=== PATIENT | female | born 1985 | race Caucasian/White ===

== ENCOUNTER 2023-03-10 13:12 | Outpatient (OUT) | payer OTHER, SELFPAY ==
--- NOTE | 2023-03-10 13:44 | US_ITS ---
The [address] [address] Patient Name: ARIEL SALAS MRN: [id number] date: 1985 Sex: F Assigned Patient Location: US Current Patient Location: US Accession/Order Number: [id number] Exam Date: 03/10/2023 13:45 Report Date: 03/10/2023 15:18 At the request of: ABI RIVERO Procedure: US pelvis w/ transvaginal EXAMINATION: US pelvis w/ transvaginal HISTORY: Pelvic Pain COMPARISON: No relevant comparison available. FINDINGS: The uterus is retroflexed. The uterus is normal in size, contour and echotexture measuring 8.5 x 4.8 x 5.8 cm. The endometrium measures 3 mm. Acoustic shadowing in the endometrial cavity consistent with an IUD poorly visualized on these images The right ovary is 1.9 x 1.4 x 1.3 cm. Normal color and Doppler flow. Area of anechoic echogenicity measuring 1.2 cm, cyst versus follicle The left ovary measures 3.3 x 2.5 x 2.5 cm. Normal color and Doppler flow. Area of anechoic echogenicity measuring 2.5 cm, simple cyst No free fluid US/US pelvis w/ transvaginal IMPRESSION: Bilateral ovarian cysts Electronically authenticated by: JOYCE POWELL Date: 03/10/2023 15:18
[2023-03-10 14:17] LABS: Basophils Absolute Auto 0.1 10^3/uL (0.0-0.1); Basophils Percent Auto 0.6 % (0.2-2.0); Eosinophils Absolute Auto 0.2 10^3/uL (0.0-0.7); Eosinophils Percent Auto 1.6 % (0.9-7.0); Hematocrit 40.4 % (36.0-48.0); Hemoglobin 13.3 g/dL (12.0-16.0); Immature Granulocytes Abs Auto 0.03 10^3/uL (0.00-0.03); Immature Granulocytes Pct Auto 0.3 % (0.0-0.5); Lymphocytes Absolute Auto 3.6 10^3/uL (1.2-3.8); Lymphocytes Percent Auto 34.9 % (20.5-60.0); Mean Corpuscular HGB Conc 32.9 g/dL (29.9-35.2); Mean Corpuscular Hemoglobin 30.2 pg (26.7-34.0); Mean Corpuscular Volume 91.6 fL (81.0-99.0); Mean Platelet Volume 8.8 fL (9.5-13.5); Monocytes Absolute Auto 0.8 10^3/uL (0.3-0.8); Monocytes Percent Auto 7.9 % (1.7-12.0); Neutrophils Absolute Auto 5.6 10^3/uL (1.4-6.5); Neutrophils Percent Auto 54.7 % (43.0-75.0); Platelet Count 311 10^3/uL (150-450); Red Blood Count 4.41 10^6/uL (4.20-5.40); Red Cell Distribution Width 12.2 % (11.0-15.0); White Blood Count 10.2 10^3/uL (4.0-11.0)
[2023-03-10 14:30] LABS: INR 1.03; Partial Thromboplastin Time 33.4 sec (22.3-36.2); Prothrombin Time 10.9 sec (9.0-11.6)
[2023-03-10 15:04] LABS: Estimated Average Glucose 100 mg/dL; Glycohemoglobin A1C 5.1 % (4.5-6.2)
[2023-03-10 15:18] LABS: HCG Quantitative <1 mIU/mL; Thyroid Stimulating Hormone 1.774 uIU/mL (0.358-3.740)
[2023-03-10 15:40] LABS: Free T4 0.84 ng/dL (0.76-1.46)
== END 2023-03-10 13:13 | disposition home or self-care (01) ==
LOC: US 13:15
PROVIDERS: PCP Family Medicine; Visit Provider Obstetrics & Gynecology
DX: N92.0 Excessive and frequent menstruation with regular cycle (principal); N83.292 Other ovarian cyst, left side; N83.291 Other ovarian cyst, right side
CPT/HCPCS: 36415; 76830; 76856; 83036; 84439; 84443; 84702; 85025; 85610; 85730

== ENCOUNTER 2023-04-07 11:16 | Outpatient (REF) | payer OTHER, SELFPAY ==
--- OUTSIDE RECORDS SUMMARY | 2023-04-12 11:25 | XMS_ITS | CCD ---
Author Name Unknown Address [address] 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 Washing Machine Loader And Puller Name Role Phone BIN DE LA CRUZ Attending Unavailable BIN DE LA CRUZ Consulting Unavailable BIN DE LA CRUZ Admitting Unavailable CHERYL DEGROOT Consulting Unavailable SERA PEREZ Attending Unavailable SERA PEREZ Consulting Unavailable SERA PEREZ Admitting Unavailable OSMAR FLORES Primary Care Unavailable Carmencita Hernandez Consulting Unavailable MD Trevon Pruitt Attending Provider [phone] ABI LAZO Attending Unavailable Trevon Pruitt Admitting Unavailable Trevon Pruitt Attending Unavailable Sajan LIME PULLER-C, Lashell A Primary Care Unavailable Sajan LIME PULLER-C, Lashell A Primary Care Unavailable Sajan LIME PULLER-C, Lashell A Attending Unavailable Sajan LIME PULLER-C, Lashell A Admitting Unavailable Sajan LIME PULLER-C, Lashell A Primary Care Unavailable Sajan LIME PULLER-C, Lashell A Admitting Unavailable Sajan LIME PULLER-C, Lashell A Attending Unavailable Sajan LIME PULLER-C, Lashell A Primary Care Unavailable Ezekiel Wasserman Admitting Unavaila Ezekiel Fontanez Attending Unavaila ble Sajan LIME PULLER-C, Lashell A Primary Care Unavailable Sajan LIME PULLER-C, Lashell A Attending Unavailable Sajan LIME PULLER-C, Lashell A Primary Care Unavailable Sajan LIME PULLER-C, Lashell A Attending Unavailable Sajan LIME PULLER-C, Lashell A Primary Care Unavailable Trevon Pruitt Attending Unavailable Sajan LIME PULLER-C, Lashell A Referring Unavailable Trevon Pruitt Attending Unavailable Sajan LIME PULLER-C, Lashell A Primary Care Unavailable Tien Felix Admitting Unavailabl e Tien Felix Attending Unavailabl e Sajan LIME PULLER-C, Lashell A Primary Care Unavailable Sajan LIME PULLER-C, Lashell A Primary Care Unavailable Sajan LIME PULLER-C, Lashell A Admitting Unavailable Sajan LIME PULLER-C, Lashell A Attending Unavailable Sajan LIME PULLER-C, Lashell A Admitting Unavailable Sajan LIME PULLER-C, Lashell A Attending Unavailable Sajan LIME PULLER-C, Lashell A Primary Care Unavailable Abi Lazo Attending Unavailable Abi Lazo Admitting Unavailable Trevon rPuitt Admitting Unavailable Trevon Pruitt Attending Unavailable Allergies Allergy Classification Reported Allergen(s) Allergy Type Date of Onset Reaction(s) Facility (1 source) No Known Medication Allergies; Translations: [No Known Medication Allergies] Propensity to adverse reactions to drug (disorder) [facility] Repository Problems Active Problems Problem Classification Problem Date Documented Da te Episodic/Chronic Other nervous system disorders (4 sources) Dysarthria and anarthria; Translations: [DYSARTHRIA AND ANARTHRIA] Onset: 03-23-2020 Episodic Substance-related disorders (2 sources) Cannabis abuse, uncomplicated; Translations: [Nicotine dependence, cigarettes, uncomplicated] Onset: 03-26-2020 Chronic Transient cerebral ischemia (1 source) Transient cerebral ischemic attack, unspecified; Translations: [TRANS CERBRAL ISCHEMIC ATTACK UNS] Onset: 03-26-2020 Chronic Past or Other Problems Problem Classification Problem Date Documented Da te Episodic/Chronic Acute bronchitis (1 source) Acute bronchitis, unspecified; Translations: [ACUTE BRONCHITIS UNSPECIFIED] Onset: 05-15-2019 Episodic Fever of unknown origin (1 source) Fever, unspecified; Translations: [FEVER UNSPECIFIED] Onset: 05-15-2019 Episodic Other lower respiratory disease (4 sources) Shortness of breath; Translations: [SHORTNESS OF BREATH] Onset: 05-11-2019 Episodic Results Test Name Value Interpretation Reference Range Facility [facility] 04-07-2023 L Specimen: [id number] Received: 04/08/23 Status: SALIMA Kilpatrick Num: [id number] Spec Type: Surgical Subm Dr: Abi Lazo Tissues: A Endometrium - Biopsy (EMBX) Procedures: HE/2, Gross/Micro L4 Age/ Patient Sex Location Account Attending Physician Ariel Salas 38/F LABELL [id number] Abi Lazo SPEC NUM: [id number] RECD: 04/08/23 STATUS: SALIMA KILPATRICK NUM: [id number] CRISTINA: 04/07/23- SUBM DR: Abi Lazo ENTERED: 04/08/23-12[address] [facility] DR: Ajit,Lab SPEC TYPE: Surgical DEPT: JEFF GIRON ORDERED: HE/2, Gross/Micro L4 ORDERED: HE/2, Gross/Micro L4 Pathological Diagnosis Endometrium, Curettings: Scanty Fragments Of Cervical Mucosa with acute inflammation. Clinical Information Menorrhagia with irregular periods Gross Description Received in formalin labeled with the patient's name, date of and EM BX is a 3 x 2.2 x 0.2 cm aggregate of adams soft tissue and mucoid material. Entirely submitted in one cassette labeled A1. CPT Codes 00842 Specimen: [id number] Received: 04/08/23-1239 Status: SALIMA Kilpatrick Num: [id number] Spec Type: Surgical Subm Dr: Abi Lazo Tissues: A Endometrium - Biopsy (EMBX) Procedures: HE/2, Gross/Micro L4 Patient: Ariel Salas [id number] (Continued) Signed (signature on file) Micheal Napier MD 04/10/23 1211 [facility] Coding Summaryon 03-04-2023 Coding Summary HTMLBase 64 CwufwvarBKf3zAl+PGhlYWQ +[id number] NMTElOSywgQVBQTElOSyIgb eTkSC4aoOQcHBCo IC8+PS2xGFRiMytobFUgu3C 0wWY0S21iku3sAScgdHI2VC PfZbBdhflaq9onbVe3UWrqU mluOyBt BXVtlX04EZN0sC91Ys56sVQ joHDpj6nlaDh6LbDxDLDyFM C9eFnlYBwjk4KjQUFfN13ow ZDiq7K5 RJKcwGjdnBDnZsYnhCZ5lS7 hBXgmzrlza0fqhasaRqg9lu 71rVPmt3V8zKI7B7WrvhT2X GJvbGQg DomcrBXViB2alfvnn6iulvl tIuIkYCEcDAd5EYw0FSXihX cfWkEiTJ52TGB6RTHollMmW 2FsLWFs lXhhHrZ7x8Z5Vs1ZV8HTEpg fJ2CIPMLQLCgtqEG+PC90cj 50U5TpAdahZuc9ODDaDOK8d YX7mH6e SGNnKBtxq1J2bBF4E2KmqzS szr5ec5hhEFZwXOhyA00cmB Mpr8O8JZKshOC2YNGitSizR iBzaG93 Oyc+AIGdbWdqv1RzVgzmc0v yr2ntuHe8OrdvWUDuliAuyZ okLWV6m4ScKv9fLRZceXL4f TD1jY3b RtErKbB5KJerF485RpVqvDR kEvuhM19hK1JugLM+PHRyPj n6QQEquGrlWI0xC1LvKXKvd mctbGVm zMsaHP1vPZWkoyvqHVUhbV9 mAHSoV4e6LiWcMtJ7SUrwA1 BuARJossluDd81xY1pPpTnI lH0TBot V7YrhmP5OOHfuQLoTDfjAOH 1Y22mo5L3SPUmHAKaQFX3xQ S5iT8ypNnbvkjodYRppKeji mVydGlj KLnoYXipD752XHUovUefFeR vZGluZyBEYXRlOiAgMDEvMj UvMjAyNDwvdGQ+IGXnVAI7z WxlPSAn hWStFEfvCu9pzMvdpGiaSN1 oQAFjmexxKJAljH1hEHJcnE DwzAzsJC0vAUHextsxq480Q iAxMHB0 CMJumBGsL8SdnS9zLcAcNYS vARMvV7AbzRVsFHjuH551QE xjCaT6EWXbbbMxZ0PeQTFzv WduOiB0 r9D5St7Zg7OnpskkZ7VhrQM eLeHlKfweWGa9X2IwDwiqkY I+VC80ZSRoGG17PFg5YHB9s WxlPSdi MIWpL0ZklG8dMvSsDAFdOPT kOyc+PHRhYmxlIHdpZHRoPS imWCYrOcLtxBykQC4zZy7mI GVyLWNv xMmvjHTkGnXpx4wgPKMiIIe mUA9clLzyX5PafQN1DVNwt8 s2Xr82Y97jN5DhyBY+PGNvb ZA9dMS9 zP2tMsHzYiK0TZxpA533CwT haNZaIawgg0oaj6bdcYt9Jb J6KJWdvuHcaNvoITO3z4NyT c26G57u IHdpZHRoPSIxNSUiIHZhbGl skj9hrL4dZt0+TWPhlBE4cJ O1tZ6wXmHwFxP2VZjdR609O nRvcCIv Ktajg7kpn9dolMn4SoUjUEK nodCpwPxtXQE3d5HsLb39T7 OdeBtyn1EkSkj3qf21mQFcw 6X4lVX1 T9NbXHFlzqusbDJliHyiFF0 eHNOrhhreKTDjbL8oBGVtI2 p2AyTnZxR3ROvuC5NdgzS3R GJvbGQg BHLtyCNXtJ9muqpfv5qncdt vBeIlJMOfHAd8FAg2KPVhgR lzMgEnYWQ0ZuQ3YIO6wUQig A7vyKjv gtxooJ9rBpa+SRR7aDXitNJ LWU7cItghkLV+HJYjQAC0mY owSEyfAXEclB8dOGVnJ9p2F iAwLjA1 JHczI4SdpxS4PSGwaNMlIWX zvMYOcP4zhxicy5osogkyXg ZvXVXmIGp7RUd3YBFllXqtA iBsZWZ0 BbD8WZR2fJImaO5kpAnjkvr noD9mXci+OgprgVrsWPI2JO m8H7QnIuq2RRZlzJdaEF3vc GFkZGlu Sf5bbRusjRzvBW8rLNJmksj jf175FbFpa1hhNIWhrULqDK jxCBH8W19xa9O9VQEqADBmC QC8cYT2 jS2cdKjkmwgxgETddHokynT nvGrrWImgYVgsT323EURqmD skChIzTQk6Z4XcYru7HULif DecVA1i uHZoBOxkBd0njMjkaBaoLQ6 lFIQppocui468QyCvp4hcZM YgyMQhTPpvQDD6D47py1M5G CMwMDAw XKZ4fQO5qS1uzOhxbfersWJ mdDsgdmVydGljYWwtYWxpZ2 95FKDzjJqeEpNbiBo9X0YbU cr4HFTh zFhtSH5kkNDyNSvxHr8erSc rnQpaWF7vOGBjpjdzl883Cb Zuy2hiSLSdvCYyEZiyPCH9N 67ez5U8 FUXvPPGhEPU7aCH3rJ8dwVr nbjogbGVmdDsgdmVydGljYW euLAdjK134ACUygDgsXeKrj GllbnQg FHuhGYj9Z8EyWrvmyHT+PC9 4VPHzSB91qOPewUGlp4dtwE r9UuAxYSGpWNL9iQhaQUwjk 3JkZXIt F51czEUfn9Y9SGFynSzlrSO mRbIuuIS6sQ5kMXpiftzjn9 hxlezlRpmkq5kzcz43fA47O 29sIHdp ZHRoPSIzMCUiIHZhbGlnbj0 hfE4mCt8+NWKpfQS2aFB4zY 6gTSAjPiE0YTrwP242FxArg CIvPjxj s9xgj7hqiTp0WpO8CWPdwhB mhQhpRWD3o1KzEv26S04vZD dpZHRoPSIyMCUiIHZhbGlnb o9reI1d Ii8+CBMasEG5pBT0jQ7qKaL vVeN8LEflS275YtEpbGBuKp wtD73wZ8IaaRP+ESExAne9X CBzdHls HO5wxPDrXXxkGm5sGHB1LbF eAyOzHFlmS6IvFSWclslwxp cmoRS8MOCzXBEccX70Xl7zt DogMTBw qAZEfP2gnezmn5bisyxgCfK pALNtMRt6FJc2PNCkpVicLz AsANL2TyU6HGP2tTMimX8zr Glnbjog hH0iH6UiTWIquplnVf36qX4 hFvFgXiF4KUczOav+TUlMTE VSLCBTSEFXTkVMTEUgRTwvd GQ+PHRk DZF1lFzqVFtcMIOgfQ0uETM sW8j8TvSlEhZ2TFpuX1InTV GhjyvpVu04rO0ySqQsGjQ4K YzwD5Aq cdE8CVFmjASdWKaeYXN0U76 ih9I4NXYhLJDyOMM8yVS2tB 1hbGlnbjogbGVmdDsgdmVyd GljYWwt YXbaW045RIBnmNbxJvYtPcH gRhE3FQj1J1TsOnj3IRPxjA rcLU4wgNAkNSuaVg9nmJanw MgsMB7g QRWlcbouGXEwrB5jUXTpvRI pnZetZS7hHJMtktxsn396Sg YzPCM8TBAxnMDcC7PjdD5nC iAjMDAw AVBaH3JkyOEzNDwzI265KOh hRbB4NOHdcqYvK3OvZCGumR ghOeN4c7M1Ye9eJQUBGWKnl zwvdGQ+ PPPxQQB1zOfvIQvyZTXrzK0 gYYUuI2p4RgFsDfJ5HYmaM9 NpPDVfuhghDx63kP2gUuIoE aC9QLgj Z8OmnrO5SZTqtTDnULibHOG 0E78ew5R9MEPvQBHoARX1hF A9dF5qyLsymgnmwGSwvMdhk mVydGlj MQdgHTunW139CNSfeDqzXzF FTUFMRTwvdGQ+ZMBeLNF4uG qpYJcbSMSooE7yOZWwG6u1H iAwLjA1 HCpyZ5QwGFYqmigoQj39kN8 zMhReDsW6SNczU8RmkmA6OU JjqQFePYekKHG8W60ay6R4X CMwMDAw YYB7mTO3mD1rzDmfpuhdsBZ mdDsgdmVydGljYWwtYWxpZ2 17SFHydErzBf1CCT83UR53L 3RyPjwv dGFibGU+PHRhYmxlIHdpZHR iSWjrQNPjHdIbtSyzZO5wGp 9yZGVyLWNvbGxhcHNlOiBjb 2xsYXBz UFehGB0swCnuS4WimLK6HVQ qq6o6Wt71R42pQ2QnpST+PG LqfIJ8lCY5uJ0xQgYlWmY6E LaaD149 AdZxaTDvWlvxc8msw5wtxLo 5DwQvXZUstlHdxMjuJMW6x8 PjZs04M75sMBzfNGOfJWBcH CUiIHZh oMcyqv1dvU8dWu6+PGNvbCB 0hIN3vE4qXwUjOoW6JUvcY6 49UlLvyBKwSpmyF10kX6Tqw XA+PHRy Elo0LYGvbRdvDG4geJRdRAp sCa2uWQL3ZnFfZpDjHKevY3 PqCTWbodvitbadjDM1PBYjF DUwaW47 Zi9drBulQx9cYASvZNA3AKG rrZXbP2NmlD6eScJeUESzGM VcG6ZneIVeNCvyS522SZvjG pL2HWXm cfKmH5QpDUZxiQxcBcZ9t8U 8At2NcUadvOOqMJ0hAqXqCL r0O5EgYnt3LLAlkUquVS1iz GFkZGlu Jx6ziLdvdVmbDG1kAHLnaaz dk049JyTkk7hiCZCtaSWdOK thYZS5I36pw9U2VLVxIJDyW HD3sGR1 nK7xpAvolbseqFZraTtjnyU rjCisBBjwOPbmA635WWBswA gjLsHHJrh1X6AeIgd3PITxf UajVU0b jPRsCEaaHw9owXjhqNuyZM6 zFBFcmxawm045VnCes2yuID XcuNEaWEiyLHW9C28ae4U0E CMwMDAw YLI1wJW0dS6zvAtuacdveGN mdDsgdmVydGljYWwtYWxpZ2 74JQKhcRrdKb3MRrw2P5ZnM pl4NVPn rNpeTZ1wxMQqCHyfDy4znWn kqQsnGB7wHNJgkkpgi986Ev Qsp0dsGKFrnGXvZErgPVE1N 60dl1B0 KYHuCFWeOZV0pCD1aJ9ljXc nbjogbGVmdDsgdmVydGljYW xfJBvtC298CDMybDaiRyVim WVyOjwv dGQ+UO05dw64Q1JtAqwpYkw 0FHWmRYG9bHT1zM3cXCEhDN csh4G4bIF3K4XhtbRsdy1vd 2xsYXBz ZTo (more content not included)... Normal [facility] Patient Handouton 02-17-2023 Patient Handout Dermatology Pityriasis Rosea Pityriasis rosea is a rash that usually appears on the chest, abdomen, and back. It may also appear on the upper arms and upper legs. It usually begins as a single patch, and then more patches start to develop. The rash may cause mild itching, but it normally does not cause other problems. It usually goes away without treatment. However, it may take weeks or months for the rash to go away completely. What are the causes? The cause of this condition is not known. The condition does not spread from person to person (is not contagious). What increases the risk? This condition is more likely to develop in: ? Persons aged 10?35 years. ? women. It is more common in the spring and fall seasons. What are the signs or symptoms? The main symptom of this condition is a rash. ? The rash usually begins with a single oval patch that is larger than the ones that follow. This is called a herald patch. It generally appears a week or more before the rest of the rash appears. ? When more patches start to develop, they spread quickly on the chest, abdomen, back, arms, and legs. These patches are smaller than the first one. ? The patches that make up the rash are usually oval-shaped and pink or red in color. They are usually flat but may sometimes be raised so that they can be felt with a finger. They may also be finely crinkled and have a scaly ring around the edge. Some people may have mild itching and nonspecific symptoms, such as: ? Nausea. ? Loss of appetite. ? Difficulty concentrating. ? Headache. ? Irritability. ? Sore throat. ? Mild fever. How is this diagnosed? This condition may be diagnosed based on: ? Your medical history and a physical exam. ? Tests to rule out other causes. This may include blood tests or a test in which a small sample of skin is removed from the rash (biopsy) and checked in a lab. How is this treated? Treatment is not usually needed for this condition. The rash will often go away on its own in 4?8 weeks. In some cases, a health care provider may recommend or prescribe medicine to reduce itching. Follow these instructions at home: ? Take or apply dexa-gqq-jwougjr and prescription medicines only as told by your health care provider. ? Avoid scratching the affected areas of skin. ? Do not take hot baths or use a sauna. Use only warm water when bathing or showering. Heat can increase itching. Adding cornstarch to your bath may help to relieve the itching. ? Avoid exposure to the sun and other sources of UV light, such as tanning beds, as told by your health care provider. UV light may help the rash go away but may cause unwanted changes in skin color. ? Keep all follow-up visits as told by your health care provider. This is important. Contact a health care provider if: ? Your rash does not go away in 8 weeks. ? Your rash gets much worse. ? You have a fever. ? You have swelling or pain in the rash area. ? You have fluid, blood, or pus coming from the rash area. Summary ? Pityriasis rosea is a rash that usually appears on the trunk of the body. It can also appear on the upper arms and upper legs. ? The rash usually begins with a single oval patch (herald patch) that appears a week or more before the rest of the rash appears. The herald patch is larger than the ones that follow. ? The rash may cause mild itching, but it usually does not cause other problems. It usually goes away without treatment in 4?8 weeks. ? In some cases, a health care provider may recommend or prescribe medicine to reduce itching. This information is not intended to replace advice given to you by your health care provider. Make sure you discuss any questions you have with your health care provider. Document Revised: 07/22/2021 Document Reviewed: 11/20/2020 Elsevier Patient Education ? 2021 [employer] Normal [facility] ED Clinical Summaryon 2023 ED Clinical Summary [facility] ? Urgent Care [address] [place] [address] [id number] Clinical Summary PERSON INFORMATION Name: ARIEL SALAS Age: 37 Years Sex: FEMALE : 1985 MRN: Acct#: Visit Reason: Skin; RASH Arrival: 02/15/2023 11:21:04 Discharge: 02/15/2023 12:00:00 LOS: 000 00:39 Check In: 02/15/2023 11:21:04 Checkout: 02/15/2023 12:00:00 Address: [address] [place] [id number] PCP: Lashell Tanner PROVIDER INFORMATION Provider Role Assigned Unassigned Nallely Crow SELLING SPECIALIST Nurse 02/15/2023 11:28:03 Ezekiel Wasserman ED PA 02/15/2023 11:30:29 VITALS INFORMATION Vital Sign Triage Latest Temperature Tympanic Temperature Temporal Artery Pulse Rate O2 Sat 98 % 98 % Respiratory Rate Blood Pressure /79 mmHg /79 mmHg MEDICAL INFORMATION Medications Given: Allergy Information: No Known Medication Allergies PHYSICIAN DOCUMENTATION DISCHARGE INFORMATION: Discharge Disposition: Home Discharge Location: Home PATIENT EDUCATION INFORMATION Instructions: Scabies, Adult Follow-Up: With: Address: When: Lashell Tanner [address] [place] [address] Within 3 to 5 days Comments: Diagnosis is skin rash, it appears consistent with scabies. As we discussed in regards to a contact dermatitis history, reports starting some new laundry detergent. There is a remote possibility this could be the cause of the rash, but unlikely from appearance. Seems more consistent with a scabies type rash. I provided you medication to treat the rash use as prescribed. After treatment you should be able to go back to work. Also starting with medication to help prevent itching in the form of antihistamine. I provided you a work slip for today. Follow-up with your own primary care provider next 3 to 5 days. Return for worsening symptoms or concerns. DIAGNOSIS: 1:Scabies Patient Understands: Yes - Patient/family/caregive r verbalizes understanding of instructions given Comment: Normal [facility] ED Patient Summaryon 024 ED Patient Summary [facility] ? Urgent Care [address] [place] [address] PATIENT DISCHARGE INSTRUCTIONS Patient Information Name: ARIEL SALAS Age: 37 Years Date of : 1985 Reason For Visit: Skin; RASH Arrival Time: 02/15/2023 11:21:04 Primary Care Physician: Lashell Tanner Attending Physician: Ezekiel Wasserman Comment: Patient Education With: Address: When: Lashell Tanner [address] [place] [id number] Within 3 to 5 days Comments: Diagnosis is skin rash, it appears consistent with scabies. As we discussed in regards to a contact dermatitis history, reports starting some new laundry detergent. There is a remote possibility this could be the cause of the rash, but unlikely from appearance. Seems more consistent with a scabies type rash. I provided you medication to treat the rash use as prescribed. After treatment you should be able to go back to work. Also starting with medication to help prevent itching in the form of antihistamine. I provided you a work slip for today. Follow-up with your own primary care provider next 3 to 5 days. Return for worsening symptoms or concerns. Scabies, Adult Scabies is a skin condition that happens when very small insects called mites get under the skin (infestation). This causes a rash and severe itchiness. Scabies is contagious, which means it can spread from person to person. If you get scabies, it is common for others in your household to get scabies too. With proper treatment, symptoms usually go away in 2?4 weeks. Scabies usually does not cause lasting problems. What are the causes? This condition is caused by tiny mites (Sarcoptes scabiei, or human itch mites) that can only be seen with a microscope. The mites get into the top layer of skin and lay eggs. Scabies can spread from person to person through: ? Close contact with a person who has scabies. ? Sharing or having contact with infested items, such as towels, bedding, or clothing. What increases the risk? The following factors may make you more likely to develop this condition: ? Living in a correction or other extended care facility. ? Having sexual contact with a partner who has scabies. ? Caring for others who are at increased risk for scabies. What are the signs or symptoms? Symptoms of this condition include: ? Severe itchiness. This is often worse at night. ? A rash that includes tiny red bumps or blisters. The rash commonly occurs on the hands, wrists, elbows, armpits, chest, waist, groin, or buttocks. The bumps may form a line (chastity) in some areas. ? Skin irritation. This can include scaly patches or sores. How is this diagnosed? This condition may be diagnosed based on: ? A physical exam of the skin. ? A skin test. Your health care provider may take a sample of your affected skin (skin scraping) and have it examined under a microscope for signs of mites. How is this treated? This condition may be treated with: ? Medicated cream or lotion that kills the mites. This is spread on the entire body and left on for several hours. Usually, one treatment with medicated cream or lotion is enough to kill all the mites. In severe cases, the treatment may need to be repeated. ? Medicated cream that relieves itching. ? Medicines taken by mouth (orally) that: ? Relieve itching. ? Reduce the swelling and redness. ? Kill the mites. This treatment may be done in severe cases. Follow these instructions at home: Medicines ? Take or apply crvw-sba-wfzcxme and prescription medicines only as told by your health care provider. ? Apply medicated cream or lotion as told by your health care provider. ? Do not wash off the medicated cream or lotion until the necessary amount of time has passed. Skin care ? Avoid scratching the affected areas of your skin. ? Keep your fingernails closely trimmed to reduce injury from scratching. ? Take cool baths or apply cool washcloths to your skin to help reduce itching. General instructions ? Clean all items that you had contact with during the 3 days before diagnosis. This includes bedding, clothing, towels, and furniture. Do this on the same day that you start treatment. ? Dry-clean items, or use hot water to wash items. Dry items on the hot dry cycle. ? Place items that cannot be washed into closed, airtight plastic bags for at least 3 days. The mites cannot live for more than 3 days away from human skin. ? Vacuum furniture and mattresses that you use. ? Make sure that other people who may have been infested are examined by a health care provider. These include members of your household and anyone who may have had contact with infested items. ? Keep all follow-up visits. This is important. Where to find more information ? Centers for Disease Control and Prevention: www.cdc.gov Contact a health care provid (more content not included)... Normal [facility] Urgent Care [place] [address]24 Urgent Care Record [facility] ? Urgent Care [address] [place] [address] PATIENT DISCHARGE INSTRUCTIONS Patient Information Name: ARIEL SALAS Age: 37 Years Date of : 1985 Reason For Visit: Skin; RASH Arrival Time: 02/15/2023 11:21:04 Primary Care Physician: Lashell Tanner Attending Physician: Ezekiel Wasserman Comment: Visit Diagnosis: Diagnoses This Visit Scabies (B86) Skin ([id number] ) If you received any narcotics, sedation, or any other medication that causes drowsiness for the next 24 hours, unless otherwise directed: ? Do not drive a car. ? Do not operate machinery such as power tools, lawn mowers, drills, sewing machines, or stoves ? Avoid alcoholic beverages and drugs for allergies, nerves, or sleep ? Do not make important personal or business decisions or sign any legal documents With: Address: When: Sajan HUGHESLashell [address] [place] [id number] Within 3 to 5 days Comments: Diagnosis is skin rash, it appears consistent with scabies. As we discussed in regards to a contact dermatitis history, reports starting some new laundry detergent. There is a remote possibility this could be the cause of the rash, but unlikely from appearance. Seems more consistent with a scabies type rash. I provided you medication to treat the rash use as prescribed. After treatment you should be able to go back to work. Also starting with medication to help prevent itching in the form of antihistamine. I provided you a work slip for today. Follow-up with your own primary care provider next 3 to 5 days. Return for worsening symptoms or concerns. Medication Information: The exam and treatment you received today in the [facility] were for an urgent problem and are not intended as complete care. It is important for you to follow up with a doctor, nurse practitioner, or physician?s funeral director's assistant for ongoing care. If your symptoms become worse or you do not improve as expected and you are unable to reach your usual health care provider, you should return to the Emergency Department, we are available 24 hours a day. For those patients who have received Radiology results, the interpretation of your X-ray as given to you by our Urgent Care physician is only a preliminary report. The Radiologist will review your films and if there is a change in the diagnosis you will be notified by phone. Please make sure you have provided a working phone number so we can reach you if necessary. In the event that you had a lab culture while you were a patient in the Urgent Care, you will be notified by phone if there is a need to change your antibiotic. Please make sure you have provided a working phone number so we can reach you if necessary. [facility] Care has provided you with a complete list of medications post discharge. Please inform your patient registration rep/provider of your visit and for further instruction on these medications. Any specific questions regarding your chronic medications and dosages should be discussed with your primary care physician(s) and/or pharmacist. New Medications [facility] [id number], [address], [place] [id number], [phone] cetirizine (ZyrTEC 10 mg oral tablet) 1 tab(s) Oral (given by mouth) every day for 10 Days. Refills: 0. permethrin topical (permethrin 5% topical cream) 1 chay Topical (on the skin) once. to skin head to feet, remove by washing after 8 to 14 hours. Refills: 0. Additional medications on your home medication list not specifically addressed. Please contact the ordering physician if you have questions about these medications. apixaban (Eliquis) 5 Milligram Oral (given by mouth) 2 times a day (scheduled). managed by cardiology. metoprolol (metoprolol succinate 25 mg oral tablet, extended release) 1 tab(s) Oral (given by mouth) every day. managed by cardiology. Refills: 0. Visit Information Allergies: Substance Reaction Symptoms Type Comments No Known Medication Allergies Drug Vital Signs: Vitals and Measurements this Visit (last charted value for your 02/15/2023 visit) Vital Signs This Visit Temperature Temporal: 37.2 DegC Peripheral Pulse Rate: 77 bpm Respiratory Rate: 16 br/min Systolic Blood Pressure: 116 mmHg Diastolic Blood Pressure: 79 mmHg SpO2: 98 % Oxygen Therapy: Room air Blood Pressure Method: Automatic Measurements This Visit Height/Length Measured: 152.40 cm Weight Measured: 66.95 kg Weight Dosin.950 kg Body Mass Index: 28.83 kg/m2 BSA Measured: 1.68 m2 Problems List: Problem Onset Comments Anxiety BMI 28.0-28.9,adult Cervical cancer screening Depression Fainting per patient random fainting which started a little over a year ago. Last episode was about 1 month ago. Per patient she feels it coming on and will sit down. The next thing she remembers is waking up and getting cold then hot then vomi (more content not included)... Normal [facility] Reminder Messageson 01-21-20 Reminder Messages Entered by Palak López RN on January 20, 2023 13:38:33 EST order placed by PCP From: Palak López RN (General Surgery Clerical Pool ([facility])) To: General Surgery Clerical Pool ([facility]); Sent: 07/21/2022 14:02:43 EDT Show up: 01/20/2023 13:02:00 EST Subject: mammogram Reminder: Please call patient to: Please schedule patient for: repeat left breast diagnostic mamm Please ask patient to: Results Follow up Required for: Visit Summary For ARIEL SALAS Age: 37 years Sex: FEMALE : 1985 Address: [address] [place] [address], [address] Home: Work: -- Primary Care Provider: Lashell Tanner Race: White Ethnicity: Not or Language: Cymraes Health Plan: 1?MEDICAID [facility], 2?MEDICAID [facility] Outside Recordson 08-19-2022 Outside Records [id number] [facility] - [facility] Result[facility] - [facility] Results [id number] [facility] Pathology Sendout Teston Pathology Send Out. See Report [facility] Comment on above: Order Comment: Lt br east bx 600, samples x2 taken at 835 Performed By: #### 2 [id number] ####[facility] (DEFAULT)[address] [place] [address] Coding Summaryon 07-30-2022 Coding Summary HTMLBase 64 GscodlncVFa1pLx+PGhlYWQ +NY7HQZOgW37pgCIpxM5xX4 NMTElOSywgQVBQTElOSyIgb eExJB3raJQrTZNv IC8+PM2rGVQmBhrrjXIlv8B 4hUE0H43sbn8lJFmohXF2BV WoYmUgdrcog8hdeGs2QVmnZ mluOyBt ZBJubM81VTB5rR60Km98iMK npQFtq4qbxWa9LvPeZUYlED X3oJmrAWhhx5HlJCUsC50na RYjz9A3 ZUDcwJujpWBvKgDrfMP8mI2 yURlsnvzue1ukvguzSvr2fm 85uYXhy4Z8uFZ4P7HutsF8O GJvbGQg NmmpjXUGyC9aucheq7rlzei tGnKzULGwZMy1BTw2ZDRndJ zxDtYjAT72VMN7FCBbleEjD 2FsLWFs xOkwFvU4l5Q4Bw5CG4NYUur sS2ZKQBYKWVougJC+PC90cj 21C5LeJqyrQdt9PHTkGXX9a RB4xG8a CFGcHJrjw7B2pYS6E4SqfnW cjm3po8hsHRWtSYujT57ijP Psy7Q9DIQwiKE3PZIwiIhvX iBzaG93 Oyc+QMMuoNers7MrLkofn4k kp1gxqSw1RzweCKVmcfWfeP qiGML8a4UlEd9wEBMywIL3w BB6lQ5u JyIbWwP3KZytD435PjFrxDD vQereY89lO6QseCD+PHRyPj u9QDWcgPdwCH8bI4WxLPKpm mctbGVm oFyoIO6gGRFoybcbIALufJ9 qVGHrX8i8WpTiOiP4NLixC6 MjYDHkezwqSq61cV5zJzJfI hT5TCgs I8FjtjM0KTKuiNTpGVwmIUS 5Q40io9B1JLWmUZGfOEA1iF G3uG2ozCrzlumirLRqtXsfo mVydGlj UWywPXyvW627GJSuvTsvWfN vZGluZyBEYXRlOiAgMDYvMj IvMjAyMzwvdGQ+RCDuLCT5k WxlPSAn zASnAJhoSj4qoEgnhJxsJC3 pGWKlnovrJLKpcH0yIBEecD IkfWzmQZ4nLYXhvjxfl133J iAxMHB0 TPJevAJvA4ZmuI1zTgGrQGQ rVEKsJ0DgiFEiWLogH392NZ fkPvG6RXCqtrBcM6UjDVFri WduOiB0 g9H6Tu0Ly6GamvarN1RtwNI iLgYrDuxzXHo0E7IiZxpqgC I+EQ38LHHmNO03IAh9OPH2j WxlPSdi BQCjT8TabU0eRjIvFHVsPCG kOyc+PHRhYmxlIHdpZHRoPS obRQVlLeKioQmuRU0oJl4qJ GVyLWNv lTearTIvZgYhm1pkVPFyZNs hGV2hsWjxL7OotVN3MLCjp4 l8Vj04J16tH1FqwQS+PGNvb JR7dTQ2 hK7jWbElEcB7ZPehJ259SyD dnXFmZlxwh9dda6kuvUy2Dd P7MBKamzQbeEjcZUG3f1JiW i39W67r IHdpZHRoPSIxNSUiIHZhbGl hig7kaE8oQi1+ZBPhbLZ9gF Q5xY2vZrLkWyC0RDliN931N nRvcCIv Fgzog3wme3mwzCm8VsNrGOF athVklTkbOBM4r7WqFz44G4 VexZhgx2FuCov8qt27lZEsp 9J1zMY0 P7QoLZDbwrfmhVCanOixHU5 jINBpiavkFKUbmD6sGGRkQ5 p5QmUnCgE7UXwtK0XvvsE5U GJvbGQg VRSenNMVtZ4fwrflw0uhvjl qRyLcAZKcBMi5XGc3MTNqnO yeIsBpGTS8WhG5IMR1cZQol N8flZei peybwX3yFtk+IRN4sZVwiUN MPK1iEiddvDZ+AVQoJWM5gM vpHXskYPBlkS5iZMOqZ9d7V iAwLjA1 ZOrbD0YftqH0TQDumNQjJSO bpOOGuE3ihscjw2wzxfqsBm HwXYEcNMo7KSn7BPBqbPehG iBsZWZ0 IqO9SZE1mCWntS8diMrnbxl yyO1tFlz+LjqkeWlyIXB6TT x1D3BwAgw6STHjcYdgET7hs GFkZGlu Fo7qqBwjuHrnNP7gICQhfra cw050FoDgh0cvQXWvoPHnZA zgGRN3P67qj6I8RKFfGIOmO ZS1eTO2 hJ5kySjqqmzqoNStrLkfviU bwJmeBSxwLXknQ734KJAmsS afNzPkWZe8Q3XfOoi5DSWbx JrwDH5e cMOfXYijLn7iuUrvxBohXA5 zLVXodzkdi409GtNks9fbVM JnpRCoRMitHID2W91zu3J2H CMwMDAw XYN1sVD3lN6klHqdwhmjmNZ mdDsgdmVydGljYWwtYWxpZ2 81CRDjdXbvTrIyzAh9C2UiR qx9QQLu qXhgWY1kaIZhKYllUe1zaIp dpQdtOB4xUSEcihuiq034Ku Pom3ooQEIroYJhAAtbJSP7L 59ox8E1 HHXcQVQzTXK5hNK8vZ3wnRy nbjogbGVmdDsgdmVydGljYW eoTLcrF402YPXaqAtsScDdj GllbnQg SAksWSn2K4XaXpnahCQ+PC9 9VSOaEZ58xJXclUSww3dobT g8JgDxLPElRPE1wWvhMKnzt 3JkZXIt K02xyCXzv9Y7AOEwpNwseJP dZxJsbWA6yZ5jWLyoeyidr3 zbbychLvsko4kfti76vK38S 29sIHdp ZHRoPSIzMCUiIHZhbGlnbj0 boJ6vBy8+HYYkdAT4sHC0kS 7nYVAhLoX7VGvzB716DpSir CIvPjxj y9sst7tjbWt3FlU7EWLvcjB olPsrWIF4r6RhQn81O71nOI dpZHRoPSIyMCUiIHZhbGlnb b9baL2x Ii8+VKXldYJ4mYN0aH9pLuD yDaO4FQpyT529CfCttSAbGo kfR73tX0ZapPK+SILqQkb2L CBzdHls BY4grCWtZVadHs8qMVW1AqH yWjGkABxkF9OgOGJwlqdvji kudBO6MPBaXGOxwD13Im6ka DogMTBw gIINeH7shsyhe0oxvjoiZxW mRJAyECh6XRm7IRNthWcoSm YtTCH9BvN6EEL3sYPmpZ8dz Glnbjog zG8cM0HtSVDictaeTj93yP3 fJrOhTdV6ZDnzDkg+TUlMTE VSLCBTSEFXTkVMTEUgRTwvd GQ+PHRk OLW3xGseGBqzMGIkfW6aUUN zX0w9ViAqOmO9FTikX6NfEO HsqiquQs51sT7lJeHrBnD3P UkiU6Sn abH7QDKxpGXaQAwpPFG3M94 ef0J1HJUuVYShBYZ1yKN2eY 1hbGlnbjogbGVmdDsgdmVyd GljYWwt RUkeI138ALKdpIfpBbRiIxX cKkY4DJv3J4BzRsr0RMYmeG scPN3laMGlROoeWf6gnPbqp CorVB0l TUTlouuySAEzqQ2uXVJoeIB fdFbbEN7lQUIkblhcl988Kn SiOJD2BXNrnDLjK9UzmD4mN iAjMDAw HTRxG4LgdJBoZTqdI925BDe hVlL5FVOmcvPgH7JkYQQvgL zyKcZ4o6X2Qt0pKHHZCBXnd zwvdGQ+ NIScKZU8cGanDKtsAEHbaM6 cGUOpX0l9TpXaTfF3SFvnX7 ThSPQfscuoYt37gP6yCeUeS yO8JQei H9SimnW9ZYWzfOTpQCipYRZ 9X36ju8W7CLMbLLQxDTL8dT G4bL2qnQziomzxiGCdjKznq mVydGlj SHkbBZjgQ149SQDsjTlnOoU FTUFMRTwvdGQ+FUGgQLF3kF kqKFrmMYTevX0wDWZlU1p1B iAwLjA1 DHezU0XfQJDpwrpiOg90nA5 mDiEsSgT8GKruY2NhzrA8CX HilTVkFRkwXKT3D15jd4X0Z CMwMDAw EBX3bSC4rW8yfZqiccpatAI mdDsgdmVydGljYWwtYWxpZ2 58WGPtyFgoOx0CZP19NG68N 3RyPjwv dGFibGU+PHRhYmxlIHdpZHR hJAksDUSqSxQzfQkhAW0vCm 9yZGVyLWNvbGxhcHNlOiBjb 2xsYXBz OUycBP4hyMghZ6FszOI2AJT dc7x1Uf53R85uI1RbjAB+PG AkkXB6gFZ6iI8iKdRrVvG6G UusA361 SlYioTLbDgwbl9qpz4vbxIh 1VtHrDAEhyvVjmGwzBGT3f8 UyDu24K59xYMwrMVBjOELfU CUiIHZh jHtrzj3pmG3nCx4+PGNvbCB 7sDT5kV4rPmAdNoN9EIvfK2 84TvEvyBCjPruxY47zZ2Eyy XA+PHRy Ddt8VYOvmMebJG7ujUYgRDy kVk8bIDC7IxDbOmXvDXddV4 OcHDKpydjvzopagLD6BEVrH DUwaW47 Bo8hgUijHm5gXCChARU5ANG iyHWgI0VczP4xZtWzXPFuCN VwU2ThrWFtNOaoT156OKekL kP4OSGl veGmD5VtPXFjpSbaGeA6r5P 3Mq7EeWgcfTLpIO3tGzBeBE i5S3RoVih5MWTyaEmiZB8gb GFkZGlu Gi5umWmahApdBC8pPVXlpny nw256PyGip7hqRHEkuLZuOB rwJQP6N18gp4L4YXNlVWHoH YG2lBP9 qG0ihFcrmshqqRGllNyuvgB voAdkIZfiKEywN196XTHehY bqOvMUMqw7G7IfEnl7EYVuk BwaKM0m uENqYWgiZh2mcOstsAxtOY5 nIVFipetqu500BtNte6jjLI SxgZAkUClhXAX7S63mu8G2P CMwMDAw XGF4pNM3hQ8wfKhsumikhRT mdDsgdmVydGljYWwtYWxpZ2 77QAJdrOwbBd2IPvc9W7RhG qv5KTDg dLlsFW6zfFLjODacNg1oeRt tpAxoHC2iXNOszzbtd590Gm Hfw2omEOSmyTJwEGntQPC0L 52qh1B6 SQTuAGGtOXC9uOM0uO2auUt nbjogbGVmdDsgdmVydGljYW nwUDgjF028XGKbrVypMnLst WVyOjwv dGQ+CL00dv75S5HxDxpvTqa 4CEJcGOA7bLT1sC3yCMRzHW cvp0L9wTI7J7AzynZtdt4bl 2xsYXBz ZTo (more content not included)... [facility] Coding Summaryon 07-22-2022 Coding Summary HTMLBase 64 QhaktkvpJEi0sNs+PGhlYWQ +OC3QLMFeN54ayRUfdG3qJ5 NMTElOSywgQVBQTElOSyIgb hJjPY2icQDkDHCr IC8+CB9hWCMcGpfkaFUel8S 6uRP3H95pag5oTLzzbAT3TX CmWmLspwygb0rafCr4BKuwZ mluOyBt JGBcwB67CZB9eF75Tr97pCY oxJPih9tvkAl0QzYyJBSfAU R6tRthWWzsd4QiIFFiS73eg VWop5I1 FHQyeGefyFHcPfKtvZP2oA7 oPLqdjendd1bhlkkxAvc8xa 50fCCnr2A4tEO0W3SgbfS2I GJvbGQg VxmkrFMMaI4dvaind9flpau dEuLuLANaYWq6GXm5QDMqlT okQoOwKB12EHM0GMIqcoUbQ 2FsLWFs yPhmSwL9c1H2Up4FS8OPCsh uQ8XPYUYSVEvoqKW+PC90cj 31F5EdNadxSov4UTWsPMX1w XA0lJ0x RNQpHXimr4B0gYT7M6GnnkJ kwq7ny9cbGRZgSQnzT97xhI Cau7D3QCJvjZY1AHHbbPsaS iBzaG93 Oyc+TWKsrCdhx9QqJlesd9z uw0vjpAo4OrpbRYQrnpEjiR gbBMH0j4JlEi8lIJPydOI5b PM5gI0s XcVaCaZ1JMmoQ301AzXieRC hOifzX72tW8RdiXU+PHRyPj u7XYMriDsbJE1jS2IbQHKna mctbGVm cFkaRT6mYMFhhgswNOEpxK3 iMKFhS6a2JzZwKvQ2DBqeE7 MjCJOkbpfmVl37lF3nXmZzA oS0MSxo Z2JgdmM4TEYpuRSaVLkxMKF 5B16yp6A7RBFhZWFsSXI4fQ D3sX6zyWmwgqateRCggFyor mVydGlj ONcjYPtoG313PPTtmWarFsY vZGluZyBEYXRlOiAgMDYvMT QvMjAyMzwvdGQ+SQDgVZB8q WxlPSAn nMCkFIlxGs3rdZmucKfbGS5 tWPMrmnbjMJAwgC6wMAKpbD IlfInfQA1qLSNvorglu840S iAxMHB0 TWAcmIYjD5IilV8aPtSoKKG mMJZjE7GpxCVcUAlbP286GO hjAcB6TQVedwRtV8AwBOGek WduOiB0 a4H1Of1Rz9EmytmnE4FshBY pEeVrAqxwANj2H8GxKhjhcV I+RV68DUUmAR49TZx3PJO0k WxlPSdi ZYCeY3UatO0jFsPuADHeJYD kOyc+PHRhYmxlIHdpZHRoPS atUTKyNpXhdMzzHZ2xRm4zP GVyLWNv nPqotPLdMiIdk3nxEMXwBNm yGS0pqJslA0NtkCF2YCJlf1 r8Pb54M62tY2PjdCC+PGNvb AQ4qIU3 zY0gDyVuIfX0TJxyC742RsP kxFBkFahoc2uvn1uokIe6Ln X5VPUuplIezEyeEMG4d6EoX v22B12m IHdpZHRoPSIxNSUiIHZhbGl wzp9hyK9zCy9+NPQitFE7cS D0wQ9lDeZxBvQ2KAbnV232C nRvcCIv Lbsic6bdd1rieCc3IvGyEPK mbtOssHrjHZA0b1RfVi50E9 GjiFmqe7UsNwe2fx11nCIgi 6Y4vAL0 B2PoXTSomvoueAShfLpjRO8 hNGQkgqggGIKvyD2xHAMvH8 h2FxQnJqE8GYrnJ7NsurW2X GJvbGQg DVSrmWENyP0agawvp0dniie jLfJmJKLqCLd9PGm8BFTaxH trQdVeJPP8SmD8JYM6eDGhq V2ufMfd lqnjiT5uHkr+IRE4xDCxrUG WHQ0oXfzcjVC+YTVpPAL8mA ooVFaaBBIzrB3jLPRlE6g8T iAwLjA1 VSumG4MaxpH3TGThfRWvNXL vxXWTyR8ayzfbl0kwloscZq ZkGXSuDLi8IRg2CTKpdDncZ iBsZWZ0 VpD5MSL7uNIsvV7nrLszauz vzT7dGyn+GwimgKwuJBZ5YQ b4D1HrZhg0FTXoxLacJA8xv GFkZGlu Oo9goXkrfItlML5xJZEskcj qg911KaSrt4luFSXypGQlZJ ddXHQ2Y87xj6B6AFRwOZJeH EN3jKW2 iE4kzIxzdhrtqCRjcKohcfY lnVqsXVfdPQvuH228YBNtmQ ayHyHzIMx9E3KjBsj9NKXgj AddST9z cUEtLKxhGq7geBqxwHtcZW6 aBIWjdencg081DqRic4jrSN MjdJJfRSayLMH2V55lv3T0V CMwMDAw MFS1oIA9eG4lwPpwpbsoqGH mdDsgdmVydGljYWwtYWxpZ2 29FOOemCczTiEycTj4U6RfD zr3QRTd tDybVF8tqMXxTXlrRc2kcFu yeNwxDV8gYTZqkewir196Zc Mwa1dkFRLccIJeQZbvJUE0O 34ib9T4 DPGlQPAjLXP9lZW2fT2liZg nbjogbGVmdDsgdmVydGljYW glNJnmU677OLPyqTacFnYrt GllbnQg RSfaZMh8F8JiHnvscDP+PC9 4WKBqWM63pMAttHRnr9hpuP g0OjXdPEYoADP8cJaqXVkyy 3JkZXIt X71naEZfx8W2YWHppUatqNM cCiAvwBC5fH0fQAlbmcncb8 bbuzeePdldy5cnmn19aB30A 29sIHdp ZHRoPSIzMCUiIHZhbGlnbj0 hpY5xDy8+SCXzqGR6mIA7aU 4tGODpXxW2VYtoQ068XpQne CIvPjxj q0jrb1gzbPx4OeG2DXAqpwX eyKqyRGT1x3DbHk12J97mUZ dpZHRoPSIyMCUiIHZhbGlnb x7xeN6r Ii8+GNPjiUI7gMB8eT8iJdG iXaB2HXmkU107AmEiuEQrSu jcM09nH0AhqJU+HBSzEiy0F CBzdHls LI7jjNHcCFdaLe6oMMV7TzH zYoQhMVcvF0AqFSHlymwvid tshGZ8LASaBSCtsA28Eq4ct DogMTBw nMCTfI6vqbvvd9pdajoaJsH tLKLuBRq0VQj1FGWgcZgoVn UxJND3LjW4ZLJ1oPIwwM0vh Glnbjog jJ6mQ3NlXEApodiyXn84hV4 kMjKrErT5GDrmUtr+TUlMTE VSLCBTSEFXTkVMTEUgRTwvd GQ+PHRk AVG7eMmlYVazNCLeiF8lKSF yP8r9YiQaIpE6RVzsH3UpHF JhxuslZw40eC5kFkGsZeO5M VszD4Xe lnB9DUYczJKdQZmvPPR7P52 bv7M9JQYwPVAaQJY4dUF4vU 1hbGlnbjogbGVmdDsgdmVyd GljYWwt KJhyJ414KELrgSsbMiSuYdT mXnV5ADy9N0YbFsg6VZPspT pkPH2bfPNzGBsmYw5avKygo TlsGC2l RDQnsspsWYLnbS0oHJXnhXP kcWjnBL0mQWMsqivwl046Oe QvTBD0XYSwaKFpR6DpcM6dC iAjMDAw BXYuE3LcjZLfGDluH320KYh dNgW8SCJaetGmY8DkSDAozO bbNbF5g7W1Lw1nMFVQLGLmt zwvdGQ+ YFAdSSX3aAauMRinRDColV2 gEOUsU6w2MmUkOdU7QTltJ8 SvOAPjpcveEi10pN0zQbWxE nX8ZXoy U5UceqF8MVDibBTlFZqmIKZ 5J31ab5Y0SMRqZKZcZOH4oX U3lW5nvIjxbpbaqOMexOjgy mVydGlj ZUldBYzkA844PNIccEqbDiW FTUFMRTwvdGQ+ZBDnYKW1cU xxFWkmEJCmhV2sSBFjA1v7J iAwLjA1 SFvhY1EuVJCpgfmnOh94pX4 tTxKuRfP4VLcyD7WaprH6JH XxqVGoNPzgPIV0D83qs1Q4Z CMwMDAw QRC4nOX5fL3xsYppynogwSW mdDsgdmVydGljYWwtYWxpZ2 17YLDvnXbbWf4YQQ56NG63F 3RyPjwv dGFibGU+PHRhYmxlIHdpZHR rAXbpEUQkIiZknHtqJC6mBo 9yZGVyLWNvbGxhcHNlOiBjb 2xsYXBz DQqjJG6ozEnxL8EegET4BMZ rp2s0Wz00M22lM0DyoKA+PG IsfBS0oHY4tE7zLjYoIhO8J UjcM058 NkShiJFeXqrjg0lxc1lstWc 4EdEpEAJidzUbkIqzMTK8d5 EwXp65S80tKCgkOAIcVBZvV CUiIHZh cBlmqn9wqV9xGe3+PGNvbCB 2dFJ7aM6uQuKoYlB8MPnjH4 12QnHwpUViZudlB23yP6Elo XA+PHRy Sag1NBTkuJqyAX5nvCEoDLt dSq7iWLT4WbEnMiAlCHjvL8 JyDQHxolijavkwbIH1IEZlS DUwaW47 Dd6naGjbQn3fIFEsIUO2CWH lgDCjJ0GrbZ7vGsOtKHNzWJ FyX3PujDWhIAvmH836JTuzB vQ7JYLi ssHoS8XnVGWruKvbDxF7n0X 8Vk7GwNdojAZhQT6sXpUxVS r0E4IrTvk3VETtkZwwGK7xf GFkZGlu Qz9oqWlypAqxJG3qUEOgvel xf723WxCdt3ukSAPtvOPoUM enFEJ0H61do2N9RFPbAKXxJ WB9cHZ7 wY4bqQmzuqqhrBBgyUkobvW ctClwBYtdOUqzK547PLYcsW smOiIUFez8O7TiNff9GKTrq RofCH2e tNOkPGauXq7ebZisoWnlLN5 nEHIxyhwyt884BlWmx3xaLF GvyUCmTNkmYEM0O99vn5J2O CMwMDAw KAB8yJJ6yS7jaSqbyjbejED mdDsgdmVydGljYWwtYWxpZ2 98ZSShbYqzCg4ULnk6R0HyZ ce4QSYr yHqrKO2zyKPuUEgnXm7hoPj vjGmrDX7uYDUlpudhc509Dp Rxr8eeXTYvoPGpYYbtHZY2C 80hk7D8 MWXqZDPeIBC9bWX4iS8mlBb nbjogbGVmdDsgdmVydGljYW scNXynL391SXOkjOzlSxWfc WVyOjwv dGQ+DF87ab35N0KdMyhuPst 7MESmNZK8dDX1wH4rRIEzIP ihp0Z6aSN0I4ZwxeQlxl5bg 2xsYXBz ZTo (more content not included)... [facility] Consent Formson 07-16-2022 Consent Forms [id number] TGTIFF [facility] Abner 07-15-2022 L --- Specimen: [id number] Received: 07/15/22 Status: SALIMA Shonna Num: [id number] Spec Type: Surgical Subm Dr: Trevon Pruitt MD Tissues: A BREAST CORE NO CALCS (LT BREAST BX) Procedures: HE/3, Gross/Micro L4, CK5 6, ER, p63 Age/ Patient Sex Location Account Attending Physician SalasAriel Jesús 37/F [facility] [id number] Trevon Pruitt MD SPEC NUM: [id number] RECD: 07/15/22 STATUS: SALIMA KILPATRICK NUM: [id number] CRISTINA: 07/15/[address] [place] [address]: Trevon Pruitt MD ENTERED: 07/15/22 [facility] DR: Vitaly,Lab SPEC TYPE: Surgical DEPT: [facility] ORDERED: HE/3, Gross/Micro L4, CK5 6, ER, p63 ORDERED: HE/3, Gross/Micro L4, CK5 6, ER, p63 Pathological Diagnosis Breast, left, 6 o'clock, biopsy: - Benign fibrofatty breast tissue with fibrocystic changes, nonspecific chronic inflammation and associated proliferative change. - Negative for malignancy. Clinical Information N63.25 Gross Description Received in formalin labeled with the patient's name, number and left breast biopsy two samples are multiple fragments of yellow-white soft tissue, measuring in aggregate 0.7 x 0.4 x 0.2 cm. Entirely submitted in one cassette labeled A1. Time of excision: 8:35 AM 07/15/2022, time in formalin: 8:35 AM 07/15/2022, time out of formalin: 6 PM 07/15/2022. Cold Ischemia and Fixation Time meets the requirements specified in the latest version of the ASCO/CAP guidelines: Yes. Cold Ischemic Time: 0 Formalin Fixation Time: 9.42 Specimen: [id number] Received: 07/15/22 Status: SALIMA Kilpatrick Num: [id number] Spec Type: Surgical Subm Dr: Trevon Pruitt MD Tissues: A BREAST CORE NO CALCS (LT BREAST BX) Procedures: HE/3, Gross/Micro L4, CK5 6, ER, p63 Patient: Ariel Salas [id number] (Continued) Specimen: [id number] Received: 07/15/22 (Continued) Signed (signature on file) Mary Jeffers MD 07/17/22 1057 Specimen: [id number] Received: 07/15/22 Status: SALIMA Kilpatrick Num: [id number] Spec Type: Surgical Subm Dr: Trevon Pruitt MD Tissues: A BREAST CORE NO CALCS (LT BREAST BX) Procedures: HE/3, Gross/Micro L4, CK5 6, ER, p63 Patient: Ariel Salas [id number] (Continued) Specimen: [id number] Received: 07/15/22 (Continued) Microscopic Description Two H E slides reviewed. The microscopic examination confirms the diagnosis. Immunostains for ER p53 and cytokeratin 5/6 are performed with adequate controls immunohistochemical and microscopic patents confirms the above diagnosis. Intradepartmental consultation with a second pathologist (JERRI) who agrees with the diagnosis. CPT Codes 44537, 74445, 36967o8 Specimen: [id number] Received: 07/15/22 Status: SALIMA Kilpatrick Num: [id number] Spec Type: Surgical Subm Dr: Trevon Pruitt MD Tissues: A BREAST CORE NO CALCS (LT BREAST BX) Procedures: HE/3, Gross/Micro L4, CK5 6, ER, p63 Patient: Ariel Salas [id number] (Continued) Signed (signature on file) Mary Jeffers MD 07/17/22 1057 [facility] MA Mammogram Diagnostic Left .on 07-15-2022 MA Mammogram Diagnostic Left. Full field CC, MLO, and ML digital mammograms were obtained of the left breast shortly following an ultrasound-guided left breast biopsy performed by Dr. Pruitt. A biopsy marking clip is noted in expected position at the biopsy site inferior left breast at a posterior depth. Final Signed (Electronic Signature): Fam Worthy MD 07/17/22 10:29 a Technologist: EM Assessment: Post procedure mammograms for marker placement Recommendation: No recommendation required [facility] Comment on above: Order Comment: Check clip placement Outside Recordson 07-15-2022 Outside Records [id number] OTGTIFF [facility] US Breast Biopsy Loc [facility] 07-15-2022 US Breast Biopsy Loc [facility] Les Left breast ultrasound was performed during Dr. Pruitt's left breast biopsy. Please see Dr. Pruitt's surgical notes for completeness. Final Signed (Electronic Signature): Fam Worthy MD 07/17/22 10:30 a Technologist: [facility] Comment on above: Order Comment: Breas t mass at 6 o'clock position left breast Coding Summaryon 07-10-2022 Coding Summary HTMLBase 64 FwibjzgyVOq9lXt+PGhlYWQ +AK9TEPQyL55pfCObtD5qD5 NMTElOSywgQVBQTElOSyIgb eIcQB4bwHYqUMPh IC8+FU3yAODpBjzbnNPev6P 3yLM1B24efv6gWAfbhRS0UC ItQoQjiljtu2gpcCj8RIgqV mluOyBt XEOvuG23UXC8jC32Ij72aBI omDXjo8muhUh8IeEaNBKhWR H2mAncGYybj7FiQRPnN51mz EGpw4I2 DCArvOrsgCIiAdLzhAK2qI6 wJCtsdgbmb4dtlxbmNfg1ai 43rWGuv9M8bCY6E7SyspG6G GJvbGQg OmmluLLMmW1fuhbid3trelh pLaGgCSQcLKg7XMp1LZSilM gcGnWuXG17ZKW2WJQalcIjE 2FsLWFs dMmbFlC9b6C8Ch0MG5DFCdl zO4MGOGQCFOetlUJ+PC90cj 70J6LkRyylAdx4VUBqCEZ8n VJ4pI3t XDFlDRohc4O6pVP3W4BaoaR hfg3kn0qyIDOxGHrnI68kqC Xxg1E8ZODrxQI7NCToaPadG iBzaG93 Oyc+TUGnlQkez2WaWznoh0b lb4uegIi9QiexYKIujqImpA uyRXX3a2QpXn4rTFYvcMR0t BE3dC6n QbGbZzT9NNpuM166MrGpvJP uAkitU84eB4LjyUR+PHRyPj r5QGFzfIhmDD0hP9BiUXYwp mctbGVm rMlmWZ6hPOUheagoVAJubA0 mOVKwL1g5EeIwBvN9PDndZ9 MsEZArjbfzTx64yX5aRoEjV aH2HNbj L4OzbmV1UUFegQTkADclVGA 6B93do2S4KWUzZIUaTAE7rZ R1mX6liEslxkrvjGDpmRwbe mVydGlj ITlhUIsoF034JLBpyHpwMoN vZGluZyBEYXRlOiAgMDYvMD IvMjAyMzwvdGQ+AKOnDTX5c WxlPSAn qMJeEZefMm4rcAkeyUsfDI6 cBLBxkrtvAQKacT8xAIOerD CgqMngCQ8cKRKfnncah546R iAxMHB0 JDZidXEqP3MzrN6cPuDgGAV vFXKyP0SaaXQyGDczT391VH igRuA0DHOhlfFqZ1TtLOXsa WduOiB0 o5U1Ic2Qv4ZqyznkW8AlkGY bEaLaMnnvTWb9X5KyNgnsdM I+DF55AGDdQB98PBf2JBP9p WxlPSdi PKAzQ2KjuX6fYfQmSGYlVHX kOyc+PHRhYmxlIHdpZHRoPS qzNFKyNeLkrMssMQ8mAi4wM GVyLWNv bRclpQYmKrFfs3ryJKOuIWj bSW4wtEfqZ5JezXR5MKGzi9 t6Pw07W53cE8CcqCS+PGNvb GA9wNN7 xV6iNdRqKbS7WLfxC272UmK avKCxOcxqe0pqq5vkmWv4Tb B5DUKcugNfsKlfPMA9z8XpX q42V30p IHdpZHRoPSIxNSUiIHZhbGl kvq6knA1dZe2+QSJtqUP9mN I6fC3iAkJgReA6GJceS365M nRvcCIv Ryioo2xds5rqcTi6DoLhJBL cqwCvlXqdUFI4d4HuNq82T8 NfwEnhx1BdGsx9uh87hXJll 1P7eGI8 L9ZiRMVrhazxbLQcfNhkKG3 mSNNxucjvNNRmnF7vUBOfU0 r6HqWbNtJ8IWbkT8AnqrT5B GJvbGQg KPTlkDEMzL3gdlujx2qqcsg bHlFbGENvOKl6WUo6VPRwdG ieHiJuNIB3ZlX8ZRB9uDAws T6uuExq urmqeN1qKlh+XZT8rTCltOP KNF7cIggixKZ+DPYqJQF6cP ypLMamNYBybS9wNBBlW7e6P iAwLjA1 FGojJ2OzarP2GXLzePAwIIM bdYKKiL1eisewm1rrrzdrPl AcNQTyRMq6SHc6NFWcaTzwF iBsZWZ0 RiW6HUV9jQVwuU4mvYrxtxo rgO0mBln+GjpoaAxsBFR0TF q7S1CjLhl6SIAwtIamVL1zq GFkZGlu Ql5wfBblpXocSC3vQCOswza pu297HyIth1ycCXPlxZUkTZ ycXJB2E14qs1D7UMYzOJGlX CM8sEL1 fC2ojSwhrxbllRUxmEugavP grMcdORbtOWhrX089BSOfiU wiGaLsSFx3D8CvAdg4PFMlj VisBG6p aBXrMFcjSt5uiDguqZfwMG9 nYWTuasozp222HcJnv1dsZI ZyqTFwISstYES2M43dp6G5H CMwMDAw YYE4iBA3mV7trBofgovbjWC mdDsgdmVydGljYWwtYWxpZ2 68SNTpxGifFbPagEq6F9SnO xn2HGCl rBxsHX9nmFBfNLfiIe9agAw guRgmEL3iIHDcvtyag128El Kds3mpZZEwrACiKOssHMT2U 61xa6I0 QHMjNFGlPJP8hCD6iU8dnRj nbjogbGVmdDsgdmVydGljYW ewGQsyV987QZZywGviWoInv GllbnQg CFmpBKc4N8GgEenvpMU+PC9 1VCUuRK84qZJxcRKpq9rfjN i9MhVgXSKsSTX5sVzkKAszc 3JkZXIt B17xmMSeh8E4EIGphRlsyQR dUjLdmNS6tG8vSLgffdmwt0 irumgmOxshy1bhrq46wS91I 29sIHdp ZHRoPSIzMCUiIHZhbGlnbj0 ntF4tPs8+NMZneDA4xNH9xB 6aBGUoEfH5HHlxG103VxYbr CIvPjxj l4efb7cotEy2EkI1CSRkhzK plAtoBOB7d8QbPv17B44vBT dpZHRoPSIyMCUiIHZhbGlnb c1rsO3m Ii8+HGIrxKY8zGB2dQ9wLpP gDqL8WFycX612UkTbyHXpFn otO08eP3QgkTN+INTjVza9T CBzdHls HW1udOBwNKhpTa1vLRI1OdK wBqKsPCzzY3SrYCXizqnawz ohmGY8HCIxEYVkpQ23Ew5st DogMTBw yQGRdU2pyzqzh2irhyzqTsA nBYTyAMu0SMd3LWFpeKohTa DkICB2JtP5UJF9zHXbtE8fu Glnbjog hK8gE1IlVYUaeqfzPv37mV0 uQnHfZuE9WJztHmm+TUlMTE VSLCBTSEFXTkVMTEUgRTwvd GQ+PHRk HGO7kDneNGmlSDUdqY7kTVG mC0g3PjAeSeI7ZPslX8LpHW AxdnmxCb61iO7yMfBlZiJ2Z MllA7Wb sbH1MVWppXWoWYxcZSV0I13 ly1P0AKBeJBAiJVC0hMN8xC 1hbGlnbjogbGVmdDsgdmVyd GljYWwt DJzpU208AXVarEmiUcNwGdN xSaC7PKd4Y2VcKiz3NXVylT hfWF5xsSVtPNtvEb7rjDmat LqcLH0w XDJckduwABEjaP9sUSWdbOC kcFldEC1zVBIshnkod948Ks CvYOG6RTYcfVFvR3VmtH7jB iAjMDAw OLGpI8LgyZTzEHeeZ013DFw iAjI1QVEhpuMbA2PfUFPhcM tsNqY4o1H6Am1sLZJMDAAyn zwvdGQ+ MRTcBDN0rZecGGqkHXVbnW6 aGRFjM3u9BbTwAbA3NCveN2 NeIHWoiouuIm73hJ9kRrIhB lD7IOwu C2BqutB3IVQhfOQgHOsnHBF 6I22tn8A0EAXuMEOdKVP9eG K5sF0xjXzpmnxecOTivJogf mVydGlj OSpgCYcdC830GMZamJayJjP FTUFMRTwvdGQ+BXKlOYK3aC cuFYblDWHeiD7gRIWvO6n3M iAwLjA1 JMghM7AlBWIbniwpUy96lN0 uYwXbUsN5QYlgC9ZraqZ3CY MgtYYhEAfeZSR2V50gs2N6X CMwMDAw FME5oMM4jV0lxQodtzlwnUX mdDsgdmVydGljYWwtYWxpZ2 06QYSavQtoEo6UOJ29QG02L 3RyPjwv dGFibGU+PHRhYmxlIHdpZHR wYDezZBXdDnUvyQmxFT8aLe 9yZGVyLWNvbGxhcHNlOiBjb 2xsYXBz WAuoYZ8piZawP4EwdDO2BYE wp6j5Ma46I78yI3IczLX+PG OniIJ6iSM9mS8xQiGaQrT2Q BigR851 YeKkoHAtSjytt2btr6gkeXy 2JgNvSFPxipEucRzbHRT0u3 RoIl80L35fDDynHEQuBLEkE CUiIHZh aHlxnd6axF5ySr7+PGNvbCB 7dZL1vA8yDlRxWbB7DLnbA6 68MsIkzGBpIowtT94nY5Jqf XA+PHRy Tde9TINkbFckBY1hhMMgEKj lTg5lDIA3GcLpRmIdFPogB9 JjESHfhdrjnubnpPO6XZLtL DUwaW47 Fs6riHyjNw6fJKRkOZT3YFA xbMKtG0AslK6eVkBfRPRzFO BsN8WlcKHeTCukI865UVdgH xL0OKGb tfBjD5FmZNHzrSixAxL8f3J 8Nu2JlRhmfZMuKV6gRcFaLD i4E2AhJyu5QXNhxGlpUE4uy GFkZGlu Kn2qlDnyuIwtYW0uMCBbuuy bo944DaMra4coYVAwwPOsDM izUCG2S74uc4B8MHRwOKBsT MD0cXM8 iM9jwKyunuzvvDGbnLjxttC hjUhsUJmnQFckQ364FXSaiK bbPcNOKgh6G1PyIfh3ENWrv YawXY6e hAEqDXlfWq1xuUztiUgeVR9 oYERijvtlg161ErJvj8pfUH ErpOPhUTpxQSW8K63uq8I2L CMwMDAw WIA0uOF6eR5yfDifazhndXU mdDsgdmVydGljYWwtYWxpZ2 13JFNkfHymZn9KWcv6F4FoJ ak1EAWf kWzcVS1hgEDlMHmdYo7qvVr emImfMI7sTOAdqxfrm870Wx Kal5xpNAQdzDRyEVbaVOC6Y 65th6E1 QRJbXLNaJMJ4kXG8yN4myQk nbjogbGVmdDsgdmVydGljYW iyPBasO015ZJLzyDpzFaUpv WVyOjwv dGQ+DV53ds51T2NlVegoEna 8IIBePOK2cJN4tA6dZGMrTZ irj1C6mEL3J9VqfeEhsd6qb 2xsYXBz ZTo (more content not included)... [facility] Coding Summaryon 07-02-2022 Coding Summary HTMLBase 64 FvvwqnhlGPp4rKw+PGhlYWQ +NR2OEJDhD58zoYMdrW2dT1 NMTElOSywgQVBQTElOSyIgb yCgTA9beGZeNNIl IC8+IR4yCBLhNvyyfDOcc9K 0bQE4O32qsz7oWMieoDL5TY OjGvFcepcjp2vnnFc4YHkvY mluOyBt QQXarJ41KYG2uK70Kb62gKH nmPTpy3zmxTj8ShAjWCDmMF E6nTjoSOejq8VrLLOzV06sw HWnu9R6 YVYvcDrshGClSmGiiSY8eB3 jWJgpxsiwn0mwamsrEfq1np 35wIQag1W3fLB2V3NguaN1H GJvbGQg FmauhSJMwS8fvjlix4ykzbo sNaOpUINqCFd2VRn4SMMbgE kwIfJkEH68AWY7IJEytiWaT 2FsLWFs kYsfUrC5p9V6Ui6MC8RKSuq hE0NUKYRXBQlnvLX+PC90cj 91C9CzKnbrTva4BDZpQOT6m EN1pI1a IDRgCScqp6M4zTZ4L7EvlrN ixu4ey3xkNBZdLSizU92tkT Cdb5F3LWXzeOT2LZDcyOjeV iBzaG93 Oyc+UMHhiSemd2IdBtdyz8c oa2vbiKk9LcqlLWSdcaXhaU nfESA3s7NwWj0oUVCvtIR2v VB2lW3c NxXqGlT4FUekA235DhOxeVE yQzebH11mE3DweDY+PHRyPj j3TDRhxYygCS1iK8EiBOUbv mctbGVm uFwaKO4kUZCzwqdsRLNniC8 qLZKeR0j7OfTjIiS3DWzpL1 FxVRGhzfkyNb64rI7hEoXjJ fJ9KFgt F5JcqsG7LSBpcHPqIObvHUX 1M84lr3W1QFIlYCXxXDG4dY X3yC5wzGwrqhuayCNltOghs mVydGlj WYsrFQfzL230SOTaySloSxD vZGluZyBEYXRlOiAgMDUvMj UvMjAyMzwvdGQ+IOGaLQJ4k WxlPSAn cMRsZFsrGm4hzCxjrTgxZN4 uLAZmlgcgUPEfdO4lDDAqoS JmzFshLG8tRTHwzvqga303D iAxMHB0 SBNduZNsM1DpkB3wEqDvGLY qVQBlZ1ZbwVGuLRbqZ455FA clRlO2UNEcanJaH0TqVNUnt WduOiB0 b7U0Gi5Fy7AgbkwgQ7UbvJC cAoAcCwbqTWk9Z6MtQbpuwK I+BO59DORqPB51HXu7WIQ9s WxlPSdi NKRfJ7QjpK9vGnOkGTYxBVT kOyc+PHRhYmxlIHdpZHRoPS sdTHTlIaTwyPwjSZ4bAi2fT GVyLWNv dOxflVJyGzIna0aaCXLxHDt sXK8jmXvgX1KorUE8QJAcl0 o0Aj03L56gU4UymAU+PGNvb WB9hUC9 aB4dUuPdEwK2TMlrB716WrH rwCEvShbfn6uwf8qgeCc6Tb U2CYPbfyWlcYsjWQW0s1BxG i08N20h IHdpZHRoPSIxNSUiIHZhbGl qqv8dsW9tId3+RVWbsAX6qQ Y2eO1yYwYyGdV3EAuhS071B nRvcCIv Rqytn7ifu9gqsWa6BxSfMJJ jqxZddUwyKFQ5v0ZhOn13Q4 ZjoHjps6OcNzg1rz95iCTzd 3T0uOF7 O8UfLXZnngxiuLJdmWeoWU5 fLARjjoewNABjiL0mUGFnG3 l3NiFuKnA4YHfjL8QyteJ0G GJvbGQg POSxqCQNpO1vvaxcv3knnpv sIxCoZFUwIYa4GFl1RWLjnJ amEbRfJZW3ZqY2RNN1xHQok Y7ynZil oerjnJ2cLpt+UVA6yBLdkJT JAC7dHawpoKV+ATJmFWK2zD xaYGhjUGDxmG5lPGFkH5p0Y iAwLjA1 LDpeD3FggsD1VIXykQXcRBZ wrGLSvZ5eumjfi1korhhhXl BjHNBqUGh2ILo7KHKubJzeV iBsZWZ0 KtI0EGX7bWUwaF4syMmfegf gbI2bCdn+GiuzoWivXMC3VG w2S1TiDam5NDErrGgpJO8qw GFkZGlu Dj3keTwupMhdFO8cKTTcmur dn797ChYgf9pnMHMlvENjKY dxBUG0C54vi8A2JNFxOWRcU MC6jOY5 zB9coQtechpttGUyxLhplhK ijDleDXxaCKteE254FVVqmB hfBzTqKWr2H1InFsm9YPSlm KroDD4u gMDlYIwwCp8kqNdlhNzaGW1 rQNVonvfll923GbNph7hdWY BlzWKoQVtfQMU3D84yx8R4Q CMwMDAw ACK7rFO9eD8kgYnfwqdzeDD mdDsgdmVydGljYWwtYWxpZ2 70REPzcXhjJoMibFk6K2LpG ya6ZTOr oKazEK7azAOxVPrkVa9wvSq ooGcsVH8hCOPrpdbah215Gf Iqs0euBWQazTOfTMvkBIZ5K 33tx8S7 FDZfQWPsHAK0hMC9eQ9ppVs nbjogbGVmdDsgdmVydGljYW yiOUliL452XUZeoTdcWoEst GllbnQg AXakDAh4I1FgUynktAM+PC9 4AEEcAK66lSEvnWUws4eruZ z2BgKeBIZtHLD1fLtkOIruf 3JkZXIt N35alSAnc4R9EZNreZufdLW oKjIgmTT7uN2uKBkqcvpks2 qlqilvYqyur5rpaw47pC74G 29sIHdp ZHRoPSIzMCUiIHZhbGlnbj0 hmK0zPu3+BSBlrNM1oYO8pL 9uYZCdQmY2JGcpT844UeXef CIvPjxj w1kqp7indXu7KaH8FYDadpV qgVmlLIX2r4PaTp13P27jVQ dpZHRoPSIyMCUiIHZhbGlnb s3irX9t Ii8+GJOavSF6dIQ1pU8wSkQ qObA7TIazN376AoHaiWYcUl hyO56nO2TdfZB+LZSsLbw3T CBzdHls HC3gvGFdLFhmMz5aXQI7YfE tErUtHDexL5MtRGAghedxpi jlwIJ2KWNnTXZkdD09Wp9iz DogMTBw lBSXdD1vidhjf6jrrwdhZyF rKNUhDIx0JQk7HRWhnVgyYv EbQKM2QgN1XWL8pAPznQ1sf Glnbjog dS2tT3FlWHLtxcbjSz62eL8 gBnOaPpI2RXmyJvt+TUlMTE VSLCBTSEFXTkVMTEUgRTwvd GQ+PHRk DSK4gLfeLDptUYSpaT8sDQY aF7c8EdXiKtX9WZwcX3WtCS KlslneNq12aW0yXeAvVlL0A LkuI1Wr ryZ1WMUnyHXhOOkaKWZ6W71 xx9Y7PKHpKHCjGUQ4iWO2gN 1hbGlnbjogbGVmdDsgdmVyd GljYWwt BUkcX800CXFoxEmlShRsFfY dAcB5YQl6E2NaIxq5MMTzaT gmBO9ywDGkZXhgZh0stYbyr IluZW6l UOMffrysAZTqqR8zTCSlsDE glIuoJO4yANNtabwzq117Vf GpOLG1FBWpnITjE2NtuC2yS iAjMDAw QGVvO8IwwAXdWQktL979OXg qFxZ1FBCzubAfD4JiDWHhlP tgPzJ6o9S8Yj2dAKOFYZYlg zwvdGQ+ WIBmNPS4bKfzXKbgAAWmgN3 sGLZfU6o4GpUvOxZ5TAhbI8 CwUJMbjjrlMt98xT1gXkPrJ lV4RYfc J5UhrrR3FJVkaWUzMTznVXS 0M18ao6Z0PXEpZVGgSCC2eC K7oQ7ayIxkwfzbaPTrlSdcq mVydGlj UTyqYDrqT710BUDviUvsCgB FTUFMRTwvdGQ+NETmZDP4cS jnAYxeGJEwdQ9vZUFxT5q8S iAwLjA1 XIxrY2FtSCQbsllkKh54dW6 rBuCqQuS0WPfyD7RtpsN6ZB ArrBMzJAfkOAF9D95uy1V9S CMwMDAw ZDJ0fNB0mL4hbGuxhjwlqMF mdDsgdmVydGljYWwtYWxpZ2 03AHVmyQsbQv7GLW42FP42P 3RyPjwv dGFibGU+PHRhYmxlIHdpZHR dVUeoTTQiQpYxoAvfMR6lHj 9yZGVyLWNvbGxhcHNlOiBjb 2xsYXBz KSraSG4irHigK4NioOG3MQM uh5s0Wb32C00pL0QfdZV+PG HadGW6rEX6yE0mCdYfFkX9C XsqM646 VkProCSeIjarg4vvb5gxzDk 4BoPrERJftbJbnTvlFAT6w1 QbAp49A29hPKjtWFHbLPCoF CUiIHZh sHkgfb1saE9tLi1+PGNvbCB 5jWY2vT3sYiArSsI3CPzvS3 46IuYdnAGiZtyqO22cV3Tbh XA+PHRy Ueq9BKDbjAanJG2fiWIsXIi uCk7jJRC5QnMoUkTdJJskL8 EaXDSqiyhzsrplsWF4XCGiY DUwaW47 Uy6dzUzgSw0mRRJaDKK4DQG ftDVpI0WwbS0zIaRgHDRrDN RdM2JshKZfKKqdZ738KOjtD fA3PCRz guObH2VpXRDupLytZnN2v7I 0Vh7BqQequABaRJ7sOzOsNN o4J6FoNxc0MCYvdHjbSJ6up GFkZGlu Gp6emTdceKxoRZ1jGFHwzon hr255XbTbl9lvYGNnqJEpIU zdJFN8B14np2I6BEOwYKLfU GA3wMF4 nL1mgNvergahjJJkyWrxvjJ xnXccXKesEQbtW878LNFdjA zcDfJUDcm9E7NoZfh7EVQzm OuiFR9p mFGnZTgxYy4vwIfcfXahKL1 tNUVxkavwr494OzYcd6peQO XttRExDBqjMOO3M55wf7U0Q CMwMDAw IYZ2fLY7rG4cdMenimjfnTL mdDsgdmVydGljYWwtYWxpZ2 60SLAtaQhaBh8XWlz1U8WmD yj0PYRj kPmlBI7kpDGgOLbhWn1qrIs ywRmdZY3mIEFwvtzqn965Jm Bvr9iuYNVqfNXvAXvjXXK2K 27kw5N0 HBQgVSKyCDD9zOO3oO6vpGr nbjogbGVmdDsgdmVydGljYW xaYLczP276WQBppXjbCfPpi WVyOjwv dGQ+NG43tc96X3VgIkljWuq 5MLQxOEA6vXJ1rA8wNPCwPK vtl5W9tPC2X7UfdgYgqc9pi 2xsYXBz ZTo (more content not included)... [facility] Coding Summaryon 06-30-2022 Coding Summary HTMLBase 64 BhizbuijNDo2uVv+PGhlYWQ +ZE3DBHTjQ67avQYmjY8cH0 NMTElOSywgQVBQTElOSyIgb qVzVF4rwWDcDXCz IC8+HK5jCTBtGfpffFLcd7V 2sPR1K88ehi9rGPfvsKH8XA XaYcZbccxuq4nwvQf1GWcyP mluOyBt TCQgwI45QJJ9sS05Hm14fQC yqBOth4swrSt6BqTxDDLmXM R9wWseUKdua8ZsTDBxO51gy JHde0B5 XFHdcKtovISaFlYjqMR9jV0 jLFnuppqmk6yxruemMfa7fo 80sPSiy7S6cJB3V3AgbrY5D GJvbGQg GjpiyKYGiT0tdmedj2qxyoj zUiNzFVSfCJi3OYq2QJGheX teIhFiZC48LWG0HZIefeGjI 2FsLWFs uHvkSaP5m8C0Vd9WW8GSVuz nI1AGPCQBMXxgvTW+PC90cj 62M5RmSnocSki8YRWcLJN7f OC6xX0q YSIkNSswe9Y4lHQ9N8QrinA oyz2ss0rxUHUfFBboT92djD Egn6I3ZLQdhBS0MWXzkEpsW iBzaG93 Oyc+IRJzsDxfm6TrBvpwy3e tz9mvtMc4BvswYBJtbxLarU goMRI3n2CwIt5fVIKffMN6w SP7wF8y WxWxYyP3EHaeO218TmVkzWD eBurcA92gI9HuqPY+PHRyPj k0WZTpzJwmAB9yL9WwBESfv mctbGVm zBxaOT8xLMBfwynfXITxnZ7 xJVDyO0u1HeEtAnE1DZxxW7 JyGBSbctiaFp09lZ6uLdLvC zR1JLbp W9AqekW8GYBvtIHlLLrdVCF 7Y35un0N1LWTnBTZeFXJ6sH J2hC4mzGehyxxpjCLntCuvp mVydGlj QVsqPXnoP297TIOleBztDjN vZGluZyBEYXRlOiAgMDUvMj MvMjAyMzwvdGQ+GBJbDRE2p WxlPSAn cXIaPEfgYp5nzBthmCvxBC3 zKWZtvfjfAISraW4pCXEvxF HniJfkTY3lFPZurlhse599E iAxMHB0 VRKrxAOdP6RaaD5hHzYkCWG zJAYoU7McfFJqPWvhW350TY chYhU4ZWGhfuWaV0RiHMHaf WduOiB0 x8D2Zd9Hf7KsbiszA7BpuEY bXwXrFpawKGf4K0WvIeombX I+IX21BBQfCX17RDk5KKD1g WxlPSdi PZNjG2CuoW2uFzZiLXKhZVZ kOyc+PHRhYmxlIHdpZHRoPS bdPXCjFxPkcQhwFL1jXj9mG GVyLWNv gJmpuLMzDjNep3iyXVKvJQv kND5msGorP1PtmEW2OUCdy2 e6Lr60N76vU3YwaHO+PGNvb ST0aAA5 tC6tRwKuAaW9MConJ631WjF hqDXdOqosl2yau7ubsLw2Uq N8FWQlwiWkdNytPZA4m3XxD k41U48o IHdpZHRoPSIxNSUiIHZhbGl rjy6seN0hYd1+JCZdkOQ9mB Z0vX1cZdMgEtU2TZwpH954Y nRvcCIv Hjxvq2qgt7rduYz2HwDhHGN phpYttNehGQC5y1KkMb42H3 OfdZxin9YkRuv9mn12nFUge 6D2wIQ8 M6LhBADrfjcntLUosXcxLP9 zAANjogxzHEBeyJ7xWKKfE7 n5FzVgGnU7PGrlN5OkjtI6J GJvbGQg GHBkqAYDiD8dmkltl8exvtl gBeNfCSFlLAi1DOj6LCQnfV cvYsVeXBM1ZeB6EJK3rJIsn O8ajWda rxoklJ2sIqd+BCK0vIWgoBN XLE0gQujhoQL+UBZkHSC0vD ztLZucIVQzhN9gYHYyK4d9Y iAwLjA1 KOedL0YgbwV8HBYnqLJsGIW btETQdL3lnvegg8sgakjsTz ToHERiUDr7QXl7LWYzoMklZ iBsZWZ0 WnM1PIB1mGRljH5yzHgjwzc uhB5wCto+CbirnSriHLL0AJ t1O6SpFub9KJKmiZmyRK3vw GFkZGlu Sy5tlIeblAscTB4jQCMdwgo ia710RxUuw6pvNIMofWJqQL csIPK3V69ga5N8PUFlJQQnO KW5mYN0 tD4jwBluplocgWQgxSwmexC nwSicWDivSQwsS827YEAnfM bxUdLjHRm8N9AbZpo6VLYcw BovQO3j vHGbUKqgLa1uxEpqyMryMO3 tEWBmsopas929VpVvj7dwUV WomKRcHHnaMTV7R25gu3K0T CMwMDAw MDX4pHW4wY5rcXwbfcjofPI mdDsgdmVydGljYWwtYWxpZ2 57ZVOjvXoePrKcmKl1O8ExG cr4DYQr dMrsTL5ggIAzCZezZf5plTa lxQcvPA1qMDIpnsbtw634Lb Xzv2efIQDlpFZrCGliGTU2O 05tf1G8 LSTjYYUjNZI9nDT2iQ6dnMr nbjogbGVmdDsgdmVydGljYW bjLEhrF937UXUwfIbvDpLyo GllbnQg WPklVHs9O4YePtwgcVP+PC9 6STZwJS93eQMyzYOzh7vvlF v7WhMwMANbVSL7cKyxPZiyu 3JkZXIt Y84noUOln9R5MFQbrDsvtZL rKkOpoKC6rH5nESdkjaqpt3 bdzkumRpslw0jiuh77wG84F 29sIHdp ZHRoPSIzMCUiIHZhbGlnbj0 zyJ0iPs9+BYBwdVW3iIS8wL 0sGFMsCgV4TZwiW514QoZjc CIvPjxj m1mlk9sqbHy5GxE9HHRruuS xsFybTVR3d9AeQv76E57aLX dpZHRoPSIyMCUiIHZhbGlnb d1ebQ2w Ii8+NOWinDV3yRS4zX6lPtK dTqM5JGatY546JkAmyVYhGd pvV13yU2OmdMK+LKNtUpd3D CBzdHls OU3jwLCyDGeoLr9tKBO4BqH jDtYpDEftD1HlHTHslgvtck spsDE5ZXKfFKVftF73Dy4kq DogMTBw kEQYoT7mamjam9gnfwnmFkW gZBAhISd7FAi5NJAnrZaqEb OmWPR3NxT2MSY2lFFngO4ux Glnbjog vV3oQ8RbFDVjkyjvQa81aO4 vVrTeBkW3TWlpWfp+TUlMTE VSLCBTSEFXTkVMTEUgRTwvd GQ+PHRk PPC7lEguAWjcQRCanM7dOPM rK5g7ItCkOqB4VKbdG5NtDW FsbdhcBy60gA6pHwXaPlF0O XpkS7Kh mmB0WHPqgJVgRJjrMDP6V81 vk9U2DUKuGUGcQMT3cUS1gF 1hbGlnbjogbGVmdDsgdmVyd GljYWwt PAraB261FFJbaDcfGjMkKgZ kSeK6UAv1W1FfRws9OXPokS dpQJ7grDZfGDrnAw8lkXyit RnsRE3y JDVobtyzBMWknY0fATKhjZT jhEkrZR1kJAVlgwash783Xr ZxUCO4UDLxsKIgP6YngS7kV iAjMDAw YKJoO5JvjMLdIUeiP771LMf aBoS9PRHoouTbH6FcHMTcoA icVyS5g8S5In6qEXIJFJXgm zwvdGQ+ ZKMaZPU4bYkzGGyuEKWlkE4 aVYRkS2k5NjZvXoS2VQabM4 VwBGPjjqfwEv72jF0zZaBzA qY1QXtk B8PoelB4IOOasGPtIQweDVB 8E58hp0C8MKQvRJTuDGY6mA Q8fO5ooJjbcjpqaYUjgBcjj mVydGlj AAmuBTlkY886CSYbcMvfYxV FTUFMRTwvdGQ+FKMnUJA6aW hfDAhoZRHfrR8xJYVhN5o7X iAwLjA1 LDtoT6YrFADzoszlRr36nZ1 tOpZlXqO6XIssZ4ZaqxP6KA OjmZWlCRhyCOE1B64jx6W5I CMwMDAw OUO0uWH9hC7cgOpwbjudxEJ mdDsgdmVydGljYWwtYWxpZ2 84CXZniExfYj0NZY17BN97V 3RyPjwv dGFibGU+PHRhYmxlIHdpZHR rSPyqNIOsAyJfhVxgUY8wTn 9yZGVyLWNvbGxhcHNlOiBjb 2xsYXBz ATcbUY9fjInuL2SqmQE2VTJ bt7j5Zc73T15wM4EohZD+PG XxrIL7vHF0nE1eGbHiWoK3B ZwgO026 AcTolNQmTggsu1nqo4lquYj 0MiDsTBSypgCecYuoBQV8n2 MtUp98M05zOUmlUIImWYTjI CUiIHZh bFrhig6dgN3mQo4+PGNvbCB 6xPP9vE6xBrUnZxW7WEofG8 79TwNeqIFzBelbS18qY2Myv XA+PHRy Qrf9UYWwxXqsGJ4ymHMeGNd nQe5zIYU3PtDyZaPtDEwlP5 FyMQJlqzzjdlsqyDX6TXGzJ DUwaW47 Ng7kbKmyZf9kSEVkKCS3YZX maWTfH6ZrjZ0lHhKaSRHsFZ JjI4LbiCMkEGpfA348CNbrH dI5BATe jiIrM9GzZPCabHmjFoB8d9U 4Lj1GkYliiTHaQA6vCnSfRG p2M1LaFwm3SUCcnWdbLC6oh GFkZGlu Pp3euEguyWhpHM3xTGVmlmx mu645UzPfa7rkQQFltWUpRZ jhWOC8C30jg9F9TSXeYTYtM PQ2gWC4 fE2puNqfzjryrQLgyHtaxmM ovCadILeeDDdoQ395FICwrM zdItFCUuv7F3YjIpm9YTHpz UnmSX7k sBHiQQvuQc3auUqxwEleQP7 qCUBmxugfa009TnOta4enZE QqmCXvSCnyFHN5J07te1I5I CMwMDAw VYV3dGM8bT8deNcssptjsGJ mdDsgdmVydGljYWwtYWxpZ2 73LALtkRzhKb7FAeh9X9LlS yr5GGQi cOzrGL0naTDgMHylSu1pzHu alUduUW5iMGVhrjqqo224Eu Dfj9ifSIIwzKOyPLdeDNZ9P 98ts9J4 LAReWVDaPWF2iKW5lT1ooLz nbjogbGVmdDsgdmVydGljYW kqMZkyB049BAImkKcpJbWlm WVyOjwv dGQ+LW75tg03K0AfDeclGmt 9ZUOuNYM1fFY9xF6qTZAcLQ xvx0N2gUJ8Z3QuxtGxcp5ih 2xsYXBz ZTo (more content not included)... [facility] Rad - Other Radiology Report on 06-30-2022 Rad - Other Radiology Report [id number]#[id number] GTIFF [facility] Consent Formson 06-26-2022 Consent Forms [id number]#1.00OT GTIFF Normal [facility] Mammo Diagnostic 3D Left. on 06-25-2022 [place] Mammo Diagnostic 3D Left. MAMMOGRAM DIAGNOSTIC 3-D LEFT CLINICAL DATA: Left breast ultrasound study noted on screening mammogram study dated 06/03/2022, reevaluation. Diagnostic digital mammogram study of the left breast was performed with 2-D and 3-D tomosynthesis imaging. Study was compared to the screening mammogram study of the breasts dated 06/03/2022 as well as ultrasound study of the left breast performed today on 06/25/2022. Breast tissue is heterogeneously dense. Previously noted 5 x 4 mm asymmetric density within the left breast posteriorly, laterally near the midline on CC view is again identified. Coned-down compression views as well as true lateral view of the left breast were obtained. The area is questionably suggested inferiorly on the MLO view and not convincingly demonstrated on the true lateral view. Ultrasound study demonstrates at the 6-o'clock position a finding which is felt to correlate with the mammographic finding, this does not appear to be a simple cyst on ultrasound. Follow-up tissue diagnosis of the region by means of ultrasound guided needle biopsy is recommended for further evaluation. R2 image Binder Cutter Hand was utilized for this study. There is what appears to be a loop recorder on the left as previously noted. R2 image Binder Cutter Hand was utilized for this study. IMPRESSION: There is a 5 x 4 mm area of asymmetric density again identified in the posterolateral aspect of left breast near the midline, felt to be a nonsimple cystic structure, possibly a solid structure on the ultrasound exam. Etiology remains uncertain. Follow-up tissue diagnosis by means of ultrasound guided needle biopsy is recommended for further evaluation. BIRADS: 4 - Findings demonstrate a suspicious abnormality. Biopsy is indicated. OVERALL ASSESSMENT- SUSPICIOUS A letter of notification will be sent to the patient regarding the results. Assessment / Recommendation: 4-1 Biopsy should be considered Breast density: Heterogeneously Dense Recall interval: Now Final Dictated by: Trell Gordillo MD Dictated DT/TM: 06/26/22 6:25 Signed (Electronic Signature): Trell Gordillo MD 05/19/23 12:57 p Technologist: [email or web address] Assessment: 4-Suspicious abnormality, biopsy should be considered Recommendation: Biopsy should be considered Normal [facility] US Breast Left Limited.on US Breast Left Limited. EXAM: US Breast Left Limited. HISTORY: ABNORMAL MAMMOGRAM. COMPARISON: Screening mammogram study of the breasts dated 06/03/2022, diagnostic mammogram study of the left breast dated 06/25/2022. TECHNIQUE: Left breast ultrasound study was performed from the 12-o'clock to the 6-o'clock position to include area of asymmetric density noted in the posterolateral aspect of the left breast near the midline on the mammogram studies. FINDINGS: At approximately the 6-o'clock position there is an area of decreased echogenicity with internal echoes measuring approximately 0.4 x 0.4 x 0.2 cm felt to correlate with the asymmetric density noted on the mammogram studies. The finding is not felt to represent a simple cyst, possibly a small solid structure. Etiology is uncertain. Follow-up tissue diagnosis by means of ultrasound guided needle biopsy is recommended for further evaluation. IMPRESSION: Small nonsimple cystic structure, possibly a solid structure at the 6-o'clock position of the left breast felt to correlate with the small density noted on the mammogram studies. Follow-up tissue diagnosis by means of ultrasound guided needle biopsy is recommended for further evaluation. BI-RADS Category 4: Suspicious. Final Dictated by: Trell Gordillo MD Dictated DT/TM: 06/26/22 6:32 Signed (Electronic Signature): Trell Gordillo MD 06/26/22 12:57 p Technologist: PM,ER Normal [facility] Comment on above: Order Comment: Reque st for coned down compression view and true lateral view of the left breast Coding Summaryon 06-08-2022 Coding Summary HTMLBase 64 ImrgzsmcHSu5dRg+PGhlYWQ +KY0RSLLuC16rkXSfcB5UF8 dMMQ7WPMGJIFGHJU1GSN9gc WG0LFtkY0XyhyVt JdlglEAaCW72XDh6VKY7wVz dVWxhnI2dhFZpH9b9ElFoLV 56wB47RJsmYLHpXkM1FgVck jsgbWFy B8ytKrYakIVnQjx+PHRhYmx lIHdpZHRoPScxMDAlJyBzdH pfOL1zPb1iUXJbAKUczOeui HNlOiBj l8nyKITkJAviOR0kyQnmM4W feRT8KBAzq5x6Uz10fMD+PH AvRRW9jXkyJPegx315GvEan 4etYZI7 mPSsQKhkQHY3H96kz3T2HVK vCVSsSJI4uAY1tH3gpKddzy enA1GwlBDuMrY5ZDH1kTDdy K0mtNmk dhedyM4yUyu+R27YWS8QTUT PUE3NAon2Q8TaRvfowMX+PC 85KWLpVH35vAJmqNHqe6sqh Av8KiKy VDXtCNX8gKqjXHhot7SbXKC eX27rbGIjl7X5MNGscIpyyB VmJsNvcHZ3mY3kVIgqgwiaw 2hvdzsn Vupev6mttv19mE26Y16tAMk bHVXlGKH1CLXdWEMpuZkipu 1eiM9mDx9+WRmoo2ilx8wrz Ou1NlYx PFWxoaMpsQzvNMU9k6TdMr5 8C6PgtAmvo8BvTeo0cc01rA Kdj0M0lVB6PGmdCKRiyB5uA WxlZnQ6 TWWqYkXqgU68wBMpJNzfXm1 aoXvllSozVV7xSRSkledvGS MazP4xGHLoqDHelBzkRK5qB TBpbjtm k161UfKzVJS9UYHifEDfW4H rdV0tQyLbTKVvTEXjT0VzkH CyJOamM877LJnxRlI7OUQnv gAkE4Bu DHHzvVmpPaQ9j6N4Ws2On4D itkvlNDQ3QKmdIWX5ClRhGq JcCxO7R7OeCrj7WJZacHgtU M4eJ7Cd OEThqdgahesghOB9NVOzRNN kxY30aOHaNKhnMo2aq6B7f2 14RUDePNMcfF22Po4lbBxnD TBwdCBU hC0aywamq6nvistuOaUaRIV lRBb1MNy1VNSbsGixNzNkXM N7MxA4BCX9kNUofJ2obSnox nzpjI4m Oyc+P42mqU6yXZJ5YPG6idi yNHLaxsQtYW49FA39S2BwPq wvdGFibGU+PGRpdiBzdHlsZ J0eVbBb j7wgq6TcJPytC6UcEGQkXQc aTzc8LYGbSTT4sKP5bY8fZM DcYQken0F2aXF1I6WpbvQso n9jl9da CCKiTWsaB00tiODkv8Y9XZR gaYP3DYAozTmcDvBzuA88Kz c+ICCtoWbce7VpMtnpb8vnz 2yxxZc9 HqClUXRpfpGhbHbyZIS0q9C dUg52F95oILtfQWAkWYMbWV NtHMWakMpqzb3amI4lOf1+P GNvbCB3 lIL4nN4fMSGfMjQ1MCjpO39 1YlEdiTWmPnenn7kdo5jwoK g4CzFeSUYqgoVykFmbRIM3j 6JzKy96 N74bUAepQRDnXQZqDPMeKRV thJxalu8tvH4jCh0+PC9jb2 vzzg78iU53yLO+DAHtOGG4e WxlPSdw KIBuuH2cXEugGrX4IGRyTeV cfU12iOVrNQdoLe3luYhkiF wmLT9qGELsrawfk882IbUmn 2xkIDEw wFOuAPoeJSK8I81sr4R1LSZ tWZThCAF9rDX8xQ4tjBlrui ogbGVmdDsgdmVydGljYWwtY IwiT440 IHRvcDsnPlBhdGllbnQgTmF bOFk8W4RlKcc0ITSiyOyzXP 6aiSXoXDspKv3cbVvksEehL O2iHOPx eyxxb531YlSjb6niZMRftFE wGEinZUB7Y89po1M7BUXyTU JdDEC5xTR9uM6aiErrcmgfz GVmdDsg hbOtiJjsOZlmCNggI624IUK qvVlcBeTluyWxQTOanVP3HW 28HK39rPSpv1Z4wTF6I0PtX GRpbmct zwagdTE4DKWiDXSpiQ81Tf3 wwGwuRx0cQXYoMEQ0WUWgdT HzY0ZenL1aCmHbPPIfMGZdT 3RleHQt BHzxN385GIshKfQ2NHHnmmI kE8GnNCBmyIxcNqM3t3O3By 2EP8Z3RF89BL91gAXfy6W4q TQ5M2Wk RIEtikeowwmhjSR0PWDlOZG xvY58Vz9cyQxyZa2zVDRtNA S8KHPfeBLmX0PmeH9yHmHfN DAwMDAw V1JngYEfCBavR347NIviUzS 5KFCakfGmH5OrGUNsbLyjDm F8i9R7Zt6ZAIc0CO60HM47t IBce1O5 wFV0A8LmWVRwgtzbapuviCC 4HKChFDVldJ62Dn1lzVjgSs 3fNICoSEH3DVZlvCBgR3Oci E1kPfYq PSAePLDyG5UadTJtFYhnN78 4BVjlYjS7CTSlhwAmP8IkYR AnxKdsAsM5l1V4Nj8RFZAkE D40ULX7 yCH8AB77RC07R0ScDtyaaBI ibGU+PHRhYmxlIHdpZHRoPS qaDUMaBzLtjVelNK1jBp6oC GVyLWNv rJakkOZuPuKpq4zaYKOfCGk hLN5nhLtlP6FvwTT2VUAyv0 j2Sw90R99jS9DwpEX+PGNvb MP6aIL8 zO1cCdOtJmT3OMvfD488IfV kgFQdJhyzo2xzt2klkSc5Bm S6CCDyrtXmoZhaOCM3m0JaN v53J61u IHdpZHRoPSIxNSUiIHZhbGl oue3dnB4lGn2+IMEivGM9rR O7dB1aVpAfMkC6XXrnN039G nRvcCIv Hiqef2rsb2ojsLb8InFsBJH yyuFiwCivEXM5k5QaHt10E1 IfvFfgc1QnXvq2za90nRZzt 9X1zYQ3 T8NrAYVerauvzXGapRbqND8 kMQVxghnaQQOkxK9qGNHaG3 j1KcFmRhE9VAaiJ1KhgdB7E DEwcHQg ZXuaFDG1O84ng6S2IAKrGJC uFBP3oYV4xZ4vjAxekdozbB VmdDsgdmVydGljYWwtYWxpZ 246IHRv qNtgSZMmlB0nGELdiRBvmSs eMH4kRWUfotsaYh5LGTnQEq gkQ1tGS84SGQeOEVA6W4LoV ll3MAEm jBwmLK3piYKzKKikGx6eiPb qbWokQK0wKIRdtllzGCBhnT 7iBFXwxUEghIykLE4tTGOjl scap291 DeSlBQE5JXJnqTUzM3MhlI1 xTiOaTFCnHYLrA7EmrKLqKB tbH255NEotJqE2AHNydbPmW 2FsLWFs pVuzXpX1g4W9Ms3hJc9nZD6 uAPf1CH18HT00rJPjx6N8tI Q2M4XrMAOvfiyemtvqtKG7F DAuMDUw hS17aQFcHYbaCv4ys3P9d81 4GREtHPJqnS98Qi2baJaiRK CzmSKRkG8otdqpf1hfxforI zAwMDAw FVv7LOg0AKLwqCykBaJpQHM 0UuD8YFN2qWJgfF0jtLtlwb micI4kPmq+GqYnAWEnxcS8X 1WnOnj8 OLFjlZuxBD7dlMTmIGvbEe4 blYebxLlyKO7fWSOwqpqfPO GejD8lDRVweUMwhFwtSX4dL TBpbjtm d120VaPjTPD7NYJxqTEiP5G yyQ4nNpZmANYpTVBgX6XdlA GwCDqsR479KDgyEiJ9ISFdb kGhG0Kq ZINxzFbcOuY4h3K4Da2JLS8 PFTT2L2ZfHjt8ZSEzmXvsWO 2uhYVjTDyaMr6ugTmljEggJ E5iXCWz zfifQTCfwU9tEXErnRZvlNl wZE4xGMJvhkwim791IoRuNS Y7GFDiqWNwS5KtrH5cGrGuT DAwMDAw L2GehKXzRIuzZ469FVxvOcX 1ZYVthkGlP4NaSIGpwTouYy Y7r0J3Uk3NYIkrsVZ+PC90c m65T2Ob WysuPqi9FIJtTRN5nJN8kT4 sAMQsPXhek2T0xRM6K0Ifpk Lfvl7cl0stTMHmPUxpR35ja RFma7L2 LFRfoPT4JGXcvMmjRvGjwA9 3Oyc+XWEbiFngx8HjMkjad1 dzw3kaaOl9MeToSIAiqpMqw WduPSJ0 l6FiHq03B87fGLllLCPmYZU yRJBxEOIfiOvzoa8qkY5oHs 8+SWFknCU4sOW6dF9cLtAcT dB1PPel E008ShWfhJLsEvzzp6wiw5d fmUt5ZvYpNROhlfLpyIajMQ E4s8ZwYw04Q9PuhIxey5NqF td7ag86 zAFco6E6hRD4I5FtFGOxoia jxDMhySmbBW1mIUOenuqxWS RkjD6aHLYlW1x6AcEdNdT5X QgwC3Vi xyL5KKEzdVKqXXYhzJOFgA1 yswhys0alhxglFcBlWSZlZZ i0QUz1DNCeuIdkMnBiVDC2E nO5UWZ8 eOFobN3fxWrydwokiC7wLyz +YZn0h2ycfCBtLH1vnCG7ML 12QQ46tJNfm7R3aLK3N2ZaP GRpbmct mslfmOZ1LQOrUJNgxS90Fa2 siCqnRp4hPTKfDMF7MAIkqN EuD3ZvjC3qCpOgYVPvSDCeS 3RleHQt OVypL212BRnsNjW7RCApckD kV9HtILBvuPjlCkG5m5H8Fu 7CHR35TL55SF91jVNjm8H7f BU5W5Dg EDNmpwgvsusquHD9TIPtVDX mmE69Iq7aoPlhBv5bGFOvBK X3PGLmrHIcU4XtdF6aKmEsM DAwMDAw E9RnpICrJMtlU380EQbxJhD 0CZLgflVjA9FsMSVtnPrjYi Y0j8D8Tt7ZIo71CJ70MZ34i OZqo9Y3 aVC5R8CsOFOefceymsorqCC 7DVPoFBLgjZ03Rq0iiSnvGi 8kDWBvTAG1BKIpoYHvP5Nin C4fDeJc ARYnWTRrU4UtzYOoKJaxK67 8SMecGiE1BZJbztAbC4MgOB EgeNxvMgL6u5R6Bj5PJYwtl ch3A4Sr PjwvdHI+LT14IVIiTS50sZB ldJGdh1qkxRq6SjJsOBQvRO Q3mDeeAUebf6JiKJDxD42iy FNdn0W3 IGN (more content not included)... Normal [facility] Miscellaneous Testing LCon 0 06-05-2022 [facility] [place]. Test Result LC COMMENT Invalid Interpretation Code [facility] Comment on above: Order Comment: Pap w ith Ct/Ng, hr HPV, rfx 16 and 18/45ThinPrepCervixBrush/Spatula Result Comment: [id number] Source.............Cervix No. of containers..01 ThinPrep Vial Test Ordered: IGP,CtNg,AptimaHPV,rfx16/18,45 DIAGN Comment KWCYT NEGATIVE FOR INTRAEPITHELIAL LESION OR MALIGNANCY. ADEQ Comment KWCYT Satisfactory for evaluation. No endocervical component is identified. PERFOR Comment KWCYT Sujey Zuniga, Pipe Layer Helper (ASCP) COMM . KWCYT NOTE Comment WB The Pap smear is a screening test designed to aid in the detection of premalignant and malignant conditions of the uterine cervix. It is not a diagnostic procedure and should not be used as the sole means of detecting cervical cancer. Both false-positive and false-negative reports do occur. IGLBP Comment WB This liquid based ThinPrep(R) pap test was screened with the use of an image guided system. HPV Aptima Positive [A ] =G Reference Range: Negative This nucleic acid amplification test detects fourteen high- risk HPV types (16,18,31,33,35,39,45,51,52,56,58,59,66,68) without differentiation. REFLEX Comment [facility] Criteria met, see HPV Genotype results. HPV Genotype 16 Negative =G Reference Range: Negative HPV Genotype 18,45 Negative =G Reference Range: Negative Chlamydia, Nuc. Acid Amp Negative =G Reference Range: Negative Gonococcus, Nuc. Acid Amp Negative =G Reference Range: Negative Performed At: [facility] [address] [id number] Frankie Rebollar MD Ph:[phone] Performed At: [facility] [address] [place], [place] [id number] Kassie Freire MD Ph:[phone] Performed At: =G [facility] [id number] Frankie Rebollar MD Ph:[phone] Performed By: #### 1 [id number] ####[facility] (DEFAULT)[address] [place] [address] Consent Formson 06-04-2022 Consent Forms [id number] TGTIFF [facility] Mammo Screening 3D Bilate ral.on 06-03-2022 [place] Mammo Screening 3D Bilateral. Mammogram screening 3-D bilateral CLINICAL DATA: Routine screening Screening digital mammogram study of both breasts was performed with 2-D and 3-D french synthesis imaging. Breast tissue is heterogeneously dense bilaterally. On the CC view of the left breast posteriorly laterally near the midline there is an approximately 5 x 4 mm asymmetric density which is nonspecific. Follow-up diagnostic mammogram study of the left breast as well as ultrasound study left breast is recommended for further evaluation. At the diagnostic setting coned-down compression views as well as true lateral view of the left breast should be obtained for further evaluation. Loop recorder is seen at the left axillary level on the MLO view. R2 image Binder Cutter Hand was utilized for this study. IMPRESSION: Asymmetric density in the posterior left breast on the CC view as described. Follow-up diagnostic mammogram study left breast with views suggested above as well as ultrasound study left breast is recommended for further evaluation. BIRADS: 0 - Need additional imaging evaluation at this time. OVERALL ASSESSMENT- NEED ADDITIONAL IMAGING EVALUATION. A letter of notification will be sent to the patient regarding the results. Assessment / Recommendation: 0-1 Additional projections ultrasound Breast density: Heterogeneously Dense Recall interval: Now Final Dictated by: Trell Gordillo MD Dictated DT/TM: 06/04/22 9:48 Signed (Electronic Signature): Trell Gordillo MD 06/04/22 3:17 pm Technologist: AUBRIE Assessment: 0-Incomplete: Need additional imaging evaluation Recommendation: Additional projections [facility] Outside Recordson 06-03-2022 Outside Records [id number] GTIFF [facility] Provider Orderson 05-27-2022 Provider Orders [id number] TGTIFF [facility] Miscellaneous Testing LCon 0 05-26-2022 Miscellaneous Testing LC Pap w/ Ct/Ng, hr HPV, rfx Invalid Interpretation Code [facility] Comment on above: Order Comment: Pap w ith Ct/Ng, hr HPV, rfx 16 and 18/45ThinPrepCervixBrush/Spatula Performed By: #### 1 [id number] ####[facility] (DEFAULT)[address] [place] [address] Test Code LC [id number] Invalid Interpretation Code [facility] Comment on above: Order Comment: Pap w ith Ct/Ng, hr HPV, rfx 16 and 18/45ThinPrepCervixBrush/Spatula Performed By: #### 1 [id number] ####[facility] (DEFAULT)[address] [place] [id number] Test Name LC Pap w/ Ct/Ng, hr HPV , rfx Invalid Interpretation Code [facility] Comment on above: Order Comment: Pap w ith Ct/Ng, hr HPV, rfx 16 and 18/45ThinPrepCervixBrush/Spatula Performed By: #### 1 [id number] ####[facility] (DEFAULT)[address] [place], [place] [id number] Outside Recordson 05-22-2022 Outside Records [id number] TGTIFF Normal [facility] CBC AUTO DIFFon 03-23-2020 Basophils (Bld) [#/Vol] 0.1 103/ul Normal 0.0-0.1 [facility] Comment on above: Performed By: #### C BC #### [facility] [address] [place] [address] Akin Aysha Basophils/100 WBC (Bld) 0.6 % Normal 0.2-2.0 [facility] Comment on above: Performed By: #### C BC #### [facility] [address] [place] [address] Akin Aysha Eosinophils (Bld) [#/Vol] 0.2 103/ul Normal 0.0-0.7 [facility] Comment on above: Performed By: #### C BC #### [facility] [address] [place] [address] Akin Aysha Eosinophils/100 WBC (Bld) 2.3 % Normal 0.9-7.0 [facility] Comment on above: Performed By: #### C BC #### [facility] [address] [place] [address] Akin Aysha Erythrocyte distribution width (RBC) [Ratio] 12.2 % Normal 11.0-15.0 [facility] Comment on above: Performed By: #### C BC #### [facility] [address] [place] [address] Akin Aysha Hematocrit (Bld) [Volume fraction] 43.4 % Normal 36.0-48.0 [facility] Comment on above: Performed By: #### C BC #### [facility] [address] [place] [address] Akin Aysha Hemoglobin (Bld) [Mass/Vol] 14.4 g/dL Normal 12.0-16.0 [facility] Comment on above: Performed By: #### C BC #### [facility] [address] [place] [address] Akin Aysha IG # 0.03 10e3/ul Normal 0.00-0.03 [facility] Comment on above: Performed By: #### C BC #### [facility] [address] [place] [address] Akin Aysha IG % 0.3 % Normal 0.0-0.5 [facility] Comment on above: Performed By: #### C BC #### [facility] [address] [place] [address] Akin Aysha Lymphocytes (Bld) [#/Vol] 3.8 103/ul Normal 1.2-3.8 [facility] Comment on above: Performed By: #### C BC #### [facility] [address] [place] [address] Akin Aysha Lymphocytes/100 WBC (Bld) 37.3 % Normal 20.5-60.0 [facility] Comment on above: Performed By: #### C BC #### [facility] [address] [place] [address] Akin Aysha MANUAL DIFF REQ NO Normal [facility] Comment on above: Performed By: #### C BC #### [facility] [address] [id number] Akinenio Olmstead MCH (RBC) [Entitic mass] 30.9 pg Normal 26.7-34.0 [facility] Comment on above: Performed By: #### C BC #### [facility] [address] [place], [place] [id number] Akin Aysha MCHC (RBC) [Mass/Vol] 33.2 g/dL Normal 29.9-35.2 [facility] Comment on above: Performed By: #### C BC #### [facility] [address] [place], [place] [id number] Akin Aysha MCV (RBC) [Entitic vol] 93.1 fL Normal 81.0-99.0 [facility] Comment on above: Performed By: #### C BC #### [facility] [address] [place], [place] [id number] Akin Aysha Monocytes (Bld) [#/Vol] 0.9 103/ul Critically high 0.3-0.8 [facility] Comment on above: Performed By: #### C BC #### [facility] [address] [place], [place] [id number] Akin Aysha Monocytes/100 WBC (Bld) 8.7 % Normal 1.7-12.0 [facility] Comment on above: Performed By: #### C BC #### [facility] [address] [place], [place] [id number] Akin Aysha Neutrophils (Bld) [#/Vol] 5.2 103/ul Normal 1.4-6.5 [facility] Comment on above: Performed By: #### C BC #### [facility] [address] [place], [place] [id number] Akin Aysha Neutrophils/100 WBC (Bld) 50.8 % Normal 43.0-75.0 [facility] Comment on above: Performed By: #### C BC #### [facility] [address] [place], [place] [id number] Akin Aysha Platelet mean volume (Bld) [Entitic vol] 8.6 fL Critically low 9.5-13.5 [facility] Comment on above: Performed By: #### C BC #### [facility] [address] [place] [address] Akin Olmstead Platelets (Bld) [#/Vol] 347 103/ul Normal 150-450 [facility] Comment on above: Performed By: #### C BC #### [facility] [address] [place] [address] Akin Olmstead RBC (Bld) [#/Vol] 4.66 106/ul Normal 4.20-5.40 [facility] Comment on above: Performed By: #### C BC #### [facility] [address] [place] [address] Akin Olmstead WBC (Bld) [#/Vol] 10.2 103/ul Normal 4.0-11.0 [facility] Comment on above: Performed By: #### C BC #### [facility] [address] [place] [address] STROKE HEAD WOon 03-23-[address] STROKE HEAD WO EXAM: CT STROKE HEAD WO 03/22/2020 11:05 PM EST OH001 CLINICAL STATEMENT: Dysarthria COMPARISON: No prior studies are available at the time of dictation. TECHNIQUE: Multiple axial images were obtained of the brain without intravenous contrast. AEC is utilized. 2-D reconstructed images are provided. FINDINGS: The ventricles and the cortical sulci have normal size contour and symmetry. There is no evidence for intracranial hemorrhage. There is no mass effect and or midline shift. No extra-axial collections. Limited by beam hardening artifact obscuring evaluation of the left middle cranial fossa. Limited evaluation of the orbits and the paranasal sinuses are normal. IMPRESSION: No acute intracranial abnormality. FOLLOW-UP: Follow-up as clinically indicated. Dose reduction techniques were achieved by using automated exposure control and/or adjustment of mA and/or kV according to patient size and/or use of iterative reconstruction technique. Critical result discussed with Dr. Sera Perez at the time of dictation. Electronically authenticated by: CARMENCITA HERNANDEZ Date: 2020-03-22 23:46 Normal [facility] CTA HEAD WO W CONon 03-23-19 21 CTA HEAD WO W CON EXAM: CTA HEAD WO W CON 03/22/2020 11:04 PM EST OH001 CLINICAL STATEMENT: Dysarthria COMPARISON: No prior studies are available at the time of dictation. TECHNIQUE: Routine [place]/brain CT angiogram protocol was performed following 75 cc Omnipaque 350 of intravenous contrast. AEC is utilized. 2-D and 3D reconstructions were reviewed. FINDINGS: There is no evidence for intracranial aneurysm and/or high-grade stenosis of the [place]. The vertebrobasilar artery is patent without aneurysm and/or high-grade stenosis. No acute intracranial arterial occlusions are identified. IMPRESSION: Unremarkable CTA of the head. FOLLOW-UP: Follow-up as clinically indicated. Dose reduction techniques were achieved by using automated exposure control and/or adjustment of mA and/or kV according to patient size and/or use of iterative reconstruction technique. Electronically authenticated by: CARMENCITA SAID Date: 2020-03-23 00:52 Normal [facility] CTA NECK WO W CONon 03-23-19 21 CTA NECK WO W CON EXAM: CTA NECK WO W CON 03/22/2020 11:05 PM EST OH001 CLINICAL STATEMENT: Dysarthria COMPARISON: No prior studies are available at the time of dictation. TECHNIQUE: Routine carotid CT angiogram protocol was performed without and with 75 cc Omnipaque 350 of IV contrast. NASCET criteria using the distal ICAs for comparison were used for evaluation of stenosis. AEC is utilized. 2-D and 3D reconstructions were reviewed. FINDINGS: The common carotid arteries are widely patent. The right internal carotid artery is patent. The left internal carotid artery is patent. There is no hemodynamically significant internal carotid artery stenosis. The visualized portions of the vertebral arteries are patent. There is normal configuration of the aortic arch and its branch vessels. No incidental masses are identified. No cervical fluid collections are identified. Lung apices are clear. IMPRESSION: Unremarkable CT Carotid angiogram. No hemodynamically significant internal carotid artery stenosis. FOLLOW-UP: Follow-up as clinically indicated. Dose reduction techniques were achieved by using automated exposure control and/or adjustment of mA and/or kV according to patient size and/or use of iterative reconstruction technique. Electronically authenticated by: [place] SAID Date: 2020-03-23 00:54 Normal [facility] CULTURE URINEon 03-23-2020 CULTURE URINE Culture Observations : NO GROWTH Normal [facility] Comment on above: Performed By: #### I NFLUAB #### [facility] [address] [place] [address] Akin Olmstead DRUG SCREEN RAPID (URINE)on 03-23-2020 AMP Negative Normal NEGATIVE [facility] Comment on above: Performed By: #### U MICRO, DRUGRPD, ERUR #### [facility] [address] [place] [address] Akinenio Olmstead BAR Negative Normal NEGATIVE [facility] Comment on above: Performed By: #### U MICRO, DRUGRPD, ERUR #### [facility] [address] [place] [address] [facility] Normal NEGATIVE [facility] Comment on above: Performed By: #### U MICRO, DRUGRPD, ERUR #### [facility] [address] [place] [address] Akin Aysha BZO Negative Normal NEGATIVE [facility] Comment on above: Performed By: #### U MICRO, DRUGRPD, ERUR #### [facility] [address] [place] [address] Akin Aysha JESUS Negative Normal NEGATIVE [facility] Comment on above: Performed By: #### U MICRO, DRUGRPD, ERUR #### [facility] [address] [place] [address] Akin Olmstead CUT-OFFS SEE BELOW Normal [facility] Comment on above: Result Comment: AMP (Amphetamine): 500ng/mL, BAR (Barbituates): 200 ng/mL, BZO (Benzodiazepines): 150 ng/mL, BUP (Buprenorphine): 10 ng/mL, JESUS (Cocaine): 150 ng/mL, mAMP (Methamphetamine): 500 ng/mL, MTD (Methadone): 200 ng/mL, OPI (Opiates): 100 ng/mL, OXY (Oxycodone): 100 ng/mL, PCP (Phencyclidine): 25 ng/mL, PPX (Propoxyphene): 300 ng/mL, THC (Cannabinoids): 50 ng/mL, TCA (Trycyclic Antidepressants): 300 ng/mL Performed By: #### U MICRO, DRUGRPD, ERUR #### [facility] [address] [place] [address] Akin Aysha DRUG CUT HEADER DRUG CLASS TEST SYST EM CUT-OFF CONCENTRATIONS ARE FOLLOWS: Normal [facility] Comment on above: Performed By: #### U MICRO, DRUGRPD, ERUR #### [facility] [address] [place] [address] Akin Aysha mAMP Negative Normal NEGATIVE [facility] Comment on above: Performed By: #### U MICRO, DRUGRPD, ERUR #### [facility] [address] [place] [address] Akin Aysha MTD Negative Normal NEGATIVE [facility] Comment on above: Performed By: #### U MICRO, DRUGRPD, ERUR #### [facility] [address] [place] [address] Akin Aysha OPI Negative Normal NEGATIVE [facility] Comment on above: Performed By: #### U MICRO, DRUGRPD, ERUR #### [facility] [address] [place] [address] Akin Aysha OXY Negative Normal NEGATIVE [facility] Comment on above: Performed By: #### U MICRO, DRUGRPD, ERUR #### [facility] [address] [place] [address] Akin Aysha PCP Negative Normal NEGATIVE [facility] Comment on above: Performed By: #### U MICRO, DRUGRPD, ERUR #### [facility] [address] [place] [address] Akin Aysha PPX Negative Normal NEGATIVE [facility] Comment on above: Performed By: #### U MICRO, DRUGRPD, ERUR #### [facility] [address] [place] [address] Akin Aysha TCA Negative Normal NEGATIVE [facility] Comment on above: Performed By: #### U MICRO, DRUGRPD, ERUR #### [facility] [address] [place] [address] Akin Aysha THC Positive Abnormal NEGATIVE [facility] Comment on above: Performed By: #### U MICRO, DRUGRPD, ERUR #### [facility] [address] [place] [address] Akin Aysha ER URINE PROFILEon 1 Bilirubin [Mass/Vol] Negative Normal NEGATIVE [facility] Comment on above: Performed By: #### U MICRO, DRUGRPD, ERUR #### [facility] [address] [place] [address] Akin Aysha BLOOD TRACE-INTACT Abnormal NEGATIVE [facility] Comment on above: Performed By: #### U MICRO, DRUGRPD, ERUR #### [facility] [address] [place] [address] Akin Aysha Clarity (U) CLEAR Normal CLEAR [facility] Comment on above: Performed By: #### U MICRO, DRUGRPD, ERUR #### [facility] [address] [place] [address] Akin Aysha Color (U) YELLOW Normal YELLOW [facility] Comment on above: Performed By: #### U MICRO, DRUGRPD, ERUR #### [facility] [address] [place] [address] Akin Aysha ERUAHD A micrscopic examination will be performed if indicated. Normal [facility] Comment on above: Performed By: #### U MICRO, DRUGRPD, ERUR #### [facility] [address] [place] [address] Akin Aysha Glucose [Mass/Vol] Negative Normal NEGATIVE [facility] Comment on above: Performed By: #### U MICRO, DRUGRPD, ERUR #### [facility] [address] [place] [address] Akin Aysha Ketones Ql (U) Negative Normal NEGATIVE [facility] Comment on above: Performed By: #### U MICRO, DRUGRPD, ERUR #### [facility] [address] [place] [address] Akin Aysha Nitrite Ql (U) Negative Normal NEGATIVE [facility] Comment on above: Performed By: #### U MICRO, DRUGRPD, ERUR #### [facility] [address] [address] Akin Olmstead pH (Bld) 5.5 Normal 5-9 [facility] Comment on above: Performed By: #### U MICRO, DRUGRPD, ERUR #### [facility] [address] [place] [address] Akin Olmstead Protein (U) [Mass/Vol] Negative Normal NEGATIVE/ TRACE [facility] Comment on above: Performed By: #### U MICRO, DRUGRPD, ERUR #### [facility] [address] [place] [address] Akin Olmstead SPEC GRAVITY 1.025 Normal 1.005-<=1.025 [facility] Comment on above: Performed By: #### U MICRO, DRUGRPD, ERUR #### [facility] [address] [place] [address] Akin Olmstead UR MICRO IND INDICATED Normal [facility] Comment on above: Performed By: #### U MICRO, DRUGRPD, ERUR #### [facility] [address] [place] [address] Akin Olmstead Urobilinogen Qn (U) 0.2 EU/dl Normal 0.2 - 1.0 [facility] Comment on above: Performed By: #### U MICRO, DRUGRPD, ERUR #### [facility] [address] [place] [address] Akin Olmstead WBC (Bld) [#/Vol] Negative Normal NEGATIVE [facility] Comment on above: Performed By: #### U MICRO, DRUGRPD, ERUR #### [facility] [address] [place] [address] Akin Olmstead POINT OF CARE GLUCOSEon 03-11 Glucose [Mass/Vol] 111 mg/dL Critically high 74-[address] [facility] Comment on above: Performed By: #### P OCGLUC #### [facility] [address] [place] [address] Akin Olmstead URon 03-23-2020 , QUAL Negative Normal NEGATIVE [facility] Comment on above: Performed By: #### P REGU #### [facility] [address] [place], [place] [address] Akinenio Segundoen PROF 14(COMP METB)on 021 Albumin [Mass/Vol] 3.9 g/dL Normal 3.5-5.0 [facility] Comment on above: Performed By: #### C CHRISTIAN, HSTROPN #### [facility] [address] [place], [place] [address] Akin Aysha Albumin/Globulin [Mass ratio] 1.0 {ratio} Normal [facility] Comment on above: Performed By: #### C CHRISTIAN, HSTROPN #### [facility] [address] [id number] Akin Aysha ALP [Catalytic activity/Vol] 43 U/L Normal 38-126 [facility] Comment on above: Performed By: #### C CHRISTIAN, HSTROPN #### [facility] [address] [id number] Akin Aysha ALT [Catalytic activity/Vol] 29 U/L Normal 9-52 [facility] Comment on above: Performed By: #### C CHRISTIAN, HSTROPN #### [facility] [address] [id number] Akin Aysha Anion gap [Moles/Vol] 13.1 mmol/L Normal [facility] Comment on above: Performed By: #### C CHRISTIAN, HSTROPN #### [facility] [address] [id number] Akin Aysha AST [Catalytic activity/Vol] 20 U/L Normal 14-36 [facility] Comment on above: Performed By: #### C CHRISTIAN, HSTROPN #### [facility] [address] [id number] Akin Aysha Bilirubin Ql (U) 0.2 mg/dL Normal 0.2-1.3 [facility] Comment on above: Performed By: #### C CHRISTIAN, HSTROPN #### [facility] [address] [id number] Akin Aysha Calcium [Mass/Vol] 9.3 mg/dL Normal 8.4-10.2 [facility] Comment on above: Performed By: #### C CHRISTIAN, HSTROPN #### [facility] [address] [id number] Akin Aysha Chloride [Moles/Vol] 105 mmol/L Normal 98-107 [facility] Comment on above: Performed By: #### C CHRISTIAN, HSTROPN #### [facility] [address] [place], [place] [address] Akin Aysha CO2 [Moles/Vol] 24.4 mmol/L Normal 22.0-30.0 [facility] Comment on above: Performed By: #### C CHRISTIAN, HSTROPN #### [facility] [address] [place] [address] Akin Aysha Creatinine [Mass/Vol] 0.72 mg/dL Normal 0.52-1.04 [facility] Comment on above: Performed By: #### C CHRISTIAN, HSTROPN #### [facility] [address] [place] [address] Akin Aysha EGFR-AF SIERRA LEONEAN >60 Normal >=60 [facility] Comment on above: Performed By: #### C CHRISTIAN, HSTROPN #### [facility] [address] [place] [address] Akin Aysha EGFR-NON AF SIERRA LEONEAN >60 Normal >=60 [facility] Comment on above: Performed By: #### C CHRISTIAN, HSTROPN #### [facility] [address] [place] [address] Akin Aysha Globulin (S) [Mass/Vol] 3.8 g/dL Normal [facility] Comment on above: Performed By: #### C CHRISTIAN, HSTROPN #### [facility] [address] [place], [place] [id number] Akin Aysha Glucose [Mass/Vol] 91 mg/dL Normal 74-106 [facility] Comment on above: Performed By: #### C CHRISTIAN, HSTROPN #### [facility] [address] [place] [address] Akin Aysha Potassium [Moles/Vol] 3.5 mmol/L Normal 3.4-5.0 [facility] Comment on above: Performed By: #### C CHRISTIAN, HSTROPN #### [facility] [address] [place] [address] Akin Aysha Protein [Mass/Vol] 7.7 g/dL Normal 6.1-8.2 [facility] Comment on above: Performed By: #### C CHRISTIAN, HSTROPN #### [facility] [address] [place], [place] [address] Akin Aysha Sodium [Moles/Vol] 139 mmol/L Normal 137-145 [facility] Comment on above: Performed By: #### C CHRISTIAN, HSTROPN #### [facility] [address] [place] [address] Akin Aysha Urea nitrogen [Mass/Vol] 15.0 mg/dL Normal 7.0-17.0 [facility] Comment on above: Performed By: #### C CHRISTIAN, HSTROPN #### [facility] [address] [place] [address] Akin Aysha Urea nitrogen/Creatinin e [Mass ratio] 20.8 mg/mg Normal [facility] Comment on above: Performed By: #### C CHRISTIAN, HSTROPN #### [facility] [address] [place] [address] Akinenio Segundoen TROPONIN, HIGH SENSITIVITYon 03-23-2020 HSTROP 4.0 pg/mL Normal 4.0-35.5 [facility] Comment on above: Result Comment: CUT- OFF POINTS HAVE BEEN ESTABLISHED BASED ON THE FOURTH UNIVERSAL DEFINITIONS OF MYOCARDIAL INFARCTION. THE UPPER REFERENCE LIMIT (URL) OF TROPONIN, DEFINED THE 99TH PERCENTILE OF cTnI DISTRIBUTION IN A REFERENCE POPULATION, HAS BEEN CONFIRMED THE DECISION THRESHOLD FOR OK DIAGNOSIS. Performed By: #### C CHRISTIAN, HSTROPN #### [facility] [address] [place], [place] [id number] Akin Aysha URINE MICROSCOPIC ONLYon Bacteria LM.HPF (Urine sed) [#/Area] MODERATE Abnormal NONE SEEN [facility] Comment on above: Performed By: #### I NFLUAB #### [facility] [address] [place] [address] Akin Aysha CAST NONE SEEN Normal NONE SEEN [facility] Comment on above: Performed By: #### I NFLUAB #### [facility] [address] [place], [place] [id number] Akin Aysha Crystals LM Nom (Urine sed) NONE SEEN Normal NONE SEEN [facility] Comment on above: Performed By: #### I NFLUAB #### [facility] [address] [place] [address] Akin Aysha CULTURE INDICATED Normal [facility] Comment on above: Performed By: #### I NFLUAB #### [facility] [address] [place] [address] Akin Aysha Epithelial cells LM.HPF (Urine sed) [#/Area] FEW Abnormal NONE SEEN /RARE [facility] Comment on above: Performed By: #### I NFLUAB #### [facility] Laboratory [address] [place] [address] Akin Aysha MUCOUS NONE SEEN Normal NONE SEEN [facility] Comment on above: Performed By: #### I NFLUAB #### [facility] Laboratory [address] [place] [address] Akin Aysha RBC (U) [#/Vol] 0-2 Normal 0-2 The [facility] Comment on above: Performed By: #### I NFLUAB #### [facility] Laboratory [address] [place] [address] Akin Aysha WBC (Bld) [#/Vol] 2-5 Abnormal NONE SEEN The [facility] Comment on above: Performed By: #### I NFLUAB #### [facility] Laboratory [address] [place], [place] [id number] Akin Aysha CBC AUTO DIFFon 05-12-2019 Basophils (Bld) [#/Vol] 0.1 103/ul Normal 0.0-0.1 [facility] Comment on above: Performed By: #### C BC #### [facility] Laboratory [address] [place] [address] Akin Aysha Basophils/100 WBC (Bld) 0.7 % Normal 0.2-2.0 [facility] Comment on above: Performed By: #### C BC #### [facility] Laboratory [address] [id number] Akin Aysha Eosinophils (Bld) [#/Vol] 0.2 103/ul Normal 0.0-0.7 [facility] Comment on above: Performed By: #### C BC #### [facility] Laboratory [address] [place], [place] [id number] Akin Aysha Eosinophils/100 WBC (Bld) 1.6 % Normal 0.9-7.0 [facility] Comment on above: Performed By: #### C BC #### [facility] Laboratory [address] [place], [place] [id number] Akin Aysha Erythrocyte distribution width (RBC) [Ratio] 12.1 % Normal 11.0-15.0 [facility] Comment on above: Performed By: #### C BC #### [facility] Laboratory [address] [place] [address] Akin Aysha Hematocrit (Bld) [Volume fraction] 42.5 % Normal 36.0-48.0 [facility] Comment on above: Performed By: #### C BC #### [facility] Laboratory [address] [place], [place] [id number] Akin Aysha Hemoglobin (Bld) [Mass/Vol] 14.5 g/dL Normal 12.0-16.0 [facility] Comment on above: Performed By: #### C BC #### [facility] Laboratory [address] [place] [address] Akin Aysha IG # 0.03 10e3/ul Normal 0.00-0.03 [facility] Comment on above: Performed By: #### C BC #### [facility] Laboratory [address] [place] [address] Akin Aysha IG % 0.3 % Normal 0.0-0.5 [facility] Comment on above: Performed By: #### C BC #### [facility] Laboratory [address] [place] [address] Akin Aysha Lymphocytes (Bld) [#/Vol] 4.2 103/ul Critically high 1.2-3.8 [facility] Comment on above: Performed By: #### C BC #### [facility] Laboratory [address] [place], [place] [address] Akin Aysha Lymphocytes/100 WBC (Bld) 36.2 % Normal 20.5-60.0 [facility] Comment on above: Performed By: #### C BC #### [facility] Laboratory [address] [place], [place] [address] Akin Aysha MANUAL DIFF REQ NO Normal [facility] Comment on above: Performed By: #### C BC #### [facility] Laboratory [address] [place], [place] [address] Akin Aysha MCH (RBC) [Entitic mass] 31.3 pg Normal 26.7-34.0 [facility] Comment on above: Performed By: #### C BC #### [facility] Laboratory [address] [place] [address] Akin Aysha MCHC (RBC) [Mass/Vol] 34.1 g/dL Normal 29.9-35.2 [facility] Comment on above: Performed By: #### C BC #### [facility] Laboratory [address] [place] [address] Akin Aysha MCV (RBC) [Entitic vol] 91.6 fL Normal 81.0-99.0 [facility] Comment on above: Performed By: #### C BC #### [facility] Laboratory [address] [place] [address] Akin Aysha Monocytes (Bld) [#/Vol] 0.8 103/ul Normal 0.3-0.8 [facility] Comment on above: Performed By: #### C BC #### [facility] Laboratory [address] [place] [address] Akin Aysha Monocytes/100 WBC (Bld) 7.2 % Normal 1.7-12.0 [facility] Comment on above: Performed By: #### C BC #### [facility] Laboratory [address] [place] [address] Akin Aysha Neutrophils (Bld) [#/Vol] 6.2 103/ul Normal 1.4-6.5 [facility] Comment on above: Performed By: #### C BC #### [facility] Laboratory [address] [place], [place] [id number] Akin Olmstead Neutrophils/100 WBC (Bld) 54.0 % Normal 43.0-75.0 [facility] Comment on above: Performed By: #### C BC #### [facility] Laboratory [address] [place], [place] [id number] Akinenio Ol[place] Platelet mean volume (Bld) [Entitic vol] 8.7 fL Critically low 9.5-13.5 [facility] Comment on above: Performed By: #### C BC #### [facility] Laboratory [address] [place], [place] [id number] Akin Aysha Platelets (Bld) [#/Vol] 333 103/ul Normal 150-450 [facility] Comment on above: Performed By: #### C BC #### [facility] Laboratory [address] [place], [place] [id number] Akin Olmstead RBC (Bld) [#/Vol] 4.64 106/ul Normal 4.20-5.40 [facility] Comment on above: Performed By: #### C BC #### [facility] Laboratory [address] [place], [place] [id number] Akinenio Olmstead WBC (Bld) [#/Vol] 11.5 103/ul Critically high 4.0-11.0 [facility] Comment on above: Performed By: #### C BC #### [facility] Laboratory [address] [place], [place] [id number] Akinenio Segundoen ER URINE PROFILEon 0 Bilirubin [Mass/Vol] Negative Normal NEGATIVE [facility] Comment on above: Performed By: #### I NFLUAB #### [facility] Laboratory [address] [place], [place] [address] Akin Aysha BLOOD Negative Normal NEGATIVE [facility] Comment on above: Performed By: #### I NFLUAB #### [facility] Laboratory [address] [place], [place] [id number] Akin Aysha Clarity (U) CLOUDY Normal [facility] Comment on above: Performed By: #### I NFLUAB #### [facility] Laboratory [address] [address] Akin Aysha Color (U) LT. YELLOW Normal YELLOW [facility] Comment on above: Performed By: #### I NFLUAB #### [facility] Laboratory [address] [place] [address] Akin Aysha ERUAHD A micrscopic examination will be performed if indicated. Normal [facility] Comment on above: Performed By: #### I NFLUAB #### [facility] Laboratory [address] [place] [address] Akin Aysha Glucose [Mass/Vol] Negative Normal NEGATIVE [facility] Comment on above: Performed By: #### I NFLUAB #### [facility] Laboratory [address] [place] [address] Akin Aysha Ketones Ql (U) Negative Normal NEGATIVE The [facility] Comment on above: Performed By: #### I NFLUAB #### [facility] Laboratory [address] [place] [address] Akin Aysha Nitrite Ql (U) Negative Normal NEGATIVE The [facility] Comment on above: Performed By: #### I NFLUAB #### [facility] Laboratory [address] [place] [address] Akin Aysha pH (Bld) 8.5 Normal 5-9 [facility] Comment on above: Performed By: #### I NFLUAB #### [facility] Laboratory [address] [place] [address] Akin Aysha Protein (U) [Mass/Vol] Negative Normal [facility] Comment on above: Performed By: #### I NFLUAB #### [facility] Laboratory [address] [place] [address] Akin Aysha SPEC GRAVITY 1.015 Normal 1.005-<=1.025 [facility] Comment on above: Performed By: #### I NFLUAB #### [facility] Laboratory [address] [place] [address] Akin Aysha UR MICRO IND NOT INDICATED Normal [facility] Comment on above: Performed By: #### I NFLUAB #### [facility] Laboratory [address] [place] [address] Akin Olmstead Urobilinogen Qn (U) 0.2 EU/dl Normal [facility] Comment on above: Performed By: #### I NFLUAB #### [facility] Laboratory [address] [place] [address] Akin Olmstead WBC (Bld) [#/Vol] Negative Normal NEGATIVE [facility] Comment on above: Performed By: #### I NFLUAB #### [facility] Laboratory [address] [place] [address] Akin Olmstead INFLUENZA A AND B AGon 05-11 INFLUANEGH SEE BELOW Normal [facility] Comment on above: Result Comment: Nega tive for Flu A protein angiten. Infection due to Flu A cannot be ruled out. Flu A angiten in the sample may be below the detection limit of the test. Performed By: #### I NFLUAB #### [facility] Laboratory [address] [place] [address] Akin Olmstead INFLUBNEGH SEE BELOW Normal [facility] Comment on above: Result Comment: Nega tive for Flu B protein antigen. Infection due to Flu B cannot be ruled out. Flu B antigen in the sample may be below the detection limit of the test. Performed By: #### I NFLUAB #### [facility] Laboratory [address] [place] [address] Akin Olmstead INFLUENZA A AG Negative Normal NEGATIVE SEE COMMENT [facility] Comment on above: Performed By: #### I NFLUAB #### [facility] Laboratory [address] [place] [address] Akin Olmstead INFLUENZA B AG Negative Normal NEGATIVE SEE COMMENT [facility] Comment on above: Performed By: #### I NFLUAB #### [facility] Laboratory [address] [place] [address] Akin Olmstead INTERNAL CONTROLS Within Normal Limits Normal Wi thin Normal Limits [facility] Comment on above: Performed By: #### I NFLUAB #### [facility] Laboratory [address] [place] [address] Akin Olmstead LACTATE/LACTIC ACIDon 2019 Lactate [Moles/Vol] 0.8 mmol/L Normal 0.7-2.0 [facility] Comment on above: Performed By: #### I NFLUAB #### [facility] Laboratory [address] [place], [place] [id number] Akin Segundoen PROF CHEM 8 (BAS METB)on Anion gap [Moles/Vol] 9.3 mmol/L Normal [facility] Comment on above: Performed By: #### B MP #### [facility] Laboratory [address] [address] Akin Aysha Calcium [Mass/Vol] 9.4 mg/dL Normal 8.4-10.2 [facility] Comment on above: Performed By: #### B MP #### [facility] Laboratory [address] [place] [address] Akin Aysha Chloride [Moles/Vol] 105 mmol/L Normal 98-107 [facility] Comment on above: Performed By: #### B MP #### [facility] Laboratory [address] [address] Akin Aysha CO2 [Moles/Vol] 28.3 mmol/L Normal 22.0-30.0 [facility] Comment on above: Performed By: #### B MP #### [facility] Laboratory [address] [place] [address] Akin Aysha Creatinine [Mass/Vol] 0.81 mg/dL Normal 0.52-1.04 [facility] Comment on above: Performed By: #### B MP #### [facility] Laboratory [address] [id number] Akin Aysha EGFR-AF SIERRA LEONEAN >60 Normal >=60 [facility] Comment on above: Performed By: #### B MP #### [facility] Laboratory [address] [place], [place] [address] Akin Aysha EGFR-NON AF SIERRA LEONEAN >60 Normal >=60 [facility] Comment on above: Performed By: #### B MP #### [facility] Laboratory [address] [place] [address] Akin Aysha Glucose [Mass/Vol] 111 mg/dL Critically high 74-[address] [facility] Comment on above: Performed By: #### B MP #### [facility] Laboratory [address], [place] [address] Akin Aysha Potassium [Moles/Vol] 3.6 mmol/L Normal 3.4-5.0 [facility] Comment on above: Performed By: #### B MP #### [facility] Laboratory [address] [place], [place] [address] Akin Aysha Sodium [Moles/Vol] 139 mmol/L Normal 137-145 [facility] Comment on above: Performed By: #### B MP #### [facility] Laboratory [address], [place] [address] Akin Aysha Urea nitrogen [Mass/Vol] 13.0 mg/dL Normal 7.0-17.0 [facility] Comment on above: Performed By: #### B MP #### [facility] Laboratory [address] [place], [place] [address] Akin Aysha Urea nitrogen/Creatinin e [Mass ratio] 16.0 mg/mg Normal [facility] Comment on above: Performed By: #### B MP #### [facility] Laboratory [address], [place] [address] Akin Olmstead XR CHEST 2 Von 05-12-2019 XR CHEST 2 V EXAM: XR CHEST 2 V HISTORY: Shortness of breath. COMPARISON: None available. TECHNIQUE: Two views of the chest were obtained. FINDINGS: The cardiac silhouette is normal in size. The lungs are clear. There is no significant pneumothorax or pleural effusion. No acute osseous abnormality is seen. IMPRESSION: No acute cardiopulmonary abnormality. Electronically authenticated by: Mayra DEGROOT Date: 2019-05-11 23:24 Normal [facility] DNA Extraction and holdon DNA Extraction and hold SEE BELOW Normal [facility] Comment on above: Result Comment: SPEC IMEN: BLOOD DNA EXTRACTION AND HOLD SPECIMEN TYPE: EDTA Blood Date Received: 12/28/18 EXTRACTION: DNA extracted from 3.0ml EDTA blood Method: GentQvanteq Puregene Reagents from [employer] ANALYSIS: DNA concentration: 571.4ng/ul Total volume DNA: 225ul (in TE buffer) DNA Purity 260/280 Ratio: 1.9 Total DNA yield: 128.6ug STORAGE AND SPECIAL INSTRUCTIONS: The extracted DNA is stored in the [facility] at -700C in the DS & EX 2019 box. Holding for future testing. Any questions regarding this sample, please contact [facility] at [phone]. VANESSA ALPHONSE 01/11/2019 Performed By: #### D NEXZ #### [facility] [address] [place] [address] SURGICAL PATHOLOGYon 019 SURGICAL PATHOLOGY Specimen #: [id number] Submitting Physician: ASHWINI SIMONS M.D. FINAL DIAGNOSIS Soft tissue, left posterior shoulder, excision - Lipoma with fat necrosis, see comment. SAMRA/RS/rw 08/08/2018 COMMENT Many thanks for sending in consultation this case of a [id number] with a lesion on the left posterior shoulder. Sections reveal lobules of mature fibroadipose tissue with intervening fibroblastic stroma. There are areas of fat necrosis with associated histiocytes. 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 Lipomas with fat necrosis can histologically resemble atypical lipomatous tumors. I do not see the typical pleomorphic stromal cells of atypical lipomatous tumor. If this is a deep soft tissue tumor (intramuscular) and there is significant clinical concern, FISH to evaluate for MDM2 amplification can be performed. Thank you for sending this case in consultation. Please call the Dermatopathology Consultation Service at [phone] with questions or if additional follow-up information becomes available regarding this patient. This case was reviewed in conjunction with the Dermatopathology Fellow, Dr. Clements. Fam Wong M.D. (Electronic Signature) SPECIMEN SUBMITTED A: 12 SLIDES ([id number]: A-J) CLINICAL DATA None provided. Date of Report: 08/08/2018 Date of Procedure: 08/04/2018 Date of Receipt: 08/04/2018 Submitted by: ASHWINI SIMONS M.D. Location: Diagnostic interpretation performed at [facility], [address] [place] [address]. CLIA Number: [id number] Normal [facility] Comment on above: Performed By: #### S #### See report for performing lab information. Encounters Encounter Date Encounter Type Care Provider Facility Start: 04-07-2023 End: 04-07-2023 ambulatory Abi Lazo Facility:[facility] Start: 03-03-2023 End: 03-03-2023 ambulatory ABI LAZO Not Available Start: 02-17-2023 End: 02-18-2023 ambulatory Lashell A Sajan LIME PULLER-C Facility:[facility] Start: 02-15-2023 End: 02-15-2023 ambulatory Lashell A Sajan LIME PULLER-C Facility:[facility] Start: 01-08-2023 End: 01-08-2023 ambulatory Lashell A Sajan LIME PULLER-C Facility:[facility] Start: 07-15-2022 End: 07-15-2022 ambulatory Trevon Pruitt Facility:[facility] Start: 07-15-2022 End: 07-15-2022 ambulatory MD Trevon Pruitt Work Phone: [facility] Work Phone: Start: 07-15-2022 End: 07-15-2022 Departed Referred MD Trevon Pruitt Work Phone: [facility] Path Spec [facility] Start: 07-15-2022 End: 07-16-2022 ambulatory Trevon Pruitt Facility:[facility] Start: 07-09-2022 End: 07-10-2022 ambulatory Tien Felix Facility:[facility] Start: 07-08-2022 End: 07-09-2022 ambulatory Lashell A Sajan LIME PULLER-C [facility] Start: 06-25-2022 End: 06-26-2022 ambulatory Lashell A Sajan LIME PULLER-C Facility:[facility] Start: 06-03-2022 End: 06-04-2022 ambulatory Lashell A Sajan LIME PULLER-C Facility:[facility] Start: 05-26-2022 End: 05-27-2022 ambulatory Lashell A Sajan LIME PULLER-C Facility:[facility] Start: 05-26-2022 End: 05-27-2022 ambulatory Lashell A Sajan LIME PULLER-C Facility:[facility] Start: 03-23-2020 End: 03-23-2020 Patient encounter procedure SERA PEREZ Facility:[facility] Start: 05-11-2019 End: 05-12-2019 Patient encounter procedure BIN DE LA CRUZ Facility:[facility] Procedures Date Procedure Procedure Detail Performing Clinician Start: 05-12-2019 End: 05-12-2019 Microscopic examination of blood, culture BIN DE LA CRUZ Comment on above: Performed By: #### I NFLUAB #### [facility] Laboratory [address] [place] [address] Akin Segundoen Payers Date Payer Category Payer Self-pay 2022 Medicaid [id number] 1985 Unknown [id number] 2.16.84 [id number] 1987 Unknown [id number] 2.16.84 [id number] 1987 Unknown [id number] 2.16.84 [id number] 1987 Unknown [id number] 2.16.8 [id number] 1987 Unknown [id number] 2.16.8 [id number] 1987 Unknown [id number] 2.16.8 [id number] 1987 Unknown [id number] 2.16.8 [id number] 1987 Unknown [id number] 2.16.8 40.1.519625.3.579.2.8 1987 Unknown [id number] 2.16.8 40.1.049572.3.579.2. 1987 Unknown [id number] 2.16.8 40.1.076189.3.579.2. 1987 Unknown [id number] 2.16.8 40.1.839748.3.579.2. 1987 Unknown [id number] 2.16.8 40.1.426845.3.579.2. 1987 Unknown [id number] 2.16.8 40.1.073744.3.579.2. 1987 Unknown [id number] 2.16.8 40.1.129141.3.579.2.8 1959 Unknown [id number] Social History Date Type Detail Facility Tobacco smoking stat [facility] Unknown if ever smoked [facility] Work Phone: Start: 1985 Sex Assigned At Female F [facility] Clinical Note 02-15-2023 Note Date & Type Note Facility 02-15-2023 Note Patient Education Ma terials Follows:Disease Scabies, Adult Scabies is a skin condition that happens when very small insects called mites get under the skin (infestation). This causes a rash and severe itchiness. Scabies is contagious, which means it can spread from person to person. If you get scabies, it is common for others in your household to get scabies too. With proper treatment, symptoms usually go away in 2?4 weeks. Scabies usually does not cause lasting problems. What are the causes? This condition is caused by tiny mites (Sarcoptes scabiei, or human itch mites) that can only be seen with a microscope. The mites get into the top layer of skin and lay eggs. Scabies can spread from person to person through: ? Close contact with a person who has scabies. ? Sharing or having contact with infested items, such as towels, bedding, or clothing. What increases the risk? The following factors may make you more likely to develop this condition: ? Living in a correction or other extended care facility. ? Having sexual contact with a partner who has scabies. ? Caring for others who are at increased risk for scabies. What are the signs or symptoms? Symptoms of this condition include: ? Severe itchiness. This is often worse at night. ? A rash that includes tiny red bumps or blisters. The rash commonly occurs on the hands, wrists, elbows, armpits, chest, waist, groin, or buttocks. The bumps may form a line (chastity) in some areas. ? Skin irritation. This can include scaly patches or sores. How is this diagnosed? This condition may be diagnosed based on: ? A physical exam of the skin. ? A skin test. Your health care provider may take a sample of your affected skin (skin scraping) and have it examined under a microscope for signs of mites. How is this treated? This condition may be treated with: ? Medicated cream or lotion that kills the mites. This is spread on the entire body and left on for several hours. Usually, one treatment with medicated cream or lotion is enough to kill all the mites. In severe cases, the treatment may need to be repeated. ? Medicated cream that relieves itching. ? Medicines taken by mouth (orally) that: ? Relieve itching. ? Reduce the swelling and redness. ? Kill the mites. This treatment may be done in severe cases. Follow these instructions at home: Medicines ? Take or apply eubn-hko-ttfryzp and prescription medicines only as told by your health care provider. ? Apply medicated cream or lotion as told by your health care provider. ? Do not wash off the medicated cream or lotion until the necessary amount of time has passed. Skin care ? Avoid scratching the affected areas of your skin. ? Keep your fingernails closely trimmed to reduce injury from scratching. ? Take cool baths or apply cool washcloths to your skin to help reduce itching. General instructions ? Clean all items that you had contact with during the 3 days before diagnosis. This includes bedding, clothing, towels, and furniture. Do this on the same day that you start treatment. ? Dry-clean items, or use hot water to wash items. Dry items on the hot dry cycle. ? Place items that cannot be washed into closed, airtight plastic bags for at least 3 days. The mites cannot live for more than 3 days away from human skin. ? Vacuum furniture and mattresses that you use. ? Make sure that other people who may have been infested are examined by a health care provider. These include members of your household and anyone who may have had contact with infested items. ? Keep all follow-up visits. This is important. Where to find more information ? Centers for Disease Control and Prevention: www.cdc.gov Contact a health care provider if: ? You have itching that does not go away after 4 weeks of treatment. ? You continue to develop new bumps or burrows. ? You have redness, swelling, or pain in your rash area after treatment. ? You have fluid, blood, or pus coming from your rash. Summary ? Scabies is a skin condition that causes a rash and severe itchiness. ? This condition is caused by tiny mites that get into the top layer of the skin and lay eggs. ? Scabies can spread from person to person. ? Follow treatments as recommended by your health care provider. ? Clean all items that you recently had contact with. This information is not intended to replace advice given to you by your health care provider. Make sure you discuss any questions you have with your health care provider. Document Revised: 05/24/2020 Document Reviewed: 05/24/2020 [employer] Patient Education ? 2022 [employer]. [facility] Clinical Note 07-15-2022 Note Date & Type Note Facility 07-15-2022 Note DATE OF PROCEDURE: SURGEON: Trevon Pruitt MD ANESTHESIA: Local. PREOPERATIVE DIAGNOSIS: Left breast mass, 6 o'clock position. POSTOPERATIVE DIAGNOSIS: Left breast mass, 6 o'clock position. PROCEDURES: 1. Ultrasound guided core needle biopsy, left breast mass. 2. Placement of a clip. INDICATIONS: Ariel is a 37-year-old lady who recently had her initial screening mammogram. It did reveal an asymmetric density in the left breast. She then had diagnostic views that confirmed the lesion, but it was difficult to see on the lateral views. An ultrasound revealed a 4 x 4 x 2 mm area of decreased echogenicity with internal echoes at the 6 o'clock position of the left breast. This was felt to correspond with the mammographic finding. A biopsy was recommended. There are no palpable masses. She comes in today for an ultrasound guided core needle biopsy. FINDINGS: The lesion was identified. A couple good cores were obtained. The lesion nearly disappeared after the 2 biopsies. A clip was left at the site. PROCEDURE: The patient was placed in the supine position on the cart and her arm was placed over her head. An ultrasound was done that confirmed the persistence of the lesion. The breast was then prepped with ChloraPrep solution and draped with sterile towels. A sterile sleeve was placed on the ultrasound probe. The lesion was then again identified. A local anesthetic was infiltrated in the skin and subcutaneous tissues extending down to the edge of the lesion. A lorna incision was created in the skin. The core biopsy needle was then taken down through the subcutaneous tissues to the edge of the lesion. Two fires were obtained. Good cores were obtained. After these 2 biopsies the lesion nearly completely disappeared. A clip was left at the site. Pressure was applied until the bleeding stopped. A Band-Aid was placed. A mammogram has been ordered to check clip placement. Wound care instructions were given. We will call her when we get the pathology results. Trevon Pruitt M.D. JOB #: [id number] [Electronically Signed on: 07/16/2022 11:39 EDT] Trevon Pruitt MD [Verified on: 07/16/2022 11:39 EDT] Trevon Pruitt MD [Transcribed on: 07/15/2022 12:05 EDT] [facility] Medication management note 05-18-2022 Note Date & Type Note Facility 05-18-2022 Note Entered by Bharti Hernandes on May 18, 2022 08:25:49 EDT From: Radha Hernandes To: [facility] [id number] Sent: 05/18/2022 08:25:49 EDT Subject: Medication Management Not Approved: Refill not appropriate, proposed to provider ethinyl estradiol-etonogestrel (ETONOGESTREL-EE VAGINAL RING) INSERT 1 RING VAGINALLY FOR 21 DAYS, THEN REMOVE FOR 7 DAYS, OR DIRECTED Qty: 3 unknown unit Days Supply: 84 Refills: 0 Substitutions Allowed Route To Pharmacy - [facility] [id number] Signed by Radha Hernandes From: [facility] [id number] To: Sajan HUGHES, Lashell Gifford CNP Sent: May 15, 2022 11:18:16 AM CDT Subject: Medication Management Due: May 16, 2022 7:13:03 AM CDT On Hold Pending Signature Drug: ethinyl estradiol-etonogestrel (NuvaRing 0.120 mg-0.015 mg/24 hours vaginal ring), INSERT 1 RING VAGINALLY FOR 21 DAYS, THEN REMOVE FOR 7 DAYS, OR DIRECTED Quantity: 1 unknown unit Days Supply: 0 Refills: 10 Substitutions Allowed Notes from Pharmacy: Dispensed Drug: ethinyl estradiol-etonogestrel (ethinyl estradiol-etonogestrel 0.015 mg-0.12 mg/24 hours vaginal ring), INSERT 1 RING VAGINALLY FOR 21 DAYS, THEN REMOVE FOR 7 DAYS, OR DIRECTED Quantity: 3 unknown unit Days Supply: 84 Refills: 0 Substitutions Allowed Notes from Pharmacy: [facility] Evaluation note Note Date & Type Note Facility Evaluation note No assessment information availa [facility] Work Phone: Summary Purpose Family History No Family History Records FoundNo Family History Records FoundNo Family History Records FoundNo Family History Records FoundNo Family History Records FoundNo Family History Records Found Advance Directives No Advanced Directives Records FoundNo Advanced Directives Records FoundNo Advanced Directives Records FoundNo Advanced Directives Records FoundNo Advanced Directives Records FoundNo Advanced Directives Records Found Chief Complaint and Reason for Visit Chief Complaint N63.25 Additional Source Comments INFORMATION SOURCE (unrecogn ized section and content) DATE CREATED AUTHOR 08/09/[address] [facility] DATE CREATED AUTHOR AUTHOR'S ORGANIZ ATION 01/13/2019 [facility] DATE CREATED AUTHOR AUTHOR'S ORGANIZ ATION 03/27/2020 [facility] DATE CREATED AUTHOR AUTHOR'S ORGANIZ ATION 03/04/2023 [facility] DATE CREATED AUTHOR AUTHOR'S ORGANIZ ATION 03/05/2023 [facility] DATE CREATED AUTHOR AUTHOR'S ORGANIZ ATION 04/10/2023 [facility] Care Teams (unrecognized sec tion and content) Team Status: Inactive Member Role Status Dates Trevon Pruitt MD Attending Provider Active Goals (unrecognized section and content) Goals may be documented in a n alternate section FOR RECORDS PERTAINING TO PATIENTS WHO ARE OR HAVE BEEN ENROLLED IN A CHEMICAL DEPENDENCY/SUBSTANCEABUSE PROGRAM, SOME INFORMATION MAY BE OMITTED. This clinical summary was aggregated from multiple sources. Caution should be exercised in using it in the provision of clinical care. This summary normalizes information from multiple sources, and as a consequence, information in this document may materially change the coding, format and clinical context of patient data. In addition, data may be omitted in some cases. CLINICAL DECISIONS SHOULD BE BASED ON THE PRIMARY CLINICAL RECORDS. [facility]. provides no warranty or guarantee of the accuracy or completeness of information in this document.
== END 2023-04-07 11:17 | disposition home or self-care (01) ==
LOC: LAB 11:16
PROVIDERS: PCP Family Medicine; Visit Provider Obstetrics & Gynecology
DX: N92.6 Irregular menstruation, unspecified (principal)
CPT/HCPCS: 88305

== ENCOUNTER 2023-04-21 09:56 | Outpatient (OUT) | payer OTHER, SELFPAY ==
--- OUTSIDE RECORDS SUMMARY | 2023-04-21 10:15 | XMS_ITS | CCD ---
Author Name Unknown Address [address] [facility] [address] [place] [address] Organization [facility] Care Team Providers Care Swimming Pool Salesperson Name Role Phone DELON DE LA CRUZ Attending Unavailable DELON DE LA CRUZ Consulting Unavailable DELON DE LA CRUZ Admitting Unavailable CHERYL DEGROOT Consulting Unavailable ADILIA PEREZ Attending Unavailable ADILIA PEREZ Consulting Unavailable ADILIA PEREZ Admitting Unavailable OSMAR FLORES Primary Care Unavailable Suzi Hernandez Consulting Unavailable MD Trevon Pruitt Attending Provider JUAN SLADE Attending Unavailable Trevon Pruitt Admitting Unavailable Trevon Pruitt Attending Unavailable Saajn ADVERTISING OPERATIONS MANAGER-C, Lashell A Primary Care Unavailable Sajan ADVERTISING OPERATIONS MANAGER-C, Lashell A Primary Care Unavailable Sajan ADVERTISING OPERATIONS MANAGER-C, Lashell A Attending Unavailable Sajan ADVERTISING OPERATIONS MANAGER-C, Lashell A Admitting Unavailable Sajan ADVERTISING OPERATIONS MANAGER-C, Lashell A Primary Care Unavailable Sajan ADVERTISING OPERATIONS MANAGER-C, Lashell A Admitting Unavailable Sajan ADVERTISING OPERATIONS MANAGER-C, Lashell A Attending Unavailable Sajan ADVERTISING OPERATIONS MANAGER-C, Lashell A Primary Care Unavailable Ezekiel Wasserman Admitting Unavaila Ezekiel Fontanez Attending Unavaila ble Sajan ADVERTISING OPERATIONS MANAGER-C, Lashell A Primary Care Unavailable Sajan ADVERTISING OPERATIONS MANAGER-C, Lashell A Attending Unavailable Sajan ADVERTISING OPERATIONS MANAGER-C, Lashell A Primary Care Unavailable Sajan ADVERTISING OPERATIONS MANAGER-C, Lashell A Attending Unavailable Sajan ADVERTISING OPERATIONS MANAGER-C, Lashell A Primary Care Unavailable Trevon Pruitt Attending Unavailable Sajan ADVERTISING OPERATIONS MANAGER-C, Lashell A Referring Unavailable Trevon Pruitt Attending Unavailable Sajan ADVERTISING OPERATIONS MANAGER-C, Lashell A Primary Care Unavailable Tien Felix Admitting UnavailTien Douglas Attending Unavailabl e Sajan ADVERTISING OPERATIONS MANAGER-C, Lashell A Primary Care Unavailable Sajan ADVERTISING OPERATIONS MANAGER-C, Lashell A Primary Care Unavailable Sajan ADVERTISING OPERATIONS MANAGER-C, Lashell A Admitting Unavailable Sajan ADVERTISING OPERATIONS MANAGER-C, Lashell A Attending Unavailable Sajan ADVERTISING OPERATIONS MANAGER-C, Lashell A Admitting Unavailable Sajan ADVERTISING OPERATIONS MANAGER-C, Lashell A Attending Unavailable Sajan ADVERTISING OPERATIONS MANAGER-C, Lashell A Primary Care Unavailable Juan Slade Attending Unavailable Juan Slade Admitting Unavailable Trevon Pruitt Admitting Unavailable Trevon Pruitt Attending Unavailable Sajan PROSTHETIST-Lashell RHODES Primary Care Provider RHEA MORENO Attending Unavailable SAJAN, LASHELL Referring Unavailable SAJAN, LASHELL Primary Care Unavailable Allergies Allergy Classification Reported Allergen(s) Allergy Type Date of Onset Reaction(s) Facility (1 source) No Known Medication Allergies; Translations: [No Known Medication Allergies] Propensity to adverse reactions to drug (disorder) [facility] Repository Medications Current Medications Medication Drug Class(es) Dates Sig (Normalized) Sig (Original) acetaminophen 325 mg oral tablet (2 sources) Start: 07-27-2018 acetaminophen (TYLENOL) tablet 650 mg apixaban 5 mg oral tablet (2 sources) Factor Xa Inhibitor Start: 11-30-2022 take 1 tablet by mouth once daily at bedtime apixaban (ELIQUIS) 5 mg tablet Indications: Atrial flutter, unspecified type ([facility]) TAKE ONE TABLET BY MOUTH EVERY MORNING AND BEFORE BEDTIME 180 tablet 0 11/30/2022 Active levonorgestrel 0.931240 mg/hr intrauterine system (2 sources) Progestin, Progestin-containi ng Intrauterine Device Start: 02-17-2023 levonorgestreL (MIRENA) 21 mcg/24 hours (8 yrs) 52 mg IUD 1 each. 0 02/17/2023 Active 24 hr metoprolol succinate 25 mg extended release oral tablet (2 sources) beta-Adrenergic Yung Start: 08-10-2022 take 1 tablet by mouth every twenty-four hours in the morning metoprolol succinate XL (TOPROL XL) 25 mg 24 hr tablet Take 1 tablet (25 mg total) by mouth in the morning. 90 tablet 3 08/10/2022 Active Problems Active Problems Problem Classification Problem Date Documented Date Episodic/Chronic Cardiac dysrhythmias (8 sources) Paroxysmal atrial fibrillation; Translations: [Paroxysmal atrial fibrillation] Onset: 04-17-2020 04-15-2023 Chronic Other circulatory disease (2 sources) History of cardiovascular surgery; Translations: [Presence of other cardiac implants and grafts] Onset: 07-10-2020 07-10-2020 Chronic Other nervous system disorders (4 sources) Dysarthria and anarthria; Translations: [DYSARTHRIA AND ANARTHRIA] Onset: 03-23-2020 Episodic Substance-related disorders (2 sources) Cannabis abuse, uncomplicated; Translations: [Nicotine dependence, cigarettes, uncomplicated] Onset: 03-26-2020 Chronic Transient cerebral ischemia (1 source) Transient cerebral ischemic attack, unspecified; Translations: [TRANS CERBRAL ISCHEMIC ATTACK UNS] Onset: 03-26-2020 Chronic Unclassified (1 source) Pre-op Exam Onset: 04-15-2023 Past or Other Problems Problem Classification Problem Date Documented Da te Episodic/Chronic Acute bronchitis (1 source) Acute bronchitis, unspecified; Translations: [ACUTE BRONCHITIS UNSPECIFIED] Onset: 05-15-2019 Episodic Fever of unknown origin (1 source) Fever, unspecified; Translations: [FEVER UNSPECIFIED] Onset: 05-15-2019 Episodic Other and unspecified benign neoplasm (2 sources) Lipoma of back; Translations: [Benign lipomatous neoplasm of skin and subcutaneous tissue of trunk] Onset: 08-08-2018 08-08-2018 Episodic Other lower respiratory disease (4 sources) Shortness of breath; Translations: [SHORTNESS OF BREATH] Onset: 05-11-2019 Episodic Other lower respiratory disease (2 sources) Dyspnea; Translations: [Shortness of breath] Onset: 06-24-2017 06-24-2017 Episodic Other skin disorders (2 sources) Mass of subcutaneous tissue of back; Translations: [Localized swelling, mass and lump, trunk] Onset: 06-21-2018 06-21-2018 Episodic Syncope (4 sources) Near syncope; Translations: [Syncope and collapse] Onset: 06-22-2017 04-15-2023 Episodic Urinary tract infections (2 sources) Pyelonephritis; Translations: [Tubulo-interstitia l nephritis, not specified as acute or chronic] Onset: 04-02-2020 04-02-2020 Episodic Results Test Name Value Interpretation Reference Range Facility POCT EKGOrdered By: Keily Herrera on 04-15-2023 [facility] Abner 04-07-2023 L Specimen: [id number] Received: 04/08/23 Status: SALIMA Kilpatrick Num: [id number] Spec Type: Surgical Subm Dr: Juan Slade Tissues: A Endometrium - Biopsy (EMBX) Procedures: HE/2, Gross/Micro L4 Age/ Patient Sex Location Account Attending Physician Ariel Salas 38/F LABELL [id number] Juan Slade SPEC NUM: [id number] RECD: 04/08/23 STATUS: SALIMA KILPATRICK NUM: [id number] CRISTINA: 04/07/23- SUBM DR: Juan Slade ENTERED: 04/08/23 [facility] DR: Ajit,Lab SPEC TYPE: Surgical DEPT: [...] in one cassette labeled A1. CPT Codes 48783 Specimen: [id number] Received: 04/08/23 Status: COURTNEYElo Kilpatrick Num: [id number] Spec Type: Surgical Subm Dr: Juan Slade Tissues: A Endometrium - Biopsy (EMBX) Procedures: HE/2, Shaina/James L4 Patient: Ariel Salas [id number] (Continued) Signed (signature on file) Micheal Napier MD 04/10/23 12[address] [facility] Coding Summaryon 03-04-2023 Coding Summary HTMLBase 64 JfmnycxvRDl0wUz+PGhlYWQ +UY7DULUvR56vaYMwrW9hE1 NMTElOSywgQVBQTElOSyIgb aOrSS0qtSHwJLCj IC8+FT0lAFMxUlcuzILex3P 5rMC4S04bvp2jKXgmlFD7PM KwUaOytbijj7ehzUx0LXnpW mluOyBt KQFcgB89RKR2eH58Pt97wUA zkJPfa0tqhEe3MfDgAVYlWR Q3vSskRIrwj3ZwIPSgW41hj IOnh4O2 CCOrzMlymKAbYiGzgYM5uN7 bXHrfarvin3xywqirRri8vt 30yODdk9T3aKJ8Q3VlebG1T GJvbGQg VneguNRGhF2qgdfft8ujpss pXxHaZZOxEDr9RLk5ZWCubG frIeTaJI18SXH8NTCrdfVkL 2FsLWFs iQmcDbA7j2K1Pa5MW6PHKrg yM5RGLSWEDXhulFM+PC90cj 79M6XaXhgaTpr4KAXiZKT6j LH6nE8k SDInSAwam5V4qMR4B2SvwhF uyx3et5dgLWDkLMhsW30mjA Xpr2N8DXNotGI5DTBhxJblL iBzaG93 Oyc+CFDhpYfoc1NbQauvl0y rz1wkhXd7GlooZVNkykXxcJ zgWZV1p2AtPp3kWJAphYO6h JN3zI9c YlDqOzK9WDicZ044QsVxmMV aWgqgK23kK0BoeEB+PHRyPj e7JELadGilEA8iM5IqRMBel mctbGVm eLvtXX0mVGGzzwdiBARdbE0 dJYViN2m8HnEdYgL6REkuC1 GmFAQxiiuwCj36lX2iIfOiO kA2OAnq X8LsrbG0GUZdrCReSHbbHEJ 0L39uw3B5HBRoRZZvNPL6lU I1tM7joDzsfwtjnHRhmNkyl mVydGlj VNviQTscD775PUKcmZqnZzH vZGluZyBEYXRlOiAgMDEvMj UvMjAyNDwvdGQ+ZHRfZFI5s WxlPSAn bQMqXPxtBr5uhBeecArfAD1 xQLEpwpzdKMHbuY0uXKSukZ VmzYtwHR1gPQTclxfwh661U iAxMHB0 RXMplWFhW6VtmQ6wDtMeCQL gMZClX8PfgBHbTObdR142GS ugBoE6APIptrZyS0XaSQTnk WduOiB0 a8G2Ih7Tf9FpwzgjD0ZbdRT gJaLwYizkWZz7E1SjTcallE I+PG81UTHoKJ60ZHx9WDE4z WxlPSdi CSUoD7OrsW3eJzJkMMQgFJA kOyc+PHRhYmxlIHdpZHRoPS aeEYNuXtHahRqjZJ7cEo0uU GVyLWNv nZnonBWiKyZno6odIBFqAFq pRK5qxSmbO2TfhGW7PKOru9 n3Td40G97iG8AqxXQ+PGNvb OM1gEG6 yN5yAdLnJhJ7VDpiA449IqT myEHyAimlq7nmw0jqzVs3Wd Z7IBVyiyTyzAdnSRX8e4JqA w57I86v IHdpZHRoPSIxNSUiIHZhbGl ehj1kmV9fMf1+OPAxnLL9vQ K3sZ6gWnZoSqY6RHyvW842F nRvcCIv Aejfp9rpb3tgkBb5YhIcANZ ysaYszXncEOW3x3SnMq27X3 ZzwUlsb2HlSyz8mk22aVKdw 1T4lKQ4 R4AdASVjuturtJFdvPbwBJ7 nRDCgebukPBSwrG6sQSDcD3 g2BhBmYbI7BMqaN1TfgbU8E GJvbGQg SIXzjAATbS5rlcpaq0ryssd qBqOuLNLmDHq5ONx4WONotT tgZpXkZWO0BkM1ACO8rZYfi L2zqOgl zkqmkC8hMoy+QMH8mHDlgQU PAB5eUuxtpWY+PIGwEQC5fA jpRQzrZUDxmW1xVRSiX3u0J iAwLjA1 DKseR8ZsleP4ZHAdfMIuXHH xyPDWlG5bafxus6cecndyGa AqVPJkBBb1IFe9YRZesGiiE iBsZWZ0 JsT1LHZ3sBPtjC7aoMvyqok frN6mRhq+KuxorNenCHE5QT e8N1MvRpt1TPCxwCgwLC4zq GFkZGlu Ck3lpAfggFsuKH9aZTPtbwo tm728CjJrl1rpJIYmjSRjHX tbDYZ1O32qn6L9RIOjUCWmN AF5yMI3 wG7hqKctqguewSAjxQumstD qjExbKCdfYRxvR587DXZdcQ mbZnEqQRb7W4XbGrg1NPYhm QdmTU8a uCAjOGhgWn8gzAfolWzlFB3 cCNMzcgyjb790TdBbe4liMF KbuKNhCFjePOU8H15gb0S7Y CMwMDAw AKP7hYL7gI0vjVolkifxmFV mdDsgdmVydGljYWwtYWxpZ2 82NNKgfRkzEwFzqZk5E5RfB qy8NYTw qOabDA7xwJDkQEfsLf1tgQb nrIlbUC5kZAStadgmt331Fr Iwd1qrIFLnjIPiRSutEME6Z 98vt5W8 WKWrIFCtJKU4vXA7mC7mmPc nbjogbGVmdDsgdmVydGljYW wfGVbuJ239TGHnqJfrQeHca GllbnQg NNqfCZo8S5SyPbkvuPH+PC9 6MGUgZG91zQHdiJEbt5wgqR n0CsTdOMPfGSY4eBltRPbti 3JkZXIt Q07ccLRfb1F9AHWfsCsxgYN zLjPsoFP2uN0dJEytzuyhk7 jwnsieTvfcc5vlmv42wW72L 29sIHdp ZHRoPSIzMCUiIHZhbGlnbj0 auN3hTm4+CUHawUC0oRC8oX 3iTPZeXnY8VOtkM239BcNdw CIvPjxj m6pxa8uihPs7OdQ8GLKleyO xhTvuSYO9v3QtZl38X84yQV dpZHRoPSIyMCUiIHZhbGlnb d4shB6y Ii8+YGLfnJW5gYC6cH3cVyU nLeQ1EYzpH557RvRkbMHxVc gwA19pS6CotNJ+ALEdUxz9Z CBzdHls ZP8ezLPzKDkaFq5xYOK9RdF aQpGiWEohE9YvZNTmwatdsa zvbZU9BRGhTTTraK81Nr0fo DogMTBw uQCZiB9tawyry3rndcioKtK eHXTmHYl2DPo1HEMipEftZf VxNPV7TcA7KIU5bDFtbU4qm Glnbjog oX3eK8NjGEUnpwgaFq81lS0 aOnLcAqL3JOasWbz+TUlMTE VSLCBTSEFXTkVMTEUgRTwvd GQ+PHRk PRO6rIqmPPxwUWPcbL2kBST yN0o5KlTfMyJ7DVyiR3MmSY XllmqaMt81hL6nXuJvQnV3J DydM1An slB5JSXmdSAdBQppQUT4S96 tk1B7IQAwMYMuOXJ3jAF8vB 1hbGlnbjogbGVmdDsgdmVyd GljYWwt HGpvI460MCIfsHfvZrYrJxA qAjW4RBr6Y3ObBif8XFRbsK wbXQ4rkXTjYSpbLa1gdIdnm AdlYK8c HHKhzrbeIWRhaV6xZVHbzUZ zvDqcWV8bZLAdavqch011Sd NxRXP1VSUthRJqV2SbkI6nW iAjMDAw MJAuP3SwvYEiWRixL428BLc wXrV5OGVzakEfW3SuSXEvqN jdAuF5m1R7Rn3dRBWZHBDxq zwvdGQ+ HGJjQBG3eQzfHFfeTXBmpH5 wQEImX9b7CuKbEaM1OLpmU5 PhHHJwombjDs12oK1pFaEfP nC6IPwn Y2MtchG7WBJcnOUeVJrqXBK 4X36za0J4CWWpGYKhAIE1qB N4pF8ywQjdzoehbUMxmLofp mVydGlj OQcmPVaeF548TKZxkJpeKvG FTUFMRTwvdGQ+KTZoXAA5oZ pyJYzgUUOaoW2mMOJeS9p7H iAwLjA1 UCheV9FuREUgherzFv72yX9 vIyPwUtZ6AZaeV4SeewP3ZM HvlJJqLSabDIV6G94if8T8C CMwMDAw LPF7nDG8hN2yeWagasvegRQ mdDsgdmVydGljYWwtYWxpZ2 67LOIlrSktGh3SGB65ZZ13Z 3RyPjwv dGFibGU+PHRhYmxlIHdpZHR eIHicNIBhKlRymFuzAB9vKs 9yZGVyLWNvbGxhcHNlOiBjb 2xsYXBz ARbuWX4mcTxuH8BgoHD9BIX ta4w2Yd15U73hW4NhzPO+PG UnqQU9gSA4uE6bLcQkXaG2S SjdR643 PxFbsDCtLskjk1zuu5bexYx 5CjOjPZHcuqIfaLyeYCP3f8 NuQs20T61yQZfnVZIqYWFzW CUiIHZh mCcudq1cbT1lRw1+PGNvbCB 2kAK8rR1oUcOfJqQ6AZdbA1 78UiTycZEoQyjmH53zN1Cja XA+PHRy Sxi4GRSxaHnzLT4ymYRbUXz cXv6vMQO2RuBmQzUpMSlcS7 QhASPsvjxohsiplPJ7KPTpN DUwaW47 Ks4mxZgrOs9kIHAnUZN3SAI uvMZaR0WfiF9uOvEjPNVhIB GqD7WmdTFmXWgaH477RXcxR wE4AQNu ksSgT3YxYYYpgJvkZxW9j3A 3Me9CdPkjbNJuXP9fFvYhQY u1J3TkMqe2YKJzoMncAT5om GFkZGlu Vg7bhFvvwRnqPU5iAGRxwvy xs740WbIqy0mlMAXwsQJtEE euQZA5R23iw7R7NNKuYIKaU KE9uIF3 jL0quWcsvevmhGWpkRobxaE fwFauDNjqAYavW490SWWxgI cbYdMVOlb6D9NyNvv4STOll PqpKH7q lTTaUZxkWp0owEdwdUbjKD5 lVNAmigtrc151OlZab3bjFQ FyjETkVBzjWRR6Y87lc0C2G CMwMDAw RVA3tNL5cG9qqUcpypcuyEV mdDsgdmVydGljYWwtYWxpZ2 98QBKkbEkfZx9IFev4K7IfF am8PIEp tCoaQS7jvQGuPRnrGx9xtRi cfJkiKD5kLSXazwwcc139Lz Qle5orGDWmnNTbHFmtXPZ6U 99df6S8 VQDcXCElAUC0oOE0hT9esXt nbjogbGVmdDsgdmVydGljYW ryNImbY888MCKtyZbvDwWia WVyOjwv dGQ+FQ64he82B2XzOvoqNbb 5UDVvEOU0wQJ9qG2pSZCuMW djb3N2tNB7A0QcikTfmg7ob 2xsYXBz ZTo (more content not included)... Normal [facility] Patient Handouton 02-17-2023 Patient Handout Dermatology Pityriasis [...] instructions at home: ? Take or apply ghrk-qan-wnimgib and prescription medicines only as told by [...] provider. Document Revised: 07/22/2021 Document Reviewed: 11/20/2020 [employer] Patient Education ? 2021 [employer] Normal [facility] ED Clinical Summaryon 2023 ED Clinical Summary [facility] ? Urgent Care [address] [place], [place] [id number] Clinical Summary PERSON INFORMATION Name: ARIEL SALAS Age: 37 Years Sex: FEMALE : 1985 MRN: Acct#: Visit Reason: Skin; RASH Arrival: 02/15/2023 11:21:04 Discharge: 02/15/2023 12:00:00 LOS: 000 00:39 Check In: 02/15/2023 11:21:04 Checkout: 02/15/2023 12:00:00 Address: [address] [place] [id number] PCP: Lashell Tanner PROVIDER INFORMATION Provider Role Assigned Unassigned Nallely Crow SAFETY SITTER Nurse 02/15/2023 11:28:03 Ezekiel Wasserman ED PA [...] Adult Follow-Up: With: Address: When: Lashell Tanner [address] [place] [id number] Within 3 to 5 days Comments: Diagnosis [...] verbalizes understanding of instructions given Comment: Normal [facility] ED Patient Summaryon 024 ED Patient Summary [facility] ? Urgent Care [address] [place] [address] PATIENT DISCHARGE INSTRUCTIONS Patient Information Name: ARIEL SALAS Age: 37 Years Date of : 1985 Reason For Visit: Skin; RASH Arrival Time: 02/15/2023 11:21:04 Primary Care Physician: Lashell Tanner Attending Physician: Ezekiel Wasserman Comment: Patient Education With: Address: When: Lashell Tanner [address] [place] [address] [phone] Within 3 to 5 days Comments: Diagnosis [...] develop this condition: ? Living in a penitentiary or other extended care facility. ? Having [...] at home: Medicines ? Take or apply ytwi-kzp-pblmcqm and prescription medicines only as told by [...] care provid (more content not included)... Normal [facility] [place] 024 Urgent Care Record [facility] ? Urgent Care [address] [id number] PATIENT DISCHARGE INSTRUCTIONS Patient Information Name: ARIEL SALAS Age: 37 Years Date of : 1985 Reason For Visit: Skin; RASH Arrival Time: 02/15/2023 11:21:04 Primary Care Physician: Lashell Tanner Attending Physician: Ezekiel Wasserman Comment: Visit Diagnosis: Diagnoses This Visit Scabies (B86) Skin (6NCutRMcuXE2sTfFr1rhzg ) If you received any narcotics, sedation, [...] sign any legal documents With: Address: When: Lashell Tanner [address] [place], [place] [id number] Within 3 to 5 days Comments: Diagnosis [...] and treatment you received today in the [facility] were for an urgent problem and are not intended as complete care. It is important for you to follow up with a doctor, nurse practitioner, or physician?s promotions assistant sales marketing for ongoing care. If your symptoms become [...] so we can reach you if necessary. [facility] has provided you with a complete list of medications post discharge. Please inform your director of primary/provider of your visit and for further instruction on these medications. Any specific questions regarding your chronic medications and dosages should be discussed with your primary care physician(s) and/or pharmacist. New Medications [facility] [id number], [address] [place], [place] [id number], [phone] cetirizine (ZyrTEC 10 mg oral tablet) 1 [...] hot then vomi (more content not included)... [facility] Reminder Messageson 01-21-20 Reminder Messages Entered by Palak López RN on January 20, 2023 13:38:33 EST order placed by PCP From: Palak López RN (General Surgery Clerical Pool ([facility])) To: General Surgery Clerical Pool ([facility]); Sent: 07/21/2022 14:02:43 EDT Show up: 01/20/2023 13:02:00 EST Subject: mammogram Reminder: Please call patient to: Please schedule patient for: repeat left breast diagnostic mamm Please ask patient to: Results Follow up Required for: Visit Summary For ARIEL SALAS Age: 37 years Sex: FEMALE : 1985 Address: [address] [place] [address] Home: Work: -- Primary Care Provider: Lashell Tanner Race: White Ethnicity: Not or Language: Malay Health Plan: 1?MEDICAID [facility], 2?MEDICAID [facility] Outside Recordson 08-19-2022 Outside Records [id number] TGTIFF [facility] Lab - AP Resultson 3 Lab - AP Results [id number] GTIFF [facility] Pathology Sendout Teston Pathology Send Out. See Report [facility] Comment on above: Order Comment: Lt br east bx 600, samples x2 taken at 835 Performed By: #### 2 [id number] ####[facility] (DEFAULT)[address] [place] [address] Coding Summaryon 07-30-2022 Coding Summary HTMLBase 64 NbxevevsSRa8sXs+PGhlYWQ +AF8VIDOkJ75qtFEfkP8sY0 NMTElOSywgQVBQTElOSyIgb xXzOR8enCReUJLr IC8+OU6gGDOrLeortDYpx7M 8hXX6K26whm5mHKpbdCX2DH ZeVnBymwfep1ggoQq7ZBdsD mluOyBt ZHDfcG18IZZ1jQ87Jh92tSU tmVCks4gsnMc4UzQoYAOsES D2cPruLBmie4FtWSNlP49lk QScp5J4 QODlsXhssRCjAnCaaHI6hF9 pVZyoalhdq1lwnddmUfc3tk 41bDClo3F6fYO1B6OtblL3Y GJvbGQg WwgumGEOiR2jizqhz0iejlm cJxYpSAMxMXr3JOz2NFBpxB phQlAkRD93XHL5HQRgsxSaR 2FsLWFs xYvaHjM3h4C0Hs1JS7HVVms qY2NYMSTBHHbfjOO+PC90cj 48I5EfNdinLvn8JMLsROV4e ZT4wM6i CJPsUXxvq1S7gCT8B2LzueR kpl0mk7elIOOkWWtqW20tiS Mfj1A1IKGrwZE2PFBnuBkeH iBzaG93 Oyc+BKNadKdto7TcWleuu6p fv4yzeNh7VceiOEChfiSolX qeYIZ4t4XsIn1tJNYcmVE9s GG0uQ5b UhGsHfM7JYyyV385McVfuDM yRcylB82qW4RjuRZ+PHRyPj o4NPBfhXxnDU1iT0HvMCXjo mctbGVm eTpwJE7kKCTjftxkYPSejZ4 iQHZxD4w0WlEnQvS5OGteY9 DiZZFjyvieRa03dN2fTyIvD nD4XUpq G7SnmcG4MJWfdTOwBBdkNQR 0B53rc0W3EKAtPVKgDKB6mC Q3qZ4tbQxnaabsfZIgmUokx mVydGlj UMblHNkeF642OGPrxPagHbZ vZGluZyBEYXRlOiAgMDYvMj IvMjAyMzwvdGQ+RAWnPNA9r WxlPSAn zTBeFUfrYj4kmZqczMifSV8 vYIRipqmrFLDrcX6qTLUrrE SueHuySU2rCGOmbrwwy858W iAxMHB0 GYVtjEVnV2GfnT5oZsZxOJW oIQOuO3EcwLHlTLpqQ860XD bmYgL6TAUxquDsS4FqBDQkx WduOiB0 v6W6Sw8Cg7XcxdoxI4QeaOV gPwGeEubyVYs5S2UjHfqhaO I+OY45EIQyXU02AWf0XPE8g WxlPSdi AHSdJ3JflV3qOeGqQZSgIPV kOyc+PHRhYmxlIHdpZHRoPS alFQSsRaIybSdkLJ7aCm7yZ GVyLWNv aOaqpSOmKuRjg8rcDYEvOIw dHE6brSgtQ0RgpEI9CRRdr7 j4Cs30A21wC4VtrZY+PGNvb JS3rVF5 xS5mVkVnAhB2MIitK059MhZ wvFHpSviwb4jkl1kreGo3Yx S0LJHfisPrpIpaRSL7z3VxK g45M19j IHdpZHRoPSIxNSUiIHZhbGl ios0iuW4lLo6+NQLzoGB3bT O7lY4uQpFvAnM4QPvqJ571R nRvcCIv Dxhxl2xim3ihkSj3YmNyDIE ovzBgqMgeAXU4q7AvNv35L5 HopRqcl2ByHtd6dh04jYYfr 3Z3lJF5 K2MhOOQpihhxaOPsyVpbIK8 gVIWftqznVTArsL2sCDFgW8 b6IvKjExI7WCzdY3KewuX8S GJvbGQg APSbaSPJqE7jsnkmw8vlpep wOwXtQQOkPFr5JQa9CQQceL hhAzMeQKT3NmN4OEQ2aDOml A7guAvu cveytJ3bHxw+YGT6oLNlfWU IDG4oOamjdIT+CDYrJAX9rG gcRRmbERHqgO9pQABmW7i4X iAwLjA1 OKepR6FdozL7KWAffGPzXXJ opYBMvY8ynhrrs5axjqqkZh RuAQCuEKs2UUv6ZHXamThvA iBsZWZ0 PzS5NVT2xOJitF4nuOdjnam tpP0iIdm+YvvnhLakPGB8TA v2F0XsHvx0SSUunQlgKJ4cl GFkZGlu Jz7uyQrkyOzvRK1yGNLdrwo om343UhVea5qoYIJbrKBpBO ppCXL4W61rq5S0CZMsDIYkO BG5nOA2 lR1jfEgqblimkOBimNecltM mfZjfFRarXCtkA435GUGpnD piKcQqXOh7J7GfDwg8NBQqz ZdkVP1p aWDaPEizUy4vrPackHeaIB9 jBXTzjrakt469HlUye0uhBV QmnYTxXFckGVK2K15zq7Y7V CMwMDAw ZHM9zVT1tY4pfRhkdmptsAI mdDsgdmVydGljYWwtYWxpZ2 96ULRppRnnTtUxzDe3L8AjY oz4RPWp vYyuYS7wyZNjPDgvBc2alEy ulIpkLL3uIYWxcgadl755Uk Hps6tkCWZdrVSzBFwuXWZ3U 50ap7E1 HBKaKJWiWWZ7nPZ0lL8jdJp nbjogbGVmdDsgdmVydGljYW nxCWnaK528OODsdGdwJeMsz GllbnQg MQumXZv3A4ZjVusphGT+PC9 0WOOqCL38jXAvaVUmi2uylM a0WjRlXIDrWBA5rRniBAcun 3JkZXIt I85zzOMpv9T7KXPmxTfalTJ uWzEnvVC5hU1mYOpjhqacu7 jtrusnUnqic9etur58qC60W 29sIHdp ZHRoPSIzMCUiIHZhbGlnbj0 qlR0hEy1+RFPyyST1wGF9dM 6iZDYaTnN1AUamN955FbXrc CIvPjxj v1wsj0qshYn9XeU4LKDekiX imBoaXCZ1z1UxQk67Q61vQE dpZHRoPSIyMCUiIHZhbGlnb x4wmI1x Ii8+KDLjcWB5kMR5lV7aPxC vEsL3MOteW275JrRzwXMeEa omV54aU1SciNK+KVJcIkv0A CBzdHls DO9foFYnMRmjMh1hYSB9XtG zBvIxVNgiS9TaJPUqatrlaj mzpWW6ISLxVKMjoR64Le6fl DogMTBw rHVTqT7eidrsz9aydtbeLwO oFHLsCVb2PRk6ODSxuVrtEd ZqKGO2ErU2DOM9yMMtxD9wx Glnbjog kJ3eF0WtFWPheueiCs33zB0 iGwYcKtF9ISvqWdj+TUlMTE VSLCBTSEFXTkVMTEUgRTwvd GQ+PHRk QEA5kOivRSvzSKUkjA5zVRC wE8z5NjNhYwG6KUymP6ByNX XzwernBy23cQ1cTpOwTgH7F CmhB8Dy pxI5BTGadPLzLUepWAT3R43 wm6X6ROGoGTWnRGL3hGA4aP 1hbGlnbjogbGVmdDsgdmVyd GljYWwt IQjoW034RWMbhRpaXwElPrQ xZyY2SJm5M8TjIfu3TDZhlE kqXN3pySKcOZtkBo0awQsau SzbCB0s JCDpxiekLAXqiD5nDTBwgXH ciLpxMM0zBOCgantve866Uh BpTSY5XBPmqHLiY4OqsA5vZ iAjMDAw XBMeT2BujCZoAHndO249ZXx qZeQ6RSDzrxWkS3WhRPAulQ olQoM6i1U1Tr5eMGWDURYyc zwvdGQ+ COSgKYE6aPzzGVaoVNSwdD9 pHKWyH8g7JoOoVkC1KIalU8 PhDEAfcijrXb97dP6bXpBlJ zM0NCtx J6UkxuC8HESllIIcLXjwKQS 4P20ps7H8ALAsNIQwMVK0lW P3kJ5mdCiyxqntcWZmnFbzo mVydGlj AIsdXYoxR985LBQhdSueQxF FTUFMRTwvdGQ+SZRvGXG3aQ trZZcaFIYueO4gPPJfH1l4M iAwLjA1 HXxyG6RoMTOjsjefMl39bO9 yUfYmAeT7FHtyU4WstfS3JU IieUIcZVzmXOC9I72jz4H0T CMwMDAw EKG6iVH1pY7yoQhozngpoUU mdDsgdmVydGljYWwtYWxpZ2 89MEYoiGbvIu9SQH78UO51A 3RyPjwv dGFibGU+PHRhYmxlIHdpZHR nPViqGJNwHuBhwEmpKP4uJm 9yZGVyLWNvbGxhcHNlOiBjb 2xsYXBz VTwcCW8hsZhnS6WutND3NFA wr3o3Mr29G74jY5WdiOF+PG ZmiVS9aBG7pM3uHxCrIcG4N NlzK156 BpVsqLUcGsxjf1jhy6zayNi 0UySkPBTwbrKbfWwfMGJ0y1 PoVe32C08nQCioHGVrYLFgP CUiIHZh zVjlml3fvZ0tMm5+PGNvbCB 1sLY9yH1eNuMtVxX0GUxmP2 23ZfGrfAThTfcrJ38fN1Tke XA+PHRy Imj3VVLcpNlwLZ6iiKLoWEu oZx1wGYM3KkVsSiQvLSsiR0 UyMPEefayivkjenEP2YCXnZ DUwaW47 Ci4vhNubPa4xMHXuCPD9RWF rfBTlA2RtpN3hRuSkDULmLF UpZ8FciZWsALlxE722CBjrE iS1GPYi qcWlP9HpCPHdwVyvQgZ0j8W 0Jy3McNazpXDgWX6wQtXwPQ b3P2JeFnj1EWTarXsfBJ3cu GFkZGlu Rn3bmOryjLobJB2fNAMiodv ow858GcCnf2cvIFVykDWjRI hlBCG5V31gv5D8BXGiTKUjV YV1lNI3 dO6ufItddsgumOJvtHaafyL ljJayLRajKGqzI356MCIgxF yxQoHIWyv8H9VwEil0GKRrx YmjWH9b fEQdPBvkNr8xtGtnmYikHF9 hNSWhpbusk690IkAwt5fiYR GthEHcQYzkPDN2F67xb5M2A CMwMDAw WLJ5gWM5sY4xkSvhvyttbFO mdDsgdmVydGljYWwtYWxpZ2 36QWEnsUvuTi4TVqs1M4QiN gu5OOEn yRzcFB0odDTsOLtlLf3ubAs pbLngHT9iGKJesjnmq608Hk Cse1ogABLelZCkIFmiPOT8I 88hl0Z4 GSEmTONrEOB2oOG9eU9vjMz nbjogbGVmdDsgdmVydGljYW yjYLbrE411UXIpqJueJiWij WVyOjwv dGQ+TJ75gs86V3HnWvlbWgh 4PHTxDGW3dSC8vN9yDKThTC apm2X5dXO3Q2VydxRwma3bx 2xsYXBz ZTo (more content not included)... [facility] Coding Summaryon 07-22-2022 Coding Summary HTMLBase 64 SxjlvmavRXi3kDh+PGhlYWQ +QY9WPDFzT67gbFPhhT4rV8 NMTElOSywgQVBQTElOSyIgb lReSI9fuVNdWVJa IC8+TO2gRZJsKmvgwECwv4H 5wEZ8K91fjj7sUGpsrVF7CM VzOnMlebbky2rurKj6RKcxV mluOyBt LDRugI38XRB5jB39Zq16qJP whNGnj5pysSr9GtCpBQUmXD M1fQjnEWmtg2WnYIOtT12um SQmg5F0 PIMuzJnlaUZuNjZomBX0tM1 jHFwunfapj8oueywjBmp7iw 55oUXez9G6lUC5J4MjduR6H GJvbGQg EhxncCIUlP5lfyvfj4ianoo dCrDwZNXcHHe3DKh6WMDuoW ckOfNuHO66DJW8NXWgurAaZ 2FsLWFs jEkhNwZ8l1Y0Ze5BT7SZDnh dY4TWDGRWQFrwuLH+PC90cj 17C7TxBjreQit9EZHxKQH1y SG9sX3d QHAjQXwyk2W9qMW3C8CkbpP kmq0li8dfPPCrAAbwI05xmF Yod5G6JHHojBB0OZHpjSdvF iBzaG93 Oyc+IFIolAvqz8IzNxvnq2p za9fqxWr5KfnzCZQjbkJozD xrNBN1l8QsHb7xRJFhjMS2o PU1xL8f InKhEbD6NBxcP654KrZzaEU lCfbzO28kD5GflIP+PHRyPj l3QEGdyUbxXY0eB4SqBLKgs mctbGVm tNajOJ9vIFRraftlRYZgfU0 cGGOmA7a9VxAzQkT2KFomA9 CtMGRfcyhhCe92qK3uBuDiO lS5DLcu P7SxtwZ6AFVobGHnZCopNZS 5Y55jd7R1OZArBVEmPRY0cS D5dR1ncXaeoqnhqUIwcSpdd mVydGlj KPwfBNwiW913QLMxuYcrUjM vZGluZyBEYXRlOiAgMDYvMT QvMjAyMzwvdGQ+LEKcPAN9k WxlPSAn bDFgRQorGj5aoTmsdHwaBW1 hFKFphzsrCICznE6sYXIqdE AocCzlQZ3xRQJwkkvxf904U iAxMHB0 ODChoJUjW2KlmV2uNeGqOOX nLGZgD8JukDWeMGhlW042ZY yvToM5NXFfsbKfW5XzXLMum WduOiB0 u7R9Rk8Pb8VeydbdY4EgbKD sUbKvAnjlVIk9F0AwFxcvyS I+CQ21LRCtBR36CUp1PPQ4b WxlPSdi ZOXkI1AvzJ2kBqWtDGXfTRZ kOyc+PHRhYmxlIHdpZHRoPS hsWBWdCaAblJucOU2lZs3cR GVyLWNv tSjgrGCvIaSwc6feJSOgBZz mGL6xoGtjU7UnuPD5TENhl9 p2Xq93T36oP1XpwMO+PGNvb HL7cNT2 lR9yJoSoMtB0WMgtN775CzT yxKXqDidle6vmn8albFd3Xr Y4REZnmkQrdIpwNKD8g5BrE f68K25j IHdpZHRoPSIxNSUiIHZhbGl clz7fjU1oEe5+OJLtnBX9lH T3eT0kIhCjUrO0TBouR472A nRvcCIv Zanev7awc9swhDf3VkHsURV oxzKclMzySVI6p3QzMe45S8 JazIwpt4ZoIvz1tx56iUTvv 0Q6nTW3 P2UgXKSzyskfkCUajUagJL1 mZNDvzudaPQPzzF2bGHJzH7 y7TwCdKnL9NIhuG9BcjaN1S GJvbGQg BUYtzUCKhQ0zrrkip6ptgkx nYiRqWCCdSEe5MUk4FLNfsA vhCfKgLZW4KjZ4GKR2fFVbv M5jmKqj uugedP7nTcr+GNS6mRHjsBU NPZ9jViuaaZU+UEFfIMZ1bH agNVdeICZbuZ7rFUZrB0h3W iAwLjA1 JUlgE7JqjtW2XUJwmLQnFEG feVZMpP8stzhfp9jefthgRw SiXQXaNGs6VYi2CYPpcCwjD iBsZWZ0 FwI8ZQT5mPWctL8vfRtdtbe crI1xQxk+PcwsaXixDTR6XP s1W9EwXwd6LHHbnVpsXX7jm GFkZGlu Nz2cpXhkoHlqMN7xKEHasvo rj605PnLkd5ugKTDtgUOeWR wqRFM0M66ha1Y1ABHoZBMjM PA1cCO5 rE5taVvfyenwvBFfcXeetcC xcQqeIUxqIWmmS866QFTysK miLyWhHYr6D6DhSbc4QZCun YvwNH8s cKSqAWnnUk4rfEqieHneNB5 vXUIqhoiyq928EfRpf6lgIT EuzQRgFAocOPM9R42eg1T9V CMwMDAw YAE6mLN3vS1mpYbbbnegjDC mdDsgdmVydGljYWwtYWxpZ2 54XRSuvZvfRlTkbDh1K4UdF ru8KMMj xHlqRC6xsWMaFEwpPa0jyXs zuHruUS0xULZagoruw319Fg Ber3hxNEQyfOBlNDolKCH2L 43uj3R4 BKMqVLTrJLU6lOK9jI6eaOl nbjogbGVmdDsgdmVydGljYW vqAGcxH733DAXidVvbLwYvd GllbnQg WQcnPIr6Z4KuBtdwaXW+PC9 5DWFuQN28zRUnkVFnu5hhhO s4UdKjRHOlMCO1tZghSNawi 3JkZXIt O45nfYZjk2O9GQCstQwmdYH yRvUjoUC9rT9wCEyirwzrc3 eqfmzuGgxrv7ozya56jC60M 29sIHdp ZHRoPSIzMCUiIHZhbGlnbj0 taN2yXb5+QMWdzSW6zKK8cM 0pXMMkWeX5WYujX063LnTyc CIvPjxj r5vyx0ghvAc6FzJ2AFEvqqR zxXwjKFB9u1KqHe29M57dRF dpZHRoPSIyMCUiIHZhbGlnb p8mnY6t Ii8+GKHgnZO3oID1tK7bUtR nMxO1ZFngC252JtVnwWFtUo ufD07yY2CqeIM+FOQtLyc4R CBzdHls UQ3vcRQcCHazYs4jGDM6BcX hLgFdJLeoT7BpYHQlhlrrvw bfbRY7XXDnGWDtqF13Ub6qw DogMTBw lCGLeT4rabzxr5zsnyfhSwW bXUIhEQk8JSq3LZHzqHhnKx EzAUQ6HnX5DRA4pJCjlX4dp Glnbjog mN6hR1YuNNPlovyyOy90tU7 jZtVlCbO2BPegEww+TUlMTE VSLCBTSEFXTkVMTEUgRTwvd GQ+PHRk UXR5yPxeXQgvXSBesC2aMGX rO4d4CqXmIdS8BOktL4RjVS KjuvjoVc33nE3aZkNtCbS6D BolM7Jq kcK1EIGdkGVdMUymMTN4A56 hk7U7PVOpVWBlRHE9gTO4aZ 1hbGlnbjogbGVmdDsgdmVyd GljYWwt LBdhR455RDDkhGslGiGtOdN iPxT4IPc7E2KgOkq9OMNitY ygMC8xbVGuNQbaMr9ntLeqg TthPK9x STDdpourWFPltD9eINCfnVS thKhuAS2wUPRnhllpl210Li OiWNU9VGBwoCWoY9DcmI7gE iAjMDAw IDYmB1HgeNEsLRilF128XFc lTlZ6RFScpsEkZ2NgVILmwW rcZkO7h5L1Sz0dWAUGDYAum zwvdGQ+ CLFgOXP1yIpuGStkGOUqtO2 hMHOpP8b3FvNoSkM6EOinF7 XzYBUaijdsCz06fC0jRvKzQ zR8RDac Y4SnnrH0WCLtgTZgREgnCDE 9L71jw3I9IDBpECVxMOM7bY B3jA0rhPittzcpaOHkxFbxm mVydGlj EEopBOwxY121MSQetHujQaG FTUFMRTwvdGQ+RFVcMRF7jT skSVhuZZMwjR9iMDOvW8c0J iAwLjA1 CLjbQ8SiXWRonmuyUi93jC5 eZqSlWaM0DOluN9PgmdQ6KJ XvgPYdOOwhKWN2Y61db5U7X CMwMDAw SKA4fVQ5rL2leTlzhvwcqKE mdDsgdmVydGljYWwtYWxpZ2 44SGFztYgeWz5CDX17QA69Y 3RyPjwv dGFibGU+PHRhYmxlIHdpZHR cQXwtUKGeMhXrcWelYG6yXb 9yZGVyLWNvbGxhcHNlOiBjb 2xsYXBz EOjpIW8vaAycX4AhgQP7VWE xd3h6Xr53A74vH4RjoYD+PG PhvBH8rDO1aI4vOdQsNcY9Z PjcJ259 ImKyuBAaXbjia9esy0vndRg 6LqTqXFXqozIgrNhjDIG2b0 YiVw67N35vICovGBEyLWNfQ CUiIHZh nLjdkc8weV6iVx5+PGNvbCB 8zRT8cO7zBxJoUcO0ZAbsC7 96CqBmxQPkEygwD27zK6Uxa XA+PHRy Why8CQYcrOsdAZ6owWPkMMz xZu7gDIW9XzTtHjMhGXpqW2 KpXDLxnnfwmucdmNA2ESJsX DUwaW47 Cy6poTouSu8rNFKtMQT0NST inGKrC5YxfO6rGkPlCEMzGO RiQ4ObyLVbSRobE637JZxaR dU3PXDf ncInA2KxDQQgyHdiEvA8p3R 5Id3YuKglyLJzUG9aXjVbPD n9Z5ExJkq0WQRsyKqdLV8eh GFkZGlu Ms1wqKvnsBwiGA1pVRSnrie cg692SiTgx7arVSCvmPDpEK ozEOG8S15ra3A9PJAlWENtT FK7lXW0 qI6syCansbzpxCYdgUqorqJ ckAzkXAgaZTwcP809WTDwcF pnNvEAOra9O2OwLuc1LZLqc LqeAI5f kMSfYDmnYg8ftOehjZnaAZ8 lFZKfmbirr019MvRfp0reBG SvtCRmBHszBFY4N81qv9J6W CMwMDAw TYY3wGI4kZ1gqJfwrfdfuSW mdDsgdmVydGljYWwtYWxpZ2 34ORNktOkeTw0KGzk9Z9RkZ rm3ZNHq oLqtHO8kcUCuEVriWt4awAi meVapZK7qTSQopagvu325Zl Ytp8xfAUJvgFFsWHziQUS4J 09hs3G4 VZWwCFEuIFY6rCB2vX7gjFz nbjogbGVmdDsgdmVydGljYW brMMvcY703WVQmqRjePuJvj WVyOjwv dGQ+WN46xb92Z1BmDguoSwb 7PWFeEHP5mYG2uK0mWEBuIR rea2X0kJY9V9XxmgLdzs2ma 2xsYXBz ZTo (more content not included)... [facility] Consent Formson 07-16-2022 Consent Forms [id number] TGTIFF [facility] Abner 07-15-2022 L --- Specimen: [id number] Received: 07/15/22 Status: SALIMA Kilpatrick Num: [id number] Spec Type: Surgical Subm Dr: Trevon Pruitt MD Tissues: A BREAST CORE NO CALCS (LT BREAST BX) Procedures: HE/3, Gross/Micro L4, CK5 6, ER, p63 Age/ Patient Sex Location Account Attending Physician Ariel Salas 37/F LAM [id number] Trevon Pruitt MD SPEC NUM: [id number] RECD: 07/15/22 STATUS: SALIMA KILPATRICK NUM: [id number] CRISTINA: 07/15/[address] [facility] [address]: Trevon Pruitt MD ENTERED: 07/15/22-1309 [facility] DR: Vitaly,Lab SPEC TYPE: Surgical DEPT: [...] Time: 0 Formalin Fixation Time: 9.42 Specimen: [id number] Received: 07/15/22 Status: SALIMA Kilpatrick Num: [id number] Spec Type: Surgical Subm Dr: Trevon Pruitt MD Tissues: A BREAST CORE NO CALCS (LT BREAST BX) Procedures: HE/3, Gross/Micro L4, CK5 6, ER, p63 Patient: Ariel Salas [id number] (Continued) Specimen: [id number] Received: 07/15/22 (Continued) Signed (signature on file) Mary Jeffers MD 07/17/22 1057 Specimen: [id number] Received: 07/15/22 Status: SALIMA Kilpatrick Num: [id number] Spec Type: Surgical Subm Dr: Trevon Priutt MD Tissues: A BREAST CORE NO CALCS (LT BREAST BX) Procedures: HE/3, Gross/Micro L4, CK5 6, ER, p63 Patient: Ariel Salas [id number] (Continued) Specimen: [id number] Received: 07/15/22 (Continued) Microscopic Description Two H E slides reviewed. The microscopic examination confirms the diagnosis. Immunostains for ER p53 and cytokeratin 5/6 are performed with adequate controls immunohistochemical and microscopic patents confirms the above diagnosis. Intradepartmental consultation with a second pathologist (JERRI) who agrees with the diagnosis. CPT Codes 74006, 23532, 78756e6 Specimen: [id number] Received: 07/15/22 Status: SALIMA Kilpatrick Num: [id number] Spec Type: Surgical Subm Dr: Trevon Pruitt MD Tissues: A BREAST CORE NO CALCS (LT BREAST BX) Procedures: HE/3, Gross/Micro L4, CK5 6, ER, p63 Patient: Ariel Salas [id number] (Continued) Signed (signature on file) Mary Jeffers MD 07/17/22 1057 [facility] [place] Mammogram Diagnostic Left .on 07-15-2022 MA [...] Fam Worthy MD 07/17/22 10:29 a Technologist: JAYLIN Assessment: Post procedure mammograms for marker placement Recommendation: No recommendation required [facility] Comment on above: Order Comment: Check clip placement Outside Recordson 07-15-2022 Outside Records [id number] OTGTIFF [facility] US Breast Biopsy Loc [facility] [address] Leson 07-15-2022 US Breast Biopsy Loc [facility] 1st Les Left breast ultrasound was performed during Dr. Pruitt's left breast biopsy. Please see Dr. Pruitt's surgical notes for completeness. Final Signed (Electronic Signature): Fam Worthy MD 07/17/22 10:30 a Technologist: [facility] Comment on above: Order Comment: Breas t mass at 6 o'clock position left breast Coding Summaryon 07-10-2022 Coding Summary HTMLBase 64 AavbyrahMIe0dJk+PGhlYWQ +QT2OQPFoC79atRHnxA8uG2 NMTElOSywgQVBQTElOSyIgb hEwZF7scVQyLEEa IC8+IW6yBKZhNekziGLwu1B 9qIO2T13iun1qLEcofQV5UL IqCpGdblhbz0tuxJc2TWzdQ mluOyBt WTKrkZ73YOF5eF16Wr69hRO fiBVdq8jzdSv6ZcGsPFSmTC A9eAttGYmhh1FkNSJoE85iu CFyp7H1 XDRstKnktQPeTpJdeOQ7mV9 wDKinxjjhj1qruyyoMzh9di 04xMUza0E6gRN8P2UkrzS7I GJvbGQg YthzcGETaE6aocmkx2qruha bRqPdKLVwMOv0YFa2FUAljZ wmQgDuZR78MXZ5JHAeziXaH 2FsLWFs dRaxPkJ9m3P8Ap8ZH9JKCru aY3OWHJPPYSoonMC+PC90cj 17H0SiHcicAgh6JQLsNEF5w DF7hW6f CSBbPCruq4R0iPD2I0WsvdJ aee3ig4elZOBaXCzjD29tcU Rwn1F8SLZwmDW3OJIpvCwqA iBzaG93 Oyc+NXKyqKdjr2CaBzitg2i ao4reqQe1UfduWWTbxbPwyU anULQ6n0YpHe1nCJUstJF5y NX5uB9t YbFlAhP9UVpeG316TdOxbXV qHywmF26lT4TisZY+PHRyPj l6IUWorVugAR2rD9NkHUKon mctbGVm tScqWB3wTABpdifyPHMqmD8 dJJEzV5w8HsCdWyD2JAhqD6 IvAXRkxvljNe74gP7xXiTwI fC8AYri T6CtpdW6RJKrdRXzBUxoBKL 9G82ht3E7EPQsPPDsYON5rO P6eF4bzItleyidjXEkdNmdt mVydGlj EZzdXOmzI289MVTqpNwmJbH vZGluZyBEYXRlOiAgMDYvMD IvMjAyMzwvdGQ+RNXyVBX0h WxlPSAn pXQvJAngNa4mgUlvdKhuMY0 iOOCorhfoYDNalG3lKJZqmW KtfTteKH4mOGOujgnet418R iAxMHB0 IZRtqONiG4QisT4zWgHfRFU lMOFtM1UwiVQvORemN717HD tcXgZ3FKUqlqNfL6BiXLOqv WduOiB0 k7P1Ii8Tl4UhoehnL2CtiTT gEmUdPwzsFZt7V7AwNngqgJ I+OA61PRJzDY65RLj2ZQB4f WxlPSdi SVSlN3HkjA5kZlWjROQsOBQ kOyc+PHRhYmxlIHdpZHRoPS qvVZAxWtNyfCtsAD4zJc9oO GVyLWNv hQalwAGkLiGpp0pcRTToXQs zAB8llSgrH1ZdbVE8QUEar7 d3Tb11C62uU8HkwOZ+PGNvb LR5tGG0 rS6gJaKjJqI4JQjnE916KiH xgUUrSdxli9inv1smnGq7Tf E9DCPgyuDmqKnaAZS4k3FzF f05Q11m IHdpZHRoPSIxNSUiIHZhbGl ugi5osR0gMa5+BEGtbCK1nR D4tX1zBgBfUfO5XPltO123S nRvcCIv Vnbzf6rcx5hpbHy6UuKcEBY jxdMftCgoMKQ6h7PhKi53A2 OmpCtge1KbXbg7kl96nRBlr 0K7eWP4 N5WsDCDjhzvsrJMtsClvFQ0 hZCVacfqrPXKwrB7xROGrT1 d6IyQdKvD5BEnyE2XyovD8Q GJvbGQg DRShmAMUnX4ykbfnc0pexou bLiElLXMxRRe5PWk5HIElbQ uyTkEoDBU5ZsZ3NTI0fDXlf Y6pwGsx vgaxiD5rQve+NNH2nWDyaKT HLJ8gKfmmlHG+ZSAmKQE1wL jyOZdjEDGjsP6oLWTdG6y6W iAwLjA1 YOveX9StfoF1WYQfgOSoKCJ ycJJHtZ1mikipy4laaisgVi SxGQXoBRm3KAk8ERLcoDebW iBsZWZ0 IcS7MCK8pZEteZ1lgMnvlli eoY1lWsy+MbabzJxnUGR7TN n4O8OuWqc0FQGhrGkwDK7pz GFkZGlu Lg7ksCuwxRcjCH3uGCBcluy lx048InZzh5caYAYkgFGxPQ thMJT4B63qp5D5NIEqIKGuR AG6gQI3 iA2joNnnruylbEBleLcupzC rvRpwMOmuMUfcV547GNCbfQ tmNcKqQBj7D0NqNqo5HTVpg ZpuRT2j wIRnFKdwLv6haTeliWdlCM1 pHNKfycdec749LeChq5edHB VerUZkJPdtEVL8G42hd8C6L CMwMDAw DBQ9wAT7eW0nxAgyhjdrwBY mdDsgdmVydGljYWwtYWxpZ2 58JAXqxPnwObTcsRe6I7CbT up7PSSf wJhkIX0xtVEaUXmyEz7oeFz cuPxzRW3qYXRiushob265Rp Ssg7naQNLrgWTxFNpwPPH2R 42zh5O3 PZJeTDMxHDO6wOX4bP5klPc nbjogbGVmdDsgdmVydGljYW noXRseQ155FTCipMyvTvJwk GllbnQg UWgmNNi8W7AaJmgisFW+PC9 6RAPqFH31qXNxwKDjb2pnuP o6NjVkRPIiKRK6uYfqCFupw 3JkZXIt J02rlYUnm8A9ZVNgoTzizNS qXnMqwEV3vL2zMZxveddjn7 mqwvgqNzkgp5emdp78vA26E 29sIHdp ZHRoPSIzMCUiIHZhbGlnbj0 thX0rCw2+KRSrhTS7lQX3xZ 7nDKZjOaC3RPqnP680IqHlm CIvPjxj u2uih8cjnDf0VsN7PBJbtvI gfXoaKLQ9p0BuHh71L98hUI dpZHRoPSIyMCUiIHZhbGlnb q2kfC0t Ii8+MQJopCO1oXY1tR3eWmH lFaZ4UPobY077InRsxLQeKe zhE74nC3DhoID+LEOdZwn7Z CBzdHls YP1pxFMoPEceBq6wPIW8DbQ gAvSqHAbpJ4YrBFOssldmov ffhJK4PYKhHMXaiN32Do2ak DogMTBw zINKkN5chtsde8wcypywNtS sYHQdPUr8ABp0GIZboFsdLp JrPWN0BdB7ZJX1nJIbkD1fk Glnbjog pK7bP7IdPFQfdmlyQc67zF1 yGlEgRlN5XHmuHad+TUlMTE VSLCBTSEFXTkVMTEUgRTwvd GQ+PHRk HLE6tSpwALrxPTTmdW9jLEC xP9w6PkTsIwF1RBqoR0LsIC TziqlrLy68eY8xYjAyPqH1G ZgoO8Cq jeX3ZVCmaODiZKgrOSW4M16 jf2X4PXNiNHElUMJ6eWH0hV 1hbGlnbjogbGVmdDsgdmVyd GljYWwt VIkgT646BDNlrValRgQyGdU qJqG3USt6T7KiReb9ICColE xtVY7yuKHdNImkCe8rtNpms SnfOJ1s CAMbqleuOOYdwH9vADNqyYV jpXyjEN3vLZDfxbkkg073Op LhUZX8RZQiuONjA3VwlB9kE iAjMDAw UVDrA5QabKAePIwsD675MDl eTlD1LRAuijMpC8PsVOQahC hpSnV2d1V8Aq8dWNFGNHCgg zwvdGQ+ UEYzAIE6fZvnQChmFQLniA6 lREEzS5v0IyNjEsR3UBqhF4 NdFTBpqrpoBi21fY5aUcCzJ sE3LUgs L5MdnqK8EAIcfZYhOYfwUUG 8W80aa1S2GLSbTDNrPYW8fZ U3vQ3ljGjhfbprqRSbuYtye mVydGlj MTreZAkxF052EKMspRhrJfL FTUFMRTwvdGQ+WUWmFWB0fJ fxRUcoNCXlgK5nGGOwS4z4G iAwLjA1 EWeaD6MfRKOpqabtBv77lJ1 lSzZwPgR9KBgwW1CrtpF3AU SvfYSgAVmtIAR8G11gd3S2Y CMwMDAw GYU0tVO0tE7huXnyvphmxGF mdDsgdmVydGljYWwtYWxpZ2 03WPZpaEfnPz5IUS57ZR24Z 3RyPjwv dGFibGU+PHRhYmxlIHdpZHR qRMfjUXOrAvOfjRudNY9gOf 9yZGVyLWNvbGxhcHNlOiBjb 2xsYXBz CVnmOL8jkCciP3LpfQG9CZK yl0d4Ie84B38xI4PdxIJ+PG VvvFJ5rTD4eT1gCkNmUoN6Y HccH798 KmFqwGFaYjvzc9hni7agnKr 7EyKnIMBatnUumVtwXYX2x9 LtBi13S31pCPvuFHIbNQXsP CUiIHZh qCtast1hzP7gQm5+PGNvbCB 4pOE5bX2bKzFjLjH2LEuiO1 92TzJqjCXqZnxyO77kY2Jbf XA+PHRy Nnb1IVXbaXerVV8ckZNaMZe pEj4tHEJ7CcCoFoBpKIldN3 NkYZZorwctrmiscNZ6ZBGrT DUwaW47 Yy9cnXdoIe4yEDRvSZD0IAI hqMRhI7RqtU1oMnSjJCIkEF UdF1MljQMxRBykP533PCtdC aX0ZSAd zvXhM1XsKHZuxZhiXqG4j8U 1Dw5EtAtizSRjAR8dDdVyAO z8U0FiVyq6IVPsaKqrUQ8sm GFkZGlu Dv2zgDrcrEydSS6wKAZyfoe cs501HxGwd6meHNKxnPGaZH btBCC7C79se7S6DAXvRYVwO JV4tST8 aM2wgUpjdkiezHAwsEekbzR xtIviOCxhAZtvY966SMCicV zlBjNHSmc7E3DcOxo2WOLqv PbhXA6c bYLyVWdfLo2nvRvrvYmfTH1 uJSCsmxncj095NoPez3mkQP NrzUDiDMpaMVQ2J58en3J6J CMwMDAw AHU0uXO7oS9kkMtditpunBP mdDsgdmVydGljYWwtYWxpZ2 77BELcmLaeBq0JSsv3T8EgA tl8KBSg hBvgRS5aeYVdBFtkGe2ndZz gxFidEO2iRYRclfoad587Jr Qsy3jbZXHtcALwAFrzLYD8Z 82gs9S3 LNVaDHEnZQE7zSY9pY6ruKa nbjogbGVmdDsgdmVydGljYW azWUgfA296HATauTbpUiMgq WVyOjwv dGQ+TG89em84N4PuQqsyRvn 2IGUbEYL8iNS5pZ3bOWSxKW uno7K0bTX8N7NyfdDeic2tt 2xsYXBz ZTo (more content not included)... [facility] Coding Summaryon 07-02-2022 Coding Summary HTMLBase 64 LdbeungcVCy5dGp+PGhlYWQ +DK3IYTTxC38yaFWgvJ9mF7 NMTElOSywgQVBQTElOSyIgb vFlAV2utHBkXZPg IC8+JH8pHYCyHexotQZei4E 1sSC5C50nwg5pHFcnyNV0CV GmApGyxnwli5bowWn1AEcpL mluOyBt SGDyrR36OUM2mL26Qa58bGQ aaFHbu5bnvDc0EyBjLZWqNS U3zFrvJErhg0QkSPJkM15sr JIcp3M8 ZOKhhOrquHRxUsQscOT3pW3 kDXuzkvcjk0kkfkbsCnq3yi 75lTZfp7E0dKF6B0DisvF2R GJvbGQg LmbpxKSPlO2rhucow4njdoq qTtKuGPLpHXq0GPg9VFVptS djNpKjZZ42RHO9WGQqcfSuD 2FsLWFs uNfxGzA8d9J3Rc1TG5ARVmk oV7MHBJPPIAehfKS+PC90cj 47Z5LwUkxbUbh1YIWeBIJ6g MQ3kS3i GDZrRNevd0D3oEP6W0OsqlI cpp8bh0gmKJWyULeaR78xhX Vnd5Y9PZRytMO5PIQezPdhW iBzaG93 Oyc+LVWptBcwm2GwPgqna3m sg0rbcRl5PybiOAJsdpUnxW gnUXL2d3FiJn4eQUCkrDT9k UH4cE4j WzQuCoR7NSebM099MyBehMU vQshgV95lO4TewKH+PHRyPj l0FSRuiXhpOI5cG8NiXBLzy mctbGVm yHdgUL8kNSOhrtwlAPKdoQ8 dWIYdN6f2DvUdLtP0LEolL8 RxXTGdpasbLv29wB6pToJoU qC8AOtt S5KkzkW3MZNwtYNwOYxqTCN 8Z74wl9Y4LLGqLQHvLVQ3oX O8aO9fpLnvmrjxsHWksUcjd mVydGlj UZteGTiiF433WRScpEywRjI vZGluZyBEYXRlOiAgMDUvMj UvMjAyMzwvdGQ+ZXJgBDT0t WxlPSAn pJEgJJepNc4klEckvFbaTQ9 iRRDmasrlATPbaI1sBEMyrW TdzDcaRT8dKUEpiksha791H iAxMHB0 OWVqoYJeB2AotO5kXwWkWXJ tRRQiL5VjbLHcWNrvK579YI zkFhX7GGTonrZiL8XwOXUnk WduOiB0 v7Y9Za1Yr5EeomdqY8PwgEC nNxMrDwekQLq3D8RtYhstuB I+UE60NQHiNV32YWy8WBB5c WxlPSdi NHXuI3JiiN1nSbSbVTBzEDS kOyc+PHRhYmxlIHdpZHRoPS npRUXjFuDezPloOF7wTa2xO GVyLWNv gYnogRStLzFio5eyKWNjHTd rVL2ukYotE9CkgZW8KFQlp3 j0Ue57W61fO8HmnCM+PGNvb WM8uNX1 dX9pPiRfRkZ0TWhkT292LyO wwZAxXwhsq9zfb4ljvKi5Ul P3TEBbgxBkyBpdLXI0d7LjO e14V82v IHdpZHRoPSIxNSUiIHZhbGl ctn5kiW7kLa3+BADdtRU2xJ H7qE7mAuBmHpB8QNwoV308R nRvcCIv Iygix4qwf8xqvIl0IxRuQHI ryhGjqSwtMAM2i1RaMx27X8 FvpRubw7XmNtj4yr46gHCmq 4I7qFL6 M0QxRTFtkbzcxBSivHinCE1 yPVZrnuefNEPypZ3wOELbU5 c9GrIvVoP5VUroS7EjqqH1N GJvbGQg PFUizYUOpB1xcxdcm7umgkq cLbRgRJLxNVl9ZPi8HUHaxO twTuOaTOI0DjT6XLK9jAWds U2gdHyo tpnmvA2nTod+CLX3lNMukRI HRU4dXfpnhJM+UFMnXCH0rS zwOKhwDQAjoO2tBQLeS1p5Z iAwLjA1 VUfxE6UwizN5FQXxwOUrVQQ skKGWbY6iueqas5bsqrgePo RvWRTrRAe8GGn7CWQlcWdxZ iBsZWZ0 TvQ0VJX3wPDrqS1lqCfqvwp qjS6zStr+DfvgdCgdKIM4EF a3I5QhSxs5TVWlbZzrLZ6zf GFkZGlu Gd5pgWhdlSlsGQ4pXWDnxhr ei588HdUpa7lrFOYhqOUmJL pcGWM2T65fl2O1DKPmYGKhZ YT4xGH3 pE7ryEzwgnbyrFJcbGzbbiD unNutHUasRXjuP316HCMxvN fjZnAiVTr9U2ApUhf4WCHhb MqwMH9e dMJtLEjpGp7lvHxveRpmKO3 mWNDdfccoy931YrBlc4chWF FptOEuWGlzIKL4Y20eu0L2C CMwMDAw PLO4cPQ1bI9fjQpjoekugJW mdDsgdmVydGljYWwtYWxpZ2 23EQFzhXlrYpRvmKo2P3XiQ oa1TSHu pEjkXF2zbGWaCNnfSg6abFb itGwlJI1cGUUkruooy344Lc Iyv4wxMSPzeSCeISyhOHS2L 56uq9S1 KXRzZSPwSGN3nSN2kQ6lrEx nbjogbGVmdDsgdmVydGljYW ewERveX289CFDfxAhdMhOdt GllbnQg HKarRLn9P9KhTagcoTV+PC9 0WDMkKJ96pZWoyXLjf1ohjJ i4TxUbZYFhQTD6wRysMRugk 3JkZXIt N87jrOZxj4F7HKFarXodbUH xGmMquWZ0wO3yFHdkcauwx8 mxdrabTjauy0cfqn71tJ20A 29sIHdp ZHRoPSIzMCUiIHZhbGlnbj0 gnE9eKw0+EAIfuKP1vXN6dE 0zJOGiVlO8NZstV125ElGqb CIvPjxj h3bpe1ahrDy9KwG2ZYZjolF baJnrZZN6a3HuAs86A60ySZ dpZHRoPSIyMCUiIHZhbGlnb z9bmA4x Ii8+VJJgxBW8jPF7tY0yWwA fZrO0DAtgX398OvJhlZViGk urI18uY9DdeFF+WAMwJvg8M CBzdHls NC1dmAIwSAdbYr8gRXU4JxG jSrRtCVcsR2IrEIByadvvmz zwzIJ8SRXsOKTvwN92Sv7om DogMTBw uLOEpE0mrbyok5gvwqglWxJ mQBMsQIx1XLm1OEHrjOhiNe TzDYA7HrQ6KIU8rPNmmR2mt Glnbjog aQ8bS3TzEOJxlhhbCk08zN9 jYrHkMgB9JXmnZpk+TUlMTE VSLCBTSEFXTkVMTEUgRTwvd GQ+PHRk GYX5sMzpJZztCVEpjC3yTJE iI0q2AnNuQkA3MCvwC8ZlWB XiemqyXv21fU0yZcStDaS2Y IeuQ6Ax vmP2BWLqyLEgCHpnEFV3W08 rl3N0BGPvCNEeIAO0nOI9iI 1hbGlnbjogbGVmdDsgdmVyd GljYWwt CHdkC653FWKliYyzCsAmPsC jLjK3EPw5J2BaIjl8DKUxzQ ybQO8zcYLiDLonEw9gjMaer PuxLK6i HTGwwmcwRHLscD2aCPPibXP npCmjOC5qZJZntkwcr161Ub SyNJO8IMCrrJUhS8TimX7zL iAjMDAw QAPrG9VqgOHiBDoaX816RUs jUvP8BVZsupJkZ0OzCDZvaJ oiIdZ9s9W1Tc5jKBBVPDCmp zwvdGQ+ GSDaJFS4kWgzKLotICWooU3 mHRIyM5t6AvBwTlL4YTxlY3 LpBVBjzuipWl45rT4mLmQqW gH9CJef N4JpofP3WGKiuTGyDRbzCMA 4P41ih8K9BTDlBWWdPII3lP Z6oW4rcQyyfdbonZDttOsgc mVydGlj COotASgoU158IZYcmBiyBbQ FTUFMRTwvdGQ+EDSiMFG3gM poSGxmCOTeeD1aDAGmH9p4J iAwLjA1 JDguN1GeAZSekzdlJu19kA3 lSqJtPoH1CFrnB3GdfwS7KB JexDPcHUxbLMJ2Y55ed1K4F CMwMDAw XNO6sFQ4xQ8iiMsrybckiRU mdDsgdmVydGljYWwtYWxpZ2 13YILabFcgPf8WPQ95QW87P 3RyPjwv dGFibGU+PHRhYmxlIHdpZHR dILirGQMjXwWrlYwiRY8gSy 9yZGVyLWNvbGxhcHNlOiBjb 2xsYXBz ATzvUV8buCblM2ZosGD9KXP mr9p9Ts38B75fJ5XjpJV+PG ZdqLU6mJB6dX6iZwUaQnL1E JzkS195 AbXcsLJfWrnre3xpj2bgaDv 7QxStRUKhwpWosPlqUIC9n2 MfOi21T25sCTybSNLfNQIoC CUiIHZh hPhxch0kqG0pIb8+PGNvbCB 1tSY5nE9vZhEcUsQ9SUjaU1 49WxUliDUeNiufB29fJ0Tew XA+PHRy Nqj4KFAeeMevQI8ymMYwERg oSd7iSTA7MzVqUqZpKSptF2 AtRMXbvtfhidbtmPY3VLVqN DUwaW47 Ci9xeOvvNl4yPSLiAOL4GHA tgEWoJ3WdjW0sTfLtRAUpEX SpW6JpgYHkZSccK933KZfcE nO8DUZl uxDnC7NkUNGilGrfKiI9j4A 7Ey1XtZzrgOGzKU1vTbBjOY u2P3XfYwc7CEXdlBylHK9lk GFkZGlu Pa0erApvfRiqBI8kTTDpjbg zg393GrKmj2yzHZAfzVMcDD dmQDZ0S96er9P7IMIwDTReX KT3mEP2 bY1ngMqwawhbnAYmdExvwzP aeRqtKPbeSVndC604XSDydW quBvYONpf8E1NzApb2SOHai VwbZP8u zLTnIDksEl2ssTfhvLtwRX5 iBJSujuopo000HdCcr8etBO MvrTVrQPwrQYK6Y79au6N8J CMwMDAw NCW0jHI7oK8qyOzchdmixXP mdDsgdmVydGljYWwtYWxpZ2 82TALhfDekPi0CHra8H1HaK ps1UXTn oQnsKB2tmFPsJGslAj1feIw iiEgcNQ3cIPOdyxpxl246Tl Xjp0quYXRchDHhPHsnJCA5X 30kf4T6 ZCScIONnEZR6qGG2tO6hiNb nbjogbGVmdDsgdmVydGljYW tuXJpcI190FNKbjCwoSgHhj WVyOjwv dGQ+VJ79tt86E2VcKslbFiu 4QNEdGBS8qFO0sS4iSDKeVN qxi5P9eBT2H3XerfBqfv1up 2xsYXBz ZTo (more content not included)... [facility] Coding Summaryon 06-30-2022 Coding Summary HTMLBase 64 VgbopeswYUl2iUj+PGhlYWQ +DF7SYGNqV36zvZUasX0tT3 NMTElOSywgQVBQTElOSyIgb uLdYE7edXMhJQUf IC8+XL8zCOMuZmmwnUDjc7F 0xNH8X18okb8bOPhmiTS2BP BtKrEqdsakh1oxcHp3UQwbM mluOyBt HIVleW87SCB8xC50Xo30xRK ngZJbd0czyEj4UmIqZXDlVE C8wXnoGMebt6AmQKKbV70co BXwi3O6 SAZftPaynTNvKyPisTX6qB3 gOEtlgrgmq2qfdkctQbo1yf 92aGWpw9H4rKO5H3MfypF0E GJvbGQg TsijmACNdJ7wknqoq4tdcnu yEpGeMPQyXRk8ADr2BSAdcA waNwWhXI75TFS1OOPvmgXcF 2FsLWFs uPnoWpU7y8Z5Bb7XT4ATWxz xG0LWUAFKNStdkWI+PC90cj 59Y1DnEvhpOsp9HDDsVYX5x DU8mK1f GWGeSKjoc6F4aWK0O9LqivP tli0mw3epDCKwRFcqL17jdN Yoc8I3IWPktQS6EQOdtSzqZ iBzaG93 Oyc+MJQtnBdms1ZvNtrei7e ch2uecAp1RdakCLWkiqRroK gcBMR4m0JnYv4xYTEtkYH0q ET6oM7w QwSaNdP8VTlvC371QzCxwNG gMfqkG45tH1SutMC+PHRyPj d3UBGqwDfwJI2iH5OdBESyq mctbGVm qWkdIN7oNXByttfxOLKsjL9 rBBAiW9p0LyCkSbE5IKkyL8 PiKHFsgbddZd07pB8hBrRmQ rQ8VVyo X4UgcxF9GFTqfKYyQXofRLO 4X81ln2X1ZFAqLOBmVKQ0eU R0cT6mkHqmlfrpcXUnjAenv mVydGlj YWofLAgdH077OOKnpWymDwZ vZGluZyBEYXRlOiAgMDUvMj MvMjAyMzwvdGQ+SYWeYAM8n WxlPSAn sTHaMNovJe9hlBgwfLjqDI6 kJBYhmpqyAIHwdZ9zISJtqS ZcvXcyLW4pPEJijvwpu293G iAxMHB0 QVEyiDIoQ2JeoK7xAfLkBFM cLWUqC9PctTThSRhaQ469QX rgReU3FLAsvcQvR3GdUFYwv WduOiB0 e7R8Au3Gw1PsuoadV3EynBM pZkSwTtilEXr4O1EwSvxkbU I+NY54NUDjWK48BMw1VQJ4y WxlPSdi UAHxB8XffH4gUnKgIDTvTXK kOyc+PHRhYmxlIHdpZHRoPS nvQPDhFbWdcAvpJL4hGb9yQ GVyLWNv dEnrdKEvBtGhw5voGVKiRSc oJN4hjQzyD3NrpEJ7XEEol0 z6Ia87M73cX6PohUC+PGNvb DI6eDQ0 jV4aFdNaDwI4YWwvO044TzZ rmZEaJkfcs6ojs1tqjUm2Hn W6SNGameXreSroLXQ8u6XxJ n08M61f IHdpZHRoPSIxNSUiIHZhbGl inf3qnF5kTd2+TFVzqFH5vZ Q9kS5bJiWxXfS6ZNvrW405S nRvcCIv Qssfn4stw7mjvHh0RdFnDYJ cwzWrkSsnCIU2e0NlFx27O0 SynFyad3FnNhh2ho30wVNce 3T6pTY9 M1LrKFTuixttzIIfgAitTA7 xUMLszgdnSDDlwD0nEHHqX2 f4TtFcOcK0JBzmP4MunvF3N GJvbGQg HDKayNWOkL4luzvhc8mmymr vSvRbSTWpSSl3UEh6NHVypT knRrGqPFG8DkJ3HXP6tIJfj S4khMwg dcfejS4uTtc+FCE4eFGljSG LKN3qUxbblQW+PWJkSHP0dA gsXXcyJMHpwK6oQFZoO2e5O iAwLjA1 BMggU8IkdcS5OAZzoTVhSAU nvQKJcG7dopbun5ygnbiwWd QhLWGvIKa1ZIt3IMTudLdeC iBsZWZ0 TlR2UUY6mLOlsH2qgJlocqj kgS7rJxl+OagufUdiCWR2OR j8I2UsHsu2ATAtxHkqED1an GFkZGlu Qx7ueJiccKnyYE0lNPKitvx ix190SgEns5atCDDmpHCbQO eqSDS2G83dx7W2ZXPfPZExG GX9iUF1 wG8ioFpxyscrwFLdzBygkrU daNhcYDvyPXlkM063ASDmwF gwNxXcICh7T7AfLpe7BJZxr GgeZU0j wFIiKHrpUq3jgXbwkOxyUV4 eOSRqactsv859GgQvh6szKY KxkWXuDXgiDNY7B91ir2Y1Q CMwMDAw QWC6nZR3rE1qbIklnefbhWZ mdDsgdmVydGljYWwtYWxpZ2 06EBLklOqtNxHbyDo0H6QoW vc3GNVm zJdvME5osZPrFWkbYy8wcPy qeJrcCM4uDUBffnpuv164Qv Djh1wvDIXgoYJwATngZRT9Y 55rs1I2 DAYlTARnIZI5ySS7xU2mvTm nbjogbGVmdDsgdmVydGljYW qcKIqyS108NIXhiQyeFnXze GllbnQg XRbeAZf6W3FpBnanqET+PC9 8LQYkAF06qRBehLIcn4rcdJ w9UrJlWLGaJDR0pCinBWelf 3JkZXIt J32xuPXgk0V0NMRndLoipPR uOzCemXC2rP3jOEytctgrj4 hrddjwQxozg1ovuu47tK50W 29sIHdp ZHRoPSIzMCUiIHZhbGlnbj0 mkX3sNt0+AQEqqQO3nNQ6fG 6xKYIqTaM6KBwsM886NcRpj CIvPjxj s3bee2kfrKw7KjH4KGWqmxX drVgiZFM7u9TqSz14H46xMR dpZHRoPSIyMCUiIHZhbGlnb w7osS5n Ii8+DNLyoGS2cFL3mK3fJgO jPfO4GQauJ115GiOcxDQxPi qtV36rS4QqgZL+OMNhBxz4C CBzdHls ML6hxOElZNuxXv4jIHJ4KdU wCaEcPHazP3MqKQBaflnsha fzqNJ9EKFeEWCwkV46Ee2ni DogMTBw dITMdT7xzdwfs8arylpwJsD eNXXcMSh2NQo3GERabKxtCa XtEYW8QeR4YKY8gICxvX4vu Glnbjog rE1tN8BpJYXysrfhRx11aL4 qRtTgPgI4OOvrSmt+TUlMTE VSLCBTSEFXTkVMTEUgRTwvd GQ+PHRk WZS0eUdlGOffRZPfdD3dIYX kD1a8UqDhTkE5COkjA8MvMJ EchhjvYv08dH5nQuArPsZ5M KmgS6Zp pyV2SKJsoUFzLGniHFH3V90 bv4N1PUPmAZUoHIO6uGX6eU 1hbGlnbjogbGVmdDsgdmVyd GljYWwt UDznD529RBVjhXntUrZcLkX qEzV8NRs2B2QxKfh9GIGqtT yiOX9npUNpUEmhZp1roMixh BdiON6x GCQudfkwREFwfZ3oFEGjxEM ckOvbQI9hPXYtnxgsn764Zr WgHAV2YVEmnHOlD2YrwM1pC iAjMDAw VVQvN2PelSQbCDtuQ322NOq kLtN2YOQskfCcP1AdILNzkV unFoF2m6Y9Px5mOHSKWVBnm zwvdGQ+ HUSmVXD9oQfvXCjfVPKhtP0 eXILvM7l6IgTgRxE6ZFfpH1 BcOXFjwkvjTq87cT2sHeThA lL3BGgp G1PlxfD5UDGczYQpDUnoGGX 6D47ua0J8XIDvQESyBQI7oY D3jB7ykCbocsfkrJVygAftr mVydGlj GKhwVHfkK705AEEmvMtxQpP FTUFMRTwvdGQ+NRXqHIQ3cG guWOajILLdbS8rXMDfJ1a4I iAwLjA1 VNjqF3JuVQKfgjbhQg35aT0 bFhFlRqO6CVlnE5AklzX6PF LgqKRyWHcmXSS3P11rf8U3P CMwMDAw PXD7cWA6eP4kiNcrwfhczNW mdDsgdmVydGljYWwtYWxpZ2 74KIGmfBkvSf0ZGO18EG95Q 3RyPjwv dGFibGU+PHRhYmxlIHdpZHR mDNdzTBMcOpHwiJafNY5eEl 9yZGVyLWNvbGxhcHNlOiBjb 2xsYXBz IZdfEV6fyBtdI0NikPQ5HCC pr1l1Qv86I26oX3RenTE+PG JphHH3eSP3bF2uXaBbDiZ2G QhlR467 GfDeeTYiGzsdt3qdz3uhqLg 0AgBfYOTyclTcaUqfUXP8a4 TbHb77G83aPFoiZNQeAOLyI CUiIHZh zTwmji9sqM2lLs6+PGNvbCB 2wRC3gN9cCyAoCkM5QXetJ0 24GoDcoXAfFavfS03rQ8Knl XA+PHRy Ggt2SNPkuFsoCQ2xmQLuHOv qFq9vQBP4JsKkSjRmPNskF4 ArDBVuguluvrjogQV0ENHaS DUwaW47 Xc9qjQbyLl8vXLSfHJM6RPE pkZRqI4JsuL0fLtAmTCLsUM VeE6UkfUToWXjqB447ZGtrD aH2MECg jbAoH1WlAQCgbLyaVsI6r1U 6Zk4NrPtjbWKrFF1uCjXtPV p9C6FnSml4MQXhoYdaVS7ob GFkZGlu Eu4akAmafXauHS0vZOBgzmb ws513CnTrd8jcEVRgaZYoYJ oxDFD0V90si5Z5FCZkCMBtU SI1mHE2 xN8rxIvwxbvkyEMctXzjsfL mqBzuEIhnNSfdP234DOHvpD hkQjFIJjv6S9CtVzw4TYBpa NcpOP2t zQFqGNppCx3vbKeblZzrWX3 wJRSdghkav892MdQkl2jzYU TnfDFuDGtwCTY9Y79ea1G3H CMwMDAw BOQ5tOD5kN9goFucjmdpaSM mdDsgdmVydGljYWwtYWxpZ2 26LFEhgWpbXn1VHqj9W9NlK wp4TWXu oEinKQ9xhKOaUIcmKt1agOd auBgvZZ1pAKJtiaulg442Qy Fxx8cwAXZyoHSfTUrcZJY1S 89rq3Q2 SRCnCJIaOPC2gIM2jW5oiJv nbjogbGVmdDsgdmVydGljYW cfNCzgV653DFMnuFrtPeUiv WVyOjwv dGQ+OW91eg27U4SgAnvcMpo 1EIUnGLK0aEK5lL7iBXZyUA bez9K7hGJ1W1AnndQjlc0ts 2xsYXBz ZTo (more content not included)... [facility] Rad - Other Radiology Report on 06-30-2022 Rad - Other Radiology Report [id number]#1.00OT [facility] Consent Formson 06-26-2022 Consent Forms [id number]#1.00OT [facility] Mammo Diagnostic 3D Left. on 06-25-2022 [place] Mammo Diagnostic 3D Left. MAMMOGRAM DIAGNOSTIC 3-D [...] is recommended for further evaluation. R2 image Multi Sensor Operator was utilized for this study. There is what appears to be a loop recorder on the left as previously noted. R2 image Multi Sensor Operator was utilized for this study. IMPRESSION: There [...] 6:25 Signed (Electronic Signature): Trell Gordillo MD 06/26/22 12:57 p Technologist: AUBRIE Assessment: 4-Suspicious abnormality, biopsy should be considered Recommendation: Biopsy should be considered Normal [facility] US Breast Left Limited.on US Breast Left [...] MD 06/26/22 12:57 p Technologist: PM,ER Normal [facility] Comment on above: Order Comment: Reque st for coned down compression view and true lateral view of the left breast Coding Summaryon 06-08-2022 Coding Summary HTMLBase 64 GikjhdrsGFr7uAw+PGhlYWQ +OT1SQSFhD93ojYPjcV7BE2 sVBI1ITVEUDBKJAB4JWS4cx BU2ZZohU3LlpyFi HwalzTTfVA51XPt6QJX2dNw vCKhxrJ8zcQOmW5n1GiRrIP 44lL49UOwkCDAcDkX7BnFyg jsgbWFy C6luJcMfwLXuOjv+PHRhYmx lIHdpZHRoPScxMDAlJyBzdH vsQR4xGa3nTQOdOCQwtYize HNlOiBj s2oyREZwVZllOV2uxTotT9O pnUT1YYZly0u5Uj17sJX+PH CwBSQ9sSbxXMyck573NnAgb 7jsGCS7 oJWiJOyeQEY2Y82ud7A4CXD oLQFtKQF3xDD8vQ8xaJruak qqM9ZerELdBgN6JMS9oVKvp D7epKjf pxfdqB9jQjd+F65YIX9DRFT QAL3CDfh2Y9LjMbtmoMO+PC 90TSAxGO28tDMjzTDnk5yfk Gg1VyFm DWZvKBH2gLvmGYmqw4BbDHS dC74zhRHlg2K7VDFokWithM KyHtBsgBC5mC0hUDwuqiuuw 2hvdzsn Dvuik1bcyj40yC51Y42aGBq tSFZxXZX6BTBqUDBuxZdepw 5icK2sXg7+DFcvu7yen4ycq Dm9HiTp NIRxpyKxyCidOHT0g4SvTr2 3T8BkiThmg1RxQcc7ih49mZ Uex1W4xNN8XEskCVBjqZ7wE WxlZnQ6 QXZiDtXtdI35mUQqMTcqAm9 unTmojNjxUQ0gUFOxefijHG IadJ9uKZYykZGlwHmmFW1dC TBpbjtm r119ImXwJSD8KAYfoIFrG1J ubK8fSzPuHUEgHWXrS2UueU AvJBmmH692RSylKkY9IAItm pGaI2Of EXZwcRorQqN1r5F1Oe4Xh3M lsmehYPM6DGxsRNC1PiXdXy QgOuD6M7RzBve5RVYgmNjzT Z4xR4Hp DNXaxruofbrbrVX0QDJpKSJ ifM92sVGtUPhuTl9ko0F0w7 79WKFrVBNuoF22Ft5vpEbkZ TBwdCBU aX6pmsfjs2ynhrukGrNsOYJ lNMr0BSh8BUUtkXiyPaNlRS T4AlB3LYZ4iXLabP2gaDvad jfloB2d Oyc+N76rlO0qHES8CJZ8ukr xKFWvtaViFE46KZ90M8LyPo wvdGFibGU+PGRpdiBzdHlsZ K4nNmLe m3osw2DlBXfqF9FlAXIoGLo zJzo4ODVfWZB6aFR2mE8hRM PoMUpea5G1fWB7E4RvpeHag d1sz1rh PKDwKJhrD52vvZYvy2G5SGF inTZ4FUGvuWqxVxPjwS69Pp c+TJTilUzrw8MqZsumq0oax 4ytqBg2 HjCkUMArttKuxWdqWVC1l4B uMh21M25zBVqdPKZfWVFuEN ZlRLUbdOewuw4egX3mBg4+P GNvbCB3 iDC6eI9uRFBfWzM5DBowT49 9FvSdkVYdMpnbd8ucq6xenK u2FzWeYYJdzbJtzWjbGCI4d 0HnMt21 S75uGBgdMCRfRUCrUCWpLSE gkTplas4bwL8tOy8+PC9jb2 uvji57fF96eNP+EAQaRNF2d WxlPSdw YCXbyI5rBCraVwR2KEUwRcQ jhM74jKRlRQmhEv0qwChqwK brCU4kYTQaopfkq781JxFnn 2xkIDEw wEKoVWwmJCE1N05og1Q3BTF gKYGvEEY5xKD4uH3wjDqmuj ogbGVmdDsgdmVydGljYWwtY JjxL325 IHRvcDsnPlBhdGllbnQgTmF xECa9V8XnLsq7EIMamEkfYG 4bvSWvOGzyLy5vfOsttQefT L3lNWOs gtbsk135FqKmk3uvNFLurJZ iIWvsZWT7L32kg9K2TMMhRY MwZOD3rOX2uM2lrSrprychq GVmdDsg whRdkOujHOmnJRviO518NJE efVxhMfVmkhRlYEEfiIL0DG 64LV37qPLxi8M4sIL7B8KbT GRpbmct ehlgtPN2GPRqHNTjkV64Ms3 dzGgjHx2gITAwCKY5SBOweA AuV8VwxP2hLfYsYUQtWWBhO 3RleHQt YJfwQ266OIqgWgH4LBXcmxA fF0LdWXUegSehGrH9a2A8Hy 1SR6D7ZO46QE45qHQdh6B0b CT9I0Iy FRByurfrmfjqxDC6PDDyQXX emA08Cw0xmWwaWf8nSORzBG A7YAOtpHWcT4JigE2oTtNdL DAwMDAw R3BfuNJkBXkeX778BVnmPxP 2GGXcahAiC4GaMIBchGntNy A1f2G8Zu5BWLn5WC72LV55w VPue0L9 sYN7M8ApBQGwrocmrprewVZ 0JAJnZMRdqZ67Ki4xiRkfNf 5vVPTcTTL7ROHukEUmZ6Vpv E8dOoOh ORFeWKBzQ8VoyQZxIRavY38 2SCwnZpX5EMHquiIwF0MjEB RufZrpVtH5x6H5Te4HWHFxQ G30OOA1 tQZ1RZ92IV22L5NcCuwxhXC ibGU+PHRhYmxlIHdpZHRoPS yiRCPvImTgxEczQW3wTj2fS GVyLWNv tUfstDYgVrXcq4pjTRPtCId eOK6zkAoqK8ArkNN7JTTdd5 e1Qs71B10dO9GidDY+PGNvb QL6wGR1 qD5cAbXiPyY2GZicP228XyF hgNRnWogkh3tiq9yhhXw7Zy E8HOKhnmCdbWbeJHC2s7KcS o59L82r IHdpZHRoPSIxNSUiIHZhbGl cji4alV6uRe0+VNDinFZ5uY S5cI5pOgYzHsE5KEyuA935Y nRvcCIv Qbnis1vti8gmiUw6DiVlNIE vmmYkyByfRQD0q5JmYx88R3 BdwBhaa4XaBwl7id52wNKkq 7O4zPQ7 J6OrIUHplohocPXkiSjkNK9 sMQVnjxgnHYUjaH0iJOLoS3 v2NsDqYpJ2PWczX9EjmfG6U DEwcHQg YPmaYBZ4R60xo9J1RDFyCPX gYXF7cUY8oV2arDlbatjjaW VmdDsgdmVydGljYWwtYWxpZ 246IHRv oAlvJOMnbO4nTJZmkNWhiNu mTY4zQNQputwfDc5KSLbJPu vnR4bKJ75NMKbQRYD8R8TmS nr6TCMs iBqsLG5ypNOoGZhbEm6xcJs txXlgLZ3qUUXlugivEJZuzT 0oVLCteHIvkIkbLM3iSXGkw bjmb599 NxXbAUK2SRVnbJOlI3UidZ9 lHqFkLOQcGEAeJ2HjjICmZD erM976DUgxLpO5TSQcyoEpM 2FsLWFs mCmcVaY4o0C5Ge6hJf8zXK6 iBWh2NI67OI28aEVkq1I0aP U1G4TxVXLvtveqcyoxiNE9D DAuMDUw pJ20qCKnQObvCj2gu9C4p09 6TKJcINMnvY63Mm1mnRztHM NdaYXWdZ1cywtqv1fjuyatP zAwMDAw LAp2JWc7RIUgeFoiVmUsJOC 6EeD2KDI7cUGrdQ7pcKpujx soaV0cHyh+EsDqPXXdawV8V 1CkYoe1 YHKyzKkrKI4nuQCsCHceQe1 htFingJnxGE1yOLUoaxozBZ FakD3rOBOmmOFomKybZF0eT TBpbjtm r374HhQrSAC3IKItkSEsU6C ixH9hRoPmAOLlZSIiL0ItsN EsJDeoU561TYdjJrD5WHQrt hSbE3Ws ENXnoKnfUqQ0z1P4Ui9OCC0 BGEX1A0NnXqf3PFXpeXeyMP 8ooGCdZQakSr1ngSahfJfoJ D0uMFCk ximhIAUdnO9oVRQxpVHtrEr gDW1jGABzknqkf474ZlIqTI N9WKBxvIRbP8XvxW5eOuNsP DAwMDAw F4AtlDXqIRwxA437ACneFgD 8LIGcqlLrE2UeEPIxpJtrIi P2t8B3Pq8QDFbbuAM+PC90c u54Y8Qw ZvbfEnu0UTQhIGB8yXV3aA7 qNCAyFOfgp7Y1wJC0B6Ehts Ikbp2zr7uqUZJuUEloQ42sw BEir5W4 PYSvoWB3QDJgsBvvJrCeeL1 3Oyc+QRBduJlmq5HsAlxpt5 okv9xmwYn3ZjHvKWVhndNjl WduPSJ0 h4IyUd26U60vCIdtWRVeSRW uXQPkWMZyfQrram5wfL1lGj 8+ZJUbfMI5tGU0lI8xXrHpD zM9WMmd A838EaAgtYTnQstlq9rhj9q bmTf5VxBfZIKlhdBenYzgBZ D6y4VcQi43O5EknXtst8OjU pl6oq75 fQOgn3F1sTK9U2YuKYAazeu tsJGzfOgcPH0rDTKmpnquID WbcB6gUAVxO1t1ScVgJkD7R CcdU7Xz vgR2CTZdgMFiXCOcgYJVzK5 wehxmg1jqwllvOzTcLNSlRT f3ZGa1RONbbTgqUuJiYRB5O gN6VCJ5 lHCvdU0zjTllcyucoQ2eMij +CUg1q9byuAZzSK7ybSF5EV 61BV48iORkk8Y6rIN9Z4BwM GRpbmct aivcuOL4EJNoWRJudL10Oi8 okJspYi5tJMQxPAL0IWMkeH VgD5GowQ3bEaJdWOSmXEGeL 3RleHQt QAaeS552BHqgUcG6YDUmgmE zU8RvZMWbePpfFxS1r2D8Dt 3QNY25LX16WR14aGYex5S6t TL0E3Ry IBTqidgvwsonxOC9FCNxQVT kcI43Gq1sfPhzJg8lRYFdYI J3MLHmuBEwX4WfnZ3qAbEbI DAwMDAw Q0IlbSTfVOjvP320MCysXiG 9LPUsphUbX5QeOATxlJmnAh G1c0Y0Mn6VFs26YY17GB77d MVrs8X7 mUB4D4UqYKOqnnblqnmrnCV 8ZUXcAIBpwB14Yl2pjQjcUs 3dIPWfKFR0DQOmcAPuX2Aul L3iFnKb TXNlLMMgZ9PmmRLrDJjqS19 8KEiqSjC3SSUigzXiW9RrGJ DvdOsmNjG3h6U7Kf9LBOtlm qs7G5Dr PjwvdHI+QO59JPPpPG76nON ivBOxm6qqrVx4PtGbKHZlMF U8qUfyKIvrn2UhFDXsD54ze CRlc1O1 IGN (more content not included)... Normal [facility] Miscellaneous Testing LCon 0 06-05-2022 Mis. Test Result LC COMMENT Invalid Interpretation Code [facility] Comment on above: Order Comment: Pap w ith Ct/Ng, hr HPV, rfx 16 and 18/45ThinPrepCervixBrush/Spatula Result Comment: [id number] Source.............Cervix No. of containers..01 ThinPrep Vial Test Ordered: IGP,CtNg,AptimaHPV,rfx16/18,45 DIAGN Comment [facility] NEGATIVE FOR INTRAEPITHELIAL LESION OR MALIGNANCY. ADEQ Comment [facility] Satisfactory for evaluation. No endocervical component is identified. PERFOR Comment [facility] Sujey Zuniga, Psych Coordinator (ASCP) COMM . [facility] NOTE Comment WB [...] HPV types (16,18,31,33,35,39,45,51,52,56,58,59,66,68) without differentiation. REFLEX Comment [facility] Criteria met, see HPV Genotype results. HPV Genotype 16 Negative =G Reference Range: Negative HPV Genotype 18,45 Negative =G Reference Range: Negative Chlamydia, Nuc. Acid Amp Negative =G Reference Range: Negative Gonococcus, Nuc. Acid Amp Negative =G Reference Range: Negative Performed At: [facility] [id number] Frankie Rebollar MD Ph:[phone] Performed At: [facility] [address] [place], [place] [id number] Kassie Freire MD Ph:[phone] Performed At: =G [facility] [id number] Frankie Rebollar MD Ph:[phone] Performed By: #### 1 [id number] ####[facility] (DEFAULT)[address] [place] [address] Consent Formson 06-04-2022 Consent Forms [id number] TGTIFF Normal [facility] Mammo Screening 3D Bilate ral.on 06-03-2022 [place] Mammo Screening 3D Bilateral. Mammogram screening 3-D [...] level on the MLO view. R2 image Multi Sensor Operator was utilized for this study. IMPRESSION: Asymmetric [...] Need additional imaging evaluation Recommendation: Additional projections Normal [facility] Outside Recordson 06-03-2022 Outside Records [id number] [facility] Orderson 05-27-2022 Provider Orders [id number]#1.00O [facility] Miscellaneous Testing LCon 0 05-26-2022 Miscellaneous Testing LC Pap w/ Ct/Ng, hr HPV, rfx Invalid Interpretation Code [facility] Comment on above: Order Comment: Pap w ith Ct/Ng, hr HPV, rfx 16 and 18/45ThinPrepCervixBrush/Spatula Performed By: #### 1 [id number] ####[facility] (DEFAULT)[address] [place] [address] Test Code LC [id number] Invalid Interpretation Code [facility] Comment on above: Order Comment: Pap w ith Ct/Ng, hr HPV, rfx 16 and 18/45ThinPrepCervixBrush/Spatula Performed By: #### 1 [id number] ####[facility] (DEFAULT)[address] [place] [address] Test Name LC Pap w/ Ct/Ng, hr HPV , rfx Invalid Interpretation Code [facility] Comment on above: Order Comment: Pap w ith Ct/Ng, hr HPV, rfx 16 and 18/45ThinPrepCervixBrush/Spatula Performed By: #### 1 [id number] ####[facility] (DEFAULT)[address] [place] [address] Outside Recordson 05-22-2022 Outside Records [id number]#1.00O [facility] CBC AUTO DIFFon 03-23-2020 Basophils (Bld) [#/Vol] 0.1 103/ul Normal 0.0-0.1 [facility] Comment on above: Performed By: #### C BC #### [facility] Laboratory [address] [place] [address] Akin Aysha Basophils/100 WBC (Bld) 0.6 % Normal 0.2-2.0 [facility] Comment on above: Performed By: #### C BC #### [facility] [address] [place] [address] Akin Aysha Eosinophils (Bld) [#/Vol] 0.2 103/ul Normal 0.0-0.7 [facility] Comment on above: Performed By: #### C BC #### [facility] [address] [place] [address] Akin Aysha Eosinophils/100 WBC (Bld) 2.3 % Normal 0.9-7.0 [facility] Comment on above: Performed By: #### C BC #### [facility] [address] [place] [address] Akin Aysha Erythrocyte distribution width (RBC) [Ratio] 12.2 % Normal 11.0-15.0 [facility] Comment on above: Performed By: #### C BC #### [facility] [address] [place] [address] Akin Aysha Hematocrit (Bld) [Volume fraction] 43.4 % Normal 36.0-48.0 [facility] Comment on above: Performed By: #### C BC #### [facility] [address] [place] [address] Akin Aysha Hemoglobin (Bld) [Mass/Vol] 14.4 g/dL Normal 12.0-16.0 [facility] Comment on above: Performed By: #### C BC #### [facility] [address] [place] [address] Akin Aysha IG # 0.03 10e3/ul Normal 0.00-0.03 [facility] Comment on above: Performed By: #### C BC #### [facility] [address] [place] [address] Akin Aysha IG % 0.3 % Normal 0.0-0.5 [facility] Comment on above: Performed By: #### C BC #### [facility] [address] [place], [place] [address] Akin Aysha Lymphocytes (Bld) [#/Vol] 3.8 103/ul Normal 1.2-3.8 [facility] Comment on above: Performed By: #### C BC #### [facility] [address] [place], [place] [address] Akin Aysha Lymphocytes/100 WBC (Bld) 37.3 % Normal 20.5-60.0 [facility] Comment on above: Performed By: #### C BC #### [facility] [address] [place] [address] Akin Aysha MANUAL DIFF REQ NO Normal [facility] Comment on above: Performed By: #### C BC #### [facility] [address] [place] [address] Akin Aysha MCH (RBC) [Entitic mass] 30.9 pg Normal 26.7-34.0 [facility] Comment on above: Performed By: #### C BC #### [facility] [address] [place] [address] Akin Aysha MCHC (RBC) [Mass/Vol] 33.2 g/dL Normal 29.9-35.2 [facility] Comment on above: Performed By: #### C BC #### [facility] [address] [place] [address] Akin Aysha MCV (RBC) [Entitic vol] 93.1 fL Normal 81.0-99.0 [facility] Comment on above: Performed By: #### C BC #### [facility] [address] [place] [address] Akin Aysha Monocytes (Bld) [#/Vol] 0.9 103/ul Critically high 0.3-0.8 [facility] Comment on above: Performed By: #### C BC #### [facility] [address] [place], [place] [address] Akin Aysha Monocytes/100 WBC (Bld) 8.7 % Normal 1.7-12.0 [facility] Comment on above: Performed By: #### C BC #### [facility] [address] [place], [place] [address] Akin Aysha Neutrophils (Bld) [#/Vol] 5.2 103/ul Normal 1.4-6.5 [facility] Comment on above: Performed By: #### C BC #### [facility] [address] [place] [address] Akin Olmstead Neutrophils/100 WBC (Bld) 50.8 % Normal 43.0-75.0 [facility] Comment on above: Performed By: #### C BC #### [facility] [address] [place], [place] [address] Akinenio [place] Platelet mean volume (Bld) [Entitic vol] 8.6 fL Critically low 9.5-13.5 [facility] Comment on above: Performed By: #### C BC #### [facility] [address] [place], [place] [address] Akin [place] Platelets (Bld) [#/Vol] 347 103/ul Normal 150-450 [facility] Comment on above: Performed By: #### C BC #### [facility] [address] [place], [place] [address] Akin Segundoen RBC (Bld) [#/Vol] 4.66 106/ul Normal 4.20-5.40 [facility] Comment on above: Performed By: #### C BC #### [facility] [address] [place] [address] kAin Olmstead WBC (Bld) [#/Vol] 10.2 103/ul Normal 4.0-11.0 [facility] Comment on above: Performed By: #### C BC #### [facility] [address] [place] [address] STROKE HEAD WOon 03-23-19 CT STROKE HEAD WO EXAM: CT STROKE [...] reconstruction technique. Critical result discussed with Dr. Adilia Perez at the time of dictation. Electronically authenticated by: SUZI SAID Date: 2020-03-22 23:46 Normal [facility] CTA HEAD WO W CONon 03-23-19 21 CTA HEAD WO W CON EXAM: CTA HEAD WO W CON 03/22/2020 11:04 PM EST [id number] CLINICAL STATEMENT: Dysarthria COMPARISON: No prior studies are available at the time of dictation. TECHNIQUE: Routine ak[place] of Castillo/brain CT angiogram protocol was performed following 75 cc Omnipaque 350 of intravenous contrast. AEC is utilized. 2-D and 3D reconstructions were reviewed. FINDINGS: There is no evidence for intracranial aneurysm and/or high-grade stenosis of the [place] of [place]. The vertebrobasilar artery is patent without aneurysm and/or high-grade stenosis. No acute intracranial arterial occlusions are identified. IMPRESSION: Unremarkable CTA of the head. FOLLOW-UP: Follow-up as clinically indicated. Dose reduction techniques were achieved by using automated exposure control and/or adjustment of mA and/or kV according to patient size and/or use of iterative reconstruction technique. Electronically authenticated by: SUZI SAID Date: 2020-03-23 00:52 Normal [facility] CTA NECK WO W CONon 03-23-19 21 [...] of iterative reconstruction technique. Electronically authenticated by: SUZI HERNANDEZ Date: 2020-03-23 00:54 Normal [facility] CULTURE URINEon 03-23-2020 CULTURE URINE Culture Observations : NO GROWTH Normal [facility] Comment on above: Performed By: #### I NFLUAB #### [facility] [address] [place] [address] Akin Aysha DRUG SCREEN RAPID (URINE)on 03-23-2020 AMP Negative Normal NEGATIVE [facility] Comment on above: Performed By: #### U MICRO, DRUGRPD, ERUR #### [facility] [address] [place] [address] Akin Aysha BAR Negative Normal NEGATIVE [facility] Comment on above: Performed By: #### U MICRO, DRUGRPD, ERUR #### [facility] [address] [place] [address] Akin Aysha BUP Negative Normal NEGATIVE [facility] Comment on above: Performed By: #### U MICRO, DRUGRPD, ERUR #### [facility] [address] [place] [address] Akin Aysha BZO Negative Normal NEGATIVE [facility] Comment on above: Performed By: #### U MICRO, DRUGRPD, ERUR #### [facility] [address] [place] [address] Akin Aysha JESUS Negative Normal NEGATIVE [facility] Comment on above: Performed By: #### U MICRO, DRUGRPD, ERUR #### [facility] [address] [place] [address] Akin Aysha CUT-OFFS SEE BELOW Normal [facility] Comment on above: Result Comment: AMP (Amphetamine): [...] By: #### U MICRO, DRUGRPD, ERUR #### [facility] [address] [place] [address] DRUG CUT HEADER DRUG CLASS TEST SYST EM CUT-OFF CONCENTRATIONS ARE FOLLOWS: Normal [facility] Comment on above: Performed By: #### U MICRO, DRUGRPD, ERUR #### [facility] [address] [place] [address] mAMP Negative Normal NEGATIVE [facility] Comment on above: Performed By: #### U MICRO, DRUGRPD, ERUR #### [facility] [address] [place] [address] MTD Negative Normal NEGATIVE [facility] Comment on above: Performed By: #### U MICRO, DRUGRPD, ERUR #### [facility] [address] [place] [address] OPI Negative Normal NEGATIVE [facility] Comment on above: Performed By: #### U MICRO, DRUGRPD, ERUR #### [facility] [address] [place] [address] OXY Negative Normal NEGATIVE [facility] Comment on above: Performed By: #### U MICRO, DRUGRPD, ERUR #### [facility] [address] [place] [address] PCP Negative Normal NEGATIVE [facility] Comment on above: Performed By: #### U MICRO, DRUGRPD, ERUR #### [facility] [address] [place] [address] Akinenio Olmstead PPX Negative Normal NEGATIVE [facility] Comment on above: Performed By: #### U MICRO, DRUGRPD, ERUR #### [facility] [address] [place] [address] Akin Aysha TCA Negative Normal NEGATIVE [facility] Comment on above: Performed By: #### U MICRO, DRUGRPD, ERUR #### [facility] [address] [place] [address] Akin Aysha THC Positive Abnormal NEGATIVE [facility] Comment on above: Performed By: #### U MICRO, DRUGRPD, ERUR #### [facility] [address] [place] [address] Akinenio Olmstead ER URINE PROFILEon 1 Bilirubin [Mass/Vol] Negative Normal NEGATIVE [facility] Comment on above: Performed By: #### U MICRO, DRUGRPD, ERUR #### [facility] [address] [place] [address] Akinenio Olmstead BLOOD TRACE-INTACT Abnormal NEGATIVE [facility] Comment on above: Performed By: #### U MICRO, DRUGRPD, ERUR #### [facility] [address] [place] [address] Akin Aysha Clarity (U) CLEAR Normal CLEAR [facility] Comment on above: Performed By: #### U MICRO, DRUGRPD, ERUR #### [facility] [address] [place] [address] Akin Aysha Color (U) YELLOW Normal YELLOW [facility] Comment on above: Performed By: #### U MICRO, DRUGRPD, ERUR #### [facility] [address] [place] [address] Akin Aysha ERUAHD A micrscopic examination will be performed if indicated. Normal [facility] Comment on above: Performed By: #### U MICRO, DRUGRPD, ERUR #### [facility] [address] [place] [address] Akin Aysha Glucose [Mass/Vol] Negative Normal NEGATIVE [facility] Comment on above: Performed By: #### U MICRO, DRUGRPD, ERUR #### [facility] [address] [address] Akin Aysha Ketones Ql (U) Negative Normal NEGATIVE [facility] Comment on above: Performed By: #### U MICRO, DRUGRPD, ERUR #### [facility] [address] [address] Akin Aysha Nitrite Ql (U) Negative Normal NEGATIVE [facility] Comment on above: Performed By: #### U MICRO, DRUGRPD, ERUR #### [facility] [address] [address] Akin Aysha pH (Bld) 5.5 Normal 5-9 [facility] Comment on above: Performed By: #### U MICRO, DRUGRPD, ERUR #### [facility] [address] [place] [address] Akin Aysha Protein (U) [Mass/Vol] Negative Normal NEGATIVE/ TRACE [facility] Comment on above: Performed By: #### U MICRO, DRUGRPD, ERUR #### [facility] [address] [place] [address] Akin Aysha SPEC GRAVITY 1.025 Normal 1.005-<=1.025 [facility] Comment on above: Performed By: #### U MICRO, DRUGRPD, ERUR #### [facility] [address] [place] [address] A[place] Aysha UR MICRO IND INDICATED Normal [facility] Comment on above: Performed By: #### U MICRO, DRUGRPD, ERUR #### [facility] [address] [place] [address] Akin Aysha Urobilinogen Qn (U) 0.2 EU/dl Normal 0.2 - 1.0 [facility] Comment on above: Performed By: #### U MICRO, DRUGRPD, ERUR #### [facility] [address] [place] [address] Akin Aysha WBC (Bld) [#/Vol] Negative Normal NEGATIVE [facility] Comment on above: Performed By: #### U MICRO, DRUGRPD, ERUR #### [facility] [address] [place] [id number] [place] POINT OF CARE GLUCOSEon 03-11 Glucose [Mass/Vol] 111 mg/dL Critically high 74-106 [facility] Comment on above: Performed By: #### P OCGLUC #### [facility] [facility] [address] [place] [id number] Akinenio Olmstead URon 03-23-2020 , QUAL Negative Normal NEGATIVE [facility] Comment on above: Performed By: #### P REGU #### [facility] [address] [place] [id number] Akin Olmstead PROF 14(COMP METB)on 021 Albumin [Mass/Vol] 3.9 g/dL Normal 3.5-5.0 [facility] Comment on above: Performed By: #### C CHRISTIAN HSTROPN #### [facility] [address] [place], [place] [id number] Akin Olmstead Albumin/Globulin [Mass ratio] 1.0 {ratio} Normal [facility] Comment on above: Performed By: #### C CHRISTIAN HSTROPN #### [facility] [address] [place], [place] [id number] Akin Aysha ALP [Catalytic activity/Vol] 43 U/L Normal 38-126 [facility] Comment on above: Performed By: #### C CHRISTIAN, HSTROPN #### [facility] [address] [place], [place] [id number] Akin Olmstead ALT [Catalytic activity/Vol] 29 U/L Normal 9-52 [facility] Comment on above: Performed By: #### C CHRISTIAN, HSTROPN #### [facility] [address] [place], [place] [address] Akin Aysha Anion gap [Moles/Vol] 13.1 mmol/L Normal [facility] Comment on above: Performed By: #### C CHRISTIAN, HSTROPN #### [facility] [address] [place], [place] [id number] Akin Aysha AST [Catalytic activity/Vol] 20 U/L Normal 14-36 [facility] Comment on above: Performed By: #### C CHRISTIAN, HSTROPN #### [facility] [address] [place] [address] Akin Aysha Bilirubin Ql (U) 0.2 mg/dL Normal 0.2-1.3 [facility] Comment on above: Performed By: #### C CHRISTIAN, HSTROPN #### [facility] [address] [place] [address] Akin Aysha Calcium [Mass/Vol] 9.3 mg/dL Normal 8.4-10.2 [facility] Comment on above: Performed By: #### C CHRISTIAN, HSTROPN #### [facility] [address] [place] [address] Akin Aysha Chloride [Moles/Vol] 105 mmol/L Normal 98-107 [facility] Comment on above: Performed By: #### C CHRISTIAN, HSTROPN #### [facility] [address] [place] [address] Akin Aysha CO2 [Moles/Vol] 24.4 mmol/L Normal 22.0-30.0 [facility] Comment on above: Performed By: #### C CHRISTIAN, HSTROPN #### [facility] [address] [place] [address] Akin Aysha Creatinine [Mass/Vol] 0.72 mg/dL Normal 0.52-1.04 [facility] Comment on above: Performed By: #### C CHRISTIAN, HSTROPN #### [facility] [address] [place] [address] Akin Aysha EGFR-AF STATELESS >60 Normal >=60 [facility] Comment on above: Performed By: #### C CHRISTIAN, HSTROPN #### [facility] [address] [place] [address] Akin Asyha EGFR-NON AF STATELESS >60 Normal >=60 [facility] Comment on above: Performed By: #### C CHRISTIAN, HSTROPN #### [facility] [address] [place] [address] Akin Aysha Globulin (S) [Mass/Vol] 3.8 g/dL Normal [facility] Comment on above: Performed By: #### C CHRISTIAN, HSTROPN #### [facility] [address] [place] [address] Akin Aysha Glucose [Mass/Vol] 91 mg/dL Normal 74-106 [facility] Comment on above: Performed By: #### C CHRISTIAN, HSTROPN #### [facility] [address] [place] [address] Akin Aysha Potassium [Moles/Vol] 3.5 mmol/L Normal 3.4-5.0 [facility] Comment on above: Performed By: #### C CHRISTIAN, HSTROPN #### [facility] [address] [place] [address] Akin Aysha Protein [Mass/Vol] 7.7 g/dL Normal 6.1-8.2 [facility] Comment on above: Performed By: #### C CHRISTIAN, HSTROPN #### [facility] [address] [place] [address] Akin Aysha Sodium [Moles/Vol] 139 mmol/L Normal 137-145 [facility] Comment on above: Performed By: #### C CHRISTIAN, HSTROPN #### [facility] [address] [place] [address] Akin Aysha Urea nitrogen [Mass/Vol] 15.0 mg/dL Normal 7.0-17.0 [facility] Comment on above: Performed By: #### C CHRISTIAN, HSTROPN #### [facility] [address] [place] [address] Akin Aysha Urea nitrogen/Creatinin e [Mass ratio] 20.8 mg/mg Normal [facility] Comment on above: Performed By: #### C CHRISTIAN, HSTROPN #### [facility] [address] [place] [address] Akin Aysha TROPONIN, HIGH SENSITIVITYon 03-23-2020 HSTROP 4.0 pg/mL Normal 4.0-35.5 [facility] Comment on above: Result Comment: CUT- OFF POINTS HAVE BEEN ESTABLISHED BASED ON THE FOURTH UNIVERSAL DEFINITIONS OF MYOCARDIAL INFARCTION. THE UPPER REFERENCE LIMIT (URL) OF TROPONIN, DEFINED THE 99TH PERCENTILE OF cTnI DISTRIBUTION IN A REFERENCE POPULATION, HAS BEEN CONFIRMED THE DECISION THRESHOLD FOR DE DIAGNOSIS. Performed By: #### C CHRISTIAN, GILBERTON #### [facility] [address] [place], [place] [address] Akin Aysha URINE MICROSCOPIC ONLYon Bacteria LM.HPF (Urine sed) [#/Area] MODERATE Abnormal NONE SEEN [facility] Comment on above: Performed By: #### I NFLUAB #### [facility] [address] [place] [address] Akin Aysha CAST NONE SEEN Normal NONE SEEN [facility] Comment on above: Performed By: #### I NFLUAB #### [facility] [address] [place] [address] Akin Aysha Crystals LM Nom (Urine sed) NONE SEEN Normal NONE SEEN [facility] Comment on above: Performed By: #### I NFLUAB #### [facility] [address] [place] [address] Akin Aysha CULTURE INDICATED Normal [facility] Comment on above: Performed By: #### I NFLUAB #### [facility] [address] [place], [place] [address] Akin Aysha Epithelial cells LM.HPF (Urine sed) [#/Area] FEW Abnormal NONE SEEN /RARE [facility] Comment on above: Performed By: #### I NFLUAB #### [facility] [address] [place] [address] Akin Aysha MUCOUS NONE SEEN Normal NONE SEEN [facility] Comment on above: Performed By: #### I NFLUAB #### [facility] [address] [place], [place] [address] Akin Aysha RBC (U) [#/Vol] 0-2 Normal 0-2 [facility] Comment on above: Performed By: #### I NFLUAB #### [facility] [address] [place] [address] Akin Aysha WBC (Bld) [#/Vol] 2-5 Abnormal NONE SEEN [facility] Comment on above: Performed By: #### I NFLUAB #### [facility] [address] [place], [place] [address] Akin Aysha CBC AUTO DIFFon 05-12-2019 Basophils (Bld) [#/Vol] 0.1 103/ul Normal 0.0-0.1 [facility] Comment on above: Performed By: #### C BC #### [facility] [address] [place], [place] [address] Akin Aysha Basophils/100 WBC (Bld) 0.7 % Normal 0.2-2.0 [facility] Comment on above: Performed By: #### C BC #### [facility] [address] [place], [place] [address] Akin Aysha Eosinophils (Bld) [#/Vol] 0.2 103/ul Normal 0.0-0.7 [facility] Comment on above: Performed By: #### C BC #### [facility] [address] [place] [address] Akin Aysha Eosinophils/100 WBC (Bld) 1.6 % Normal 0.9-7.0 [facility] Comment on above: Performed By: #### C BC #### [facility] [address] [place], [place] [address] Akin Aysha Erythrocyte distribution width (RBC) [Ratio] 12.1 % Normal 11.0-15.0 [facility] Comment on above: Performed By: #### C BC #### [facility] [address] [place] [address] Akin Aysha Hematocrit (Bld) [Volume fraction] 42.5 % Normal 36.0-48.0 [facility] Comment on above: Performed By: #### C BC #### [facility] [address] [place], [place] [address] Akin Aysha Hemoglobin (Bld) [Mass/Vol] 14.5 g/dL Normal 12.0-16.0 [facility] Comment on above: Performed By: #### C BC #### [facility] [address] [place] [address] Akin Aysha IG # 0.03 10e3/ul Normal 0.00-0.03 [facility] Comment on above: Performed By: #### C BC #### [facility] [address] [place], [place] [address] Akin Olmstead IG % 0.3 % Normal 0.0-0.5 [facility] Comment on above: Performed By: #### C BC #### [facility] [address] [place], [place] [address] Akin Aysha Lymphocytes (Bld) [#/Vol] 4.2 103/ul Critically high 1.2-3.8 [facility] Comment on above: Performed By: #### C BC #### [facility] [address] [place] [address] Akin Olmstead Lymphocytes/100 WBC (Bld) 36.2 % Normal 20.5-60.0 [facility] Comment on above: Performed By: #### C BC #### [facility] [address] [place] [address] Akin Aysha MANUAL DIFF REQ NO Normal [facility] Comment on above: Performed By: #### C BC #### [facility] [address] [place], [place] [address] Akin Olmstead MCH (RBC) [Entitic mass] 31.3 pg Normal 26.7-34.0 [facility] Comment on above: Performed By: #### C BC #### [facility] [address] [place], [place] [address] Akin Olmstead MCHC (RBC) [Mass/Vol] 34.1 g/dL Normal 29.9-35.2 [facility] Comment on above: Performed By: #### C BC #### [facility] [address] [place], [place] [address] Akin Aysha MCV (RBC) [Entitic vol] 91.6 fL Normal 81.0-99.0 [facility] Comment on above: Performed By: #### C BC #### [facility] [address] [place], [place] [address] Akinenio Olmstead Monocytes (Bld) [#/Vol] 0.8 103/ul Normal 0.3-0.8 [facility] Comment on above: Performed By: #### C BC #### [facility] [address] [place], [place] [address] Akin Aysha Monocytes/100 WBC (Bld) 7.2 % Normal 1.7-12.0 [facility] Comment on above: Performed By: #### C BC #### [facility] [address] [place], [place] [address] Akin Aysha Neutrophils (Bld) [#/Vol] 6.2 103/ul Normal 1.4-6.5 [facility] Comment on above: Performed By: #### C BC #### [facility] [address] [place], [place] [address] Akin Aysha Neutrophils/100 WBC (Bld) 54.0 % Normal 43.0-75.0 [facility] Comment on above: Performed By: #### C BC #### [facility] [address] [place], [place] [address] Akin Aysha Platelet mean volume (Bld) [Entitic vol] 8.7 fL Critically low 9.5-13.5 [facility] Comment on above: Performed By: #### C BC #### [facility] [address] [place], [place] [address] Akin Aysha Platelets (Bld) [#/Vol] 333 103/ul Normal 150-450 [facility] Comment on above: Performed By: #### C BC #### [facility] [address] [place], [place] [address] Akin Aysha RBC (Bld) [#/Vol] 4.64 106/ul Normal 4.20-5.40 [facility] Comment on above: Performed By: #### C BC #### [facility] [address] [place], [place] [address] Akin Aysha WBC (Bld) [#/Vol] 11.5 103/ul Critically high 4.0-11.0 [facility] Comment on above: Performed By: #### C BC #### [facility] [address] [place], [place] [address] Akin Aysha ER URINE PROFILEon 0 Bilirubin [Mass/Vol] Negative Normal NEGATIVE [facility] Comment on above: Performed By: #### I NFLUAB #### [facility] [address] [place] [address] Akin Aysha BLOOD Negative Normal NEGATIVE [facility] Comment on above: Performed By: #### I NFLUAB #### [facility] [address] [place] [address] Akin Aysha Clarity (U) CLOUDY Normal [facility] Comment on above: Performed By: #### I NFLUAB #### [facility] [address] [place] [address] Akin Aysha Color (U) LT. YELLOW Normal YELLOW [facility] Comment on above: Performed By: #### I NFLUAB #### [facility] [address] [place] [address] Akin Aysha ERUAHD A micrscopic examination will be performed if indicated. Normal [facility] Comment on above: Performed By: #### I NFLUAB #### [facility] [address] [place] [address] Akin Aysha Glucose [Mass/Vol] Negative Normal NEGATIVE [facility] Comment on above: Performed By: #### I NFLUAB #### [facility] [address] [place] [address] Akin Aysha Ketones Ql (U) Negative Normal NEGATIVE [facility] Comment on above: Performed By: #### I NFLUAB #### [facility] [address] [place] [address] Akin Aysha Nitrite Ql (U) Negative Normal NEGATIVE [facility] Comment on above: Performed By: #### I NFLUAB #### [facility] [address] [place] [address] Akin Aysha pH (Bld) 8.5 Normal 5-9 [facility] Comment on above: Performed By: #### I NFLUAB #### [facility] [address] [place] [address] Akin Aysha Protein (U) [Mass/Vol] Negative Normal [facility] Comment on above: Performed By: #### I NFLUAB #### [facility] [address] [place] [address] Akin Olmstead SPEC GRAVITY 1.015 Normal 1.005-<=1.025 [facility] Comment on above: Performed By: #### I NFLUAB #### [facility] [address] [place] [address] Akin Olmstead UR MICRO IND NOT INDICATED Normal [facility] Comment on above: Performed By: #### I NFLUAB #### [facility] [address] [place] [address] Akin Olmstead Urobilinogen Qn (U) 0.2 EU/dl Normal [facility] Comment on above: Performed By: #### I NFLUAB #### [facility] [address] [place] [address] Akin Olmstead WBC (Bld) [#/Vol] Negative Normal NEGATIVE [facility] Comment on above: Performed By: #### I NFLUAB #### [facility] [address] [place] [address] Akin Olmstead INFLUENZA A AND B AGon 05-11 INFLUANEGH SEE BELOW Normal [facility] Comment on above: Result Comment: Nega tive for Flu A protein angiten. Infection due to Flu A cannot be ruled out. Flu A angiten in the sample may be below the detection limit of the test. Performed By: #### I NFLUAB #### [facility] [address] [place] [address] Akin Olmstead INFLUBNEGH SEE BELOW Normal [facility] Comment on above: Result Comment: Nega tive for Flu B protein antigen. Infection due to Flu B cannot be ruled out. Flu B antigen in the sample may be below the detection limit of the test. Performed By: #### I NFLUAB #### [facility] [address] [place] [address] Akin Olmstead INFLUENZA A AG Negative Normal NEGATIVE SEE COMMENT [facility] Comment on above: Performed By: #### I NFLUAB #### [facility] [address] [id number] Akin Aysha INFLUENZA B AG Negative Normal NEGATIVE SEE COMMENT [facility] Comment on above: Performed By: #### I NFLUAB #### [facility] [address] [place] [id number] Akin Aysha INTERNAL CONTROLS Within Normal Limits Normal Wi thin Normal Limits [facility] Comment on above: Performed By: #### I NFLUAB #### [facility] [address] [place], [place] [address] Akin Aysha LACTATE/LACTIC ACIDon 2019 Lactate [Moles/Vol] 0.8 mmol/L Normal 0.7-2.0 [facility] Comment on above: Performed By: #### I NFLUAB #### [facility] [address] [place], [place] [address] Akin Aysha PROF CHEM 8 (BAS METB)on Anion gap [Moles/Vol] 9.3 mmol/L Normal [facility] Comment on above: Performed By: #### B MP #### [facility] [address] [place], [place] [address] Akin Aysha Calcium [Mass/Vol] 9.4 mg/dL Normal 8.4-10.2 [facility] Comment on above: Performed By: #### B MP #### [facility] [address] [place], [place] [address] Akin Aysha Chloride [Moles/Vol] 105 mmol/L Normal 98-107 [facility] Comment on above: Performed By: #### B MP #### [facility] [address] [place], [place] [address] Akin Aysha CO2 [Moles/Vol] 28.3 mmol/L Normal 22.0-30.0 [facility] Comment on above: Performed By: #### B MP #### [facility] [address] [place], [place] [address] Akin Aysha Creatinine [Mass/Vol] 0.81 mg/dL Normal 0.52-1.04 [facility] Comment on above: Performed By: #### B MP #### [facility] [address] [place], [place] [address] Akin Aysha EGFR-AF STATELESS >60 Normal >=60 [facility] Comment on above: Performed By: #### B MP #### [facility] [address] [place], [place] [address] Akin Aysha EGFR-NON AF STATELESS >60 Normal >=60 [facility] Comment on above: Performed By: #### B MP #### [facility] [address] [place], [place] [address] Akin Aysha Glucose [Mass/Vol] 111 mg/dL Critically high 74-106 [facility] Comment on above: Performed By: #### B MP #### [facility] [address] [place], [place] [address] Akin Aysha Potassium [Moles/Vol] 3.6 mmol/L Normal 3.4-5.0 [facility] Comment on above: Performed By: #### B MP #### [facility] [address] [place] [address] Akin Aysha Sodium [Moles/Vol] 139 mmol/L Normal 137-145 [facility] Comment on above: Performed By: #### B MP #### [facility] [address] [place], [place] [address] Akin Aysha Urea nitrogen [Mass/Vol] 13.0 mg/dL Normal 7.0-17.0 [facility] Comment on above: Performed By: #### B MP #### [facility] [address] [place], [place] [address] Akin Aysha Urea nitrogen/Creatinin e [Mass ratio] 16.0 mg/mg Normal [facility] Comment on above: Performed By: #### B MP #### [facility] [address] [place] [address] Akin Aysha XR CHEST 2 Von 05-12-2019 XR CHEST [...] by: Mayra DEGROOT Date: 2019-05-11 23:24 Normal [facility] DNA Extraction and holdon DNA Extraction and hold SEE BELOW Normal [facility] Comment on above: Result Comment: SPEC IMEN: BLOOD DNA EXTRACTION AND HOLD SPECIMEN TYPE: EDTA Blood Date Received: 12/28/18 EXTRACTION: DNA extracted from 3.0ml EDTA blood Method: Gent[employer]ali Puregene Reagents from [employer] ANALYSIS: DNA concentration: 571.4ng/ul Total volume DNA: 225ul (in TE buffer) DNA Purity 260/280 Ratio: 1.9 Total DNA yield: 128.6ug STORAGE AND SPECIAL INSTRUCTIONS: The extracted DNA is stored in the [facility] at -700C in the DS & EX 2019 box. Holding for future testing. Any questions regarding this sample, please contact [facility] at [phone]. VANESSA CUNHA 01/11/2019 Performed By: #### D NEXZ #### [place] [address] SURGICAL PATHOLOGYon 019 SURGICAL PATHOLOGY Specimen #: [id number] Submitting Physician: ASHWINI SIMONS M.D. FINAL DIAGNOSIS Soft tissue, left posterior shoulder, excision - Lipoma with fat necrosis, see comment. SAMRA/NACHO/rw 08/08/2018 COMMENT Many thanks for sending in consultation this case of a 89-mfur[age]twt-female with a lesion on the left posterior [...] Please call the Dermatopathology Consultation Service at [phone] with questions or if additional follow-up information becomes available regarding this patient. This case was reviewed in conjunction with the Dermatopathology Fellow, Dr. Clements. Fam Wong M.D. (Electronic Signature) SPECIMEN SUBMITTED A: 12 SLIDES ([id number]: [id number]) CLINICAL DATA None provided. Date of Report: 08/08/2018 Date of Procedure: 08/04/2018 Date of Receipt: 08/04/2018 Submitted by: ASHWINI SIMONS M.D. Location: Diagnostic interpretation performed at [place] [address]. CLIA Number: [id number] Normal [facility] Comment on above: Performed By: #### S #### See report for performing lab information. Vital Signs Date Time Vital Sign Value Performing Clinician Maurice villegas 04-15-2023 12:35-0500 Body height 152.4 cm Rhea Cuevasryland [employer] Work Phone: [facility] 04-15-2023 12:35-0500 Body mass index (BMI) [Ratio] 29.02 kg/m2 Rheakulwant Acostakimberly [employer] Work Phone: [facility] 04-15-2023 12:35-0500 Body weight 67.41 kg Rhea Moreno [employer]NEnvysion Work Phone: [facility] 04-15-2023 12:35-0500 Diastolic blood pressure 70 mm[Hg] Rhea Moreno [employer]NEnvysion Work Phone: [facility] 04-15-2023 12:35-0500 Heart rate 80 /min Rhea Chichi [employer] Work Phone: [email or web address] 04-15-2023 12:35-0500 SaO2% (BldA) [Mass fraction] 97 % Rhea Moreno APRN-CRITICAL CARE PARAMEDIC Work Phone: [facility] 04-15-2023 12:35-0500 Systolic blood pressure 116 mm[Hg] Rhea Moreno APRN-CRITICAL CARE PARAMEDIC Work Phone: [facility] [employer] Encounters Encounter Date Encounter Type Care Provider Facility Start: 04-15-2023 End: 04-15-2023 ambulatory [facility] Start: 04-15-2023 Encounter for other preprocedural examination [facility] Start: 04-15-2023 Telephone encounter Rhea Perez RN [facility] Comment on above: Surgical Or Dental C learance Start: 04-15-2023 End: 04-15-2023 Office outpatient visit 15 minutes Rhea CHONGCRITICAL CARE PARAMEDIC Work Phone: [facility] Comment on above: Preop examination (P rimary Dx); Paroxysmal atrial fibrillation (CMS-HCC); Near syncope; Atrial flutter, unspecified type (CMS-HCC) Start: 04-15-2023 End: 04-15-2023 Preprocedural examination done Rhea Moreno APRNKylieCRITICAL CARE PARAMEDIC Work Phone: [facility] Start: 04-07-2023 End: 04-07-2023 ambulatory Juan Violet Facility:[facility] Start: 03-03-2023 End: 03-03-2023 ambulatory JUAN VIOLET Not Available Start: 02-17-2023 End: 02-18-2023 ambulatory Lashell A Sajan ADVERTISING OPERATIONS MANAGER-C Facility:[facility] Start: 02-15-2023 End: 02-15-2023 ambulatory Lashell A Sajan ADVERTISING OPERATIONS MANAGER-C Facility:[facility] Start: 01-08-2023 End: 01-08-2023 ambulatory Lashell A Sajan ADVERTISING OPERATIONS MANAGER-C Facility:[facility] Start: 07-15-2022 End: 07-15-2022 ambulatory Trevon Pruitt Facility:[facility] Start: 07-15-2022 End: 07-15-2022 ambulatory MD Trevon Pruitt Work Phone: [facility] Work Phone: Start: 07-15-2022 End: 07-15-2022 Departed Referred MD Trevon Pruitt Work Phone: [facility] Path Spec Vitaly [facility] Start: 07-15-2022 End: 07-16-2022 ambulatory Trevon Pruitt Facility:[facility] Start: 07-09-2022 Patient encounter status Rhea Moreno PROSTHETIST-CRITICAL CARE PARAMEDIC Work Phone: [facility] Work Phone: Start: 07-09-2022 End: 07-10-2022 ambulatory Tien R [place] Facility:[facility] Start: 07-08-2022 End: 07-09-2022 ambulatory Lashell A Sajan ADVERTISING OPERATIONS MANAGER-C Facility: [facility] Start: 06-25-2022 End: 06-26-2022 ambulatory Lashell A Sajan ADVERTISING OPERATIONS MANAGER-C Facility:[facility] Start: 06-03-2022 End: 06-04-2022 ambulatory Lashell A Sajan ADVERTISING OPERATIONS MANAGER-C Facility:[facility] Start: 05-26-2022 End: 05-27-2022 ambulatory Lashell A Sajan ADVERTISING OPERATIONS MANAGER-C Facility:[facility] Start: 05-26-2022 End: 05-27-2022 ambulatory Lashell A Sajan ADVERTISING OPERATIONS MANAGER-C [facility] Start: 03-23-2020 End: 03-23-2020 Patient encounter procedure ADILIA PEREZ Facility:[facility] Start: 05-11-2019 End: 05-12-2019 Patient encounter procedure DELON DE LA CRUZ Facility:[facility] Procedures Date Procedure Procedure Detail Performing Clinician Start: 04-15-2023 Ecg routine ecg w/le ast 12 lds w/i&r Rhea Moreno PROSTHETIST-CRITICAL CARE PARAMEDIC Work Phone: Start: 05-12-2019 End: 05-12-2019 Microscopic examination of blood, culture DELON DE LA CRUZ Comment on above: Performed By: #### I NFLUAB #### [facility] [address] [address] [place] Plan of Treatment Date Care Activity Detail Author Start: 04-14-2024 Adult BMI Screening Adult BMI Screen ing [facility] Start: 04-14-2024 Tobacco Screening Tobacco Screening [facility] Start: 08-18-2023 End: 08-18-2023 Patient encounter procedure 08/18/2023 8:45 AM EDT Office Visit [facility] [address] [place] [address] Delon Pedersen MD [address] [place] [address] [facility] Start: 10-09-2022 Influenza vaccination Influenza Vacc ine [facility] Start: 10-05-2022 DTaP,Tdap and Td Vaccines (7 - Td or Tdap) DTaP,Tdap and Td Vaccines (7 - Td or Tdap) [facility] Start: 2008 Screening for malign ant neoplasm of cervix Pap Smear [facility] Start: 2005 Adult BMI Follow Up Plan Adult BMI Follow Up Plan [facility] Start: 1999 Depression Screening Depression Scre ening [facility] Start: 1987 Tobacco Counseling Tobacco Counselin g [facility] Payers Date Payer Category Payer Self-pay 2022 Medicaid [id number] 2021 Worker's Compensation WORKER'S C OMPENSATION WORKER'S [id number] ONLY [id number] 2021-Present [address] [facility] [address] [place] [address] [id number] 2002 Medicaid [place] [id number] 2002-Present [phone] [address] [place] [address] [id number] 1987 Unknown [id number] 2.16.840.1.794941.3.579.2. 593 1987 Unknown [id number] 2.16.840.1.999023.3.579.2. 593 1987 Unknown [id number] 2.16.840.1.826751.3.579.2. 1259 1987 Unknown [id number] 2.16.840.1.526448.3.579.2. 718 1987 Unknown [id number] 2.16.840.1.805604.3.579.2. 1987 Unknown [id number] 2.16.840.1.406586.3.579.2. 1987 Unknown [id number] 2.16.840.1.747718.3.579.2. 1987 Unknown [id number] 2.16.840.1.690162.3.579.2. 1987 Unknown [id number] 2.16.840.1.196539.3.579.2. 1987 Unknown [id number] 2.16.840.1.416446.3.579.2. 1987 Unknown [id number] 2.16.840.1.854851.3.579.2. 1987 Unknown [id number] 2.16.840.1.584853.3.579.2. 1987 Unknown [id number] 2.16.840.1.122547.3.579.2. 1987 Unknown [id number] 2.16.840.1.803655.3.579.2. 1987 Unknown [id number] 2.16.840.1.875434.3.579.2. 1286 1959 Unknown [id number] Social History Date Type Detail Facility [facility] Work Phone: Start: 1985 Sex Assigned At Female F [facility] Start: 10-29-2022 Tobacco [facility] daily [facility] End: 04-03-2020 History of tobacco use Cigarette Smoker [facility] Start: 2020 End: 10-29-2022 Cigarettes smoked current (pack per day) - Reported 0.5 [facility] Start: 10-29-2022 Tobacco use and exposure Smokeless tobacco non-user [facility] Start: 04-15-2023 Alcohol intake 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 of alcohol (finding) [facility] Start: 2020 End: 04-15-2023 Tobacco use panel [facility] Childcare Unknown [facility] Start: 1987 Sex Assigned At Not on file P [facility] Medical Equipment Procedure Code Equipment Code Equipment Origin al Text Equipment Identifier Dates Lux-Dx-06/05/2020 [id number] Start: 06-05-2020 Note 04-15-2023 Telephone Encounter - Rhea Perez RN - 04/15/2023 4:11 PM EST Note Date & Type Note Facility 04-15-2023 Miscellaneous Notes Formattin g of this note might be different from the original. Patient saw MARCOS in office today for pre-op clearance. [facility] had wanted to know if eliquis needed held for procedure and, if so, how long. Another nurse had left a . Staff from dr. Slade's office returned call. She is going to check with dr. Slade and call us back. Looks like [facility] sent clearance letter today saying okay to hold for 48 hours. documented in this encounter [facility] Telephone encounter Note 04-15-2023 Telephone Encounter - Rhea Perez RN - 04/15/2023 4:11 PM EST Note Date & Type Note Facility 04-15-2023 Telephone encount er Note Patient saw MARCOS in office today for pre-op clearance. [facility] had wanted to know if eliquis needed held for procedure and, if so, how long. Another nurse had left a VM. Staff from dr. Slade's office returned call. She is going to check with dr. Slade and call us back. Looks like [facility] sent clearance letter today saying okay to hold for 48 hours. [facility] History of Present illness Narrative 04-15-2023 Rhea Moreno APRN-CRITICAL CARE PARAMEDIC - 04/15/2023 12:30 PM EST Note Date & Type Note Facility 04-15-2023 History of Present illness Narrative Ariel Salas Date of visit: 04/15/2023 Date of : 1985 Age: 38 y.o. Patient Active Problem List Diagnosis Near syncope SOB (shortness of breath) Mass of subcutaneous tissue of back Lipoma of back Pyelonephritis Atrial flutter ([facility]) Paroxysmal atrial fibrillation ([facility]-HCC) Status post placement of implantable loop recorder - [place] Preop cardiovascular exam No Known Allergies Current Outpatient Medications Medication Sig Dispense Refill apixaban (ELIQUIS) 5 mg tablet TAKE ONE TABLET BY MOUTH EVERY MORNING AND BEFORE BEDTIME 180 tablet 0 levonorgestreL (MIRENA) 21 mcg/24 hours (8 yrs) 52 mg IUD 1 each. metoprolol succinate XL (TOPROL XL) 25 mg 24 hr tablet Take 1 tablet (25 mg total) by mouth in the morning. 90 tablet 3 Current Facility-Administered Medications Medication Dose Route Frequency Provider Last Rate Last Admin acetaminophen (TYLENOL) tablet 650 mg 650 mg oral Q6H Stan Dee MD Chief Complaint Patient presents with Pre-op Exam ov-pre ia-tfyunxywf-glyycczq-dr slade lfxdsei-1-82-[facility] History of Present Illness Ariel Salas is a 38-year-old female past medical history of vasovagal syncope, prior TIA with renal infarct in 2020, paroxysmal atrial flutter with CHADS2 Vasc score of 3 on apixaban, [employer] implanted loop recorder Patient presents today for routine follow-up and preoperative risk stratification She will be having a uterine ablation at [facility] later this month She does notice intermittent palpitations, this was particularly bothersome back in December when she switched her control. She had a couple brief episodes of what appear to be atrial flutter in March that she was asymptomatic from. She is inquiring about a potential ablation for her AFib/flutter. She has no cardiovascular complaints today. No chest pain or pressure. She was concerned about lower extremity edema that she notices at the end of the day after being on her feet at work. This does go away overnight. She has no shortness of breath. Past Medical History: Diagnosis Date Anxiety Atrial fibrillation ([facility] Dental disease lower dentures Depression Endometriosis Leaky heart valve Low blood pressure Near syncope Seasonal allergies Stroke ([facility]) 03/27/2020 TIA TIA (transient ischemic attack) Visual impairment glasses No data recorded No data recorded No data recorded Past Surgical History: Procedure Laterality Date DILATION AND CURETTAGE OF UTERUS 05/2017 EXCISION LIPOMA Left 07/27/2018 Performed by Stan Dee MD at [facility] 04/2018 Family History Problem Relation Age of Onset No Known Problems Mother Depression Father Asthma Daughter No Known Problems Son Diabetes Maternal Grandmother Heart disease Maternal Grandmother Arthritis Maternal Grandmother Heart disease Paternal Grandmother Depression Paternal Grandfather Breast cancer Maternal Aunt Autism Daughter Social History Socioeconomic History Marital status: Single Spouse name: Not on file Number of children: Not on file Years of education: Not on file Highest education level: Not on file Occupational History Not on file Tobacco Use Smoking status: Every Day Packs/day: 0.50 Years: 10.00 Additional pack years: 0.00 Total pack years: 5.00 Types: Cigarettes Last attempt to quit: 04/03/2020 Years since quittin.0 Smokeless tobacco: Never Vaping Use Vaping Use: Never used Substance and Sexual Activity Alcohol use: No Drug use: Not Currently Sexual activity: Yes Partners: Male control/protection: Inserts Other Topics Concern Caffeine Use Yes Social History Narrative Not on file Social Determinants of Health Financial Resource Strain: Not on file Food Insecurity: No Food Insecurity (01/06/2023) Hunger Screening Food Insecurity - Worry: Never True Food Insecurity - Inability: Never True Transportation Needs: Not on file Physical Activity: Not on file Stress: Not on file Social Connections: Not on file Interpersonal Safety: Not on file Housing Instability: Not on file Review of Systems Review of Systems Constitutional: Negative for malaise/fatigue. HENT: Negative for nosebleeds. Eyes: Negative for blurred vision and double vision. Respiratory: Negative for cough, shortness of breath and wheezing. Hematologic/Lymphatic: Bruises/bleeds easily. Musculoskeletal: Positive for joint swelling. Negative for joint pain, muscle cramps and muscle weakness. Gastrointestinal: Negative for bloating, abdominal pain, constipation, nausea and vomiting. Neurological: Negative for dizziness, headaches, light-headedness, loss of balance, numbness and weakness. Psychiatric/Behavioral: Negative for depression. The patient is not nervous/anxious. CARDIOVASCULAR: Please review HPI. Physical Examination General appearance: Alert, oriented and cooperative. Skin: Warm and dry to touch. Head: Normocephalic, without obvious abnormality, atraumatic. Eyes: Conjunctivae unremarkable, EOM intact. Neck: No JVD, No carotid bruit. Neck supple, trachea midline. Respiratory: Clear to auscultation bilaterally, no use of accessory muscles. Cardiovascular: RRR with normal S1 and S2 with no murmurs. Gastrointestinal: Soft, non-tender. Musculoskeletal: No peripheral edema. Neurologic: Oriented to time, person and place Psychiatric: Appropriate mood, memory and judgement. VITAL SIGNS: BP 116/70 Pulse 80 Ht 152.4 cm (5') Wt 67.4 kg (148 lb 9.6 oz) SpO2 97% BMI 29.02 kg/m Orders Placed or Reconciled This Encounter Medications levonorgestreL (MIRENA) 21 mcg/24 hours (8 yrs) 52 mg IUD Si each. There are no discontinued medications. IMPRESSIONS/PLAN 1. Preop examination - POCT EKG 2. Paroxysmal atrial fibrillation (CMS-HCC) 3. Near syncope 4. Atrial flutter, unspecified type (CMS-HCC) Paroxysmal atrial flutter / atrial fibrillation CHADS2 Vasc 3 on apixaban Rate control with metoprolol PACs Preserved LV function 55-60% TTE via 04/03/2020 History of TIA / renal infarct in 2020 [employer] implanted loop recorder Patient is low risk for upcoming surgery, okay to hold apixaban 48 hours prior to procedure and resume as soon as possible once deemed safe postprocedure. Continue remote monitoring Of her loop recorder, she has had brief runs of atrial flutter. Six-month follow-up in [place] with OLMAN Newell 04/15/23 2:44 PM Patient was seen when Dr Paz was present and immediately available in office suite. TODAYS ORDERS Orders Placed This Encounter Procedures POCT EKG FOLLOW UP Return in about 5 months (around 09/15/2023). PCP: OLMAN DURAN Referring Physician: OLMAN Duran [address] [place] [address] OLMAN Damon 04/15/23 1444 documented in this encounter [facility] Clinical Note 02-15-2023 Note Date & Type [...] develop this condition: ? Living in a penitentiary or other extended care facility. ? Having [...] at home: Medicines ? Take or apply vjgk-phz-vdbrksu and prescription medicines only as told by [...] provider. Document Revised: 05/24/2020 Document Reviewed: 05/24/2020 [employer] Patient Education ? 2022 [facility] [facility] 07-15-2022 Note Date & Type [...] pathology results. Trevon Pruitt M.D. JOB #: [id number] [Electronically Signed on: 07/16/2022 11:39 EDT] Trevon Pruitt MD [Verified on: 07/16/2022 11:39 EDT] Trevon Pruitt MD [Transcribed on: 07/15/2022 12:05 EDT] [facility] Medication management note 05-18-2022 Note Date & Type Note Facility 05-18-2022 Note Entered by Bharti Hernandes on May 18, 2022 08:25:49 EDT From: Radha Hernandes [facility]: [facility] [id number] Sent: 05/18/2022 08:25:49 EDT Subject: Medication Management Not Approved: Refill not appropriate, proposed to provider ethinyl estradiol-etonogestrel (ETONOGESTREL-EE VAGINAL RING) INSERT 1 RING VAGINALLY FOR 21 DAYS, THEN REMOVE FOR 7 DAYS, OR DIRECTED Qty: 3 unknown unit Days Supply: 84 Refills: 0 Substitutions Allowed Route To Pharmacy - [facility] [id number] Signed by Radha Hernandes From: [facility] [id number] To: Lashell Tanner CNP Sent: May 15, 2022 11:18:16 AM [...] Refills: 0 Substitutions Allowed Notes from Pharmacy: [facility] Evaluation note Note Date & Type Note Facility Evaluation note No assessment information [facility] Work Phone: Evaluation note Note Date & Type Note Facility Evaluation note Diagnosis Preop examination- Primary Unspecified pre-operative examination Paroxysmal atrial fibrillation (CMS-HCC) Atrial fibrillation Near syncope Atrial flutter, unspecified type ([facility]) documented in this encounter [facility] Instructions Note Date & Type Note Facility Instructions Not on filedocumented in this en counter [facility] Instructions Note Date & Type Note Facility Instructions Not on filedocumented in this en counter [facility] Summary Purpose Family History No Family History Records FoundNo Family History Records FoundNo Family History Records FoundNo Family History Records FoundNo Family History Records FoundNo Family History Records FoundNo Family History Records Found Advance Directives No Advanced Directives Records FoundLatest Code Status on File Code Status Date Activated Date Inactivated Comments Full Code 04/02/2020 4:24 PM 04/05/2020 6:23 PM Chief Complaint and Reason for Visit Chief Complaint N63.25 Additional Source Comments INFORMATION SOURCE (unrecogn ized section and content) DATE CREATED AUTHOR 08/09/2018 [facility] DATE CREATED AUTHOR 'S ORGANIZ ATION 01/13/[address] 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 Start Date End Date Lashell MoellerANETTE-CRITICAL CARE PARAMEDIC [address] [place] [id number] PCP - General Family Medicine 01/22/21 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 Start Date End Date Lashell MoellerANETTE-CRITICAL CARE PARAMEDIC [address] [place] [address] PCP - General Family Medicine 01/22/21 Goals (unrecognized section and content) Goals may be documented in a n alternate sectionNot on filedocumented as of this encounterNot on filedocumented as of this encounter Reason for Visit (unrecogniz ed section and content) Reason Comments Pre-op Exam ov-pre op-clearance- ablation-dr slade lvyscui[facility] Reason Onset Date Comments Surgical Or Dental Clearance 04/15/2023 FOR RECORDS PERTAINING TO PATIENTS WHO ARE [...] BE BASED ON THE PRIMARY CLINICAL RECORDS. [facility] [facility]. provides no warranty or guarantee of the accuracy or completeness of information in this document.
[2023-04-21 10:40] LABS: Basophils Percent Auto 0.4 % (0.2-2.0); Eosinophils Absolute Auto 0.1 10^3/uL (0.0-0.7); Eosinophils Percent Auto 1.8 % (0.9-7.0); Hematocrit 43.1 % (36.0-48.0); Hemoglobin 14.2 g/dL (12.0-16.0); Immature Granulocytes Abs Auto 0.02 10^3/uL (0.00-0.03); Immature Granulocytes Pct Auto 0.3 % (0.0-0.5); Lymphocytes Absolute Auto 2.6 10^3/uL (1.2-3.8); Lymphocytes Percent Auto 35.8 % (20.5-60.0); Mean Corpuscular HGB Conc 32.9 g/dL (29.9-35.2); Mean Corpuscular Hemoglobin 30.3 pg (26.7-34.0); Mean Corpuscular Volume 91.9 fL (81.0-99.0); Mean Platelet Volume 8.4 fL (9.5-13.5); Monocytes Absolute Auto 0.6 10^3/uL (0.3-0.8); Monocytes Percent Auto 8.6 % (1.7-12.0); Neutrophils Absolute Auto 3.9 10^3/uL (1.4-6.5); Neutrophils Percent Auto 53.1 % (43.0-75.0); Platelet Count 296 10^3/uL (150-450); Red Blood Count 4.69 10^6/uL (4.20-5.40); Red Cell Distribution Width 12.4 % (11.0-15.0); White Blood Count 7.3 10^3/uL (4.0-11.0)
[2023-04-21 10:57] LABS: INR 1.02; Partial Thromboplastin Time 33.9 sec (22.3-36.2); Prothrombin Time 10.8 sec (9.0-11.6)
[2023-04-21 12:41] LABS: Anion Gap 12.6; Carbon Dioxide 28.1 mmol/L (21.0-32.0); Chloride 103 mmol/L (98-107); Estimated GFR (African America >60 (>=60); Estimated GFR (Non-African Ame >60 (>=60); Glucose 106 mg/dL (74-106); Potassium 4.7 mmol/L (3.5-5.1); Sodium 139 mmol/L (136-145)
== END 2023-04-21 09:57 | disposition home or self-care (01) ==
PROVIDERS: Visit Provider Obstetrics & Gynecology
DX: Z01.812 Encounter for preprocedural laboratory examination (principal); N92.1 Excessive and frequent menstruation with irregular cycle; R10.2 Pelvic and perineal pain; N93.9 Abnormal uterine and vaginal bleeding, unspecified
CPT/HCPCS: 80048; 85025; 85610; 85730

== ENCOUNTER 2023-04-30 09:03 | Day surgery (SDC) | payer OTHER, SELFPAY ==
[2023-04-21 10:03] VITALS: BP 102/73; PULSE 77; RESP 16; TEMP 36.4; O2SAT 98; BMI 28.8
[2023-04-30] VITALS (13 sets, daily range): BP systolic 99–151; BP diastolic 43–89; PULSE 65–94; RESP 12–21; TEMP 36.2–36.7; O2SAT 93–99; BMI 29.4
--- OUTSIDE RECORDS SUMMARY | 2023-04-30 09:09 | XMS_ITS | CCD ---
Author Organization [facility] Care Team Providers Care Rag Room Supervisor Name Role Phone BIN DE LA CRUZ Attending Unavailable BIN DE LA CRUZ Consulting Unavailable BIN DE LA CRUZ Admitting Unavailable CHERYL DEGROOT Consulting Unavailable SERA PEREZ Attending Unavailable SERA PEREZ Consulting Unavailable SERA PEREZ Admitting Unavailable OSMAR FLORES Primary Care Unavailable Carmencita Hernandez Consulting Unavailable MD Trevon Pruitt Attending Provider [phone] ABI SLADE Attending Unavailable Trevon Pruitt Admitting Unavailable Trevon rPuitt Attending Unavailable Sajan COUNSELING DEPARTMENT CHAIR-C, Lashell A Primary Care Unavailable Sajan COUNSELING DEPARTMENT CHAIR-C, Lashell A Primary Care Unavailable Sajan COUNSELING DEPARTMENT CHAIR-C, Lashell A Attending Unavailable Sajan COUNSELING DEPARTMENT CHAIR-C, Lashell A Admitting Unavailable Sajan COUNSELING DEPARTMENT CHAIR-C, Lashell A Primary Care Unavailable Sajan COUNSELING DEPARTMENT CHAIR-C, Lashell A Admitting Unavailable Sajan COUNSELING DEPARTMENT CHAIR-C, Lashell A Attending Unavailable Sajan COUNSELING DEPARTMENT CHAIR-C, Lashell A Primary Care Unavailable Ezekiel Wasserman REdda Admitting Unavaila Ezekiel Fontanez REdda Attending Unavaila ble Sajan COUNSELING DEPARTMENT CHAIR-C, Lashell A Primary Care Unavailable Sajan COUNSELING DEPARTMENT CHAIR-C, Lashell A Attending Unavailable Sajan COUNSELING DEPARTMENT CHAIR-C, Lashell A Primary Care Unavailable Sajan COUNSELING DEPARTMENT CHAIR-C, Lashell A Attending Unavailable Sajan COUNSELING DEPARTMENT CHAIR-C, Lashell A Primary Care Unavailable Trevon Pruitt Attending Unavailable Sajan COUNSELING DEPARTMENT CHAIR-C, Lashell A Referring Unavailable Trevon Pruitt Attending Unavailable Sajan COUNSELING DEPARTMENT CHAIR-C, Lashell A Primary Care Unavailable Tien Felix Admitting Unavailabl e Tien Felix Attending Unavailabl e Sajan COUNSELING DEPARTMENT CHAIR-C, Lashell A Primary Care Unavailable Sajan COUNSELING DEPARTMENT CHAIR-C, Lashell A Primary Care Unavailable Sajan COUNSELING DEPARTMENT CHAIR-C, Lashell A Admitting Unavailable Sajan COUNSELING DEPARTMENT CHAIR-C, Lashell A Attending Unavailable Sajan COUNSELING DEPARTMENT CHAIR-C, Lashell A Admitting Unavailable Sajan COUNSELING DEPARTMENT CHAIR-C, Lashell A Attending Unavailable Sajan COUNSELING DEPARTMENT CHAIR-C, Lashell A Primary Care Unavailable Abi Slade Attending Unavailable Abi Slade Admitting Unavailable Trevon Pruitt Admitting Unavailable Trevon Pruitt Attending Unavailable Lashell Miranda Primary Care Provider ARUN MORENO Attending Unavailable LASHELL MOELLER Referring Unavailable LASHELL MOELLER Primary Care Unavailable Allergies Allergy Classification Reported Allergen(s) Allergy Type Date of Onset Reaction(s) Facility (1 source) No Known Medication Allergies; Translations: [No Known Medication Allergies] Propensity to adverse reactions to drug (disorder) [facility] Repository Medications Current Medications Medication Drug Class(es) Dates Sig (Normalized) Sig (Original) acetaminophen 325 mg oral tablet (2 sources) Start: 07-27-2018 acetaminophen (TYLENOL) tablet 650 mg apixaban 5 mg oral tablet (2 sources) Factor Xa Inhibitor Start: 11-30-2022 take 1 tablet by mouth once daily at bedtime apixaban (ELIQUIS) 5 mg tablet Indications: Atrial flutter, unspecified type ([facility]) TAKE ONE TABLET BY MOUTH EVERY MORNING AND BEFORE BEDTIME 180 tablet 0 11/30/2022 Active levonorgestrel 0.913597 mg/hr intrauterine system (2 sources) Progestin, Progestin-containi [...] POCT EKGOrdered By: Keily Herrera on 04-15-2023 [facility] Abner 04-07-2023 L Specimen: [id number] Received: 04/08/231239 Status: SOUT Req Num: [id number] Spec Type: Surgical Subm Dr: Abi Slade Tissues: A Endometrium - Biopsy (EMBX) Procedures: HE/2, Gross/Micro L4 Age/ Patient Sex Location Account Attending Physician Ariel Salas 38/F LABELL [id number] Abi Slade SPEC NUM: [id number] RECD: 04/08/23 STATUS: SALIMA AUSTINJoseph NUM: [id number] CRISTINA: 04/07/23- SUBM DR: Abi Slade ENTERED: 04/08/23-[address] [facility] [address]: Ajit,Lab SPEC TYPE: Surgical DEPT: [...] in one cassette labeled A1. CPT Codes 94551 Specimen: [id number] Received: 04/08/23 Status: SALIMA Kilpatrick Num: [id number] Spec Type: Surgical Subm Dr: Abi Slade Tissues: A Endometrium - Biopsy (EMBX) Procedures: HE/2, Gross/Micro L4 Patient: Ariel Salas [id number] (Continued) Signed (signature on file) Micheal Napier MD 04/10/23 1211 [facility] Coding Summaryon 03-04-2023 Coding Summary HTMLBase 64 OxkmhkoyQTx5iRb+PGhlYWQ +XB8NMINhN48fxATzyW0sX7 NMTElOSywgQVBQTElOSyIgb hQrUG5rxTLiETTj IC8+OH3dTOGjTuotyBLyc4T 6jZR3W79pod7iTXgjbUN8KX McCmQxuaidt0irkOu5YWiyA mluOyBt GGBukO14SFR4wU59Ea33zSS mdSMza0vzsJq8PqKrLXJgVQ J8fTlkMLsim6FoITXqE77vi NYir4U8 CSSzpSbhxRGzXdEpbUL4oF7 qJYkcxsrcj7hdywsgAxy3bg 72wOFws0S0nJK5F0AqweJ2X GJvbGQg GwuukEQHvV5emucad4txrwm hGhXxEFOrHQg1JPn5LRIsmB tbCdEoJQ11DJW8XPXwbvQxW 2FsLWFs aSqpJbP5z6S7Qc6CB9LZGvg jB6OBMBMVJIwxeRA+PC90cj 77I9OiRdaqSyc1EQWiKIG4l LA3nB6u IKBxHXyeg9J9dGP2E8WnjuN xin1bw1wnPRMsNYynY39kqS Usi5B8KHCweJV9LBWcqEvnW iBzaG93 Oyc+EJTqrKvmv5RpOiyem8u re8seaGz4GmvtOUGosmOfsH hqPSQ6h9KgBh3jTBNjkSD5s QS5aY8n DcAmFbG4ANivQ444SoZniLB jMgqlF01tY8IodJP+PHRyPj c8XPXfnXfdWE9fR8AzUPCya mctbGVm nZkfML2zIOWlxzflYWNhjO5 wLIMzA7x7TsZfDxD2SQmcT3 BwXUSnxtoeTr17wO8mOvAiV jL5RBmu W6OpilJ3LFTbvUTgPAnzKKD 8P81mo5N6WTEeZCYbPDA3hX C8gE7fhKyhdfqgcRXreHavq mVydGlj OBbsVBmdT146AURnaMvmHdB vZGluZyBEYXRlOiAgMDEvMj UvMjAyNDwvdGQ+ISVmGYB3t WxlPSAn tKKvDBnzFg2lfNrhgWdaCA3 cTZStiwixVHHyyS3iEJOxvJ DrpQvxEM8bKGFngztsc270U iAxMHB0 KKDhyZZfW4SqrL4aTjKsFYU pJGXtY6EeyAQqSDxdP460KC wnPuH2ZUYpcuOcV0JwTMGls WduOiB0 n4K7Ho7Bi0BqbmtzA3FnnQW zNfKrHnxiWIv1D7BpKzdtrI I+IM98OZYfYN21AGq0YFM3q WxlPSdi FZGkM2IzbY4lMtJzRTCcNTF kOyc+PHRhYmxlIHdpZHRoPS ndTDJzWqOupHivKH0oUr8pO GVyLWNv dTaytZRoLmNnc8ftKSCrIGh fED0cyYlrI5SpaAS9ALQlg2 o9En05C04fD8XllNX+PGNvb UY7yYQ4 eF6tZvOhBeN4UDrkN193IhD nsZQzXeisc8euz1jepHd4Yy Q9RNTsklJnpEujUHP7m7MrF t10I86j IHdpZHRoPSIxNSUiIHZhbGl zba5pfA7qRh3+KXYnhTB9mD M2cH4rSbFbGwB1KVwdW556J nRvcCIv Yxasd4gye8afcXs0KiJuHNO tyfPhvRtaRBW5b4IrZw59R3 PywMgqi8PjBmf6ld39nCLgm 7K1pPX8 O3YyBIOlwptshJNybHkqUS4 fYYGayevqYQDfgR6fXPObI1 o2StMxIqV8PCvyG7ZxqzZ7Q GJvbGQg DCBweXFOzW8dfcqtd6ppmgg qSvNwNJOlARn3FLf6WDBliJ ytHkNiIHH0CdA4USR1xBVfx P4wdMeu kmyisG5eTxq+LVZ9pBSnmJF KLV6lZyqzkUQ+MCBsOCU7dD goTVaqOKHomO7uRCPeB2l2T iAwLjA1 GXjuC9UvtkZ0PORtfPNlIVC exSSZnY3infcka7lybodnFt AxGSUmDJh9MCs0JEUxsDfvE iBsZWZ0 KxN2DQM1qJIptP3gkXlfmky onR3lNwa+RnbzxWcuFPD2AL o4Y6ZrQer3UOKgsVvdEU4gu GFkZGlu Vg1chZaqhOhrYO3iDEJensk gm507NlSnk5jbIOJywDAxEQ sbHIR3E36wa2I0HTUyVQWaG IZ3wGD5 hG4fbQynmurwaTRzkNlutiN xoZqvZTykNJuxQ300RRVmeZ bnScHiHEg2M6NgDtq9RNTqj ByzMG5k hMBuHPluEv0tpQraeOipLY0 rSBMzxgcvy139MvYtn1ftDH LjqHBeGBztMVH0C24vy5E5Z CMwMDAw IGK8lWY8nL8nkUivzejlwKZ mdDsgdmVydGljYWwtYWxpZ2 52VDQccQdoHmVnlWw1L7ZzB xu6GGLw hIyaOA6vgTFjIPtnZh5hrQd ykFrqLT9wYTAipcxdj470Tp Rns2xeNSTdrTDkFJvgFFE7B 28nm6P4 KKIiOWZsJBR9zXX4aQ6kuIu nbjogbGVmdDsgdmVydGljYW gfPSikC926XCNpbCdbWmRqb GllbnQg AAmoRVs9P7FmLpmuwZV+PC9 6JNUkST69uHXnhDGul7gheM m5JxGmJBYjXOG5bXqxXUnon 3JkZXIt C67ijHJof3Y0IDAzwWomiLI vPmIelIQ1aZ0iYKvbijkge8 bhfemsNhcco8trai51kT41D 29sIHdp ZHRoPSIzMCUiIHZhbGlnbj0 ryQ2kVf5+FIGcwIY2gTM4nF 6rKITwBtE3LSrfJ330HbKhd CIvPjxj g1loq8pxxIs5SsG6YOEnrxH zxIbzLSW1l2IaQe17X51gIK dpZHRoPSIyMCUiIHZhbGlnb x2ifM1q Ii8+NZPhmCP9cOB8jW3wPaT fMuH6GMunW795CkWtwCZjMm rnI93uJ0YfbAM+WJUmEsu1C CBzdHls ZU4kbHUzSGqcJe7qIDD5GkZ lJyZeZAdjD7FePPKuywlmju ciiQB5QDSzXUVnyG80Lr2gm DogMTBw pXFHqJ6xecmca2kbverlCgM uESGvHQv4KRd5SGZpbCxoYe IiBLL7FjT0ZUY6lREdqU5ct Glnbjog bM9uF9IgWZTpmvryLj72gC1 nRmAkXjU6BIakPqa+TUlMTE VSLCBTSEFXTkVMTEUgRTwvd GQ+PHRk ALC2iQxiNUqcEBSrtS2aQLT yF6s9XzYhAuW0OAfnL2DdJN PfxzwtWw80oE1bNgYvIxG9Y JkqJ6Vs bjT7SUHmbPMcTTibZQK1B32 nt2C5QLExOJAoYQS3nKF3aZ 1hbGlnbjogbGVmdDsgdmVyd GljYWwt NQprX758FQAldJbbRrKuSuL bOcN9HQs8Q5YoZqn3KWZrhP gkMM2wpOBvKVlaSj1muXmky VsjYJ4w WUMicmwgDVOocB8bGNNjvCO jwSdrOD0aPTKfdpqeb340Wo UqPBA5WZXsePJjT7KayS1mN iAjMDAw JSEgX3LwhMXwYIvbK679FKe xBoE3MHApukFaI1JdXQHhvJ adFoB2a7K2Jv0eXKYWEVNkk zwvdGQ+ DLAiRUO8yYdhNPhyKZLotQ4 oJSOrT9f6WqLoGtH5NSrpG7 JkMBJsftxcMd72tL7rDyKrD pG0PAcz J2UxveR2WJPrlAKvYHlcBPC 3B51bb3O4NFHcPZQyVVC4hD C4zA6ddIojgoebdJIbuVndr mVydGlj JIwzNMyzV933DEXutMieThH FTUFMRTwvdGQ+JFBePXQ7gP kyBPmyGRXccF5oRZDxR9d4Y iAwLjA1 SDhxL8KsCXTfsiefJh71sB6 dKfEtYkF9TVteY2CdmoY2YJ MslRJpRDeuEYS4T56rt5Q0E CMwMDAw BIO2sIZ0hH3jqBiiyrsbiHB mdDsgdmVydGljYWwtYWxpZ2 11LKQskDvbXk2DSF33YN33N 3RyPjwv dGFibGU+PHRhYmxlIHdpZHR iWZgcJOZzEsQusRqlRN1bNe 9yZGVyLWNvbGxhcHNlOiBjb 2xsYXBz DSqsSZ6krHasS3TeuWB0NQC dp9h3Tf64X05tX0ElsIA+PG CyaJG7gTK6pW1gMuHuMjX5L CqvZ930 EiLpaMFvRtomj7tpw0cvzGh 6LySxGMKqqqLtnAygJPZ9v8 SqUk94N70xJFjoKFMnHNTxN CUiIHZh hVdceg3krF4bEf9+PGNvbCB 4aRT4vA2uWlJdBbR2RFwmS3 31IjFkhCEpUpcdL76nT9Zsw XA+PHRy Utj5ITIauJfqTV1ggYDfOCf eOe0yTGP2SjJbYdVyMPykA8 WjHPResxdzpickfSV6VSBqK DUwaW47 Su5qcUpoSp9tPYQcBNH9IKW dyWLtA7VnfX0wUpSdLUXiIM LiT9QnhVFeESynG637ZHhlH uC2ONLw wwPvO1RsSRIhyFkvNyS4f3V 3Py5GxBxifVUzKT0gPtWyBC z9P4RzQlz8WYWufOfzPV9lv GFkZGlu Iw7gqOqxrZyyRO4aFWVuzhz mh198FeVsq5lcVIXhzBVbYW xsJOB9W06xz7X0FLYbKBFpN VG1mVO6 vG6qfZkjrivlxUUosTqyilA kuOalBPwiUXumG019XOUnaZ aeWuCOSfv4T2BtPrv9UWAll JldRY6v dQDjXSdyFm3pwGosvOyfRX9 wYHCjadxtw987RyGls1amHR TyfTZwUAelLUV0I65mi7X7Z CMwMDAw KOV8hKP4kF9vnDocizzxrSR mdDsgdmVydGljYWwtYWxpZ2 78JXKwjJhcUk9NFve0C0SvH ab7XYOe yJphSY9wuGCdATzmCw4vaUy qkXqjXF7nAGQujagon486Jc Wlf0sfZMKkxFFdPWkhLIM6W 60md4Q5 RWQyANKmGSI7kOV8vL9dvJt nbjogbGVmdDsgdmVydGljYW cuXZiwR698YTXphQjqYvSoe WVyOjwv dGQ+SN27op14J1SxHnsrTog 6CURkYYG1fBF9jU7eQIIeHH icq9X3vYO6K1EsxnTvpy3qz 2xsYXBz ZTo (more content not included)... Normal [facility] Patient Handouton 02-17-2023 Patient Handout Dermatology Pityriasis [...] instructions at home: ? Take or apply cfnh-hgt-vdzqxjb and prescription medicines only as told by [...] provider. Document Revised: 07/22/2021 Document Reviewed: 11/20/2020 [employer] Patient Education ? 2021 [employer] Normal [facility] ED Clinical Summaryon 2023 ED Clinical Summary [facility] ? Urgent Care [address] [place] [address] Clinical Summary PERSON INFORMATION Name: ARIEL SALAS Age: 37 Years Sex: FEMALE : 1985 MRN: Acct#: Visit Reason: Skin; RASH Arrival: 02/15/2023 11:21:04 Discharge: 02/15/2023 12:00:00 LOS: 000 00:39 Check In: 02/15/2023 11:21:04 Checkout: 02/15/2023 12:00:00 Address: [address] [place] [id number] PCP: Lashell Tanner PROVIDER INFORMATION Provider Role Assigned Unassigned Nallely Crow COATER ASSOCIATE Nurse 02/15/2023 11:28:03 Ezekiel Wasserman ED PA [...] Adult Follow-Up: With: Address: When: Lashell Tanner [address] [place] [id number] Within 3 to 5 days Comments: Diagnosis [...] verbalizes understanding of instructions given Comment: Normal [facility] ED Patient Summaryon 024 ED Patient Summary [facility] ? Urgent Care [address] [place] [address] PATIENT DISCHARGE INSTRUCTIONS Patient Information Name: ARIEL SALAS Age: 37 Years Date of : 1985 Reason For Visit: Skin; RASH Arrival Time: 02/15/2023 11:21:04 Primary Care Physician: Lashell Tanner Attending Physician: Ezekiel Wasserman Comment: Patient Education With: Address: When: Lashell Tanner [address] [place] [address] [id number] Within 3 to 5 days Comments: Diagnosis [...] develop this condition: ? Living in a senior care or other extended care facility. ? Having [...] at home: Medicines ? Take or apply jiyo-fgn-xeiveed and prescription medicines only as told by [...] care provid (more content not included)... Normal [facility] Recordon 024 Urgent Care Record [facility] ? Urgent Care [address] [id number] PATIENT DISCHARGE INSTRUCTIONS Patient Information Name: ARIEL SALAS Age: 37 Years Date of : 1985 Reason For Visit: Skin; RASH Arrival Time: 02/15/2023 11:21:04 Primary Care Physician: Lashell Tanner Attending Physician: Ezekiel Wasserman Comment: Visit Diagnosis: Diagnoses This Visit Scabies (B86) Skin (5MZiiETcjJU1qFnHr7kusp ) If you received any narcotics, sedation, [...] legal documents With: Address: When: Lashell Tanner [address] [place] [address] Within 3 to 5 days Comments: Diagnosis [...] and treatment you received today in the [facility] were for an urgent problem and are not intended as complete care. It is important for you to follow up with a doctor, nurse practitioner, or physician?s family law legal assistant for ongoing care. If your symptoms [...] so we can reach you if necessary. [facility] has provided you with a complete list of medications post discharge. Please inform your physician primary care sports medicine/provider of your visit and for further instruction on these medications. Any specific questions regarding your chronic medications and dosages should be discussed with your primary care physician(s) and/or pharmacist. New Medications [facility] [id number], [address] [place] [address], [place] [id number], [phone] cetirizine (ZyrTEC 10 mg oral tablet) 1 [...] hot then vomi (more content not included)... [facility] Reminder Messageson 01-21-20 Reminder Messages Entered by Palak López RN on January 20, 2023 13:38:33 EST order placed by PCP From: Palak López RN (General Surgery Clerical Pool ([facility] To: General Surgery Clerical Pool ([facility]); Sent: 07/21/2022 14:02:43 EDT Show up: 01/20/2023 13:02:00 EST Subject: mammogram Reminder: Please call patient to: Please schedule patient for: repeat left breast diagnostic mamm Please ask patient to: Results Follow up Required for: Visit Summary For ARIEL SALAS Age: 37 years Sex: FEMALE : 1985 Address: [address] [place] [address], [facility]: Work: -- Primary Care Provider: Lashell Tanner Race: White Ethnicity: Not or Language: Afghan Health Plan: 1?MEDICAID [facility], 2?MEDICAID [facility] Outside Recordson 08-19-2022 Outside Records [id number] [facility] 3 Lab - [facility] Results [id number]#1.00OT [facility] Pathology Sendout Teston Pathology Send Out. See Report [facility] Comment on above: Order Comment: Lt br east bx 600, samples x2 taken at 835 Performed By: #### 2 [id number] ####[facility] (DEFAULT)[address] [place] [address] Coding Summaryon 07-30-2022 Coding Summary HTMLBase 64 TokowgzuHQv8yKy+PGhlYWQ +ON6ACWOsE07whUEipJ2pR5 NMTElOSywgQVBQTElOSyIgb jGzKE6srWUwAWSr IC8+ZT6kKAAyOemhaQWcp7C 1nKJ2N74atc8gLSkyhAE6NS RjLmUwikbtl1ayzAo6VBpeA mluOyBt IUBhsB61NKA0pN35Gj79mFX oxNPtt6bsbBa1VnTmJDMaHT F3vQxmKHbxt1MfCQYpV67bv VDrh9B8 JCLoaQthnLTxGcSjdGI6tL9 gGVqqbiqtu0mncegwSna3wn 63kVXpm9A7yLV7S3KserW7L GJvbGQg EnjpxEHFvR9ixhfiv6ohrnj rOoZsIZZeNUl6USh9GFKhiH bdDbYySV64IVE1ARSbonFjQ 2FsLWFs sDndSeQ0n9N9Xl2KE3FKMsd cE5IQXCAUIRszhWV+PC90cj 29D5LkTyqqIwa6WCWjYPF1e TT8vL6p RYOgPNxen4X9qDU5P0CgvvX ofy0wc1ogIQDqJXfqD26lgC Pau3B6CRWwyZE3SPSybLggD iBzaG93 Oyc+CHBwlFycy6NnVgosb1n jc9mhoHm1LvawUSGcpuZnsA nyKAB2m6WdQy7eLOKnkXX8s FJ4hT0j KoGeUgG4SLddV482WdTsjMC vItbkV12uL4GruWH+PHRyPj u7MZRyaFgvRA6fF0JdNYKbz mctbGVm mZpoUT9pTTUvjwpoWCBgfE8 bWVCaP4e9XbYaLsV3HHluO8 AaVVOttpjxAk55pD1jXoFwX iP7OZmy I4IjsmW5FCLlwXHhSSfjLVC 0H76xz5H2QVQpYARiJSX8mK U9wX2kcPvblmyltSCqjMxjn mVydGlj YXqkBAbcS250PWOtiLxyKhI vZGluZyBEYXRlOiAgMDYvMj IvMjAyMzwvdGQ+DYOxUGX3c WxlPSAn vSZnYVenOk5alOalzIzpTD9 jGZHvklcbXNItuP2lBXWezM MxfNtzOJ5eELIqqllit397V iAxMHB0 ASBloAOhX1WplJ0iZdVqRMI dDQAlV1VftZXpZIqdY838VO enLqK3CGGmzcVvN2WwVQLkx WduOiB0 r4F4Ve7Gm4AhiuxeM2MiaQA iNjBxWgkbPOi6B4YwBesulO I+AZ55GBMbWP96JUo6IST5c WxlPSdi IYUdB2ZnrF7yQkLpFKAoYIE kOyc+PHRhYmxlIHdpZHRoPS usLWZhSkIjiDyfQL9iSp2hM GVyLWNv uZsoeXBuJpYcw3rcWESyZIn iKR3qkKhnK5EbfQW2VFDfl6 x8Yz29T35mC4GqjVI+PGNvb KP6oWT0 fY4lGpBrUpX1NBczP104NaW fmDRhYmhhv1yue3rghGh7Fn V9CBIoliIqaGoyTTW4t5XmO l68H44m IHdpZHRoPSIxNSUiIHZhbGl vkx9efS4fQx2+EFBwqPJ8uT W1lO7rNiHgXdB4CWwwY388R nRvcCIv Neahh0gat7rviMz9EqWiNZU cueOvnKwlSLB2c2XjXu30W8 StwSwtf7PmUnm6sk35jZZwl 8U3sOT0 G2ByQHEwcqgczKWwdLunAS3 eTIKvyugyGLLnwU1nBYDkP8 h7JgUtDaK7RHwhT4BmapT2V GJvbGQg TEIwrANXnC6tomvee8pamhy mBuQgWJJaDSv4GQl8PNJqbU pfXmUfEYC5RoC4PHX1qNJcp J8xyDds qynsmY2iWgj+QSX8kJYmsKH RFU0fBtmbdJB+OWTrHNA2kY veDCtzLCAdlW9kGZZxM8v5V iAwLjA1 IOvoU3HqcmH1VIUkaPMzFAH cpLUJbN6vnrief9dvpmuwEr JnTBAwENz8WPq6BEGajHkeA iBsZWZ0 HhH5ZGC3jSXnbX7ihCoijsz qdE3sCyj+ZplxoLydGEV0SX w5G8TzCmj4FSXvfYssBA9we GFkZGlu Xv2ngIqiiEznEU8pLMJsiuh rb042NlOng6kyAKBukKGyDH oxHGN6K44ms7O7EXWsTHUkT IL7jRQ1 eU0nsJmfxwdebWEgxGehrbL fpSbmLBfbAWxeT443NOKxdU tlIcKrHQu8O2LcJcu9GGYlb RfmEN1h eKRaEEcrOg1lgUvcuCxyAX8 vUVNezbhsj684AePvm4nzGV HicKIuCKlaXJY3J39re4P8P CMwMDAw EDC2cTI4eQ6rvKhqsshbqBG mdDsgdmVydGljYWwtYWxpZ2 32NQWgzEsrAzDoaHc4Y7DfF fm4ZCNm oBtwBE1xnCPxRQigBq9lhUd fvWvzYG5zXPTpzazuf887In Vlk4xxBNXaxUBfNAabLMD1N 34kl6D5 KPQbAHSkSNQ4pXU6dD1cgNq nbjogbGVmdDsgdmVydGljYW jnLKibK347ABVzkPfsUsMig GllbnQg HKuoDKt7S6VoJhberJK+PC9 0BGYmXE69nIFeeBAkz6fsoG i7LnCvTLGnOIZ9nBfeGHbie 3JkZXIt H83oqPSuy4Y4KTRpfFnfiGH sAbZdoRW3vR8gODnzumteq5 flfwoyTygfs2qzob58qI07I 29sIHdp ZHRoPSIzMCUiIHZhbGlnbj0 gvM3oBa2+CTKtrEH4pKW3gY 2xUDJqYqM5BDiuV147LvGrl CIvPjxj p8zxg4bbnEm1HyL6PAAndiC tfHinNFJ3z5LiXx00C72iVH dpZHRoPSIyMCUiIHZhbGlnb a8jeN9a Ii8+NYSowNC5tLF6sA2rVdB zCoR5XOxhX219CeVhpXTqXb zaO15qO9ZlsJZ+SOByMnu3G CBzdHls YM1tmOAuQPisFs9oEUN2EjM tLgBuSYqyH8GuRYWuvmuvdj hyrGP4ZJVjWKUchI36Vy6wq DogMTBw xIPDlE6jkuhft1ukxkdlLdS iTXQhHSj0KCc9JWFzxBnfUo HbKAT1NbC1EIK8fRJhtT9gl Glnbjog iX2xB3PiOHCwacivZc93bX6 kNiBoIyA6AAumZsn+TUlMTE VSLCBTSEFXTkVMTEUgRTwvd GQ+PHRk RXK0kItzRMbcDXFddS5mQOY nD7j3MtRuEhY7AVtiI8YjFM KahpjfDa37sL2hWvLcUiJ0M EecH1Zi zwB1OXDucCAuWBtbYCR1M73 sy1U7DSKfZMAzKNO0bCG4pM 1hbGlnbjogbGVmdDsgdmVyd GljYWwt WOhaA657ZGFphKdiLqSzJlV oRqU5OAd8Q5TyQyy2HXZdzC zgTR4szIWwVZqoWb0piTzej LupDZ0s VZNrctfqEMQcqX3gACImlON cwNfkQG8lAGKodulic206Et VzEZB3HFQmuIBmG3ZrlO1uF iAjMDAw LBKvE6BceSLiHFbeU564EDi xPrO1TMEzkgGsP3YeBKFldM otSnB1e4K3Ls8xZFMEFDKmi zwvdGQ+ TQMfGRG8vEzzHIuoZQFneE0 dMCOhQ6z6ZeEuMpM4OPhoK5 AfNJKzuhugWc90dO1pDdOoO pT1AQdk A8XqztC3BNGniJXcXPbkPOI 5W85vi0T2PZNgCPWdVMM3iF Y1jC8yvHqcndezwCMnqOecu mVydGlj QQjhYAhiZ429XOZwyHasFxO FTUFMRTwvdGQ+NXMtOYY7lK ysXBcuXFCrlI2rAQNsK4m2F iAwLjA1 WHjmK6CnCFFnoeqdWw68lU0 iOpViZjM4WGiyV3UjkrD1SP SkaTCmHPqlXVI2O81cw7X9P CMwMDAw HWV9dRU9fF1shWpemwobsHU mdDsgdmVydGljYWwtYWxpZ2 82NGNsvBdcKa8WXY15ZN27V 3RyPjwv dGFibGU+PHRhYmxlIHdpZHR gANlhLWSlNoCrbPidOF9pRr 9yZGVyLWNvbGxhcHNlOiBjb 2xsYXBz SXerZG9znPvkM1SscYE4EFK yq2l1Rq51F19mQ7ZjvLG+PG SojKI8dPK3oX0xOjBqSkB6N GxlB475 DlBwzMQhLkugp0xkh7sheSq 2PnEwOGTaogIftLbdYYT2m7 TeIi46P33vPStrTDLkFEVrW CUiIHZh hUokxp6glO0kLo7+PGNvbCB 8ySS4qL9lFdLaVkY1MTyuX9 80NgKitIErCasoI42zT4Sfq XA+PHRy Qet9MIXlsOmlYN6eaTIgAGw xFn6yULS1WiUgFtKyDGwvR3 UrJLFecxwikvhklAD9ASOsT DUwaW47 Pf8efXhsMf5oGEDtLWK2DYW noWEnF0EbnP0iRwTzJYUbNA HeO9WnxXJjBXumW886MZfoK hD6MURx neYcI9YoEOChhBrvQiK7x3L 9Tr2RtGlgfSEuKK0zUeWaDB j7E7ZhZch8ATZarHjgNG4uu GFkZGlu Bn2thVrusJsfVO9xBJQlnvd gx947OgHpj6hsUUSnlRPbIS coAZI5Y17tf6B7EJUnWNXiO TK2tOI1 aO3vjLerzcuknXQqfWavgdP phOhjRZlmFFueB282WITswB muCkVJOkt1S1KjVgx8XVCty VtiUR3e qUUtIUpiVh8zjNhmrCmmIP8 aJWFzcctbs846DwZfq0yqHU MwqEQnZMrrJYA0M29hg4E3M CMwMDAw NYH1jUM7wI2mmHeavbdejSO mdDsgdmVydGljYWwtYWxpZ2 78OPYzlOpmXz9YYfp2Z8HqV gv4KCZq dDqoZB1dkCCgNVgaEn8bhUx qyCvgTC1nKPXgmuwxx418Rf Aqg9jdRLXzkWWkYEbhKUD5M 08pk0W2 RPMvYPZpPLB9uGU2jE3lbUu nbjogbGVmdDsgdmVydGljYW wsCHvnR543SQTjhSnwRuZjm WVyOjwv dGQ+PH53ji61H6SxXljgXbb 8ULBwJDF9hHT3wW3xBKIxVT pdz8N4dDH7V3HkyoNemm2js 2xsYXBz ZTo (more content not included)... [facility] Coding Summaryon 07-22-2022 Coding Summary HTMLBase 64 TerqhlgmTMu2fZy+PGhlYWQ +JH5OAQZyE41bbPFgmJ2qC1 NMTElOSywgQVBQTElOSyIgb bEnDB7gcQPpJVNr IC8+BL9lCIUoEutwfBMxk7E 7dGT4P93fap0rLFpnqAT9UV BbCeMzywkhg5hhrLk8SYuhL mluOyBt UQXneN73MLN5uM37Hg75iUX fsHEuv0hwxFk8JgVnVOAjPA G3uDdeDJlge1IxECYsF71sb YLez2B6 FSOkcColfFYzEhIcnMI2iF4 hYEtcvqypx2isujrpOws3nq 65wWNud8Z6qGZ5X5UsmlE6Y GJvbGQg UepqxPIIvT2mqdffd9ylpix bTuFkWAGyWZv7JWq2IAZtvD goBeImEH48LLU0JDCfzcYiT 2FsLWFs kNkhAqW8l5T5Uq9WV0PPRfr fD1NXNKXQUJtjiQX+PC90cj 50U2VeSiseRzg3OTXeFJF2i XV9iY9r BTNyFHcjt8F9rOV5W5TjuzF zda4qc3fiGGObRHdnK73xaH Xvh6U7RJEhqLS6NVPreLlxM iBzaG93 Oyc+QDUypRlmt4MwGcjlp6h wm3tubJu5DohpHRJapsRkyG zjPDM5i4MiFw6yFKTwtMZ1v KA0sR6j LmGyTpH6TAtzJ576VdZpkQU bYhyaR03uX4HlyKR+PHRyPj z1XCEwmKieGU6yI9CrZEBbm mctbGVm aFlqTS1aPPKdlbimAKSoyR8 jGAEuW5d1TbUfFbQ2NMqpB0 NfQUMqxpfnKu19vZ8fZrTeK uX4HWxg H4DxcyX2JOHsrNXhKRdmNEM 7O63el3H7HMUfKHKuYTR3iU Y4dL6bfApajixxsMVtmAchl mVydGlj HHliRCraN093TCVwhBxrQaQ vZGluZyBEYXRlOiAgMDYvMT QvMjAyMzwvdGQ+AGUcEOX8w WxlPSAn rIOoWGhjPp8srYvljZmfMP7 mPIZgrneoVUZncE5bAEWgdX FneJviVR0sVWMkyapvd093C iAxMHB0 JKYgxNIrD1JtoJ2fOxZxLSH eOMInD8FfsVAxXMxcP568QO sgWkU5YQStqsWtX1JzQBAaz WduOiB0 z6Y1Od5Ok2MpsglxD1SnsAK aKuMtCwubYZf4P3DtXvmowI I+CA09ERSjHO44ITg5DLA1y WxlPSdi DKUdM3SqjS5oHmOrGCIiISD kOyc+PHRhYmxlIHdpZHRoPS zrODPzXyXpmUazAW2fPv9aM GVyLWNv oQxkyWAdUcMaz3zkDQRcENv uHW2iiVjyB2JuiHI9PHOvi7 j2Gn92I06rI9BelNH+PGNvb ML8nXV0 zX1dWrOgTfC1ULyjO093EeY hbYVuZnjrp6zwo4sisOo9Im L5LUEvreUrhYhsEKC4b4MtD x55C88i IHdpZHRoPSIxNSUiIHZhbGl zyz3xwU4qYp5+JLGetZF3iB N6fJ2yXgTvLuD0LOqsY228C nRvcCIv Qkpta9sdt3naxQj8ZsMcYYU wwyTurSfgBZZ5v2HoLk21T0 FlwNoox1BkMne6rx06eVRzi 6V4vWH4 K4TwFMHfubxqtJPwdLewPC1 uGWKsvugyOECmwT9iAWCsL5 o8SuKwFyO2LDfsD5DdbsR0Y GJvbGQg EXSidJEGnQ5hvhjdb7ilden cHqQkZXPuUEu8BCt8POHdwG pjRkGuCMS3StV5NWC4cCOzl V7ifNnx ucyniR3uSzu+BMJ7eENljXW QDY8cEcsaoXQ+QTJxFZP5uL bfVYqzARYroM1fOXPjO5l9C iAwLjA1 KTjxF6UjfaE6HZWktYVtQYQ hgFEDcK4riedyb7vwzjkzTm GrIECjKFk0INq1LEKehCfrO iBsZWZ0 LpI2HGW1dUBpcC1yrJidzsy esS5oJlh+OnloaCfwUEK4XX q1Y3JqOap4BMKpwVdyWY4ob GFkZGlu Rs2dgPrvkLucZB4wJHIhdcs tu303LgLwa4thPBJixNLeBO qdHHU8X20nk5M3BVBnIZNlT KF4cTW1 bT0wbOlamgxasGWozDsxplD xnMnsLCmqRHgbH086JCYoqS jaHgMcPGt3I0DtVjq9DHRup GpiUE1e iEUgBIgsZf9txIuheYqvCS4 bIONvdqdft561OsNyx8ljIK ZhfEXfHUzhWSD5E60de8L9C CMwMDAw TKQ7eOF3qL3hgBadcsjfrUJ mdDsgdmVydGljYWwtYWxpZ2 28ITXzoSboOlJbrCa4O3TiQ gw8CJCb tNujGR6yiAGpROvyKw1nuHg hsYuaJH9tEKQyljdpc360Sb Xiv1bjDJVomLJwZHjoTAZ9F 68yo6Y7 XQFqGACrFCP1dZC8vP0wpYt nbjogbGVmdDsgdmVydGljYW wbALzfD890JDCrdCxeHvUpm GllbnQg LKgcFKf6D9DsGvgjgFD+PC9 8ELHyBL04pCTqiYCqz3kazD a5BmJmAVLaEIU2eScaRHsgc 3JkZXIt H15alFTbl0U9WAWhzRufyAJ dGaWgfJI1kX0fIBuwrffdc6 uqfikkYrbax1etkk71rV87W 29sIHdp ZHRoPSIzMCUiIHZhbGlnbj0 liG7fEw9+ZXZwrHL4fEY0mB 0sNWTqWkS5EGyrI646KjFhl CIvPjxj u0qkm8wxnJz0EjO4DUWehqG itNcyQZE5g5HgWy98P73mRC dpZHRoPSIyMCUiIHZhbGlnb e3xoJ7g Ii8+YFJjlIR7iIA9xB8sWmQ aMaK1IHyuN825NnHctHPbDi haD99kM9SbsVQ+VZGzKwp2S CBzdHls ED6liJXjYRmoJt1xTGE9LyL vRqOgEMnsJ1PiMUXoxwjest cnmMC5RVExIQMxnT93Ls0nu DogMTBw fNHVcG4hecwfz5tekfidUrO eOOScKFs0DVk0MQBiwBdaMw FsMBD5DtM4WGM2eZCkdQ6li Glnbjog rJ2hO8GfJWYmpigfDv06wH5 jUvFnIwN7FSzdAvy+TUlMTE VSLCBTSEFXTkVMTEUgRTwvd GQ+PHRk STX4mQbzGRspZQByhT4oIKZ cR1i9HeUjIbN3YEmkO2NnHM SpfcvfXk58pF0xHePoEaU3W TayJ3Ao tvE2HNSadYDuVVacVLC5G69 jv3T7RQApYJBuNET7jPQ6cE 1hbGlnbjogbGVmdDsgdmVyd GljYWwt NJngQ129IAAdhIyuXmOvOcX mVuF0GQi4R2HiAjx4OYOwzQ dnHV4mdXWrAIhjDj4qwSvvd BapUX7t ASRqhlyiKOSznP5sZNHmcBE vlJxxWY6qOKAlrbggv204Cg KqZVS7YNMgdDBuR5EstH3fC iAjMDAw NDKwV5SxkDJcKCskB774KQv bBnZ1DCSvzjZxO6PcUQNfxN xqFtU6s4O5Ta7kDIQFTXUgk zwvdGQ+ PKOmIDR9uBhdXQlbOSFojO6 gWGWhO3q9NtQjAeY9HQelW3 UpWDKhixmnPm59nH1nWjRbG aG3QExi Q9LqhoA6LZUkcYGyAAinFFS 0F75qr5I1RFLvAVHaYYL6aP I7lP9ctUcywbccoGGusOvrf mVydGlj ZQnyPXpbO061FUNluMtcUhB FTUFMRTwvdGQ+BMCoKEV6qX swBGqtUUKuoH6vLXQuG7f8J iAwLjA1 MJqxT6NvJOQzgxksOy48dN5 wPfZeReE7CBwuP9BjdlX0JQ RzbOElLRvqEEZ1I92au8J8Q CMwMDAw MPU0dTY1bB5dgIfhokmovCJ mdDsgdmVydGljYWwtYWxpZ2 76RPMijVblBi3CBM57DK33P 3RyPjwv dGFibGU+PHRhYmxlIHdpZHR jQMmaHPCqOfBapSvzWD5hRz 9yZGVyLWNvbGxhcHNlOiBjb 2xsYXBz IUueXR6vnZhbP7YcqGI6ZLE qa5r5Bl08Z91pI6ZvaXN+PG DcyUZ4vJY7tC5kJkAkGfS9D OhtG489 FhStoUNqPfavx1tyq9dykJe 0PiQxDWPgoqOppJbfOBR0z8 TdDj53I74sXRruTCZwWIUkT CUiIHZh mTykss4chY5fLs9+PGNvbCB 9gDG6bC5wPqTlCgX3LLsbH5 22BpPjrRQbBavtA11pZ8Hly XA+PHRy Zzh0VTUknVjiJY7rnEWvQCu cCv9eINZ0LtSfQdNjAIidY2 SmVIVexfjbxotqcQO8FTChL DUwaW47 Uo8psGwoJl3bQLGaEAY0PIV ozBMsN5HmcR1vJsTuWPLeYI LoE2MugLCaWGsxJ111EGjjX pW1GFJw pnGkQ9FcMJEszWysHsV3b8J 3Wx9XeUipsQSsNN1kTnUrQA c1K5PfEdh8LCIejUapSY8st GFkZGlu Wl3pcKmjsYgmGX5tMOJhxdv nd785NfRoh1otGHJyyNRqVW mlNBO3D59ah8C3RHWlHQYyV KY4iXT7 zR6jaTlzkjajoERreTkrrnK edAgxKAswCUlfM569BTBubC rwEuPXMpz6E1PmVpc2NDXzy DdkUK5j gEKcFKuoWv5dqTegrSlgRC3 pIMDubozxb486WqVtq3miLX IxsCKkDWirAUJ7V68pj1F3C CMwMDAw ZHC2uIL8qV4grXjucckskNJ mdDsgdmVydGljYWwtYWxpZ2 97NQZyrFyiAh0SYzd1S6XcX hk9JUTf vSxhJN2xmMTdKLujQy1pzNh jiTzuGQ9wESKukkyqr063Aq Emk1wyMELlzCEmQMvdFWG0N 37mk5M9 RNHqDMVcVJE0rXN5sA8rwLe nbjogbGVmdDsgdmVydGljYW yqIWgvL700ZNIrpYqwFjVhw WVyOjwv dGQ+XK87sz22D4SuLnelVgj 8OSMoDVR8wSQ8nQ9qMSVmSD uuv4D9oEP1N0QdcmGqqk4da 2xsYXBz ZTo (more content not included)... [facility] Consent Formson 07-16-2022 Consent Forms [id number] TGTIFF [facility] 07-15-2022 L --- Specimen: [id number] Received: 07/15/22 Status: SALIMA Kilpatrick Num: [id number] Spec Type: Surgical Subm Dr: Trevon Pruitt MD Tissues: A BREAST CORE NO CALCS (LT BREAST BX) Procedures: HE/3, Gross/Micro L4, CK5 6, ER, p63 Age/ Patient Sex Location Account Attending Physician Ariel Salas 37/F [facility] [id number] Trevon Pruitt MD SPEC NUM: [id number] RECD: 07/15/22 STATUS: SALIMA KILPATRICK NUM: [id number] CRISTINA: 07/15/22 [facility] DR: Trevon Pruitt MD ENTERED: 07/15/[address] [facility] [address]: Bradley Haider SPEC TYPE: Surgical DEPT: MAG GIRON ORDERED: [...] Time: 0 Formalin Fixation Time: 9.42 Specimen: [id number] Received: 07/15/22 Status: SALIMA Kilpatrick Num: [id number] Spec Type: Surgical Subm Dr: Trevon Pruitt MD Tissues: A BREAST CORE NO CALCS (LT BREAST BX) Procedures: HE/3, Gross/Micro L4, CK5 6, ER, p63 Patient: Ariel Salas [id number] (Continued) Specimen: [id number] Received: 07/15/22130 (Continued) Signed (signature on file) Mary Jeffers MD 07/17/22 1057 Specimen: [id number] Received: 07/15/22 Status: SALIMA Kilpatrick Num: [id number] Spec Type: Surgical Subm Dr: Trevon Pruitt MD Tissues: A BREAST CORE NO CALCS (LT BREAST BX) Procedures: HE/3, Gross/Micro L4, CK5 6, ER, p63 Patient: Ariel Salas [id number] (Continued) Specimen: [id number] Received: 07/15/22 (Continued) Microscopic Description Two H E slides reviewed. The microscopic examination confirms the diagnosis. Immunostains for ER p53 and cytokeratin 5/6 are performed with adequate controls immunohistochemical and microscopic patents confirms the above diagnosis. Intradepartmental consultation with a second pathologist (JERRI) who agrees with the diagnosis. CPT Codes 29453, 39579, 16632g0 Specimen: [id number] Received: 07/15/22 Status: SALIMA Kilpatrick Num: [id number] Spec Type: Surgical Subm Dr: Trevon Pruitt MD Tissues: A BREAST CORE NO CALCS (LT BREAST BX) Procedures: HE/3, Gross/Micro L4, CK5 6, ER, p63 Patient: Ariel Salas [id number] (Continued) Signed (signature on file) Mary Jeffers MD 07/17/[address] [place] [address] [place] Mammogram Diagnostic Left .on 07-15-2022 MA [...] for marker placement Recommendation: No recommendation required [facility] Comment on above: Order Comment: Check clip placement Outside Recordson 07-15-2022 Outside Records [id number] OTGTIFF [facility] US Breast Biopsy Loc [facility] [address] Les[address] 07-15-2022 US Breast Biopsy Loc [facility] 1st Les Left breast ultrasound was performed during Dr. Pruitt's left breast biopsy. Please see Dr. Pruitt's surgical notes for completeness. Final Signed (Electronic Signature): Fam Worthy MD 07/17/22 10:30 a Technologist: [facility] Comment on above: Order Comment: Breas t mass at 6 o'clock position left breast Coding Summaryon 07-10-2022 Coding Summary HTMLBase 64 GvnmnqkwHVq0tEd+PGhlYWQ +XK3DZAQiT44fdHIskH0vP3 NMTElOSywgQVBQTElOSyIgb rIyNP6vhATzQCMz IC8+BN0mAKCxUxscnQNhd3Q 4iWE0Z12fdm0qTKbhhDE6IC HdKsVgyhjuw7kptVk9ONcxE mluOyBt GPFcxE85RQH2mP02Sd28qUN dzAPbg2ulnCc3ZqQcULCdQE F2uRhwTNsjz7WtCOSxT16lh CNpj0E4 KVGiiZctlEDfRuXemGG1jZ9 mYQprtdmzk6qsvdipIzb6rp 73bOYko4N1gHU9F5YtttA5U GJvbGQg XahncMCUgL3rmidlk1acghi vYlUpPMZwHUc3ZMw1HLEfxD ccZxBeWM09XWQ6RCSeowHvB 2FsLWFs eBcpEeE9l6I7Py4VB3TOJdg sX4WIDTIDARtrbAH+PC90cj 62U9PaBtwvGwg5OMFnGRB1o LL2mH2a WCEqKTvlg5J6hUZ0U7YfkbL ssm9es5ceMOZjKEvsS61ydN Znc7Z7UFWahAA1DOVjlXbbD iBzaG93 Oyc+TWUhhRhph0NeAjxjd1n dv4wulIz1PxiqHHPtghGsgS uxYKS7t0LuEv8mDFSduIS3h IG1xZ7g ZeScYhN6KSawL062GnUhoWD gWrtiE60jC4UbvTC+PHRyPj q6KNKbtRioIB7hI6QqLHAlo mctbGVm kAeeVA5iOEGtpevnKAGlvT2 wSEQxY0g5VvFiLrL2ZXzgR4 ExJZDgumhoSz40tE0lSuOcI xQ8RUnz Y9ZuhsI3PMVbyHYhXJxgKGO 6B63pc0J6SMBiVELhBSL0rM Q1bE9qoTlrdfpqdURoyCvac mVydGlj XNjqBPppF438CMMdvJqkErJ vZGluZyBEYXRlOiAgMDYvMD IvMjAyMzwvdGQ+ZHLfRNW2e WxlPSAn eOOlRQcgPy0wwWbfnBdrWW7 wUZLlmqmhUAFcvD1uQZXkgU MfrMdyVB2rAHLrbrmtp921G iAxMHB0 IEJilTXaW0SteO5zMeNhVZF zCQBtQ2IulUSxIMjsU832RH fpSfH7IBHysjIiP3WpNCJhe WduOiB0 s9Q4Ud3Jz2PxjdrkE8OdvHQ lJnHcVajhGDy5F1UyAbpuoY I+VL06BUBjJE60XUm3GRJ3h WxlPSdi ZXKtP5SseG0yYzYtHPXeQYA kOyc+PHRhYmxlIHdpZHRoPS wxOMVtGuDqnRrzMB5zLf2oU GVyLWNv hRbtfXUrTyKwh7czZRPlPXs uJG4guDquV8VbyCP2QEDxi2 i1Cq43O14hW6DrvBG+PGNvb XB1hGT1 gA2hNtMyCtL8GDaoT662XnL knSYxTflin0njy6ewrNu9Rc H9WNTjudCdaXttTDT4f2FcN s23K49i IHdpZHRoPSIxNSUiIHZhbGl gmu6meR6oXl0+RGXkgMK4uY I6eE1xNwZcYkY5CIfjG077H nRvcCIv Cgwcb7hkp8iruJl3NyXqFNY dcsMufHjkOUB1c8OcMy10G7 DmbTwym2ArIks6ec61eYPcs 3A2mAE8 H0MlBEYnfmsfsPAnaVxjUQ5 jASDoagesJPJuzI1rVUDxY2 u3AnMiObG1BCpcP4JibqD2K GJvbGQg RSXahBCQkB4moxsbl7qymss tWzPjKBHtJWy8EMv1IAFwwA myYmDlJWW4OmL2WVY6oBZmr E1qfPhh tykzmT9vUah+TMM1nZBscUC TVI4bFcikkLV+CONsSDW1rW ntSEmhDHGlzH0vORGzT1u7A iAwLjA1 LYceA5MvppY4AWZeyRJcHRI suVSCnK1blnupx0dhlhklFx UzXTKjGMl7AGo9VFLuzNawE iBsZWZ0 ThU4SLB3yUPdaD0tdOpahna vfO2kWcl+JgplsIqjKRK4IU n0T9StUuz4ZXBssZejYQ6bi GFkZGlu Mm1cyQtjaIzaWB6gUWEdyps sn282DzOop2pyTBMqpHYkYR dtBYU7W64hz8A4TDRbHVLbC EK0uAQ0 nU8gxXnnigcoaYQwzPomnrR pbTkdCDerQEruD527QCPchD ebQqMjEAz5W1SzUzo6PDVrl DktYU0e iGLdPNkfUd4sbCccnBkoMM3 aIBNrrxujg304BzLja0gfKP ZzkUKeKQesHQA1T61yz2B1K CMwMDAw WIN0sXI2dR4ktUjougluzVL mdDsgdmVydGljYWwtYWxpZ2 70FARpxUnkZlDfbNh2R3ScS nu4USPu fGezNP0uwBBxIOtuEy8fjDm gmVfnCR7vCARdoqtdc446Lc Nwz8ltXMBwpCTnUVbeWYT2N 73bu7E8 UOYuMSLxNVE4lHM7oL4brUp nbjogbGVmdDsgdmVydGljYW jjBDlxE305CPZtxFecIsAwb GllbnQg OGtoEDk3L0UqRrhlqMI+PC9 5NHVpYX98lBIibHBtu9egeA d9ImBoSIMsFPD7mWteBPayj 3JkZXIt C02auLXnu3T5PCQuoXqgoHN tWxAjsCA0dJ3hJWkrfxgpw0 qpjlyrHrqnp2ifmi93zH24I 29sIHdp ZHRoPSIzMCUiIHZhbGlnbj0 nbQ2aRc5+ICBztOJ4tER8yK 4pESTvWuX5GWpgA292RdGjl CIvPjxj b3oyo7ufhHq0NhB8HSBllcZ ttPucMIM4j9MzTn17Y77kSI dpZHRoPSIyMCUiIHZhbGlnb f1cbT8g Ii8+TOPunYL3tTW1vI8nOjH uFgC8FWdaY058QkZeoHCdMc irH30pR9TwsQC+CBRlSit0P CBzdHls BD3xdXKmOMrsWl6bIFI7BtB nSqRzIVlzT7XsDZCehcfcbw dawCT2MUXvJWOrsI12Ms6sx DogMTBw uPZBrM7zbcypb9mzloicKvT lGXRjOTq5EWj8URSnxGglSz IrBZD1CtU9UIQ4lYKftQ5ku Glnbjog gZ2fY2ZvVPQlkardZg59zU8 dHxHhBrF3ZEyrZsy+TUlMTE VSLCBTSEFXTkVMTEUgRTwvd GQ+PHRk XTH5cAtkEKbhLIEvcY0nZQA xE1u0EjDvJdX7QWqhP8SlBV EistquCx33xT5cVbMsSaY3A FusZ1Mb fzF9IJWssDEqRYgaVGU5G68 sh3S2DIZrOLBkTPH7uRN6mO 1hbGlnbjogbGVmdDsgdmVyd GljYWwt SWzcK664ZJIzjVhpOfOjImF uOyG8VVu3P2KqFtg6DCUgiA cmCR6qbKYaQKpnAp9msIwdc ZjtPP0x YHKoplrhXRIyjR9vMJWimNV hbLzgVB5iKCMrqzxyq566Qa QjFFX5MGHxqBDiA2JuoI9fL iAjMDAw OFObA7YjmRYgIMpaE425CYl rNuW4EGBtjzJkS1CpGTIxqC zlKaD7t4W0Sn3qPQCMNFQhr zwvdGQ+ CKZbJEN4eIuiXDttBRKrkE3 bDWRmZ9a9JvEmWoD8IKcnI7 NzUONivjdlSu11hC4iNrGuH sY9JJxv H9NvjnY1ONIwqFOvUFpiEMN 9E13zi9H4NZVfLDYbFSZ5tR R5oX9ktUsoladzhXKxcDvvp mVydGlj JKiqIVgrF054PHPrgGbqQkV FTUFMRTwvdGQ+GNHlZXN4vN upTWkbEVOhaA8iLHNoS3c8O iAwLjA1 VAzdR8KtROPlqeaqVo36oY6 pAsPgYrX5JFomR3QaowT3JO BbrGFnIRllZTQ2S44mn8K4C CMwMDAw ZVR7uNZ4kU4ywNuywwmznAK mdDsgdmVydGljYWwtYWxpZ2 96PSIbfZffAa9RHR85KR79Y 3RyPjwv dGFibGU+PHRhYmxlIHdpZHR vWOuwETRgNrTvyXcvFC4tFe 9yZGVyLWNvbGxhcHNlOiBjb 2xsYXBz GTucGK7glAhfP2DziFM6PJN xa5l5Zb80J59zM0RzcTA+PG YzuCN8qJU9eU5vGhSzZxI4D AotJ767 UiMviYLhAivar9jae3wglCp 3HcMiTJQyrzSfgIfbKZG4b5 SpWj48P25hLSakDVZyPWDjQ CUiIHZh hOsqrd3zpA3qTn7+PGNvbCB 8jYF4wC8iZdGtXbC9MAwdG1 43OjUvmXGjCvwsD70jX9Ain XA+PHRy Rwf8BPKslOljYO9geELwGRi iVr6cUCM3IhFhAyJmZEyyJ2 WbUMVfzjkqtltkhUY3ZWIfC DUwaW47 Vb0ciIlvNc2rZTTbEOA5CEL xlSMhM9NjjK5yAmCnNYItHA FgQ0NxyAQfFWliQ128RKroI tO1WFOb fqQeR0CcIYZpwXjrJxT2u0U 3Tq6QkHfyyMIwYE2iEmTsUK a7U3DuUdw0DEPbwOdlNS6ya GFkZGlu Bh6hxNyqdMnnSL9mTXZzxzx us277AkWam9clRLNpcLZtBG kpJYA4U19ps3P9KUWkTCNnT AB0rNS3 rV3pmLdppaeuaECpdOhprmR bjLfhBCumGJjtL429KEMqzV ldVqARBhg5G8VxHbl0TKIvn BloWG8u pUUdPOsoTw5phArumYsbEB1 hYSQjxayhc138AjPfi7oaPV CuiVGcYDuhOFI2D24ze0J4E CMwMDAw HFB4eXI1fB7mbZtzhidpwCX mdDsgdmVydGljYWwtYWxpZ2 36LZSzzYdqJm3DXfq4S2ByX pn9MDPq mEuhEN4tuPRoVUvwCb0kkLk nnAhjXJ9fMRUefqpxp477Yb Mvz7dlNWLahSKeAKnvWBC0H 04cp0J3 XBUbTXCyTDA7qII5jH5hmMh nbjogbGVmdDsgdmVydGljYW ynBBfsJ294KVTwxIbeRdHjg WVyOjwv dGQ+YB77pb49P8JaPhybIzh 0IZSqGER2sQF0rN0wRLBeIO guk3Z2kZH2Z6NodfRkla0cg 2xsYXBz ZTo (more content not included)... [facility] Coding Summaryon 07-02-2022 Coding Summary HTMLBase 64 QtbbgbmpTKj6vQd+PGhlYWQ +CP7EYEPlJ85zkLDycN2fG4 NMTElOSywgQVBQTElOSyIgb oLfHV9xySHjEDPo IC8+QH5wSZAxFtuzzARxs9N 4sQZ7W20yyk4zJVtdiFF7RS BkGeEzofbrn8chgNw2YDhgH mluOyBt CJMilW27UYN2pR27Np42iRF ysSCgf6dciSc2LjKjLQIuPA S0aDipFMjqd3YfKRYoS06ot HJrd8H6 LSWioItjyMRgEvNdtWX2nN0 yUJexlnadw0balpuyEyp7hb 74eYAhe4R9mBG5J9WqtbE8G GJvbGQg KyicoBDUsX3bqazrk1bgewu iOcRqANVbUHa6ATb7ASEhfJ itSsMwZZ73UDB7YIKfbyFtX 2FsLWFs pFmaFdT7u4A7Iv3XC7CHKue jD3XTJCOBTDwlfDV+PC90cj 48U4PfUczvGca3FOMhDIM8q KC5vH6z CJZsVWzcb2T0uSX6T8RhrgM pmr2nl7faFZZxEFqmR57fhJ Rer6X6DJThkUS3ITEpaQkzI iBzaG93 Oyc+OSZibYkbx5VjLmooe3l fw6ivqOm7NodqIGMgthBkvG jxGSS6d1PuHv2hEUJmkBU2g RW4dQ2q BhCpQdP4PLvcK422ZrBexTZ cYvpxA46bY8MmqET+PHRyPj i0PKIvzPcqVS5jX7QdCBUcd mctbGVm zBkcXQ6vFQXbsirpKDNddR8 gSJBwC8f3BmPpJqF5AZybI9 YpNEOzwkiiYm93oV7mEiQqZ tY5FFxk Y7MncqF3EJUizSQsWKanMRZ 4D07tn2A8HIHyMQPsYGM1cT J4vW8siSsfhflsxOPdoCwdw mVydGlj OOyzZCmeH180HHSkgVmiIjY vZGluZyBEYXRlOiAgMDUvMj UvMjAyMzwvdGQ+BXBxHFN4q WxlPSAn dSUmWSgqZy5trIsqyVlvCR0 jZMGcolfmJFOdtM5xIPPxuB JxaKceIG4kCIUaacddx499E iAxMHB0 XNJkoBOjB0AnqK5dUmJpUON cQSQpM1SqdSMuIQopY461PP neLbB0KAVqddDzG5WcAKEqx WduOiB0 c6U5Er6Hy8LnzyxkM8BxkXV rBcPzKzbzCWw0D4HjFdvvtL I+YW57LQOsEV87TFk7EYL9k WxlPSdi FYRqN7QdnK9fNjAeSEUyHBW kOyc+PHRhYmxlIHdpZHRoPS weFKPxAcHrhEqoNX6zZh5kX GVyLWNv jOghsMAgNdNdq1caDHDxILc lAU0fsDbbE1VrgLA4AYTbw1 z8Ud81K70kZ2AcoZS+PGNvb TM3dAX6 bN5fJbPyMeY5SZxzG121CgQ alNKiGutcq6vyx4qogXs3Jg E1YEHlueLfmStyDNA6d2SmO m33A38l IHdpZHRoPSIxNSUiIHZhbGl zds3qwG2gNd2+ZJUdmVP7sE D7zE3cHmJnQjG4DFuiO704J nRvcCIv Pwwau5juh8tqlRh4DjMjHPU jjeCvlMbcYDM6p0FfNj92G1 QpvNxnu6BnUui1hd63nPPzo 4C0oMF2 Z8PlOLVviuhcaMWcnUojTG7 nTGNacvsyBSLicA7nWAMbN4 c5RoBtMrE7EHtwX4KctmS4E GJvbGQg XTAfoAONoJ6oudpbx9xfavd wSnMaPKSlRDt1MNg3FFFpoF trBsQlRSF6OpH7ZPY4eAKgp K5vjAlt hgbtbZ7hOct+DJG6lJZenSF AVY2vKifwwNI+AURbJMJ3iT ltNIqsSOIpvF6yFVRaH3w9F iAwLjA1 UOuxC8XekuO3RKQdlIRtBXD upCMRkN8xmedzh5cmumtiYe TtPCIiRJw3OKo9VLSsnKtlP iBsZWZ0 GgF8MRP6zLMvdR8ynTxocxa enD2gGvg+VdkncVgqJMX6FO v3L2IkDqx7ZWIozXcyNO0xh GFkZGlu Yt3egTeynNxaRZ4xGSDujhl bz775CtKby3inTMUxqUAuTI nzAVT4T47fl8E1NRGcWCGxS NO3qEH1 pF0bzLfwygwwgOQnbStoifK vxFocLSxaLWjfJ061FNPkcA cdWbBjNBh2V6TzDjn8CXWut FfrSU9r kDCkIIvzPs0xdKjmzFizSF2 hPHBanycxu983VnLpg3qmIZ ZxhMQyRCyzNVP8M92im3S2H CMwMDAw LHX3vBF8fN8hkKfjfvtntFU mdDsgdmVydGljYWwtYWxpZ2 41PAEghWucQmIfzSk6B7TfP gb8IYXn dJbqUN0lwTWwYNegHy6znSp ehOyrCF2lAORgtrpel424Wo Jfc2rmPQRkjYJfFWzrTOF9N 73ox1U1 JXQjJRBtCSR3dYR1lO6ryWo nbjogbGVmdDsgdmVydGljYW anOGewW883GUHctQgrKsFwl GllbnQg OSiaXRf2A2DtWqkgaTQ+PC9 2FNAgXJ56eRLjyUMmi2opnX n7WaKtTCSySPA3kJvqLBoed 3JkZXIt Y32ywIUga8N6PCHpaFbbmME kLaCdnAU8gJ4eFMoxdccjk2 qtibubWflyl1slum79vB02I 29sIHdp ZHRoPSIzMCUiIHZhbGlnbj0 ioA9tHi2+OMXsrME5xPJ4jQ 8sMITmSeN9VQylG268EmRcs CIvPjxj x3gcj5jcfIt0IaE0UPCzbnF uuKnvZMT5j7YuIh94Z89uRI dpZHRoPSIyMCUiIHZhbGlnb f4wvW1p Ii8+OMArkKJ8jYG1lB5xWeB tGtX7KPdbN823GaRryKTsNs uuF28dB0UwyKO+ILMeMgj1J CBzdHls EQ1wrWNbZEvyZj0cXEF7MzT lEuHdNBkrQ8OdXCRdtvmmvn nckTV1UZWlAZVzmO08Uc0dg DogMTBw cWKNsW2pyrbqi2esfbkfUeX xKZKdJUy6LRj5WXKpsVjxDs PcTWJ6CxH9SLX2oZEghJ2fy Glnbjog jU1yA7EvQRZwhosvSk59mO7 rNhQqFyU4MJizTsw+TUlMTE VSLCBTSEFXTkVMTEUgRTwvd GQ+PHRk RUE9pOieXErcGCOnvQ3fGYP aF3b9FgDqGlI4ZLxiJ6JoGU LzxcosVy71mI7iOwZlWeY0U JdeZ8Be unJ7LSUfrDUwNEbgNDC2W32 cz8A1ZIZqNMPkKID8tZQ2mF 1hbGlnbjogbGVmdDsgdmVyd GljYWwt YStrY077OZEqnYxjCfTbFqI rLcB5XWx1Y6BaDsc9ZTBmiF vuZZ3bzVVsIDuxWn7vhAhzg WwuYD1h RYBxcyggHQQblF7aIATgfRE jkBcfCT1uEFIzhlvvy751Rw OdKQV8GNSwlSYuE7EzfN5uB iAjMDAw CCUeP8UhyWQtCDmgX106XCs sSwG9UMIjibHbW3KqXVVajX itFmJ8h4E9Xj7zWKNQAUUer zwvdGQ+ OBRgPGA2qHjzJRaaFVLgcY5 dGOZtK2t2PdMjLgJ3RJjmP8 XjCMCyncqzVb48cB2lTcAjY uE2DIlx C2JjstR5WLCxcCGxBSkgLQL 1C90kq3W8JNQmZMUmZEC2pB A6sN9zpSoymobqeNAhcUhyz mVydGlj RIicALriH086YHGguDpkOaA FTUFMRTwvdGQ+AOJxXPN8rF xuUXbeYQTbsG2oKDIlJ3h7W iAwLjA1 WCzoZ0QrPEPobzrzFb58gZ9 iRsIdPcX6WQdpW1UviwY9NJ MqfVQjOPknNEF1B95bu0U6Q CMwMDAw CZM0pDW6dW4bmBdxqkczfSR mdDsgdmVydGljYWwtYWxpZ2 14UNAqxSelEm8ONE96MW42P 3RyPjwv dGFibGU+PHRhYmxlIHdpZHR nHEooYDWgYeRuvTiaOG7sLt 9yZGVyLWNvbGxhcHNlOiBjb 2xsYXBz RNpuGC1qzUrkX7QirIB7LAD db3c1Ig50V32sP1KrgIC+PG QqcTX9cCN7jH0zUbNfPmH6F KvcI611 OqKcoLXkJyzmf4zvc8sqcSz 9OkVzNAPpwzFqxGuxPLW5m9 JmXq29B44fCYkpAGSuAQPgU CUiIHZh qIsyfc4tmG1wXh6+PGNvbCB 0pWK4rZ7eNsPrTpP7JBiqG6 01JdSxoEPcPeftR40rR8Sys XA+PHRy Mwt3RSHuuBuiLP5xzCPxQRo qAj4bHZI5EkAdYyBxQEejO7 CuSIRpyptaaajkkWR2HDImM DUwaW47 Yp0bcWecFv1uISTxWOC0QJJ bkRIfY7ZguK5uCpVsSDEqAZ HqS8PenCVjPYoaO125LFjuO wF5CQYz phDbW6XdAKYiqSpmTsB8e9O 3Ff6DpFigvWOrHH2dHiArJW f0U1MrFer2SMPnxGqsXK0lc GFkZGlu Rz8ufJaqbHwkFO3aSFAhqdv iv840BlMij6ncQIKggCWoYB fdJQZ6U25qk1Z1AHPfTFRnA IV6wES1 rY4ppAurnubloRPahQxufdF edEgmQEbgLHaxP374PHOykC vqOkVMOkw7O8BwFqi5EKRam QkqCG5a nBWzQRdqSe3dhByfjVhfTO5 oZTCagfgfb818KsBni8qrTS DcwALcXOlcMOF5L41eu6D2U CMwMDAw SWY9xJB2xR0liBlgjwfolXI mdDsgdmVydGljYWwtYWxpZ2 61JROriFfhZw1IVmz0I5VjX oy9YSYs sNjhRJ6rhPTpFCdtMn9pxQx elAgxCR7gEXHizcwmc923Oh Hdc6rxKUPiwDHdEItrWCD1I 78ad2L7 SBHpABDnVQC8zCV9pK0fnNc nbjogbGVmdDsgdmVydGljYW lzDYzgE166FTAdgJjeIgTqx WVyOjwv dGQ+VP28ux81E2UaFtamEdl 0UOLgSZS9iBQ2nR8qGSMmWC ort8Z3vPX6G8TubuVgrj2xa 2xsYXBz ZTo (more content not included)... [facility] Coding Summaryon 06-30-2022 Coding Summary HTMLBase 64 IpdvfibuENs9qIu+PGhlYWQ +NU7AZSZuY15mtJOvzE2zH2 NMTElOSywgQVBQTElOSyIgb tRjOE2zoXIyGENr IC8+KD7gMDIaIrvyfRLpo4G 3aLG4Y48tkq1bXIxafOB2UC YzIaVfipfwz9vqdZg8GVorX mluOyBt EIYpcX94VKD8hY70Vb54qXG ptLZly9mseHb2WrCtECUrAB Z8bGrjGOnjj3TsAUTrN43cm UCrv5V0 WLIajVmswQXcFgKjeGW8wR2 bDLaagsugg6cnlrtoFwh0oe 78pXCyu1Q1eFE8A4LkzlS6Z GJvbGQg TxaqgRUOcQ1wnvzlf2doyse lQwHkYVNaWJp4SEq8YDXpmO myGtLdUJ66FGK3WVWwglPzP 2FsLWFs jHesTpC4p6F7Ay9KN3DDYre aC8YOHYJYQBzoeDX+PC90cj 82J8EwDwisFhr8SVCpZAD8m IW6pS1y MLMcRTlkn4E2gPW3B8IdgfL scc4ae7njOBWnYSdlQ76bwN Olv7G7QNAdsTL8JVHbyZosB iBzaG93 Oyc+UFGmfRsru9CiQeyux9m nf5cglJz8McxfHMTwjgJmkG qdRCW1i8BvCf8mITKzpUF1m CK1qP1h FuJwLwH1LHchE289ZrSpwRL yEgcaC21xP1XgyZV+PHRyPj e1OJHerQcjMF5qC3FfCUBsm mctbGVm cKisDT2jLJPrpmtaHPEleD9 lSIPiZ9b4UqRhMrR0BDxiD1 KiSTHgqsxrDm49lH8aGvEwN cE4LGbr T8EzhbI4AFZkfKMxLZowIQQ 4E93rk8L7ZPFaEHWlWCS1rZ I0tQ6krRnvfodwbVQyzVnbt mVydGlj SIfkYUjsF252UXGocZxzZzB vZGluZyBEYXRlOiAgMDUvMj MvMjAyMzwvdGQ+CEWwGVR8j WxlPSAn vTBxNOreRe6yfQjcoMksBM3 wMTRqjgioGIQprJ3pNJIzmD FaeFciCE7yFWOhmvgak919L iAxMHB0 AEYxnQGvV1IraQ0cKaLvGXP gHVGvD0ZiyUJhOApuO757RD aqGyZ2DMJiztQhP3QjILOpv WduOiB0 r4J8Ik2Jj6LntbjdD0XseVF pPxVrEizuPYl8C6SdKrtxmZ I+CY55AQTaLI92UUt9COF5s WxlPSdi KFKqS1OxrY1nEyYxVXRaIGS kOyc+PHRhYmxlIHdpZHRoPS rqQSLfWlRtlVonOG9uWt9vB GVyLWNv fHsegJCvJaCuk4tjHELbHVv aQU2jyKqrN0ZepHD9ZYAli4 f5Ib25V85vM8CoxIA+PGNvb CX7rLP8 zO5dMuGzTxP9DPejH957IoP adCRxRwnrp8jnx3mkdHh4Qv U5FDGiqmRylJbbHCE1e0PmY z77V06j IHdpZHRoPSIxNSUiIHZhbGl rvc6iyC9aKe4+LBLrfOH9xG J2yB0nBeHxYkK6GVohU452H nRvcCIv Ygzvk3aqu8rdnCg8SzXvMJT jebBbqZnrDSS6x0EsKn28Y2 RgmYmtu8CoFxo1nf13mSCgy 8J4tBH4 F3BfLZUgnjhoqMNhiNptUB6 eJQZzoujaFBKrqD6lLSDfS1 z9EvMaHlU7FZyuT5BefjN8L GJvbGQg SYGhvEVBvS5ogyepk6yskfe lLcNxGAJoTSq7QVz2CJEixC qePnTxIQN0ErA7IHH7oCFqg W6sjWib rmueiL3zIyp+RLS5bCVomHW FKY8nMnlruKO+XQSmVRV0iZ rtXQttCLZooD4lZFYmI0o2P iAwLjA1 XHitU7UqtcN8RUJzfOMyJAN cjEPEmJ6llmynq5jjyguoTa FbEKWvOUo3JGc2VONwnKujD iBsZWZ0 ZeK9XHC9gHWauA6zkZtkukp fiS4tOvc+ZkflxCeeJMY8OJ v6R4KySvx8EZReiIrvQQ4rb GFkZGlu Vz7gnOibtHrlPJ7eZJFwtgn aq785HdTto4hoIWSgaTAuBZ cnNNY8L07uf1J8JOTeFMXgP UC9lZC2 qX7udCtrvmbqnOSyvHfvbrO qaPveXHztEDliN993XKJyxT mqUcKiCIs5U5BmWjl3JUUsr IoeRD9h lVBpGSzoDs2nzGjdpThgQU6 fXRSskfilq666JpSzq7qrQF LpoHGmHItmGXF4E52zs6S2D CMwMDAw XIJ0aMX6iX1ovXxnjxdykIQ mdDsgdmVydGljYWwtYWxpZ2 05EOTzjCppMoQwnTa5Y3AdM me8VUEz qPgoMH4qvFUqQBugXl8skTn ncAndLT3qWUJcteart353Rb Ktd9wyHDFwtNSjYOxqKEO5R 57pj7H6 VODiPMMbQJC2qHB2pS8zeAg nbjogbGVmdDsgdmVydGljYW hkMAaqS233DSXtvEvdZhQrf GllbnQg YVyfOUo6S3GrVtpzvTY+PC9 3PJVtEK02wCFpxXRil7imeC b6NrJoJLIcXXT1oOzoAWiyt 3JkZXIt V78urSCfl1R0ZXSduAsedWR vFcLroMH0gA5uMCxwbwcrm9 nipmfwTlfjz6rycd06uW39C 29sIHdp ZHRoPSIzMCUiIHZhbGlnbj0 evS9vNf2+RNNsqMJ0pFH6bN 9fVWOoCeG0GMquL635DhDke CIvPjxj q6evj3ujwGy9PjL3GASofyC pqUpmMLW6d7KeXf34V94vZC dpZHRoPSIyMCUiIHZhbGlnb g7huL8h Ii8+MQWljCZ8oVD9mM4bSvX uQzL7HWcgF957PjJovNXuDe keS68oU3KoyDA+SRSeFnw2H CBzdHls BA0kzXKsXKyeYu0dSGE7UeT rTaHmTDzmA7GzEGEmdmbsow mzxXS3WJUeSSWgaE99Ug6uu DogMTBw cPONbS7fzejrt9niyiumNxG qKBBiHTo9PKa7MOLieAecVg UlVEV3IpQ6AWQ2tFWaxB2rx Glnbjog sS8lE3FuEKHoetdnXa28hM8 iFzCfXqP0CVgtJdi+TUlMTE VSLCBTSEFXTkVMTEUgRTwvd GQ+PHRk JSZ0kPvlCVejAACcmL6cGWD hY1x8BsMcAeA9AFlaT9KpLA IinnmmOo02mJ3aXxXkEiD1B TbdT8Vt tbA9YATdlLUaZOywHHA9U82 cs6G1QQQgAVOvRQA8xSU0uP 1hbGlnbjogbGVmdDsgdmVyd GljYWwt ERwrG853HMOmhKttHrZvEwJ yMpO1PVs7S6YtOjk4JQVgvQ auDX0ghABqSJogZe5ohUraf MeiUC8f FZIwcbryFLGnaV2uLJIivEP bqGfbRP4cPIKcwjxab910Dl UlDET6BSEvzYUyM3ArnT0uZ iAjMDAw JUNfB1DqwGCeLUdcZ197HJc dOwP2YYPrtgDrQ5AlSWYxbK aeQoJ8m7Q5Te0eGQGMWTMqn zwvdGQ+ JGYhUGL6zAoiXHktVHKlvY7 aQIEaC9r8RbCeKhK3KQorH1 OxOMEewllbLb92jJ3wMpFbC wQ3AWsv E7UlleV4STYwpJFmDVfzYEC 3H50lh7J8WOXbUBOgXFO6gM V9bR9mhOqlmqopuSXzwSqvj mVydGlj ILrfTUhgO051BIXarXziBkC FTUFMRTwvdGQ+XIVeBZJ5mH jdJFcwSCUwrR9gMSApL7g4T iAwLjA1 DGieS7McKNFnfofzRb13sY8 fGyOzTtA9EWtgT1SmbbK8GR PtrKWmDCrnVGM8X47sy6Z1I CMwMDAw WAK9cQB5dY9guUqgzshrhDJ mdDsgdmVydGljYWwtYWxpZ2 29TUJtvEcyRm2ZQT23SF78N 3RyPjwv dGFibGU+PHRhYmxlIHdpZHR sSCcyPXKmUwIyvSriHY1mWq 9yZGVyLWNvbGxhcHNlOiBjb 2xsYXBz WWjxHV6zqCbzO3LexTG2JRE au0o7Rq17S98zQ3SseIU+PG AmtFU1aGD1tT5yQpWvDsG8Q UpvA479 TtPluYAlYouwv7trl4dcbEl 8DuGcSEJhmsQbjHygBVQ8b9 AsLe20L21vFDdjQNPoWOPnW CUiIHZh eRsulp1jjL6aRw9+PGNvbCB 0mUY3jG4tNxSeUaL5IWpyT5 30JaMpvRVfIkkxX77kG0Gps XA+PHRy Jre6FOJscTuqHH0olSYjXWw uFf6iJFO0OyGwNdEaCEkeH7 NpUAJibhdyszlkuMT1LMByO DUwaW47 Oe7wuDobHw7qSGXkDNB3KBB yoJMsR2LlcV4gQnZkHZNwZW HgV2GvxDHrIKctB824QSjbI lH3LTKw qaHzH7GbGXGvlFqiAgZ0h4Z 3Wg8ExKjvrYHrSD5fBjGwSB a8K3CcFeq3IQLyeGvxNV6gg GFkZGlu Gt4dpNdsmMfoQQ1rBTLhedj uh116CiMzi9liIKBadSKmOE fnADF7X92jp0X4URThPDYgS UV8iUQ4 nW5pxTdzbhupnJRpsBmlpmV bwFsaQQgeCDyjD922PPJfdH rmGgEPSyf1W8NuNrt0YIErg LprCZ4q jUVdBMukHe9lpWtvnSfsLM6 uTHSzdxyry110BiUmu5fkNX ZxxZJgUKhiQON0H47az7A3T CMwMDAw CPX9vKL4oC5yvRooxmjceRM mdDsgdmVydGljYWwtYWxpZ2 13VOLseQxyIm3WCxj2F8DbX ly4JLQm yItwIZ6axDHsMOsnQf1crDj ahEqnSL2jKCVvjkyjg954Hz Ppt0qhBLSluINrBYxwQHJ3J 86iw0Q6 YGSwPRJfSSJ8oFY5mY9spTw nbjogbGVmdDsgdmVydGljYW raNGoiD934JDVusRkxImPeu WVyOjwv dGQ+FS11hc95X9DfAkbcMxq 1GYBaOUJ3wMI4kJ7vFYFfIL guv2N5lKH0Q0RqnuVebh2jq 2xsYXBz ZTo (more content not included)... Normal [facility] Rad - Other Radiology Report on 06-30-2022 Rad - Other Radiology Report [id number]#1.00OT GTIFF [facility] Consent Formson 06-26-2022 Consent Forms [id number]#1.00OT GTIFF [facility] Mammo Diagnostic 3D Left. on 06-25-2022 [facility] Mammo Diagnostic 3D Left. MAMMOGRAM DIAGNOSTIC 3-D [...] is recommended for further evaluation. R2 image Supervisor Tree Trimming was utilized for this study. There is what appears to be a loop recorder on the left as previously noted. R2 image Supervisor Tree Trimming was utilized for this study. IMPRESSION: There [...] considered Recommendation: Biopsy should be considered Normal [facility] US Breast Left Limited.on US Breast Left [...] MD 06/26/22 12:57 p Technologist: PM,ER Normal [facility] Comment on above: Order Comment: Reque st for coned down compression view and true lateral view of the left breast Coding Summaryon 06-08-2022 Coding Summary HTMLBase 64 EhiutdbvNMe0uKg+PGhlYWQ +AC6VQHXxM19wcMEdbH9UW3 hJDM4PFZPLBZSLQL6VNM0oj PL1JRcfC5NdkcZv OndraBOtOL53KNq0JDY6mSk eORddtX2kxHIfP0x3RmPyXQ 26sH06ERuzGCCxCmN0TxPty jsgbWFy P4apXrHthURzHgg+PHRhYmx lIHdpZHRoPScxMDAlJyBzdH tgQT7zIn1uUWFiFPAmdAodz HNlOiBj l5nvLBNmUKgdXE0hfLmyC0M vbGG4XXMlu7s2Vq62nVD+PH PgNXQ6pVbtLCcyq418BtWav 8tuMEN7 iZIoERhtXVA1Z33fr9C2IMS dVHLtMOJ6pUN9hO9abZffjb rcR1NndBJxPwD6GQQ6lBKpy F7unPnd fektsW6aEeb+T03MXX5RSBR PTT0ROjv6Z9FeWsuzbLR+PC 88WCCsMX02mUFkjDOfg8oiu Ya1VbOi DJZoVCF5vTttVFdpg1WqLOQ uJ74fkESot3J0LDGvmTdcyQ YuEyWbeNM0lD9gUUxmaxgrr 2hvdzsn Wujgt6nqny26eJ15Y18fJLa vFWDfCWJ9UOHuFLLjdIoxwv 5vdG8uSj5+AQmtt8ewu3qop Bd0ViRd RYQznpWqmTppNHR5d9UrGw0 5F9RocVxjf5WwJtf7vc39mF Cgh3G4fWV3NEaxVAHdzM8zU WxlZnQ6 TDPjBzKtmQ25oMNeSXonTo3 elVetgRtwSS4cMTNdeeqgMT KwjP8uQJSazGWkdJnvZJ1aP TBpbjtm r619HmBxJMQ8OQUidHKmL2J kdH6rAeScSYHzCTMvU6HumZ QiRDldM568KVgsTkR1CJXmy uNuQ6Ah ICDuqXonYgS3m0O8Wa1Da6I pxiprEZX4KGrfYPO3BlFxGz MyAjE2N1DsBbl3TIIphLppX T1eJ2Mk EVUjzddfkgwxgNG5MHLxNDK ocQ99gPSkNVeeAu3aw0Y8x8 39EZWxEECokP90Ug1quLldL TBwdCBU cG7sgnhqz7nrtukpAfQoSOJ kLUo9NCw1PDYjfPatDfTdSO I6QnZ2MMV6hUWflA0wyRzck iyktJ4d Oyc+X65koW6hTJQ5FLK3fgo zKHLmabVtAP73BB88J2YzDc wvdGFibGU+PGRpdiBzdHlsZ M9rHzDu v6yct8MtFTgzP8MdDWOuKEe aTur3EOEaPTE2mOB0aW1xSS YhOZflx3T9nFW5A4XualCfm k3xd2af MVGjPVdoD36auJUuh7H9VIH jmOQ2CSMewHmeSrFjdU54Wr c+JDPhcZsjj5ReNmzgc2mgq 5ripRv3 MjEvFCRlifIuaOmxPNR1x6E zNq31P91hEImdMQNyKSRdVC VwSHXrhCfele1nzQ0uPu6+P GNvbCB3 xFH1nH8dBWKzWrU8UUdqU67 0QtMasFSfCdphd6jik4fdcY p2DcMsCLIrhqHpvYlbPSN3r 1SmBt08 M48uIKamRAMtNQUdRHDfEHH saUvgkm1vlB4oMp6+PC9jb2 jlxl27qV81oLA+SUHjDJA3j WxlPSdw GCWycO2pGObnCdF1ZTThQkS psF28nTWwWYygZn4vaDksfU ejCA0mTVAldrwpi732EjXyq 2xkIDEw yNPqFIcqKIK7Y88db4Y7PUE mFZKvVSB3gKS4gW7izIhizh ogbGVmdDsgdmVydGljYWwtY TzwZ560 IHRvcDsnPlBhdGllbnQgTmF hZUi6O6BjUlu7IELaxVojDH 6fzGDaZSqpQo0wiNzxnRfjT K4bKPGp bjhlb069DlFec1llFBWvfCL kUWnoWVU8Y81kz3Q4NCAaUK AlCLV8lJW0lQ7jnDkoanrve GVmdDsg wnVlfBazNQwgHUkrU139QXZ iyCkuTyMceoIhFQPsyYA9WN 61FI32vZWbz9X2gOD2Z5QtK GRpbmct wtkhvOH6IAEiWUEpeX60Mh0 wxSmfTl1uTQPxBZO9XJWmdI SzE6FjaA0kEfKvVEEvQWHgL 3RleHQt BKspG115YRpwUlV2JDHktiA lU7HmIUPuhWprQqC1h2T0Zp 1HB6K4HE73LZ38lOLkg2I4k GA4M6Lw EQUpnnxtfgodqJO5ONEqRJK lvF12Sy6jmSzeBt0vEYUxZU B0KWWduZCoI8TygH3yTmLqS DAwMDAw Q8LraKDhZBxpC972FMsvToJ 9ISWtudEpE0QdQPIugBioWo B1y1A6Ir0EVQm7GR75GV22s YBtx6O2 qCH6G0UrKIKrbqxnbybiiZU 2OMQhQZMqiR78Qd6zzCwwVh 2lATGsWEO3XDAooMEuH7Fyh X6wBpXk JBQbYDZtJ4DdfDVuAXjoH83 1NOuwOlE9KXEyrpMiV1SsVL JpgPudWeN7x8I2Gh2AKJOyM Z26IZL9 kCG4BW19QT59R7MiTovlvOR ibGU+PHRhYmxlIHdpZHRoPS deFGBoVsXgaPhyWF4uSj7gQ GVyLWNv nVmhgRMqOtVuz5teFTGeTRd cJV8kxZcxX0HlkWT1KKEty5 u3Se98B99vJ9VpoLQ+PGNvb JW1iLI5 yW4fYiBfInE3NHrtZ892ZaA cwSOfOpwvr8gvu1zbkOr7Ob Q5NRLgtxJvgBvuSIJ9c5GuR c80M61p IHdpZHRoPSIxNSUiIHZhbGl dfu4bxB3wDc6+FVOanYS3mF K4uX5gObQlToT7NMdmZ906M nRvcCIv Nfkdf8bpv9uzwQs8JvUuIXX fxzTtnFwjBYA6a3WdYm88O1 ZerIkxc7KzXiu5oj88bVXxg 8H3eEA4 P6BtGNVsjuhlmZTdiUdvXL0 qITHajvgvFYAngB0nJMRtZ5 c9NaWyUpQ3PJgiG5GdjsN5F DEwcHQg LZpdHEF8O73rc4R2ETYdGPM vFTK5zQB8sF0xvDegwpimjP VmdDsgdmVydGljYWwtYWxpZ 246IHRv tMriAKLvwD5eVNCrmLXufMb wCW1aEULqxswrFz3VUSeELq gkC6xBJ43QXGoXEPW1T3OkZ lz8XQBz fXpgTP6yjQGpHXpdUz4qsWt gwKjkHQ4gTTCjnnqaRXBafD 8bUBXjaISqrTfzUQ7tEBPus rcki668 HiHtZUL0OVWhhEYrU4QkgQ4 lVpYfWTEfYKGbS7VpsTQsOO bxK543ZUnoWvF7XLPafzVrB 2FsLWFs zHxmCdP6g3I4Jk9kOq8nPJ0 jQNt4KH92BF32pFJnm2Y3kI A2Z0NxXCBqluzgkzdpoNY2K DAuMDUw cT90nDRiPZpfEq7vz4B3s60 3DCWbYEZwyZ37Cw6tkZqnNH BofTCWkI8kafhkl7ziahhiY zAwMDAw VRs4DEe2MHOvtBjaSqRnQIM 5PrR0ACV2fPNnaJ5dfGzano kdqV4xQus+ScLeIVGsjgI3E 5LsLax6 OWAfdZcxEI0rvRClEHziFa8 wyQrviKpgQL2mAVMgemuoQH UxcF5cQIVhoCIweQybPW9eJ TBpbjtm w386TvJxQEX0CTMcjAOkO4E evS8zZvPlHBTrQCRtX9XjvK FiTEkvK792OQbzBtA7NURsv tGmD3Vz OZPquLxfStF3m2D2Zq5XRQ4 ZTZK8L8LvGak3BFQxpYvvUE 6vnIOpOSsbMj1rwLrdmMwnQ J0nLPJa yqfqDJPnmP5iRJRpqYXbxJs nGA2iHQHsonmqi741DfRnXS G9PYLsiWSuP7GtbX4kFlNfF DAwMDAw P1KlnFNwHFyvV426DJjzOaC 4ISMfnjTkR5XfTUSqnHooOn C1h7A1Ac0XYXxdcBM+PC90c m42M7Jx LcenAjb7GRTsIXR4wLH3aM8 yNFUyIWeeb2R2kPB2O1Mhvu Syee1tc0jfDIVwJTxnZ41ii SZwr7J8 IQVisTD0OXVohBrwAgQrzI6 3Oyc+GRBrnJxyr4DdJigbj6 gpb9hygPi4CdQoVOQyjpPdx WduPSJ0 v9XhNa36Y81kEFelEUNbHXA wUXYxJGJefIbxiv7kvK0iKu 8+RQEwbSU0wQM5eA0aTwVhE kB6WZyd I816FtTcqSRxQsecq4itg5c ejUi6VkJlJNBkitUneXegBN K7e8TbFr74A7HfsEgvc8YiV dv7kv97 xRLzy7A6eMY4O1LzKABmqcs ufBMbgYlmJF5zDETegzerUW VpuI4jVSKmF5h1WpKhHfE3L CawV9Zo crB5QJAktRIyXPHdnTILlV8 drqhgc3bowhfoWtVbLMNcBC z1KWa6BIQgoXhdBnQmXNF1E kB0PDU2 uRLvbZ2yhEheqpqtnY4qAhn +FNd3j8baoUKeAV3ovJR3VF 42NF06oIGpf6B3rDM2B5MwT GRpbmct fwshuGO0VPQmCXUfoV14Oq8 ajCsyCo1aOCRgQUU8SPMmiV GpO4DztX7zJqTlIZOrWAJrL 3RleHQt QIqfH734LWzbHbZ3HHQkhuK iH3OpKURmdHymErZ4z3L3Is 7ZGP24AT46TZ73iGDcu5S4f CA7F9Zj UASmedngpcfgnJR6SGRyIJX yaB61Qq5kvCsrZp4gDQLqNU Y3NLEfgEYmN7YxzK5eHjZuV DAwMDAw M8PzmTEgPWafX071KSzvKaL 6TTRnvfOgI9TlTGRhcHluCp Z7q6X6Iq4ZIn02WS91NV30a NEfw5D9 tAI2T9UkNDFycwrxuiiyrRG 6GBMeKXZomO30Nt9vtKcyCg 5jGXVtQDP5VSBvaHLnM3Psa Y7lDbIr IVDhDXOmT1WaiEMbGUyrT86 4CZveDaL3TQSziqGpW0GsVT GchUafIrT9g2J4Jj7EAPexl me0N4Aj PjwvdHI+AE12HZCmYL37tQK brPJxr6nhzCj8WmPqJMDlIT C7nKeaHJjfg7FbYQGxE50id UFga5B2 IGN (more content not included)... Normal [facility] Miscellaneous Testing LCon 0 06-05-2022 Mis. Test Result LC COMMENT Invalid Interpretation Code [facility] Comment on above: Order Comment: Pap w ith Ct/Ng, hr HPV, rfx 16 and 18/45ThinPrepCervixBrush/Spatula Result Comment: [id number] Source.............Cervix No. of containers..01 ThinPrep Vial Test Ordered: IGP,CtNg,AptimaHPV,rfx16/18,45 DIAGN Comment [facility] NEGATIVE FOR INTRAEPITHELIAL LESION OR MALIGNANCY. ADEQ Comment [facility] Satisfactory for evaluation. No endocervical component is identified. PERFOR Comment [facility] Sujey Zuniga, Home Health Clinical Supervisor (ASCP) COMM . [facility] NOTE Comment WB [...] Negative =G Reference Range: Negative Performed At: [facility] [place] D[place] [id number] Frankie Rebollar MD Ph:[phone] Performed At: [facility] [address] [address] [place], [place] [id number] Kassie Freire MD Ph:[phone] Performed At: [facility] [place] Sesay [id number] Frankie Rebollar MD Ph:[phone] Performed By: #### 1 [id number] ####[facility] (DEFAULT)[address] [place] [address] Consent Formson 06-04-2022 Consent Forms [id number]#1.00O TGTIFF Normal [facility] Mammo Screening 3D Bilate ral.on 06-03-2022 [facility] Mammo Screening 3D Bilateral. Mammogram screening 3-D [...] level on the MLO view. R2 image Supervisor Tree Trimming was utilized for this study. IMPRESSION: Asymmetric [...] Need additional imaging evaluation Recommendation: Additional projections [facility] Outside Recordson 06-03-2022 Outside Records [id number]#1.00OT [facility]-2022 Provider Orders [id number]#1.00O [facility] Miscellaneous Testing LCon 0 05-26-2022 Miscellaneous Testing LC Pap w/ Ct/Ng, hr HPV, rfx Invalid Interpretation Code [facility] Comment on above: Order Comment: Pap w ith Ct/Ng, hr HPV, rfx 16 and 18/45ThinPrepCervixBrush/Spatula Performed By: #### 1 [id number] ####[facility] (DEFAULT)[address] [place] [address] Test Code LC 468196 Invalid Interpretation Code [facility] Comment on above: Order Comment: Pap w ith Ct/Ng, hr HPV, rfx 16 and 18/45ThinPrepCervixBrush/Spatula Performed By: #### 1 [id number] ####[facility] (DEFAULT)[address] [place] [address] Test Name LC Pap w/ Ct/Ng, hr HPV , rfx Invalid Interpretation Code [facility] Comment on above: Order Comment: Pap w ith Ct/Ng, hr HPV, rfx 16 and 18/45ThinPrepCervixBrush/Spatula Performed By: #### 1 [id number] ####[facility] (DEFAULT)[address] [place] [address] Outside Recordson 05-22-2022 Outside Records [id number]#1.00O [facility] CBC AUTO DIFFon 03-23-2020 Basophils (Bld) [#/Vol] 0.1 103/ul Normal 0.0-0.1 [facility] Comment on above: Performed By: #### C BC #### [facility] [address] [place], [place] [address] Akin Aysha Basophils/100 WBC (Bld) 0.6 % Normal 0.2-2.0 [facility] Comment on above: Performed By: #### C BC #### [facility] [address] [place], [place] [address] Akin Aysha Eosinophils (Bld) [#/Vol] 0.2 103/ul Normal 0.0-0.7 [facility] Comment on above: Performed By: #### C BC #### [facility] [address] [place], [place] [address] Akin Aysha Eosinophils/100 WBC (Bld) 2.3 % Normal 0.9-7.0 [facility] Comment on above: Performed By: #### C BC #### [facility] [address] [place], [place] [address] Akin Aysha Erythrocyte distribution width (RBC) [Ratio] 12.2 % Normal 11.0-15.0 [facility] Comment on above: Performed By: #### C BC #### [facility] [address] [place] [address] Akin Aysha Hematocrit (Bld) [Volume fraction] 43.4 % Normal 36.0-48.0 [facility] Comment on above: Performed By: #### C BC #### [facility] [address] [place], [place] [address] A[place] Aysha Hemoglobin (Bld) [Mass/Vol] 14.4 g/dL Normal 12.0-16.0 [facility] Comment on above: Performed By: #### C BC #### [facility] [address] [place] [address] Akin Aysha IG # 0.03 10e3/ul Normal 0.00-0.03 [facility] Comment on above: Performed By: #### C BC #### [facility] [address] [place], [place] [address] A[place] IG % 0.3 % Normal 0.0-0.5 [facility] Comment on above: Performed By: #### C BC #### [facility] [address] [place], [place] [address] A[place] Lymphocytes (Bld) [#/Vol] 3.8 103/ul Normal 1.2-3.8 [facility] Comment on above: Performed By: #### C BC #### [facility] [address] [place], [place] [address] A[place] Aysha Lymphocytes/100 WBC (Bld) 37.3 % Normal 20.5-60.0 [facility] Comment on above: Performed By: #### C BC #### [facility] [address] [place], [place] [address] A[place] Aysha MANUAL DIFF REQ NO Normal [facility] Comment on above: Performed By: #### C BC #### [facility] [address] [place], [place] [address] Akin Aysha MCH (RBC) [Entitic mass] 30.9 pg Normal 26.7-34.0 [facility] Comment on above: Performed By: #### C BC #### [facility] [address] [place] [address] A[place] A[place] MCHC (RBC) [Mass/Vol] 33.2 g/dL Normal 29.9-35.2 [facility] Comment on above: Performed By: #### C BC #### [facility] [address] [place], [place] [address] A[place] MCV (RBC) [Entitic vol] 93.1 fL Normal 81.0-99.0 [facility] Comment on above: Performed By: #### C BC #### [facility] [address] [place], [place] [address] A[place] Monocytes (Bld) [#/Vol] 0.9 103/ul Critically high 0.3-0.8 [facility] Comment on above: Performed By: #### C BC #### [facility] [address] [place], [place] [address] A[place] Monocytes/100 WBC (Bld) 8.7 % Normal 1.7-12.0 [facility] Comment on above: Performed By: #### C BC #### [facility] [address] [place], [place] [address] A[place]ha Neutrophils (Bld) [#/Vol] 5.2 103/ul Normal 1.4-6.5 [facility] Comment on above: Performed By: #### C BC #### [facility] [address] [place], [place] [address] [place] Neutrophils/100 WBC (Bld) 50.8 % Normal 43.0-75.0 [facility] Comment on above: Performed By: #### C BC #### [facility] [address] [place], [place] [address] [place] Platelet mean volume (Bld) [Entitic vol] 8.6 fL Critically low 9.5-13.5 [facility] Comment on above: Performed By: #### C BC #### [facility] [address] [place], [place] [address] [place] Platelets (Bld) [#/Vol] 347 103/ul Normal 150-450 [facility] Comment on above: Performed By: #### C BC #### [facility] [address] [place], [place] [address] A[place] RBC (Bld) [#/Vol] 4.66 106/ul Normal 4.20-5.40 [facility] Comment on above: Performed By: #### C BC #### [facility] [address] [place] [address] A[place] WBC (Bld) [#/Vol] 10.2 103/ul Normal 4.0-11.0 [facility] Comment on above: Performed By: #### C BC #### [facility] [address] [place], [place] [address] [place] CT STROKE HEAD WOon 03-23-19 [...] time of dictation. Electronically authenticated by: CARMENCITA SAID Date: 2020-03-22 23:46 Normal [facility] CTA HEAD WO W CONon 03-23-19 21 CTA HEAD WO W CON EXAM: CTA HEAD WO W CON 03/22/2020 11:04 PM EST [id number] CLINICAL STATEMENT: Dysarthria COMPARISON: No prior studies are available at the time of dictation. TECHNIQUE: Routine [place]/brain CT angiogram protocol was performed following 75 cc Omnipaque 350 of intravenous contrast. AEC is utilized. 2-D and 3D reconstructions were reviewed. FINDINGS: There is no evidence for intracranial aneurysm and/or high-grade stenosis of the [place]. The vertebrobasilar artery is patent [...] by: CARMENCITA SAID Date: 2020-03-23 00:52 Normal [facility] CTA NECK WO W CONon 03-23-19 21 [...] Electronically authenticated by: CARMENCITA SAID Date: 2020-03-23 00:54 Normal [facility] CULTURE URINEon 03-23-2020 CULTURE URINE Culture Observations : NO GROWTH Normal [facility] Comment on above: Performed By: #### I NFLUAB #### [facility] [address] [place] [address] A[place] Aysha DRUG SCREEN RAPID (URINE)on 03-23-2020 AMP Negative Normal NEGATIVE [facility] Comment on above: Performed By: #### U MICRO, DRUGRPD, ERUR #### [facility] [address] [place] [address] [place] BAR Negative Normal NEGATIVE [facility] Comment on above: Performed By: #### U MICRO, DRUGRPD, ERUR #### [facility] [address] [place] [address] A[place] BUP Negative Normal NEGATIVE [facility] Comment on above: Performed By: #### U MICRO, DRUGRPD, ERUR #### [facility] [address] [place] [address] A[place] BZO Negative Normal NEGATIVE [facility] Comment on above: Performed By: #### U MICRO, DRUGRPD, ERUR #### [facility] [address] [place] [address] [place] JESUS Negative Normal NEGATIVE [facility] Comment on above: Performed By: #### U MICRO, DRUGRPD, ERUR #### [facility] [address] [place] [address] A[place] Aysha CUT-OFFS SEE BELOW Normal [facility] Comment on above: Result Comment: AMP (Amphetamine): [...] By: #### U MICRO, DRUGRPD, ERUR #### [facility] [address] [place] [address] DRUG CUT HEADER DRUG CLASS TEST SYST EM CUT-OFF CONCENTRATIONS ARE FOLLOWS: Normal [facility] Comment on above: Performed By: #### U MICRO, DRUGRPD, ERUR #### [facility] [address] [place] [address] [place] mAMP Negative Normal NEGATIVE [facility] Comment on above: Performed By: #### U MICRO, DRUGRPD, ERUR #### [facility] [address] [place] [address] A[place] MTD Negative Normal NEGATIVE [facility] Comment on above: Performed By: #### U MICRO, DRUGRPD, ERUR #### [facility] [address] [place] [address] A[place] Ays[place] OPI Negative Normal NEGATIVE [facility] Comment on above: Performed By: #### U MICRO, DRUGRPD, ERUR #### [facility] [address] [place] [address] [place] OXY Negative Normal NEGATIVE [facility] Comment on above: Performed By: #### U MICRO, DRUGRPD, ERUR #### [facility] [address] [place] [address] PCP Negative Normal NEGATIVE [facility] Comment on above: Performed By: #### U MICRO, DRUGRPD, ERUR #### [facility] [address] [place] [address] [place] PPX Negative Normal NEGATIVE [facility] Comment on above: Performed By: #### U MICRO, DRUGRPD, ERUR #### [facility] [address] [place] [address] A[place] Aysha TCA Negative Normal NEGATIVE [facility] Comment on above: Performed By: #### U MICRO, DRUGRPD, ERUR #### [facility] [address] [place] [address] A[place] Ays[place] THC Positive Abnormal NEGATIVE [facility] Comment on above: Performed By: #### U MICRO, DRUGRPD, ERUR #### [facility] [address] [place] [address] Akin Aysha ER URINE PROFILEon 1 Bilirubin [Mass/Vol] Negative Normal NEGATIVE [facility] Comment on above: Performed By: #### U MICRO, DRUGRPD, ERUR #### [facility] [address] [place] [address] A[place] Aysha BLOOD TRACE-INTACT Abnormal NEGATIVE [facility] Comment on above: Performed By: #### U MICRO, DRUGRPD, ERUR #### [facility] [address] [place] [address] A[place] Clarity (U) CLEAR Normal CLEAR [facility] Comment on above: Performed By: #### U MICRO, DRUGRPD, ERUR #### [facility] [address] [place] [address] A[place] Color (U) YELLOW Normal YELLOW [facility] Comment on above: Performed By: #### U MICRO, DRUGRPD, ERUR #### [facility] [address] [place] [address] A[place]ysha ERUAHD A micrscopic examination will be performed if indicated. Normal [facility] Comment on above: Performed By: #### U MICRO, DRUGRPD, ERUR #### [facility] [address] [place] [address] A[place] A[place] Glucose [Mass/Vol] Negative Normal NEGATIVE [facility] Comment on above: Performed By: #### U MICRO, DRUGRPD, ERUR #### [facility] [address] [place] [address] A[place] Aysha Ketones Ql (U) Negative Normal NEGATIVE [facility] Comment on above: Performed By: #### U MICRO, DRUGRPD, ERUR #### [facility] [address] [place] [address] Akin Aysha Nitrite Ql (U) Negative Normal NEGATIVE [facility] Comment on above: Performed By: #### U MICRO, DRUGRPD, ERUR #### [facility] [address] [place] [address] Akin [place]ha pH (Bld) 5.5 Normal 5-9 [facility] Comment on above: Performed By: #### U MICRO, DRUGRPD, ERUR #### [facility] [address] [place] [address] A[place] Protein (U) [Mass/Vol] Negative Normal NEGATIVE/ TRACE [facility] Comment on above: Performed By: #### U MICRO, DRUGRPD, ERUR #### [facility] [address] [place] [address] Akin [place] SPEC GRAVITY 1.025 Normal 1.005-<=1.025 [facility] Comment on above: Performed By: #### U MICRO, DRUGRPD, ERUR #### [facility] [address] [place] [address] A[place] UR MICRO IND INDICATED Normal [facility] Comment on above: Performed By: #### U MICRO, DRUGRPD, ERUR #### [facility] [address] [place] [address] Akin Aysha Urobilinogen Qn (U) 0.2 EU/dl Normal 0.2 - 1.0 [facility] Comment on above: Performed By: #### U MICRO, DRUGRPD, ERUR #### [facility] [address] [place] [address] Akin Aysha WBC (Bld) [#/Vol] Negative Normal NEGATIVE [facility] Comment on above: Performed By: #### U MICRO, DRUGRPD, ERUR #### [facility] [address] [place] [address] A[place] POINT OF CARE GLUCOSEon 03-11 Glucose [Mass/Vol] 111 mg/dL Critically high 74-106 T [facility] Comment on above: Performed By: #### P OCGLUC #### [facility] [address] [place], [place] [address] A[place] URon 03-23-2020 , QUAL Negative Normal NEGATIVE [facility] Comment on above: Performed By: #### P REGU #### [facility] [address] [place], [place] [address] A[place] PROF 14(COMP METB)on 021 Albumin [Mass/Vol] 3.9 g/dL Normal 3.5-5.0 [facility] Comment on above: Performed By: #### C CHRISTIAN HSTROPN #### [facility] [address] [place] [address] A[place] Aysha Albumin/Globulin [Mass ratio] 1.0 {ratio} Normal [facility] Comment on above: Performed By: #### C CHRISTIAN HSTROPN #### [facility] [address] [place], [place] [address] Akin Aysha ALP [Catalytic activity/Vol] 43 U/L Normal 38-126 [facility] Comment on above: Performed By: #### C CHRISTIAN HSTROPN #### [facility] [address] [place] [address] A[place] Aysha ALT [Catalytic activity/Vol] 29 U/L Normal 9-52 [facility] Comment on above: Performed By: #### C CHRISTIAN HSTROPN #### [facility] [address] [place], [place] [address] A[place] Anion gap [Moles/Vol] 13.1 mmol/L Normal [facility] Comment on above: Performed By: #### C CHRISTIAN HSTROPN #### [facility] [address] [place], [place] [address] A[place] AST [Catalytic activity/Vol] 20 U/L Normal 14-36 [facility] Comment on above: Performed By: #### C MP, HSTROPN #### [facility] [address] [place] [address] [place] Bilirubin Ql (U) 0.2 mg/dL Normal 0.2-1.3 [facility] Comment on above: Performed By: #### C CHRISTIAN, HSTROPN #### [facility] [address] [place] [address] [place] Calcium [Mass/Vol] 9.3 mg/dL Normal 8.4-10.2 [facility] Comment on above: Performed By: #### C MP, HSTROPN #### [facility] [address] [place] [address] A[place] Aysha Chloride [Moles/Vol] 105 mmol/L Normal 98-107 [facility] Comment on above: Performed By: #### C CHRISTIAN, HSTROPN #### [facility] [address] [place] [address] A[place] CO2 [Moles/Vol] 24.4 mmol/L Normal 22.0-30.0 [facility] Comment on above: Performed By: #### C CHRISTIAN, HSTROPN #### [facility] [address] [place] [address] A[place] Creatinine [Mass/Vol] 0.72 mg/dL Normal 0.52-1.04 [facility] Comment on above: Performed By: #### C CHRISTIAN, HSTROPN #### [facility] [address] [place] [address] A[place] Aysha EGFR-AF [place] >60 Normal >=60 [facility] Comment on above: Performed By: #### C MP, HSTROPN #### [facility] [address] [place] [address] A[place] EGFR-NON AF [place] >60 Normal >=60 [facility] Comment on above: Performed By: #### C MP, HSTROPN #### [facility] [address] [place] [address] A[place] A[place] Globulin (S) [Mass/Vol] 3.8 g/dL Normal [facility] Comment on above: Performed By: #### C MP, HSTROPN #### [facility] [address] [place], [place] [address] A[place] Glucose [Mass/Vol] 91 mg/dL Normal 74-106 [facility] Comment on above: Performed By: #### C MP, HSTROPN #### [facility] [address] [place] [id number] [place] Potassium [Moles/Vol] 3.5 mmol/L Normal 3.4-5.0 [facility] Comment on above: Performed By: #### C MP, HSTROPN #### [facility] [address] [place], [place] [address] A[place] Protein [Mass/Vol] 7.7 g/dL Normal 6.1-8.2 [facility] Comment on above: Performed By: #### C MP, HSTROPN #### [facility] [address] [place] [address] A[place] Aysha Sodium [Moles/Vol] 139 mmol/L Normal 137-145 [facility] Comment on above: Performed By: #### C MP, HSTROPN #### [facility] [address] [place] [id number] A[place] A[place] Urea nitrogen [Mass/Vol] 15.0 mg/dL Normal 7.0-17.0 [facility] Comment on above: Performed By: #### C MP, HSTROPN #### [facility] [address] [place], [place] [address] A[place] Urea nitrogen/Creatinin e [Mass ratio] 20.8 mg/mg Normal [facility] Comment on above: Performed By: #### C MP, HSTROPN #### [facility] [address] [place], [place] [address] A[place] TROPONIN, HIGH SENSITIVITYon 03-23-2020 HSTROP 4.0 pg/mL Normal 4.0-35.5 [facility] Comment on above: Result Comment: CUT- OFF POINTS HAVE BEEN ESTABLISHED BASED ON THE FOURTH UNIVERSAL DEFINITIONS OF MYOCARDIAL INFARCTION. THE UPPER REFERENCE LIMIT (URL) OF TROPONIN, DEFINED THE 99TH PERCENTILE OF cTnI DISTRIBUTION IN A REFERENCE POPULATION, HAS BEEN CONFIRMED THE DECISION THRESHOLD FOR [place] DIAGNOSIS. Performed By: #### C MP, HSTROPN #### [facility] [address] [place] [address] A[place] Aysha URINE MICROSCOPIC ONLYon Bacteria LM.HPF (Urine sed) [#/Area] MODERATE Abnormal NONE SEEN [facility] Comment on above: Performed By: #### I NFLUAB #### [facility] [address] [place] [address] A[place] Ays[place] CAST NONE SEEN Normal NONE SEEN [facility] Comment on above: Performed By: #### I NFLUAB #### [facility] [address] [place] [address] Akin Aysha Crystals LM Nom (Urine sed) NONE SEEN Normal NONE SEEN [facility] Comment on above: Performed By: #### I NFLUAB #### [facility] [address] [place] [address] Akin Aysha CULTURE INDICATED Normal [facility] Comment on above: Performed By: #### I NFLUAB #### [facility] [address] [place] [address] A[place] Ays[place] Epithelial cells LM.HPF (Urine sed) [#/Area] FEW Abnormal NONE SEEN /RARE [facility] Comment on above: Performed By: #### I NFLUAB #### [facility] [address] [place] [address] Akin Aysha MUCOUS NONE SEEN Normal NONE SEEN [facility] Comment on above: Performed By: #### I NFLUAB #### [facility] [address] [place] [address] Akin Aysha RBC (U) [#/Vol] 0-2 Normal 0-2 [facility] Comment on above: Performed By: #### I NFLUAB #### [facility] [address] [place] [address] Akin Aysha WBC (Bld) [#/Vol] 2-5 Abnormal NONE SEEN [facility] Comment on above: Performed By: #### I NFLUAB #### [facility] [address] [place], [place] [address] Akin Aysha CBC AUTO DIFFon 05-12-2019 Basophils (Bld) [#/Vol] 0.1 103/ul Normal 0.0-0.1 [facility] Comment on above: Performed By: #### C BC #### [facility] [address] [place], [place] [address] Akin Aysha Basophils/100 WBC (Bld) 0.7 % Normal 0.2-2.0 [facility] Comment on above: Performed By: #### C BC #### [facility] [address] [place] [address] Akin Aysha Eosinophils (Bld) [#/Vol] 0.2 103/ul Normal 0.0-0.7 [facility] Comment on above: Performed By: #### C BC #### [facility] [address] [place] [address] Akin Aysha Eosinophils/100 WBC (Bld) 1.6 % Normal 0.9-7.0 [facility] Comment on above: Performed By: #### C BC #### [facility] [address] [place] [address] Akin Aysha Erythrocyte distribution width (RBC) [Ratio] 12.1 % Normal 11.0-15.0 [facility] Comment on above: Performed By: #### C BC #### [facility] [address] [place] [address] Akin Aysha Hematocrit (Bld) [Volume fraction] 42.5 % Normal 36.0-48.0 [facility] Comment on above: Performed By: #### C BC #### [facility] [address] [place] [address] Akin Aysha Hemoglobin (Bld) [Mass/Vol] 14.5 g/dL Normal 12.0-16.0 [facility] Comment on above: Performed By: #### C BC #### [facility] [address] [place] [address] Akin Aysha IG # 0.03 10e3/ul Normal 0.00-0.03 [facility] Comment on above: Performed By: #### C BC #### [facility] [address] [place], [place] [address] Akin Aysha IG % 0.3 % Normal 0.0-0.5 [facility] Comment on above: Performed By: #### C BC #### [facility] [address] [place] [address] Akin Aysha Lymphocytes (Bld) [#/Vol] 4.2 103/ul Critically high 1.2-3.8 [facility] Comment on above: Performed By: #### C BC #### [facility] [address] [place], [place] [id number] Akin Aysha Lymphocytes/100 WBC (Bld) 36.2 % Normal 20.5-60.0 [facility] Comment on above: Performed By: #### C BC #### [facility] [address] [place], [place] [id number] Akin Aysha MANUAL DIFF REQ NO Normal [facility] Comment on above: Performed By: #### C BC #### [facility] [address] [place] [address] Akin Aysha MCH (RBC) [Entitic mass] 31.3 pg Normal 26.7-34.0 [facility] Comment on above: Performed By: #### C BC #### [facility] [address] [place] [address] Akin Aysha MCHC (RBC) [Mass/Vol] 34.1 g/dL Normal 29.9-35.2 [facility] Comment on above: Performed By: #### C BC #### [facility] [address] [place] [address] Akin Aysha MCV (RBC) [Entitic vol] 91.6 fL Normal 81.0-99.0 [facility] Comment on above: Performed By: #### C BC #### [facility] [address] [place], [place] [id number] Akin Aysha Monocytes (Bld) [#/Vol] 0.8 103/ul Normal 0.3-0.8 [facility] Comment on above: Performed By: #### C BC #### [facility] [address] [place], [place] [address] Akin Aysha Monocytes/100 WBC (Bld) 7.2 % Normal 1.7-12.0 [facility] Comment on above: Performed By: #### C BC #### [facility] [address] [place], [place] [address] Akin Aysha Neutrophils (Bld) [#/Vol] 6.2 103/ul Normal 1.4-6.5 [facility] Comment on above: Performed By: #### C BC #### [facility] [address] [place] [address] Akin Aysha Neutrophils/100 WBC (Bld) 54.0 % Normal 43.0-75.0 [facility] Comment on above: Performed By: #### C BC #### [facility] [address] [place] [address] Akin Aysha Platelet mean volume (Bld) [Entitic vol] 8.7 fL Critically low 9.5-13.5 [facility] Comment on above: Performed By: #### C BC #### [facility] [address] [place] [address] Akin Aysha Platelets (Bld) [#/Vol] 333 103/ul Normal 150-450 [facility] Comment on above: Performed By: #### C BC #### [facility] [address] [place] [address] Akin Aysha RBC (Bld) [#/Vol] 4.64 106/ul Normal 4.20-5.40 [facility] Comment on above: Performed By: #### C BC #### [facility] [address] [place] [address] Akin Aysha WBC (Bld) [#/Vol] 11.5 103/ul Critically high 4.0-11.0 [facility] Comment on above: Performed By: #### C BC #### [facility] [address] [place] [address] Akin Aysha ER URINE PROFILEon 0 Bilirubin [Mass/Vol] Negative Normal NEGATIVE [facility] Comment on above: Performed By: #### I NFLUAB #### [facility] [address] [place] [address] Akin Aysha BLOOD Negative Normal NEGATIVE [facility] Comment on above: Performed By: #### I NFLUAB #### [facility] [address] [place] [address] Akin Aysha Clarity (U) CLOUDY Normal [facility] Comment on above: Performed By: #### I NFLUAB #### [facility] [address] [place] [address] Akin Aysha Color (U) LT. YELLOW Normal YELLOW [facility] Comment on above: Performed By: #### I NFLUAB #### [facility] [address] [place] [address] Akin Aysha ERUAHD A micrscopic examination will be performed if indicated. Normal [facility] Comment on above: Performed By: #### I NFLUAB #### [facility] [address] [place] [address] Akin Aysha Glucose [Mass/Vol] Negative Normal NEGATIVE [facility] Comment on above: Performed By: #### I NFLUAB #### [facility] [address] [place] [address] Akin Aysha Ketones Ql (U) Negative Normal NEGATIVE [facility] Comment on above: Performed By: #### I NFLUAB #### [facility] [address] [place] [address] Akin Aysha Nitrite Ql (U) Negative Normal NEGATIVE [facility] Comment on above: Performed By: #### I NFLUAB #### [facility] [address] [place] [address] Akin Aysha pH (Bld) 8.5 Normal 5-9 [facility] Comment on above: Performed By: #### I NFLUAB #### [facility] [address] [place] [address] Akin Aysha Protein (U) [Mass/Vol] Negative Normal [facility] Comment on above: Performed By: #### I NFLUAB #### [facility] [address] [place] [address] Akin Olmstead SPEC GRAVITY 1.015 Normal 1.005-<=1.025 [facility] Comment on above: Performed By: #### I NFLUAB #### [facility] [address] [place] [address] Akin Olmstead UR MICRO IND NOT INDICATED Normal [facility] Comment on above: Performed By: #### I NFLUAB #### [facility] [address] [place] [address] Akin Olmstead Urobilinogen Qn (U) 0.2 EU/dl Normal [facility] Comment on above: Performed By: #### I NFLUAB #### [facility] [address] [place] [address] Akin Olmstead WBC (Bld) [#/Vol] Negative Normal NEGATIVE [facility] Comment on above: Performed By: #### I NFLUAB #### [facility] [address] [place] [address] Akin Olmstead INFLUENZA A AND B AGon 05-11 INFLUANEGH SEE BELOW Normal [facility] Comment on above: Result Comment: Nega tive for Flu A protein angiten. Infection due to Flu A cannot be ruled out. Flu A angiten in the sample may be below the detection limit of the test. Performed By: #### I NFLUAB #### [facility] [address] [place] [address] Akin Olmstead INFLUBNEGH SEE BELOW Normal [facility] Comment on above: Result Comment: Nega tive for Flu B protein antigen. Infection due to Flu B cannot be ruled out. Flu B antigen in the sample may be below the detection limit of the test. Performed By: #### I NFLUAB #### [facility] [address] [place] [address] Akin Olmstead INFLUENZA A AG Negative Normal NEGATIVE SEE COMMENT [facility] Comment on above: Performed By: #### I NFLUAB #### [facility] [address] [place] [address] Akin Olmstead INFLUENZA B AG Negative Normal NEGATIVE SEE COMMENT [facility] Comment on above: Performed By: #### I NFLUAB #### [facility] [address] [place] [id number] Akin Aysha INTERNAL CONTROLS Within Normal Limits Normal Wi thin Normal Limits [facility] Comment on above: Performed By: #### I NFLUAB #### [facility] [address] [place], [place] [id number] Akin Aysha LACTATE/LACTIC ACIDon 2019 Lactate [Moles/Vol] 0.8 mmol/L Normal 0.7-2.0 [facility] Comment on above: Performed By: #### I NFLUAB #### [facility] [address] [place], [place] [address] Akin Aysha PROF CHEM 8 (BAS METB)on Anion gap [Moles/Vol] 9.3 mmol/L Normal [facility] Comment on above: Performed By: #### B MP #### [facility] [address] [place], [place] [address] Akin Aysha Calcium [Mass/Vol] 9.4 mg/dL Normal 8.4-10.2 [facility] Comment on above: Performed By: #### B MP #### [facility] [address] [place], [place] [address] Akin Aysha Chloride [Moles/Vol] 105 mmol/L Normal 98-107 [facility] Comment on above: Performed By: #### B MP #### [facility] [address] [place], [place] [address] Akin Aysha CO2 [Moles/Vol] 28.3 mmol/L Normal 22.0-30.0 [facility] Comment on above: Performed By: #### B MP #### [facility] [address] [place], [place] [address] Akin Aysha Creatinine [Mass/Vol] 0.81 mg/dL Normal 0.52-1.04 [facility] Comment on above: Performed By: #### B MP #### [facility] [address] [place], [place] [address] Akin Aysha EGFR-AF VIETNAMESE >60 Normal >=60 [facility] Comment on above: Performed By: #### B MP #### [facility] [address] [place], [place] [address] Akin Aysha EGFR-NON AF VIETNAMESE >60 Normal >=60 [facility] Comment on above: Performed By: #### B MP #### [facility] [address] [place], [place] [address] Akin Aysha Glucose [Mass/Vol] 111 mg/dL Critically high 74-106 T [facility] Comment on above: Performed By: #### B MP #### [facility] [address] [place], [place] [address] Akin Aysha Potassium [Moles/Vol] 3.6 mmol/L Normal 3.4-5.0 [facility] Comment on above: Performed By: #### B MP #### [facility] [address] [place], [place] [address] Akin Aysha Sodium [Moles/Vol] 139 mmol/L Normal 137-145 [facility] Comment on above: Performed By: #### B MP #### [facility] [address] [place], [place] [address] Akin Aysha Urea nitrogen [Mass/Vol] 13.0 mg/dL Normal 7.0-17.0 [facility] Comment on above: Performed By: #### B MP #### [facility] [address] [place], [place] [address] Akin Aysha Urea nitrogen/Creatinin e [Mass ratio] 16.0 mg/mg Normal [facility] Comment on above: Performed By: #### B MP #### [facility] [address] [place], [place] [address] Akin Aysha XR CHEST 2 Von 05-12-2019 [...] by: Mayra DEGROOT Date: 2019-05-11 23:24 Normal [facility] DNA Extraction and holdon DNA Extraction and hold SEE BELOW Normal [facility] Comment on above: Result Comment: SPEC IMEN: BLOOD DNA EXTRACTION AND HOLD SPECIMEN TYPE: EDTA Blood Date Received: 12/28/18 EXTRACTION: DNA extracted from 3.0ml EDTA blood Method: GentConecta 2 Puregene Reagents from [employer] ANALYSIS: DNA concentration: 571.4ng/ul Total volume DNA: 225ul (in TE buffer) DNA Purity 260/280 Ratio: 1.9 Total DNA yield: 128.6ug STORAGE AND SPECIAL INSTRUCTIONS: The extracted DNA is stored in the [facility] at -700C in the DS & EX 2019 box. Holding for future testing. Any questions regarding this sample, please contact [facility] at [phone]. VANESSA CUNHA 01/11/2019 Performed By: #### D NEXZ #### [address] [address] SURGICAL PATHOLOGYon 019 SURGICAL PATHOLOGY Specimen #: [id number] Submitting Physician: ASHWINI SIMONS M.D. FINAL DIAGNOSIS Soft tissue, left posterior shoulder, excision - Lipoma with fat necrosis, see comment. SAMRA/NACHO/marybeth 08/08/2018 COMMENT Many thanks for sending in consultation this case of a [id number] with a lesion on the left posterior [...] Please call the Dermatopathology Consultation Service at [phone] with questions or if additional follow-up information becomes available regarding this patient. This case was reviewed in conjunction with the Dermatopathology Fellow, Dr. Clements. Fam Wong M.D. (Electronic Signature) SPECIMEN SUBMITTED A: 12 SLIDES ([id number]: A-J) CLINICAL DATA None provided. Date of Report: 08/08/2018 Date of Procedure: 08/04/2018 Date of Receipt: 08/04/2018 Submitted by: ASHWINI SIMONS M.D. Location: Diagnostic interpretation performed at [facility], [address] [place] [address]. CLIA Number: [id number] Normal [facility] Comment on above: Performed By: #### S #### See report for performing lab information. Vital Signs Date Time Vital Sign Value Performing Clinician Mosesi nelly 04-15-2023 12:35-0500 Body height 152.4 cm Arun Cuevasryland THURMAN Work Phone: [facility] 04-15-2023 12:35-0500 Body mass index (BMI) [Ratio] 29.02 kg/m2 Arun Cuevasryland CHEEMAModulus VideoSENIOR INTEGRATION ARCHITECT Work Phone: [facility] 04-15-2023 12:35-0500 Body weight 67.41 kg Arun Cuevasryland CHEEMAModulus VideoSENIOR INTEGRATION ARCHITECT Work Phone: [employer] 04-15-2023 12:35-0500 Diastolic blood pressure 70 mm[Hg] Arun Cuevasryland CHEEMAModulus VideoSENIOR INTEGRATION ARCHITECT Work Phone: [employer] [facility] 04-15-2023 12:35-0500 Heart rate 80 /min Arun Cuevasryland CHEEMAModulus VideoSENIOR INTEGRATION ARCHITECT Work Phone: [employer] 04-15-2023 12:35-0500 SaO2% (BldA) [Mass fraction] 97 % Arun Cuevas SOFTBALL PLAYER-SENIOR INTEGRATION ARCHITECT Work Phone: [employer] 04-15-2023 12:35-0500 Systolic blood pressure 116 mm[Hg] Aurn Moreno SOFTBALL PLAYER-SENIOR INTEGRATION ARCHITECT Work Phone: [employer] Encounters Encounter Date Encounter Type Care Provider Facility Start: 04-15-2023 End: 04-15-2023 ambulatory [facility] Start: 04-15-2023 Encounter for other preprocedural examination [facility] Start: 04-15-2023 Telephone encounter Arun Perez RN [facility] Comment on above: Surgical Or Dental C learance Start: 04-15-2023 End: 04-15-2023 Office outpatient visit 15 minutes Arun Cuevas SOFTBALL PLAYER-SENIOR INTEGRATION ARCHITECT Work Phone: [facility] Comment on above: Preop examination (P rimary Dx); Paroxysmal atrial fibrillation ([facility]); Near syncope; Atrial flutter, unspecified type ([facility]) Start: 04-15-2023 End: 04-15-2023 Preprocedural examination done Arun Cuevas SOFTBALL PLAYERSENIOR INTEGRATION ARCHITECT Work Phone: [employer] Start: 04-07-2023 End: 04-07-2023 ambulatory Abi Violet Facility:[facility] Start: 03-03-2023 End: 03-03-2023 ambulatory ABI VIOLET Not Available Start: 02-17-2023 End: 02-18-2023 ambulatory Lashell A Sajan COUNSELING DEPARTMENT CHAIR-C Facility:[facility] Start: 02-15-2023 End: 02-15-2023 ambulatory Lashell A Sajan COUNSELING DEPARTMENT CHAIR-C Facility:[facility] Start: 01-08-2023 End: 01-08-2023 ambulatory Lashell A Sajan COUNSELING DEPARTMENT CHAIR-C Facility:[facility] Start: 07-15-2022 End: 07-15-2022 ambulatory Trevon Pruitt Facility:[facility] Start: 07-15-2022 End: 07-15-2022 ambulatory MD Trevon Pruitt Work Phone: [facility] Work Phone: Start: 07-15-2022 End: 07-15-2022 Departed Referred MD Trevon Pruitt Work Phone: [facility] Path Spec Vital[facility] Start: 07-15-2022 End: 07-16-2022 ambulatory Trevon Pruitt Facility:[facility] Start: 07-09-2022 Patient encounter status Arun Moreno SOFTBALL PLAYER-SENIOR INTEGRATION ARCHITECT Work Phone: [employer] Work Phone: Start: 07-09-2022 End: 07-10-2022 ambulatory Tien Mims Benton Facility:[facility] Start: 07-08-2022 End: 07-09-2022 ambulatory Lashell A Sajan COUNSELING DEPARTMENT CHAIR-C [facility] Start: 06-25-2022 End: 06-26-2022 ambulatory Lashell A Sajan COUNSELING DEPARTMENT CHAIR-C Facility:[facility] Start: 06-03-2022 End: 06-04-2022 ambulatory Lashell A Sajan COUNSELING DEPARTMENT CHAIR-C Facility:[facility] Start: 05-26-2022 End: 05-27-2022 ambulatory Lashell A Sajan COUNSELING DEPARTMENT CHAIR-C Facility:[facility] Start: 05-26-2022 End: 05-27-2022 ambulatory Lashell A Sajan COUNSELING DEPARTMENT CHAIR-C Facility[facility] Start: 03-23-2020 End: 03-23-2020 Patient encounter procedure SERA PEREZ Facility:[facility] Start: 05-11-2019 End: 05-12-2019 Patient encounter procedure [facility] DE LA CRUZ Facility: Procedures Date Procedure Procedure Detail Performing Clinician Start: 04-15-2023 Ecg routine ecg w/le ast 12 lds w/i&r Arun Moreno SOFTBALL PLAYER-SENIOR INTEGRATION ARCHITECT Work Phone: Start: 05-12-2019 End: 05-12-2019 Microscopic examination of blood, culture [facility] Comment on above: Performed By: #### I NFLUAB #### [facility] [address] [place] [address] Akin Olmstead Plan of Treatment Date Care Activity Detail Author Start: 04-14-2024 Adult BMI Screening Adult BMI Screen ing [facility] Start: 04-14-2024 Tobacco Screening Tobacco Screening [facility] Start: 08-18-2023 End: 08-18-2023 Patient encounter procedure 08/18/2023 8:45 AM EDT Office Visit [facility] [address] [facility] [address] [place] [address] Bin Pedersen MD [address] [place] [address] [facility] Start: 10-09-2022 Influenza vaccination Influenza Vacc ine [facility] Start: 10-05-2022 DTaP,Tdap and Td Vaccines (7 - Td or Tdap) DTaP,Tdap and Td Vaccines (7 - Td or Tdap) [facility] Start: 2008 Screening for malign ant neoplasm of cervix Pap Smear [facility] Start: 2005 Adult BMI Follow Up Plan Adult BMI Follow Up Plan [facility] Start: 1999 Depression Screening Depression Scre ening [facility] Start: 1987 Tobacco Counseling Tobacco Counselin g [facility] Payers Date Payer Category Payer Self-pay 2022 Medicaid [id number] 2021 Worker's Compensation WORKER'S C OMPENSATION WORKER'S [id number] ONLY [id number] 2021-Present [address] [facility] [address] [place] [address] [id number] 2002 Medicaid [place] [id number] 2002-Present [phone] [address] [place] [address] [id number] 1987 Unknown [id number] 2.16.840.1.295848.3.579.2. 593 1987 Unknown [id number] 2.16.840.1.626193.3.579.2. 593 1987 Unknown [id number] 2.16.840.1.746649.3.579.2. 1259 1987 Unknown [id number] 2.16.840.1.275543.3.579.2. 1987 Unknown [id number] 2.16.840.1.606699.3.579.2. 1987 Unknown [id number] 2.16.840.1.550512.3.579.2. 1987 Unknown [id number] 2.16.840.1.623182.3.579.2. 1987 Unknown [id number] 2.16.840.1.838343.3.579.2. 1987 Unknown [id number] 2.16.840.1.017589.3.579.2. 1987 Unknown [id number] 2.16.840.1.396241.3.579.2. 1987 Unknown [id number] 2.16.840.1.150237.3.579.2. 1987 Unknown [id number] 2.16.840.1.162930.3.579.2. 1987 Unknown [id number] 2.16.840.1.673329.3.579.2. 1987 Unknown [id number] 2.16.840.1.575770.3.579.2. 1987 Unknown [id number] 2.16.840.1.141738.3.579.2. 1286 1959 Unknown [id number] Social History Date Type Detail Facility Tobacco smoking stat [facility] Unknown if ever smoked [facility] Work Phone: Start: 1985 Sex Assigned At Female F [facility] Start: 10-29-2022 Tobacco smoking stat us NHIS Smokes tobacco daily [facility] End: 04-03-2020 History of tobacco use Cigarette Smoker [facility] Start: 2020 End: 10-29-2022 Cigarettes smoked current (pack per day) - Reported 0.5 [facility] Start: 10-29-2022 Tobacco use and exposure Smokeless tobacco non-user [facility] Start: 04-15-2023 Alcohol intake Current non-dr canvas shrinker of alcohol (finding) [facility] Start: 2020 End: 04-15-2023 Tobacco use panel [facility] Childcare Unknown [facility] Start: 1985 Sex Assigned At Not on file P [facility] Medical Equipment Procedure Code Equipment Code Equipment Origin al Text Equipment Identifier Dates Lux-Dx-06/05/2020 [id number] Start: 06-05-2020 Note 04-15-2023 Telephone Encounter - Arun Perez RN - 04/15/2023 4:11 PM EST Note Date & Type Note Facility 04-15-2023 Miscellaneous Notes Formattin g of this note might be different from the original. Patient saw MARCOS in office today for pre-op clearance. [facility] had wanted to know if eliquis needed held for procedure and, if so, how long. Another nurse had left a . Staff from dr. Slade's office returned call. She is going to check with dr. Slade and call us back. Looks like [facility] sent clearance letter today saying okay to hold for 48 hours. documented in this encounter [facility] Telephone encounter Note 04-15-2023 Telephone Encounter - Arun Perez RN - 04/15/2023 4:11 PM EST [...] saying okay to hold for 48 hours. [facility] History of Present illness Narrative 04-15-2023 Arun Moreno APRN-SENIOR INTEGRATION ARCHITECT - 04/15/2023 12:30 PM EST Note Date & Type Note Facility 04-15-2023 History of Present illness Narrative Ariel Salas Date of visit: 04/15/2023 Date of : 1985 Age: 38 y.o. Patient Active Problem List Diagnosis Near syncope SOB (shortness of breath) Mass of subcutaneous tissue of back Lipoma of back Pyelonephritis Atrial flutter (CMS-HCC) Paroxysmal atrial fibrillation ([facility]) Status post placement of implantable loop recorder - [facility] Preop cardiovascular exam No Known Allergies Current [...] Complaint Patient presents with Pre-op Exam ov-pre [id number]-dr slade [id number] History of Present Illness Ariel Salas is a 38-year-old female past medical history of vasovagal syncope, prior TIA with renal infarct in 2020, paroxysmal atrial flutter with CHADS2 Vasc score of 3 on apixaban, [employer] implanted loop recorder Patient presents today for routine follow-up and preoperative risk stratification She will be having a uterine ablation at [facility] later this month She does notice intermittent [...] Medical History: Diagnosis Date Anxiety Atrial fibrillation ([facility]) Dental disease lower dentures Depression Endometriosis Leaky heart valve Low blood pressure Near syncope Seasonal allergies Stroke ([facility]) 03/27/2020 TIA TIA (transient ischemic attack) Visual impairment glasses No data recorded No data recorded No data recorded Past Surgical History: Procedure Laterality Date DILATION AND CURETTAGE OF UTERUS 05/2017 EXCISION LIPOMA Left 07/27/2018 Performed by Stan Dee MD at [facility] REMOVAL 04/2018 Family History [...] of TIA / renal infarct in 2020 [employer] implanted loop recorder Patient is low risk for upcoming surgery, okay to hold apixaban 48 hours prior to procedure and resume as soon as possible once deemed safe postprocedure. Continue remote monitoring Of her loop recorder, she has had brief runs of atrial flutter. Six-month follow-up in [place] with OLMAN Newell 04/15/23 2:44 PM Patient was seen when Dr Paz was present and immediately available in office suite. TODAYS ORDERS Orders Placed This Encounter Procedures POCT EKG FOLLOW UP Return in about 5 months (around 09/15/2023). PCP: OLMAN DURAN Referring Physician: OLMAN Duran [address] [place] [address] OLMAN Damon 04/15/23 [id number] documented in this encounter [facility] Clinical Note 02-15-2023 Note Date & Type [...] develop this condition: ? Living in a senior care or other extended care facility. ? Having [...] at home: Medicines ? Take or apply ewma-ukf-umyaliz and prescription medicines only as told by [...] provider. Document Revised: 05/24/2020 Document Reviewed: 05/24/2020 Intoo Patient Education ? 2022 [employer] [facility] Clinical Note 07-15-2022 Note Date & Type [...] pathology results. Trevon Pruitt M.D. JOB #: [id number] [Electronically Signed on: 07/16/2022 11:39 EDT] Trevon Pruitt MD [Verified on: 07/16/2022 11:39 EDT] Trevon Pruitt MD [Transcribed on: 07/15/2022 12:05 EDT] [facility] Medication management note 05-18-2022 Note Date & Type Note Facility 05-18-2022 Note Entered by Bharti Hernandes on May 18, 2022 08:25:49 EDT From: Radha Hernandes To: [facility] [id number] Sent: 05/18/2022 08:25:49 EDT Subject: Medication Management Not Approved: Refill not appropriate, proposed to provider ethinyl estradiol-etonogestrel (ETONOGESTREL-EE VAGINAL RING) INSERT 1 RING VAGINALLY FOR 21 DAYS, THEN REMOVE FOR 7 DAYS, OR DIRECTED Qty: 3 unknown unit Days Supply: 84 Refills: 0 Substitutions Allowed Route To Pharmacy - [facility] [id number] Signed by Radha Hernandes From: [facility] [id number] To: Lashell Tanner CNP Sent: May 15, [...] Refills: 0 Substitutions Allowed Notes from Pharmacy: [facility] Evaluation note Note Date & Type Note Facility Evaluation note No assessment information [facility] Work Phone: Evaluation note Note Date & Type Note Facility Evaluation note Diagnosis Preop examination- Primary Unspecified pre-operative examination Paroxysmal atrial fibrillation (CMS-HCC) Atrial fibrillation Near syncope Atrial flutter, unspecified type ([facility]) documented in this encounter [facility] [...] content) DATE CREATED AUTHOR 08/09/2018 [facility] DATE CREATED AUTHOR AUTHOR'S ORGANIZ ATION 01/13/2019 [facility] DATE CREATED AUTHOR AUTHOR'S ORGANIZ ATION 03/27/2020 [facility] pital DATE CREATED AUTHOR AUTHOR'S ORGANIZ ATION 03/04/2023 [facility] DATE CREATED AUTHOR AUTHOR'S ORGANIZ ATION 03/05/2023 [facility] DATE CREATED AUTHOR AUTHOR'S ORGANIZ ATION 04/10/2023 [facility] DATE CREATED AUTHOR AUTHOR'S ORGANIZ ATION 04/16/2023 [facility] Care Teams (unrecognized sec tion and content) Team Status: Inactive Member Role Status Dates Trevon Pruitt MD Attending Provider Active Rag Room Supervisor Relationship Specialty Start Date End Date Lashell MoellerANETTE-SENIOR INTEGRATION ARCHITECT [address] [place] [id number] PCP - General Family Medicine 01/22/21 Rag Room Supervisor Relationship Specialty Start Date End Date Lashell MoellerANETTE-SENIOR INTEGRATION ARCHITECT [address] [place] [phone] PCP - General Family Medicine 01/22/21 Goals (unrecognized section and content) Goals may be documented in a n alternate sectionNot on filedocumented as of this encounterNot on filedocumented as of this encounter Reason for Visit (unrecogniz ed section and content) Reason Comments Pre-op Exam ov-pre op-clearance- ablation-dr slade [id number] Reason Onset Date Comments Surgical Or Dental [...] BE BASED ON THE PRIMARY CLINICAL RECORDS. [employer] [facility]. provides no warranty or guarantee of the accuracy or completeness of information in this document.
[2023-04-30 09:17] LABS: Basophils Absolute Auto 0.1 10^3/uL (0.0-0.1); Basophils Percent Auto 0.6 % (0.2-2.0); Eosinophils Absolute Auto 0.2 10^3/uL (0.0-0.7); Eosinophils Percent Auto 2.2 % (0.9-7.0); Hematocrit 42.3 % (36.0-48.0); Hemoglobin 13.8 g/dL (12.0-16.0); Immature Granulocytes Abs Auto 0.03 10^3/uL (0.00-0.03); Immature Granulocytes Pct Auto 0.3 % (0.0-0.5); Lymphocytes Absolute Auto 3.3 10^3/uL (1.2-3.8); Lymphocytes Percent Auto 34.9 % (20.5-60.0); Mean Corpuscular HGB Conc 32.6 g/dL (29.9-35.2); Mean Corpuscular Hemoglobin 30.3 pg (26.7-34.0); Mean Platelet Volume 8.3 fL (9.5-13.5); Monocytes Absolute Auto 0.8 10^3/uL (0.3-0.8); Monocytes Percent Auto 8.1 % (1.7-12.0); Neutrophils Absolute Auto 5.1 10^3/uL (1.4-6.5); Neutrophils Percent Auto 53.9 % (43.0-75.0); Platelet Count 332 10^3/uL (150-450); Red Blood Count 4.55 10^6/uL (4.20-5.40); Red Cell Distribution Width 12.2 % (11.0-15.0); White Blood Count 9.5 10^3/uL (4.0-11.0)
[2023-04-30 09:48] LABS: HCG Quantitative <1 mIU/mL
[2023-04-30] MEDS: LACTATED RINGER'S SOLUTION 1,000 ML 50 ML IV ×2 (10:05→13:10)
--- NOTE | 2023-04-30 13:32 | PM.ONB ---
Brief Operative Note Date of procedure: 04/30/23 Pre-op diagnosis: desires permanent sterilization, multiparity, menorrhagia Post-op diagnosis: same as pre-op Procedure: NAME OF PROCEDURE: robotic assisted Laparoscopic bilateral salpingectomy, with Belia endometrial ablation with hysteroscopy PROCEDURE: The patient was taken back to the OR where she was prepped and draped in the normal sterile fashion after being placed in the dorsal lithotomy position, after being placed under general anesthesia without difficulty. a weighted speculum was then placed into the vagina. Pap and endometrial bx were performed without difficultyThe anterior lip was grasped with a single tooth tenaculum. The patient was then sounded to approximatley 9cm. The patient was gently sounded using Hegar dilators and the hysteroscope was passed through the cervix into the uterus where both ostia were seen. No gross evidence of polyps, fibroids or malignancy. The cervical length was noted to be 4cm. The Belia ablation apparatus was set to approximately 5cm in length. This was placed in through the cervix and into the uterus. After the seal was tested, at that time the total ablation of 120 seconds was performed with the Belia without difficulty. All instruments were removed from the vagina. A wet sponge stick was placed into the patient's vagina. Attention was then turned to the patient's abdomen, where a scalpel was used to make a small infraumbilical incision. The S retractors were then used to dissect the underlying layers until the fascia could be seen. The fascia was then grasped with Dorcas clamps and tented up. A knife was then used to make a small incision to the fascia. The muscle was identified, at that time two sutures of #0 Vicryl on a GI needlewas then used and placed through the fascia. The peritoneum was then identified and entered bluntly. The 10-4 Gaby was then placed into the patient's abdomen. This was confirmed with direct visualization of the bowel, using the laparoscope. The patient's abdomen was then insufflated using approximately 4 liters of CO2 gas. Survey of the patient's abdomen demonstrated normal appearing ovaries, uterus and tubes. A second and third lateral robotic ports, which was 8mm in size, was then placed laterally after incision was made in the skin under direct visualization. the robotic arms were engaged. The patient's tube on the patient's right side was identified. The tube was then tented up using a grasper. The ligasure was used to transect and coagulate the mesosalpingx from the fimbriated end to the insertion at the uterus, the tube was amputated and removed in its entirety.? Excellent hemostasis was noted. ?This was performed on the contralateral sideas well. The lateral ports were then moved under direct visualization with excellent hemostasis. The abdomen was deinsufflated. All instruments were removed from the patient's abdomen. The fascia was closed using the #0 Vicryl on GI needle. The skin was closed using 4-0 Vicryl subcuticularly. All instruments were removed from the patient's vagina as well. The patient was taken out of the dorsal lithotomy position and placed in the supine position and taken to recovery in stable condition. Sponge, lap and needle counts were correct x2. ??? Anesthesia: DEMIAN Surgeon: Juan Lazo Transportation Superintendent: Lizeth Medina Estimated blood loss (mL): 5 Pathology: other (tubes) Condition: stable Disposition: PACU Urinary Catheter Management Urinary Catheter Management Urethral: Cath placed during this visit: no
== END 2023-04-30 15:20 | disposition home or self-care (01) ==
PROVIDERS: Visit Provider Obstetrics & Gynecology
PROC: (CPT 840; principal; 2023-04-30 10:40)
PROC: (CPT 840; 2023-04-30 10:40)
DX: Z30.2 Encounter for sterilization (principal); N92.1 Excessive and frequent menstruation with irregular cycle; R10.2 Pelvic and perineal pain; N93.9 Abnormal uterine and vaginal bleeding, unspecified; Z79.01 Long term (current) use of anticoagulants; Z86.73 Personal history of transient ischemic attack (TIA), and cerebral infarction without residual deficits; F41.8 Other specified anxiety disorders; I48.0 Paroxysmal atrial fibrillation; Z87.891 Personal history of nicotine dependence
CPT/HCPCS: 58563; 58661; 36415; 84702; 85025; 88302; 99999; J1094; J1170; J2704

== ENCOUNTER 2023-06-16 20:44 | Outpatient (REF) | payer OTHER, SELFPAY ==
--- OUTSIDE RECORDS SUMMARY | 2023-06-16 20:48 | XMS_ITS | CCD ---
Author Organization [facility] Care Team Providers Care Chrome Polisher Name Role Phone DELON DE LA CRUZ Attending Unavailable DELON DE LA CRUZ Consulting Unavailable DELON DE LA CRUZ Admitting Unavailable CHERYL DEGROOT Consulting Unavailable ADILIA PEREZ Attending Unavailable ADILIA PEREZ Consulting Unavailable ADILIA PEREZ Admitting Unavailable OSMAR FLORES Primary Care Unavailable Suzi Hernandez Consulting Unavailable MD Trevon Pruitt Attending Provider Sajan ASSEMBLY TECHNICIAN-PLUGMAN, Lashell Primary Care Provider [phone] RHEA MORENO Attending Unavailable SAJAN, LASHELL Referring Unavailable SAJAN, LASHELL Primary Care Unavailable Juan Slade Attending Provider Trevon Pruitt Admitting Unavailable Trevon Pruitt Attending Unavailable Sajan ALLIANCE MANAGER-C, Lashell A Primary Care Unavailable Sajan ALLIANCE MANAGER-C, Lashell A Primary Care Unavailable Sajan ALLIANCE MANAGER-C, Lashell A Attending Unavailable Sajan ALLIANCE MANAGER-C, Lashell A Admitting Unavailable Sajan ALLIANCE MANAGER-C, Lashell A Primary Care Unavailable Sajan ALLIANCE MANAGER-C, Lashell A Admitting Unavailable Sajan ALLIANCE MANAGER-C, Lashell A Attending Unavailable Sajan ALLIANCE MANAGER-C, Lashell A Primary Care Unavailable Ezekiel Wasserman Admitting Unavaila ble Ezekiel Wasserman Attending Unavaila ble Sajan ALLIANCE MANAGER-C, Lashell A Primary Care Unavailable Sajan ALLIANCE MANAGER-C, Lashell A Attending Unavailable Sajan ALLIANCE MANAGER-C, Lashell A Primary Care Unavailable Sajan ALLIANCE MANAGER-C, Lashell A Attending Unavailable Sajan ALLIANCE MANAGER-C, Lashell A Primary Care Unavailable Trevon Pruitt Attending Unavailable Sajan ALLIANCE MANAGER-C, Lashell A Referring Unavailable Trevon Pruitt Attending Unavailable Sajan ALLIANCE MANAGER-C, Lashell A Primary Care Unavailable Tien Felix Admitting Unavailabl Tien Barrios Attending Unavailabl e Sajan ALLIANCE MANAGER-C, Lashell A Primary Care Unavailable Sajan ALLIANCE MANAGER-C, Lashell A Primary Care Unavailable Sajan ALLIANCE MANAGER-C, Lashell A Admitting Unavailable Sajan ALLIANCE MANAGER-C, Lashell A Attending Unavailable Sajan ALLIANCE MANAGER-C, Lashell A Admitting Unavailable Sajan ALLIANCE MANAGER-C, Lashell A Attending Unavailable Sajan ALLIANCE MANAGER-C, Lashell A Primary Care Unavailable Violet, Juan Admitting Unavailable Violet, Juan Attending Unavailable Violet, Juan Attending Unavailable Violet, Juan Admitting Unavailable Trevon Pruitt Attending Unavailable Trevon Pruitt Admitting Unavailable JUAN SLADE Attending Unavailable VIOLET, JUAN Attending Unavailable AUGUSTINE GRAYSON Attending Unavailable Allergies Allergy Classification Reported Allergen(s) Allergy Type Date of Onset Reaction(s) Facility (1 source) No Known Medication Allergies; Translations: [No Known Medication Allergies] Propensity to adverse reactions to drug (disorder) [facility] Repository Medications Current Medications Medication Drug Class(es) Dates Sig (Normalized) Sig (Original) acetaminophen 325 mg oral tablet (2 sources) Start: 07-27-2018 acetaminophen (TYLENOL) tablet 650 mg apixaban 5 mg oral tablet (2 sources) Factor Xa Inhibitor Start: 11-30-2022 take 1 tablet by mouth once daily at bedtime apixaban (ELIQUIS) 5 mg tablet Indications: Atrial flutter, unspecified type ([facility]) TAKE ONE TABLET BY MOUTH EVERY MORNING AND BEFORE BEDTIME 180 tablet 0 11/30/2022 Active levonorgestrel 0.784757 mg/hr intrauterine system (2 sources) Progestin, Progestin-containi [...] not specified as acute or chronic] Onset: 02-23-2021 02-23-2021 Episodic Results Test Name Value Interpretation Reference Range Facility Outside Recordson 05-03-2023 Outside Records [id number]#[id number] TGTIFF Normal [facility] Abner 04-30-2023 L Specimen: [id number] Received: 05/03/23 Status: SALIMA Kilpatrick Num: [id number] Spec Type: Surgical Subm Dr: Juan Slade Tissues: A Fallopian Tube - Sterilization (BILATERAL FT) Procedures: HE/2, Gross/Micro L2 Age/ Patient Sex Location Account Attending Physician Ariel Salas 38/F LABELL [id number] Juan Slade SPEC NUM: [id number] RECD: 05/03/23 STATUS: SALIMA KILPATRICK NUM: [id number] CRISTINA: 04/30/[address]: Juan Slade ENTERED: 05/03/[address]: Ajit,Lab SPEC TYPE: Surgical DEPT: JEFF GIRON ORDERED: HE/2, Gross/Micro L2 ORDERED: HE/2, Gross/Micro L2 Pathological Diagnosis Bilateral Fallopian Tubes, Resection: No Significant Pathologic Abnormality. Clinical Information Request for sterilization, menorrhagia, pelvic pain, abnormal uterine bleeding Gross Description Received in formalin labeled with the patient's name, date of and bilateral fallopian tubes are two purple-morris fimbriated fallopian tube segments measuring 5.5 x 0.7 x 0.5 cm (inked black) and 6.1 x 0.6 x 0.5 cm. Each has an unremarkable, pinpoint lumen on cut section. [employer] sections are submitted in two cassettes labeled A1-A2. CPT Codes 41929 Specimen: [id number] Received: 05/03/23-1246 Status: SALIMA Shonna Num: [id number] Spec Type: Surgical Subm Dr: Juan Slade Tissues: A Fallopian Tube - Sterilization (BILATERAL FT) Procedures: SERINA/Briseida, Shaina/James L2 Patient: Ariel Salas [id number] (Continued) Signed (signature on file) Micheal Napier MD 05/04/23 1431 [facility] POCT EKGOrdered By: Keily Herrera on 04-15-2023 [facility]-07-2023 L Specimen: [id number] Received: 04/08/23-1239 Status: SALIMA Kilpatrick Num: [id number] Spec Type: Surgical Subm Dr: Juan Slade Tissues: A Endometrium - Biopsy (EMBX) Procedures: HE/2, Gross/Micro L4 Age/ Patient Sex Location Account Attending Physician Ariel Salas 38/F LAB[facility] [id number] Juan Slade SPEC NUM: [id number] RECD: 04/08/23 STATUS: SALIMA KILPATRICK NUM: [id number] CRISTINA: 04/07/23- SUBM DR: Juan Slade ENTERED: 04/08/23-1241 [facility] DR: Ajit,Lab SPEC TYPE: Surgical DEPT: JEFF [...] in one cassette labeled A1. CPT Codes 06009 Specimen: [id number] Received: 04/08/23 Status: SALIMA Kilpatrick Num: [id number] Spec Type: Surgical Subm Dr: Juan Slade Tissues: A Endometrium - Biopsy (EMBX) Procedures: HE/2, Gross/Micro L4 Patient: Felicaino Salasdylon Espinosa [id number] (Continued) Signed (signature on file) Micheal Napier MD 04/10/[address] [place] [address] Coding Summaryon 03-04-2023 Coding Summary HTMLBase 64 SznnwhnvUPn7cJc+PGhlYWQ +IS2JECRiU65iwONauR1tM7 NMTElOSywgQVBQTElOSyIgb rLqRV9mnQMdUECt IC8+JP4gJFJpJegzwAIyk1N 0hVZ3M20wcm7kCZtomWY8JK ZyPcLbusyqk4yggSe1JNyhH mluOyBt BTOyxL09BCG1pJ42Pg93kBN xvUGzr2mdeNb0AeDlDANxHV W8mMmyIZsgb9MpWHRrF74mm TUsa8B6 CTRvtBtlqZWhTbIxmWB1qJ9 bDMvjnqeth8jcevjqRnt1wb 13tKNqm7Z9wCS2A9TtfmV3C GJvbGQg KanwgRBEnS5dpefor9tdiej lKwHfRFYxWGq9PBi1YSPosM msYxQsVK33KAT3JRDmpxEqB 2FsLWFs tWpmCrW5p6H3Mu7QG4CPCcf qL0YXSQHQUWlfaYT+PC90cj 36C4SzVjyyUak8BPAhQXU9d SB3uQ3c LCIhRVzny0H0eBZ2A8PokwW xvy8vf1mkGVUoMSgqK83xoK Kbq9I6YTGjdBU3XCBxsUyrJ iBzaG93 Oyc+GOQpoQcze2CcGjwiq2k tw5gcqPx2LvxgRTEyeoAcvT jwLAC5u5XoKl0dRGJafBP1n YS1eG3g CaUtIeG1HEphU307ToYeaPS cIfueA40zA5QoeTX+PHRyPj t5QQTnhSzeZV1uZ3CzZIQqy mctbGVm eQewTP1oBETxrfloHICuiV8 xRMPqU2l5EfRjMzE1VZnwF8 EbJEBrdyxyVh81bW0uHiRnY dV3FIaq P7VjhdO4FPFgsCQnPAizXOL 4T52ts0A9JRMgMKFlIAQ7mO M6cH9ftZdfbvpskJJetBcwl mVydGlj EVvfUDeuE171FZBkwQndAsI vZGluZyBEYXRlOiAgMDEvMj UvMjAyNDwvdGQ+EJLiEBL4q WxlPSAn uGTgOUrcSg0iwBzduInuBA7 lDZPcdxpiYSIihX6jREUeyI QvaOggUC0iJQJrfrusi107P iAxMHB0 DVBwhCLlZ8NlcQ1vMhNaBPW vGTRrE2CsmRJtEZgaL854TR jeQrX8NPXsjdVfD9HyXHCnn WduOiB0 q7C1Vs7Sj4FmouaxU3InuPZ lLxNoEjmaIDb8B8NeCbaquI I+IA92MNKlXN10ACb9JAD9q WxlPSdi BYIdX2NgcG4qLtBvTBTcHQU kOyc+PHRhYmxlIHdpZHRoPS zlBQHgZmXafQybOY6sQm7lZ GVyLWNv xGrgvGVdPaHrl5xyTHLnVWz wYX8knEbgJ0QqhGQ1SULwx5 n9Ji61V22iI4MpoZQ+PGNvb CZ1mDB1 qU7eJmCeCvQ3NCwwQ386YxF dxGWaGnnas9utu0jhiYo8Sn Q0WWHheuYyrYfoQFB4d2RnV b27B51v IHdpZHRoPSIxNSUiIHZhbGl fkl3zkY4bUk7+TMNqeAN4jA H0hO9fEkKyVlD5QDhnM172D nRvcCIv Mzvrc7nyn2manOh0AcMbLJZ tjcItfRddHXH8q0PgZt03P3 FfvRcen9ItGgg1tq82oWVbd 6Y5jRH0 N0YpVYSaggdedLPknKonOL1 cOOFnqtkhDPAbjD5sXUNgV5 s4BdXoJoW3GDodG7SonqG1N GJvbGQg CWAytWUZiJ2uvpvep3xxkyi eVoBvWREvFUa7WTo2NUKipQ qkBnTlVXV5WkQ1ERT9wTRep K4xmZbl fdjluN3fNbm+PXB1fIWdwXZ NYO7yQycxvJV+WQYqQAD6jN snLUylFYJbpY4rPNHmV1c8V iAwLjA1 KKexY5SmvtK0JQUxkUIkAHN gcCHPwR9ikqwna2cgwbkuIl DlTPNsQIr8ZZt7USVfbBwcL iBsZWZ0 MhE2GNC2oHTbxS9loJcnzai dzH9jTnl+NjipxMreDGA1DD b7C5WcGux0BURzhBazUS6cz GFkZGlu Ma1yuEejjGoyLT6fAFTlfhk rw245BlEfm5qsRPHxyUTuON hvKUG7H08oo8V0EAViAZVaK YB1zZZ6 gK4lcHlbgwaqsRVjaPhwjdI xrKypFMoqBRpeU701GRZgqO lpHcLwWDz9D5MoKxg8HOMqc ShqKT3v yBKzSRzrOk2doZzfjRspYG7 hLRKkgreht251KsKfm1rfVB DyvKSbZJzvZNU8W45ko5N7D CMwMDAw LZO5kJH9wT8lxWmohnoibHF mdDsgdmVydGljYWwtYWxpZ2 59RJHxjOawAuEgzJn4V8SmC yw9SMVf zOyxQJ3xfREpINphDw2byUd jkFquZU5yXZRovsswj706Kx Gma7wlMVVlwIJoYVjgISV6V 95ig8M8 QVXbEHIsQHY5lGW1uP0xcNs nbjogbGVmdDsgdmVydGljYW abWLxqP923YKFmoXmaLoJbi GllbnQg NTmgYXk4S5HbDyyllAF+PC9 8BIPsYH41wUFsbFYsp7eatA m5LlHnZCCtBNT5oIomGHmju 3JkZXIt L75sqDCng7W5LORmqDrahED yUyLakXO1pR6yVRniuenrf7 xejrapFmzlc4towz51tO59S 29sIHdp ZHRoPSIzMCUiIHZhbGlnbj0 qsN0sNk9+MROyjIG4xOY4hK 4kXFJjDoQ4ARwyD752QoZwe CIvPjxj w7pda4hkaCv9MvF4IJPyctC naVlpMMT2e0FwSx94V06tHR dpZHRoPSIyMCUiIHZhbGlnb s8yiO5r Ii8+GXNbkSI7oZG6hO5mNoK yNjO2ZLjaN587SeUfqSAmPg bwE44aS2SdwOS+NOQtIyb7G CBzdHls YG8iuYHiAMrmHg9rYCQ9VjF oTcJaLYqhP7YwUWEwrxhxuh awhKR0UTErTWVvlV06Kr8cz DogMTBw tXRQyL6pwlowl1ynzlusEqQ lPHHzAWz3ZNv3TFRgvEnhYk QrYTT5HkG7NTS1cOAncB1ra Glnbjog dD9oU9EtCPGxbueuQa36pS9 tZtKoSxW4YFamBdb+TUlMTE VSLCBTSEFXTkVMTEUgRTwvd GQ+PHRk WLI6vJsoFUqaUNAltP8bXFK nO4y9AaPfShC9JOydS4EtFJ ItlkctQl30hU7iJlFdAjU9N YdxW3Oy jqC8VBHigWOxEHlyLKA1A72 st4R0WBOyGWJbWAE3qKQ5hA 1hbGlnbjogbGVmdDsgdmVyd GljYWwt AShpS400QKXrgDqaMmTmXeZ eJmG3FXj0K6PjHzb7OFNgjT ffBN7laMYzIDvsJo7fpAawe PbpGD4r IJZnfaecFPXvmL1uDZPkpAR szXenKO7rVEWncaykh021Vc LpLLO7MWJflJTnY8IouK9xK iAjMDAw SRSxZ4RcfSLlRGibZ359XBi mVuU2JUSzabVjF2VgXCGptR ebWjY3k1N4Ix5nLZNBNDXir zwvdGQ+ UIUlVBP5mKucDIvhQGNdvR5 cQKBxK3h1AyWrEbO3XZltY9 LzDXSfthpuQi94cB3cGhQxR oV9WUaa G6OxbiU4CFLnkQPhOPnyXBL 7C96aa2K3KLOeOUDfHUH9hO Q9jJ6siFdwoqcpmTQkxWxgy mVydGlj UQpwVUnwJ929VQWriJjmCfH FTUFMRTwvdGQ+PDZdNRC2dK zkIPhfUYOoqJ5aHTKzX8r8E iAwLjA1 XYwnQ0BrTFWjzdtvPz79gW4 qQoPcHoQ4ECleH5QgwaR2JA EneRLdXXpbDKM4H56qy9R9K CMwMDAw QJK9zAG8eH4nkVolbdidhJI mdDsgdmVydGljYWwtYWxpZ2 92WZZdtCpzSk2HFZ80XX12S 3RyPjwv dGFibGU+PHRhYmxlIHdpZHR pKFxlMZKzGbByxGtmDX1uMc 9yZGVyLWNvbGxhcHNlOiBjb 2xsYXBz BNvgBD3xsRsaO7ZzsOT2KYO sn5n6Mi73W42xR6UasUC+PG AozKS2nMZ8pC6eEvMnQzZ1K CgjP474 SnIxhYInAwsij4gac9nchNi 9SjDkXXCbvpXabOclVSV6h0 GiCn87G45nIKqyCVAtWVHaO CUiIHZh xUadql4viV6qHt1+PGNvbCB 3cZZ4cQ9hKzKcBbF5QJmqM9 38VsXfjHInPshpJ76gS3Yzf XA+PHRy Lwb3OZFeqAmjWD4lhZIjUMs iBm0rTLX0NxQgRuFaFEymG8 DiUKPugltdbufaiFP0HCNnB DUwaW47 Nf7hlCkkAq0aCPQoTZM6OVS nkUVsN9EznL6yQnRlRXAfSF ChG1DjvOTlYXxqD390KIyvI yS3HWBw kfQiC5IxOEPtgAkmJmC7j1N 3Qp3MiYzriBCpSZ5tAaQpIP d7S6VmYgz6EPNheTvzZH1mc GFkZGlu Kn0egFkzuEypEW2tTWYfkme yz811VmYlf1ctFGPgoCPxPA brCSX5L57km8O3ZWOtYPGoK JS7nSJ8 wI4ncLewdvvovGBxtXvfnmY rbGfrHEjlZYtaA724DHEimU ioOgIZRpl6F5BcFaz2AQIym SnzZO6s oFUcBLjmNk6ymNjqgBgcWS6 hSXQfwnidp287MvXez1kgUN FqiDZaBYeaSEF3G97sq8A8F CMwMDAw EGV6tPV5qG6phHyugggjwDL mdDsgdmVydGljYWwtYWxpZ2 30AWBrlQbdJw2WNcj9P1SbK ae0JMWo sWdaNJ5phSCrMQrsWk3pnZu itNkwKB2hYMFjkohrf395Lq Avx0okLSUunCKkRTefKIP5A 31ah3Y6 TYKjQHFcSZD4hFO8hJ4iwXy nbjogbGVmdDsgdmVydGljYW pyRIozK896NBQilWwoRaIbr WVyOjwv dGQ+DX04lo93D7McYlzxPty 3PJZbHKR1fIX0wM9eIZNsUW ulw6F4jYZ3W5DluqMhtr7dj 2xsYXBz ZTo (more content not included)... Normal [facility] Patient Handouton 02-17-2023 Patient Handout Dermatology Pityriasis [...] instructions at home: ? Take or apply lyeu-nce-otnpkdt and prescription medicines only as told by [...] Reviewed: 11/20/2020 Elsevier Patient Education ? 2021 [employer] Normal [facility] ED Clinical Summaryon 2023 ED Clinical Summary [facility] ? Urgent Care [address] [place] [address] [id number] Clinical Summary PERSON INFORMATION Name: ARIEL SALAS Age: 37 Years Sex: FEMALE : 1985 MRN: Acct#: Visit Reason: Skin; RASH Arrival: 02/15/2023 11:21:04 Discharge: 02/15/2023 12:00:00 LOS: 000 00:39 Check In: 02/15/2023 11:21:04 Checkout: 02/15/2023 12:00:00 Address: [address] [place] [id number] PCP: Lashell Tanner PROVIDER INFORMATION Provider Role Assigned Unassigned Nallely Crow FIRE ADJUSTER Nurse 02/15/2023 11:28:03 Ezekiel Wasserman ED 02/15/2023 11:30:29 VITALS INFORMATION Vital Sign Triage Latest Temperature Tympanic Temperature Temporal Artery Pulse Rate O2 Sat 98 % 98 % Respiratory Rate Blood Pressure /79 mmHg /79 mmHg MEDICAL INFORMATION Medications Given: Allergy Information: No Known Medication Allergies PHYSICIAN DOCUMENTATION DISCHARGE INFORMATION: Discharge Disposition: Home Discharge Location: Home PATIENT EDUCATION INFORMATION Instructions: Scabies, Adult Follow-Up: With: Address: When: Lashell Tanner [address] [place] [address] [phone] Within 3 to 5 days Comments: Diagnosis [...] verbalizes understanding of instructions given Comment: Normal [facility] ED Patient Summaryon 024 ED Patient Summary [facility] ? Urgent Care [address] [place] [address] PATIENT DISCHARGE INSTRUCTIONS Patient Information Name: ARIEL SALAS Age: 37 Years Date of : 1985 Reason For Visit: Skin; RASH Arrival Time: 02/15/2023 11:21:04 Primary Care Physician: Lashell Tanner Attending Physician: Ezekiel Wasserman Comment: Patient Education With: Address: When: Lashell Tanner [address] [place] [address] Within 3 to 5 days Comments: Diagnosis [...] at home: Medicines ? Take or apply itxy-chg-zxfwheu and prescription medicines only as told by [...] care provid (more content not included)... Normal [facility] Recordon 024 Urgent Care Record [facility] ? Urgent Care [address] [place] [address] PATIENT DISCHARGE INSTRUCTIONS Patient Information Name: ARIEL SALAS Age: 37 Years Date of : 1985 Reason For Visit: Skin; RASH Arrival Time: 02/15/2023 11:21:04 Primary Care Physician: Lashell Tanner Attending Physician: Ezekiel Wasserman Comment: Visit Diagnosis: Diagnoses This Visit Scabies (B86) Skin (3QSegVDexLS7lVcVp0rwkw ) If you received any narcotics, sedation, [...] any legal documents With: Address: When: Sajan HUGHES, Lashell Ирина [address] [place] [address] Within 3 to 5 days Comments: [...] and treatment you received today in the [facility] were for an urgent problem and are not intended as complete care. It is important for you to follow up with a doctor, nurse practitioner, or physician?s assistant account manager for ongoing care. If your symptoms become [...] so we can reach you if necessary. [facility] has provided you with a complete list of medications post discharge. Please inform your stonemason helper/provider of your visit and for further instruction on these medications. Any specific questions regarding your chronic medications and dosages should be discussed with your primary care physician(s) and/or pharmacist. New Medications [facility] [id number], [address] [place], [place] [id number], [phone] cetirizine (ZyrTEC 10 mg oral tablet) 1 [...] then vomi (more content not included)... Normal [facility] Reminder Messageson 01-21-20 Reminder Messages Entered by Palak López RN on January 20, 2023 13:38:33 EST order placed by PCP From: Palak López RN (General Surgery Clerical Pool ([facility])) To: General Surgery Clerical Pool ([facility]); Sent: 07/21/2022 14:02:43 EDT Show up: 01/20/2023 13:02:00 EST Subject: mammogram Reminder: Please call patient to: Please schedule patient for: repeat left breast diagnostic mamm Please ask patient to: Results Follow up Required for: Visit Summary For ARIEL SALAS Age: 37 years Sex: FEMALE : 1985 Address: [address] [place] [address], [phone] Home: Work: -- Primary Care Provider: Lashell Tanner Race: White Ethnicity: Not or Language: Cymro Health Plan: 1?MEDICAID [facility], 2?MEDICAID [facility] Outside Recordson 08-19-2022 Outside Records [id number] [facility] Result[facility] 3 Lab - [facility] Results [id number] [facility] Pathology Sendout Teston Pathology Send Out. See Report [facility] Comment on above: Order Comment: Lt br east bx 600, samples x2 taken at 835 Performed By: #### 2 [id number] ####[facility] (DEFAULT)[address] [place] [address] Coding Summaryon 07-30-2022 Coding Summary HTMLBase 64 WxcfliuiSFy3dOb+PGhlYWQ +IC2TZIYyH14wqYYmfC3bZ4 NMTElOSywgQVBQTElOSyIgb gNiVB4uaAYhLASv IC8+DG4bLJQeXzlxrJUkk1M 0ySR3K67sts4uWJupjNM6JY TbEfDqrcpuv6yflCz5HWfhK mluOyBt DENdaQ37IXP5yM78Qt33pFO sbUOzg9kgjPj0JzLfYVWgSK I8hXvaVOfqa5UcOJJiB00pj GDvs8P0 UVDrzXxugPJsMtGrxRK6fT4 vECnudhcnr9iglsfqYgf0cm 87uSTow7Z7rRQ0K2FnvzG5W GJvbGQg JxnqxXBZpB6eexmpe2wrvui oEjWuHBTtRFd6JMw8ZQAxzK kxTkNwYJ99SWD8ELLuwvKfY 2FsLWFs rYzfIrF8a8F2Kz2ML3STLhw kC4PMWZXZIJoppVG+PC90cj 72M1RlXnlmYvm9LUQrKAZ3v OE1rA5q LUWpAAzqr7S7iIX1Q0KwqaM hma1hm3djOFMsGBfkW66clR Dsf2F7KJXjdNJ2PBPmyAgkC iBzaG93 Oyc+FFLjqYxxl5GxPcloo5b er2bvaSr5CbliHRJpphQthW pmWSW8q6NgIy9kKCLybIJ6f PQ9pU7b KzEaTnM7EPwcF134WqOmsKS oIbeiL26nL7RiuRP+PHRyPj y8EBZvzSzyPT6nC8YkHHOzs mctbGVm oZmpNO8yDVMymrubIQZnqQ6 sBNIuP1d5VnJlOhR3UDrsB9 XeGYDrzqqyKj88qE8eTtQqL dA8DMhu T1DwjlU5CMKqgSQmWXkcFJA 0G24vq6J3BFWlRTFqNYI9uC A4zV8xtMmulejqpDEyqCmxj mVydGlj JMmnZMssO297XDOcgRojMsL vZGluZyBEYXRlOiAgMDYvMj IvMjAyMzwvdGQ+MOVxHSU9d WxlPSAn eFJtNYuvZa7hjGsmwCkrHB3 rIJSflqwtQLPgiR8hNVIheE LpxKfgIC7bFGHibdvls239T iAxMHB0 ZGNvtGHxL6AkeH1oJiSaWWE mNEKlP1HnhNZxRAexM489TC txJqR6HTXsjaZdS6FuNMAjx WduOiB0 n0P4Fw9Ls4XtqiwqX8YwkII hNuGiBkvhNFe4L3NvBrcrcH I+DG20UGOoJS80KVn1COU6j WxlPSdi PHJpP5GskN2mQbIlSUIrTQM kOyc+PHRhYmxlIHdpZHRoPS fiYWNiTuZdzQqxWE4tBa6xE GVyLWNv cBcwtQLgHrVhz1ihZYPlOGb rHD7kxWjyL8NtkQI7QPGex7 t4Hq95N03aL5PjcRO+PGNvb ZX2jJL8 cF6iPaJfKwQ7YTgbM143DaF opXNzMdygk4agg0igaZx0Jt U0OOUhzfBasEoaEXD8e1AcM e78J17r IHdpZHRoPSIxNSUiIHZhbGl zwc9nwP1dWq8+FOCmzYN7lY S8pR9lHjGoTvQ4QVabX007X nRvcCIv Bupbl3dea6wgjPv8GrUyWTX tkcYorSiwBDD8o1XpQw88C9 KwdGjwk1TiLuy5op99jXXoi 3K6hTG3 L9LuRFNcbisqoGYopQvjNX8 zXMEucmjhJEDdmT5vKIAkA9 i4ZwCbLzW5WHhkN9EdqpY7I GJvbGQg XOWrzLGXwH2uzqrdl4kpszz hUtGvNDVePMg7EQd3EGUzeA tkSmXlAYE4WxF9WKI2hCYhx Z0ofAbf pffeiM9oEjj+MVN0lSVznZN CBU4oHxobuEK+IPUrWSR6jE ufUNjzSRBrdK8pWUZxL7d8T iAwLjA1 UTmuN1WhadY3VHVgfUIzRBN tjMJGaG5tvdbaa7fziykrHa JlECXbGSr5YSy6YCMbkDnjX iBsZWZ0 BrA0IHA2oQRznP8keAkeimi inU5vLjx+DsgybJndFPW6GQ q4D4RtLqh6BIGqgPpoDW3sz GFkZGlu Tu6szSjtpIdwQS5nXTApwsl zp328VeEif4ztARQgeCQeJQ dpSBW0V68wr1Q9DCBqVHHeN PF3kTB5 qZ6hiTzdwnvuzFWewFgzxqD dlDbvPAtfGJliZ554QDNjcL vmIcTrFXa0K3WzChw5XKQuh SohGV9z mKTaCKbwUb2yxTlirSuuLF6 tPMRuenxeh576VfNcc3bhUD MczDEiZRvkQVX4I15tn2G3A CMwMDAw YDW6mRY3rN5zqTzfmolzdLS mdDsgdmVydGljYWwtYWxpZ2 30RWOtbRrlHfBmbEt4L9EoJ eq0PRAf iWqmGN7gqDDsDJquYz7vvEz xdUhgTR6uTAMhugqlj793Gf Pch0yuTVZvvBZyWFncQLO2K 47xy8R1 KYUxTWNmGJG7vWS0mI4eyFs nbjogbGVmdDsgdmVydGljYW ypSGirU929LRFpgMtnFiHug GllbnQg SHxoUNm1N8ElFpeueUC+PC9 8CQZiAA28oDNfpYHbb1cysL b4WqVnUEOaORY5mKjgVLypu 3JkZXIt P76kiZXxe1Y9NAMhzPblvFG wTfDknMV1uZ6pLHrixlekx1 crwvytAojot7hndm62qI29B 29sIHdp ZHRoPSIzMCUiIHZhbGlnbj0 riO9dAe3+UCQynDJ3pWJ1nB 3gYCHaZmX9OHwmH791OrIsy CIvPjxj g9ukk8hcrMm1UcK6KRAlbyU ikJoeHXH3i2YcSi79H95jDL dpZHRoPSIyMCUiIHZhbGlnb a9lkZ4x Ii8+PUOduEN0dNZ9vI4mZrP eCbE0HJzsA828NeTcwSZeEd lvH68gY4FopKW+QXQnEqz6D CBzdHls KY8qfZCgJFsbBh0zAZB5EkZ lCvRaCGzfO2PqAWRwbgorft ievHU7OWHnOFJfsV93Ob4pq DogMTBw yMGKgI2fcoiyn8qfszogLfH rOLFuNLj3ZRi8RUJufIzwIo CpVQM1KmJ4SQA0sJAqiV6tz Glnbjog oM9hT6SoAWMhvskeCw94qF0 oBnOzYpG1FPsqYgm+TUlMTE VSLCBTSEFXTkVMTEUgRTwvd GQ+PHRk MKR7eJceMWemEAIymT7jNPE nG4k8GrWgPhP8ZDyaF4YnDY LmdhmxGr11dS5fYtJmPkW3B WwrA7Bj spZ9EAIglRWiSAvlTPR0E63 bz2B4UBFzRURuWPV3aAS8xK 1hbGlnbjogbGVmdDsgdmVyd GljYWwt DSwaH002ASCmaFrnHlRwQcM oVxA9NCn7Q9UxPtg2ISMrzD llUD1zqKLzPFckNw1lzInll XmfBY1e VHLnernpSHNasF3bEAZbxDG pcTrlAJ3wAUVnzbubg644Hs NtTNG2SLVjeJHzE8JavN9pJ iAjMDAw BTUmJ7FnmZPiTZwlT193SPy vYaX1QRNanoRhB0LuLSTuwK iuLwN9k6H6Ya0pPIWLLILhs zwvdGQ+ JKJkBYO9hBedGItzEEWiwW8 iRQDnJ5w8ZyNcMaZ3XFegO6 XsRNCuoqalPa10gL5uCiLcH zD2FPcz T3PmcwS5AYElpMEoRFdrNRJ 2Q59lw1W7NEXmRASnJEU4jL K5cU6xkStyzysmxOCioAcdd mVydGlj KCdmEHgxQ812VLTcwRasRmS FTUFMRTwvdGQ+CVEwTRY7cN haPInmADXetS7jLWNmQ9j8R iAwLjA1 AKbmN0MnZSAyyilaOe56jZ4 iMvPpRwA8BOzeU5AriwX7UY SsfZCtTZaaSFL4Q78nw6F5V CMwMDAw HPZ7iBT7uP7taEwfxnyquGV mdDsgdmVydGljYWwtYWxpZ2 76SPYklLwmDs7CPY18AZ38Y 3RyPjwv dGFibGU+PHRhYmxlIHdpZHR dZVqwJGBqSeWixUsdQI6aSp 9yZGVyLWNvbGxhcHNlOiBjb 2xsYXBz TNnaWV1iuWgmM3DzkFO8DVZ xn1l6Jk12E78yA0OvcXT+PG KgyIH9nBV8fU2kRpPcOdF2K HjoP482 ApYhwZXqBgyjk0fpi8ilmUm 8LpDsGJQgbkBwuMbtOBR7f2 KkNa85M29sDMktDFIaPPVzS CUiIHZh cBqywu5rmO2tNi6+PGNvbCB 6nWE8nB9hJoFpYaK7EQyoW2 37JzLhzDFeExgfI43aK3Lyv XA+PHRy Vms1NWHenSrzNA1zpCQoOWm jLd0iSEY0HnIvEoRyATevY9 TbIATjxflysoamwNA5OCUtR DUwaW47 To9diDotVi8zHGTwDBV9WLR ezTBcY6TpqR8xCyIwCBNdKS HrE4AodAFxJNfdA833KKxcG tC0WFMk bxKvS0DcHROgnIidGvY1f6Y 5Hc3PvHmbyQExGN2gLdHlKU a6Q3NyYtc4PDKqhXgmLK8ja GFkZGlu Kr9itJqdtDreFG2cXTIhipd jo303OuJwh0lrWMLxjGPuOY jhMVC1V73ow5Z8VGUzCACbI IW2dTW4 mX1tdApmksbxkQXfjPilvuI rsXeiZDckGKexU765BAZkaD klReZNGnz1G3VsPtm4AYWkt FmzYL0d mUQbHBdhFp2wiZtnhHxqBF8 iUNRgnxpkg216IeQnp8puFV UnsNZwOHbkJSY0J66bi1C8B CMwMDAw MAV2dLA8wE5sgAydhwgmjOU mdDsgdmVydGljYWwtYWxpZ2 87HKVcxHbkWh1JRkl7O9KhK ar4GHAi hTzdFM1qoCOjKVqgAz6zjCr nnZosXG6rTOUrzqvab349Yn Wmn4hmKIOqpGLxMKstIHW3I 13wl6U0 XWScDBKbFRR9vUI1lQ2hfIf nbjogbGVmdDsgdmVydGljYW seNDbkS685JUPadJkpDaWjv WVyOjwv dGQ+QF10ey22A6QtRrmjOyg 7SWNjVRZ1lVR2bE4oOGYpCT zfs4D4kRQ8H9BysrMrwa1rx 2xsYXBz ZTo (more content not included)... [facility] Coding Summaryon 07-22-2022 Coding Summary HTMLBase 64 AtspnxhvVSo8iAf+PGhlYWQ +ST3SCCIkL43atDGgrB0bO0 NMTElOSywgQVBQTElOSyIgb iVhOV6atVSfCUGi IC8+LD5hTSWzJmnehIJuu5K 9yVI4A98qcy3zOLgiiRS7ZL HvPkSxgudsu9rijFl2FYlmA mluOyBt VAFizT47ENW3xA56Zj66uWD wsSEax3ufzWe9VvGbXYFyTA Y9lCkaOWndq9KqNRUwC98dx XUfk1V3 JYPynMlfwNUtPlTtkTF8yB5 gLTkoiyamp3pbpnhvEuk3lz 52sNXbz1S0bZE0V2ZskyO8W GJvbGQg CriwtJFAkX6kteuto8siark uIpRzGKRbBRv9ENh7WGHwlA xyZzLuWS14UNK0TBBrhaGiN 2FsLWFs qKxlYnR0h9Z5Dx4YE6SLNfv jE1GKMDCWVPzexFQ+PC90cj 82W4LbTuotYra1GFKbOZK7l UP6aD6x RFIuFNkba2E1sFD7H4FbvfM nke8zx6clSTZqYZlmA02vbP Zma8D6XELxoYJ7URCudGusK iBzaG93 Oyc+XJMztVrlq9GxDfmef7g uo6ubfGb1LufvVWRsdxZcoR wtVFK8r6ErUt9xHCKbhPN9n WC2bH6p ZoUgBuW2HBuaB675EnYdgUV cQcpjZ98kE3ZzrGJ+PHRyPj j2XNRofVwnTI0hS5VvZAKbc mctbGVm hGanBR0jCIByappzECGyxN7 uCCXxE1a8LhTuLaV8VIpqP5 YgSTCsceioGj12cY6hKkDbZ nR4QRrf S0RehsH4CMQqoQWfXWzlULF 8Q04qs8C2YRIaUSDzZGL9iJ D0kG0yfSqutitmwKJppNrjq mVydGlj ACidSIcoM299BPIjiBbfLfO vZGluZyBEYXRlOiAgMDYvMT QvMjAyMzwvdGQ+EUHpOLH2k WxlPSAn tHOsFRxfZu1ghVzjyUeqUJ0 gHJFeoaorNIMrkT7bAGCzbV XoxZwvEK3mCKSzyjerd167T iAxMHB0 LAJmbORyJ4HsiP5mJhHqQGJ zVKYtF0UbgBWzEWkoY767NT khLzU6KHLjcnLmJ2YoUTGwq WduOiB0 w8C3Ml4Su6VzskseC9GasOK gNiUkKjweSVk7S7HmItvabI I+JV07CJSdXG30LPw6YKV9f WxlPSdi GHAqB0QryC7jZfKyMEPlCWZ kOyc+PHRhYmxlIHdpZHRoPS odQNLoQxCvoSexBC7xHt8iW GVyLWNv aCwlwEAdUzRhs3idTIPnGEy xIT3klGdlE5UxoZK6QSHiv7 z9Pu14H87iH9HopMF+PGNvb YW5yRW7 cS4bGqBtLxZ2KDjqD557FfI tuPIrZillv9wwg6ftjVj8Zo R6TGMfebBxgAxoOAQ5n4XtL s32S21w IHdpZHRoPSIxNSUiIHZhbGl rwm0mxV7qOk6+JJQpjUX0jD Z8mD8oZhYbYcU2VJraN795S nRvcCIv Ypvok0pua7rxnXu5BkUeESL icdLwyHwwKWC5a6ThCe07G4 VlfMvjf1UiFdv5cb93xJKxm 7D6tHC2 M8NwJPWgysjioKDmuPftDL9 dGUMdomudTILewM2pTTSeX2 l2DeLdKyJ9VKytV2YvzuR9B GJvbGQg PJXykVGQaL3nemvle0trlox mMlPrUKAmGUk8MFo5ULZjwW zmDoShADT3XeD4CUC9wAYsz X8sjOss nfktdE6lCqt+MLS8pJYvfBN ITA5zEisfeLK+OQFsYMS5lE pfYHzvOFZwfF3dDJUvO7a2T iAwLjA1 MQwyL0KvmpH7URDczBTeWSA nqRAZtL7jbnkww5ccasaqIz DyJXNvTPv9SAz6GSYntOrnQ iBsZWZ0 OhA9UOI1bWRkpC1geLgmbyv szE4yQzy+WzpcuJqhTMB2EV o5N6YdYle4XTOepExdSW7we GFkZGlu Zs9pmBxjvXrkBR2hXHKljwj sf967RoSuh7ebCYEbhDWtTP hsXPO6R48kz3A4XDNhHBZqE JZ1dVK5 yL4jxXaebxrbkKMogYdgvwT fhDyaREzvMBrmY882XSAaoV ucKfYeIRm3Q7GuUdk5IBRur SriUQ3d qVDnNLrxCr8yyLdbsIkcCL1 nIBWggivnt932IrWzb6nzGN CysWUtZVyfLPZ3W44ce4C2S CMwMDAw DUA2kHV8dU8zpSvxopqleQU mdDsgdmVydGljYWwtYWxpZ2 07HFNmwFwqFaXccDt7T9XzG ei8SZQg lIuwWF9ocLVdDAqkCc3xvNb byZgsWQ2zLXYofiojh362Ge Vhe1zhVDKwbWTkZUyuUQB4E 22cs5T8 VQQyZMJsDOS5gAX3jJ4kcVl nbjogbGVmdDsgdmVydGljYW ftZPoeS133VBEvwUcmMcLlg GllbnQg ZNmxJLt5N0DsUzqrhHE+PC9 7CJVmNF89aIRhgXQrm6ggvB c0IeWiXIDeEWK2gMrbEFzbc 3JkZXIt K99zcTVkg9G9ADRsgRkstMY pYaLmeEU9zU5mHHbgdlqoy8 ioiiuaSsomj5lzqy51oQ49M 29sIHdp ZHRoPSIzMCUiIHZhbGlnbj0 peQ6zLz8+TORpfHI9mEB4lR 0tGIItYqT1RAyvA066OyYng CIvPjxj y9mni1xksBt4RvM9MROnllA xnRevQSF5i0DoBu27E06qIM dpZHRoPSIyMCUiIHZhbGlnb e1rpO4q Ii8+DIEmxRS4uNR4mN7fZzR xOcP4JLpaA180EtYtcIHoIu rjH50bV5WeiNI+FCMwAwt5O CBzdHls FY5jhSLkVQkpGg6mHSR1WiL vBjSmNHbgD7PlBEEhnggvdr qgaLV3JQWeNCVkbX36Ar2ei DogMTBw jIJNdD9jetlcu6ikmsjiAfX lRRPlURm0GPk0VTNthLflWl YhGOX0BzI1JAC8tWVfoS9se Glnbjog vG3uJ4ZlXOVcwdbbLv99yR3 zErPoViR5HFvvPdi+TUlMTE VSLCBTSEFXTkVMTEUgRTwvd GQ+PHRk AXN1sFgfFScbZXYpiE7mPHV bK5a7HcLxAuM3XYmeE4OoUZ HtimgaNn77hZ8gQbJpMfE4Z QoxB5Ld ncD0VDIgbYLcAYmbROS8Z07 aa7O8DBDrQARbEJY2oHU7bY 1hbGlnbjogbGVmdDsgdmVyd GljYWwt JZqoG377QBIuyVubAwDeTqC cRdU6RLy3I9WeZmc9XSXptQ tpFQ4tjFAkZNpyVz4jqCzii BpqZX5z HQNksqitTUGjwK0oYLZtrEL xqGcbMZ7nKWEnczrna920Su JqDEC0GMVxzCEcH4FimQ5vS iAjMDAw WBTuU1XcdXDmHJutN628OSb ySxI0TQAzhhQyW2ZsDOHivV kmTaF9l8M0Op8zMEBTPJOzs zwvdGQ+ VKVzUGA7zYwyWNmpCMYjrG9 mHZNqP4y3NqVqCmH9FJceR5 PlUSSlfnapKe60wP6xVhXqC aC1UZth B2ZbfhF6NNMldGFmBZhrDBU 4M55ux4F1FMGyFXDcDFT7aA X9uM0gbGfsuxfpoFBnqEcon mVydGlj TOrcHLhfU070OAIcuPucDzG FTUFMRTwvdGQ+LXPkAFR7rB auNZcsLDEeyP1wBLDdV4d5Z iAwLjA1 VXcmW6WqLLHkttltEw27fY6 gDlTeYfQ6KPmcJ1CmeqR8RN AoiKDsZRckBGK7B49ms3X3U CMwMDAw KNY0sBK0oJ7jnYemnmbvrXR mdDsgdmVydGljYWwtYWxpZ2 28JYKxxBuqJv5GET74WQ04Z 3RyPjwv dGFibGU+PHRhYmxlIHdpZHR tNPcuNSQjBgJcrWknGQ2pOe 9yZGVyLWNvbGxhcHNlOiBjb 2xsYXBz SOluBN2lrHqhA6ZxqAU7BYG nn1t4Rz27Z92xY1QhrPY+PG TtbZM7cTT6sI1oGhEeKjD3B FlyV693 IvXjeYVrBraif8usv8kcfCb 0OfOjMWYwajPplQpqFFO6j3 QyXw86O51oLQloOJJlGOZtR CUiIHZh nBuwuh8yzW4aIu2+PGNvbCB 7gON9zK9tZhXlJzL2HMmqH0 97TfNbmKVzTnduB20oF1Aoh XA+PHRy Wjv5CODwlUboXY0poPOgWDa zLr5rVRK7TtXjEfDdTAkoE0 CeINImoamlyrbsyIE1QBSkT DUwaW47 Gj3pmXgrPr7tQHYmNRF6LLX aoXNxF8ZswN3bHeTsPMVcTJ XuI0OydNJxNRpjC270LYfcK mO7QASs fnQfV8GfEADrnKvcHpC9r1E 4Wx3UuSnjeSSgBY6pBvIzJQ o0O8LkZjs0PLCnsCuqMX2pe GFkZGlu Lh1osPsuvPiyYG2iQTWewjy fn167XlFkk1xgLNLodWZqRS afLUY2D66zz7Q0BVWhROFgN SJ6hUD3 oC4wmQdxknogqAWhiPvzvgC axNkaGVkwSTzfT140GHKdaD lkHyKCHhd9A1XeGzv7OZUta RbbTJ4g dPUdYWyxFc3tgZnpoVvrUX2 kYLCrzpjjq268AaYjy6jxTE JofERkRFkpOBT7C84da7Q2Z CMwMDAw ZMB4zMA9sJ9dnRsqnbcenOM mdDsgdmVydGljYWwtYWxpZ2 21UMAbhHnpBg1HNyg1X6LjX nk7HNFy uCxiNV0xkCSmBAinOy6wfBy pdBblNB8kROGajabyr566Mb Hyk1trNUMaaYTpSSduFPH7X 14km3B2 EIPsUVOdESK0kEE2sZ4xuYc nbjogbGVmdDsgdmVydGljYW ocVYfvS427ZKPwxHmqYoWlu WVyOjwv dGQ+UE19oq73R5DdGoftHya 1ZDBiHBU2iSH2hN6vTCGmFP bny0B4wCH7P8SixdIbny1wp 2xsYXBz ZTo (more content not included)... [facility] Consent Formson 07-16-2022 Consent Forms [id number] TGTIFF [facility] Abner 07-15-2022 L --- Specimen: [id number] Received: 07/15/22 Status: SALIMA Kilpatrick Num: [id number] Spec Type: Surgical Subm Dr: Trevon Pruitt MD Tissues: A BREAST CORE NO CALCS (LT BREAST BX) Procedures: HE/3, Gross/Micro L4, CK5 6, ER, p63 Age/ Patient Sex Location Account Attending Physician Sushil Salasyolanda Espinosa 37/F [facility] [id number] Trevon Pruitt MD SPEC NUM: [id number] RECD: 07/15/22 STATUS: SALIMA KILPATRICK NUM: [id number] CRISTINA: 07/15/22 [facility] DR: Trevon Pruitt MD ENTERED: 07/15/[address] [facility] DR: Vitaly,Lab SPEC TYPE: Surgical DEPT: MAG [...] Time: 0 Formalin Fixation Time: 9.42 Specimen: [id number] Received: 07/15/22 Status: SALIMA Kilpatrick Num: [id number] Spec Type: Surgical Subm Dr: Trevon Pruitt MD Tissues: A BREAST CORE NO CALCS (LT BREAST BX) Procedures: HE/3, Gross/Micro L4, CK5 6, ER, p63 Patient: Ariel Salas [id number] (Continued) Specimen: [id number] Received: 07/15/22 (Continued) Signed (signature on file) Mary Jeffers MD 07/17/22 1057 Specimen: [id number] Received: 07/15/22 Status: SALIMA Kilpatrick Num: [id number] Spec Type: Surgical Subm Dr: Trevon Pruitt MD Tissues: A BREAST CORE NO CALCS (LT BREAST BX) Procedures: HE/3, Gross/Micro L4, CK5 6, ER, p63 Patient: Ariel Salas [id number] (Continued) Specimen: [id number] Received: 07/15/22-1309 (Continued) Microscopic Description Two H E slides reviewed. The microscopic examination confirms the diagnosis. Immunostains for ER p53 and cytokeratin 5/6 are performed with adequate controls immunohistochemical and microscopic patents confirms the above diagnosis. Intradepartmental consultation with a second pathologist (JERRI) who agrees with the diagnosis. CPT Codes 70757, 18150, [id number] Specimen: [id number] Received: 07/15/22-130 Status: SALIMA Kilpatrick Num: [id number] Spec Type: Surgical Subm Dr: Trevon Pruitt MD Tissues: A BREAST CORE NO CALCS (LT BREAST BX) Procedures: HE/3, Gross/Micro L4, CK5 6, ER, p63 Patient: JosueFelicianodylon Espinosa [id number] (Continued) Signed (signature on file) Mary Jeffers MD 07/17/22 1057 [facility] [place] Mammogram Diagnostic Left .on 07-15-2022 [...] for marker placement Recommendation: No recommendation required [facility] Comment on above: Order Comment: Check clip placement Outside Recordson 07-15-2022 Outside Records [id number]#[id number] [facility] US Breast Biopsy Loc [facility] [address] Leson 07-15-2022 US Breast Biopsy Loc [facility] 1st Les Left breast ultrasound was performed during Dr. Pruitt's left breast biopsy. Please see Dr. Pruitt's surgical notes for completeness. Final Signed (Electronic Signature): Fam Worthy MD 07/17/22 10:30 a Technologist: [facility] Comment on above: Order Comment: Breas t mass at 6 o'clock position left breast Coding Summaryon 07-10-2022 Coding Summary HTMLBase 64 YpbvmfmaEHo7qKt+PGhlYWQ +[id number] NMTElOSywgQVBQTElOSyIgb xGiCH9ndAHvRHLd IC8+RC8aJCWoAtkbyUEcy4I 1zLZ8C12kxl7uSAnklGW4ES RoNpGkcghur8aqhMu8ZHedW mluOyBt YWZhrP76UQZ8dV12Uw50bFS aaABui1dvmAw8LeHmXQVcCB V9iXgePKhne6JeXFFzE12yn OOuw4A1 KOKjbMwpaHYgCnYouZD9dK8 kEKcbsuamy1udollwAtj4vp 48rJDbl1Q1vDG9A6PahvX4T GJvbGQg WqfnzWIVnY5fxsqll2rryff uWrUgWYObNOo9ELc6POXcyL wnWpUkEA26FCQ0XVMynvPdU 2FsLWFs rCznLmC7a3P0Wc5JY3DITfw cZ1JJVDDAIRcpmBF+PC90cj 76Z2DqHkdsFiu5ZGSsVII7q LS0dO4k UHEdAGqxn8V2wSS4F0PgveU tqa6xq3jsNOJeQOqwC30sjF Uyc7P2PVDhbTS3NMVllFqyW iBzaG93 Oyc+MDSqnDirz1XaXddop5h li5usxGa0GtjqOXPshxCfsE pdNLG0q1AzBc5nVWZakYL1r ZV2bN4i StMmDnM0LMubN612CiNmlMV bYuetQ75yS1NxdDK+PHRyPj a1OMRqhYtqXE8sN9ItTGTzz mctbGVm gGmrTS3pMWQjoqviQAAvvG4 mLFLcK1b6PcVmCqO1BFjoG0 FtGNTjvuwhSd38lO9sTmHyE xM0OJxv A2BsleL5KCBriLLkQSzhPHC 7V08rs1O5FEZsYUNkSYY9qH P6zH7lbPpjrswetZWbgSuee mVydGlj PLefLEhwG112FCEmtPfmRwI vZGluZyBEYXRlOiAgMDYvMD IvMjAyMzwvdGQ+CVYeELU8t WxlPSAn eDRyAMtsAd9shEzfuCauBO4 mKOAuwtgpLALlvG0hLJNmaQ QizNrkQA3gOQTmgqjma487E iAxMHB0 UBNzkWPvW0DqhW3tYkRmHHW lRWKfV9KutICrJGyzL502VB tkUxA4TXLmfyXcN2ZuXSWlv WduOiB0 h2O8Gb3Wd7QgfhvsS5KomGN pZbIoXlleMKh7D5TxBtnbvB I+ZX84FZGuKB55GFi7TOE7w WxlPSdi BXKpE3OacM2xVnDzSCMbVPM kOyc+PHRhYmxlIHdpZHRoPS hsMWNtQuNomNhkFJ0kJu1qA GVyLWNv gOasjCWgLyHjp5mkXTHoCUn vFM7kbKjiJ3XaxFW4PAOwz9 j7Be24D44pQ8KujFN+PGNvb XY8xSX9 yQ0bCmVtGjV2YRblL626JqG kbBHsNfwot3ggt6ruoXd9Fv Q4LVMbmlJqbDksVDS0a2DhB g74Y58v IHdpZHRoPSIxNSUiIHZhbGl lib8udS5kCe8+CPNwmQH3cK W9iO1nJtQfPvD2XJwhJ837V nRvcCIv Fgkqc6hke2xgwKv3DmPpIGP itpRuuFqnIQG9l4JlRq74H3 CdoEcpc0AlQsg6mh15bOSdb 7B8cQR9 D1QiMNFlogkyqUWlmTftYF1 jSCXeamkvENJfsE9uJKPpT3 j7SqReXeK5YTghG8LrnaR5O GJvbGQg IIQkjCFPoC0lkfwtd9buxyf hNgKvLADpZAc0ALu7XVUvyT dkPjUyYGZ0VqN5CXR6pJYrj G3cwDbo wpdzrW7fNao+BWC1oVNtbRD LDG8eDppmiWL+XKUoJHH6wB lbLNnlIPYvnN7zBWCmI9y7O iAwLjA1 ZNsrI5YvoaP1WBBjqZGoGHL kxSJJhN9eacenc4pwepsbXe AoGSMqFBj4VFe2DVOnxNffB iBsZWZ0 JpX5JZN4aZWlhT8ufGkzfli rlW3gIig+IurpyKzcUZZ8ID g8Z7NuAcf2IUNgsRghWK9oa GFkZGlu Qg6ttOnocDaqCG9bQAPtqkr so082YcVwd9sdRLHgoSXmGW wbLUD5C47cd7L8NOLlQHKtO BK4fJM7 aT7foCtuecbahPAvyVjfiuI jgKpmTMucQFamX961SECahB nwOoGgROi0G4PeMvb3DLYbt ApeYP4g sHNwWSdzXx5qtXiydXytHZ0 fJIPcyajmt826NoHxm7ewLZ ZglLGsLCgjYOB0O79ym3Z3M CMwMDAw KYG9mNY1cP9usDzmmbpflLD mdDsgdmVydGljYWwtYWxpZ2 21WOWauMyqBcRjrAk1X4WfX je4PIXy hWltIR1vkGCtBJbzPt5enNf hcHzqVC8sWBPipwwdw099Ci Kzy5qnYTHmrVByJWuaBOY0A 54rv8E7 VPIeFRNsUUI5xOL3kR5nyIw nbjogbGVmdDsgdmVydGljYW klAIcmQ438OUVzvFttKbCrm GllbnQg UAikWHj1F3JuZyqppSO+PC9 2GLNmEA69yHVyzDDxi1lxbH t4FpIjJJXwPOX8rEyuHFfod 3JkZXIt A34buSSlj6F1RTGycNnhwTA sSyUbyXE6hW4pLMjxjmslp9 hblekdYomwj3ewov72zJ11M 29sIHdp ZHRoPSIzMCUiIHZhbGlnbj0 nrW7bKp9+CLRqhTR0nZY2qH 0sAUWuZeX8PFxoL567CzYhs CIvPjxj n8pby0mhfOx0SbA3QFYdzoF rtEecIXS0k8PwLn08Z83rLN dpZHRoPSIyMCUiIHZhbGlnb n9jtR3c Ii8+BUSttWE8dGQ9iP0zPjW pPiH3XPsoH924NeJviIPgIf eeJ01hI1AbtEU+LCGnWnp7U CBzdHls VN3ucWIuCZpuEq1sWVQ0CuM yWiMnOMztO4LcMHHhoexqck aowVG0AELhHUHxfM19Tt3zm DogMTBw rOVHiB1rbdtbp8mdfrujFfO hXFSjCQg2VVe0QUCihYbbHe NgBTQ1IpP3VFS2mDVxeN4rf Glnbjog zY7yO6GyFQHolmsxCt68fP8 oXaGsOfU2BTglYsa+TUlMTE VSLCBTSEFXTkVMTEUgRTwvd GQ+PHRk ENE7oXpsQZcaLZQtuF1nDVH wE4u3GyVhHcG8GEteN6FnVY JdpmsnFn90fE1nUpEnElR4C KrgM5Jb kcC5CVRloRQmUXvtXYI2K40 ct4Z5LXReVXYuKGY5vYV8aC 1hbGlnbjogbGVmdDsgdmVyd GljYWwt TDhoD511DYOwxJbjLuTaJkX sYsI4LAl6X5XoRhj8OCPupK jpOX1qwVVpRFqhEd5yoMiim QhbVT8w MAUzptvkSSLkyZ4xZZVqnOY pxLmyTO8cKMKrkjtbe954Dh JhMOW7DWUnkATuT4BraE5jZ iAjMDAw YVJmX3GwyNQgSJoqU120CAt ySzE6FWAhxzQtT7ByTZTsfV kiWcU8n4G8Wp2pYZGNVOTgs zwvdGQ+ SITnUPG2qGuiHElzOAOdpN3 oPBWbY4e0JiLmRxV9RJxeU6 HcRNQabvrxFy98wZ2yQhClP rH2LMrz N6VhqmS9CAYxlFRzGGolWUY 5O23uq6N2YNJxPHTmSMI0qD R8nE2pfCtfxrnmiKGmkKmea mVydGlj AOwaUTstN571DWJbnLojQeM FTUFMRTwvdGQ+ICVgTSU6hP leEIypWMBgwI2xBRLnA8g8H iAwLjA1 IIxoK8IzSXSfldilKm21uR9 aTrDdPaM6FOikS8PlnqQ1XZ EucMXmVIbtUGU3Q87zo6C2B CMwMDAw SUE2yMO6cR4eeScjvnozkOX mdDsgdmVydGljYWwtYWxpZ2 41EQQzzOroKy1SYP70JW04L 3RyPjwv dGFibGU+PHRhYmxlIHdpZHR eWMcgUXCnUwQobFrnXZ1uTq 9yZGVyLWNvbGxhcHNlOiBjb 2xsYXBz OKplPT1ozVzlU3ZxuKE7GWY rm9s7Cv52A43eF2PlpDP+PG QzuDD9oTV3zA6dQcVmRkS2L RypO243 SyVgkYNbJfevk3ubs8wcbDp 9RwCiFKMjzcNhvPjrLAZ8v4 VdVt26V24bWKdqHPUdHMVfI CUiIHZh tAvnyw9caG2sHa4+PGNvbCB 3vCH1gL5mIhZkMlR1FMyxY3 47VlXisOErHdymA41jC7Whl XA+PHRy Apk3QZOotAhnWB9ubFIxRWn iSa0nPUI7UwPfDsLqYPaqF1 ZeLVDmzumvkijhiAY4HJYtR DUwaW47 Td9csKowKc8jWBNfGNE4EFI uaDFrE2RvtZ5oSjGsKHGzNW EaM4HfcMThRYrcS625KUdiJ yZ5HGJk cnRkX5StBHDxoXrsUkE5b0K 0Uw3NuTuzeSPoDE4aCbOxTS g7R1MvQct6DYXwkJrzRY8qm GFkZGlu Ym1yzMtkcUxnHY8aXDWhphs ys883NaEud2eqKUZnlMRvLS zgYSG7H25wj5S2SVNhGGYlH MS6dMJ0 nV9unZpabutvgAVcbEnqzpK tuNejAGmjQVkoS809BJExvV rtLnUYEhx2I9SaUjf4KGTio IkrTW4r iXKpJBhiGb5vaOgjaShoYU5 zKYXmlshgr874TeDrm1lyTR EgjDBqCSyqSYG6E49wx0E6F CMwMDAw PQI8qAP5eT3exRdjlqziqWF mdDsgdmVydGljYWwtYWxpZ2 11WNAecDqcVv5PXyu0Z1ItZ hx6QGNy rUapFR2vpBJlAEzkYg1cgRu fpXslSL5vBCWqucfjn000Sy Vxj8oiSWPofCOqVGlrVDF0D 93dq5S4 NRVdBAToIZB2tAM5sP8udDy nbjogbGVmdDsgdmVydGljYW izLBulW057EMWacMgiOaHlc WVyOjwv dGQ+BK90sv80M4KoHbzqEqv 9PAGeTGX6yJT6lT7bVDTwHR dlr9R5sRJ3W6BnbeBkmu4qo 2xsYXBz ZTo (more content not included)... [facility] Coding Summaryon 07-02-2022 Coding Summary HTMLBase 64 YxichyzcZRk3aRg+PGhlYWQ +KT9IDDQnL88ttYTvaK5oF1 NMTElOSywgQVBQTElOSyIgb cTdFV6lvFGwCABw IC8+QS1hXNDlWwlxtLYko9K 0oEY7G91rqw6hUJihjPC3XE WuHpOianoxb4hscCs6UPlcC mluOyBt TIOvxC58JZZ7lI14Aq78vLN mzJRpc0oolWd7TiSzFJOqAF V3jUxfRUmtg6IaZSKeO33nx LMfs5M1 HXYpzGuhxYKoJoKziHO3uJ3 bMRkbaxlhi5eiqummNxh7kb 15rBRli5W0gMZ3E2TbnqN2T GJvbGQg GqmtfIJGaS3xkravx9yctzm vQjCiCSIxSDx4BDx9SFAfcQ uxZfVaVO19JBG5QPUgkeQmY 2FsLWFs wJvhPkB7g5N4Ge0SN4XBOpm vL0CBBVBYDFakrOQ+PC90cj 38S8QqHydsYdj1WNUpJRQ2h VN9kI8t GGAjAGxib6R0rHZ5P6HmzoM fgx4ke6ovCDVmTEdaW29aaU Lvd5E1NLPxvXE1GPEoeNhgU iBzaG93 Oyc+MRJpmFfln4ShGvmij0x lj3wnxTz6WmgyQVTpwfNnwI xkQUQ2g7UdKp0kTAYpzLW5o LI0tG9q JrSxWwG8NAmbQ403IqHxlSH tSwqvJ99mP2QwnAH+PHRyPj x7KDImbMggIJ2lB0BzMBOmt mctbGVm jVqpRL8qAMYuqoxgZQAzrX0 cMMRyN0g6HeRbWcL6VRrvM8 WrLPCpqwypWl54wF4kRtRfJ vZ5NMcq P1MygcP7OTLziIMrOEbvYKG 6K76yf0J9IEGbWSTiQHA2xZ F1oK6ghSvfgifhxGKztNbon mVydGlj ZRpkMUkrO157RJZgwZqoNaL vZGluZyBEYXRlOiAgMDUvMj UvMjAyMzwvdGQ+LGGjLNW4r WxlPSAn zSRxPAibZr8yhItklCjgSD4 hFUUmmezwAXFdsH5pKNLegJ ApyGpiIT9jUVEdqvyni626G iAxMHB0 CFOqwEQgU0YplD9mZaQxZIA sJCSwT1VlqHGzPBbgF503VC gyOiO4EOCecrDsO6ZyAKSkr WduOiB0 h6C5Qy4Dn4WmggkeW0KxxCH uDpVjNmnnFRi8C3RyNcnnuT I+OE64ZTFtKA47FIp2VUA5c WxlPSdi YCNcF1FrqV3dNoEvBXHtHJM kOyc+PHRhYmxlIHdpZHRoPS zcSARgEbRynUhxUG7aFz1hC GVyLWNv oIbisCAtDrDje2jmBEUkRZb oXQ8oqRraU8XqeLX6GDUsc4 g5Kc02D61jX4WlzXN+PGNvb EE8wGK4 cH7mGvKfGfK1MPctR561RfL mxTUaWwcft7ckz9aqcSw5Hi Z4KSLcghPnrRlpUYK1t9NtK w96G14t IHdpZHRoPSIxNSUiIHZhbGl fxx3vkW3yUi6+GARihNP6wX W3tQ1iQlYsOfJ5EVnlE120X nRvcCIv Hpqvv5nwl6bvsWu9YqDfPQO ppwAprKgxHLA9l1LkNy29E1 FaoLzzp6VzLrl2ov68uFNuy 9B7lHK6 N4IuENTykgygsLBjqMlfTJ7 hJWImehcpSCHmoE5sGTGfJ7 n8AsNwGrS4RRexI3LcdeR4H GJvbGQg IWEoaETPsS0igakym7yjzse wUmZpYAJnMPc4TFi0NFHmxP giMhQxWOW7TgY5UAS9wGAny P5klJep iesphD4cRgi+NJP4uFXukXK LMU1kMdgeqXN+JVLhSHR5nR rnKBbdHBWhrI4fXGWnI9x6P iAwLjA1 FIiiE8GbskZ7APTjbUJfIRH fkHIZsK0wllncl8sicptlZv AuHZAhRUt2IVl4UNQbkQmtZ iBsZWZ0 TiT2ARS0lNFuzR9vmWvvxat jhB9vDnr+UtwmoFeqDFP6SB o3X6CgSht5FGUjbJdtLR5vx GFkZGlu Ad8isUywbHiwQE6mHDAhqkw ve685AwUdk0hsULMsjMKpJH hoGZE1B37jh5H3GGWdXKOcV PX5mOF6 nY4jkDkqpyphuBVlyEdqlzF pcQitJQcpCOiwE032VKNpvS wfWoLaAQp5C7OaWap0AGDyx GedBB5z rFMtBPauHj8ogSpdkTnuDP4 sJJNcswnjl810VqOnn1ybBF GkkBXgTXijDSG3B80iz0T7F CMwMDAw IQB8cZV0yF5nkOdlyrujwPR mdDsgdmVydGljYWwtYWxpZ2 87LOZimAwcQqQdyVk0V2NiZ mf1SJXv oQldMS4fqLDcQFdlJi8jgPf npWuiJA0nBPTyryvtj621Bb Igs0sfDPMahEIiQOmvKLS8V 49jv8T9 JTBtLSZnPFX0cSF3zB7rxEv nbjogbGVmdDsgdmVydGljYW wrGKmpU653IXThqSerChFtf GllbnQg NLqzXXu8K9VmTzbozTW+PC9 0GKImLW69hPVssSEwz7duxX s5WqDlIENqNHV2fIxkQUpar 3JkZXIt F14obRYxj1C9PYPnrAozjGD dXlTfzHD5pV0wVMesvhpyp0 yfekvxZmotm2sfom03cR30B 29sIHdp ZHRoPSIzMCUiIHZhbGlnbj0 oqC8hXs4+CZWriHY1jCB1fX 7yWGYaWnY5ERqiF356ZwGds CIvPjxj y4vmr6kjrMp2SoO0QZBqkkQ ehVuwFVX2j7KmBk97X98iPE dpZHRoPSIyMCUiIHZhbGlnb g2vrD4b Ii8+CVIorLV9dPX6nN6gGcA bVxR2ZZsjH047KbVuoEOzOx jwQ38zN6MkzWI+NDMnXlz4U CBzdHls RB3buACoDRhmXi6jOBP9XtF lVaSlLMpvL0SyMUPwfmrmgu vrqDR9LLCwONNdyI57Vg9rf DogMTBw lUXJzL3dxqzug3stytfaQbY dPSOzYYf8XNq4PIKovLxzXy QvPUD8FuD6EBG3yBIojX4sd Glnbjog oY9mI3CdLSGwvckcVc28pC4 xNqDxHpY5RNpoEau+TUlMTE VSLCBTSEFXTkVMTEUgRTwvd GQ+PHRk PHD7aErfUDlaVSZdxS8hALB mV5i2KtXjPbK7NWbcY0GnZH RwseyqCq05rY1zCgMcUkN7P XqyV6Yl qvR4ENHusJEjAQjsMPQ6T03 wf2W7FCFqREHoOFM9wSC3dM 1hbGlnbjogbGVmdDsgdmVyd GljYWwt SXqbI958KEVizLccCqAbVlZ sFqL8HYy6F1AdVyh0CLQwzU hgWT5juQKmKZpjZf3gsZlwc HahTE6f IBGgeicoDPKnoU0wDEJlwNZ nuLyuMC7qAOPydgqjc037Xz LeHTF0NJXauRXbH6WjzJ8dZ iAjMDAw VTThR2YedTBsLPjvM940HXl uGhM8BEBepgCzE8ElXJHiaW coDbK6c7S2Jm3nMHEQZZZjo zwvdGQ+ GVKtRCP6lKkuVMhlTRDfxB0 bIUEgX9r1VvVrHcP8DYymW3 KtMSPgtxneQe19sE4jCjPhV kV0MZwl P1FleeQ4EYVhsYIrQUaoRXA 6A45ys0B5MJFrURUpSSG1tT I0kR4hyZorcmwdwRKirKvpz mVydGlj XJruUTlnS331TFBthInhGhV FTUFMRTwvdGQ+UXSiVRO4oK cnLCqnRNQyxL2cLGNaV7x5S iAwLjA1 XHarM6XnBKNejmzwHa33tV5 jFiDjBuD4VQtpH3IubpA3ER VryXJfFJqmWTM2G19bm6F8Z CMwMDAw NAY1yBM9wG0wsPjackucdKM mdDsgdmVydGljYWwtYWxpZ2 84EJEajZliTm4VWH24LS54L 3RyPjwv dGFibGU+PHRhYmxlIHdpZHR pVOotCECfQrNarIsvLJ3rPp 9yZGVyLWNvbGxhcHNlOiBjb 2xsYXBz XYzsFM4ahGcsI4KzrKD9VKX yf6s5Wf31A42eR1NlbWS+PG BxsXW4mKG5vT2vAoCwSxW1A TqyI040 FtRkwSIgIotnf3elu3rdrIh 1GcQpITWydrMubYhwRQT3c2 LzWe08G80xANueTUWdNXTxI CUiIHZh lDqsid2nqB9oPx0+PGNvbCB 0zZL2yB2hRaEbWrD3UMceS9 80AgWvpRWhXjhzF17aZ9Agj XA+PHRy Lng0TPFglSmoMU4feFOkRJs bJo8wPJD7WdDiDbPzGKxyE4 HtGZMvfljmsdnibOM4LSWpV DUwaW47 Iv2znIioWo8uSXLxJDV3ZST flLTvL6RxqX0mOqVyQYOsOQ YxL4PtoGIyJSanE952CHotI vO7INIo duTxQ1EmRITaqEhpCpZ4l9K 8Hj0FrZdqoHAcOL3bHbCrVY m5F4PiQgp2CHZsuKsaGU2fy GFkZGlu Kt0iaFsfkYcdDV9uSYOcaxl re113PrZgf6mhAYJfbIUoSC osNTZ7U50vr5A1WVEyUPMvF PG3yXX3 jQ9ibOqkjegubSApuSexglB ppKwiTDugQAlwD825PDRlyQ orYySBJhk0D1OcCta1GKVxp JluVA3d nQMyDDqfRr8mlUqvfKuvFK4 vLTUumjpzw541AsZbk1haTE DekXMyJHjhCNE1C59rq1P6U CMwMDAw JWN6aAM8rR9lrLeyuicnyCK mdDsgdmVydGljYWwtYWxpZ2 02EBGniHxvFo8KUam2X6ZuX iq0ZHUi cComLM7yuPGtKCywIe8uuHq sxGbyKT1aZVWcyazvm267Uf Cxm3sgKTMjiKJwIVcjDYT9Z 08ux1Q6 QIMyZIPgLAA8nLK9jY0oaMn nbjogbGVmdDsgdmVydGljYW xhIEdkZ292TXXkxAgjPyCjo WVyOjwv dGQ+JC55pr69V5RdQducItc 8AMJtCNR0eTL3pL9pUFXqTH wjb1F9tSE7G9PepoOrih1tw 2xsYXBz ZTo (more content not included)... [facility] Coding Summaryon 06-30-2022 Coding Summary HTMLBase 64 DiusecmoVMs0gEw+PGhlYWQ +WW2WNZNsW79mzFJiyL3kV5 NMTElOSywgQVBQTElOSyIgb lEaQQ8elXVvCIKm IC8+MP7tAITaQyeekVRaz9E 4jXM5G15mgt0vUVuzcKG2EI ZqFaRxfiyyf0ckmXi4RZmjQ mluOyBt TXPugI22QNB0bQ63Sq09sDR quTNmm8yuxIp1OdVtOVXkQF V4kEngFCslw7OlQRYuM57eh IKpl7I2 RQFjlCpedGPjMiHtnHB4lA8 qREloyepgn6jpkqssPuq3pk 37qACri2H2oAV7P5SwlvQ6K GJvbGQg WdrplHBOrL5cmgeny1xzwal kNwTzXELdKHy6LZq7CLNokQ edTbApTM59WYW6WSJskeWiR 2FsLWFs iApzXdF4o0U9Go6JZ5QKIqz nS8ZQNHQHWCbtkBI+PC90cj 97F9GzEfsiWze2RTFdTCN7n WQ9eY2x WUGnRWatw9R4mZF1J1PjthF lyc7qr0xtSGImENlpN60giC Pcg0L2KIXgaAY3FQMsqPfyO iBzaG93 Oyc+TNRpcXtss9FsSsblr3v hv6gppDr7HkldTBWjuzQlnO twAIN1s6ZzIq9qGVDmqPL0b ES9mS0k XeXzPgL2NNovE760ZtCniAN rZxvgK26hL1DxbGO+PHRyPj t5CUExuDqnNO7qE1NcAQHgu mctbGVm oDmuOL1xOXFdpmdaRIMboV1 sXOTyR0e3LtBxTtT4NBgiJ0 IgKDVuknwpNs28wE6eSyStC uI7LXnt F6MjnkZ3ZLDjvRIlTCcpXXY 6R90uq6S1NRRzJRSgQXO0hK M3fG0rsFdppsrvjHDxmSwip mVydGlj DTbxBAveX605TNEjgAihLdT vZGluZyBEYXRlOiAgMDUvMj MvMjAyMzwvdGQ+YGFhCZS5e WxlPSAn hQQgGPmhQu7cjUfapPgtZE4 gDDGuclxtMXBypO7hIPYheW VolDowIP6xHWGuegzhn422T iAxMHB0 MEOxiMMxJ7PprB3iDjMiPSF lMEVmK7QeqXTbPOcfT477OQ nuChH7NAOaadLtU3RqPSHyf WduOiB0 k8U9Kr8Ym5IhhxzrS5NkhRX oOeKmDyiyEPu1T9HiVivgcO I+GC96DRMoNB95QUh3DTA2l WxlPSdi MUIyH1DarU4xJnDuBWNpJEH kOyc+PHRhYmxlIHdpZHRoPS cqUVExJxSdjJskNT8bBl3xY GVyLWNv qNevrOHfTkGyh2ieKSAnJGz dIH0biMsbS4ZwoHO8WAXir5 d6Bg81T47xR5LzcNZ+PGNvb ZA6pLT3 hH6mZsRdIzY7UPvzM386YlS jrSIwKiwrf8bym9wayUf7Ph Y0NJVdpdWemHsxTSL9b3LoC y23L37b IHdpZHRoPSIxNSUiIHZhbGl cyw1hbA3sSo5+KZJwaEB7wG W5bC1wGwSlJtJ7RFnhQ259B nRvcCIv Ryurg9kua2xkqZc2MiVgRKP vycLdnNcoCRR5l2DhTp98S8 YcxPail4UvPqr8au77fHIaw 8N3rKD6 J6KyYHYgzjjyyKJfdSwfQE2 yPVRvvvgsLCTywB7jXFWbL5 w9XrPwPxF2GWymG8QsiaW7W GJvbGQg PUHgfUBMpR9luvyss4hbdpc kYxEhRYQxQOl3FQi7VYRkwO dzRuPxDYU1QlE5PEC9rXWxg Q5diPfb zcdjyG9lOnq+LBW0hOFejZM HWZ0xPuekyBX+FQEiPCK3aF lkGNpyXEYflH6kPYOwQ9m6I iAwLjA1 CHkdU0GogqV0GYQmdYDnXVO chEOVfU1nztoup7czxazmCz DtZKVxFEg3FIt6FQAnoCkeN iBsZWZ0 SaZ4WIS1kYXerU1uiXmvmyi elV2zKhc+UjfncPtvFZI7EO s0F4DcVdu0AGLesFosCW3ia GFkZGlu Sv8qzSrcvOdpBO5fPYPkhfb kq815WnQdp1eeDSCzgZVpUG xwTYB4H69od1Z7VALsJONzW AU7cTY0 sH8chNfsckziaQDmkJarlbB ikKdzVEviOYmjA822DRUvuT wbFpYlYPt7H3ChIcu4NAEmn FjiQV2m lQDxGHkrVx2nfAkzbHtfZW0 eLCKlutvdx010VdGgo7vvSN KnuAAmCUtqJNZ1C59re8V0A CMwMDAw LFH2cGX2nD0kiZccmpialRO mdDsgdmVydGljYWwtYWxpZ2 84LGMkhPznSeJxeVn7T5WiM jf9FBFt wPdyKC6niVYdFDxxSp5rdJb lwAimFO2qDQZgkacqt924Nx Klo5xjQQFevWRaSBcvSFE0K 71gc6W5 UOPeATWkQSL8zBH6dQ0raJg nbjogbGVmdDsgdmVydGljYW yjXWbxK761SWKtyJsvIoZgg GllbnQg LGclIIt0T9BsQlmnfWE+PC9 7LYOcIJ59aPTiaVReu5rudR w4TwGqJPMcGBB6gAfvKIesl 3JkZXIt K93rpAXka8J1AAFvxGcreUG wIaLquVW9dL9jCTzatwwhj4 hnsfpmKwmrg4rmei77iX87X 29sIHdp ZHRoPSIzMCUiIHZhbGlnbj0 ihG5fNx9+OEUihMK9bVQ7fI 2zIGGsNkO2ADjtN921UdLci CIvPjxj x7pby4hizOv0GuV3ABNqphR gkXtwZAP7u9RhQp27C77wIN dpZHRoPSIyMCUiIHZhbGlnb f6uaK4j Ii8+HTXbzGJ2sVQ0zM6rXnL fOxW7EIevA981RoHagZRmIz gvE14gV7GhkCX+NLJvVzh2S CBzdHls ZR3ldEDvBBfbPs3qDQE4VpB qLgPwZDziD8UlJFSnkeyoir dmwOR0EQOzHAIehV21Wv8kb DogMTBw mCXUcZ3bviuho6fxjinhKmW nJWZaKDl2URh0RVLjuIohNe MuGFF9LvS1KZN1bURskO3ey Glnbjog kJ9cH6JlCIOngllkVm02rA1 yZuYjLyR2TLxwRer+TUlMTE VSLCBTSEFXTkVMTEUgRTwvd GQ+PHRk BZA5pTwkQXrjXXRhfD0jZFS gR3m1RuPzWaF6PEyuW4PiMN VpkvevRe04zM3yFbWtAwC8J MrcH4Lz smN1WBOuqGKrUSmfLYQ0C54 is8X2RDVgVCXnXPB4mTQ3nH 1hbGlnbjogbGVmdDsgdmVyd GljYWwt WDtbM340KJRqwMzlLjUpKrZ oXyC7NEo7I3HqLfh0BABuyH amZQ7twEBrETvwCo7cuXbxi PbdUO4f EXFzjoxoPAZujY3iVDSsqTC dfHawEN5yCFGxjzyai798Fk QpVRX3DJNfpTRtD0JxqT2uG iAjMDAw OMRmA4VkmHHkVYjjM778ZBn vTjJ3TCIzimHhQ4WbBCLbbO mhYyS0k4I8Am1lBENFODPgg zwvdGQ+ NKXaMMY8vXmxYSneQQLcwG2 sMLPdS9s5EfIaPjT3EMygY4 YuCLKdxazvVb55cH9aRbHaY rT1MQej D6GdlsS2ZIKtfADoSXqkYBN 1O36rj3N5IKNfFOIzVJS5lC K4kL0bnLqiqhioyDLztYvym mVydGlj QQolQLvnY549FBPlnAekCaN FTUFMRTwvdGQ+JVGuMGE4mL lvSHqjGYSmfW9zGOOzP6d7V iAwLjA1 JStdN9AeBDTrdaelFx48eW3 iFlRsOdM3AEhhK7GlujE1CD SqoDZkWEgkOGD1G64du6W6O CMwMDAw GJK6lUJ0iE7lgZrdzkkueGY mdDsgdmVydGljYWwtYWxpZ2 20GBWmmPsgIj2VSK21KB93A 3RyPjwv dGFibGU+PHRhYmxlIHdpZHR zUEceFRJtRkZsuDrwKL2dBf 9yZGVyLWNvbGxhcHNlOiBjb 2xsYXBz OAeqRE4vlFraW2BqoMA9XOH ix0i1Hf12E31aF9DilNE+PG PpzTK2hLI0vT3hIsUwWbU3H NayH624 WaYyuMZyKxbzi6tpt4xctIc 6NeWaLSFkfdVytAwmLLJ3c4 ZzOp52W06eZImgZIGmDGFnL CUiIHZh rPbvdr6jhD7fGt3+PGNvbCB 0bAV2hK8hYkVjJyO4XHuuJ9 16VdCrxEUvApmqZ06cO3Ocs XA+PHRy Ztz5UTEdgZnoPQ1evANxGYm hZv4fVOH6EeNtRmRaFBkoV7 QrWTBgvhklhsylyRH5HQWgW DUwaW47 Ru8jfEqsFf3xSYNnCTJ4REZ yiDHpE9PbmQ1eYsVfSGIxUV IdV3VnvRIgBEzcW517UEtqO aP5BEHr ofUyX5AzHJBrrTptCrJ3v5I 9Px1OgKlgdXLnWN9vCsLfAE n8Z5YeRof3TPUkjYkqCI9cj GFkZGlu Rf9nkShpcFelFQ1iVUOmsdj qz600JjLci3yuAKTrjKGkZE owIPG7Z05yl1H5WPHuWMXlL MX6aIR6 pZ1yqLgnillulKVodXdtjnE alSlhQTwzJKhsO690PTXdnN tvTuTIDoc8U7YyGqw7GNLcf ExpGA6w dZBwPAqrTg7qgIvveLyrQZ7 hQBUngboly566FnDtd9isBG BabPXaDQsmKTE4E25vf1N0A CMwMDAw AFZ6zUF6kU8eqFgrrcgtmOM mdDsgdmVydGljYWwtYWxpZ2 42TGLkiLlhDy2CHis6C7VcB sg2QOWm wNjjWP7syKZbRIsjYt8spQw iaYeiOG1tMLLsdqbzn190Xz Joo6haEECsrSIpNYxjELB9X 41gy5U1 UGLtPDSeKRE4mEB9kW0vpUr nbjogbGVmdDsgdmVydGljYW xoEUhiS119ITEkmEvrYuNpd WVyOjwv dGQ+SD37ek80U1LvLzoxAqc 8NWQxEOT0kZK4gO8lAOOqHH ywa7I5uUT1X2NfqrVskn7pf 2xsYXBz ZTo (more content not included)... [facility] Rad - Other Radiology Report on 06-30-2022 Rad - Other Radiology Report [id number]#[email or web address] [facility] Consent Formson 06-26-2022 Consent Forms [id number]#[email or web address] [facility] Mammo Diagnostic 3D Left. on 06-25-2022 ME Mammo Diagnostic 3D Left. MAMMOGRAM DIAGNOSTIC 3-D [...] is recommended for further evaluation. R2 image Railroad [employer] was utilized for this study. There is what appears to be a loop recorder on the left as previously noted. R2 image [employer] was utilized for this study. IMPRESSION: There [...] Dense Recall interval: Now Final Dictated by: Rand WOMACK, Trell Rebollar Dictated DT/TM: 06/26/22 6:25 Signed (Electronic Signature): Trell Gordillo MD 06/26/22 12:57 p Technologist: AUBRIE Assessment: 4-Suspicious abnormality, biopsy should be considered Recommendation: Biopsy should be considered Normal [facility] US Breast Left Limited.on US Breast Left [...] MD 06/26/22 12:57 p Technologist: PM,ER Normal [facility] Comment on above: Order Comment: Reque st for coned down compression view and true lateral view of the left breast Coding Summaryon 06-08-2022 Coding Summary HTMLBase 64 DpgumpsePYt5aSb+PGhlYWQ +PR0WHIGiR25gqYNbxY3GW9 lCXH6NFDRYWVZGTE6AGD6ik CY2MDrxT7NmuvCk SjtegQJfSW34IXu0QBI3dBh jXPqviC7wxOUhL1a1UmAkWA 99vW32OIklTXYuJuL5GhXgg jsgbWFy K5exHyXooIBsIrm+PHRhYmx lIHdpZHRoPScxMDAlJyBzdH moDS1gSk2aBXCxJWGfiGxpc HNlOiBj w2hrWTWmAVosUP2dqOduI7H ugSN2OBIbu8l2Gi48rTG+PH LqXNK1zEuuGWnjv722QuRno 4leQRC1 nHWiSLabVHX3W24ij8E3TSZ pDDTsFFR6mIZ0eR8cgYgkjc oaK7MueQVtJcG3JBA1aMIiq A0hjCni jihhuL0pWcw+K48QGO6IVQH DVM9FCtt9D2DcOudcuXN+PC 09YYDsWT28dUZfrMLzc5kwh Ea9EuIl YOKyEOD9cWsbQThkf5CtEXG kY36fnSTah5R3JVZdjLsclV BxLaEcpRJ3rM1zFHbjmewvm 2hvdzsn Mzqpr2qpet12dI56J71zKXy mGZZwJRN5OHMaYYXthSzppf 9kmV4oZe6+UGoun2woy6vqi Xm2DbTi CPTznnUhgWhmTJR0m9UfZp0 1D4CvsYsfj9ImNcg1ea39jW Xyu8D2qBC8UJcmXTWahY4pP WxlZnQ6 OSYdUrDanI32iYQgSEvwEl5 ioQwyyVgaLE0uYETyoxnzZL MpbR2iRQMasHExmCxlBT2zM TBpbjtm w296FvReUMA2CZSjqNAlS7Q meV4eKcVmSFQbNGMcD7HftD DcTKueR108UGyiAyJ3YZVym fCeH4Rw WGWcqGabVfN7p3N3Tg2Il9C yiegyGHB4HKnlSWK5NtLmNn DkSfE7S8JvVge3PSEnsTerI C3nT1Tz DHZrjsbyycnxsIS4TNQwBQX oxD72eOQmFUaxHc9of0B4q8 43HHVdORZutW88Ht5hkEueD TBwdCBU xH0lujgln7bxfkpuTxDmCGN jOYg9OYf3ZYEmjEgpZvGbEL R8YwQ9DOE3rALupS4rlJsoo psbnO3p Oyc+M94snJ2pNRU9CBO3uae sJLPzacPqST25QK98B9JdKu wvdGFibGU+PGRpdiBzdHlsZ I3kZjZt x2kvm5HgHZchW6LrLHQjYMx fRzl3PJTcTGH1uPJ8dN8lGJ RgYSjyx0D1gFV1C9OgxlFab x0vz9xr JFTuSMxqC94qqWNdo6X3SVD eaMW0HSFtyNopFlMsgN57Dd c+EGYytOjzx5TeYjraq5wmx 4pncDz0 CrMdXYZvmtRpfDfpRKW4o8J yYn48M64eUZokMDGiDOVhZY XpTGCbrSmucr5paY1mHz8+P GNvbCB3 wOO9aS4vOSPtRiE0QFzyI15 4OkJowEPyMnyec7ogy7quhM b9UbRcNFOydxIdbLqvGGE0b 3MkUz03 J70mJDbcZBQrWJDiYIMoXIF lfOhxsy7kjB1rJg6+PC9jb2 bxuy65pP99kTI+OVPhLND9v WxlPSdw YTDvuT7oNGmkZrC0JFWwMxM uuP76uMRrWCgqZx3inJnbvM jrDU9lITLqsxbmx736WvWiv 2xkIDEw qHHfSOnrYBC8S23cz4F5ZTH rCYYsGBA3dUZ4tW1hgHnncd ogbGVmdDsgdmVydGljYWwtY NztA034 IHRvcDsnPlBhdGllbnQgTmF nGIa6K2RlVzf3TRWgqUdoNZ 1ebXViSKmkBf8xlWvvaIovH H7vGRSi mznvv756DrUzx5piWXLgaGL fUCeoJRA6R23wd6D9XICtYK LbXFH5qVT2nF7atDybjwwzp GVmdDsg umAfnNalBMuwZTemC888MFB wwVayGrRuwqJtXYEwoQJ5KR 81SO09aTUju5Y3xBS6D0SmP GRpbmct yjcnuZJ3TQZfWCIhzS28Fd2 lmWkcCs3oTKYkRRC5FINboC NvL4TdlM2rMqQlMAShDBBpM 3RleHQt LXsbG584EBnzMmD9VZJrtdK wU1MwCKSeoQyxZgC3s8M6Do 5CM5Z9RX85NI89iWXyl7K6d AW7I9Jg YOVvpplawnkeuYZ0VHMgPOI soI57Yz5hgOzzCz5zTQYgVR D2QLZnwKJzZ3RarY9tBxKkR DAwMDAw I7PutWXfCNdnS962JPpxJbR 3CRDrefRbW3KmTRUhhSmySn W1i5W3Xp3MTSw5QS29ZZ39g EAxg4W8 mTN6R4SjXOFgnaukcnauaDC 4DWRnAJFxdB29Ms7poZjmIk 8iLROwZDV9QAJnhLSfC1Gtj U2tEhFs YIGjTEXeM6JgxDEuJXodV58 0TUvvTnK4UWVcqcGxS3ScUI QrsYaqBmT4f3G0Va3WLDZvC S42ZPA3 pOH2NP63PR17G9ZvAocxyRW ibGU+PHRhYmxlIHdpZHRoPS rpJLOxDvRhvYteXW6sKu1yJ GVyLWNv jOcbgAOsFhTxw6rcAAVcOCo lYQ3snAibG9YftQZ6HDHof4 d8Sj50Q27gR1LvuLR+PGNvb NC7pKC1 rK7oFhGhLvL5GFaqS441NzU jiEByWfpsq4wbp4epbMf5Dt V3WBZpfqGjxGuwJJD9y6NfM o90M93k IHdpZHRoPSIxNSUiIHZhbGl zlw6yyK2aYi2+WRUpgDI6pZ Y9wF9zZpCpUaE0UUqmU807W nRvcCIv Lyiiy5xqe5mbwVn7KmZdHLU ylqAlyGriPXZ9e0FtDn61Q3 RvtGhwj6DjVdx5nj92lQNuu 9S9aRZ8 I4DjKRYjqwnuoSHplAxhJU9 xUOPcjpapNWEoeW4tYKPaT3 z8SiMuOpO0QTwwS7CajwV0S DEwcHQg SXzxTUM1Z24wo6T4GEZrOBF iUWP2lFT9gX8dsRqwrkfrkH VmdDsgdmVydGljYWwtYWxpZ 246IHRv oLgqDOUkwU9nZZCtvBVkpXm pLR4kKHElkconQg1WYGxFFv bjK4xAI09IAKuQKEB6A3MwN vq0OZJg mEjyXI0bkJZnVJtmEr9lfUu byMkmZN9lRKOjfnbwMUGprA 6vHIDbgFWabUcoCL0bECRja swkz971 AmUeKNZ1EKOozRCbA0HedG9 uQfMiGYAhCWKaN2YktNXkIX lqY621NPfrSjE7GDBrblSbE 2FsLWFs hRdvYmC8z5R6Tk6pEm1wUM9 wUZx6ZE02JO61qVAqu8Q0bX Z7E5PnSRGqexmenvhcrTK8X DAuMDUw tK63fYAsIUkyIm2fp3B7x56 9FTQlRQLlvP09Fp9isOojCE FllTIMaN8tuvywf2zlfbcsD zAwMDAw KCa0PSt9KJCucFikBsQwSZJ 5WcK7GEO9gBEbgN1rnUqgtf gexM9uBkh+FqSvPCGqvmH3W 0HfLil6 INRrhViqPE7hcCDhBIfwEq2 liJdxeNtpTX0jTJXktifzUD DgbS5pEDElyJKlxBidDW9rO TBpbjtm l963SwZcJQR8EAKrhIEbG5E rgC2lDuSvFOWqWACuK5LhoS HuYYxzN733IZuxTnD7DIOjq yIpZ0Zw JXUtfGukRsT7o5Z0Hh1ZAF3 FZMJ2N8CvVbg2PNJhsFulRY 6tvNHeHQmxWz9taIolpYijZ J0xYONz laysOBQjnL9mBHIufHWimNf fLB3dTHWaeiahu950DjVeJC U5NOLzuZBlG6OlkP4vVmTbN DAwMDAw U5CcqTUvEVzbY697VXogOtE 1FNYrgbQlI2EoSDKgcJwhXn G5j7N0Wf2WXAhgfKE+PC90c y30B6Jt CqksAsd9GJTzTLM1yBU4eN4 sGRJqOYqwc3U1aRU2K4Upzd Hkpa4pu3nxUIFdRTliF75np MChz8H0 VXOitZF5LXQwtYlnQaBzlK4 3Oyc+UYCujZfjw0AbQfxfy5 tpf9enwMe7QsPrACGaenPsu WduPSJ0 x4AlTo61F34pQOuzOYBzPQQ zAJNsTYKpbLdvlh9xrV4mNq 8+RUAenNZ9aLO0hI9cJrCeH eM0PAoq O073BsCnxZRmDznnz0yzk4u jkOl5YvFiBQIxxiQelGxlDT R7p1GjNr58D4CesOhux1MzH ea9gg01 rYEdc3W1gHG0V1BlLGYqrlv ypGGygEwsTR7pITVyduahJI OjyW0lEWBgF8i9AnIlHnG1Z XmgD0Ig esX2NUKlkBKmXTVykCTVyB8 kcfcge3tyahvsGtBzDCUsDW e8BFy5GUFinFwiZiCsLZU9O aK9VAX2 cEWjwJ6ymSijgmzngT4wAhp +KCn1x5tahBQyJJ8ikWR8KP 11HN66aEGvh2K0bGH6F3UiZ GRpbmct dekndGU6JTQrEPCemF21Cq3 jiOzxDj4nJLSkLCP8AXStwZ DiC1UrrQ0mNuFqOPSgYAOfH 3RleHQt PWraH147CKdpBnX6NXAmbaD pN2BiVZZocKviOfU5v2Q8Tj 1YVK86QC30AI77bEWat1S4q LQ6B2Iu FAIqsfyfyqrygHV0EDVtBOR rrF24Up0ovVxoKk2bBVXvWV N6OPUerNHdV5CstH9fNmRvT DAwMDAw O9CpxVCtZAofL872CVgkMgR 4GUPywsJfL1BkMLAskThqNk W2r7X4Hq2IPj20WV56ML40e LCbl2A8 cIF5D0KiXXMihzuomwagjQX 3NRKmIYSbxY44Qc9pcEmoEw 1oCSEtPTK2KGRtwFTxP5Tuh K0pTkMy VYMfULTfR9SagHQoQOfqQ82 3AKxaCgK6LADfwnAhR4GdWA NbvQntTtY8d4V6Sz1GQBbun bq8P2Zf PjwvdHI+RR71WXJtMG56vVZ nsCQea3fnuKo5NgElEPZcTC D8uDzlZHylk4MzXKChT61hb YRda6G7 IGN (more content not included)... [facility] Miscellaneous Testing LCon 0 06-05-2022 Misc. Test Result LC COMMENT Invalid Interpretation Code [facility] Comment on above: Order Comment: Pap w ith Ct/Ng, hr HPV, rfx 16 and 18/45ThinPrepCervixBrush/Spatula Result Comment: [id number] Source.............Cervix No. of containers..01 ThinPrep Vial Test Ordered: IGP,CtNg,AptimaHPV,rfx16/18,45 DIAGN Comment [facility] NEGATIVE FOR INTRAEPITHELIAL LESION OR MALIGNANCY. ADEQ Comment [facility] Satisfactory for evaluation. No endocervical component is identified. PERFOR Comment [facility] Sujey Zuniga, Unit Aid (ASCP) COMM . [facility] NOTE Comment WB [...] =G Reference Range: Negative Performed At: [facility] [id number] Frankie Rebollar MD Ph:[phone] Performed At: [facility] [address] [address] [place], [place] [id number] Kassie Freire MD Ph:[phone] Performed At: =[facility] [id number] Frankie Rebollar MD Ph:[phone] Performed By: #### 1 [id number] ####[facility] (DEFAULT)[address] [place] [address] Consent Formson 06-04-2022 Consent Forms [id number]#1.00O [facility] 3D Bilate ral.on 06-03-2022 [place] Mammo Screening 3D Bilateral. Mammogram screening 3-D [...] level on the MLO view. R2 image Railroad Survey[employer] was utilized for this study. IMPRESSION: Asymmetric [...] Need additional imaging evaluation Recommendation: Additional projections [facility] Outside Recordson 06-03-2022 Outside Records [id number]#1.00OT [facility]erson 05-27-2022 Provider Orders [id number]#1.00O [facility] Miscellaneous Testing LCon 0 05-26-2022 Miscellaneous Testing LC Pap w/ Ct/Ng, hr HPV, rfx Invalid Interpretation Code [facility] Comment on above: Order Comment: Pap w ith Ct/Ng, hr HPV, rfx 16 and 18/45ThinPrepCervixBrush/Spatula Performed By: #### 1 [id number] ####[facility] (DEFAULT)[address] [place] [address] Test Code LC Invalid Interpretation Code [facility] Comment on above: Order Comment: Pap w ith Ct/Ng, hr HPV, rfx 16 and 18/45ThinPrepCervixBrush/Spatula Performed By: #### 1 [id number] ####[facility] (DEFAULT)[address] [place] [address] Test Name LC Pap w/ Ct/Ng, hr HPV , rfx Invalid Interpretation Code [facility] Comment on above: Order Comment: Pap w ith Ct/Ng, hr HPV, rfx 16 and 18/45ThinPrepCervixBrush/Spatula Performed By: #### 1 [id number] ####[facility] (DEFAULT)[address] [place] [address] Outside Recordson 05-22-2022 Outside Records [id number]#1.00O [facility] CBC AUTO DIFFon 03-23-2020 Basophils (Bld) [#/Vol] 0.1 103/ul Normal 0.0-0.1 [facility] Comment on above: Performed By: #### C BC #### [facility] [address] [place], [place] [address] Akin Aysha Basophils/100 WBC (Bld) 0.6 % Normal 0.2-2.0 [facility] Comment on above: Performed By: #### C BC #### [facility] [address] [place] [address] Akin Aysha Eosinophils (Bld) [#/Vol] 0.2 103/ul Normal 0.0-0.7 [facility] Comment on above: Performed By: #### C BC #### [facility] [address] [place], [place] [address] Akin Aysha Eosinophils/100 WBC (Bld) 2.3 % Normal 0.9-7.0 [facility] Comment on above: Performed By: #### C BC #### [facility] [address] [place], [place] [address] Akin Aysha Erythrocyte distribution width (RBC) [Ratio] 12.2 % Normal 11.0-15.0 [facility] Comment on above: Performed By: #### C BC #### [facility] [address] [place], [place] [address] Akin Aysha Hematocrit (Bld) [Volume fraction] 43.4 % Normal 36.0-48.0 [facility] Comment on above: Performed By: #### C BC #### [facility] [address] [place], [place] [address] Akin Aysha Hemoglobin (Bld) [Mass/Vol] 14.4 g/dL Normal 12.0-16.0 [facility] Comment on above: Performed By: #### C BC #### [facility] [address] [place], [place] [address] Akin Aysha IG # 0.03 10e3/ul Normal 0.00-0.03 [facility] Comment on above: Performed By: #### C BC #### [facility] [address] [place], [place] [address] Akin Aysha IG % 0.3 % Normal 0.0-0.5 [facility] Comment on above: Performed By: #### C BC #### [facility] [address] [place], [place] [address] Akin Aysha Lymphocytes (Bld) [#/Vol] 3.8 103/ul Normal 1.2-3.8 [facility] Comment on above: Performed By: #### C BC #### [facility] [address] [place], [place] [address] Akin Aysha Lymphocytes/100 WBC (Bld) 37.3 % Normal 20.5-60.0 [facility] Comment on above: Performed By: #### C BC #### [facility] [address] [place], [place] [address] Akin Aysha MANUAL DIFF REQ NO Normal [facility] Comment on above: Performed By: #### C BC #### [facility] [address] [place], [place] [address] Akin Aysha MCH (RBC) [Entitic mass] 30.9 pg Normal 26.7-34.0 [facility] Comment on above: Performed By: #### C BC #### [facility] [address] [place], [place] [address] Akin Aysha MCHC (RBC) [Mass/Vol] 33.2 g/dL Normal 29.9-35.2 [facility] Comment on above: Performed By: #### C BC #### [facility] [address] [place], [place] [address] Akin Aysha MCV (RBC) [Entitic vol] 93.1 fL Normal 81.0-99.0 [facility] Comment on above: Performed By: #### C BC #### [facility] [address] [place], [place] [address] Akin Aysha Monocytes (Bld) [#/Vol] 0.9 103/ul Critically high 0.3-0.8 [facility] Comment on above: Performed By: #### C BC #### [facility] [address] [place] [address] Akin Aysha Monocytes/100 WBC (Bld) 8.7 % Normal 1.7-12.0 [facility] Comment on above: Performed By: #### C BC #### [facility] [address] [place] [address] Akin Aysha Neutrophils (Bld) [#/Vol] 5.2 103/ul Normal 1.4-6.5 [facility] Comment on above: Performed By: #### C BC #### [facility] [address] [place], [place] [address] Akin Aysha Neutrophils/100 WBC (Bld) 50.8 % Normal 43.0-75.0 [facility] Comment on above: Performed By: #### C BC #### [facility] [address] [place], [place] [address] Akinenio [place] Platelet mean volume (Bld) [Entitic vol] 8.6 fL Critically low 9.5-13.5 [facility] Comment on above: Performed By: #### C BC #### [facility] [address] [place], [place] [address] Akin Aysha Platelets (Bld) [#/Vol] 347 103/ul Normal 150-450 [facility] Comment on above: Performed By: #### C BC #### [facility] [address] [place] [address] Akin Aysha RBC (Bld) [#/Vol] 4.66 106/ul Normal 4.20-5.40 [facility] Comment on above: Performed By: #### C BC #### [facility] [address] [place] [address] Akin Aysha WBC (Bld) [#/Vol] 10.2 103/ul Normal 4.0-11.0 [facility] Comment on above: Performed By: #### C BC #### [facility] [address] [place] [address] STROKE HEAD WOon 03-23-19 [...] by: SUZI SAID Date: 2020-03-22 23:46 Normal [facility] CTA HEAD WO W CONon 03-23-19 21 CTA HEAD WO W CON EXAM: CTA HEAD WO W CON 03/22/2020 11:04 PM EST OH001 CLINICAL STATEMENT: Dysarthria COMPARISON: No prior studies are available at the time of dictation. TECHNIQUE: Routine [place]/brain CT angiogram protocol was performed following 75 cc Omnipaque 350 of intravenous contrast. AEC is utilized. 2-D and 3D reconstructions were reviewed. FINDINGS: There is no evidence for intracranial aneurysm and/or high-grade stenosis of the [place]. The vertebrobasilar artery is patent [...] by: SUZI SAID Date: 2020-03-23 00:52 Normal [facility] CTA NECK WO W CONon 03-23-19 21 [...] Electronically authenticated by: SUZI SAID Date: 2020-03-23 00:54 Normal [facility] CULTURE URINEon 03-23-2020 CULTURE URINE Culture Observations : NO GROWTH Normal [facility] Comment on above: Performed By: #### I NFLUAB #### [facility] [address] [place] [address] Akin Aysha DRUG SCREEN RAPID (URINE)on 03-23-2020 AMP Negative Normal NEGATIVE [facility] Comment on above: Performed By: #### U MICRO, DRUGRPD, ERUR #### [facility] [address] [place] [address] Akin Aysha BAR Negative Normal NEGATIVE [facility] Comment on above: Performed By: #### U MICRO, DRUGRPD, ERUR #### [facility] [address] [place] [address] Akin Aysha BUP Negative Normal NEGATIVE [facility] Comment on above: Performed By: #### U MICRO, DRUGRPD, ERUR #### [facility] [address] [place] [address] Akin Aysha BZO Negative Normal NEGATIVE [facility] Comment on above: Performed By: #### U MICRO, DRUGRPD, ERUR #### [facility] [address] [place] [address] Akin Aysha JESUS Negative Normal NEGATIVE [facility] Comment on above: Performed By: #### U MICRO, DRUGRPD, ERUR #### [facility] [address] [place] [address] Akin Aysha CUT-OFFS SEE BELOW Normal [facility] Comment on above: Result Comment: AMP [...] By: #### U MICRO, DRUGRPD, ERUR #### [facility] [address] [place] [address] Akin Aysha DRUG CUT HEADER DRUG CLASS TEST SYST EM CUT-OFF CONCENTRATIONS ARE FOLLOWS: Normal [facility] Comment on above: Performed By: #### U MICRO, DRUGRPD, ERUR #### [facility] [address] [place] [address] Akin Aysha mAMP Negative Normal NEGATIVE [facility] Comment on above: Performed By: #### U MICRO, DRUGRPD, ERUR #### [facility] [address] [place] [address] Akin Aysha MTD Negative Normal NEGATIVE [facility] Comment on above: Performed By: #### U MICRO, DRUGRPD, ERUR #### [facility] [address] [place] [address] Akin Aysha OPI Negative Normal NEGATIVE [facility] Comment on above: Performed By: #### U MICRO, DRUGRPD, ERUR #### [facility] [address] [place] [address] Akin Aysha OXY Negative Normal NEGATIVE [facility] Comment on above: Performed By: #### U MICRO, DRUGRPD, ERUR #### [facility] [address] [place] [address] Akin Aysha PCP Negative Normal NEGATIVE [facility] Comment on above: Performed By: #### U MICRO, DRUGRPD, ERUR #### [facility] [address] [place] [address] Akin Aysha PPX Negative Normal NEGATIVE [facility] Comment on above: Performed By: #### U MICRO, DRUGRPD, ERUR #### [facility] [address] [place] [address] Akin Aysha TCA Negative Normal NEGATIVE [facility] Comment on above: Performed By: #### U MICRO, DRUGRPD, ERUR #### [facility] [address] [place] [address] Akin Aysha THC Positive Abnormal NEGATIVE [facility] Comment on above: Performed By: #### U MICRO, DRUGRPD, ERUR #### [facility] [address] [place] [address] Akin Olmstead ER URINE PROFILEon 1 Bilirubin [Mass/Vol] Negative Normal NEGATIVE [facility] Comment on above: Performed By: #### U MICRO, DRUGRPD, ERUR #### [facility] [address] [place] [address] Akin Olmstead BLOOD TRACE-INTACT Abnormal NEGATIVE [facility] Comment on above: Performed By: #### U MICRO, DRUGRPD, ERUR #### [facility] [address] [place] [address] Akin Aysha Clarity (U) CLEAR Normal CLEAR [facility] Comment on above: Performed By: #### U MICRO, DRUGRPD, ERUR #### [facility] [address] [place] [address] Akinenio Ol[place] Color (U) YELLOW Normal YELLOW [facility] Comment on above: Performed By: #### U MICRO, DRUGRPD, ERUR #### [facility] [address] [place] [address] Akinenio Segundoen ERUAHD A micrscopic examination will be performed if indicated. Normal [facility] Comment on above: Performed By: #### U MICRO, DRUGRPD, ERUR #### [facility] [address] [place] [address] Akin Aysha Glucose [Mass/Vol] Negative Normal NEGATIVE [facility] Comment on above: Performed By: #### U MICRO, DRUGRPD, ERUR #### [facility] [address] [place] [address] Akin Aysha Ketones Ql (U) Negative Normal NEGATIVE [facility] Comment on above: Performed By: #### U MICRO, DRUGRPD, ERUR #### [facility] [address] [place] [address] Akin Aysha Nitrite Ql (U) Negative Normal NEGATIVE [facility] Comment on above: Performed By: #### U MICRO, DRUGRPD, ERUR #### [facility] [address] [place] [address] Akin Olmstead pH (Bld) 5.5 Normal 5-9 [facility] Comment on above: Performed By: #### U MICRO, DRUGRPD, ERUR #### [facility] [address] [place] [address] Akin Ol[place]stead Protein (U) [Mass/Vol] Negative Normal NEGATIVE/ TRACE [facility] Comment on above: Performed By: #### U MICRO, DRUGRPD, ERUR #### [facility] [address] [place] [address] Akin Olmstead SPEC GRAVITY 1.025 Normal 1.005-<=1.025 [facility] Comment on above: Performed By: #### U MICRO, DRUGRPD, ERUR #### [facility] [address] [place] [address] Akin Olmstead UR MICRO IND INDICATED Normal [facility] Comment on above: Performed By: #### U MICRO, DRUGRPD, ERUR #### [facility] [address] [place] [address] Akin Olmstead Urobilinogen Qn (U) 0.2 EU/dl Normal 0.2 - 1.0 [facility] Comment on above: Performed By: #### U MICRO, DRUGRPD, ERUR #### [facility] [address] [place] [address] Akin Olmstead WBC (Bld) [#/Vol] Negative Normal NEGATIVE [facility] Comment on above: Performed By: #### U MICRO, DRUGRPD, ERUR #### [facility] [address] [place] [id number] Akin Olmstead POINT OF CARE GLUCOSEon 03-11 Glucose [Mass/Vol] 111 mg/dL Critically high 74-106 [facility] Comment on above: Performed By: #### P OCGLUC #### [facility] [address] [place] [address] Akin Olmstead URon 03-23-2020 , QUAL Negative Normal NEGATIVE [facility] Comment on above: Performed By: #### P REGU #### [facility] [address] [place], [place] [address] Akin Olmstead PROF 14(COMP METB)on 021 Albumin [Mass/Vol] 3.9 g/dL Normal 3.5-5.0 [facility] Comment on above: Performed By: #### C CHRISTIAN HSTROPN #### [facility] [address] [place], [place] [address] Akin Aysha Albumin/Globulin [Mass ratio] 1.0 {ratio} Normal [facility] Comment on above: Performed By: #### C CHRISTIAN, HSTROPN #### [facility] [address] [place] [address] Akin Aysha ALP [Catalytic activity/Vol] 43 U/L Normal 38-126 [facility] Comment on above: Performed By: #### C CHRISTIAN HSTROPN #### [facility] [address] [place] [address] Akin Aysha ALT [Catalytic activity/Vol] 29 U/L Normal 9-52 [facility] Comment on above: Performed By: #### C CHRISTIAN HSTROPN #### [facility] [address] [place] [address] Akin Aysha Anion gap [Moles/Vol] 13.1 mmol/L Normal [facility] Comment on above: Performed By: #### C CHRISTIAN, HSTROPN #### [facility] [address] [place] [address] Akin Aysha AST [Catalytic activity/Vol] 20 U/L Normal 14-36 [facility] Comment on above: Performed By: #### C CHRISTIAN, HSTROPN #### [facility] [address] [place], [place] [address] Akin Aysha Bilirubin Ql (U) 0.2 mg/dL Normal 0.2-1.3 [facility] Comment on above: Performed By: #### C CHRISTIAN HSTROPN #### [facility] [address] [place] [address] Akin Aysha Calcium [Mass/Vol] 9.3 mg/dL Normal 8.4-10.2 [facility] Comment on above: Performed By: #### C CHRISTIAN, HSTROPN #### [facility] [address] [place] [address] Akin Aysha Chloride [Moles/Vol] 105 mmol/L Normal 98-107 [facility] Comment on above: Performed By: #### C CHRISTIAN, HSTROPN #### [facility] [address] [place] [address] Akin Aysha CO2 [Moles/Vol] 24.4 mmol/L Normal 22.0-30.0 [facility] Comment on above: Performed By: #### C CHRISTIAN, HSTROPN #### [facility] [address] [place] [address] Akin Aysha Creatinine [Mass/Vol] 0.72 mg/dL Normal 0.52-1.04 [facility] Comment on above: Performed By: #### C CHRISTIAN, HSTROPN #### [facility] [address] [address] Akin Aysha EGFR-AF [place] >60 Normal >=60 [facility] Comment on above: Performed By: #### C CHRISTIAN, HSTROPN #### [facility] [address] [place] [address] Akin Aysha EGFR-NON AF [place] >60 Normal >=60 [facility] Comment on above: Performed By: #### C CHRISTIAN, HSTROPN #### [facility] [address] [address] Akin Aysha Globulin (S) [Mass/Vol] 3.8 g/dL Normal [facility] Comment on above: Performed By: #### C CHRISTIAN, HSTROPN #### [facility] [address] [address] Akin Aysha Glucose [Mass/Vol] 91 mg/dL Normal 74-106 [facility] Comment on above: Performed By: #### C CHRISTIAN, HSTROPN #### [facility] [address] [address] Akin Aysha Potassium [Moles/Vol] 3.5 mmol/L Normal 3.4-5.0 [facility] Comment on above: Performed By: #### C CHRISTIAN, HSTROPN #### [facility] [address] [place], [place] [id number] Akin Aysha Protein [Mass/Vol] 7.7 g/dL Normal 6.1-8.2 [facility] Comment on above: Performed By: #### C CHRISTIAN, HSTROPN #### [facility] [address] [place], [place] [id number] Akin Aysha Sodium [Moles/Vol] 139 mmol/L Normal 137-145 [facility] Comment on above: Performed By: #### C CHRISTIAN, HSTROPN #### [facility] [address] [place] [address] Akin Aysha Urea nitrogen [Mass/Vol] 15.0 mg/dL Normal 7.0-17.0 [facility] Comment on above: Performed By: #### C CHRISTIAN, HSTROPN #### [facility] [address] [place], [place] [id number] Akin Aysha Urea nitrogen/Creatinin e [Mass ratio] 20.8 mg/mg Normal [facility] Comment on above: Performed By: #### C CHRISTIAN, HSTROPN #### [facility] [address] [place] [address] Akin Aysha TROPONIN, HIGH SENSITIVITYon 03-23-2020 HSTROP 4.0 pg/mL Normal 4.0-35.5 [facility] Comment on above: Result Comment: CUT- OFF POINTS HAVE BEEN ESTABLISHED BASED ON THE FOURTH UNIVERSAL DEFINITIONS OF MYOCARDIAL INFARCTION. THE UPPER REFERENCE LIMIT (URL) OF TROPONIN, DEFINED THE 99TH PERCENTILE OF cTnI DISTRIBUTION IN A REFERENCE POPULATION, HAS BEEN CONFIRMED THE DECISION THRESHOLD FOR [place] DIAGNOSIS. Performed By: #### C CHRISTIAN, HSTROPN #### [facility] [address] [place], [place] [id number] Akin Aysha URINE MICROSCOPIC ONLYon Bacteria LM.HPF (Urine sed) [#/Area] MODERATE Abnormal NONE SEEN [facility] Comment on above: Performed By: #### I NFLUAB #### [facility] [address] [place] [address] Akin Aysha CAST NONE SEEN Normal NONE SEEN [facility] Comment on above: Performed By: #### I NFLUAB #### [facility] [address] [place] [address] Akin Aysha Crystals LM Nom (Urine sed) NONE SEEN Normal NONE SEEN [facility] Comment on above: Performed By: #### I NFLUAB #### [facility] [address] [place] [address] Akin Aysha CULTURE INDICATED Normal [facility] Comment on above: Performed By: #### I NFLUAB #### [facility] [address] [place] [address] Akin Aysha Epithelial cells LM.HPF (Urine sed) [#/Area] FEW Abnormal NONE SEEN /RARE [facility] Comment on above: Performed By: #### I NFLUAB #### [facility] [address] [place] [address] Akin Aysha MUCOUS NONE SEEN Normal NONE SEEN [facility] Comment on above: Performed By: #### I NFLUAB #### [facility] [address] [place] [address] Akin Aysha RBC (U) [#/Vol] 0-2 Normal 0-2 [facility] Comment on above: Performed By: #### I NFLUAB #### [facility] [address] [place] [address] Akin Aysha WBC (Bld) [#/Vol] 2-5 Abnormal NONE SEEN [facility] Comment on above: Performed By: #### I NFLUAB #### [facility] [address] [place] [address] Akin Aysha CBC AUTO DIFFon 05-12-2019 Basophils (Bld) [#/Vol] 0.1 103/ul Normal 0.0-0.1 [facility] Comment on above: Performed By: #### C BC #### [facility] [address] [place], [place] [address] Akin Aysha Basophils/100 WBC (Bld) 0.7 % Normal 0.2-2.0 [facility] Comment on above: Performed By: #### C BC #### [facility] [address] [place], [place] [address] Akin Aysha Eosinophils (Bld) [#/Vol] 0.2 103/ul Normal 0.0-0.7 [facility] Comment on above: Performed By: #### C BC #### [facility] [address] [place] [address] Akin Aysha Eosinophils/100 WBC (Bld) 1.6 % Normal 0.9-7.0 [facility] Comment on above: Performed By: #### C BC #### [facility] [address] [place] [address] Akin Aysha Erythrocyte distribution width (RBC) [Ratio] 12.1 % Normal 11.0-15.0 [facility] Comment on above: Performed By: #### C BC #### [facility] [address] [place] [address] Akin Aysha Hematocrit (Bld) [Volume fraction] 42.5 % Normal 36.0-48.0 [facility] Comment on above: Performed By: #### C BC #### [facility] [address] [place], [place] [address] Akin Aysha Hemoglobin (Bld) [Mass/Vol] 14.5 g/dL Normal 12.0-16.0 [facility] Comment on above: Performed By: #### C BC #### [facility] [address] [place] [address] Akin Aysha IG # 0.03 10e3/ul Normal 0.00-0.03 [facility] Comment on above: Performed By: #### C BC #### [facility] [address] [place] [address] Akin Aysha IG % 0.3 % Normal 0.0-0.5 [facility] Comment on above: Performed By: #### C BC #### [facility] [address] [place] [address] Akin Aysha Lymphocytes (Bld) [#/Vol] 4.2 103/ul Critically high 1.2-3.8 [facility] Comment on above: Performed By: #### C BC #### [facility] [address] [place], [place] [address] Akin Aysha Lymphocytes/100 WBC (Bld) 36.2 % Normal 20.5-60.0 [facility] Comment on above: Performed By: #### C BC #### [facility] [address] [place] [address] Akin Aysha MANUAL DIFF REQ NO Normal [facility] Comment on above: Performed By: #### C BC #### [facility] [address] [place], [place] [address] Akin Aysha MCH (RBC) [Entitic mass] 31.3 pg Normal 26.7-34.0 [facility] Comment on above: Performed By: #### C BC #### [facility] [address] [place] [address] Akin Aysha MCHC (RBC) [Mass/Vol] 34.1 g/dL Normal 29.9-35.2 [facility] Comment on above: Performed By: #### C BC #### [facility] [address] [place] [address] Akin Aysha MCV (RBC) [Entitic vol] 91.6 fL Normal 81.0-99.0 [facility] Comment on above: Performed By: #### C BC #### [facility] [address] [place] [address] Akin Aysha Monocytes (Bld) [#/Vol] 0.8 103/ul Normal 0.3-0.8 [facility] Comment on above: Performed By: #### C BC #### [facility] [address] [place], [place] [address] Akin Aysha Monocytes/100 WBC (Bld) 7.2 % Normal 1.7-12.0 [facility] Comment on above: Performed By: #### C BC #### [facility] [address] [place], [place] [address] Akin Aysha Neutrophils (Bld) [#/Vol] 6.2 103/ul Normal 1.4-6.5 [facility] Comment on above: Performed By: #### C BC #### [facility] [address] [place], [place] [address] Akin Aysha Neutrophils/100 WBC (Bld) 54.0 % Normal 43.0-75.0 [facility] Comment on above: Performed By: #### C BC #### [facility] [address] [place], [place] [address] Akin Aysha Platelet mean volume (Bld) [Entitic vol] 8.7 fL Critically low 9.5-13.5 [facility] Comment on above: Performed By: #### C BC #### [facility] [address] [place], [place] [address] Akin Aysha Platelets (Bld) [#/Vol] 333 103/ul Normal 150-450 [facility] Comment on above: Performed By: #### C BC #### [facility] [address] [place], [place] [address] Akin Aysha RBC (Bld) [#/Vol] 4.64 106/ul Normal 4.20-5.40 [facility] Comment on above: Performed By: #### C BC #### [facility] [address] [place], [place] [address] Akin Aysha WBC (Bld) [#/Vol] 11.5 103/ul Critically high 4.0-11.0 [facility] Comment on above: Performed By: #### C BC #### [facility] [address] [place], [place] [address] Akin Aysha ER URINE PROFILEon 0 Bilirubin [Mass/Vol] Negative Normal NEGATIVE [facility] Comment on above: Performed By: #### I NFLUAB #### [facility] [address] [place], [place] [address] Akin Aysha BLOOD Negative Normal NEGATIVE [facility] Comment on above: Performed By: #### I NFLUAB #### [facility] [address] [place], [place] [address] Akin Aysha Clarity (U) CLOUDY Normal [facility] Comment on above: Performed By: #### I NFLUAB #### [facility] [address] [place] [address] Akin Aysha Color (U) LT. YELLOW Normal YELLOW [facility] Comment on above: Performed By: #### I NFLUAB #### [facility] [address] [place] [address] Akin Aysha ERUAHD A micrscopic examination will be performed if indicated. Normal [facility] Comment on above: Performed By: #### I NFLUAB #### [facility] [address] [place] [address] Akin Aysha Glucose [Mass/Vol] Negative Normal NEGATIVE [facility] Comment on above: Performed By: #### I NFLUAB #### [facility] [address] [place] [address] Akin Aysha Ketones Ql (U) Negative Normal NEGATIVE [facility] Comment on above: Performed By: #### I NFLUAB #### [facility] [address] [place] [address] Akin Aysha Nitrite Ql (U) Negative Normal NEGATIVE [facility] Comment on above: Performed By: #### I NFLUAB #### [facility] [address] [place] [address] Akin Aysha pH (Bld) 8.5 Normal 5-9 [facility] Comment on above: Performed By: #### I NFLUAB #### [facility] [address] [place] [address] Akin Aysha Protein (U) [Mass/Vol] Negative Normal [facility] Comment on above: Performed By: #### I NFLUAB #### [facility] [address] [place] [address] Akin Aysha SPEC GRAVITY 1.015 Normal 1.005-<=1.025 [facility] Comment on above: Performed By: #### I NFLUAB #### [facility] [address] [place] [address] Akin Aysha UR MICRO IND NOT INDICATED Normal [facility] Comment on above: Performed By: #### I NFLUAB #### [facility] [address] [place] [address] Akin Olmstead Urobilinogen Qn (U) 0.2 EU/dl Normal [facility] Comment on above: Performed By: #### I NFLUAB #### [facility] [address] [place] [address] Akin Olmstead WBC (Bld) [#/Vol] Negative Normal NEGATIVE [facility] Comment on above: Performed By: #### I NFLUAB #### [facility] [address] [place] [address] Akin Olmstead INFLUENZA A AND B AGon 05-11 INFLUANEGH SEE BELOW Normal [facility] Comment on above: Result Comment: Nega tive for Flu A protein angiten. Infection due to Flu A cannot be ruled out. Flu A angiten in the sample may be below the detection limit of the test. Performed By: #### I NFLUAB #### [facility] [address] [place] [address] Akin Olmstead INFLUBNEGH SEE BELOW Normal [facility] Comment on above: Result Comment: Nega tive for Flu B protein antigen. Infection due to Flu B cannot be ruled out. Flu B antigen in the sample may be below the detection limit of the test. Performed By: #### I NFLUAB #### [facility] [address] [place] [address] Akin Olmstead INFLUENZA A AG Negative Normal NEGATIVE SEE COMMENT [facility] Comment on above: Performed By: #### I NFLUAB #### [facility] [address] [place] [address] Akin Olmstead INFLUENZA B AG Negative Normal NEGATIVE SEE COMMENT [facility] Comment on above: Performed By: #### I NFLUAB #### [facility] [address] [place] [address] Akin Olmstead INTERNAL CONTROLS Within Normal Limits Normal Wi thin Normal Limits [facility] Comment on above: Performed By: #### I NFLUAB #### [facility] [address] [id number] Akin Aysha LACTATE/LACTIC ACIDon 2019 Lactate [Moles/Vol] 0.8 mmol/L Normal 0.7-2.0 [facility] Comment on above: Performed By: #### I NFLUAB #### [facility] [address] [address] Akin Aysha PROF CHEM 8 (BAS METB)on Anion gap [Moles/Vol] 9.3 mmol/L Normal [facility] Comment on above: Performed By: #### B MP #### [facility] [address] [address] Akin Aysha Calcium [Mass/Vol] 9.4 mg/dL Normal 8.4-10.2 [facility] Comment on above: Performed By: #### B MP #### [facility] [address] [place] [address] Akin Aysha Chloride [Moles/Vol] 105 mmol/L Normal 98-107 [facility] Comment on above: Performed By: #### B MP #### [facility] [address] [id number] Akin Aysha CO2 [Moles/Vol] 28.3 mmol/L Normal 22.0-30.0 [facility] Comment on above: Performed By: #### B MP #### [facility] [address] [address] Akin Aysha Creatinine [Mass/Vol] 0.81 mg/dL Normal 0.52-1.04 [facility] Comment on above: Performed By: #### B MP #### [facility] [address] [id number] Akin Aysha EGFR-AF [place]TH [place]OREAN >60 Normal >=60 The [facility] Comment on above: Performed By: #### B MP #### [facility] [address] [address] Akin Aysha EGFR-NON AF [place]OREAN >60 Normal >=60 [facility] Comment on above: Performed By: #### B MP #### [facility] [address] [address] Akin Aysha Glucose [Mass/Vol] 111 mg/dL Critically high 74-106 [facility] Comment on above: Performed By: #### B MP #### [facility] [address] [id number] Akin Aysha Potassium [Moles/Vol] 3.6 mmol/L Normal 3.4-5.0 [facility] Comment on above: Performed By: #### B MP #### [facility] [address] [address] Akin Aysha Sodium [Moles/Vol] 139 mmol/L Normal 137-145 [facility] Comment on above: Performed By: #### B MP #### [facility] [address] [address] Akin Aysha Urea nitrogen [Mass/Vol] 13.0 mg/dL Normal 7.0-17.0 [facility] Comment on above: Performed By: #### B MP #### [facility] [address] [id number] Akin Aysha Urea nitrogen/Creatinin e [Mass ratio] 16.0 mg/mg Normal [facility] Comment on above: Performed By: #### B MP #### [facility] [address] [place], [place] [address] Akinenio Segundoen XR CHEST 2 Von 05-12-2019 XR CHEST [...] by: Mayra DEGROOT Date: 2019-05-11 23:24 Normal [facility] DNA Extraction and holdon DNA Extraction and hold SEE BELOW Normal [facility] Comment on above: Result Comment: SPEC IMEN: BLOOD DNA EXTRACTION AND HOLD SPECIMEN TYPE: EDTA Blood Date Received: 12/28/18 EXTRACTION: DNA extracted from 3.0ml EDTA blood Method: [employer] Reagents from [employer] ANALYSIS: DNA concentration: 571.4ng/ul Total volume DNA: 225ul (in TE buffer) DNA Purity 260/280 Ratio: 1.9 Total DNA yield: 128.6ug STORAGE AND SPECIAL INSTRUCTIONS: The extracted DNA is stored in the [facility] at -700C in the DS & EX 2019 box. Holding for future testing. Any questions regarding this sample, please contact [facility] at [phone]. VANESSA CUNHA 01/11/2019 Performed By: #### D YAAZ #### [facility] [address] [address] SURGICAL PATHOLOGYon 019 SURGICAL PATHOLOGY Specimen #: [id number] Submitting Physician: ASHWINI SIMONS M.D. FINAL DIAGNOSIS Soft tissue, left posterior shoulder, excision - Lipoma with fat necrosis, see comment. SAMRA/NACHO/rw 08/08/2018 COMMENT Many thanks for sending in consultation this case of a [id number] with a lesion on the left posterior [...] Please call the Dermatopathology Consultation Service at [phone] with questions or if additional follow-up information becomes available regarding this patient. This case was reviewed in conjunction with the Dermatopathology Fellow, Dr. Clements. Fam Wong M.D. (Electronic Signature) SPECIMEN SUBMITTED A: 12 SLIDES ([id number]: A-J) CLINICAL DATA None provided. Date of Report: 08/08/2018 Date of Procedure: 08/04/2018 Date of Receipt: 08/04/2018 Submitted by: ASHWINI SIMONS M.D. Location: Diagnostic interpretation performed at [facility], [address] [place] [address]. CLIA Number: [id number] Normal [facility] Comment on above: Performed By: #### S #### See report for performing lab information. Vital Signs Date Time Vital Sign Value Performing Clinician Maurice villegas 04-15-2023 12:35-0500 Body height 152.4 cm Rhea Mason ASSEMBLY TECHNICIANWhirlpool Work Phone: [facility] 04-15-2023 12:35-0500 Body mass index (BMI) [Ratio] 29.02 kg/m2 [facility] ASSEMBLY TECHNICIANStem Cent[employer] Work Phone: [facility] 04-15-2023 12:35-0500 Body weight 67.41 kg Rhea Mason [employer]SEMBL[employer] TECHNICIANWhirl[employer] Work Phone: [facility] 04-15-2023 12:35-0500 Diastolic blood pressure 70 mm[Hg] [facility] ASSEMBLY TECHNICIANYouxiduoPLUGMAN Work Phone: [facility] 04-15-2023 12:35-0500 Heart rate 80 /min [facility] Work [facility]: [facility] 04-15-2023 12:35-0500 SaO2% (BldA) [Mass fraction] 97 % Rhea Mason ASSEMBLY TECHNICIANStem Cent[employer] Work Phone: [facility] 04-15-2023 12:35-0500 Systolic blood pressure 116 mm[Hg] Rhea [facility] Center[facility] Work Phone: [facility] Encounters Encounter Date Encounter Type Care Provider Facility Start: 05-12-2023 End: 05-12-2023 ambulatory AUGUSTINE GRAYSON Not Available Start: 04-30-2023 End: 04-30-2023 ambulatory Juan Violet Facility:[facility] Start: 04-30-2023 End: 04-30-2023 ambulatory Juan Violet Work Phone: [facility] Work Phone: Start: 04-30-2023 End: 04-30-2023 Departed Referred Juan Violet Work Phone: [facility] Start: 04-15-2023 End: 04-15-2023 ambulatory [facility] Start: 04-15-2023 Encounter for other preprocedural examination [facility] Start: 04-15-2023 Telephone encounter Rhea Perez RN [facility] Comment on above: Surgical Or Dental C learance Start: 04-15-2023 End: 04-15-2023 Office outpatient visit 15 minutes Rhea Cuevas ASSEMBLY TECHNICIAN-PLUGMAN Work Phone: [facility] Comment on above: Preop examination (P rimary Dx); Paroxysmal atrial fibrillation (CMS-HCC); Near syncope; Atrial flutter, unspecified type ([facility]-HCC) Start: 04-15-2023 End: 04-15-2023 Preprocedural examination done Rhea [facility] ASSEMBLY TECHNICIAN-PLUGMAN Work Phone: [facility] Start: 04-07-2023 End: 04-07-2023 Departed Referred Juan Violet Work Phone: [facility] Start: 04-07-2023 End: 04-07-2023 ambulatory Juan Violet Facility:[facility] Start: 03-03-2023 End: 03-03-2023 ambulatory JUAN VIOLET Not Available Start: 02-17-2023 End: 02-18-2023 ambulatory Lashell A Sajan ALLIANCE MANAGER-C Facility:[facility] Start: 02-15-2023 End: 02-15-2023 ambulatory Lashell A Sajan ALLIANCE MANAGER-C Facility:[facility] Start: 01-08-2023 End: 01-08-2023 ambulatory Lashell A Sajan ALLIANCE MANAGER-C Facility:[facility] Start: 07-15-2022 End: 07-15-2022 ambulatory Trevon Pruitt Facility:[facility] Start: 07-15-2022 End: 07-15-2022 ambulatory MD Trevon Pruitt Work Phone: [facility] Work Phone: Start: 07-15-2022 End: 07-15-2022 Departed Referred MD Trevon Pruitt Work Phone: [facility] Start: 07-15-2022 End: 07-16-2022 ambulatory Trevon Pruitt Facility:[facility] Start: 07-09-2022 Patient encounter status Rhea Acostakimberly ASSEMBLY TECHNICIAN-PLUGMAN Work Phone: [facility] Work Phone: Start: 07-09-2022 End: 07-10-2022 ambulatory Tien Felix Facility:[facility] Start: 07-08-2022 End: 07-09-2022 ambulatory Lashell A Sajan ALLIANCE MANAGER-C Facility:[facility] Start: 06-25-2022 End: 06-26-2022 ambulatory Lashell A Sajan ALLIANCE MANAGER-C Facility:[facility] Start: 06-03-2022 End: 06-04-2022 ambulatory Lashell A Sajan ALLIANCE MANAGER-C Facility:[facility] Start: 05-26-2022 End: 05-27-2022 ambulatory Lashell A Sajan ALLIANCE MANAGER-C Facility:[facility] Start: 05-26-2022 End: 05-27-2022 ambulatory Lashell A Sajan ALLIANCE MANAGER-C Facility:[facility] Start: 03-23-2020 End: 03-23-2020 Patient encounter procedure ADILIA PEREZ Facility:[facility] Start: 05-11-2019 End: 05-12-2019 Patient encounter procedure DELON DE LA CRUZ Facility:[facility] Procedures Date Procedure Procedure Detail Performing Clinician Start: 04-15-2023 Ecg routine ecg w/le ast 12 lds w/i&r Rhea Acostakimberly ASSEMBLY TECHNICIAN-PLUGMAN Work Phone: Start: 05-12-2019 End: 05-12-2019 Microscopic examination of blood, culture DELON DE LA CRUZ Comment on above: Performed By: #### I NFLUAB #### [facility] [address] [address] Akin Olmstead Plan of Treatment Date Care Activity Detail Author Start: 04-14-2024 Adult BMI Screening Adult BMI Screen ing [facility] Start: 04-14-2024 Tobacco Screening Tobacco Screening [facility] Start: 08-18-2023 End: 08-18-2023 Patient encounter procedure 08/18/2023 8:45 AM EDT Office Visit [facility] [address] [facility] [address] [place] [address] Delon Pedersen MD [address] [place] [address] [facility] Start: 10-09-2022 Influenza vaccination Influenza Vacc ine [facility] Start: 10-05-2022 DTaP,Tdap and Td Vaccines (7 - Td or Tdap) DTaP,Tdap and Td Vaccines (7 - Td or Tdap) [facility] Start: 2008 Screening for malign ant neoplasm of cervix Pap Smear [facility] Start: 2005 Adult BMI Follow Up Plan Adult BMI Follow Up Plan [facility] Start: 1999 Depression Screening Depression Scre ening [facility] Start: 1987 Tobacco Counseling Tobacco Counselin g [facility] Payers Date Payer Category Payer Self-pay 2022 Medicaid [id number] 2021 Worker's Compensation WORKER'S C OMPENSATION WORKER'S [id number] ONLY [id number] 2021-Present [address] [facility] [address] [place] [address] [id number] 2002 Medicaid [place] [employer] [employer] [id number] 2002-Present [phone] [facility] [address] [place] [address] [id number]. [id number] 1987 Unknown [id number] 2.16.840.1.589169.3.579.2. 593 1987 Unknown [id number] 2.16.840.1.363870.3.579.2. 593 1987 Unknown [id number] 2.16.840.1.017335.3.579.2. 1286 1987 Unknown [id number] 2.16.840.1.935686.3.579.2. 71 1987 Unknown [id number] 2.16.840.1.328842.3.579.2. 718 1987 Unknown [id number] 2.16.840.1.406232.3.579.2. 1987 Unknown [id number] 2.16.840.1.710525.3.579.2. 718 1987 Unknown [id number] 2.16.840.1.912872.3.579.2. 718 1987 Unknown [id number] 2.16.840.1.815948.3.579.2. 718 1987 Unknown [id number] 2.16.840.1.790633.3.579.2. 718 1987 Unknown [id number] 2.16.840.1.698334.3.579.2. 718 1987 Unknown [id number] 2.16.840.1.225283.3.579.2. 718 1987 Unknown [id number] 2.16.840.1.972314.3.579.2. 718 1987 Unknown [id number] 2.16.840.1.406344.3.579.2. 718 1987 Unknown [id number] 2.16.840.1.423078.3.579.2. 1259 1987 Unknown [id number] 2.16.840.1.660913.3.579.2. 1259 1987 Unknown [id number] 2.16.840.1.744305.3.579.2. 1259 1959 Unknown [id number] Social History Date Type Detail Facility Tobacco smoking stat [facility] Unknown if ever smoked [facility] Work Phone: Start: 1987 Sex Assigned At Female F [facility] Start: 10-29-2022 Tobacco smoking stat [facility] Smokes tobacco daily [facility] End: 04-03-2020 History of tobacco use Cigarette Smoker [facility] Start: 2020 End: 10-29-2022 Cigarettes smoked current (pack per day) - Reported 0.5 [facility] Start: 10-29-2022 Tobacco use and exposure Smokeless tobacco non-user [facility] Start: 04-15-2023 Alcohol intake Current non-dr sole edge inker machine of alcohol (finding) [facility] Start: 2020 End: 04-15-2023 Tobacco use panel [facility] Childcare Unknown [facility] Start: 1985 Sex Assigned At Not on file P [facility] Medical Equipment Procedure Code Equipment Code Equipment Origin al Text Equipment Identifier Dates Lux-Dx-06/05/2020 [id number] Start: 06-05-2020 Note 04-15-2023 Telephone Encounter - Rhea Perez RN - 04/15/2023 4:11 PM EST Note Date & Type Note Facility 04-15-2023 Miscellaneous Notes Formattin g of this note might be different from the original. Patient saw [facility] in office today for pre-op clearance. [facility] had wanted to know if eliquis needed held for procedure and, if so, how long. Another nurse had left a VM. Staff from dr. Slade's office returned call. She is going to check with dr. Slade and call us back. Looks like [facility] sent clearance letter today saying okay to hold for 48 hours. documented in this encounter [facility] Telephone encounter Note 04-15-2023 Telephone Encounter [...] Slade and call us back. Looks like [facility] sent clearance letter today saying okay to hold for 48 hours. [facility] History of Present illness Narrative 04-15-2023 Rhea Moreno APRN-PLUGMAN - 04/15/2023 12:30 PM EST Note Date & Type Note Facility 04-15-2023 History of Present illness Narrative Ariel Salas Date of visit: 04/15/2023 Date of : 1985 Age: 38 y.o. Patient Active Problem List Diagnosis Near syncope SOB (shortness of breath) Mass of subcutaneous tissue of back Lipoma of back Pyelonephritis Atrial flutter ([facility]) Paroxysmal atrial fibrillation ([facility]) Status post placement of implantable loop recorder - [employer] Preop cardiovascular exam No Known Allergies Current [...] Complaint Patient presents with Pre-op Exam ov-pre dv-moiwqtspz-ftohbvcn-dr slade [id number] History of Present Illness Ariel Salas is a 38-year-old female past medical history of vasovagal syncope, prior TIA with renal infarct in 2020, paroxysmal atrial flutter with CHADS2 Vasc score of 3 on apixaban, [employer] implanted loop recorder Patient presents today for routine follow-up and preoperative risk stratification She will be having a uterine ablation at [facility] later this month She does notice [...] Medical History: Diagnosis Date Anxiety Atrial fibrillation ([facility]) Dental disease lower dentures Depression Endometriosis Leaky heart valve Low blood pressure Near syncope Seasonal allergies Stroke ([facility]) 03/27/2020 TIA TIA (transient ischemic attack) Visual impairment glasses No data recorded No data recorded No data recorded Past Surgical History: Procedure Laterality Date DILATION AND CURETTAGE OF UTERUS 05/2017 EXCISION LIPOMA Left 07/27/2018 Performed by Stan Dee MD at [facility] OVARIAN CYST REMOVAL 04/2018 Family History Problem [...] of TIA / renal infarct in 2020 [employer] implanted loop recorder Patient is low risk for upcoming surgery, okay to hold apixaban 48 hours prior to procedure and resume as soon as possible once deemed safe postprocedure. Continue remote monitoring Of her loop recorder, she has had brief runs of atrial flutter. Six-month follow-up in [place] with Dr. Pedersen - OLMAN Damon 04/15/23 2:44 PM Patient was seen when Dr Paz was present and immediately available in office suite. TODAYS ORDERS Orders Placed This Encounter Procedures POCT EKG FOLLOW UP Return in about 5 months (around 09/15/2023). PCP: OLMAN DURAN Referring Physician: OLMAN Duran [address] [place] [address] OLMAN Damon 04/15/23 1444 documented in this encounter [facility] Clinical Note 02-15-2023 Note Date & [...] at home: Medicines ? Take or apply atus-nwr-lyxerae and prescription medicines only as told by [...] provider. Document Revised: 05/24/2020 Document Reviewed: 05/24/2020 [employer] Patient Education ? 2022 [employer] [facility] Clinical Note 07-15-2022 Note Date & [...] pathology results. Trevon Pruitt M.D. JOB #: [id number] [Electronically Signed on: 07/16/2022 11:39 EDT] Trevon Pruitt MD [Verified on: 07/16/2022 11:39 EDT] Trevon Pruitt MD [Transcribed on: 07/15/2022 12:05 EDT] [facility] Medication management note 05-18-2022 Note Date & Type Note Facility 05-18-2022 Note Entered by Bharti Hernandes on May 18, 2022 08:25:49 EDT From: Radha Hernandes To: [facility] [id number] Sent: 05/18/2022 08:25:49 EDT Subject: Medication Management Not Approved: Refill not appropriate, proposed to provider ethinyl estradiol-etonogestrel (ETONOGESTREL-EE VAGINAL RING) INSERT 1 RING VAGINALLY FOR 21 DAYS, THEN REMOVE FOR 7 DAYS, OR DIRECTED Qty: 3 unknown unit Days Supply: 84 Refills: 0 Substitutions Allowed Route To Pharmacy - [facility] [id number] Signed by Radha Hernandes From: [facility] [id number] To: Sajan HUGHES, Lashell Gifford CNP Sent: [...] Refills: 0 Substitutions Allowed Notes from Pharmacy: [facility] Evaluation note Note Date & Type Note Facility Evaluation note No assessment information [facility] Work Phone: Evaluation note Note Date & Type Note Facility Evaluation note Diagnosis Preop examination- Primary Unspecified pre-operative examination Paroxysmal atrial fibrillation ([facility]) Atrial fibrillation Near syncope Atrial flutter, unspecified type ([facility]) documented in this encounter [facility] [...] and Reason for Visit Chief Complaint N63.25 Chief Complaint Unknown Unknown Additional Source Comments INFORMATION SOURCE (unrecogn ized section and content) DATE CREATED AUTHOR 08/09/2018 [facility] DATE CREATED AUTHOR AUTHOR'S ORGANIZ ATION 01/13/2019 [facility] DATE CREATED AUTHOR AUTHOR'S ORGANIZ ATION 03/27/2020 [facility] DATE CREATED AUTHOR AUTHOR'S ORGANIZ ATION 04/16/2023 [facility] DATE CREATED AUTHOR AUTHOR'S ORGANIZ ATION 05/04/2023 [facility] DATE CREATED AUTHOR AUTHOR'S ORGANIZ ATION 05/06/2023 [facility] DATE CREATED AUTHOR AUTHOR'S ORGANIZ ATION 05/13/2023 [facility] d[facility] Specialists EPIC Care Teams (unrecognized sec tion and content) Team Status: Inactive Member Role Status Dates Trevon Pruitt MD Attending Provider Active [employer] Relationship Specialty Start Date End Date Lashell Moeller APRN-CNP [address] [place] [id number] PCP - General Family Medicine 01/22/21 [employer] Relationship Specialty Start Date End Date Lashell Moeller APRN-CNP [address] [place] [id number] PCP - General Family Medicine 01/22/21 Team Status: Inactive Member Role Status Dates Juan Slade Attending Provider Active Start: Viridiana mar 2023 End: April 07, 2023 Team Status: Inactive Member Role Status Dates Juan Slade Attending Provider Active Start: [facility] 2023 End: April 30, 2023 Goals (unrecognized section and content) Goals may be documented in a n alternate sectionNot on filedocumented as of this encounterNot on filedocumented as of this encounterGoals may be documented in an alternate section Reason for Visit (unrecogniz ed section and content) Reason Comments Pre-op Exam ov-pre op-clearance- ablation-dr slade [id number] Reason Onset Date Comments Surgical Or [...] BE BASED ON THE PRIMARY CLINICAL RECORDS. [employer] provides no warranty or guarantee of the accuracy or completeness of information in this document.
[2023-06-23 10:13] LABS: Age Gdln ACOG Testing Note (.); HPV Aptima Negative (Negative); IGP, Aptima HPV, rfx 16/18,45 Note (.)
== END 2023-06-16 20:45 | disposition home or self-care (01) ==
LOC: LAB 20:44
PROVIDERS: Visit Provider Physician Assistant
DX: Z01.419 Encounter for gynecological examination (general) (routine) without abnormal findings (principal)
CPT/HCPCS: 87624; G0145

== ENCOUNTER 2024-01-19 06:42 | Emergency (ER) | payer OTHER, SELFPAY ==
--- OUTSIDE RECORDS SUMMARY | 2024-01-19 06:50 | XMS_ITS | CCD ---
Author Organization [facility] Care Team Providers Care Systems Engineering Manager Name Role Phone DELON DE LA CRUZ Attending Unavailable DELON DE LA CRUZ Consulting Unavailable DELON DE LA CRUZ Admitting Unavailable CHERYL DEGROOT Consulting Unavailable ADILIA PEREZ Attending Unavailable ADILIA PEREZ Consulting Unavailable ADILIA PEREZ Admitting Unavailable OSMAR FLORES Primary Care Unavailable Suzi Hernandez Consulting Unavailable MD Trevon Pruitt Attending Provider Sajan PRACTICE CLINICIAN-SURFACER OPERATOR, Lashell Primary Care Provider RHEA MORENO Attending Unavailable SAJAN, LASHELL Referring Unavailable SAJAN, LASHELL Primary Care Unavailable Juan Slade Attending Provider VioletProsper palmay Admitting Unavailable Juan Slade Attending Unavailable Juan Slade Attending Unavailable Juan Slade Admitting Unavailable Trevon Pruitt Attending Unavailable Trevon Pruitt Admitting Unavailable JUAN SLADE Attending Unavailable JUAN SLADE Attending Unavailable AUGUSTINE GRAYSON Attending Unavailable JUAN SLADE Attending Unavailable Ezekiel Wasserman Attending Unavaila ble Sajan HOUSING GRANT ANALYST-C, Lashell A Primary Care Unavailable Ezekiel Wasserman Admitting Unavaila ble Sajan HOUSING GRANT ANALYST-C, Lashell A Primary Care Unavailable Sajan HOUSING GRANT ANALYST-C, Lashell A Admitting Unavailable Sajan HOUSING GRANT ANALYST-C, Lashell A Attending Unavailable Sajan HOUSING GRANT ANALYST-C, Lashell A Primary Care Unavailable Sajan HOUSING GRANT ANALYST-C, Lashell A Attending Unavailable CHRISTIE MCKEON Attending Unavailable CHRISTIE MCKEON Referring Unavailable SAJAN, LASHELL Primary Care Unavailable DELON PEDERSEN Attending Unavailable SAJAN, LASHELL Referring Unavailable SAJAN, LASHELL Primary Care Unavailable SAJAN, LASHELL Primary Care Unavailable ISELA NOLASCO Attending Unavailable Allergies Allergy Classification Reported Allergen(s) Allergy Type Date of Onset Reaction(s) Facility (1 source) No Known Medication Allergies; Translations: [No Known Medication Allergies] Propensity to adverse reactions to drug (disorder) [facility] Repository Medications Current Medications Medication Drug Class(es) Dates Sig (Normalized) Sig (Original) acetaminophen 325 mg oral tablet (2 sources) Start: 07-27-2018 acetaminophen (TYLENOL) tablet 650 mg apixaban 5 mg oral tablet (2 sources) Factor Xa Inhibitor Start: 11-30-2022 take 1 tablet by mouth once daily at bedtime apixaban (ELIQUIS) 5 mg tablet Indications: Atrial flutter, unspecified type ([facility]) TAKE ONE TABLET BY MOUTH EVERY MORNING AND BEFORE BEDTIME 180 tablet 0 11/30/2022 Active levonorgestrel 0.249449 mg/hr intrauterine system (2 sources) Progestin, Progestin-containi [...] Problem Classification Problem Date Documented Date Episodic/Chronic Abdominal pain (3 sources) Left lower quadrant pain; Translations: [Abdominal pain] Onset: 11-29-2023 Episodic Cardiac dysrhythmias (9 sources) Paroxysmal atrial fibrillation; Translations: [Paroxysmal atrial [...] unspecified; Translations: [FEVER UNSPECIFIED] Onset: 05-15-2019 Episodic Fracture of upper limb (1 source) Displaced fracture of middle third of navicular [scaphoid] bone of right wrist, subsequent encounter for fracture with nonunion; Translations: [Displaced 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) bone of right wrist, subsequent encounter for fracture with nonunion] Onset: 02-02-2023 Episodic Other and unspecified benign neoplasm (2 sources) Lipoma of back; Translations: [Benign lipomatous neoplasm of skin and subcutaneous tissue of trunk] Onset: 08-08-2018 08-08-2018 Episodic Other lower respiratory disease (4 sources) Shortness of breath; Translations: [SHORTNESS OF BREATH] Onset: 05-11-2019 Episodic Other lower respiratory disease (2 sources) Dyspnea; Translations: [Shortness of breath] Onset: 06-24-2017 06-24-2017 Episodic Other lower respiratory disease (1 source) Shortness of breath Onset: 08-18-2023 Episodic Other skin disorders (2 sources) Mass of subcutaneous tissue of back; Translations: [Localized swelling, mass and lump, trunk] Onset: 06-21-2018 06-21-2018 Episodic Syncope (5 sources) Near syncope; Translations: [Syncope and collapse] Onset: 06-22-2017 04-15-2023 Episodic Urinary tract infections (2 sources) Pyelonephritis; Translations: [Tubulo-interstitia l nephritis, not specified as acute or chronic] Onset: 04-02-2020 04-02-2020 Episodic Results Test Name Value Interpretation Reference Range Facility CBC AND AUTO DIFFon 11-29-19 ABSOLUTE BASOPHIL 0.1 X10E9/L Normal 0[facility]0-0.2 [facility] Comment on above: Performed By: #### C BCA, CMP #### [facility] ([id number]) [address] [place] [address] 32637 ABSOLUTE NEUTROPHIL 4.6 X10E9/L Normal 1.5-6.6 [facility] Comment on above: Performed By: #### C HINA, CMP #### [facility] ([id number]) [address] [place] [address] 97172 Basophils/100 WBC (Bld) 1.5 % Normal [facility] Comment on above: Performed By: #### C HINA, CMP #### [facility] ([id number]) [address] [place] [address] 82126 Eosinophils (Bld) [#/Vol] 0.2 10*3/uL Normal 0.0-0.4 [facility] Comment on above: Performed By: #### C HINA, CMP #### [facility] ([id number]) [address] [place] [address] 43114 Eosinophils/100 WBC (Bld) 2.1 % Normal [facility] Comment on above: Performed By: #### C HINA, CMP #### [facility] ([id number]) [address] [place] [address] 67941 Erythrocyte distribution width (RBC) [Ratio] 13.1 % Normal 11.5-15.0 [facility] Comment on above: Performed By: #### C HINA, CMP #### [facility] ([id number]) [address] [place] [address] 03827 Hematocrit (Bld) [Volume fraction] 41.7 % Normal 35-47 [facility] Comment on above: Performed By: #### C HINA, CMP #### [facility] ([id number]) [address] [place] [address] 10581 Hemoglobin (Bld) [Mass/Vol] 14.2 g/dL Normal 11.7-15.5 [facility] Comment on above: Performed By: #### C BCA, CMP #### [facility] ([id number]) [address] [place] [address] 25536 Lymphocytes (Bld) [#/Vol] 4.1 10*3/uL High 1.0-3.5 [facility] Comment on above: Performed By: #### C HINA, CMP #### [facility] ([id number]) [address] [place] [address] 10298 Lymphocytes/100 WBC (Bld) 42.0 % Normal [facility] Comment on above: Performed By: #### C HINA, CMP #### [facility] ([id number]) [address] [place] [address] 67813 MCH (RBC) [Entitic mass] 30.2 pg Normal 27-34 [facility] Comment on above: Performed By: #### C HINA, CMP #### [facility] ([id number]) [address] [place] [address] 30683 MCHC (RBC) [Mass/Vol] 34.1 g/dL Normal 32-36 [facility] Comment on above: Performed By: #### C HINA, CMP #### [facility] ([id number]) [address] [place] [address] 55563 MCV (RBC) [Entitic vol] 89 fL Normal 80-100 [facility] Comment on above: Performed By: #### C BCA, CMP #### [facility] ([id number]) [address] [place] [address] 92024 Monocytes (Bld) [#/Vol] 0.7 10*3/uL Normal 0-0.9 [facility] Comment on above: Performed By: #### C BCA, CMP #### [facility] ([id number]) [address] [place] [address] 80291 Monocytes/100 WBC (Bld) 7.3 % Normal [facility] Comment on above: Performed By: #### C HINA, CMP #### [facility] ([id number]) [address] [place] [address] 67199 Neutrophils/100 WBC (Bld) 47.1 % Normal [facility] Comment on above: Performed By: #### C BCA, CMP #### [facility] ([id number]) [address] [place] [address] 47893 Platelet mean volume (Bld) [Entitic vol] 6.5 fL Low 7-12 [facility] Comment on above: Performed By: #### C HINA, CMP #### [facility] ([id number]) [address] [place] [address] 45185 Platelets (Bld) [#/Vol] 367 10*3/uL Normal 150-450 [facility] Comment on above: Performed By: #### C BCA, CMP #### [facility] ([id number]) [address] [place] [address] 53942 RBC COUNT 4.71 X10E12/L Normal 3.80-5.20 [facility] Comment on above: Performed By: #### C BCA, CMP #### [facility] ([id number]) [address] [place] [address] 04855 WBC (Bld) [#/Vol] 9.8 10*3/uL Normal 4.0-11.0 [facility] Comment on above: Performed By: #### C BCA, CMP #### [facility] ([id number]) [address] [place] [address] 41611 [address]IVE METABOLIC PANE [facility] 11-29-2023 Albumin [Mass/Vol] 4.0 g/dL Normal 3.2-5.3 [facility] Comment on above: Performed By: #### C BCA, CMP #### [facility] ([id number]) [address] [place] [address] 82520 ALP [Catalytic activity/Vol] 66 U/L Normal 39-130 [facility] Comment on above: Performed By: #### C BCA, CMP #### [facility] ([id number]) [address] [place] [address] 43814 ALT [Catalytic activity/Vol] 19 U/L Normal 0-31 [facility] Comment on above: Performed By: #### C BCA, CMP #### [facility] ([id number]) [address] [place] [address] 26880 Anion gap [Moles/Vol] 10 mmol/L Normal 5-15 [facility] Comment on above: Performed By: #### C BCA, CMP #### [facility] ([id number]) [address] [place] [address] 60779 AST [Catalytic activity/Vol] 19 U/L Normal 0-41 [facility] Comment on above: Performed By: #### C BCA, CMP #### [facility] ([id number]) [address] [place] [address] 05637 Bilirubin [Mass/Vol] 0.4 mg/dL Normal 0.3-1.2 [facility] Comment on above: Performed By: #### C BCA, CMP #### [facility] ([id number]) [address] [place] [address] 04044 Calcium [Mass/Vol] 9.3 mg/dL Normal 8.5-10.5 [facility] Comment on above: Performed By: #### C BCA, CMP #### [facility] ([id number]) [address] [place] [address] 96436 Chloride [Moles/Vol] 101 mmol/L Normal 98-109 [facility] Comment on above: Performed By: #### C BCA, CMP #### [facility] ([id number]) [address] [place] [address] 32442 CO2 [Moles/Vol] 27 mmol/L Normal 22-32 [facility] Comment on above: Performed By: #### C BCA, CMP #### [facility] ([id number]) [address] [place] [address] 80341 Creatinine [Mass/Vol] 0.80 mg/dL Normal 0.40-1.00 [facility] Comment on above: Result Comment: METH OD TRACEABLE TO IDMS STANDARD Performed By: #### C BCA, CMP #### [facility] ([id number]) [address] [place] [address] 97354 eGFR (CKD-EPI) NON-RACE DEPENDENT >90 Normal >59 [facility] Comment on above: Result Comment: Reported eGFR is based on the CKD-EPI 2020 equation that does not use a race coefficient. Performed By: #### C BCA, CMP #### [facility] ([id number]) [address] [place] [address] 04070 Glucose [Mass/Vol] 96 mg/dL Normal 65-99 [facility] Comment on above: Performed By: #### C BCA, CMP #### [facility] ([id number]) [address] [place] [address] 21075 Potassium [Moles/Vol] 3.5 mmol/L Normal 3.5-5.0 [facility] Comment on above: Performed By: #### C BCA, CMP #### [facility] ([id number]) [address] [place] [address] 05466 Protein [Mass/Vol] 7.3 g/dL Normal 6.0-8.0 [facility] Comment on above: Performed By: #### C BCA, CMP #### [facility] ([id number]) [address] [place] [address] 52189 Sodium [Moles/Vol] 138 mmol/L Normal 134-146 [facility] Comment on above: Performed By: #### C BCA, CMP #### [facility] ([id number]) [address] [place] [address] 63422 Urea nitrogen [Mass/Vol] 16 mg/dL Normal 5-23 [facility] Comment on above: Performed By: #### C BCA, CMP #### [facility] ([id number]) [address] [place] [address] ABDOMEN AND PELVIS W CONT on 11-29-2023 CT ABDOMEN AND PELVIS W CONT CT ABDOMEN AND PELVIS W CONT CT ABDOMEN AND PELVIS W CONT CLINICAL HISTORY:LLQ abdominal pain COMPARISON: 04/02/2020. TECHNIQUE: CT abdomen and pelvis was performed utilizing the standard protocol following the uneventful administration of 100 cc Omnipaque 300 nonionic intravenous contrast. Coronal and sagittal reformatted images were generated and reviewed. Automated exposure control was utilized. FINDINGS: No acute findings lower thorax. Unremarkable liver, gallbladder, spleen, adrenal glands, pancreas, kidneys. No acute appearing occlusion the major visceral vasculature. Irregular appearance of the uterus with apparent endometrial synechiae and dilated areas of endometrium. Unremarkable ovaries. No dilatation or wall thickening the bowel. Normal appendix. No acute appearing occlusion the major visceral vasculature. No aggressive osseous lesions. Transitional lumbosacral anatomy. IMPRESSION: 1. No convincing acute process within the abdomen or pelvis. 2. Apparent endometrial synechiae /Asherman syndrome, correlate clinically. All CT scans at this facility use dose modulation, iterative reconstruction, and/or weight based dosing when appropriate to reduce radiation dose to as low as reasonably achievable. Finalized by Luiz Hwang MD on 11/29/2023 8:52 PM Normal [facility] HCG ( test) Ql (U)o n 11-29-2023 Beta HCG ( test) Ql (U) Negative Normal NEG [facility] Comment on above: Performed By: #### 2 106-3 #### [facility] ([id number]) [address] [place] [address] 04355 URN MACROSCOPIC NURon 2023 BILIRUBIN TARIK Negative Normal NEG [facility] Comment on above: Performed By: #### N UM #### [facility] ([id number]) [address] [place] [address] 30235 BLOOD/HGB TARIK Trace Abnormal NEG [facility] Comment on above: Performed By: #### N UM #### [facility] ([id number]) [address] [place] [address] [place] [address] GLUCOSE TARIK Negative Normal NEG [facility] Comment on above: Performed By: #### N UM #### [facility] ([id number]) [address] [place] [address] [place] [address] KETONES TARIK Negative Normal NEG [facility] Comment on above: Performed By: #### N UM #### [facility] ([id number]) [address] [place] [address] [place] [address] LEUKOCYTE ESTERASE TARIK Negative Normal NEG [facility] Comment on above: Performed By: #### N UM #### [facility] ([id number]) [address] [place] [address] [place] [address] NITRITE TARIK Negative Normal NEG [facility] Comment on above: Performed By: #### N UM #### [facility] ([id number]) [address] [place] [address] [place] [address] PH TARIK 7.0 Normal 5.0-8.5 [facility] Comment on above: Performed By: #### N UM #### [facility] ([id number]) [address] [place] [address] 30859 PROTEIN TARIK Negative Normal NEG [facility] Comment on above: Performed By: #### N UM #### [facility] ([id number]) [address] [place] [address] [place] [address] SPECIFIC GRAVITY TARIK 1.025 Normal 1.003-1.035 [facility] Comment on above: Performed By: #### N UM #### [facility] ([id number]) [address] [place] [address] UROBILINOGEN TARIK 0.2 eu/dL Normal <1.1 [facility] Comment on above: Performed By: #### N UM #### [facility] ([id number]) [address] [place] [address] Outside Recordson 09-01-2023 Outside Records [id number]#1.00OT GTIFF [facility] Outside Recordson 05-03-2023 Outside Records [id number]#1.00OTG TIFF [facility] Abner 04-30-2023 L Specimen: [id number] Received: 05/03/23 Status: SALIMA Kilpatrick Num: [id number] Spec Type: Surgical Subm Dr: Juan Slade Tissues: A Fallopian Tube - Sterilization (BILATERAL FT) Procedures: HE/2, Gross/Micro L2 Age/ Patient Sex Location Account Attending Physician Ariel Salas 38/F LABELL [id number] Juan Slade SPEC NUM: [id number] RECD: 05/03/23 STATUS: SALIMA KILPATRICK NUM: [id number] CRISTINA: 04/30/[address]: Juan Slade ENTERED: 05/03/[address] [facility] DR: Ajit,Lab SPEC TYPE: Surgical DEPT: JEFF [...] an unremarkable, pinpoint lumen on cut section. Billet Recorder sections are submitted in two cassettes labeled A1-A2. CPT Codes 35369 Specimen: [id number] Received: 05/03/23 Status: SALIMA Kilpatrick Num: [id number] Spec Type: Surgical Subm Dr: Juan Slade Tissues: A Fallopian Tube - Sterilization (BILATERAL FT) Procedures: SERINA/Shaina Goins/James L2 Patient: Ariel Salas [id number] (Continued) Signed (signature on file) Micheal Napier MD 05/04/23 1431 [facility] POCT EKGOrdered By: Keily Herrera on 04-15-2023 [facility] Abner 04-07-2023 L Specimen: [id number] Received: 04/08/23 Status: SALIMA Kilpatrick Num: [id number] Spec Type: Surgical Subm Dr: Juan Slade Tissues: A Endometrium - Biopsy (EMBX) Procedures: HE/2, Gross/Micro L4 Age/ Patient Sex Location Account Attending Physician Ariel Salas 38/F [facility] [id number] Juan Slade SPEC NUM: [id number] RECD: 04/08/23 STATUS: SALIMA KILPATRICK NUM: [id number] CRISTINA: 04/07/23- SUBM DR: Juan Slade ENTERED: 04/08/23-[address]: Ajit,Lab SPEC TYPE: Surgical DEPT: [...] in one cassette labeled A1. CPT Codes 52341 Specimen: [id number] Received: 04/08/23-1239 Status: SALIMA Kilpatrick Num: [id number] Spec Type: Surgical Subm Dr: Juan Slade Tissues: A Endometrium - Biopsy (EMBX) Procedures: HE/2, Gross/Micro L4 Patient: Ariel Salas [id number] (Continued) Signed (signature on file) Micheal Napier MD 04/10/23 1211 [facility] Coding Summaryon 03-04-2023 Coding Summary HTMLBase 64 CvfdtkozTDh2mBs+PGhlYWQ+ UK2QKEIbN05hdAZoxI6yU7AC TElOSywgQVBQTElOSyIgbmFt XM7gqIZoGLHc IC8+HN7wZAWnKjcuoAHqq1F3 jUI0W92rvn3nZMiorTH1XHJu BrIvojave7rvaXa0KIpcEwly OyBt FJFplX10TYD2fW45Me63fSDk qTCyx9dkdBj6TaLsAQDuBVM8 rRxfZZdqv8JrPYWyY51uiMJe c2U6 OUFijAubqAYkTxHkxDN1bU4n IMtplkxrw9hwbndfSlw5jf27 tPAgj2D8wFG1T9PksqW9JYKt bGQg QvteqNCVfE3sxqzhl5dbdhwy BzHrVKTcWRo9SFi3OMVqrGhi EtIpHP76NTE5UXDoimEgN2Ck LWFs qWxtUeQ5n5P2Ww8OV0LIVnmn Z9INUFHJNHewmYY+ZD07go89 K7ZeIsjgQyo6VCPmDBL6iSS7 aD0n GOQbOEwpg7W3qLH6X9AvwqOm jg7ze3yvWNOtWCcqN34nlSYh w2W0SDWkeWH6IBFbqBaqReDt aG93 Oyc+GHLyrGmiu4EzUbcqu4cn n3eqpLv0PidzIZLkvgUpsYfb SSS6d4RbLj0nOOZfcIX9kAM9 aD0i HnDpVxM3UFzsU691VxQxpSHu ZuxuU80yK7YccKG+PHRyPjx0 WVKvuBomMW3kA1NgEHEmcbdy bGVm aNsvFL4cIKJtctfhOHMjoW0q IMCeR2g7GbXvLbE3FYroE9Wg EBPkvgxmAv53bC5wHmDcPeA2 MGlu R3XnviU4ZQNduQVzSPghCBU7 U57jy7V0WSMdOQFhQIR0mTI9 hK6yiTfjurujgNCzxKbqprDw dGlj UFmbUKoxR142ECDnkMxmEjTf ZGluZyBEYXRlOiAgMDEvMjUv MjAyNDwvdGQ+WFQcUMW1kFdo PSAn uPGxXStbHt1lfZwepMkoJH9v DBSfneqbTQKkcH0kVRQiqUHc nLzqCZ3yRBBpczzny974RkPj MHB0 SEZcmWRbK9ZywJ7gUgFvLBRr JWKnF1BidUIkUNglB389GSor OkJ5OSLzivAjU0NzIFUurMcp OiB0 v8L9Fx3Ch0IsypddU1NsrBLx WjIvSoglKKl9R2CkCrxzlQD+ GO72YXTsFA08BKz5MVV0mHfw PSdi TUQcD8KpmR4hYnKoAUKrZWRo Oyc+PHRhYmxlIHdpZHRoPScx WNBcIuWmnPfpJL0sAj3wBCDh LWNv vXwglHYxNnNld8chMEEzVTnl AB2quAybW0GkoIU0WNShw4h2 Nd21S39eX9ZibIY+PGNvbCB3 aWR0 kM1kXnCfKwK4SRhyO097RpXu tSLgWtsth7dcu5sjsUe8OvU0 ZABxodZzrCeaKTA1d2LbSf10 Y29s IHdpZHRoPSIxNSUiIHZhbGln bk6crT0gUn9+SKTgfPK6xDS2 uT6uBqBeFhK0ZYexN496NcKq cCIv Wpgtp6wci6euiYi5KsAgLLEf yjJksPopNNN0i1IwYc50C3Cv xUuet3SyGha9uy25wAKxh4T1 bGU9 B6QhRCVdbqzpwZPxcJsjPA0y RDTizhsqFRWdjQ8dPYLvC8k6 XcOuWwO1QYavC2PbreQ1LYMv bGQg HHTobJWZyZ7yglopl1kvvmaj HlEmCSHhKZh2AQd9HCFspDik WfRoBTG0PyE7USL1pSGvbB9d bGln suzhsU9oPuy+YXZ8eZAftPRV LL3eSvhrtKZ+PSSlLPR1jHqr OKkvEJNsvB4eYSLfP2y6HrKg LjA1 UYrnI0WrjaI1SRQogQNwXLWv iZHWjY8xvsgcs9zjhaozAdEk DDFeOBr3LDe7OFGfyAgiVeWt ZWZ0 XlA9QIU7yTYddJ9fiEcusdul mF4uYhl+ImtiiKgtSNT9PKj0 K4FzJka0OOWgjOrsFD6opYKd ZGlu Cq2kcMnfdWxvGZ9gVGWnnvns o984XbNey2seMSOvkCLaBAln XMT3Z20xk9X2THXwQAYxAII6 dGV4 cI6qwLnnqsaalLVhoCuztzPv lXfrHQgtMIenY901VUEwgDxp BxApOZg4U1WeIhc7RLCznKcj ZT0n nGFiGAnnGu8upQnymOwmRW2j VGWwwhbbb268HsKrb7asYVMi mVOiDGpzOFC2O70vc1T4HUFj MDAw UDW5pFP4vV4ymDobspxwzQHn qPlgaxSltDmsVWacRGhvW525 WULrxItbFdZlcUv2G1FmDsg9 ZCBz pUqoDN4utGTjPWzaZt2jiUws hLjwBI5xEEGsouhvl422DsRo c4jcGGTxfLWqYXjlVBS3L37x b3I6 JWBbWGEiUPU3iYD4lG4esBzw bjogbGVmdDsgdmVydGljYWwt QHioZ164RNQtePvdVyXrqVlb bnQg HOiaCCd3B8ZyJzpbkEQ+PC90 IZAsCP14iJHxdHZbm9sogLf3 ExFpOXOwTSR1iLuoZCubn0Ld ZXIt M91btYQhq9O6QDKlkPsrxXYb BhOnnMR0nU8pCHtnomtlp5wy mcerRudqh4btxw79rW73U90x IHdp OSThHBXkWXLpRJDeoMbatm6a oZ4gSa8+FDQbqZI1iKH4pV0m QHAxPrC5ITxvA556XvXbhOOr Pjxj v4fwd1cbvVo5TsH4PIPhssAa zJnsFGT1s1DhOr57Z68mHWed CDXdSDHiTERiXTIbhXjfcm6j dG9w Ii8+JHHygXF3tIS3bN2aZvSy AjF9YLkfI109WcXjiFZwItph E25mP4UwfGD+TYQiHli0GWVo dHls QO9ftTKvICujXc4hZUT8FmOg NrQyGXuwH3EyHXOdykwkodgj gYC3EPYfBGCglD00Zc9bgWsg MTBw tYZFrS7lmadrl6moofvnMrGq LMQzZOv8WPt5MJKjwUtwEbNa QKH5YlU5NFB6kEEzeL0ctYrl bjog vN7kU4PqZHLyzmagFp24fY3u PhKaFcP6ZUwkUmf+TUlMTEVS LCBTSEFXTkVMTEUgRTwvdGQ+ PHRk EFP8wSmpVNqvWXWsfP3wQHMa J6x0GsEdQjH7DSfuD3JnARLg mbanPa31sW3xOsIwFrY3BIal O2Zv kwM8UCUaoAWbKOliVPM7J51q h0B0FEHfHQJkFEP6sES3gE6r bGlnbjogbGVmdDsgdmVydGlj YWwt SXfyW452AEGzqZknUnZmPqMc RaP5QLh1I6KpKwx9WZVupKor WP2mkRPpFGkoWn5smXtrzYnx MC4w TAJagqnyYOIyaL8yTRFxqOCy oVuvIH1pOGTnzdlpv043TlUu VNT5RIXicGVyM3QauE7uDkKs MDAw KWSmF7DdxQPzPIzbT342TLzz ZoD4PDLdxyWnN5LrPYRhyCyp NvE9n1P1Si9rMGEIMTBmypxw dGQ+ CKDyPQU7rQdnUIvjSPUagD1z CTUrT2a1OmWhRdA8JLjtD8Pa XTRkfkdoPj94aI1kSbQfGeI2 MGlu C1RfswN8OKVlbHBrNHbuPDL5 D27vw2Y4DZZfWOOrDXC9aFA2 eQ5elOvgkiknxWNxoGyfjrNj dGlj ZQzuGEazD873OBLccMdcHgVD TUFMRTwvdGQ+MFPgVWN9wFtb PYuuPDKxjP8bAWOpF1c6PfDt LjA1 XXfvN0XiSFKylmflUz82nQ2y YkZhXzQ1XNklM8VdbjT3GHIq wCUtADkgCKS3P12ni4I2ZXTn MDAw HCH1gHJ9sP8boBtetdzmcMOn zDmcphVipWpyMLgkREgvG431 ONPluKlxJr4OUF56UC69C8Iw Pjwv dGFibGU+PHRhYmxlIHdpZHRo ALaoQMFkXfJpzRzjLT8zVw7v XJHiGMJizEoofAZaPcSoi7hb YXBz VInwOM5xfFcyP5FdmGV4DBTz u1g1Hv21N52wY3CgqUF+PGNv rWA5bXC7iN0nBfGbSuR8YThp Z249 CqVamTNiSplpg5rjy9hlfLw1 AnCuGVFigzJelXehFYU1t2Dw Ks46T66wQLbtQUIqQLUvPVEu IHZh yJlnrx8rdT6pAt4+PGNvbCB3 cNQ8hN4zAuLiZmV0VBzwD815 QwMywAWgRjctX70rC5VofBD+ PHRy Nvn5EVQcqRyuDY1dnJMcJSuv Ad7fUQQ2NkCfKoGkOQtnP3Nj MXUqobkasvtdoPW5XUFhYWKi aW47 Qa7maRuhDz8xEWZvHNR2IXNt wKBeH6LjqK2eWvXrEUYfDMWu I1PjwXYkQMcuY591LDsdXkN3 IHZl slGhG5CvKOZztRlrLjT7n6X2 Vd8KlIxadZGzKM3cFfLqPFs3 O6PgVuj6IOLzjKcvPE4erIQq ZGlu Fe9xjCfffVutKO8oPUCwpcwk g087LkWub5blAMKcfZYvNPtz PDF4A41dk2H6SPXdQVEtCTJ1 dGV4 uJ2tbZmftudhaHDpeYqwpeJe cDpcULnhWRjmK602HWOniTsg DwZIXrg4C4TyUwh8KYUqdOsx ZT0n iNJuQWepIs4voZawnNprRX0v IXIjbyxjj108BbTpf3lySAFw tSZnKZxhUYR8C43vm8L2VAPi MDAw DJV5tHS4uK9fbAxdyrpflJZy dTeamyXxbTycZXswCEbxR791 UPPsnRqaCp2QTea7C9MqOxc2 ZCBz zDlbHL9hrFUqOFjzWn0veCbz iGokTC0sTCSjnfzpn365LpZj l0juQXYpcOUbTHrbTIM9P28t b3I6 QEGnBOEgTFM9jZK0oT1fkCsh bjogbGVmdDsgdmVydGljYWwt STxcA663OSVjwLatHeRolAHz Ojwv dGQ+NU87kt20T2VpFjmgOgu6 ZRKvESH3tWK0jX3bGSCcZRfw a6T3fSL1A9ImmzKdjv5kg9oy YXBz ZTo (more content not included)... [facility] Patient Handouton 02-17-2023 Patient Handout Dermatology [...] instructions at home: ? Take or apply [id number] and prescription medicines only as told by [...] Reviewed: 11/20/2020 Elsevier Patient Education ? 2021 [employer] Normal [facility] ED Clinical Summaryon 2023 ED Clinical Summary [facility] ? Urgent Care [address] [id number] Clinical Summary PERSON INFORMATION Name: ARIEL SALAS Age: 37 Years Sex: FEMALE : 1985 MRN: Acct#: Visit Reason: Skin; RASH Arrival: 02/15/2023 11:21:04 Discharge: 02/15/2023 12:00:00 LOS: 000 00:39 Check In: 02/15/2023 11:21:04 Checkout: 02/15/2023 12:00:00 Address: [address] [place] [id number] PCP: Sajan HUGHES, Lashell Gifford PROVIDER INFORMATION Provider Role Assigned Unassigned Nallely Crow VEHICLE GLASS TECHNICIAN Nurse 02/15/2023 11:28:03 Ezekiel Wasserman ED JOSEPH 02/15/2023 11:30:29 VITALS INFORMATION Vital Sign Triage Latest Temperature Tympanic Temperature Temporal Artery Pulse Rate O2 Sat 98 % 98 % Respiratory Rate Blood Pressure /79 mmHg /79 mmHg MEDICAL INFORMATION Medications Given: Allergy Information: No Known Medication Allergies PHYSICIAN DOCUMENTATION DISCHARGE INFORMATION: Discharge Disposition: Home Discharge Location: Home PATIENT EDUCATION INFORMATION Instructions: Scabies, Adult Follow-Up: With: Address: When: Lashell Tanner [address] [place] [id number] Within 3 to 5 days Comments: Diagnosis [...] concerns. DIAGNOSIS: 1:Scabies Patient Understands: Yes - Patient/family/caregiver verbalizes understanding of instructions given Comment: Normal [facility] ED Patient Summaryon 024 ED Patient Summary [facility] ? Urgent Care [address] [place] [address] PATIENT DISCHARGE INSTRUCTIONS Patient Information Name: ARIEL SALAS Age: 37 Years Date of : 1985 Reason For Visit: Skin; RASH Arrival Time: 02/15/2023 11:21:04 Primary Care Physician: Lashell Tanner Attending Physician: Ezekiel Wasserman Comment: Patient Education With: Address: When: Lashell Tanner [address] [place] [id number] Within 3 to 5 days Comments: Diagnosis [...] develop this condition: ? Living in a prison or other extended care facility. ? Having [...] at home: Medicines ? Take or apply [id number] and prescription medicines only as told by [...] care provid (more content not included)... Normal [facility] Urgent Care [place] 024 Urgent Care Record [facility] ? Urgent Care [address] [id number] PATIENT DISCHARGE INSTRUCTIONS Patient Information Name: ARIEL SALAS Age: 37 Years Date of : 1985 [facility]: [id number] Reason For Visit: Skin; RASH Arrival Time: 02/15/2023 11:21:04 Primary Care Physician: Lashell Tanner Attending Physician: Ezekiel Wasserman Comment: Visit Diagnosis: Diagnoses This Visit Scabies (B86) Skin ([id number]) If you received any narcotics, sedation, or [...] legal documents With: Address: When: Lashell Tanner [address] [place] [phone] Within 3 to 5 days Comments: Diagnosis [...] and treatment you received today in the [facility] were for an urgent problem and are not intended as complete care. It is important for you to follow up with a doctor, nurse practitioner, or physician?s assistant community manager for ongoing care. If your symptoms [...] so we can reach you if necessary. [facility] has provided you with a complete list of medications post discharge. Please inform your primary health care nurse/provider of your visit and for further instruction on these medications. Any specific questions regarding your chronic medications and dosages should be discussed with your primary care physician(s) and/or pharmacist. New Medications [facility] [id number], [address], [place] [id number], [phone] cetirizine (ZyrTEC 10 mg oral tablet) 1 [...] then vomi (more content not included)... Normal [facility] MR WRIST RT WO CONTon 2022 MR WRIST RT WO CONT MR WRIST RT WO CONT HISTORY: Displaced 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) bone of right wrist, subsequent encounter for fracture with nonunion Pain. PROCEDURE: Routine noncontrast MRI of the right wrist Compared to December 09 FINDINGS: There is residual fracture deformity of the scaphoid with mild separation of fragments and cortical step off along what looks like a somewhat corticated ununited fracture line There is no convincing bone bridging There is edema throughout the proximal and distal fracture fragments and some mild fragmentation along the articular surface at the radioscaphoid articulation, probably involving the distal fracture segment There is some subtle irregularity and signal adjacent to the proximal volar margin of the capitate and lunate-capitate articulation with significant volar tilt of the lunate but no chris dislocation The signal of the carpal bones otherwise looks normal alignment signal of the distal radius and ulna looks normal The signal of the proximal metacarpals looks normal The there is not significant effusion or erosive change The triangular fibrocartilage and distal radial ulnar joint looks intact with mild ulnar negative variance Extensor carpi ulnaris tendon looks intact The look of the hamate looks intact There are mild degenerative changes There is not significant fluid along the tendon sheaths or fluid within the carpal tunnel No visible ganglion IMPRESSION: 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 along the fracture line Significant edema within the fracture fragments with mild cortical step off and separation and deformity There is mild fragmentation around the articular surface at the radioscaphoid articulation Avascular necrosis is a possibility but there does not appear to be chris collapse or fragmentation of the proximal ununited segment at this point There is significant volar tilt of the lunate without gross malalignment or significant effusion otherwise There is a small amount of fluid or synovial thickening at the lunate capitate articulation with cortical irregularity at the volar proximal margin of the capitate likely related to an impaction injury or some bone remodeling ---- Finalized by Loy Cuba MD on 02/03/2023 10:41 AM [facility] Reminder Messageson 01-21-20 Reminder Messages Entered by Palak López RN on January 20, 2023 13:38:33 EST order placed by PCP From: Palak López RN (General Surgery Clerical Pool ([facility])) To: General Surgery Clerical Pool ([facility]); Sent: 07/21/2022 14:02:43 EDT Show up: 01/20/2023 13:02:00 EST Subject: mammogram Reminder: Please call patient to: Please schedule patient for: repeat left breast diagnostic mamm Please ask patient to: Results Follow up Required for: Visit Summary For ARIEL SALAS Age: 37 years Sex: FEMALE : 1985 Address: [address] [place] [address], [phone] Home: Work: -- Primary Care Provider: Lashell Tanner Race: White Ethnicity: Not or Language: Sami Health Plan: 1?MEDICAID [facility], 2?MEDICAID [place] ODM Normal [facility] Lon 07-15-2022 L ---- Specimen: [id number] Received: 07/15/22 Status: SALIMA Kilpatrick Num: [id number] Spec Type: Surgical Subm Dr: Trevon Pruitt MD Tissues: A BREAST CORE NO CALCS (LT BREAST BX) Procedures: HE/3, Gross/Micro L4, CK5 6, ER, p63 Age/ Patient Sex Location Account Attending Physician Ariel Salas 37/F [facility] [id number] Trevon Pruitt MD SPEC NUM: [id number] RECD: 07/15/22 STATUS: SALIMA KILPATRICK NUM: [id number] CRISTINA: 07/15/[address] [facility] [address]: Trevon Pruitt MD ENTERED: 07/15/[address]: Bradley Haider SPEC TYPE: Surgical DEPT: [...] Time: 0 Formalin Fixation Time: 9.42 Specimen: [id number] Received: 07/15/22 Status: SALIMA Kilpatrick Num: [id number] Spec Type: Surgical Subm Dr: Trevon Pruitt MD Tissues: A BREAST CORE NO CALCS (LT BREAST BX) Procedures: HE/3, Gross/Micro L4, CK5 6, ER, p63 Patient: Ariel Salas [id number] (Continued) Specimen: [id number] Received: 07/15/22 (Continued) Signed (signature on file) Mary Jeffers MD 07/17/22 1057 Specimen: [id number] Received: 07/15/22 Status: SALIMA Kilpatrick Num: [id number] Spec Type: Surgical Subm Dr: Trevon Pruitt MD Tissues: A BREAST CORE NO CALCS (LT BREAST BX) Procedures: HE/3, Gross/Micro L4, CK5 6, ER, p63 Patient: Ariel Salas [id number] (Continued) Specimen: [id number] Received: 07/15/22 (Continued) Microscopic Description Two H E slides reviewed. The microscopic examination confirms the diagnosis. Immunostains for ER p53 and cytokeratin 5/6 are performed with adequate controls immunohistochemical and microscopic patents confirms the above diagnosis. Intradepartmental consultation with a second pathologist (JERRI) who agrees with the diagnosis. CPT Codes 11976, 18712, 93540k6 Specimen: [id number] Received: 07/15/22 Status: SALIMA Kilpatrick Num: [id number] Spec Type: Surgical Subm Dr: Trevon Pruitt MD Tissues: A BREAST CORE NO CALCS (LT BREAST BX) Procedures: HE/3, Gross/Micro L4, CK5 6, ER, p63 Patient: Ariel Salas [id number] (Continued) Signed (signature on file) Mary Jeffers MD 07/17/22 1057 [facility] CBC AUTO DIFFon 03-23-2020 Basophils (Bld) [#/Vol] 0.1 103/ul Normal 0.0-0.1 [facility] Comment on above: Performed By: #### C BC #### [facility] [address] [place] [address] Akin Aysha Basophils/100 WBC (Bld) 0.6 % Normal 0.2-2.0 [facility] Comment on above: Performed By: #### C BC #### [facility] [address] [place] [address] Akin Aysha Eosinophils (Bld) [#/Vol] 0.2 103/ul Normal 0.0-0.7 [facility] Comment on above: Performed By: #### C BC #### [facility] [address] [place] [address] Akin Aysha Eosinophils/100 WBC (Bld) 2.3 % Normal 0.9-7.0 [facility] Comment on above: Performed By: #### C BC #### [facility] [address] [place] [address] Akin Olmstead Erythrocyte distribution width (RBC) [Ratio] 12.2 % Normal 11.0-15.0 [facility] Comment on above: Performed By: #### C BC #### [facility] [address] [place] [address] Akin Aysha Hematocrit (Bld) [Volume fraction] 43.4 % Normal 36.0-48.0 [facility] Comment on above: Performed By: #### C BC #### [facility] [address] [place], [place] [id number] Akin Aysha Hemoglobin (Bld) [Mass/Vol] 14.4 g/dL Normal 12.0-16.0 [facility] Comment on above: Performed By: #### C BC #### [facility] [address] [place] [address] Akinenio Segundoen IG # 0.03 10e3/ul Normal 0.00-0.03 [facility] Comment on above: Performed By: #### C BC #### [facility] [address] [place], [place] [id number] Akin Aysha IG % 0.3 % Normal 0.0-0.5 [facility] Comment on above: Performed By: #### C BC #### [facility] [address] [place] [address] Akin Aysha Lymphocytes (Bld) [#/Vol] 3.8 103/ul Normal 1.2-3.8 [facility] Comment on above: Performed By: #### C BC #### [facility] [address] [place] [address] Akinenio Olmstead Lymphocytes/100 WBC (Bld) 37.3 % Normal 20.5-60.0 [facility] Comment on above: Performed By: #### C BC #### [facility] [address] [place] [address] Akinenio Olmstead MANUAL DIFF REQ NO Normal [facility] Comment on above: Performed By: #### C BC #### [facility] [address] [place], [place] [id number] Akinenio Segundoen MCH (RBC) [Entitic mass] 30.9 pg Normal 26.7-34.0 [facility] Comment on above: Performed By: #### C BC #### [facility] [address] [place] [address] Akinenio Olmstead MCHC (RBC) [Mass/Vol] 33.2 g/dL Normal 29.9-35.2 [facility] Comment on above: Performed By: #### C BC #### [facility] [address] [place], [place] [id number] Akin Aysha MCV (RBC) [Entitic vol] 93.1 fL Normal 81.0-99.0 [facility] Comment on above: Performed By: #### C BC #### [facility] [address] [place], [place] [id number] Akin Aysha Monocytes (Bld) [#/Vol] 0.9 103/ul Critically high 0.3-0.8 [facility] Comment on above: Performed By: #### C BC #### [facility] [address] [place], [place] [id number] Akin Aysha Monocytes/100 WBC (Bld) 8.7 % Normal 1.7-12.0 [facility] Comment on above: Performed By: #### C BC #### [facility] [address] [place], [place] [id number] Akin Aysha Neutrophils (Bld) [#/Vol] 5.2 103/ul Normal 1.4-6.5 [facility] Comment on above: Performed By: #### C BC #### [facility] [address] [place] [address] Akin Aysha Neutrophils/100 WBC (Bld) 50.8 % Normal 43.0-75.0 [facility] Comment on above: Performed By: #### C BC #### [facility] [address] [place], [place] [id number] Akin Aysha Platelet mean volume (Bld) [Entitic vol] 8.6 fL Critically low 9.5-13.5 [facility] Comment on above: Performed By: #### C BC #### [facility] [address] [place], [place] [id number] Akin Aysha Platelets (Bld) [#/Vol] 347 103/ul Normal 150-450 [facility] Comment on above: Performed By: #### C BC #### [facility] [address] [place], [place] [id number] Akin Asyha RBC (Bld) [#/Vol] 4.66 106/ul Normal 4.20-5.40 [facility] Comment on above: Performed By: #### C BC #### [facility] [address] [place], [place] [id number] Akin Aysha WBC (Bld) [#/Vol] 10.2 103/ul Normal 4.0-11.0 [facility] Comment on above: Performed By: #### C BC #### [facility] [address] [place], [place] [id number] Akin Aysha CT STROKE HEAD WOon 03-23-[address] [...] by: SUZI SAID Date: 2020-03-22 23:46 Normal [facility] CTA HEAD WO W CONon 03-23-19 21 CTA HEAD WO W CON EXAM: CTA HEAD WO W CON 03/22/2020 11:04 PM EST [id number] CLINICAL STATEMENT: Dysarthria COMPARISON: No prior studies are available at the time of dictation. TECHNIQUE: Routine kwethluk of Castillo/brain CT angiogram protocol was performed following 75 cc Omnipaque 350 of intravenous contrast. AEC is utilized. 2-D and 3D reconstructions were reviewed. FINDINGS: There is no evidence for intracranial aneurysm and/or high-grade stenosis of the kw[place] of [place]. The vertebrobasilar artery is patent without aneurysm and/or high-grade stenosis. No acute intracranial arterial occlusions are identified. IMPRESSION: Unremarkable CTA of the head. FOLLOW-UP: Follow-up as clinically indicated. Dose reduction techniques were achieved by using automated exposure control and/or adjustment of mA and/or kV according to patient size and/or use of iterative reconstruction technique. Electronically authenticated by: SUZI HERNANDEZ Date: 2020-03-23 00:52 Normal [facility] CTA NECK WO W CONon 03-23-19 21 [...] SUZI HERNANDEZ Date: 2020-03-23 00:54 Normal [facility] CULTURE URINEon 03-23-2020 CULTURE URINE Culture Observations : NO GROWTH Normal [facility] Comment on above: Performed By: #### I NFLUAB #### [facility] [address] [place] [address] DRUG SCREEN RAPID (URINE)on 03-23-2020 AMP Negative Normal NEGATIVE [facility] Comment on above: Performed By: #### U MICRO, DRUGRPD, ERUR #### [facility] [address] [place] [address] Akin Aysha BAR Negative Normal NEGATIVE [facility] Comment on above: Performed By: #### U MICRO, DRUGRPD, ERUR #### [facility] [address] [place] [address] Akin Aysha BUP Negative Normal NEGATIVE [facility] Comment on above: Performed By: #### U MICRO, DRUGRPD, ERUR #### [facility] [address] [place] [address] Akin Aysha BZO Negative Normal NEGATIVE [facility] Comment on above: Performed By: #### U MICRO, DRUGRPD, ERUR #### [facility] [address] [place] [address] Akin Aysha JESUS Negative Normal NEGATIVE [facility] Comment on above: Performed By: #### U MICRO, DRUGRPD, ERUR #### [facility] [address] [place] [address] Akin Aysha CUT-OFFS SEE BELOW Normal [facility] Comment on above: Result Comment: [...] By: #### U MICRO, DRUGRPD, ERUR #### [facility] [address] [place] [address] DRUG CUT HEADER DRUG CLASS TEST SYST EM CUT-OFF CONCENTRATIONS ARE FOLLOWS: Normal [facility] Comment on above: Performed By: #### U MICRO, DRUGRPD, ERUR #### [facility] [address] [place] [address] Akin Aysha mAMP Negative Normal NEGATIVE [facility] Comment on above: Performed By: #### U MICRO, DRUGRPD, ERUR #### [facility] [address] [place] [address] Akin Aysha MTD Negative Normal NEGATIVE [facility] Comment on above: Performed By: #### U MICRO, DRUGRPD, ERUR #### [facility] [address] [place] [address] Akin Aysha OPI Negative Normal NEGATIVE [facility] Comment on above: Performed By: #### U MICRO, DRUGRPD, ERUR #### [facility] [address] [place] [address] Akin Aysha OXY Negative Normal NEGATIVE [facility] Comment on above: Performed By: #### U MICRO, DRUGRPD, ERUR #### [facility] [address] [place] [address] Akin Aysha PCP Negative Normal NEGATIVE [facility] Comment on above: Performed By: #### U MICRO, DRUGRPD, ERUR #### [facility] [address] [place] [address] Akin Aysha PPX Negative Normal NEGATIVE [facility] Comment on above: Performed By: #### U MICRO, DRUGRPD, ERUR #### [facility] [address] [place] [address] Akin Aysha TCA Negative Normal NEGATIVE [facility] Comment on above: Performed By: #### U MICRO, DRUGRPD, ERUR #### [facility] [address] [place] [address] Akin Aysha THC Positive Abnormal NEGATIVE [facility] Comment on above: Performed By: #### U MICRO, DRUGRPD, ERUR #### [facility] [address] [place] [address] Akinenio Olmstead ER URINE PROFILEon 1 Bilirubin [Mass/Vol] Negative Normal NEGATIVE [facility] Comment on above: Performed By: #### U MICRO, DRUGRPD, ERUR #### [facility] [address] [place] [address] Akin Aysha BLOOD TRACE-INTACT Abnormal NEGATIVE [facility] Comment on above: Performed By: #### U MICRO, DRUGRPD, ERUR #### [facility] [address] [place] [address] Akin Aysha Clarity (U) CLEAR Normal CLEAR [facility] Comment on above: Performed By: #### U MICRO, DRUGRPD, ERUR #### [facility] [address] [place] [address] Akin Aysha Color (U) YELLOW Normal YELLOW [facility] Comment on above: Performed By: #### U MICRO, DRUGRPD, ERUR #### [facility] [address] [address] Akin Aysha ERUAHD A micrscopic examina tion will be performed if indicated. Normal [facility] Comment on above: Performed By: #### U MICRO, DRUGRPD, ERUR #### [facility] [address] [address] Akin Aysha Glucose [Mass/Vol] Negative Normal NEGATIVE [facility] Comment on above: Performed By: #### U MICRO, DRUGRPD, ERUR #### [facility] [address] [address] Akin Aysha Ketones Ql (U) Negative Normal NEGATIVE [facility] Comment on above: Performed By: #### U MICRO, DRUGRPD, ERUR #### [facility] [address] [place] [address] Akin Aysha Nitrite Ql (U) Negative Normal NEGATIVE [facility] Comment on above: Performed By: #### U MICRO, DRUGRPD, ERUR #### [facility] [address] [place] [address] Akin Aysha pH (Bld) 5.5 Normal 5-9 [facility] Comment on above: Performed By: #### U MICRO, DRUGRPD, ERUR #### [facility] [address] [place] [address] Akin Aysha Protein (U) [Mass/Vol] Negative Normal NEGATIVE/ TRACE [facility] Comment on above: Performed By: #### U MICRO, DRUGRPD, ERUR #### [facility] [address] [place] [address] Akin Aysha SPEC GRAVITY 1.025 Normal 1.005-<=1.025 [facility] Comment on above: Performed By: #### U MICRO, DRUGRPD, ERUR #### [facility] [address] [place] [address] Akin Aysha UR MICRO IND INDICATED Normal [facility] Comment on above: Performed By: #### U MICRO, DRUGRPD, ERUR #### [facility] [address] [place], [place] [id number] Akin Aysha Urobilinogen Qn (U) 0.2 EU/dl Normal 0.2 - 1.0 [facility] Comment on above: Performed By: #### U MICRO, DRUGRPD, ERUR #### [facility] [address] [place] [address] Akin Olmstead WBC (Bld) [#/Vol] Negative Normal NEGATIVE [facility] Comment on above: Performed By: #### U MICRO, DRUGRPD, ERUR #### [facility] [address] [place] [address] Akin Olmstead POINT OF CARE GLUCOSEon 03-11 Glucose [Mass/Vol] 111 mg/dL Critically high 74-106 T [facility] Comment on above: Performed By: #### P OCGLUC #### [facility] [address] [place], [place] [id number] Akin Olmstead URon 03-23-2020 , QUAL Negative Normal NEGATIVE [facility] Comment on above: Performed By: #### P REGU #### [facility] [address] [place], [place] [id number] Akin Olmstead PROF 14(COMP METB)on 021 Albumin [Mass/Vol] 3.9 g/dL Normal 3.5-5.0 [facility] Comment on above: Performed By: #### C CHRISTIAN, HSTROPN #### [facility] [address] [place], [place] [id number] Akin Olmstead Albumin/Globulin [Mass ratio] 1.0 {ratio} Normal [facility] Comment on above: Performed By: #### C CHRISTIAN HSTROPN #### [facility] [address] [place], [place] [id number] Akin Aysha ALP [Catalytic activity/Vol] 43 U/L Normal 38-126 [facility] Comment on above: Performed By: #### C CHRISTIAN, HSTROPN #### [facility] [address] [place], [place] [id number] Akin Olmstead ALT [Catalytic activity/Vol] 29 U/L Normal 9-52 [facility] Comment on above: Performed By: #### C CHRISTIAN, HSTROPN #### [facility] [address] [id number] Akin Aysha Anion gap [Moles/Vol] 13.1 mmol/L Normal [facility] Comment on above: Performed By: #### C CHRISTIAN, HSTROPN #### [facility] [address] [place], [place] [id number] Akin Aysha AST [Catalytic activity/Vol] 20 U/L Normal 14-36 [facility] Comment on above: Performed By: #### C CHRISTIAN, HSTROPN #### [facility] [address] [place], [place] [id number] Akin Aysha Bilirubin Ql (U) 0.2 mg/dL Normal 0.2-1.3 [facility] Comment on above: Performed By: #### C CHRISTIAN, HSTROPN #### [facility] [address] [place] [address] Akin Aysha Calcium [Mass/Vol] 9.3 mg/dL Normal 8.4-10.2 [facility] Comment on above: Performed By: #### C CHRISTIAN, HSTROPN #### [facility] [address] [place] [address] Akin Aysha Chloride [Moles/Vol] 105 mmol/L Normal 98-107 [facility] Comment on above: Performed By: #### C CHRISTIAN, HSTROPN #### [facility] [address] [place] [address] Akin Aysha CO2 [Moles/Vol] 24.4 mmol/L Normal 22.0-30.0 [facility] Comment on above: Performed By: #### C CHRISTIAN, HSTROPN #### [facility] [address] [place], [place] [id number] Akin Aysha Creatinine [Mass/Vol] 0.72 mg/dL Normal 0.52-1.04 [facility] Comment on above: Performed By: #### C CHRISTIAN, HSTROPN #### [facility] [address] [place], [place] [id number] Akin Aysha EGFR-AF BERMUDIAN >60 Normal >=60 [facility] Comment on above: Performed By: #### C CHRISTIAN, HSTROPN #### [facility] [address] [place], [place] [id number] Akin Aysha EGFR-NON AF BERMUDIAN >60 Normal >=60 [facility] Comment on above: Performed By: #### C MP, HSTROPN #### [facility] [address] [id number] Akin Aysha Globulin (S) [Mass/Vol] 3.8 g/dL Normal [facility] Comment on above: Performed By: #### C CHRISTIAN, HSTROPN #### [facility] [address] [place] [address] Akin Aysha Glucose [Mass/Vol] 91 mg/dL Normal 74-106 [facility] Comment on above: Performed By: #### C CHRISTIAN, HSTROPN #### [facility] [address] [place] [address] Akin Aysha Potassium [Moles/Vol] 3.5 mmol/L Normal 3.4-5.0 [facility] Comment on above: Performed By: #### C CHRISTIAN, HSTROPN #### [facility] [address] [place] [address] Akin Aysha Protein [Mass/Vol] 7.7 g/dL Normal 6.1-8.2 [facility] Comment on above: Performed By: #### C CHIRSTIAN, HSTROPN #### [facility] [address] [place], [place] [id number] Akin Aysha Sodium [Moles/Vol] 139 mmol/L Normal 137-145 [facility] Comment on above: Performed By: #### C CHRISTIAN, HSTROPN #### [facility] [address] [place], [place] [id number] Akin Aysha Urea nitrogen [Mass/Vol] 15.0 mg/dL Normal 7.0-17.0 [facility] Comment on above: Performed By: #### C CHRISTIAN, HSTROPN #### [facility] [address] [place], [place] [id number] Akin Aysha Urea nitrogen/Creatinin e [Mass ratio] 20.8 mg/mg Normal [facility] Comment on above: Performed By: #### C CHRISTIAN, HSTROPN #### [facility] [address] [place] [address] Akinenio Olmstead TROPONIN, HIGH SENSITIVITYon 03-23-2020 HSTROP 4.0 pg/mL Normal 4.0-35.5 [facility] Comment on above: Result Comment: CUT- OFF POINTS HAVE BEEN ESTABLISHED BASED ON THE FOURTH UNIVERSAL DEFINITIONS OF MYOCARDIAL INFARCTION. THE UPPER REFERENCE LIMIT (URL) OF TROPONIN, DEFINED THE 99TH PERCENTILE OF cTnI DISTRIBUTION IN A REFERENCE POPULATION, HAS BEEN CONFIRMED THE DECISION THRESHOLD FOR [place] DIAGNOSIS. Performed By: #### C CHRISTIAN, HSTROPN #### [facility] [address] [place] [address] Akin Aysha URINE MICROSCOPIC ONLYon Bacteria LM.HPF (Urine sed) [#/Area] MODERATE Abnormal NONE SEEN [facility] Comment on above: Performed By: #### I NFLUAB #### [facility] [address] [place] [address] Akin Aysha CAST NONE SEEN Normal NONE SEEN [facility] Comment on above: Performed By: #### I NFLUAB #### [facility] [address] [place] [address] Akin Aysha Crystals LM Nom (Urine sed) NONE SEEN Normal NONE SEEN [facility] Comment on above: Performed By: #### I NFLUAB #### [facility] [address] [place] [address] Akin Aysha CULTURE INDICATED Normal [facility] Comment on above: Performed By: #### I NFLUAB #### [facility] [address] [place] [address] Akin Aysha Epithelial cells LM.HPF (Urine sed) [#/Area] FEW Abnormal NONE SEEN /RARE [facility] Comment on above: Performed By: #### I NFLUAB #### [facility] [address] [place] [address] Akin Aysha MUCOUS NONE SEEN Normal NONE SEEN [facility] Comment on above: Performed By: #### I NFLUAB #### [facility] [address] [place], [place] [address] Akin Aysha RBC (U) [#/Vol] 0-2 Normal 0-2 [facility] Comment on above: Performed By: #### I NFLUAB #### [facility] [address] [place] [address] Akin Aysha WBC (Bld) [#/Vol] 2-5 Abnormal NONE SEEN The [facility] Comment on above: Performed By: #### I NFLUAB #### [facility] [address] [place] [address] Akin Aysha CBC AUTO DIFFon 05-12-2019 Basophils (Bld) [#/Vol] 0.1 103/ul Normal 0.0-0.1 [facility] Comment on above: Performed By: #### C BC #### [facility] [address] [place], [place] [id number] Akin Aysha Basophils/100 WBC (Bld) 0.7 % Normal 0.2-2.0 [facility] Comment on above: Performed By: #### C BC #### [facility] [address] [place], [place] [id number] Akin Aysha Eosinophils (Bld) [#/Vol] 0.2 103/ul Normal 0.0-0.7 [facility] Comment on above: Performed By: #### C BC #### [facility] [address] [place], [place] [id number] Akin Aysha Eosinophils/100 WBC (Bld) 1.6 % Normal 0.9-7.0 [facility] Comment on above: Performed By: #### C BC #### [facility] [address] [place], [place] [id number] Akin Aysha Erythrocyte distribution width (RBC) [Ratio] 12.1 % Normal 11.0-15.0 [facility] Comment on above: Performed By: #### C BC #### [facility] [address] [place], [place] [id number] Akin Aysha Hematocrit (Bld) [Volume fraction] 42.5 % Normal 36.0-48.0 [facility] Comment on above: Performed By: #### C BC #### [facility] [address] [place] [address] Akin Aysha Hemoglobin (Bld) [Mass/Vol] 14.5 g/dL Normal 12.0-16.0 [facility] Comment on above: Performed By: #### C BC #### [facility] [address] [place] [address] Akin Aysha IG # 0.03 10e3/ul Normal 0.00-0.03 [facility] Comment on above: Performed By: #### C BC #### [facility] [address] [place] [address] Akin Aysha IG % 0.3 % Normal 0.0-0.5 [facility] Comment on above: Performed By: #### C BC #### [facility] [address] [place] [address] Akin Aysha Lymphocytes (Bld) [#/Vol] 4.2 103/ul Critically high 1.2-3.8 [facility] Comment on above: Performed By: #### C BC #### [facility] [address] [place] [address] Akin Aysha Lymphocytes/100 WBC (Bld) 36.2 % Normal 20.5-60.0 [facility] Comment on above: Performed By: #### C BC #### [facility] [address] [place] [address] Akin Aysha MANUAL DIFF REQ NO Normal [facility] Comment on above: Performed By: #### C BC #### [facility] [address] [place], [place] [id number] Akin Aysha MCH (RBC) [Entitic mass] 31.3 pg Normal 26.7-34.0 [facility] Comment on above: Performed By: #### C BC #### [facility] [address] [place] [address] Akin Aysha MCHC (RBC) [Mass/Vol] 34.1 g/dL Normal 29.9-35.2 [facility] Comment on above: Performed By: #### C BC #### [facility] [address] [place], [place] [address] Akin Aysha MCV (RBC) [Entitic vol] 91.6 fL Normal 81.0-99.0 [facility] Comment on above: Performed By: #### C BC #### [facility] [address] [place], [place] [address] Akin Aysha Monocytes (Bld) [#/Vol] 0.8 103/ul Normal 0.3-0.8 [facility] Comment on above: Performed By: #### C BC #### [facility] [address] [place], [place] [address] Akin Aysha Monocytes/100 WBC (Bld) 7.2 % Normal 1.7-12.0 [facility] Comment on above: Performed By: #### C BC #### [facility] [address] [place], [place] [address] Akin Aysha Neutrophils (Bld) [#/Vol] 6.2 103/ul Normal 1.4-6.5 [facility] Comment on above: Performed By: #### C BC #### [facility] [address] [place] [address] Akin Aysha Neutrophils/100 WBC (Bld) 54.0 % Normal 43.0-75.0 [facility] Comment on above: Performed By: #### C BC #### [facility] [address] [place] [address] Akin Aysha Platelet mean volume (Bld) [Entitic vol] 8.7 fL Critically low 9.5-13.5 [facility] Comment on above: Performed By: #### C BC #### [facility] [address] [place], [place] [address] Akin Aysha Platelets (Bld) [#/Vol] 333 103/ul Normal 150-450 [facility] Comment on above: Performed By: #### C BC #### [facility] [address] [place], [place] [address] Akin Aysha RBC (Bld) [#/Vol] 4.64 106/ul Normal 4.20-5.40 [facility] Comment on above: Performed By: #### C BC #### [facility] [address] [place] [address] Akin Olmstead WBC (Bld) [#/Vol] 11.5 103/ul Critically high 4.0-11.0 [facility] Comment on above: Performed By: #### C BC #### [facility] [address] [place] [address] Akin Aysha ER URINE PROFILEon 0 Bilirubin [Mass/Vol] Negative Normal NEGATIVE [facility] Comment on above: Performed By: #### I NFLUAB #### [facility] [address] [place] [address] Akin Aysha BLOOD Negative Normal NEGATIVE [facility] Comment on above: Performed By: #### I NFLUAB #### [facility] [address] [place] [address] Akin Aysha Clarity (U) CLOUDY Normal [facility] Comment on above: Performed By: #### I NFLUAB #### [facility] [address] [place] [address] Akin Aysha Color (U) LT. YELLOW Normal YELLOW [facility] Comment on above: Performed By: #### I NFLUAB #### [facility] [address] [place] [address] Akin Aysha ERUAHD A micrscopic examina tion will be performed if indicated. Normal [facility] Comment on above: Performed By: #### I NFLUAB #### [facility] [address] [place] [address] Akin Aysha Glucose [Mass/Vol] Negative Normal NEGATIVE [facility] Comment on above: Performed By: #### I NFLUAB #### [facility] [address] [place] [address] Akin Aysha Ketones Ql (U) Negative Normal NEGATIVE [facility] Comment on above: Performed By: #### I NFLUAB #### [facility] [address] [place] [address] Akin Aysha Nitrite Ql (U) Negative Normal NEGATIVE [facility] Comment on above: Performed By: #### I NFLUAB #### [facility] [address] [place] [address] Akin Olmstead pH (Bld) 8.5 Normal 5-9 [facility] Comment on above: Performed By: #### I NFLUAB #### [facility] [address] [place] [address] Akin Olmstead Protein (U) [Mass/Vol] Negative Normal [facility] Comment on above: Performed By: #### I NFLUAB #### [facility] [address] [place] [address] Akin Olmstead SPEC GRAVITY 1.015 Normal 1.005-<=1.025 [facility] Comment on above: Performed By: #### I NFLUAB #### [facility] [address] [place] [address] Aikn Olmstead UR MICRO IND NOT INDICATED Normal [facility] Comment on above: Performed By: #### I NFLUAB #### [facility] [address] [place] [address] Akin Olmstead Urobilinogen Qn (U) 0.2 EU/dl Normal [facility] Comment on above: Performed By: #### I NFLUAB #### [facility] [address] [place] [address] Akin Olmstead WBC (Bld) [#/Vol] Negative Normal NEGATIVE [facility] [place] Comment on above: Performed By: #### I NFLUAB #### [facility] [address] [place] [address] Akin Olmstead INFLUENZA A AND B AGon 05-11 INFLUANEGH SEE BELOW Normal [facility] Comment on above: Result Comment: Nega tive for Flu A protein angiten. Infection due to Flu A cannot be ruled out. Flu A angiten in the sample may be below the detection limit of the test. Performed By: #### I NFLUAB #### [facility] [address] [place] [address] Akinenio Segundoen INFLUBNEGH SEE BELOW Normal [facility] Comment on above: Result Comment: Nega tive for Flu B protein antigen. Infection due to Flu B cannot be ruled out. Flu B antigen in the sample may be below the detection limit of the test. Performed By: #### I NFLUAB #### [facility] [address] [place] [address] Akin Aysha INFLUENZA A AG Negative Normal NEGATIVE SEE COMMENT [facility] Comment on above: Performed By: #### I NFLUAB #### [facility] [address] [place] [address] Akinenio Olmstead INFLUENZA B AG Negative Normal NEGATIVE SEE COMMENT [facility] Comment on above: Performed By: #### I NFLUAB #### [facility] [address] [place] [address] Akin Aysha INTERNAL CONTROLS Within Normal Limits Normal Wi thin Normal Limits [facility] Comment on above: Performed By: #### I NFLUAB #### [facility] [address] [place] [address] Akin Aysha LACTATE/LACTIC ACIDon 2019 Lactate [Moles/Vol] 0.8 mmol/L Normal 0.7-2.0 [facility] Comment on above: Performed By: #### I NFLUAB #### [facility] [address] [place] [address] Akin Aysha PROF CHEM 8 (BAS METB)on Anion gap [Moles/Vol] 9.3 mmol/L Normal [facility] Comment on above: Performed By: #### B MP #### [facility] [address] [place] [address] Akin Aysha Calcium [Mass/Vol] 9.4 mg/dL Normal 8.4-10.2 [facility] Comment on above: Performed By: #### B MP #### [facility] [address] [place] [address] Akin Aysha Chloride [Moles/Vol] 105 mmol/L Normal 98-107 [facility] Comment on above: Performed By: #### B MP #### [facility] [address] [place], [place] [address] Akin Aysha CO2 [Moles/Vol] 28.3 mmol/L Normal 22.0-30.0 [facility] Comment on above: Performed By: #### B MP #### [facility] [address] [id number] Akin Aysha Creatinine [Mass/Vol] 0.81 mg/dL Normal 0.52-1.04 [facility] Comment on above: Performed By: #### B MP #### [facility] [address] [id number] Akin Aysha EGFR-AF BERMUDIAN >60 Normal >=60 [facility] Comment on above: Performed By: #### B MP #### [facility] [address] [address] Akin Aysha EGFR-NON AF BERMUDIAN >60 Normal >=60 [facility] Comment on above: Performed By: #### B MP #### [facility] [address] [address] Akin Aysha Glucose [Mass/Vol] 111 mg/dL Critically high 74-106 T [facility] Comment on above: Performed By: #### B MP #### [facility] [address] [id number] Akin Aysha Potassium [Moles/Vol] 3.6 mmol/L Normal 3.4-5.0 [facility] Comment on above: Performed By: #### B MP #### [facility] [address] [id number] Akin Aysha Sodium [Moles/Vol] 139 mmol/L Normal 137-145 [facility] Comment on above: Performed By: #### B MP #### [facility] [address] [id number] Akin Aysha Urea nitrogen [Mass/Vol] 13.0 mg/dL Normal 7.0-17.0 [facility] Comment on above: Performed By: #### B MP #### [facility] [address] [id number] Akin Aysha Urea nitrogen/Creatinin e [Mass ratio] 16.0 mg/mg Normal [facility] Comment on above: Performed By: #### B MP #### [facility] [address] [id number] Akin Olmstead XR CHEST 2 Von 05-12-2019 [...] by: Mayra DEGROOT Date: 2019-05-11 23:24 Normal [facility] DNA Extraction and holdon DNA Extraction and hold SEE BELOW Normal [facility] Comment on above: Result Comment: SPEC IMEN: BLOOD DNA EXTRACTION AND HOLD SPECIMEN TYPE: EDTA Blood Date Received: 12/28/18 EXTRACTION: DNA extracted from 3.0ml EDTA blood Method: [employer] Reagents from [employer] ANALYSIS: DNA concentration: 571.4ng/ul Total volume DNA: 225ul (in TE buffer) DNA Purity 260/280 Ratio: 1.9 Total DNA yield: 128.6ug STORAGE AND SPECIAL INSTRUCTIONS: The extracted DNA is stored in the [facility] at -700C in the DS & EX 2019 box. Holding for future testing. Any questions regarding this sample, please contact [facility] at [phone]. VANESSA CUNHA 01/11/2019 Performed By: #### D NEXZ #### [address] [address] SURGICAL PATHOLOGYon 019 SURGICAL PATHOLOGY Specimen #: [id number] Submitting Physician: ASHWINI SIMONS M.D. __ FINAL DIAGNOSIS Soft tissue, left posterior shoulder, excision - Lipoma with fat necrosis, see comment. SAMRA/NACHO/marybeth 08/08/2018 COMMENT Many thanks for sending in consultation this case of a [id number] with a lesion on the left posterior [...] Please call the Dermatopathology Consultation Service at [phone] with questions or if additional follow-up information becomes available regarding this patient. This case was reviewed in conjunction with the Dermatopathology Fellow, Dr. Clements. Fam Wogn M.D. (Electronic Signature) SPECIMEN SUBMITTED A: 12 SLIDES ([id number]: A-J) CLINICAL DATA None provided. Date of Report: 08/08/2018 Date of Procedure: 08/04/2018 Date of Receipt: 08/04/2018 Submitted by: ASHWINI SIMONS M.D. Location: Diagnostic interpretation performed at [facility], [address] [place] [address]. CLIA Number: [id number] Normal [facility] Comment on above: Performed By: #### S #### See report for performing lab information. Vital Signs Date Time Vital Sign Value Performing Clinician Maurice villegas 04-15-2023 12:35-0500 Body height 152.4 cm Rhea Mason [employer] Work Phone: [employer] 04-15-2023 12:35-0500 Body mass index (BMI) [Ratio] 29.02 kg/m2 Rhea Mason [employer] Work Phone: [facility] 04-15-2023 12:35-0500 Body weight 67.41 kg Rhea Cuevas PRACTICE CLINICIAN-SURFACER OPERATOR Work Phone: [facility] 04-15-2023 12:35-0500 Diastolic blood pressure 70 mm[Hg] Rhea Cuevas PRACTICE CLINICIAN-SURFACER OPERATOR Work Phone: [facility] 04-15-2023 12:35-0500 Heart rate 80 /min Rhea Cuevas PRACTICE CLINICIAN-SURFACER OPERATOR Work Phone: [facility] 04-15-2023 12:35-0500 SaO2% (BldA) [Mass fraction] 97 % [facility] PRACTICE CLINICIAN-SURFACER OPERATOR Work Phone: [facility] 04-15-2023 12:35-0500 Systolic blood pressure 116 mm[Hg] [facility] PRACTICE CLINICIAN-SURFACER OPERATOR Work Phone: [facility] Encounters Encounter Date Encounter Type Care Provider Facility Start: 11-29-2023 End: 11-29-2023 Emergency department patient visit LASHELL MOELLER [facility] Start: 08-18-2023 End: 08-18-2023 ambulatory DELON Frederick MACK [facility] Start: 06-16-2023 End: 06-16-2023 ambulatory JUAN VIOLET Not Available Start: 05-12-2023 End: 05-12-2023 ambulatory AUGUSTINE GRAYSON Not Available Start: 04-30-2023 End: 04-30-2023 ambulatory Juan Violet Facility:[facility] Start: 04-30-2023 End: 04-30-2023 ambulatory Juan Violet Work Phone: [facility] Work Phone: Start: 04-30-2023 End: 04-30-2023 Departed Referred Juan Violet Work Phone: [facility] Start: 04-15-2023 End: 04-15-2023 ambulatory [facility] Start: 04-15-2023 Encounter for other [facility]procedural examination [facility] Start: 04-15-2023 Telephone encounter Rhea Perez RN [facility] Comment on above: Surgical Or Dental C learance Start: 04-15-2023 End: 04-15-2023 Office outpatient visit 15 minutes Rhea Cuevasfannie PRACTICE CLINICIAN-SURFACER OPERATOR Work Phone: [facility] Comment on above: Preop examination (P rimary Dx); Paroxysmal atrial fibrillation ([facility]); Near syncope; Atrial flutter, unspecified type ([facility]) Start: 04-15-2023 End: 04-15-2023 Preprocedural examination done Rhea Cuevasfannie PRACTICE CLINICIAN-SURFACER OPERATOR Work Phone: [facility] [employer] Start: 04-07-2023 End: 04-07-2023 Departed Referred Juan Slade Work Phone: [facility] Start: 04-07-2023 End: 04-07-2023 ambulatory Juan Sldae Facility:[facility] Start: 03-03-2023 End: 03-03-2023 ambulatory JUAN SLADE Not Available Start: 02-17-2023 End: 02-17-2023 ambulatory Lashell Moeller [employer]-C Facility:[facility] Start: 02-15-2023 End: 02-15-2023 ambulatory Ezekiel RUIZ Facility:[facility] Start: 02-02-2023 End: 02-02-2023 ambulatory CHRISTIE Reid LINDA [facility] Start: 01-08-2023 End: 01-08-2023 ambulatory Lashell Moeller [employer] ANALYST-C Facility:[facility] Start: 07-15-2022 End: 07-15-2022 ambulatory Trevon Pruitt Facility:[facility] Start: 07-15-2022 End: 07-15-2022 ambulatory MD Trevon Pruitt Work Phone: [facility] Work Phone: Start: 07-15-2022 End: 07-15-2022 Departed Referred MD Trevon Pruitt Work Phone: [facility] Start: 07-09-2022 Patient encounter status Rhea Moreno PRACTICE CLINICIAN-SURFACER OPERATOR Work Phone: [facility] [employer] Work Phone: Start: 03-23-2020 End: 03-23-2020 Patient encounter procedure ADILIA PEREZ Facility:H1 Start: 05-11-2019 End: 05-12-2019 Patient encounter procedure DELON DE LA CRUZ Facility:H1 Procedures Date Procedure Procedure Detail Performing Clinician Start: 08-18-2023 Follow-up visit Follow-up DELON PEDERSEN Start: 04-15-2023 Ecg routine ecg w/le ast 12 lds w/i&r Rhea Moreno PRACTICE CLINICIAN-SURFACER OPERATOR Work Phone: Start: 05-12-2019 End: 05-12-2019 Microscopic examination of blood, culture DELON JONO Comment on above: Performed By: #### I NFLUAB #### [facility] [address] [address] [place] Plan of Treatment Date Care Activity Detail Author Start: 04-14-2024 Adult BMI Screening Adult BMI Screen ing [facility] Start: 04-14-2024 Tobacco Screening Tobacco Screening [facility] Start: 08-18-2023 End: 08-18-2023 Patient encounter procedure 08/18/2023 8:45 AM EDT Office Visit [facility] [address] [facility] [address] [place] [address] Delon Pedersen MD [address] [place] [address] [facility] Start: 10-09-2022 Influenza vaccination Influenza Vacc ine [facility] Start: 10-05-2022 DTaP,Tdap and Td Vaccines (7 - Td or Tdap) DTaP,Tdap and Td Vaccines (7 - Td or Tdap) [facility] Start: 2008 Screening for malign ant neoplasm of cervix Pap Smear [facility] Start: 2005 Adult BMI Follow Up Plan Adult BMI Follow Up Plan [employer] Start: 1999 Depression Screening Depression Scre ananya [employer] Start: 1987 [facility] P[facility] Date Payer Category Payer Self-pay 2021 Worker's Compensation WORKER'S C OMPENSATION WORKER'S [id number] ONLY [id number] 2021-Present [address] [address] [id number] 2002 Medicaid [place] [employer] [place] [employer] [id number] 2002-Present [phone] [address] [place] [address] [id number] 1987 Unknown [id number] 2.16.840.1.602584.3.579.2. 593 1987 Unknown [id number] 2.16.840.1.942505.3.579.2. 593 1987 Unknown [id number] 2.16.840.1.256038.3.579.2. 1286 1987 Unknown [id number] 2.16.840.1.589754.3.579.2. 1259 1987 Unknown [id number] 2.16.840.1.565403.3.579.2. 1259 1987 Unknown [id number] 2.16.840.1.595326.3.579.2. 1259 1987 Unknown [id number] 2.16.840.1.806071.3.579.2. 1259 1987 Unknown [id number] 2.16.840.1.171939.3.579.2. 718 1987 Unknown [id number] 2.16.840.1.512639.3.579.2. 718 1987 Unknown [id number] 2.16.840.1.809634.3.579.2. 718 1987 Unknown [id number] 2.16.840.1.882180.3.579.2. 1286 1987 Unknown [id number] 2.16.840.1.247922.3.579.2. 1286 1987 Unknown [id number] 2.16.840.1.063101.3.579.2. 1286 1959 Unknown [id number] Social History Date Type Detail Facility Tobacco smoking stat [facility] Unknown if ever smoked [facility] Work Phone: Start: 1985 Sex Assigned At Female F [facility] Start: 10-29-2022 Tobacco smoking stat [facility] Smokes tobacco daily [facility] End: 04-03-2020 History of tobacco use Cigarette Smoker [facility] Start: 2020 End: 10-29-2022 Cigarettes smoked current (pack per day) - Reported 0.5 [facility] Start: 10-29-2022 Tobacco use and exposure Smokeless tobacco non-user [facility] Start: 04-15-2023 Alcohol intake Current non-dr tree trimmer helper of alcohol (finding) [facility] Start: 2020 End: 04-15-2023 Tobacco use panel [facility] Childcare Unknown [facility] Start: 1985 Sex Assigned At Not on file P [facility] Medical Equipment Procedure Code Equipment Code [...] Slade and call us back. Looks like [facility] sent clearance letter today saying okay to hold for 48 hours. documented in this encounter [facility] Telephone encounter Note 04-15-2023 Telephone Encounter [...] Slade and call us back. Looks like [facility] sent clearance letter today saying okay to hold for 48 hours. [facility] History of Present illness Narrative 04-15-2023 Rhea Moreno APRN-SURFACER OPERATOR - 04/15/2023 12:30 PM EST Note Date & Type Note Facility 04-15-2023 History of Present illness Narrative Ariel Salas Date of visit: 04/15/2023 Date of : 1985 Age: 38 y.o. Patient Active Problem List Diagnosis Near syncope SOB (shortness of breath) Mass of subcutaneous tissue of back Lipoma of back Pyelonephritis Atrial flutter (CMS-HCC) Paroxysmal atrial fibrillation (CMS-HCC) Status post placement of implantable loop recorder - [employer] Preop cardiovascular exam No Known Allergies Current [...] Complaint Patient presents with Pre-op Exam ov-pre qi-pfqwnvpbz-nymqawid-dr slade [id number]-[facility] History of Present Illness Ariel Salas is a 38-year-old female past medical history of vasovagal syncope, prior TIA with renal infarct in 2020, paroxysmal atrial flutter with CHADS2 Vasc score of 3 on apixaban, [employer] implanted loop recorder Patient presents today for routine follow-up and preoperative risk stratification She will be having a uterine ablation at [facility] later this month She does notice intermittent [...] Medical History: Diagnosis Date Anxiety Atrial fibrillation ([facility]) Dental disease lower dentures Depression Endometriosis Leaky heart valve Low blood pressure Near syncope Seasonal allergies Stroke ([facility]) 03/27/2020 TIA TIA (transient ischemic attack) Visual impairment glasses No data recorded No data recorded No data recorded Past Surgical History: Procedure Laterality Date DILATION AND CURETTAGE OF UTERUS 05/2017 EXCISION LIPOMA Left 07/27/2018 Performed by Stan Dee MD at [facility] OVARIAN CYST REMOVAL 04/2018 Family History Problem [...] of TIA / renal infarct in 2020 [employer] implanted loop recorder Patient is low risk for upcoming surgery, okay to hold apixaban 48 hours prior to procedure and resume as soon as possible once deemed safe postprocedure. Continue remote monitoring Of her loop recorder, she has had brief runs of atrial flutter. Six-month follow-up in [place] with Dr. Pedersen - OLMAN Damon 04/15/23 2:44 PM Patient was seen when Dr Paz was present and immediately available in office suite. TODAYS ORDERS Orders Placed This Encounter Procedures POCT EKG FOLLOW UP Return in about 5 months (around 09/15/2023). PCP: OLMAN DURAN Referring Physician: OLMAN Duran [address] [place] [address] OLMAN Damon 04/15/23 1444 documented in this encounter [facility] Clinical Note 02-15-2023 Note Date & [...] develop this condition: ? Living in a prison or other extended care facility. ? Having [...] at home: Medicines ? Take or apply emhf-mnl-ufkjlzh and prescription medicines only as told by [...] provider. Document Revised: 05/24/2020 Document Reviewed: 05/24/2020 [employer] Patient Education ? 2022 [employer]. [facility] Evaluation note Note Date & Type Note Facility Evaluation note No assessment information [facility] Work Phone: Evaluation note Note Date & Type Note Facility Evaluation note Diagnosis Preop examination- Primary Unspecified pre-operative examination Paroxysmal atrial fibrillation (CMS-HCC) Atrial fibrillation Near syncope Atrial flutter, unspecified type (CMS-HCC) documented in this encounter [facility] [...] section and content) DATE CREATED AUTHOR 08/09/2018 [facility] DATE CREATED AUTHOR AUTHOR'S ORGANIZ ATION 01/13/[address] [facility] DATE CREATED AUTHOR AUTHOR'S ORGANIZ ATION 03/27/2020 [facility] DATE CREATED AUTHOR AUTHOR'S ORGANIZ ATION 04/16/2023 [facility] DATE CREATED AUTHOR AUTHOR'S ORGANIZ ATION 05/06/2023 [facility] DATE CREATED AUTHOR AUTHOR'S ORGANIZ ATION 06/18/2023 [facility] EPIC DATE CREATED AUTHOR AUTHOR'S ORGANIZ ATION 11/20/2023 [facility] DATE CREATED AUTHOR AUTHOR'S ORGANIZ ATION 12/10/2023 [facility] Care Teams (unrecognized sec tion and content) Team Status: Inactive Member Role Status Dates Trevon Pruitt MD Attending Provider Active Systems Engineering Manager Relationship Specialty Start Date End Date Lashell Moeller APRN-SURFACER OPERATOR [address] [place] [id number] PCP - General Family Medicine 01/22/21 Systems Engineering Manager Relationship Specialty Start Date End Date Lashell Moeller APRN-SURFACER OPERATOR [address] [place] [id number] PCP - General Family Medicine 01/22/21 Team Status: Inactive Member Role Status Dates Juan Slade Attending Provider Active Start: Viridiana mar 2023 End: April 07, 2023 Team Status: Inactive Member Role Status Dates Juan Slade Attending Provider Active Start: [facility] 2023 End: April 30, 2023 Goals (unrecognized section and content) Goals may be documented in a n alternate sectionNot on filedocumented as of this encounterNot on filedocumented as of this encounterGoals may be documented in an alternate section Reason for Visit (unrecogniz ed section and content) Reason Comments Pre-op Exam ov-pre op-clearance- [id number] Reason Onset Date Comments Surgical Or Dental [...] BE BASED ON THE PRIMARY CLINICAL RECORDS. [facility] [facility]. provides no warranty or guarantee of the accuracy or completeness of information in this document.
[2024-01-19 06:52] VITALS: BP 97/61; PULSE 87; TEMP 36.8; O2SAT 99; BMI 27.1
--- NOTE | 2024-01-19 07:33 | US_ITS ---
The [id number] Patient Name: ARIEL SALAS MRN: [id number] date: 1985 Sex: F Assigned Patient Location: ER Current Patient Location: ER Accession/Order Number: [id number] Exam Date: 01/19/2024 07:45 Report Date: 01/19/2024 08:47 At the request of: JOSÉ LUIS BARNEY Procedure: US pelvis transvaginal EXAMINATION: US pelvis transvaginal HISTORY: R pelvic pain hx ablation COMPARISON: No relevant comparison available. FINDINGS: The uterus measures 6.6 x 5.0 x 3.9 cm. Focal 1.7 x 1.2 x 1.4 cm hypoechoic mass in the uterine fundus, fibroid is favored The endometrium measures 3.4 mm, heterogeneous echotexture with areas of hyperechogenicity possibly representing calcification The right ovary is normal measuring 2.0 x 1.4 x 1.1 cm. Normal color Doppler flow The left ovary is normal measuring 2.2 x 2.6 x 1.6 cm. Normal color Doppler flow No free fluid US/US pelvis transvaginal IMPRESSION: Heterogeneous endometrium with calcification, nonspecific No evidence of ovarian torsion Electronically authenticated by: JOYCE POWELL Date: 01/19/2024 08:47
[2024-01-19 07:45] LABS: Basophils Absolute Auto 0.1 10^3/uL (0.0-0.1); Basophils Percent Auto 0.7 % (0.2-2.0); Eosinophils Absolute Auto 0.2 10^3/uL (0.0-0.7); Eosinophils Percent Auto 2.2 % (0.9-7.0); Hemoglobin 14.3 g/dL (12.0-16.0); Immature Granulocytes Abs Auto 0.02 10^3/uL (0.00-0.03); Immature Granulocytes Pct Auto 0.3 % (0.0-0.5); Lymphocytes Percent Auto 39.8 % (20.5-60.0); Mean Corpuscular Hemoglobin 30.4 pg (26.7-34.0); Mean Corpuscular Volume 89.4 fL (81.0-99.0); Mean Platelet Volume 8.5 fL (9.5-13.5); Monocytes Absolute Auto 0.5 10^3/uL (0.3-0.8); Monocytes Percent Auto 6.9 % (1.7-12.0); Neutrophils Absolute Auto 3.7 10^3/uL (1.4-6.5); Neutrophils Percent Auto 50.1 % (43.0-75.0); Platelet Count 336 10^3/uL (150-450); Red Cell Distribution Width 11.9 % (11.0-15.0); White Blood Count 7.4 10^3/uL (4.0-11.0)
--- NOTE | 2024-01-19 07:48 | ED_ITS ---
HPI - Abdominal Pain General Chief Complaint: Abdominal Pain Stated Complaint: ABDOMINAL PAIN Time Seen by Provider: 01/19/24 07:15 Source: patient Mode of arrival: Carry Limitations: no limitations History of Present Illness HPI narrative: Patient presents to ED complaining of right lower quadrant pain. Patient states she had an ablation done by Dr. Lazo in April. She has had the severe right lower quadrant pain on and off since the ablation was completed. She said she has had it 2 times that were very severe but they ended up resolving on their own. About 2 months ago she went to [place] [facility] and had a CT scan that was negative. They told her she needs an ultrasound for further evaluation. On Wednesday she had a third episode of this severe right lower quadrant pain and it did resolve Wednesday but then it came back Wednesday and also Wednesday and then again today. It has been on and off since Wednesday. She called Dr. Lazo's office and they said to come in to the emergency room for the pelvic ultrasound. Patient denies any vaginal bleeding or UTI symptoms. No nausea vomiting. She states is less painful if she lays on her left side. Patient denies . Related Data Home Medications ?Medication ?Instructions ?Recorded ?Confirmed apixaban 5 mg tablet (Eliquis) 5 mg PO BID 04/21/23 04/30/23 metoprolol succinate 25 mg 25 mg PO DAILY 04/21/23 04/30/23 tablet,extended release 24 hr Previous Rx's ?Medication ?Instructions ?Recorded hydrocodone 5 mg-acetaminophen 325 1 tab PO Q4H PRN pain 4 days #16 04/30/23 mg tablet tabs ibuprofen 800 mg tablet 800 mg PO Q8H PRN pain 14 days #40 04/30/23 tabs Allergies Allergy/AdvReac Type Severity Reaction Status Date / Time Sulfa (Sulfonamide Allergy Severe Rash Verified 04/20/23 15:00 Antibiotics) trimethoprim Allergy Severe Rash Verified 04/20/23 15:00 Review of Systems ROS Status of ROS 10 or more systems reviewed and unremark able except as noted in history and below [facility] Medical History (Updated 01/19/24 @ 10:18 by Shelia Lizarrgaa DO) Fracture of right wrist ?S62.101A - Fracture of unspecified carpal bone, right wrist, initial encounter for closed fracture (ICD-10) Delayed recovery from anesthesia Abnormal uterine bleeding ?N93.9 - Abnormal uterine and vaginal bleeding, unspecified (ICD-10) Menorrhagia ?N92.0 - Excessive and frequent menstruation with regular cycle (ICD-10) Pelvic pain ?R10.2 - Pelvic and perineal pain (ICD-10) Visual impairment ?H54.7 - Unspecified visual loss (ICD-10) TIA (transient ischemic attack) ?G45.9 - Transient cerebral ischemic attack, unspecified (ICD-10) Seasonal allergies ?J30.2 - Other seasonal allergic rhinitis (ICD-10) Low blood pressure ?I95.9 - Hypotension, unspecified (ICD-10) Leaky heart valve ?I38 - Endocarditis, valve unspecified (ICD-10) Endometriosis ?N80.9 - Endometriosis, unspecified (ICD-10) Depression ?F32.A - Depression, unspecified (ICD-10) Anxiety ?F41.9 - Anxiety disorder, unspecified (ICD-10) Near syncope ?R55 - Syncope and collapse (ICD-10) Lipoma of back ?D17.1 - Benign lipomatous neoplasm of skin and subcutaneous tissue of trunk (ICD-10) Pyelonephritis ?N12 - Tubulo-interstitial nephritis, not specified as acute or chronic (ICD- 10) Atrial fibrillation ?I48.91 - Unspecified atrial fibrillation (ICD-10) Atrial flutter ?I48.92 - Unspecified atrial flutter (ICD-10) Surgical History (Updated 04/20/23 @ 14:56 by Corinne Adhikari RN) H/O ovarian cystectomy ?Z98.890 - Other specified postprocedural states (ICD-10) ?Z87.42 - Personal history of other diseases of the female genital tract (ICD-10) S/P excision of lipoma ?Z98.890 - Other specified postprocedural states (ICD-10) ?Z86.018 - Personal history of other benign neoplasm (ICD-10) H/O dilation and curettage ?Z98.890 - Other specified postprocedural states (ICD-10) Family History (Updated 04/20/23 @ 14:59 by Corinne Adhikari, RN) Other Arthritis Asthma Autism Depression Family history of cancer Family history of diabetes mellitus Family history of hypertension Heart disease Social History (Updated 04/21/23 @ 10:10 by Corinne Adhikari RN) Within the past year, how often did you have a drink containing alcohol: never Score interpretation: A score less than 3 is consistent with normal alcohol consumption. Smoking status: Current every day smoker Non-prescribed substance use: denies use Previous occupational history: [employer] Highest level of school completed/degree received: high school graduate Little interest or pleasure in doing things: not at all Feeling down, depressed, or hopeless: not at all Exam Narrative Exam Narrative: General: alert, no acute distress Cardiovascular: regular rate and rhythm, normal peripheral perfusion. Respiratory: Lungs CTA, respirations non labored. Extremities: no deformity, no trauma. Neurological: oriented x 4, LOC appropriate for age. Abdomen soft. Tenderness in the right lower quadrant. No rebound no guarding Constitutional Vital Signs, click to edit/add: Last Vital Signs Temp 98.3 F 01/19/24 06:52 Pulse 87 01/19/24 06:52 Resp 20 01/19/24 06:52 BP 97/61 01/19/24 06:52 Pulse Ox 99 01/19/24 06:52 O2 Del Method Room Air 01/19/24 06:52 Course Vital Signs Vital signs: Vital Signs Temperature 98.3 F 01/19/24 06:52 Pulse Rate 87 01/19/24 06:52 Respiratory Rate 20 01/19/24 06:52 Blood Pressure 97/61 01/19/24 06:52 Pulse Oximetry 99 01/19/24 06:52 Oxygen Delivery Method Room Air 01/19/24 06:52 Temperature 98.3 F 01/19/24 06:52 Pulse Rate 87 01/19/24 06:52 Respiratory Rate 20 01/19/24 06:52 Blood Pressure 97/61 01/19/24 06:52 Pulse Oximetry 99 01/19/24 06:52 Oxygen Delivery Method Room Air 01/19/24 06:52 MDM - Abdominal Pain MDM Narrative Medical decision making narrative: Patient's ultrasound shows small uterine fibroid. I spoke to Dr. Lazo who states this is most likely not the cause of her pain. He wants her to make an appointment to be seen in his office this week or next. Return to ED if worsening symptoms otherwise follow-up with Dr. Lazo. Patient states she will call today to schedule an appointment. Blood work is negative for any acute findings. Patient is comfortable with care plan for home. Differential Diagnosis Differential diagnosis: Likely abdominal pain, calculus of kidney, endometriosis and gastroenteritis Lab Data Attestation: I reviewed the patient's lab results. Labs: Lab Results 01/19/24 01/19/24 Range/Units 07:15 08:50 WBC 7.4 (4.0-11.0) 10^3/uL RBC 4.70 (4.20-5.40) 10^6/uL Hgb 14.3 (12.0-16.0) g/dL Hct 42.0 (36.0-48.0) % MCV 89.4 (81.0-99.0) fL MCH 30.4 (26.7-34.0) pg MCHC 34.0 (29.9-35.2) g/dL RDW 11.9 (11.0-15.0) % Plt Count 336 (150-450) 10^3/uL MPV 8.5 L (9.5-13.5) fL Neut % (Auto) 50.1 (43.0-75.0) % Lymph % (Auto) 39.8 (20.5-60.0) % [place] % (Auto) 6.9 (1.7-12.0) % Eos % (Auto) 2.2 (0.9-7.0) % Baso % (Auto) 0.7 (0.2-2.0) % Neut # (Auto) 3.7 (1.4-6.5) 10^3/uL Lymph # (Auto) 3.0 (1.2-3.8) 10^3/uL [place] # (Auto) 0.5 (0.3-0.8) 10^3/uL Eos # (Auto) 0.2 (0.0-0.7) 10^3/uL Baso # (Auto) 0.1 (0.0-0.1) 10^3/uL Abs Immat Gran (auto) 0.02 (0.00-0.03) 10^3/uL Imm/Tot Granulo (auto) 0.3 (0.0-0.5) % Sodium 140 (136-145) mmol/L Potassium 4.1 (3.5-5.1) mmol/L Chloride 104 (98-107) mmol/L Carbon Dioxide 29.1 (21.0-32.0) mmol/L Anion Gap 11.0 BUN 18.0 (7.0-18.0) mg/dL Creatinine 0.96 (0.55-1.02) mg/dL Est GFR ( Amer) >60 (>=60 mL/min/1.73m^2) Est GFR (Non-Af Amer) >60 (>=60 mL/min/1.73m^2) BUN/Creatinine Ratio 18.8 Glucose 112 H (74-106) mg/dL Calcium 8.8 (8.5-10.1) mg/dL Total Bilirubin 0.3 (0.2-1.0) mg/dL AST 16 (15-37) U/L ALT 24 (14-59) U/L Alkaline Phosphatase 70 (46-116) U/L Total Protein 6.7 (6.4-8.2) g/dL Albumin 3.3 L (3.4-5.0) g/dL Globulin 3.4 g/dL Albumin/Globulin Ratio 1.0 Urine Color Yellow (YELLOW) Urine Clarity Clear (CLEAR) Urine pH 5.5 (5.0-9.0) Ur Specific [place] >=1.030 A (1.005-1.025) Urine Protein Negative (NEG/TRACE) mg/dL Urine Glucose (UA) Negative (NEGATIVE) mg/dL Urine Ketones Negative (NEGATIVE) mg/dL Urine Occult Blood Small A (NEGATIVE) Urine Nitrite Negative (NEGATIVE) Urine Bilirubin Negative (NEGATIVE) Urine Urobilinogen 0.2 (0.2-1.0) EU/dL Ur Leukocyte Esterase Negative (NEGATIVE) Urine RBC 2-5 A (0-2) #/HPF Urine WBC 0-2 A (NONE SEEN) #/HPF Ur Squamous Epith Cells Moderate A (NONE/RARE) #/LPF Urine Crystals None seen (None Seen) #/HPF Urine Bacteria Trace A (NONE SEEN) #/HPF Urine Casts None seen (NONE SEEN) #/LPF Urine Mucus Large A (NONE SEEN) Ur Culture Indicated? No Urine HCG, Qual Negative (NEGATIVE) Imaging Data Abdominal x-ray: Radiologist's impression: ITS Impressions Transvaginal US 01/19/24 07:33 IMPRESSION: Heterogeneous endometrium with calcification, nonspecific No evidence of ovarian torsion Electronically authenticated by: JOYCE POWELL Date: 01/19/2024 08:47 Discharge Plan Discharge Chief Complaint: Abdominal Pain Clinical Impression: Abdominal pain Patient Disposition: Home, Self-Care Time of Disposition Decision: 10:17 Condition: Good Mode of Transportation: Private Vehicle Prescriptions / Home Meds: No Action Eliquis 5 mg tablet 5 mg PO BID metoprolol succinate 25 mg tablet extended release 24 hr 25 mg PO DAILY ibuprofen 800 mg tablet 800 mg PO Q8H PRN (Reason: pain) 14 Days Qty: 40 0RF hydrocodone-acetaminophen 5-325 mg tablet 1 tab PO Q4H PRN (Reason: pain) 4 Days Qty: 16 0RF Print Language: Nepali Instructions: Abdominal Pain (ED) Referrals: Juan Lazo DO [Physician] - 1 week NILESH GALINDO [Primary Care Provider] - 1 week Discharge Date/Time: 01/19/24 10:37
[2024-01-19] MEDS: KETOROLAC TROMETHAMINE 30 MG/ML VIAL 15 MG IVP (07:51)
[2024-01-19 08:05] LABS: Alanine Aminotransferase 24 U/L (14-59); Albumin Level 3.3 g/dL (3.4-5.0); Alkaline Phosphatase 70 U/L (46-116); Aspartate Amino Transferase 16 U/L (15-37); BUN Creatinine Ratio 18.8; Bilirubin Total 0.3 mg/dL (0.2-1.0); Calcium 8.8 mg/dL (8.5-10.1); Carbon Dioxide 29.1 mmol/L (21.0-32.0); Chloride 104 mmol/L (98-107); Estimated GFR (African America >60 (>=60 mL/min/1.73m^2); Estimated GFR (Non-African Ame >60 (>=60 mL/min/1.73m^2); Globulin 3.4 g/dL; Glucose 112 mg/dL (74-106); Potassium 4.1 mmol/L (3.5-5.1); Sodium 140 mmol/L (136-145); Total Protein 6.7 g/dL (6.4-8.2)
[2024-01-19 08:57] LABS: Bilirubin Urine NEGATIVE (NEGATIVE); Blood Urine SMALL (NEGATIVE); Clarity Urine CLEAR (CLEAR); Color Urine YELLOW (YELLOW); Glucose Urine UA NEGATIVE (NEGATIVE); Ketones Urine NEGATIVE (NEGATIVE); Leukocyte Esterase Urine NEGATIVE (NEGATIVE); Nitrite Urine NEGATIVE (NEGATIVE); Protein Urine NEGATIVE (NEG/TRACE); Specific Gravity Urine >=1.030 (1.005-1.025); Urobilinogen Urine 0.2 EU/dL (0.2-1.0); pH Urine 5.5 (5.0-9.0)
[2024-01-19 08:58] LABS: Urine Microscopic Indicated YES
[2024-01-19 09:00] LABS: HCG Qualitative Urine* NEGATIVE (NEGATIVE); Internal Control Within Normal Limits
[2024-01-19 09:08] LABS: Bacteria Urine TRACE #/HPF (NONE SEEN); Cast Seen? NONE SEEN #/LPF (NONE SEEN); Crystals Seen? None Seen #/HPF (None Seen); Mucus Urine LARGE (NONE SEEN); Squamous Epithelial Cell Urine MODERATE #/LPF (NONE/RARE); WBC Urine 0-2 #/HPF (NONE SEEN)
[2024-01-19 09:09] LABS: Urine Culture Indicated NO
== END 2024-01-19 10:37 | disposition home or self-care (01) ==
PROVIDERS: Emergency Provider Emergency Medicine
DX: R10.31 Right lower quadrant pain (principal); F17.200 Nicotine dependence, unspecified, uncomplicated; D25.9 Leiomyoma of uterus, unspecified
CPT/HCPCS: 36415; 76830; 80053; 81001; 84703; 85025; 96374; 99285; J1885

== ENCOUNTER 2024-03-21 13:05 | Emergency (ER) | payer OTHER, SELFPAY ==
[2024-03-21 13:18] VITALS: BP 104/78; PULSE 69; TEMP 36.7; O2SAT 100; BMI 30.3
--- NOTE | 2024-03-21 15:25 | US_ITS ---
The [address] [address] Patient Name: ARIEL SALAS MRN: [id number] date: 1985 Sex: F Assigned Patient Location: ER Current Patient Location: ER Accession/Order Number: [id number] Exam Date: 03/21/2024 17:50 Report Date: 03/21/2024 18:50 At the request of: BON FREDERICK Procedure: US pelvis transvaginal EXAM: Pelvic ultrasound ultrasound CLINICAL INDICATION: right pelvic pain. COMPARISON: Ultrasound dated 01/19/2024 TECHNIQUE: Transvaginal pelvic ultrasound was performed with grayscale and color Doppler images were obtained. FINDINGS: Uterus: Uterus measures 2.5 x 4.4 x 5.8 cm. No abnormal uterine masses. Endometrium measures 7 mm thickness. Hypoechoic mass along the endometrial canal measuring approximately 3.2 x 2.0 x 3.6 cm, this was present previously. Tiny amount of fluid along the endocervical canal. Ovary was unable to be visualized during the exam. Left ovary: Measures 1.9 x 1.4 x 1.3 cm. Normal color flow and Doppler arterial and venous waveforms. No ovarian masses. Small amount of free fluid in the pelvis. US/US pelvis transvaginal IMPRESSION: Hypoechoic mass in the uterus along the fundal aspect of the endometrial canal. This could represent a submucosal fibroid although has a somewhat unusual echotexture. Recommend follow-up ultrasound in 3 months versus further evaluation with contrast-enhanced MRI on a nonemergent basis. Electronically authenticated by: MALU BARRERA Date: 03/21/2024 18:50
--- NOTE | 2024-03-21 15:25 | CT_ITS ---
The [address] [address] Patient Name: ARIEL SALAS MRN: [id number] date: 1985 Sex: F Assigned Patient Location: ER Current Patient Location: ER Accession/Order Number: [id number] Exam Date: 03/21/2024 17:18 Report Date: 03/21/2024 17:40 At the request of: BON FREDERICK Procedure: CT abdomen pelvis w con EXAM: CT scan of the abdomen and pelvis using 100 mL of IV iodinated contrast. Oral contrast. Dose reduction technique used: Automated exposure control and/or adjustment of the mA and/or kV according to patient size and/or use of iterative reconstruction technique. REASON FOR EXAM: right lower abd pain COMPARISON: None FINDINGS: Cystic structure in the uterus measuring approximately 4.7 x 2.4 x 2.0 cm along the endometrial canal. Left renal parenchymal scarring. Bladder wall thickening. Small fat-containing ventral hernia. Normal appendix. No free fluid in the abdomen or pelvis. No free intraperitoneal air. No dilated or thickened loops of small bowel or colon. No hydronephrosis or obstructing renal or ureteral calculi. Liver, pancreas, spleen, bilateral kidneys, and bilateral adrenal glands are otherwise unremarkable. No lymphadenopathy in the abdomen or pelvis. Remainder unremarkable. CT/CT abdomen pelvis w con IMPRESSION: 1. Indeterminate cystic structure along the endometrial canal. Recommend further evaluation with ultrasound. 2. Bladder wall thickening may represent cystitis, correlate clinically. Electronically authenticated by: MALU BARRERA Date: 03/21/2024 17:40
--- NOTE | 2024-03-21 15:27 | ED.ABDPAIN1 ---
HPI - Abdominal Pain General Chief Complaint: Abdominal Pain Stated Complaint: ABDOMINAL PAIN Time Seen by Provider: 03/21/24 15:20 Source: patient Mode of arrival: Wheelchair Limitations: no limitations History of Present Illness HPI narrative: 39-year-old female presents to the emergency department with complaint of right lower quadrant, pelvic pain since yesterday. Has had problems with pain in this region in the past. States her nurse practitioner gynecology provider told her she had a hernia behind her ovary. They think she may have developed it after getting an ablation. Feels like it keeps going in and out. Pain has been progressively worsening. + Nausea. Denies fever, chills, vomiting, diarrhea, dysuria, frequency, vaginal bleeding. Quality:?Sharp Severity:?Moderate Timing:?As above, constant, waxing and waning Context: Normal setting and activity? Modifying factors:?Worse with palpation Associated symptoms: As above Related Data Home Medications ?Medication ?Instructions ?Recorded ?Confirmed apixaban 5 mg tablet (Eliquis) 5 mg PO BID 04/21/23 04/30/23 metoprolol succinate 25 mg 25 mg PO DAILY 04/21/23 04/30/23 tablet,extended release 24 hr Previous Rx's ?Medication ?Instructions ?Recorded hydrocodone 5 mg-acetaminophen 325 1 tab PO Q8H PRN pain 3 days #8 03/21/24 mg tablet tabs ibuprofen 600 mg tablet 600 mg PO Q8H PRN pain #20 tabs 03/21/24 ondansetron 4 mg disintegrating 4 mg PO Q8H PRN nausea and 03/21/24 tablet vomiting #10 tabs Allergies Allergy/AdvReac Type Severity Reaction Status Date / Time Sulfa (Sulfonamide Allergy Severe Rash Verified 03/21/24 13:18 Antibiotics) trimethoprim Allergy Severe Rash Verified 03/21/24 13:18 Review of Systems ROS Narrative CONST: Denies any fever, chills RESP: Denies any shortness of breath CV: Denies any chest pain GI: +abd pain.? + nausea. Denies vomiting, diarrhea. : + Pelvic pain. Denies any flank pain, dysuria, vaginal bleeding MS: Denies any back pain, myalgias SKIN: Denies any color change, rash NEURO: Denies numbness, weakness PSYCHIATRIC: Denies confusion, agitation PFSH PFSH Medical History Fracture of right wrist ?S62.101A - Fracture of unspecified carpal bone, right wrist, initial encounter for closed fracture (ICD-10) Delayed recovery from anesthesia Abnormal uterine bleeding ?N93.9 - Abnormal uterine and vaginal bleeding, unspecified (ICD-10) Menorrhagia ?N92.0 - Excessive and frequent menstruation with regular cycle (ICD-10) Pelvic pain ?R10.2 - Pelvic and perineal pain (ICD-10) Visual impairment ?H54.7 - Unspecified visual loss (ICD-10) TIA (transient ischemic attack) ?G45.9 - Transient cerebral ischemic attack, unspecified (ICD-10) Seasonal allergies ?J30.2 - Other seasonal allergic rhinitis (ICD-10) Low blood pressure ?I95.9 - Hypotension, unspecified (ICD-10) Leaky heart valve ?I38 - Endocarditis, valve unspecified (ICD-10) Endometriosis ?N80.9 - Endometriosis, unspecified (ICD-10) Depression ?F32.A - Depression, unspecified (ICD-10) Anxiety ?F41.9 - Anxiety disorder, unspecified (ICD-10) Near syncope ?R55 - Syncope and collapse (ICD-10) Lipoma of back ?D17.1 - Benign lipomatous neoplasm of skin and subcutaneous tissue of trunk (ICD-10) Pyelonephritis ?N12 - Tubulo-interstitial nephritis, not specified as acute or chronic (ICD-10) Atrial fibrillation ?I48.91 - Unspecified atrial fibrillation (ICD-10) Atrial flutter ?I48.92 - Unspecified atrial flutter (ICD-10) Surgical History H/O ovarian cystectomy ?Z98.890 - Other specified postprocedural states (ICD-10) ?Z87.42 - Personal history of other diseases of the female genital tract (ICD-10) S/P excision of lipoma ?Z98.890 - Other specified postprocedural states (ICD-10) ?Z86.018 - Personal history of other benign neoplasm (ICD-10) H/O dilation and curettage ?Z98.890 - Other specified postprocedural states (ICD-10) Family History Other Arthritis Asthma Autism Depression Family history of cancer Family history of diabetes mellitus Family history of hypertension Heart disease Social History Within the past year, how often did you have a drink containing alcohol: never Score interpretation: A score less than 3 is consistent with normal alcohol consumption. Smoking status: Current every day smoker Non-prescribed substance use: denies use Previous occupational history: [employer] Highest level of school completed/degree received: high school graduate Little interest or pleasure in doing things: not at all Feeling down, depressed, or hopeless: not at all Exam Narrative Exam Narrative: Vital signs reviewed Nurses notes noted CONST: Nontoxic, uncomfortable appearing, well nourished, in nomild distress.? No diaphoresis.?? HENT: normocephalic, atraumatic, moist mucous membrane, no abnormalities of the nose noted, hearing normal EYES: normal appearing conjunctiva, no apparent discharge bilat NECK: normal appearance CV: normal rate, regular rhythm, no murmur RESP: normal effort, speaking in complete sentences. Lung sounds clear and equal bilat.? No wheezes, rales, rhonchi GI: normal bowel sounds, soft, no distension, +tenderness: Right lower quadrant and right pelvic region with some voluntary guarding. No palpable abdominal wall or pelvic wall defect palpable. No skin discoloration, distention. : no CVA tenderness MS: no edema, tenderness SKIN: no pallor NEURO: A&Ox 3, no focal findings PSYCH: normal mood, affect Constitutional Vital Signs, click to edit/add: Last Vital Signs Temp 98.1 F 03/21/24 13:18 Pulse 69 03/21/24 13:18 Resp 16 03/21/24 13:18 BP 104/78 03/21/24 13:18 Pulse Ox 100 03/21/24 13:18 O2 Del Method Room Air 03/21/24 13:18 Course Vital Signs Vital signs: Vital Signs Temperature 98.1 F 03/21/24 13:18 Pulse Rate 69 03/21/24 13:18 Respiratory Rate 16 03/21/24 13:18 Blood Pressure 104/78 03/21/24 13:18 Pulse Oximetry 100 03/21/24 13:18 Oxygen Delivery Method Room Air 03/21/24 13:18 Temperature 98.1 F 03/21/24 13:18 Pulse Rate 69 03/21/24 13:18 Respiratory Rate 16 03/21/24 13:18 Blood Pressure 104/78 03/21/24 13:18 Pulse Oximetry 100 03/21/24 13:18 Oxygen Delivery Method Room Air 03/21/24 13:18 MDM - Abdominal Pain MDM Narrative Medical decision making narrative: This is a pleasant 39-year-old female who presents to the emergency department for evaluation of right lower abdominal, pelvic pain since yesterday. + Nausea On arrival, afebrile, vital signs are stable Exam, nontoxic, well-appearing patient in no distress. Heart regular rate and rhythm. Lung sounds clear and equal bilaterally. Abdomen soft with some tenderness to the right lower, right pelvic region. IV access established, blood work was drawn and sent to the lab. She was given IV fluids, pain medications with some improvement during ED course. Labs reveal white count of 17,000. No anemia, thrombocytopenia, electrolyte imbalance, renal impairment. Glucose 99. Urinalysis unremarkable. CT abdomen pelvis imaging, per radiologist reveals cystic structure in the uterus measuring approximately 4.7 x 2.4 x 2.0 cm along the endometrial canal. Ultrasound imaging, per radiology report reveals hypoechoic mass along the endometrial canal measuring approximately 3.2 x 2.0 x 3.6 cm, this was present previously Uncertain etiology of her pelvic, abdominal pain at this time. Favor nonspecific abdominal, pelvic pain Torsion less likely based on imaging UTI less likely based on laboratory testing History and Record Review Additional records reviewed: Surgical report from 04/30/2023 Additional Tests and Interventions IV Fluids:hydration/inability to tolerate PO Disposition ? The patient was discharged. Prescriptions sent to pharmacy: [place], ibuprofen, Zofran Plan: Patient will be discharged to home .? Condition at time of disposition: stable, improved.? Advised to follow up with referral provider, name and number placed on discharge paperwork. Advised to return for any worsening and/or development of new, concerning signs or symptoms Admission considered: No evidence of acute intra-abdominal process, infection PLEASE NOTE: Portions of the medical record may have been produced using electronic overhead garage door hanger and may contain errors with respect to translation of words which may not have been identified prior to finalization of the chart. Medical Records Attestation: I reviewed the patient's medical records. Lab Data Attestation: I reviewed the patient's lab results. Labs: Lab Results 03/21/24 03/21/24 Range/Units 15:54 16:45 WBC 17.5 H (4.0-11.0) 10^3/uL RBC 4.72 (4.20-5.40) 10^6/uL Hgb 14.2 (12.0-16.0) g/dL Hct 42.1 (36.0-48.0) % MCV 89.2 (81.0-99.0) fL MCH 30.1 (26.7-34.0) pg MCHC 33.7 (29.9-35.2) g/dL RDW 12.0 (11.0-15.0) % Plt Count 327 (150-450) 10^3/uL MPV 8.5 L (9.5-13.5) fL Neut % (Auto) 78.2 H (43.0-75.0) % Lymph % (Auto) 15.2 L (20.5-60.0) % [place] % (Auto) 5.5 (1.7-12.0) % Eos % (Auto) 0.4 L (0.9-7.0) % Baso % (Auto) 0.4 (0.2-2.0) % Neut # (Auto) 13.7 H (1.4-6.5) 10^3/uL Lymph # (Auto) 2.7 (1.2-3.8) 10^3/uL [place] # (Auto) 1.0 H (0.3-0.8) 10^3/uL Eos # (Auto) 0.1 (0.0-0.7) 10^3/uL Baso # (Auto) 0.1 (0.0-0.1) 10^3/uL Abs Immat Gran (auto) 0.06 H (0.00-0.03) 10^3/uL Imm/Tot Granulo (auto) 0.3 (0.0-0.5) % Sodium 140 (136-145) mmol/L Potassium 4.1 (3.5-5.1) mmol/L Chloride 103 (98-107) mmol/L Carbon Dioxide 26.7 (21.0-32.0) mmol/L Anion Gap 14.4 BUN 11.0 (7.0-18.0) mg/dL Creatinine 0.92 (0.55-1.02) mg/dL Est GFR ( Amer) >60 (>=60 mL/min/1.73m^2) Est GFR (Non-Af Amer) >60 (>=60 mL/min/1.73m^2) BUN/Creatinine Ratio 12.0 Glucose 99 (74-106) mg/dL Calcium 9.1 (8.5-10.1) mg/dL Serum HCG, Qual Negative (NEGATIVE) Urine Color Yellow (YELLOW) Urine Clarity Clear (CLEAR) Urine pH 5.5 (5.0-9.0) Ur Specific [place] 1.025 (1.005-1.025) Urine Protein Negative (NEG/TRACE) mg/dL Urine Glucose (UA) Negative (NEGATIVE) mg/dL Urine Ketones Negative (NEGATIVE) mg/dL Urine Occult Blood Trace-i (NEGATIVE) Urine Nitrite Negative (NEGATIVE) Urine Bilirubin Negative (NEGATIVE) Urine Urobilinogen 0.2 (0.2-1.0) EU/dL Ur Leukocyte Esterase Negative (NEGATIVE) Urine RBC 0-2 (0-2) #/HPF Urine WBC 0-2 A (NONE SEEN) #/HPF Ur Squamous Epith Cells Rare (NONE/RARE) #/LPF Urine Crystals None seen (None Seen) #/HPF Urine Bacteria Small A (NONE SEEN) #/HPF Urine Casts None seen (NONE SEEN) #/LPF Urine Mucus Moderate A (NONE SEEN) Ur Culture Indicated? Yes Imaging Data US, CT: Radiologist's impression: ITS Impressions Abdomen/Pelvis CT 03/21/24 15:25 IMPRESSION: 1. Indeterminate cystic structure along the endometrial canal. Recommend further evaluation with ultrasound. 2. Bladder wall thickening may represent cystitis, correlate clinically. Electronically authenticated by: MALU BARRERA Date: 03/21/2024 17:40 Transvaginal US 03/21/24 15:25 IMPRESSION: Hypoechoic mass in the uterus along the fundal aspect of the endometrial canal. This could represent a submucosal fibroid although has a somewhat unusual echotexture. Recommend follow-up ultrasound in 3 months versus further evaluation with contrast-enhanced MRI on a nonemergent basis. Electronically authenticated by: MALU BARRERA Date: 03/21/2024 18:50 Discharge Plan Discharge Chief Complaint: Abdominal Pain Clinical Impression: Pelvic pain, Abdominal pain Patient Disposition: Home, Self-Care Time of Disposition Decision: 19:44 Condition: Good Mode of Transportation: Private Vehicle Prescriptions / Home Meds: New hydrocodone-acetaminophen 5-325 mg tablet 1 tab PO Q8H PRN (Reason: pain) 3 Days Qty: 8 0RF ibuprofen 600 mg tablet 600 mg PO Q8H PRN (Reason: pain) Qty: 20 0RF ondansetron 4 mg tablet,disintegrating 4 mg PO Q8H PRN (Reason: nausea and vomiting) Qty: 10 0RF Discontinued ibuprofen 800 mg tablet 800 mg PO Q8H PRN (Reason: pain) 14 Days Qty: 40 0RF hydrocodone-acetaminophen 5-325 mg tablet 1 tab PO Q4H PRN (Reason: pain) 4 Days Qty: 16 0RF No Action Eliquis 5 mg tablet 5 mg PO BID metoprolol succinate 25 mg tablet extended release 24 hr 25 mg PO DAILY Print Language: Chinese Instructions: Pelvic Pain (ED) Referrals: Juan Lazo DO [Physician] - 1 week Discharge Date/Time: 03/21/24 20:26
[2024-03-21 16:00] LABS: Basophils Absolute Auto 0.1 10^3/uL (0.0-0.1); Basophils Percent Auto 0.4 % (0.2-2.0); Eosinophils Absolute Auto 0.1 10^3/uL (0.0-0.7); Eosinophils Percent Auto 0.4 % (0.9-7.0); Hematocrit 42.1 % (36.0-48.0); Hemoglobin 14.2 g/dL (12.0-16.0); Immature Granulocytes Abs Auto 0.06 10^3/uL (0.00-0.03); Immature Granulocytes Pct Auto 0.3 % (0.0-0.5); Lymphocytes Absolute Auto 2.7 10^3/uL (1.2-3.8); Lymphocytes Percent Auto 15.2 % (20.5-60.0); Mean Corpuscular HGB Conc 33.7 g/dL (29.9-35.2); Mean Corpuscular Hemoglobin 30.1 pg (26.7-34.0); Mean Corpuscular Volume 89.2 fL (81.0-99.0); Mean Platelet Volume 8.5 fL (9.5-13.5); Monocytes Percent Auto 5.5 % (1.7-12.0); Neutrophils Absolute Auto 13.7 10^3/uL (1.4-6.5); Neutrophils Percent Auto 78.2 % (43.0-75.0); Platelet Count 327 10^3/uL (150-450); Red Blood Count 4.72 10^6/uL (4.20-5.40); White Blood Count 17.5 10^3/uL (4.0-11.0)
[2024-03-21] MEDS: ONDANSETRON PF 4 MG/2 ML VIAL IV (16:03)
[2024-03-21] MEDS: 0.9 % SODIUM CHLORIDE 1,000 ML 100 ML IV (16:03)
[2024-03-21] MEDS: MORPHINE SULFATE 2 MG/ML SYRINGE 4 MG IV (16:04)
[2024-03-21 16:15] LABS: Anion Gap 14.4; Calcium 9.1 mg/dL (8.5-10.1); Carbon Dioxide 26.7 mmol/L (21.0-32.0); Chloride 103 mmol/L (98-107); Estimated GFR (African America >60 (>=60 mL/min/1.73m^2); Estimated GFR (Non-African Ame >60 (>=60 mL/min/1.73m^2); Glucose 99 mg/dL (74-106); Potassium 4.1 mmol/L (3.5-5.1); Sodium 140 mmol/L (136-145)
[2024-03-21 16:22] LABS: HCG Qualitative NEGATIVE (NEGATIVE); Internal Control Within Normal Limits
[2024-03-21 17:57] LABS: Bilirubin Urine NEGATIVE (NEGATIVE); Blood Urine TRACE-I (NEGATIVE); Clarity Urine CLEAR (CLEAR); Color Urine YELLOW (YELLOW); Glucose Urine UA NEGATIVE (NEGATIVE); Ketones Urine NEGATIVE (NEGATIVE); Leukocyte Esterase Urine NEGATIVE (NEGATIVE); Nitrite Urine NEGATIVE (NEGATIVE); Protein Urine NEGATIVE (NEG/TRACE); Specific Gravity Urine 1.025 (1.005-1.025); Urobilinogen Urine 0.2 EU/dL (0.2-1.0); pH Urine 5.5 (5.0-9.0)
[2024-03-21 18:19] LABS: Bacteria Urine SMALL #/HPF (NONE SEEN); Cast Seen? NONE SEEN #/LPF (NONE SEEN); Crystals Seen? None Seen #/HPF (None Seen); Mucus Urine MODERATE (NONE SEEN); RBC Urine 0-2 #/HPF (0-2); Squamous Epithelial Cell Urine RARE #/LPF (NONE/RARE); Urine Culture Indicated YES; WBC Urine 0-2 #/HPF (NONE SEEN)
[2024-03-21] MEDS: KETOROLAC TROMETHAMINE 30 MG/ML VIAL 15 MG IVP (19:28)
== END 2024-03-21 20:26 | disposition home or self-care (01) ==
PROVIDERS: Physician Assistant; Emergency Provider Emergency Medicine
DX: R10.31 Right lower quadrant pain (principal); R10.2 Pelvic and perineal pain; F17.200 Nicotine dependence, unspecified, uncomplicated; N85.9 Noninflammatory disorder of uterus, unspecified
CPT/HCPCS: 36415; 74177; 76830; 80048; 81001; 84703; 85025; 87086; 96374; 96375; 99285; J1885; J2270; J2405; Q9966; Q9967

== ENCOUNTER 2024-03-23 16:26 | Outpatient (OUT) | payer OTHER, SELFPAY ==
--- OUTSIDE RECORDS SUMMARY | 2024-03-23 16:33 | XMS_ITS | CCD ---
Author Organization [facility] Care Team Providers Care Photographic Equipment Technician Name Role Phone DELON DE LA CRUZ Attending Unavailable DELON DE LA CRUZ Consulting Unavailable DELON DE LA CRUZ Admitting Unavailable ZANE CHERYL Consulting Unavailable ADILIA PEREZ Attending Unavailable ADILIA PEREZ Consulting Unavailable ADILIA PEREZ Admitting Unavailable OSMAR FLORES Primary Care Unavailable Suzi Hernandez Consulting Unavailable MD Trevon Pruitt Attending Provider Sajan CHEMISTRY ACCOUNT MANAGER-AGRICULTURAL SCIENCE PROFESSOR, Lashell Primary Care Provider RHEA MORENO Attending Unavailable SAJAN LASHELL Referring Unavailable SAJAN, LASHELL Primary Care Unavailable Juan Slade Attending Provider [phone] Prosper Sladey Admitting Unavailable Juan Slade Attending Unavailable Juan Slade Attending Unavailable Juan Slade Admitting Unavailable Trevon Pruitt Attending Unavailable Trevon Pruitt Admitting Unavailable CHRISTIE MCKEON Attending Unavailable CHRISTIE MCKEON Referring Unavailable SAJAN, LASHELL Primary Care Unavailable DELON PEDERSEN Attending Unavailable SAJAN, LASHELL Referring Unavailable SAJAN, LASHELL Primary Care Unavailable SAJAN, LASHELL Primary Care Unavailable ISELA NOLASCO Attending Unavailable Lashell Moeller MD Primary Care Provider JUAN SLADE Attending Unavailable JUAN SLADE Attending Unavailable ROXY GRAYSON Attending Unavailable JUAN SLADE Attending Unavailable ROXY GRAYSON Attending Unavailable Sajan COMPUTED TOMOGRAPHY TECHNICIAN-C, Lashell Gifford Attending Unavailable Sajan COMPUTED TOMOGRAPHY TECHNICIAN-C, Lashell A Primary Care Unavailable Ezekiel Wasserman Attending Unavaila Ezekiel Fontanez Admitting Unavaila ble Sajan COMPUTED TOMOGRAPHY TECHNICIAN-C, Lashell A Primary Care Unavailable Sajan CHEMISTRY ACCOUNT MANAGER-AGRICULTURAL SCIENCE PROFESSOR, Lashell Primary Care Provider Lashell Miranda Primary Care Provider Allergies Allergy Classification Reported Allergen(s) Allergy Type Date of Onset Reaction(s) Facility (3 sources) Sulfamethoxazole Allergy to substance 03-03-19 [facility] (3 sources) Trimethoprim Drug Allergy 03-03-19 [facility] (1 source) No Known Medication Allergies; Translations: [No Known Medication Allergies] Propensity to adverse reactions to drug (disorder) [facility] Repository Medications Current Medications Medication Drug Class(es) Dates Sig (Normalized) Sig (Original) acetaminophen 32 mg/ml oral solution (13 sources) Start: 02-17-2023 acetaminophen (Tylenol) 160 MG/5ML liquid 02/17/2023 Active Start: 07-27-2018 acetaminophen (TYLENOL) tablet 650 mg apixaban 5 mg oral tablet (14 sources) Factor Xa Inhibitor Start: 06-01-2023 take 1 tablet by mouth twice daily at bedtime apixaban (ELIQUIS) 5 mg tablet Indications: Atrial flutter, unspecified type ([facility]) TAKE 1 TABLET BY MOUTH TWICE A DAY (MORNING AND BEFORE BEDTIME) 180 tablet 1 06/01/2023 Active Start: 11-30-2022 End: 06-01-2023 take 1 tablet by mouth once daily at bedtime apixaban (Eliquis) 5 MG tablet TAKE ONE TABLET BY MOUTH EVERY MORNING AND BEFORE BEDTIME 11/30/2022 Active cetirizine hydrochloride 10 mg oral tablet (3 sources) Histamine-1 Receptor Antagonist Start: 02-15-2023 cetirizine (ZyrTEC) 10 MG tablet 02/15/2023 Active levonorgestrel 0.829204 mg/hr intrauterine system (9 sources) Progestin, Progestin-containing Intrauterine Device Start: 02-17-2023 Levonorgestrel (Mirena, 52 MG,) 20 MCG/DAY intrauterine device 52 mg 02/17/2023 Active Start: 02-17-2023 End: 08-18-2023 levonorgestreL (MIRENA) 21 m cg/24 hours (8 yrs) 52 mg IUD 1 each. 02/17/2023 08/18/2023 Discontinued (Therapy completed) 24 hr metoprolol succinate 25 mg extended release oral tablet (14 sources) beta-Adrenergic Yung Start: 08-18-2023 take 1 tablet by mouth every twenty-four hours in the morning metoprolol succinate XL (TOPROL XL) 25 mg 24 hr tablet Take 1 tablet (25 mg total) by mouth in the morning. 90 tablet 3 08/18/2023 Active Start: 08-10-2022 End: 08-18-2023 take 1 tablet by mouth every twenty-four hours in the morning metoprolol succinate XL (TOPROL XL) 25 mg 24 hr tablet Take 1 tablet (25 mg total) by mouth in the morning. 90 tablet 3 08/18/2023 Active Problems Active Problems Problem Classification Problem Date Documented Date Episodic/Chronic Abdominal pain (5 sources) Left lower quadrant pain; Translations: [Abdominal pain] Onset: 11-29-2023 01-20-2024 Episodic Cardiac dysrhythmias (20 sources) Paroxysmal atrial fibrillation; Translations: [Paroxysmal atrial fibrillation] Onset: 04-17-2020 04-15-2023 Chronic Other aftercare (2 sources) Patient encounter status; Translations: [Encounter for follow-up examination after completed treatment for conditions other than malignant neoplasm] 01-20-2024 Episodic Other circulatory disease (10 sources) History of cardiovascular surgery; Translations: [Presence of other cardiac implants and grafts] Onset: 07-10-2020 07-10-2020 Chronic Other female genital disorders (2 sources) History of gynecological disorder; Translations: [Personal history of other diseases of the female genital tract] 01-20-2024 Episodic Other nervous system disorders (4 sources) Dysarthria and anarthria; Translations: [DYSARTHRIA AND ANARTHRIA] Onset: 03-23-2020 Episodic Substance-related disorders (2 sources) Cannabis abuse, uncomplicated; Translations: [Nicotine dependence, cigarettes, uncomplicated] Onset: 03-26-2020 Chronic Syncope (13 sources) Near syncope; Translations: [Syncope and collapse] Onset: 06-22-2017 04-15-2023 Episodic Transient cerebral ischemia (1 source) Transient cerebral [...] 02-02-2023 Episodic Other and unspecified benign neoplasm (10 sources) Lipoma of back; Translations: [Benign lipomatous neoplasm of skin and subcutaneous tissue of trunk] Onset: 08-08-2018 08-08-2018 Episodic Other lower respiratory disease (4 sources) Shortness of breath; Translations: [SHORTNESS OF BREATH] Onset: 05-11-2019 Episodic Other lower respiratory disease (10 sources) Dyspnea; Translations: [Shortness of breath] Onset: 06-24-2017 06-24-2017 Episodic Other lower respiratory disease (1 source) Shortness of breath Onset: 08-18-2023 Episodic Other skin disorders (10 sources) Mass of subcutaneous tissue of back; Translations: [Localized swelling, mass and lump, trunk] Onset: 06-21-2018 06-21-2018 Episodic Urinary tract infections (10 sources) Pyelonephritis; Translations: [Tubulo-interstitia l nephritis, not specified as acute or chronic] Onset: 04-02-2020 04-02-2020 Episodic Results Test Name Value Interpretation Reference Range Facility Outside Recordson 02-03-2024 Outside Records [id number] GTIFF Normal [facility] CBC AND AUTO DIFFon 11-29-19 ABSOLUTE BASOPHIL 0.1 X10E9/L Normal 0.0-0.2 [facility] Comment on above: Performed By: #### C BCA, CMP #### [facility] ([id number]) [address] [place] [address], [place] [address] ABSOLUTE NEUTROPHIL 4.6 X10E9/L Normal 1.5-6.6 [facility] Comment on above: Performed By: #### C BCA, CMP #### [facility] ([id number]) [address] [place] [address] 39094 Basophils/100 WBC (Bld) 1.5 % Normal [facility] Comment on above: Performed By: #### C BCA, CMP #### [facility] ([id number]) [address] [place] [address] 49244 Eosinophils (Bld) [#/Vol] 0.2 10*3/uL Normal 0.0-0.4 [facility] Comment on above: Performed By: #### C HINA, CMP #### [facility] ([id number]) [address] [place] [address] 27069 Eosinophils/100 WBC (Bld) 2.1 % Normal [facility] Comment on above: Performed By: #### C HINA, CMP #### [facility] ([id number]) [address] [place] [address] 89764 Erythrocyte distribution width (RBC) [Ratio] 13.1 % Normal 11.5-15.0 [facility] Comment on above: Performed By: #### C HINA, CMP #### [facility] ([id number]) [address] [place] [address] 90195 Hematocrit (Bld) [Volume fraction] 41.7 % Normal 35-47 [facility] Comment on above: Performed By: #### C HINA, CMP #### [facility] ([id number]) [address] [place] [address] 44823 Hemoglobin (Bld) [Mass/Vol] 14.2 g/dL Normal 11.7-15.5 [facility] Comment on above: Performed By: #### C BCA, CMP #### [facility] ([id number]) [address] [place] [address] 30567 Lymphocytes (Bld) [#/Vol] 4.1 10*3/uL High 1.0-3.5 [facility] Comment on above: Performed By: #### C HINA, CMP #### [facility] ([id number]) [address] [place] [address] 40412 Lymphocytes/100 WBC (Bld) 42.0 % Normal [facility] Comment on above: Performed By: #### C HINA, CMP #### [facility] ([id number]) [address] [place] [address] 78820 MCH (RBC) [Entitic mass] 30.2 pg Normal 27-34 [facility] Comment on above: Performed By: #### C HINA, CMP #### [facility] ([id number]) [address] [place] [address] 31207 MCHC (RBC) [Mass/Vol] 34.1 g/dL Normal 32-36 [facility] Comment on above: Performed By: #### C HINA, CMP #### [facility] ([id number]) [address] [place] [address] 74685 MCV (RBC) [Entitic vol] 89 fL Normal 80-100 [facility] Comment on above: Performed By: #### C HINA, CMP #### [facility] ([id number]) [address] [place] [address] 78743 Monocytes (Bld) [#/Vol] 0.7 10*3/uL Normal 0-0.9 [facility] Comment on above: Performed By: #### C BCA, CMP #### [facility] ([id number]) [address] [place] [address] 57313 Monocytes/100 WBC (Bld) 7.3 % Normal [facility] Comment on above: Performed By: #### C BCA, CMP #### [facility] ([id number]) [address] [place] [address] 79516 Neutrophils/100 WBC (Bld) 47.1 % Normal [facility] Comment on above: Performed By: #### C BCA, CMP #### [facility] ([id number]) [address] [place] [address] 01840 Platelet mean volume (Bld) [Entitic vol] 6.5 fL Low 7-12 [facility] Comment on above: Performed By: #### C BCA, CMP #### [facility] ([id number]) [address] [place] [address] 91847 Platelets (Bld) [#/Vol] 367 10*3/uL Normal 150-450 [facility] Comment on above: Performed By: #### C BCA, CMP #### [facility] ([id number]) [address] [place] [address] 81618 RBC COUNT 4.71 X10E12/L Normal 3.80-5.20 [facility] Comment on above: Performed By: #### C BCA, CMP #### [facility] ([id number]) [address] [place] [address] 49103 WBC (Bld) [#/Vol] 9.8 10*3/uL Normal 4.0-11.0 [facility] Comment on above: Performed By: #### C BCA, CMP #### [facility] ([id number]) [address] [place] [address] 87494 COMPREHENSIVE METABOLIC PANE [facility] 11-29-2023 Albumin [Mass/Vol] 4.0 g/dL Normal 3.2-5.3 [facility] Comment on above: Performed By: #### C BCA, CMP #### [facility] ([id number]) [address] [place] [address] 34606 ALP [Catalytic activity/Vol] 66 U/L Normal 39-130 [facility] Comment on above: Performed By: #### C BCA, CMP #### [facility] ([id number]) [address] [place] [address] [place] [address] ALT [Catalytic activity/Vol] 19 U/L Normal 0-31 [facility] Comment on above: Performed By: #### C BCA, CMP #### [facility] ([id number]) [address] [place] [address] 96017 Anion gap [Moles/Vol] 10 mmol/L Normal 5-15 [facility] Comment on above: Performed By: #### C BCA, CMP #### [facility] ([id number]) [address] [place] [address] 35618 AST [Catalytic activity/Vol] 19 U/L Normal 0-41 [facility] Comment on above: Performed By: #### C BCA, CMP #### [facility] ([id number]) [address] [place] [address] [place] [address] Bilirubin [Mass/Vol] 0.4 mg/dL Normal 0.3-1.2 [facility] Comment on above: Performed By: #### C BCA, CMP #### [facility] ([id number]) [address] [place] [address] 99797 Calcium [Mass/Vol] 9.3 mg/dL Normal 8.5-10.5 [facility] Comment on above: Performed By: #### C BCA, CMP #### [facility] ([id number]) [address] [place] [address] [place] [address] Chloride [Moles/Vol] 101 mmol/L Normal 98-109 [facility] Comment on above: Performed By: #### C BCA, CMP #### [facility] ([id number]) [address] [place] [address] [place] [address] CO2 [Moles/Vol] 27 mmol/L Normal 22-32 [facility] Comment on above: Performed By: #### C BCA, CMP #### [facility] ([id number]) [address] [place] [address] 38520 Creatinine [Mass/Vol] 0.80 mg/dL Normal 0.40-1.00 [facility] Comment on above: Result Comment: METH OD TRACEABLE TO IDMS STANDARD Performed By: #### C BCA, CMP #### [facility] ([id number]) [address] [place] [address] 34072 eGFR (CKD-EPI) NON-RACE DEPENDENT >90 Normal >59 [facility] Comment on above: Result Comment: Reported eGFR is based on the CKD-EPI 2020 equation that does not use a race coefficient. Performed By: #### C BCA, CMP #### [facility] ([id number]) [address] [place] [address] 89710 Glucose [Mass/Vol] 96 mg/dL Normal 65-99 [facility] Comment on above: Performed By: #### C BCA, CMP #### [facility] ([id number]) [address] [place] [address] 67680 Potassium [Moles/Vol] 3.5 mmol/L Normal 3.5-5.0 [facility] Comment on above: Performed By: #### C BCA, CMP #### [facility] ([id number]) [address] [place] [address] 92211 Protein [Mass/Vol] 7.3 g/dL Normal 6.0-8.0 [facility] Comment on above: Performed By: #### C BCA, CMP #### [facility] ([id number]) [address] [place] [address] 17109 Sodium [Moles/Vol] 138 mmol/L Normal 134-146 [facility] Comment on above: Performed By: #### C BCA, CMP #### [facility] ([id number]) [address] [place] [address] 16680 Urea nitrogen [Mass/Vol] 16 mg/dL Normal - [facility] Comment on above: Performed By: #### C BCA, CMP #### [facility] ([id number]) [address] [place] [address] ABDOMEN AND PELVIS W CONT on [...] Hwang MD on 11/29/2023 8:52 PM Normal [facility] HCG ( test) Ql (U)o n 11-29-2023 Beta HCG ( test) Ql (U) Negative Normal NEG [facility] Comment on above: Performed By: #### 2 106-3 #### [facility] ([id number]) [address] [place] [address] 80970 URN MACROSCOPIC NURon 2023 BILIRUBIN TARIK Negative Normal NEG [facility] Comment on above: Performed By: #### N UM #### [facility] ([id number]) [address] [place] [address] 56844 BLOOD/HGB TARIK Trace Abnormal NEG [facility] Comment on above: Performed By: #### N UM #### [facility] ([id number]) [address] [place] [address] 45674 GLUCOSE TARIK Negative Normal NEG [facility] Comment on above: Performed By: #### N UM #### [facility] ([id number]) [address] [place] [address] [place] [address] KETONES TARIK Negative Normal NEG [facility] Comment on above: Performed By: #### N UM #### [facility] ([id number]) [address] [place] [address] 23715 LEUKOCYTE ESTERASE TARIK Negative Normal NEG [facility] Comment on above: Performed By: #### N UM #### [facility] ([id number]) [address] [place] [address] [place] [address] NITRITE TARIK Negative Normal NEG [facility] Comment on above: Performed By: #### N UM #### [facility] ([id number]) [address] [place] [address] 02740 PH TARIK 7.0 Normal 5.0-8.5 [facility] Comment on above: Performed By: #### N UM #### [facility] ([id number]) [address] [place] [address] 35633 PROTEIN TARIK Negative Normal NEG [facility] Comment on above: Performed By: #### N UM #### [facility] ([id number]) [address] [place] [address] 74384 SPECIFIC GRAVITY TARIK 1.025 Normal 1.003-1.035 [facility] Comment on above: Performed By: #### N UM #### [facility] ([id number]) [address] [place] [address] [place] [address] UROBILINOGEN TARIK 0.2 eu/dL Normal <1.1 [facility] Comment on above: Performed By: #### N UM #### [facility] ([id number]) [address] [facility], [place] [address] Outside Recordson 09-01-2023 Outside Records [id number] GTIFF [facility] Outside Recordson 05-03-2023 Outside Records [id number] TIFF [facility] Abner 04-30-2023 L Specimen: [id number] Received: 05/03/23 Status: SALIMA Kilpatrick Num: [id number] Spec Type: Surgical Subm Dr: Juan Slade Tissues: A Fallopian Tube - Sterilization (BILATERAL FT) Procedures: HE/2, Gross/Micro L2 Age/ Patient Sex Location Account Attending Physician Ariel Salas 38/F [facility] [id number] Juan Slade SPEC NUM: [id number] RECD: 05/03/23 STATUS: SALIMA KILPATRICK NUM: [id number] CRISTINA: 04/30/[address]: Juan Slade ENTERED: 05/03/23 [facility] DR: Ajit,Lab SPEC TYPE: Surgical [...] an unremarkable, pinpoint lumen on cut section. Online Content Developer sections are submitted in two cassettes labeled A1-A2. CPT Codes 40654 Specimen: [id number] Received: 05/03/23 Status: SALIMA Kilpatrick Num: [id number] Spec Type: Surgical Subm Dr: Juan Slade Tissues: A Fallopian Tube - Sterilization (BILATERAL FT) Procedures: Shaina OCAMPO/James L2 Patient: Ariel Salas [id number] (Continued) Signed (signature on file) Micheal Napier MD 05/04/23 1431 [facility] POCT EKGOrdered By: Keily Herrera on 04-15-2023 [facility] Abner 04-07-2023 L Specimen: [id number] Received: 04/08/23 Status: SALIMA Riversrachele Num: [id number] Spec Type: Surgical Subm Dr: Juan Slade Tissues: A Endometrium - Biopsy (EMBX) Procedures: HE/2, Gross/Micro L4 Age/ Patient Sex Location Account Attending Physician Ariel Salas 38/F [facility] [id number] Juan Slade SPEC NUM: [id number] RECD: 04/08/23 STATUS: COURTNEYElo KILPATRICK NUM: [id number] CRISTINA: 04/07/23- SUBM DR: Juan Slade ENTERED: 04/08/23 [facility] [address]: Ajit,Lab SPEC TYPE: Surgical [...] in one cassette labeled A1. CPT Codes 51594 Specimen: [id number] Received: 04/08/23 Status: COURTNEYElo Kilpatrick Num: [id number] Spec Type: Surgical Subm Dr: Juan Slade Tissues: A Endometrium - Biopsy (EMBX) Procedures: Shaina OCAMPO/James L4 Patient: Ariel Salas [id number] (Continued) Signed (signature on file) Micheal Napier MD 04/10/23 1211 [facility] Coding Summaryon 03-04-2023 Coding Summary HTMLBase 64 MhemzwarMEu9vTm+PGhlYWQ+ BW3GSGZrO75idXXfdM8mQ9EO TElOSywgQVBQTElOSyIgbmFt AG2cbEJtSMDx IC8+VV6yCTZtEhwkqEWbc1J9 pFT2W08mwg5gDGjbnTH6NJSp DeBfstdiy0kyqNs7VWqcXthv OyBt XKUkoS15BWR3kX72Ip84hVEe jMEsj1uucHh6CjXhYEJsFXR4 iHoyUGtrn3OnVZAzL52epYRm c2U6 YODshYxfgOGsZwGpjEQ4wQ8r JQsbetyya8qmplixNzr1hb29 cKAdu6F0eKF6P1QzilL3ATAw bGQg UhnpsTHOuM9lxfpqa7rhzsun CsIaGULlJCf3LRo5OYGbcBor LhFtXG41NCO4APItzpKyS6Cv LWFs sMofTmT9q3L9Bg9TO7BKJntg L3HKBWQSRQxklZC+SN60se38 X5LcTndnMfp2VIXzMYL6zEG6 aD0n LTXjMIdnx6W9eIO1P4XrllLv qf9az5coIQNyGBdrX93sqUKv g8F0DZOzfEO9CTPqhQcaNdQf aG93 Oyc+NHLxyGwze4LiMjiph9wa w0zrxJq5QfpqQHOlcrLoqAgf YTD1l0CmXt8eZAClhKP5wGY8 aD0i BwCnHlV6WKisD254HuJlaWVo TnprV45pQ6XzmDX+PHRyPjx0 GFDcdKtoCV4qF6OjBEVwkqzf bGVm oIkoGS0gYLSgqbswQNMbjV4v WWPmD3f7MuGjRkP5DDlbA2Wk OZTknaacLs59cE3uBzUfXtM0 MGlu D2FjyiM6OVJrwGMaFSakBTS0 Y42yr6H8EYKpOBSsODG7vZK7 nB9mcJcjpsrguFOrmTuojaIq dGlj NFysACkcS053TOXywJurIqGe ZGluZyBEYXRlOiAgMDEvMjUv MjAyNDwvdGQ+COCjWWP0cCzz PSAn gHSxUNctGc9jmHnwdKfsOB7j SIOizmvyDZYsfO5sFCGuoULt fUffYH0lOUMtbnpss793VrIb MHB0 NZXsgZLoS8WugG6cNmCwQSAq KFJfN9YrxJJhNMddQ907CQjg GoA3BVPxjpCjE2DyTRGmjKvi OiB0 n4H0Hu9Oy5GjhzthJ2TmbARa PwArHerzCDd5V0EtRbgexYZ+ HH75JUDeXL22YWc0QYI7eTcl PSdi NGIzE4OwyD8pLaHfZKIfLBUs Oyc+PHRhYmxlIHdpZHRoPScx QKEpFwTacRmjUZ9tKo4mMCRt LWNv eNgmcYUxXpTmq4saLSUmCXfa YV6xzAdqN6MipSE7WYHdz0o2 In18N94kF8GvtGA+PGNvbCB3 aWR0 sG8aTbZkRnT5ESaoF316EzGj qNIfCaehj7kgr1rfyVp4DtZ7 JZVjbyPwhLkpTFP7e3XkAw07 Y29s IHdpZHRoPSIxNSUiIHZhbGln iv4dmV7vEo0+PFZnaAE6lCH5 xA5iQrGaVjO1QNgqS719EnVo cCIv Rwiqv6uhy8jpfBu8GqGxIMPq fwNhiBxoWEI9p4KvSv49K0Cw qDbov2RaXut8uy62hZRni4O4 bGU9 V7YuRGUswezxwNHkjIpcEV9q XDYdnxcoYTSluG7uMOTnZ9k4 EiVkIvD6PEyuX4AlrxM8ZDVs bGQg THMlkYUDuF2betxum6wmxhnl MdZuPQFxWBa2WOe6YUYmgKyv ClTsYSU1VjF5OVE5nWVbcJ4p bGln jvaltF2hNng+LNG5kYOryPKG FK7gDrgmdDA+XEFhGPS3dVbn HOhdTJXroI0sDEYuL6d7ZzRl LjA1 WCnxM4EosvX7YGWgjXSiNOSh wCYXpD8vkfxxu9bcnvxqZtFn DCXbXZr8SNk2SSLbbTgeViKr ZWZ0 QkH7BML8iWHrxW1xnPuefbcv nM1mOwc+XjgneNalMNE9GKk4 D2EwQui0FYWbcOfuMP5jqRCv ZGlu Ch9qbOaatLquKR1cGKRfkjog a003LyVjw4vyAZJxuWPiBSfg CJH4K89ua6J4XBClSIXgLFX4 dGV4 zF9fgEmnvforsLIfyMdhieYu hJisCSglRHxwW746XAYdlYvi UrCeBNp0C3GeOzr9GENbeBdr ZT0n gKStTOtlKq0dgQdthLajQV6l PADkqxxhb232EwOrt6clKZWy qKLtOMfnHTM4Y44fs1Q5JXWv MDAw INX8rFV7wT6zpZbsvkvlmVQe bNlsbfElnXnvBJakAVgkX445 XEYqfBniUwPrgJw2N7HcJbs1 ZCBz eWuiZD9upEAlISxwHw2vlJwz jRcnKW8oYVLbdwazi534RhPy o5dkTTFmvODxTZzxMKR7Q41y b3I6 TWRlXUZsVEV2kZA0wV8ryRyj bjogbGVmdDsgdmVydGljYWwt ATegY262AWDufOepCfRujYwx bnQg RYyxMNp9P6DaBhwajUK+PC90 UHKlAD31gULqzADvp7gamBp4 QjQjBRHbLZG5dGniRTlkr6Iw ZXIt J37kuUUja5Z2KYClmKnikEOk ZxKcyFH4cT5kPTeizglie8la zrnaXwabj9bmgw67nU73B96o IHdp XQBzIZJiOOQjEPVrdHuujw7k yM6eNx1+FYThtUD6yMZ5xP8x JFTlMyH1JBkgG819GyWlbEHu Pjxj f1yrd6ujvAo8NpR4YERictVl xQpvNGK3u6TeDz05K96tIFfx SYCwAIUxYVOsEMZmcTarhu8j dG9w Ii8+OZRdrCW6aMQ9zN7iBjTr OnJ1JFeyO118CdYwoGJrPzji L48pT3AztMS+WKJhZgk9UMZe dHls PJ0coJMgWEydKb8mHLA6XxFv JoTvDGobR6NyRABzxevbmrdz mHB3XZMjUFKolW97Yb1ikPaw MTBw iMAYxD4wcymml2qlckkiQwIh XQQpUZa0XGw4IACuqMxbMpXq SCD9PgY3TXY6uANokM4ylAzs bjog eC0lG9NeQIHszieqLr05xH0s NnIgAeF1PTlwUdo+TUlMTEVS LCBTSEFXTkVMTEUgRTwvdGQ+ PHRk IQF9qPrfPDmuFQFyfI2zEXIe B9k6PgKaPrL5NVflP9GzPTPb tuqsOe07rU6vIvHyEzB0NWnc O2Zv fkU1TNMryUIxHUzkOWK3R64o n1L5YUWjTKWzOUB0qKM0dW0n bGlnbjogbGVmdDsgdmVydGlj YWwt MNfiX705XRAfaXxcBgWwZjJi NuX3PHz5P5VsLjr8RTYcsLdm BR4gsIQaYJqfTx1ibCzqaSuy MC4w QIEtcdqkTHSmlU4eNHFexNNl cTpbPW2bNBOrfabwu193RqSv VFG9ETQceMJlH3TszX4kWmAy MDAw JEVmA3EmyTHlHUkbV755FDiz FnL0POPdxpBmC0PyPJJqcTnw IbN4g1G5Dg6tRHTKVYKhodnd dGQ+ LGKuLBY6nEbgOHovIQJppK9s YBMhQ0i9SoGoZcL8CZomU2Oi QIWuracgGp21lW2aYjLmDnT5 MGlu W4RpylM5OOBvhNTvAFbxIGA9 G05jm3P2SQViESAoPCL9kMA7 tW0dbEblghpdnAJjqTrelbPl dGlj NTpyNGjdT994CMJrfGnaGeIE TUFMRTwvdGQ+TZZfEET0dZxp QYkpYQCzkI1eNYArK7s5UdOy LjA1 KOvmM6PtWUIbdpeiSv81mJ7e FcNsDgZ1MDhgQ4ZlaxY2YOPo hMIsPMikOTJ4Y54or7P7TYWf MDAw RGA8sXJ0rZ6zyCjnavawoMPj nHqurfUmdJycQEgyQJqhZ159 OPRneZhwIh7JEM65BK38H7Jh Pjwv dGFibGU+PHRhYmxlIHdpZHRo YOksYXBnDjDaaIfoDO8qZb0u OIHyBSNnfQwpnLBbRsClm9ax YXBz FEdbTY4wrQavV8VdpRM5MBGa y7i6Pf62Q91cY7WqaQK+PGNv mUY3kMT7iZ6mWpTtVkH9DWbm Z249 KvEejGSgMnirm9uce3cuuQu3 VjSnNPHxzlWyoWlmIMI9w3Af Ws28R78oSXvoZEXfLELxAEZt IHZh eSgoty2roG0sUt3+PGNvbCB3 gIG2tS3rTcTmRmO9QYjqH037 TrVswFVkDvubW51tM8XuaAN+ PHRy Yco3CGWtuHqgEI8pkWVySLmz Lq8dKPW0LnFxInLkBRulL4Gg SVVhzfumqllduAI6BZBtWWLm aW47 Ky5dfDeeUw9lDMGeXPJ4HHIz aYCxK5SviX7zXbHrNZKkSNRy A1ZroFBqSSchY005JCubHlU7 IHZl nmTfD4IlTPSmkDcyMbA5k0W5 Xe2ZyNjjhSTrSN2cViJrAZn0 I6YvTai7ECXquGnlDW5hyKYt ZGlu Qb5dmBoppJtlSW9vIKPuchdt p900YzKqc0evCNKadIKyUVok ANR3U53qj1V2WYFpPWJxSCV6 dGV4 jA4nvHdfgatxiPPeeYsgmuVw bBlaUPhuTWxhS544PEMcxUoj PeEEQxk1W9GjJws6XCNjgSne ZT0n eZIfYKaeQn9liAdyhUvoTQ1b ZHWxzzpbl779NwCyk5tkTXHt jQSzTEvlLCQ6Z06ez9T8RZIm MDAw YYR5yMP3yV0owJokhjhkdYEs wPbkfhSvrNecHLchVHpuE749 UGAzqXqoIk8DRkv9M8AoRth5 ZCBz zXxhEV9ugOHlLZclHt9hlZcq aLokBZ1aFFUfjsuih802YbDa k0kxKLWniCGbBJhmSLY7D87c b3I6 YIAhMLWkCKA5eXY3yE4yyLsn bjogbGVmdDsgdmVydGljYWwt MJcdB049YUAjjXveSbBcpJMf Ojwv dGQ+LN68pv36T5WpPvtqDiw4 PGNiSRH2hBX3zO4tXUWzAUuc l9D8yIU5X2DderFmcw8rl2es YXBz ZTo (more content not included)... Normal [facility] Patient Handouton 02-17-2023 Patient Handout Dermatology [...] instructions at home: ? Take or apply bizj-dem-vjalgrn and prescription medicines only as told by [...] provider. Document Revised: 07/22/2021 Document Reviewed: 11/20/2020 [employer] Patient Education ? 2021 [employer] Normal [facility] ED Clinical Summaryon 2023 ED Clinical Summary [facility] ? Urgent Care [address] [place], [place] [id number] Clinical Summary PERSON INFORMATION Name: ARIEL SALAS Age: 37 Years Sex: FEMALE : 1985 MRN: Acct#: Visit Reason: Skin; RASH Arrival: 02/15/2023 11:21:04 Discharge: 02/15/2023 12:00:00 LOS: 000 00:39 Check In: 02/15/2023 11:21:04 Checkout: 02/15/2023 12:00:00 Address: [address] [place] [id number] PCP: Lashell Tanner PROVIDER INFORMATION Provider Role Assigned Unassigned Nallely Crow [employer] TE[employer]ER Nurse 02/15/2023 11:28:03 Ezekiel Wasserman ED PA [...] Adult Follow-Up: With: Address: When: Lashell Tanner [address] [place] [id number] Within 3 to 5 days Comments: Diagnosis [...] verbalizes understanding of instructions given Comment: Normal [facility] ED Patient Summaryon 024 ED Patient Summary [facility] ? Urgent Care [address] [place] [id number] PATIENT DISCHARGE INSTRUCTIONS Patient Information Name: ARIEL SALAS Age: 37 Years Date of : 1985 Reason For Visit: Skin; RASH Arrival Time: 02/15/2023 11:21:04 Primary Care Physician: Lashell Tanner Attending Physician: Ezekiel Wasserman Comment: Patient Education With: Address: When: Lashell Tanner [address] [place] [address] Within 3 to 5 days Comments: Diagnosis [...] develop this condition: ? Living in a fdc or other extended care facility. ? Having [...] at home: Medicines ? Take or apply wxjv-icq-iskcnic and prescription medicines only as told by [...] care provid (more content not included)... Normal [facility] Recordon 024 Urgent Care Record [facility] ? Urgent Care [address] [place] [address] PATIENT DISCHARGE INSTRUCTIONS Patient Information Name: ARIEL SALAS Age: 37 Years Date of : 1985 Reason For Visit: Skin; RASH Arrival Time: 02/15/2023 11:21:04 Primary Care Physician: Lashell Tanner Attending Physician: Ezekiel Wasserman Comment: Visit Diagnosis: Diagnoses This Visit Scabies (B86) Skin ([id number]) If you received any narcotics, sedation, or [...] documents With: Address: When: Lashell Tanner [address] [place] [address] Within 3 to 5 days Comments: Diagnosis [...] and treatment you received today in the [facility] were for an urgent problem and are not intended as complete care. It is important for you to follow up with a doctor, nurse practitioner, or physician?s assistant store manager trainee for ongoing care. If your symptoms become [...] so we can reach you if necessary. [facility] has provided you with a complete list of medications post discharge. Please inform your cardiac technologist/provider of your visit and for further instruction on these medications. Any specific questions regarding your chronic medications and dosages should be discussed with your primary care physician(s) and/or pharmacist. New Medications [facility] [id number], [address], [place] [id number], [phone] cetirizine (ZyrTEC 10 mg oral tablet) 1 [...] then vomi (more content not included)... Normal [facility] MR WRIST RT WO CONTon 2022 [...] Loy Cuba MD on 02/03/2023 10:41 AM Normal [facility] 07-15-2022 L ---- Specimen: [id number] Received: 07/15/22 Status: SALIMA Kilpatrick Num: [id number] Spec Type: Surgical Subm Dr: Trevon Pruitt MD Tissues: A BREAST CORE NO CALCS (LT BREAST BX) Procedures: HE/3, Gross/Micro L4, CK5 6, ER, p63 Age/ Patient Sex Location Account Attending Physician Ariel Salas 37/F KELVIN [id number] Trevon Pruitt MD SPEC NUM: [id number] RECD: 07/15/22 STATUS: SALIMA KILPATRICK NUM: [id number] CRISTINA: 07/15/22 [facility] DR: Trevon Pruitt MD ENTERED: 07/15/22-0 [facility] DR: Vitaly,Lab SPEC TYPE: Surgical [...] Time: 0 Formalin Fixation Time: 9.42 Specimen: [id number] Received: 07/15/22 Status: SALIMA Kilpatrick Num: [id number] Spec Type: Surgical Subm Dr: Trevon Pruitt MD Tissues: A BREAST CORE NO CALCS (LT BREAST BX) Procedures: HE/3, Gross/Micro L4, CK5 6, ER, p63 Patient: Ariel Salas [id number] (Continued) Specimen: [id number] Received: 07/15/22 (Continued) Signed (signature on file) Mary Jeffers MD 07/17/22 1057 Specimen: [id number] Received: 07/15/22 Status: SALIMA Kilpatrick Num: [id number] Spec Type: Surgical Subm Dr: Trevon Pruitt MD Tissues: A BREAST CORE NO CALCS (LT BREAST BX) Procedures: HE/3, Gross/Micro L4, CK5 6, ER, p63 Patient: Ariel Salas [id number] (Continued) Specimen: [id number] Received: 07/15/22 (Continued) Microscopic Description Two H E slides reviewed. The microscopic examination confirms the diagnosis. Immunostains for ER p53 and cytokeratin 5/6 are performed with adequate controls immunohistochemical and microscopic patents confirms the above diagnosis. Intradepartmental consultation with a second pathologist (JERRI) who agrees with the diagnosis. CPT Codes 98420, 93976, 31265r3 Specimen: [id number] Received: 07/15/22 Status: SALIMA Kilpatrick Num: [id number] Spec Type: Surgical Subm Dr: Trevon Pruitt MD Tissues: A BREAST CORE NO CALCS (LT BREAST BX) Procedures: HE/3, Gross/Micro L4, CK5 6, ER, p63 Patient: Ariel Salas [id number] ([facility]) Signed (signature on file) Mary Jeffers MD 07/17/22 1057 [facility] CBC AUTO DIFFon 03-23-2020 Basophils (Bld) [#/Vol] 0.1 103/ul Normal 0.0-0.1 [facility] Comment on above: Performed By: #### C BC #### [facility] [address] [place], [place] [address] Akin [place]ysha Basophils/100 WBC (Bld) 0.6 % Normal 0.2-2.0 [facility] Comment on above: Performed By: #### C BC #### [facility] [address] [place], [place] [address] A[place]ys[place] Eosinophils (Bld) [#/Vol] 0.2 103/ul Normal 0.0-0.7 [facility] Comment on above: Performed By: #### C BC #### [facility] [address] [place], [place] [address] [place] Eosinophils/100 WBC (Bld) 2.3 % Normal 0.9-7.0 [facility] Comment on above: Performed By: #### C BC #### [facility] [address] [place], [place] [address] [place] Erythrocyte distribution width (RBC) [Ratio] 12.2 % Normal 11.0-15.0 [facility] Comment on above: Performed By: #### C BC #### [facility] [address] [place] [id number] Akin Aysha Hematocrit (Bld) [Volume fraction] 43.4 % Normal 36.0-48.0 [facility] Comment on above: Performed By: #### C BC #### [facility] [address] [place], [place] [id number] [place] Hemoglobin (Bld) [Mass/Vol] 14.4 g/dL Normal 12.0-16.0 [facility] Comment on above: Performed By: #### C BC #### [facility] [address] [place], [place] [address] Akin Aysha IG # 0.03 10e3/ul Normal 0.00-0.03 [facility] Comment on above: Performed By: #### C BC #### [facility] [address] [place], [place] [address] A[place]ha IG % 0.3 % Normal 0.0-0.5 [facility] Comment on above: Performed By: #### C BC #### [facility] [address] [place], [place] [phone] A[place]ha Lymphocytes (Bld) [#/Vol] 3.8 103/ul Normal 1.2-3.8 [facility] Comment on above: Performed By: #### C BC #### [facility] [address] [place], [place] [phone] A[place]ha Lymphocytes/100 WBC (Bld) 37.3 % Normal 20.5-60.0 [facility] Comment on above: Performed By: #### C BC #### [facility] [address] [place], [place] [phone] Akin [place]ha MANUAL DIFF REQ NO Normal [facility] Comment on above: Performed By: #### C BC #### [facility] [address] [place], [place] [phone] A[place]ha MCH (RBC) [Entitic mass] 30.9 pg Normal 26.7-34.0 [facility] Comment on above: Performed By: #### C BC #### [facility] [address] [place], [place] [address] Akin Aysha MCHC (RBC) [Mass/Vol] 33.2 g/dL Normal 29.9-35.2 [facility] Comment on above: Performed By: #### C BC #### [facility] [address] [place] [address] Akin Aysha MCV (RBC) [Entitic vol] 93.1 fL Normal 81.0-99.0 [facility] Comment on above: Performed By: #### C BC #### [facility] [address] [place] [address] A[place]ysha Monocytes (Bld) [#/Vol] 0.9 103/ul Critically high 0.3-0.8 [facility] Comment on above: Performed By: #### C BC #### [facility] [address] [place], [place] [address] Akin Aysha Monocytes/100 WBC (Bld) 8.7 % Normal 1.7-12.0 [facility] Comment on above: Performed By: #### C BC #### [facility] [address] [place] [address] Akin Aysha Neutrophils (Bld) [#/Vol] 5.2 103/ul Normal 1.4-6.5 [facility] Comment on above: Performed By: #### C BC #### [facility] [address] [place] [address] Akin Aysha Neutrophils/100 WBC (Bld) 50.8 % Normal 43.0-75.0 [facility] Comment on above: Performed By: #### C BC #### [facility] [address] [place] [address] Akin Aysha Platelet mean volume (Bld) [Entitic vol] 8.6 fL Critically low 9.5-13.5 [facility] Comment on above: Performed By: #### C BC #### [facility] [address] [place] [address] Akin Aysha Platelets (Bld) [#/Vol] 347 103/ul Normal 150-450 [facility] Comment on above: Performed By: #### C BC #### [facility] [address] [place], [place] [address] A[place] RBC (Bld) [#/Vol] 4.66 106/ul Normal 4.20-5.40 [facility] Comment on above: Performed By: #### C BC #### [facility] [address] [place], [place] [address] A[place] WBC (Bld) [#/Vol] 10.2 103/ul Normal 4.0-11.0 [facility] Comment on above: Performed By: #### C BC #### [facility] [address] [place], [place] [address] STROKE HEAD WOon 03-23-19 [...] time of dictation. Electronically authenticated by: SUZI HERNANDEZ Date: 2020-03-22 23:46 Normal [facility] CTA HEAD WO W CONon 03-23-19 21 CTA HEAD WO W CON EXAM: CTA HEAD WO W CON 03/22/2020 11:04 PM EST OH001 CLINICAL STATEMENT: Dysarthria COMPARISON: No prior studies are available at the time of dictation. TECHNIQUE: Routine saxman of Castillo/brain CT angiogram protocol was performed following 75 cc Omnipaque 350 of intravenous contrast. AEC is utilized. 2-D and 3D reconstructions were reviewed. FINDINGS: There is no evidence for intracranial aneurysm and/or high-grade stenosis of the saxman of Castillo. The vertebrobasilar artery is patent [...] SUZI SAID Date: 2020-03-23 00:52 Normal [facility] CTA NECK WO W CONon 03-23-19 [...] SUZI SAID Date: 2020-03-23 00:54 Normal [facility] CULTURE URINEon 03-23-2020 CULTURE URINE Culture Observations : NO GROWTH Normal [facility] Comment on above: Performed By: #### I NFLUAB #### [facility] [address] [place] [address] [place] DRUG SCREEN RAPID (URINE)on 03-23-2020 AMP Negative Normal NEGATIVE [facility] Comment on above: Performed By: #### U MICRO, DRUGRPD, ERUR #### [facility] [address] [place] [address] [place]ysha BAR Negative Normal NEGATIVE [facility] Comment on above: Performed By: #### U MICRO, DRUGRPD, ERUR #### [facility] [address] [place] [address] [place] BUP Negative Normal NEGATIVE [facility] Comment on above: Performed By: #### U MICRO, DRUGRPD, ERUR #### [facility] [address] [place] [address] A[place] BZO Negative Normal NEGATIVE [facility] Comment on above: Performed By: #### U MICRO, DRUGRPD, ERUR #### [facility] [address] [place] [address] [place] JESUS Negative Normal NEGATIVE [facility] Comment on above: Performed By: #### U MICRO, DRUGRPD, ERUR #### [facility] [address] [place] [address] Akin Aysha CUT-OFFS SEE BELOW Normal [facility] Comment on above: Result Comment: AMP [...] By: #### U MICRO, DRUGRPD, ERUR #### [facility] [address] [place] [address] Akin Aysha DRUG CUT HEADER DRUG CLASS TEST SYST EM CUT-OFF CONCENTRATIONS ARE FOLLOWS: Normal [facility] Comment on above: Performed By: #### U MICRO, DRUGRPD, ERUR #### [facility] [address] [place] [address] [place]ha mAMP Negative Normal NEGATIVE [facility] Comment on above: Performed By: #### U MICRO, DRUGRPD, ERUR #### [facility] [address] [place] [address] Akin Aysha MTD Negative Normal NEGATIVE [facility] Comment on above: Performed By: #### U MICRO, DRUGRPD, ERUR #### [facility] [address] [place] [address] Akin A[place] OPI Negative Normal NEGATIVE [facility] Comment on above: Performed By: #### U MICRO, DRUGRPD, ERUR #### [facility] [address] [place] [address] A[place] OXY Negative Normal NEGATIVE [facility] Comment on above: Performed By: #### U MICRO, DRUGRPD, ERUR #### [facility] [address] [place] [address] Akin [place] PCP Negative Normal NEGATIVE [facility] Comment on above: Performed By: #### U MICRO, DRUGRPD, ERUR #### [facility] [address] [place] [address] Akin [place] PPX Negative Normal NEGATIVE [facility] Comment on above: Performed By: #### U MICRO, DRUGRPD, ERUR #### [facility] [address] [place] [address] Akin Aysha TCA Negative Normal NEGATIVE [facility] Comment on above: Performed By: #### U MICRO, DRUGRPD, ERUR #### [facility] [address] [place] [address] Akin [place] THC Positive Abnormal NEGATIVE [facility] Comment on above: Performed By: #### U MICRO, DRUGRPD, ERUR #### [facility] [address] [place] [address] Akin Aysha ER URINE PROFILEon 1 Bilirubin [Mass/Vol] Negative Normal NEGATIVE [facility] Comment on above: Performed By: #### U MICRO, DRUGRPD, ERUR #### [facility] [address] [place] [address] Akin Aysha BLOOD TRACE-INTACT Abnormal NEGATIVE [facility] Comment on above: Performed By: #### U MICRO, DRUGRPD, ERUR #### [facility] [address] [place] [address] A[place] Clarity (U) CLEAR Normal CLEAR [facility] Comment on above: Performed By: #### U MICRO, DRUGRPD, ERUR #### [facility] [address] [place] [address] A[place] Color (U) YELLOW Normal YELLOW [facility] Comment on above: Performed By: #### U MICRO, DRUGRPD, ERUR #### [facility] [address] [place] [address] A[place] ERUAHD A micrscopic examina tion will be performed if indicated. Normal [facility] Comment on above: Performed By: #### U MICRO, DRUGRPD, ERUR #### [facility] [address] [place] [address] Akin [place] Glucose [Mass/Vol] Negative Normal NEGATIVE [facility] Comment on above: Performed By: #### U MICRO, DRUGRPD, ERUR #### [facility] [address] [place] [address] [place] Ketones Ql (U) Negative Normal NEGATIVE [facility] Comment on above: Performed By: #### U MICRO, DRUGRPD, ERUR #### [facility] [address] [place] [address] Akin [place] Nitrite Ql (U) Negative Normal NEGATIVE [facility] Comment on above: Performed By: #### U MICRO, DRUGRPD, ERUR #### [facility] [address] [place] [address] Akin Aysha pH (Bld) 5.5 Normal 5-9 [facility] Comment on above: Performed By: #### U MICRO, DRUGRPD, ERUR #### [facility] [address] [place] [address] [place] Protein (U) [Mass/Vol] Negative Normal NEGATIVE/ TRACE [facility] Comment on above: Performed By: #### U MICRO, DRUGRPD, ERUR #### [facility] [address] [place] [address] A[place] SPEC GRAVITY 1.025 Normal 1.005-<=1.025 [facility] Comment on above: Performed By: #### U MICRO, DRUGRPD, ERUR #### [facility] [address] [place] [address] [place] UR MICRO IND INDICATED Normal [facility] Comment on above: Performed By: #### U MICRO, DRUGRPD, ERUR #### [facility] [address] [place] [address] [place] Urobilinogen Qn (U) 0.2 EU/dl Normal 0.2 - 1.0 [facility] Comment on above: Performed By: #### U MICRO, DRUGRPD, ERUR #### [facility] [address] [place] [address] A[place] WBC (Bld) [#/Vol] Negative Normal NEGATIVE [facility] Comment on above: Performed By: #### U MICRO, DRUGRPD, ERUR #### [facility] [address] [place] [address] [place] POINT OF CARE GLUCOSEon 03-11 Glucose [Mass/Vol] 111 mg/dL Critically high 74-106 [facility] Comment on above: Performed By: #### P OCGLUC #### [facility] [address] [place] [address] [place] URon 03-23-2020 , QUAL Negative Normal NEGATIVE [facility] Comment on above: Performed By: #### P REGU #### [facility] [address] [place] [address] [place] PROF 14(COMP METB)on 021 Albumin [Mass/Vol] 3.9 g/dL Normal 3.5-5.0 [facility] Comment on above: Performed By: #### C MP, HSTROPN #### [facility] [address] [place], [place] [address] A[place] Albumin/Globulin [Mass ratio] 1.0 {ratio} Normal [facility] Comment on above: Performed By: #### C CHRISTIAN, HSTROPN #### [facility] [address] [place], [place] [address] Akin Aysha ALP [Catalytic activity/Vol] 43 U/L Normal 38-126 [facility] Comment on above: Performed By: #### C CHRISTIAN, HSTROPN #### [facility] [address] [place] [address] Akin Aysha ALT [Catalytic activity/Vol] 29 U/L Normal 9-52 [facility] Comment on above: Performed By: #### C CHRISTIAN, HSTROPN #### [facility] [address] [place] [id number] Akin Aysha Anion gap [Moles/Vol] 13.1 mmol/L Normal [facility] Comment on above: Performed By: #### C CHRISTIAN HSTROPN #### [facility] [address] [place] [address] Akin Aysha AST [Catalytic activity/Vol] 20 U/L Normal 14-36 [facility] Comment on above: Performed By: #### C CHRISTIAN HSTROPN #### [facility] [address] [place] [id number] Akni Aysha Bilirubin Ql (U) 0.2 mg/dL Normal 0.2-1.[address] [facility] Comment on above: Performed By: #### C CHRISTIAN, HSTROPN #### [facility] [address] [place] [id number] Akin Aysha Calcium [Mass/Vol] 9.3 mg/dL Normal 8.4-10.2 [facility] Comment on above: Performed By: #### C CHRISTIAN, HSTROPN #### [facility] [address] [place] [id number] Akin Aysha Chloride [Moles/Vol] 105 mmol/L Normal 98-107 [facility] Comment on above: Performed By: #### C CHRISTIAN HSTROPN #### [facility] [address] [place] [id number] A[place] Aysha CO2 [Moles/Vol] 24.4 mmol/L Normal 22.0-30.[address] [facility] Comment on above: Performed By: #### C MP, HSTROPN #### [facility] [address] [place] [address] A[place] Creatinine [Mass/Vol] 0.72 mg/dL Normal 0.52-1.04 [facility] Comment on above: Performed By: #### C MP, HSTROPN #### [facility] [address] [place] [address] [place] EGFR-AF SYRIAN >60 Normal >=[address] [facility] Comment on above: Performed By: #### C CHRISTIAN, HSTROPN #### [facility] [address] [place] [address] [place] EGFR-NON AF SYRIAN >60 Normal >=60 [facility] Comment on above: Performed By: #### C CHRISTIAN, HSTROPN #### [facility] [address] [place] [address] A[place] Globulin (S) [Mass/Vol] 3.8 g/dL Normal [facility] Comment on above: Performed By: #### C CHRISTIAN, HSTROPN #### [facility] [address] [place] [address] A[place] Glucose [Mass/Vol] 91 mg/dL Normal 74-106 [facility] Comment on above: Performed By: #### C MP, HSTROPN #### [facility] [address] [place] [address] A[place] Potassium [Moles/Vol] 3.5 mmol/L Normal 3.4-5.0 [facility] Comment on above: Performed By: #### C CHRISTIAN, HSTROPN #### [facility] [address] [place] [address] A[place] Protein [Mass/Vol] 7.7 g/dL Normal 6.1-8.2 [facility] Comment on above: Performed By: #### C MP, HSTROPN #### [facility] [address] [place] [address] Akin [place] Sodium [Moles/Vol] 139 mmol/L Normal 137-145 [facility] Comment on above: Performed By: #### C MP, HSTROPN #### [facility] [address] [place] [address] Akin [place]ys[place] Urea nitrogen [Mass/Vol] 15.0 mg/dL Normal 7.0-17.0 [facility] Comment on above: Performed By: #### C MP, HSTROPN #### [facility] [address] [place], [place] [address] A[place] Urea nitrogen/Creatinin e [Mass ratio] 20.8 mg/mg Normal [facility] Comment on above: Performed By: #### C MP, HSTROPN #### [facility] [address] [place] [address] A[place] TROPONIN, HIGH SENSITIVITYon 03-23-2020 HSTROP 4.0 pg/mL Normal 4.0-35.5 [facility] Comment on above: Result Comment: CUT- OFF POINTS HAVE BEEN ESTABLISHED BASED ON THE FOURTH UNIVERSAL DEFINITIONS OF MYOCARDIAL INFARCTION. THE UPPER REFERENCE LIMIT (URL) OF TROPONIN, DEFINED THE 99TH PERCENTILE OF cTnI DISTRIBUTION IN A REFERENCE POPULATION, HAS BEEN CONFIRMED THE DECISION THRESHOLD FOR HI DIAGNOSIS. Performed By: #### C MP, HSTROPN #### [facility] [address] [place] [address] Akin [place]ys[place] URINE MICROSCOPIC ONLYon Bacteria LM.HPF (Urine sed) [#/Area] MODERATE Abnormal NONE SEEN [facility] Comment on above: Performed By: #### I NFLUAB #### [facility] [address] [place] [address] [place] CAST NONE SEEN Normal NONE SEEN [facility] Comment on above: Performed By: #### I NFLUAB #### [facility] [address] [place] [address] A[place] Crystals LM Nom (Urine sed) NONE SEEN Normal NONE SEEN [facility] Comment on above: Performed By: #### I NFLUAB #### [facility] [address] [place], [place] [address] A[place] CULTURE INDICATED Normal [facility] Comment on above: Performed By: #### I NFLUAB #### [facility] [address] [place] [id number] Akin Aysha Epithelial cells LM.HPF (Urine sed) [#/Area] FEW Abnormal NONE SEEN /RARE [facility] Comment on above: Performed By: #### I NFLUAB #### [facility] [address] [place] [address] Akin Aysha MUCOUS NONE SEEN Normal NONE SEEN [facility] Comment on above: Performed By: #### I NFLUAB #### [facility] [address] [place], [place] [id number] Akin Aysha RBC (U) [#/Vol] 0-2 Normal 0-2 [facility] Comment on above: Performed By: #### I NFLUAB #### [facility] [address] [place], [place] [address] Akin Aysha WBC (Bld) [#/Vol] 2-5 Abnormal NONE SEEN The [facility] Comment on above: Performed By: #### I NFLUAB #### [facility] [address] [place], [place] [id number] Akin Aysha CBC AUTO DIFFon 05-12-2019 Basophils (Bld) [#/Vol] 0.1 103/ul Normal 0.0-0.1 [facility] Comment on above: Performed By: #### C BC #### [facility] [address] [place], [place] [address] Akin Aysha Basophils/100 WBC (Bld) 0.7 % Normal 0.2-2.0 [facility] Comment on above: Performed By: #### C BC #### [facility] [address] [place], [place] [address] Akin Aysha Eosinophils (Bld) [#/Vol] 0.2 103/ul Normal 0.0-0.7 [facility] Comment on above: Performed By: #### C BC #### [facility] [address] [place], [place] [address] Akin Aysha Eosinophils/100 WBC (Bld) 1.6 % Normal 0.9-7.0 [facility] Comment on above: Performed By: #### C BC #### [facility] [address] [place], [place] [id number] Akin Aysha Erythrocyte distribution width (RBC) [Ratio] 12.1 % Normal 11.0-15.0 [facility] Comment on above: Performed By: #### C BC #### [facility] [address] [place], [place] [address] Akin Aysha Hematocrit (Bld) [Volume fraction] 42.5 % Normal 36.0-48.0 [facility] Comment on above: Performed By: #### C BC #### [facility] [address] [place], [place] [id number] Akin Aysha Hemoglobin (Bld) [Mass/Vol] 14.5 g/dL Normal 12.0-16.0 [facility] Comment on above: Performed By: #### C BC #### [facility] [address] [place], [place] [address] Akin Aysha IG # 0.03 10e3/ul Normal 0.00-0.03 [facility] Comment on above: Performed By: #### C BC #### [facility] [address] [place], [place] [address] Akin Aysha IG % 0.3 % Normal 0.0-0.5 [facility] Comment on above: Performed By: #### C BC #### [facility] [address] [place], [place] [address] Akin Aysha Lymphocytes (Bld) [#/Vol] 4.2 103/ul Critically high 1.2-3.8 [facility] Comment on above: Performed By: #### C BC #### [facility] [address] [place], [place] [address] Akin Aysha Lymphocytes/100 WBC (Bld) 36.2 % Normal 20.5-60.0 [facility] Comment on above: Performed By: #### C BC #### [facility] [address] [place], [place] [address] Akin Olmstead MANUAL DIFF REQ NO Normal [facility] Comment on above: Performed By: #### C BC #### [facility] [address] [place], [place] [address] Akin Aysha MCH (RBC) [Entitic mass] 31.3 pg Normal 26.7-34.0 [facility] Comment on above: Performed By: #### C BC #### [facility] [address] [place] [id number] Akinenio Olmstead MCHC (RBC) [Mass/Vol] 34.1 g/dL Normal 29.9-35.2 [facility] Comment on above: Performed By: #### C BC #### [facility] [address] [place], [place] [address] Akinenio Segundoen MCV (RBC) [Entitic vol] 91.6 fL Normal 81.0-99.0 [facility] Comment on above: Performed By: #### C BC #### [facility] [address] [place], [place] [address] Akin Aysha Monocytes (Bld) [#/Vol] 0.8 103/ul Normal 0.3-0.8 [facility] Comment on above: Performed By: #### C BC #### [facility] [address] [place], [place] [address] Akin Aysha Monocytes/100 WBC (Bld) 7.2 % Normal 1.7-12.0 [facility] Comment on above: Performed By: #### C BC #### [facility] [address] [place], [place] [address] Akin Aysha Neutrophils (Bld) [#/Vol] 6.2 103/ul Normal 1.4-6.5 [facility] Comment on above: Performed By: #### C BC #### [facility] [address] [place], [place] [address] Akin Aysha Neutrophils/100 WBC (Bld) 54.0 % Normal 43.0-75.0 [facility] Comment on above: Performed By: #### C BC #### [facility] [address] [place], [place] [address] Akinenio Olmstead Platelet mean volume (Bld) [Entitic vol] 8.7 fL Critically low 9.5-13.5 [facility] Comment on above: Performed By: #### C BC #### [facility] [address] [place], [place] [address] Akinenio Olmstead Platelets (Bld) [#/Vol] 333 103/ul Normal 150-450 [facility] Comment on above: Performed By: #### C BC #### [facility] [address] [place], [place] [address] Akin Aysha RBC (Bld) [#/Vol] 4.64 106/ul Normal 4.20-5.40 [facility] Comment on above: Performed By: #### C BC #### [facility] [address] [place], [place] [address] Akinenio Segundoen WBC (Bld) [#/Vol] 11.5 103/ul Critically high 4.0-11.0 [facility] Comment on above: Performed By: #### C BC #### [facility] [address] [place], [place] [address] Akinenio Olmstead ER URINE PROFILEon 0 Bilirubin [Mass/Vol] Negative Normal NEGATIVE [facility] Comment on above: Performed By: #### I NFLUAB #### [facility] [address] [place], [place] [address] Akinenio Olmstead BLOOD Negative Normal NEGATIVE [facility] Comment on above: Performed By: #### I NFLUAB #### [facility] [address] [place] [address] Akinenio Olmstead Clarity (U) CLOUDY Normal [facility] Comment on above: Performed By: #### I NFLUAB #### [facility] [address] [place], [place] [address] Akin Aysha Color (U) LT. YELLOW Normal YELLOW [facility] Comment on above: Performed By: #### I NFLUAB #### [facility] [address] [place] [address] Akin Olmstead ERUAHD A micrscopic examina tion will be performed if indicated. Normal [facility] Comment on above: Performed By: #### I NFLUAB #### [facility] [address] [place] [address] Akin Aysha Glucose [Mass/Vol] Negative Normal NEGATIVE [facility] Comment on above: Performed By: #### I NFLUAB #### [facility] [address] [place] [address] Akin Aysha Ketones Ql (U) Negative Normal NEGATIVE [facility] Comment on above: Performed By: #### I NFLUAB #### [facility] [address] [place] [address] Akin Aysha Nitrite Ql (U) Negative Normal NEGATIVE [facility] Comment on above: Performed By: #### I NFLUAB #### [facility] [address] [place] [address] Akin Aysha pH (Bld) 8.5 Normal 5-9 [facility] Comment on above: Performed By: #### I NFLUAB #### [facility] [address] [place] [address] Akin Aysha Protein (U) [Mass/Vol] Negative Normal [facility] Comment on above: Performed By: #### I NFLUAB #### [facility] [address] [place] [address] Akin Aysha SPEC GRAVITY 1.015 Normal 1.005-<=1.025 [facility] Comment on above: Performed By: #### I NFLUAB #### [facility] [address] [place] [address] Akin Aysha UR MICRO IND NOT INDICATED Normal [facility] Comment on above: Performed By: #### I NFLUAB #### [facility] [address] [place] [address] Akin Aysha Urobilinogen Qn (U) 0.2 EU/dl Normal [facility] Comment on above: Performed By: #### I NFLUAB #### [facility] [address] [place] [address] Akin Aysha WBC (Bld) [#/Vol] Negative Normal NEGATIVE [facility] Comment on above: Performed By: #### I NFLUAB #### [facility] [address] [place] [address] Akin Olmstead INFLUENZA A AND B AGon 05-11 INFLUANEGH SEE BELOW Normal [facility] Comment on above: Result Comment: Nega tive for Flu A protein angiten. Infection due to Flu A cannot be ruled out. Flu A angiten in the sample may be below the detection limit of the test. Performed By: #### I NFLUAB #### [facility] [address] [place] [address] Akin Olmstead INFLUBNEGH SEE BELOW Normal [facility] Comment on above: Result Comment: Nega tive for Flu B protein antigen. Infection due to Flu B cannot be ruled out. Flu B antigen in the sample may be below the detection limit of the test. Performed By: #### I NFLUAB #### [facility] [address] [place] [address] Akin Olmstead INFLUENZA A AG Negative Normal NEGATIVE SEE COMMENT [facility] Comment on above: Performed By: #### I NFLUAB #### [facility] [address] [place] [address] Akin Olmstead INFLUENZA B AG Negative Normal NEGATIVE SEE COMMENT [facility] Comment on above: Performed By: #### I NFLUAB #### [facility] [address] [place] [address] Akin Olmstead INTERNAL CONTROLS Within Normal Limits Normal Wi thin Normal Limits [facility] Comment on above: Performed By: #### I NFLUAB #### [facility] [address] [place] [address] Akin Olmstead LACTATE/LACTIC ACIDon 2019 Lactate [Moles/Vol] 0.8 mmol/L Normal 0.7-2.0 [facility] Comment on above: Performed By: #### I NFLUAB #### [facility] [address] [place] [address] Akin Olmstead PROF CHEM 8 (BAS METB)on Anion gap [Moles/Vol] 9.3 mmol/L Normal [facility] Comment on above: Performed By: #### B MP #### [facility] [address] [id number] Akin Aysha Calcium [Mass/Vol] 9.4 mg/dL Normal 8.4-10.2 [facility] Comment on above: Performed By: #### B MP #### [facility] [address] [place] [address] Akin Aysha Chloride [Moles/Vol] 105 mmol/L Normal 98-107 [facility] Comment on above: Performed By: #### B MP #### [facility] [address] [place] [address] Akin Aysha CO2 [Moles/Vol] 28.3 mmol/L Normal 22.0-30.[address] [facility] Comment on above: Performed By: #### B MP #### [facility] [address] [place] [address] Akin Aysha Creatinine [Mass/Vol] 0.81 mg/dL Normal 0.52-1.04 [facility] Comment on above: Performed By: #### B MP #### [facility] [address] [place] [address] Akin Aysha EGFR-AF SYRIAN >60 Normal >=[address] [facility] Comment on above: Performed By: #### B MP #### [facility] [address] [place] [address] Akin Aysha EGFR-NON AF SYRIAN >60 Normal >=60 [facility] Comment on above: Performed By: #### B MP #### [facility] [address] [place] [address] Akin Aysha Glucose [Mass/Vol] 111 mg/dL Critically high 74-106 [facility] Comment on above: Performed By: #### B MP #### [facility] [address] [place] [address] Akin Aysha Potassium [Moles/Vol] 3.6 mmol/L Normal 3.4-5.0 [facility] Comment on above: Performed By: #### B MP #### [facility] [address] [place], [place] [address] Akin Aysha Sodium [Moles/Vol] 139 mmol/L Normal 137-145 [facility] Comment on above: Performed By: #### B MP #### [facility] [address] [place], [place] [address] Akin Aysha Urea nitrogen [Mass/Vol] 13.0 mg/dL Normal 7.0-17.0 [facility] Comment on above: Performed By: #### B MP #### [facility] [address] [place], [place] [address] Akin Aysha Urea nitrogen/Creatinin e [Mass ratio] 16.0 mg/mg Normal [facility] Comment on above: Performed By: #### B MP #### [facility] [address] [place], [place] [address] Akin Segundoen XR CHEST 2 Von 05-12-2019 XR [...] by: Mayra DEGROOT Date: 2019-05-11 23:24 Normal [facility] DNA Extraction and holdon DNA Extraction and hold SEE BELOW Normal [facility] Comment on above: Result Comment: SPEC IMEN: BLOOD DNA EXTRACTION AND HOLD SPECIMEN TYPE: EDTA Blood Date Received: 12/28/18 EXTRACTION: DNA extracted from 3.0ml EDTA blood Method: GentForsake Puregene Reagents from [employer] ANALYSIS: DNA concentration: 571.4ng/ul Total volume DNA: 225ul (in TE buffer) DNA Purity 260/280 Ratio: 1.9 Total DNA yield: 128.6ug STORAGE AND SPECIAL INSTRUCTIONS: The extracted DNA is stored in the [facility] at -700C in the DS & EX 2019 box. Holding for future testing. Any questions regarding this sample, please contact [facility] at [phone]. VANESSA CUNHA 01/11/2019 Performed By: #### D ELIZABETH #### [facility] [address] [place] [address] SURGICAL PATHOLOGYon 019 SURGICAL PATHOLOGY Specimen #: [id number] Submitting Physician: ASHWINI SIMONS M.D. __ FINAL DIAGNOSIS Soft tissue, left posterior shoulder, excision - Lipoma with fat necrosis, see comment. SDB/RS/rw 08/08/2018 COMMENT Many thanks for sending in consultation this case of a [id number] with a lesion on the left posterior [...] Please call the Dermatopathology Consultation Service at [phone] with questions or if additional follow-up information becomes available regarding this patient. This case was reviewed in conjunction with the Dermatopathology Fellow, Dr. Clements. Fam Wong M.D. (Electronic Signature) SPECIMEN SUBMITTED A: 12 SLIDES ([id number]: A-J) CLINICAL DATA None provided. Date of Report: 08/08/2018 Date of Procedure: 08/04/2018 Date of Receipt: 08/04/2018 Submitted by: ASHWINI SIMONS M.D. Location: Diagnostic interpretation performed at [facility], [address] [place] [address]. CLIA Number: [id number] Normal [facility] Comment on above: Performed By: #### S #### See report for performing lab information. Vital Signs Date Time Vital Sign Value Performing Clinician Maurice villegas 08-18-2023 08:48-0400 Body height 152.4 cm Delon Pedersen MD Work Phone: [facility] 08-18-2023 08:48-0400 Body mass index (BMI) [Ratio] 29.29 kg/m2 Delon Pedersen MD Work Phone: [facility] 08-18-2023 08:48-0400 Body weight 68.04 kg Delon Pedersen MD Work Phone: [facility] 08-18-2023 08:48-0400 Diastolic blood pressure 80 mm[Hg] Delon Pedersen MD Work Phone: [facility] 08-18-2023 08:48-0400 Heart rate 78 /min Delon Pedersen MD Work Phone: [facility] [employer] 08-18-2023 08:48-0400 SaO2% (BldA) [Mass fraction] 97 % Delon Pedersen MD Work Phone: [facility] 08-18-2023 08:48-0400 Systolic blood pressure 112 mm[Hg] Delon Pedersen MD Work Phone: [facility] 04-15-2023 12:35-0500 Body height 152.4 cm Rhea Moreno APRN-AGRICULTURAL SCIENCE PROFESSOR Work Phone: [facility] 04-15-2023 12:35-0500 Body mass index (BMI) [Ratio] 29.02 kg/m2 Rhea Moreno CHEMISTRY ACCOUNT MANAGER-AGRICULTURAL SCIENCE PROFESSOR Work Phone: [facility] 04-15-2023 12:35-0500 Body weight 67.41 kg Rhea Moreno APRN-AGRICULTURAL SCIENCE PROFESSOR Work Phone: [facility] 04-15-2023 12:35-0500 Diastolic blood pressure 70 mm[Hg] Rhea Moreno CHEMISTRY ACCOUNT MANAGER-AGRICULTURAL SCIENCE PROFESSOR Work Phone: [employer] 04-15-2023 12:35-0500 Heart rate 80 /min Rhea Moreno CHEMISTRY ACCOUNT MANAGER-AGRICULTURAL SCIENCE PROFESSOR Work Phone: [employer] 04-15-2023 12:35-0500 SaO2% (BldA) [Mass fraction] 97 % Rhea Moreno CHEMISTRY ACCOUNT MANAGER-AGRICULTURAL SCIENCE PROFESSOR Work Phone: [employer] 04-15-2023 12:35-0500 Systolic blood pressure 116 mm[Hg] Rhea Moreno CHEMISTRY ACCOUNT MANAGER-AGRICULTURAL SCIENCE PROFESSOR Work Phone: [employer] Encounters Encounter Date Encounter Type Care Provider Facility Start: 03-06-2024 End: 03-07-2024 [facility] Comment on above: Tachy events on loop recorder Start: 01-20-2024 End: 01-20-2024 Bamboo flowsheet Roxy RUIZ Work Phone: [facility] Start: 01-20-2024 End: 01-20-2024 Bamboo flowsheet Roxy RUIZ Work Phone: [facility] Start: 01-20-2024 End: 01-20-2024 Office outpatient visit 15 minutes Roxy RUIZ Work Phone: [facility] Comment on above: Left lower quadrant pain; Follow-up exam; History of ovarian cyst Start: 01-20-2024 End: 01-20-2024 ambulatory ROXY GRAYSON Not Available Start: 11-29-2023 End: 11-29-2023 Emergency department patient visit [facility] Start: 09-03-2023 End: 09-03-2023 Telephone encounter Nallely Serrano RN [facility] Comment on above: s/p ILR removal Start: 08-18-2023 End: 08-18-2023 Telephone encounter Ally Anne LPN [facility] Comment on above: EP Surgery (ILR repl acement) EP Surgery ( PT Educ ation) Start: 08-18-2023 End: 08-18-2023 Office outpatient visit 15 minutes Delon Pedersen MD Work Phone: [facility] Comment on above: Atrial flutter, unsp ecified type (CMS-HCC) (Primary Dx) Start: 08-18-2023 End: 08-18-2023 ambulatory DELON PEDERSEN [facility] Start: 08-17-2023 Telephone encounter Keily Wu CMA [facility] Start: 06-16-2023 End: 06-16-2023 ambulatory JUAN VIOLET Not Available Start: 06-11-2023 End: 07-02-2023 Telephone encounter José Miguel Clemons RN [facility] Comment on above: Loop (Loop at EOS) Start: 05-31-2023 End: 06-01-2023 Refill Mi Blake CHEMISTRY ACCOUNT MANAGER-AGRICULTURAL SCIENCE PROFESSOR Work Phone: [facility] Comment on above: Med Refill Start: 05-12-2023 End: 05-12-2023 ambulatory ROXY GRAYSON Not Available Start: 04-30-2023 End: 04-30-2023 ambulatory Juan Violet Facility:[facility] Start: 04-30-2023 End: 04-30-2023 ambulatory Juan Violet Work Phone: [facility] Work Phone: Start: 04-30-2023 End: 04-30-2023 Departed Referred Juan Violet Work Phone: [facility] Start: 04-15-2023 End: 04-15-2023 ambulatory [facility] Start: 04-15-2023 Encounter for other preprocedural examination [facility] Start: 04-15-2023 Telephone encounter Rhea Perez RN [facility] Comment on above: Surgical Or Dental C learance Start: 04-15-2023 End: 04-15-2023 Office outpatient visit 15 minutes [facility] CHEMISTRY ACCOUNT MANAGER-AGRICULTURAL SCIENCE PROFESSOR Work Phone: [facility] Comment on above: Preop examination (P rimary Dx); Paroxysmal atrial fibrillation ([facility]-HCC); Near syncope; Atrial flutter, unspecified type ([facility]-HCC) Start: 04-15-2023 End: 04-15-2023 Preprocedural examination done Rhea Moreno CHEMISTRY ACCOUNT MANAGER-AGRICULTURAL SCIENCE PROFESSOR Work Phone: [employer] Start: 04-07-2023 End: 04-07-2023 Departed Referred Juan Violet Work Phone: [facility] Start: 04-07-2023 End: 04-07-2023 ambulatory Juan Wolfezio Facility:[facility] Start: 03-03-2023 End: 03-03-2023 ambulatory JUAN SLADE Not Available Start: 02-17-2023 End: 02-17-2023 ambulatory Lashell Moeller COMPUTED TOMOGRAPHY TECHNICIANKylieC Facility:[facility] Start: 02-15-2023 End: 02-15-2023 ambulatory Ezekiel RUIZ Facility:[facility] Start: 02-02-2023 End: 02-02-2023 ambulatory CHRISTIE Reid [facility] Start: 07-15-2022 End: 07-15-2022 ambulatory Trevon Pruitt Facility:[facility] Start: 07-15-2022 End: 07-15-2022 ambulatory MD Trevon Pruitt Work Phone: [facility] Work Phone: Start: 07-15-2022 End: 07-15-2022 Departed Referred MD Trevon Pruitt Work Phone: [facility] Start: 07-09-2022 Patient encounter status Rhea Moreno CHEMISTRY ACCOUNT MANAGER-AGRICULTURAL SCIENCE PROFESSOR Work Phone: [employer] Work Phone: Start: 03-23-2020 End: 03-23-2020 Patient encounter procedure ADILIA PEREZ Facility:[facility] Start: 05-11-2019 End: 05-12-2019 Patient encounter procedure DELON DE LA CRUZ Facility:[facility] Procedures Date Procedure Procedure Detail Performing Clinician Start: 08-18-2023 Follow-up visit Follow-up DELON PEDERSEN Start: 06-16-2023 Microscopic observat ion [Identifier] in Cervix by Cyto stain Delon Pedersen MD Work Phone: Start: 04-15-2023 Ecg routine ecg w/le ast 12 lds w/i&r Rhea Moreno CHEMISTRY ACCOUNT MANAGER-AGRICULTURAL SCIENCE PROFESSOR Work Phone: Start: 05-12-2019 End: 05-12-2019 Microscopic examination of blood, culture DELON JONO Comment on above: Performed By: #### I NFLUAB #### [facility] [address] [place] [address] Akin Segundoen Plan of Treatment Date Care Activity Detail Author Start: 06-15-2026 Screening for malign ant neoplasm of cervix Pap Smear [facility] Start: 11-28-2024 Tobacco Screening Tobacco Screening [facility] Start: 09-01-2024 Adult BMI Screening Adult BMI Screen ing [facility] Start: 09-01-2024 Tobacco Screening Tobacco Screening [facility] Start: 06-21-2024 End: 06-21-2024 Patient encounter procedure 06/21/2024 11:00 AM EDT Office Visit [facility] [address] [place] [phone] Juan Slade, [address] [place] [address] [facility] Start: 04-19-2024 End: 04-19-2024 Professional / ancillary services management 04/19/2024 9:30 AM EDT Ancillary Procedure [facility] [address] [facility] [facility] [place] [id number] [facility] Start: 04-14-2024 Adult BMI Screening Adult BMI Screen ing [facility] Start: 04-14-2024 Tobacco Screening Tobacco Screening [facility] Start: 03-29-2024 End: 03-29-2024 Patient encounter procedure 03/29/2024 10:30 AM EST [facility] [address] [place] [phone] Haresh Huizar, CHEMISTRY ACCOUNT MANAGER-AGRICULTURAL SCIENCE PROFESSOR [address] [place] [address] [facility] Start: 01-20-2024 End: 01-19-2025 US for US PELVIS-TRANSVAG IF INDICATED Imaging Routine History of ovarian cyst Expected: 01/20/2024 (Approximate), Expires: 01/19/2025 [facility] Work Phone: Comment on above: Expected: 01/20/2024 (Approximate), Expires: 01/19/2025 Start: 01-20-2024 End: 01-20-2024 Patient encounter procedure 01/20/2024 9:10 AM EST Office Visit [facility] [address] [place] [address] Roxy Grayson PA [address] [place], [facility] Arrived [facility] Comment on above: Arrived Start: 10-10-2023 Influenza vaccination Influenza Vacc ine [facility] Start: 08-18-2023 End: 08-18-2023 Patient encounter procedure 08/18/2023 8:45 AM EDT Office Visit [facility] [address] [place] [address] Delon Pedersen MD [address] [place] [id number] [facility] Start: 10-09-2022 Influenza vaccination Influenza Vacc ine [facility] Start: 10-05-2022 DTaP,Tdap and Td Vaccines (7 - Td or Tdap) DTaP,Tdap and Td Vaccines (7 - Td or Tdap) [facility] Start: 2008 Screening for malign ant neoplasm of cervix Pap Smear [facility] Start: 2005 Adult BMI Follow Up Plan Adult BMI Follow Up Plan [facility] Start: 1999 [facility] Start: 1987 Tobacco Counseling Tobacco Counselin g [facility] Payers Date Payer Category Payer Self-pay 2021 Worker's Compensation WORKER'S C OMPENSATION WORKER'S WFGGURFCATZY-LUXVDH-MVDE ONLY [id number] 2021-Present [id number] [id number] 2017 Medicaid (Managed Care) [employer] [id number] 2002 Medicaid [place] [employer] [employer] [id number] 2002-Present [phone] [place] [id number] 2002 Medicaid HMO [employer] [employer] [id number] 1987 Unknown [id number] .593 1987 Unknown [id number] 2.16.840.1.119118.3.579.2 .593 1987 Unknown [id number] 2.16.840.1.364644.3.579.2 .1286 1987 Unknown [id number] 2.16.840.1.773801.3.579.2 .1286 1987 Unknown [id number] 2.16.840.1.189681.3.579.2 .1286 1987 Unknown [id number] 2.16.840.1.846199.3.579.2 .1286 1987 Unknown [id number] 2.16.840.1.688574.3.579.2 .1259 1987 Unknown [id number] 2.16.840.1.129531.3.579.2 .1259 1987 Unknown [id number] 2.16.840.1.017165.3.579.2 .1259 1987 Unknown [id number] 2.16.840.1.831976.3.579.2 .1259 1987 Unknown [id number] 2.16.840.1.209822.3.579.2 .1259 1987 Unknown [id number] 2.16.840.1.957354.3.579.2 .718 1987 Unknown [id number] [id number] .718 1959 Unknown [id number] Social History Date Type Detail Facility Tobacco smoking stat [facility] Unknown if ever smoked [facility] Work Phone: Start: 1985 Sex Assigned At Female [facility] Start: 04-03-2010 End: 08-18-2023 Tobacco smoking status NHIS Smokes tobacco daily [facility] Start: 04-03-2010 End: 04-03-2020 History of tobacco use Cigarette Smoker [facility] Start: 2020 End: 10-29-2022 Cigarettes smoked current (pack per day) - Reported 0.5 [facility] Start: 10-29-2022 End: 08-18-2023 Tobacco use and exposure Smokeless tobacco non-user [facility] Start: 04-15-2023 End: 11-29-2023 Alcohol intake Current non-drinker of alcohol (finding) [facility] Start: 2020 End: 04-15-2023 Tobacco use panel [facility] tem Childcare Unknown [facility] Start: 1985 Sex Assigned At Not on file P [facility] Start: 06-16-2023 End: 01-20-2024 Alcoholic beverage intake Lifetime non-drinker (finding) [facility] Start: 02-10-2023 Alcohol Comment caffeine: 1-2 cups per day [facility] Start: 09-13-2014 Sex Female (finding) [facility] Medical Equipment Procedure Code Equipment Code Equipment Origin al Text Equipment Identifier Dates Lux-Dx-06/05/2020 [id number] Start: 06-05-2020 Lux -Dx Ii + [facility] - [id number] Start: 09-02-2023 Clinical Notes 02-15-2023 to 03-06-2024 Telephone Encounter - Shelli Mccann - 03/06/2024 2:25 PM ESTTelephone Encounter - Delon Pedersen MD - 03/06/2024 2:25 PM ESTTelephone Encounter - Shelli Mccann - 03/06/2024 2:25 PM EST Note Date & Type Note Facility 03-06-2024 Miscellaneous Notes AMML for patient to call office to review tachy events from a [facility] [place] loop recorder. Tachy events from 03/05/24 show probable AF/Aflutter with RVR, rates 169-180 bpm x 11-56 seconds @ [id number]. Per [facility], patient is on Eliquis. EGMs scanned into chart. Will continue to monitor. Patient returns call- Per patient she was very aware of increased heart rate. Patient stated that she was watching TV at the time of the event and felt heart racing and a surge of anxiety . Patient stated that she rested and symptoms resolved. Patient confirms no missed doses of prescribed medications. Confirms on Eliquis. Patient requested an appointment with JESSI, patient was connected with a equipment scheduler. EGM scanned into chart for your review. Please advise if you would like any changes. Thank you No changes, f/u as scheduled, thx! Patient called with JSHIRIN's recommendation. Patient verbalized understanding. Appointment confirmed for 03/29/24. Will continue to monitor. [facility] Tele[facility] encounter Note AMML for patient to call office to review tachy events from a [facility] [place] loop recorder. Tachy events from 03/05/24 show probable AF/Aflutter with RVR, rates 169-180 bpm x 11-56 seconds @ 7895-1983. Per [facility], patient is on Eliquis. EGMs scanned into chart. Will continue to monitor. Patient returns call- Per patient she was very aware of increased heart rate. Patient stated that she was watching TV at the time of the event and felt heart racing and a surge of anxiety . Patient stated that she rested and symptoms resolved. Patient confirms no missed doses of prescribed medications. Confirms on Eliquis. Patient requested an appointment with JESSI, patient was connected with a equipment scheduler. EGM scanned into chart for your review. Please advise if you would like any changes. Thank you [facility] 03-06-2024 Telephone encounter Note No changes, f/u as scheduled, thx! [facility] 03-06-2024 Telephone encounter Note Patient called with JZL's recommendation. Patient verbalized understanding. Appointment confirmed for 03/29/24. Will continue to monitor. [facility] 01-20-2024 History of Presen t illness Narrative Reason for Appointment: Patient ID: Ariel Salas is a 38 y.o. female who presents for ER Follow-up (/) Patient presents today for Acute Visit. MEDICATIONS Current Outpatient Medications Medication Instructions acetaminophen (Tylenol) 160 MG/5ML liquid apixaban (Eliquis) 5 MG tablet TAKE ONE TABLET BY MOUTH EVERY MORNING AND BEFORE BEDTIME cetirizine (ZyrTEC) 10 MG tablet metoprolol succinate XL (TOPROL-XL) 25 mg, Oral, Daily RT Mirena (52 MG) 52 mg ALLERGIES Allergies Allergen Reactions Sulfamethoxazole Rash Trimethoprim Rash PROBLEMS Active Ambulatory Problems Diagnosis Date Noted No Active Ambulatory Problems Resolved Ambulatory Problems Diagnosis Date Noted No Resolved Ambulatory Problems Past Medical History: Diagnosis Date Anxiety with depression Left serous otitis media, unspecified chronicity Stroke ([facility]) 2020 HISTORY PAST MEDICAL HISTORY SOCIAL HISTORY Past Medical History: Diagnosis Date Anxiety with depression anxiety/depression Left serous otitis media, unspecified chronicity Stroke ([facility]) 2020 Social History Tobacco Use Smoking status: Every Day Current packs/day: 1.00 Types: Cigarettes Smokeless tobacco: Not on file Substance Use Topics Alcohol use: Never Comment: caffeine: 1-2 cups per day Drug use: Not on file FAMILY HISTORY Family History Problem Relation Name Age of Onset Hypertension Maternal Grandmother Diabetes Maternal Grandmother Heart disease Maternal Grandmother Colon cancer Maternal Grandfather Diabetes Paternal Grandmother Hypertension Paternal Grandmother SURGICAL HISTORY Past Surgical History: Procedure Laterality Date DILATION AND CURETTAGE OF UTERUS 2018 OTHER SURGICAL HISTORY uterine ablation 04/2023 REVIEW OF SYSTEMS Review of Systems: Review of Systems Constitutional: Negative. HENT: Negative. Eyes: Negative. Respiratory: Negative. Cardiovascular: Negative. Gastrointestinal: Positive for abdominal pain. Right lower quadrant Genitourinary: Negative. Musculoskeletal: Negative. Skin: Negative. Neurological: Negative. All other systems reviewed and are negative. Hematological: Negative. Endocrine: Negative. Allergic/Immunologic: Negative. OBJECTIVE Objective: Physical Exam Constitutional: Appearance: Normal appearance. She is normal weight. HENT: Head: Normocephalic. Cardiovascular: Rate and Rhythm: Normal rate. Pulses: Normal pulses. Pulmonary: Effort: Pulmonary effort is normal. Breath sounds: Normal breath sounds. Abdominal: Palpations: Abdomen is soft. Tenderness: There is abdominal tenderness. Hernia: A hernia is present. Comments: Small femoral weakness appreciated, no evidence of protruding heria Musculoskeletal: General: Normal range of motion. Neurological: General: No focal deficit present. Mental Status: She is alert and oriented to person, place, and time. Psychiatric: Mood and Affect: Mood normal. Behavior: Behavior normal. Thought Content: Thought content normal. Judgment: Judgment normal. Vitals and nursing note reviewed. Vitals: Estimated body mass index is 28.34 kg/m as calculated from the following: Height as of 12/25/19: 5' 1 . Weight as of 06/16/23: 150 lb. BP: No LMP recorded. (Menstrual status: No Periods). ASSESSMENT & PLAN ICD-10-CM 1. Left lower quadrant pain R10.32 2. Follow-up exam Z09 3. History of ovarian cyst Z87.42 US PELVIS-TRANSVAG IF INDICATED Patient presents with a pain to right lower quadrant that comes and goes. Abdomen palpated and point tenderness located to right lower abdominal wall. From history of pt and exam, she is noted to have a weakness to the femoral region of her right lower quadrant. No obvious hernia today, pt states pain comes and goes, when she lays flat at relaxes pain does improve. Patient has history of robotic salpingectomy, no other abdominal surgeries. Pt has history of ovarian cyst, we will repeat US in 3 weeks. Patient advised we could send referral to general surgery and also if she tries to lose 5-10 lbs it may help alleviate some of the abdominal pain if it is start of hernia Ct and US reports reviewed. Pt wishes to have US repeated in 3 weeks and attempt to lose weight to see if it helps with pain. Documented by JOSEPH Welsh on behalf of: JOSEPH Welsh documented in this encounter [facility] 09-03-2023 Miscellaneous Notes Pt calls office stating after her ILR removal yesterday she had some continued bleeding at the surgical site. In the recovery area she states the nurse changed the physicians bandage and watched it for a while before pt was discharged. Pt had noticed some more bleeding on the bandage when she got home to [place] from [facility] and called back to the hospital. Was inst to remain in elevated position, apply direct pressure, and ice the area. Pt states she awoke this am and thought possibly some more bleeding was noted on the dressing. She was going to remove the dressing as inst this afternoon but now has noticed some blisters under what sounds like as a tegaderm holding the bandage in place. The pt did not want to do anything without speaking with the office first. She denies saturating dressings or severe active bleeding. HOWEVER the pt then ON HER OWN last night did not take her Eliquis and didn't take her Eliquis this am. Has hx of CVA/TIA. Pt confirms bleeding sound more like continued oozing not active heavy bleeding. Told pt would msg JESSI at [facility] to advise care for the wkend. She should resume her apixaban. From wound care perspective, light dressing/bandaid over the area with continued pressure if actively oozing. Monitor throughout the weekend and if still oozing, please call back. Per JZL response, phoned pt back. She confirms no active bleeding. Will change dressing and monitor and try to avoid area irritated by previous bandage. She will resume Eliquis. Will call after hours or office if any further concerns over the wkend documented in this encounter [facility] 09-03-2023 Telephone encounter Note Pt calls office stating after her ILR removal yesterday she had some continued bleeding at the surgical site. In the recovery area she states the nurse changed the physicians bandage and watched it for a while before pt was discharged. Pt had noticed some more bleeding on the bandage when she got home to [place] from [facility] and called back to the hospital. Was inst to remain in elevated position, apply direct pressure, and ice the area. Pt states she awoke this am and thought possibly some more bleeding was noted on the dressing. She was going to remove the dressing as inst this afternoon but now has noticed some blisters under what sounds like as a tegaderm holding the bandage in place. The pt did not want to do anything without speaking with the office first. She denies saturating dressings or severe active bleeding. HOWEVER the pt then ON HER OWN last night did not take her Eliquis and didn't take her Eliquis this am. Has hx of CVA/TIA. Pt confirms bleeding sound more like continued oozing not active heavy bleeding. Told pt would msg BOWEN at [facility] to advise care for the wkend. [facility] 09-03-2023 Telephone encounter Note She should resume her apixaban. From wound care perspective, light dressing/bandaid over the area with continued pressure if actively oozing. Monitor throughout the weekend and if still oozing, please call back. [facility] 09-03-2023 Telephone encounter Note Per JESSI response, phoned pt back. She confirms no active bleeding. Will change dressing and monitor and try to avoid area irritated by previous bandage. She will resume Eliquis. Will call after hours or office if any further concerns over the wkend [facility] 08-18-2023 Miscellaneous Notes Pt scheduled and educated while in office, copy of education in separate labeled encounter. Pt vu and all questions answered. documented in this encounter [facility] 08-18-2023 Telephone encounter Note Pt scheduled and educated while in office, copy of education in separate labeled encounter. Pt vu and all questions answered. [facility] 08-18-2023 Miscellaneous Notes Images from the original note were not included. [facility]: Loop recorder implant/removal procedures YOUR PROCEDURE: Loop recorder replacement YOUR DOCTOR: Dr. Delon Pedersen DATE/TIME OF YOUR PROCEDURE: 09/01 @ 3:30 pm - ARRIVE AT 2:30 pm LOCATION OF YOUR PROCEDURE: [address] [address] Arrive to Entrance C, check in at the registration desk Please see the map on the last page for directions PRE OP REQUIREMENTS BELOW MUST BE COMPLETED PRIOR TO YOUR PROCEDURE OR IT MAY RESULT IN A DELAY OR CANCELLATION OF YOUR PROCEDURE PRE OP TESTING: NONE PRE OP LABS: You MUST complete your labs before your procedure. NONE FASTING: Ok to eat and drink as normal MEDICATIONS: Take all your medications as normal with sips of water If you were instructed to hold medications, you may take all your other medications as prescribed with sips of water. We recommend holding any over the counter supplements or vitamins the morning of your procedure. IMPORTANT INFORMATION PLEASE BE ADVISED! Dates and times of procedures are subject to change, at times due to emergencies with the hospital or physician. You will be notified as soon as possible if/when these changes may occur by the nurse at the office The automated MyChart messages about your procedure can be incorrect. Please do NOT follow any automated MyChart messages as these can provide incorrect information about your procedure time, arrival time or pre op instructions. Please follow the instructions provided by the nurse in the office at the time of your visit, in the mail or through a separate [employer] message labeled pre-op instructions . If you are unsure, please call the Surgery office [phone] WHAT TO BRING WITH YOU TO THE HOSPITAL: Bring your photo ID, insurance card and a current list of all your medications (including over the counter medications, vitamins and supplements) You do not need a charter driver for your procedure You may have up to TWO visitors for your procedure CALL THE SURGERY OFFICE AT [phone] IMMEDIATELY IF: You have any illness, infection or tested positive for COVID in the last 5 days. You are unable to come to your procedure and need to cancel or reschedule, please provide at least a 24 business hour notice Follow your blood thinner instructions as provided above. You may have your procedure cancelled or delayed if you do not follow these instructions, if you are unsure call the EP surgery office and spoke with the nurse You did not complete your required pre op testing, pre op labs or follow the medication instructions as listed above. This may result in a delay or cancellation of your procedure POST OP - AFTER YOUR PROCEDURE: You will have an incision(s), follow the instructions provided by the hospital at your discharge on how to properly care for your incision and when to remove your dressing. If you are unsure or were not instructed, ask the post op staff at the hospital or call the [facility] office at [phone] Inspect your incisions every day. Call immediately if you have any swelling, redness, bumps, drainage, your skin around your incision feels warm/hot or if you have a fever. Call your doctor if you have any signs of illness (fever 100 degrees or higher, chills, shivering, nausea, vomiting, discharge from your incision. documented [facility] Telephone encounter Note Images from the original note were not included. [facility]: Loop recorder implant/removal procedures YOUR PROCEDURE: Loop recorder replacement YOUR DOCTOR: Dr. Delon Pedersen DATE/TIME OF YOUR PROCEDURE: 09/01 @ 3:30 pm - ARRIVE AT 2:30 pm LOCATION OF YOUR PROCEDURE: [address] [place] [address] Arrive to Entrance C, check in at the registration desk Please see the map on the last page for directions PRE OP REQUIREMENTS BELOW MUST BE COMPLETED PRIOR TO YOUR PROCEDURE OR IT MAY RESULT IN A DELAY OR CANCELLATION OF YOUR PROCEDURE PRE OP TESTING: NONE PRE OP LABS: You MUST complete your labs before your procedure. NONE FASTING: Ok to eat and drink as normal MEDICATIONS: Take all your medications as normal with sips of water If you were instructed to hold medications, you may take all your other medications as prescribed with sips of water. We recommend holding any over the counter supplements or vitamins the morning of your procedure. IMPORTANT INFORMATION PLEASE BE ADVISED! Dates and times of procedures are subject to change, at times due to emergencies with the hospital or physician. You will be notified as soon as possible if/when these changes may occur by the nurse at the office The automated [employer] messages about your procedure can be incorrect. Please do NOT follow any automated [employer] messages as these can provide incorrect information about your procedure time, arrival time or pre op instructions. Please follow the instructions provided by the nurse in the office at the time of your visit, in the mail or through a separate [employer] message labeled pre-op instructions . If you are unsure, please call the Surgery office [phone] WHAT TO BRING WITH YOU TO THE HOSPITAL: Bring your photo ID, insurance card and a current list of all your medications (including over the counter medications, vitamins and supplements) You do not need a charter driver for your procedure You may have up to TWO visitors for your procedure CALL THE EP SURGERY OFFICE AT [phone] IMMEDIATELY IF: You have any illness, infection or tested positive for COVID in the last 5 days. You are unable to come to your procedure and need to cancel or reschedule, please provide at least a 24 business hour notice Follow your blood thinner instructions as provided above. You may have your procedure cancelled or delayed if you do not follow these instructions, if you are unsure call the EP surgery office and spoke with the nurse You did not complete your required pre op testing, pre op labs or follow the medication instructions as listed above. This may result in a delay or cancellation of your procedure POST OP - AFTER YOUR PROCEDURE: You will have an incision(s), follow the instructions provided by the hospital at your discharge on how to properly care for your incision and when to remove your dressing. If you are unsure or were not instructed, ask the post op staff at the hospital or call the [facility] office at [phone] Inspect your incisions every day. Call immediately if you have any swelling, redness, bumps, drainage, your skin around your incision feels warm/hot or if you have a fever. Call your doctor if you have any signs of illness (fever 100 degrees or higher, chills, shivering, nausea, vomiting, discharge from your incision. [facility] 08-18-2023 History of Presen t illness Narrative Ariel Salas Date of visit: 08/18/2023 Date of : 1985 Age: 38 y.o. Patient Active Problem List Diagnosis Near syncope SOB (shortness of breath) Mass of subcutaneous tissue of back Lipoma of back Pyelonephritis Atrial flutter ([facility]) Paroxysmal atrial fibrillation ([facility]) Status post placement of implantable loop recorder - [place] Preop cardiovascular exam No Known Allergies Current Outpatient Medications Medication Sig Dispense Refill apixaban (ELIQUIS) 5 mg tablet TAKE 1 TABLET BY MOUTH TWICE A DAY (MORNING AND BEFORE BEDTIME) 180 tablet 1 metoprolol succinate XL (TOPROL XL) 25 mg 24 hr tablet Take 1 tablet (25 mg total) by mouth in the morning. 90 tablet 3 Current Facility-Administered Medications Medication Dose Route Frequency Provider Last Rate Last Admin acetaminophen (TYLENOL) tablet 650 mg 650 mg oral Q6H Stan Dee MD Chief Complaint Patient presents with Follow-up OV per MARCOS Shortness of Breath Syncope History of Present Illness Ms. 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 She was last seen by me 08/27/21 when she had minimal AF burden without associated symptoms. She is not on an antiarrhythmic but remains on Toprol 25 mg qday for PAC suppression. Her BSC ILR reached EOS 05/28/23. She wanted to come into the office today to discuss ILR replacement. Patient presented the appointment by herself today. She tells me that she rarely feels any atrial fibrillation, she only notes 1 episode of faster heart rates, otherwise relatively asymptomatic when these episodes occur. Overall doing well, working night shifts which has been difficult for her to adjust. Tolerating her apixaban well with no significant bleeding issues. Past Medical History: Diagnosis Date Anxiety Atrial fibrillation ([facility]) Dental disease lower dentures Depression Endometriosis Leaky heart valve Low blood pressure Near syncope Seasonal allergies Stroke ([facility]) 03/27/2020 TIA TIA (transient ischemic attack) Visual impairment glasses No data recorded No data recorded No data recorded Past Surgical History: Procedure Laterality Date DILATION AND CURETTAGE OF UTERUS 05/2017 EXCISION LIPOMA Left 07/27/2018 Performed by Stan Dee MD at [facility] REMOVAL 04/2018 Family History [...] file Tobacco Use Smoking status: Every Day Current packs/day: 0.00 Average packs/day: 0.5 packs/day for 10.0 years (5.0 ttl pk-yrs) Types: Cigarettes Start date: 04/03/2010 Last attempt to quit: 04/03/2020 Years since quittin.3 Smokeless tobacco: Never Vaping Use Vaping status: Never Used Substance and Sexual Activity Alcohol use: No Drug use: Not Currently Sexual activity: Yes Partners: Male control/protection: Inserts Other Topics Concern Caffeine Use Yes Social History Narrative Not on file Social Determinants of Health Financial Resource Strain: Not on file Food Insecurity: No Food Insecurity (08/18/2023) Hunger Screening Food Insecurity - Worry: Never True Food Insecurity - Inability: Never True Transportation Needs: Not on file Physical Activity: Not on file Stress: Not on file Social Connections: Not on file Interpersonal Safety: Not on file Housing Instability: Not on file Review of Systems Review of Systems Constitutional: Negative. HENT: Negative. Eyes: Negative. Respiratory: Negative. Hematologic/Lymphatic: Bruises/bleeds easily. Skin: Negative. Musculoskeletal: Negative. Gastrointestinal: Negative. Neurological: Negative. Psychiatric/Behavioral: Negative. Allergic/Immunologic: Negative. CARDIOVASCULAR: Please review HPI. Physical Examination General appearance: Alert, oriented and cooperative. In no acute distress. Skin: Warm and dry to touch. Head: Normocephalic, without obvious abnormality, atraumatic. Ears, Nose, Mouth, Throat: Throat clear without erythema or exudate. Dentition intact. Eyes: Conjunctivae unremarkable, EOM intact. Neck: No JVD, No carotid bruit. Neck supple, trachea midline. Respiratory: Clear to auscultation bilaterally, no use of accessory muscles. Cardiovascular: RRR with normal S1 and S2 with no murmurs. Gastrointestinal: Soft, non-tender. Bowel sounds normal. Musculoskeletal: No peripheral edema. Neurologic: Oriented to time, person and place, affect appropriate. No focal/major motor defects noted. Psychiatric: Appropriate mood, memory and judgement. VITAL SIGNS: BP 112/80 (BP Site: Left Arm, BP Postition: Sitting) Pulse 78 Ht 152.4 cm (5') Wt 68 kg (150 lb) SpO2 97% BMI 29.29 kg/m Orders Placed or Reconciled This Encounter Medications metoprolol succinate XL (TOPROL XL) 25 mg 24 hr tablet Sig: Take 1 tablet (25 mg total) by mouth in the morning. Dispense: 90 tablet Refill: 3 Medications Discontinued During This Encounter Medication Reason levonorgestreL (MIRENA) 21 mcg/24 hours (8 yrs) 52 mg IUD Therapy completed metoprolol succinate XL (TOPROL XL) 25 mg 24 hr tablet Reorder IMPRESSIONS/PLAN 1. Atrial flutter, unspecified type ([facility]) Paroxysmal atrial fibrillation/flutter: CHADS2 Vasc 3 on apixaban 5 mg b.i.d.. Minimal burden on loop interrogation, [employer] loop recorder from May 28, 2020 has reached end of service 05/28/23. Relatively asymptomatic with her episodes. I discussed the indication for extraction and reimplantation of her loop recorder given her lack of significant symptoms associated with these episodes. I felt that this would be a great way to keep track of her overall burden of atrial fibrillation which can then prompt discussion regarding ablation if she were to exhibit increased burden in the future. She was agreeable to proceed. I tried to palpate her device today, difficult to palpate and thus extraction should be done under fluoroscopy. No need for NPO, okay to continue anticoagulation, same vendor/BSC, local sedation. Follow up in EP Clinic in 1 year. TODAYS ORDERS No orders of the defined types were placed in this encounter. FOLLOW UP Return in about 1 year (around 08/17/2024), or if symptoms worsen or fail to improve. PCP: OLMAN DURAN Referring Physician: OLMAN Duran [address] [id number] documented in this encounter [facility] 08-18-2023 Instructions Keily Wu [facility] - 08/18/2023 8:45 AM EDT Are You Ready To Kick The Habit? Free Tobacco Cessation Resources [facility] Services [facility] provide all employees with free tobacco cessation services that include: Counseling to understand nicotine addiction Education about medications that can help you successfully quit Assistance with developing a plan to quit Call to set up an individual appointment or find out when group classes will be held: [facility]: [phone] [facility]: [phone] [facility]: [phone] [facility]: [phone] Quit Smoking Action Plan and Resources [facility] offers an eight-week, online smoking cessation plan to all [facility] employees, regardless of whether [employer] is your medical insurance provider. Go to [email or web address] and click the Health Risk Assessment and Resources link to get started. In the [employer] menu, click Action Plans instead of Health Risk Assessment to access the Quit Smoking Action Plan. Additional smoking cessation resources are also available to all [facility] employees on the Lhxan9Whpmbg web page at [email or web address]. [place] Tobacco Cessation Program If [employer] is your medical insurance provider, there are more free resources available to you, including: No copays or deductibles on local tobacco cessation counseling services to help you quit Prescription assistance for tobacco cessation medications to help you quit For details about the tobacco cessation program available to [employer] members, go to www.[employer] (Search: Tobacco Cessation Program). [place] Tobacco Quit Line 7-232-TITG-NOW ( ) is a toll-free, telephonic service that helps [place] residents quit smoking and using tobacco. It is staffed by experts who tailor a quit plan for you and provide you with advice. [place] Tobacco Quit Line 8-226-KONP-NOW ( ) is a toll-free, telephonic service that helps [place] residents quit smoking and using tobacco. It is staffed by experts who tailor a quit plan for you and provide you with advice. Two weeks of nicotine replacement therapy may be provided at no charge, if needed. Additional Resources These national organizations also offer free information and resources to help you quit tobacco: [place] [employer]--www.cancer.org/health y/stayawayfromtobacco [place] Heart Association--www.heart.org (Search: Quit Smoking) Centers for Disease Control and Prevention--www.cdc.gov/tobacc o [place] Lung Association--www.lungusa.org documented in this encounter [facility] 06-11-2023 Miscellaneous Notes Pt calls in to discuss letter she received regarding her Loop being at [facility] ( 05/28/2023). She does have her annual EP appt with [facility] on 08/18/2023. She is worried that her Loop will not work until then. She requested that [facility] be notified as she thinks he will want to replace it before her appointment. Additionally she is having wrist surgery sometime in next month or so and wants her Loop to monitor her during surgery. Her last appointment with [facility] was 04/17/23 with [facility]. Loop shows rare Aflutter and occasional AT events.Attempted to reassure her that it would be OK to wait until appointment without success Will forward to [facility] for review/mrm Very reasonable to replace her loop recorder. EP surgery schedulers: Please schedule loop extraction/reimplantation with me, next available, service week okay. No need for NPO, no meds held, no labs needed, local sedation. [employer] vendor. Message left for pt with update from JZL/mrm LM for pt to call back and discuss dates for Loop explant/reimplant. Case prepped and paper work in call back folder. tkm 2 nd message left to return call to schedule ILR reimplant documented in this encounter [facility] 06-11-2023 Telephone encounter Note Pt calls in to discuss letter she received regarding her Loop being at [facility] ( 05/28/2023). She does have her annual EP appt with [facility] on 08/18/2023. She is worried that her Loop will not work until then. She requested that [facility] be notified as she thinks he will want to replace it before her appointment. Additionally she is having wrist surgery sometime in next month or so and wants her Loop to monitor her during surgery. Her last appointment with [facility] was 04/17/23 with [facility]. Loop shows rare Aflutter and occasional AT events.Attempted to reassure her that it would be OK to wait until appointment without success Will forward to J for review/mrm [facility] 06-11-2023 Telephone encounter Note Very reasonable to replace her loop recorder. EP surgery schedulers: Please schedule loop extraction/reimplantation with me, next available, service week okay. No need for NPO, no meds held, no labs needed, local sedation. [employer] vendor. [facility] 06-11-2023 Telephone encounter Note Message left for pt with update from JZL/mrm [facility] 06-11-2023 Telephone encounter Note LM for pt to call back and discuss dates for Loop explant/reimplant. Case prepped and paper work in call back folder. tkm [facility] 06-11-2023 Telephone encounter Note 2 nd message left to return call to schedule ILR reimplant [facility] 05-31-2023 Miscellaneous Notes Please sign and route. Thank you ANNETTE 04/15/23 CBC & CMP 12/09/22 documented in this encounter [facility] 05-31-2023 Telephone encounter Note Please sign and route. Thank you ANNETTE 04/15/23 CBC & CMP 12/09/22 [facility] 04-15-2023 Miscellaneous Notes Patient saw MARCSO in office today for pre-op clearance. MARCOS [...] for 48 hours. documented in this encounter [facility] 04-15-2023 Telephone encounter Note Patient saw MARCOS in office today [...] saying okay to hold for 48 hours. [facility] 04-15-2023 History of Presen t illness Narrative Sushiljesús Espinosa Salas Date of visit: 04/15/2023 Date of : 1985 Age: 38 y.o. Patient Active Problem List Diagnosis Near syncope SOB (shortness of breath) Mass of subcutaneous tissue of back Lipoma of back Pyelonephritis Atrial flutter (CMS-HCC) Paroxysmal atrial fibrillation ([facility]) Status post placement of implantable loop recorder - [employer] Preop cardiovascular exam No Known Allergies Current [...] tablet 650 mg 650 mg oral Q6H tSan Dee MD Chief Complaint Patient presents with Pre-op Exam ov-pre xy-auofbiovu-ltpxpphf-dr slade [id number] History of Present Illness Ariel Salas is a 38-year-old female past medical history of vasovagal syncope, prior TIA with renal infarct in 2020, paroxysmal atrial flutter with CHADS2 Vasc score of 3 on apixaban, [employer] implanted loop recorder Patient presents today for routine follow-up and preoperative risk stratification She will be having a uterine ablation at [facility] later this month She does notice [...] Medical History: Diagnosis Date Anxiety Atrial fibrillation ([facility]) Dental disease lower dentures Depression Endometriosis Leaky heart valve Low blood pressure Near syncope Seasonal allergies Stroke ([facility]) 03/27/2020 TIA TIA (transient ischemic attack) Visual impairment glasses No data recorded No data recorded No data recorded Past Surgical History: Procedure Laterality Date DILATION AND CURETTAGE OF UTERUS 05/2017 EXCISION LIPOMA Left 07/27/2018 Performed by Stan Dee MD at [facility] REMOV[facility] 04/2018 Family History [...] of TIA / renal infarct in 2020 [employer] implanted loop recorder Patient is low risk for upcoming surgery, okay to hold apixaban 48 hours prior to procedure and resume as soon as possible once deemed safe postprocedure. Continue remote monitoring Of her loop recorder, she has had brief runs of atrial flutter. Six-month follow-up in [place] with OLMAN Newell 04/15/23 2:44 PM Patient was seen when Dr Paz was present and immediately available in office suite. TODAYS ORDERS Orders Placed This Encounter Procedures POCT EKG FOLLOW UP Return in about 5 months (around 09/15/2023). PCP: OLMAN DURAN Referring Physician: OLMAN Duran [address] [place] [address] OLMAN Damon 04/15/23 [id number] documented in this encounter [facility] 02-15-2023 Note Patient Education Ma terials Follows:Disease [...] develop this condition: ? Living in a fdc or other extended care facility. ? Having [...] at home: Medicines ? Take or apply yzba-dqw-cnblaig and prescription medicines only as told by [...] provider. Document Revised: 05/24/2020 Document Reviewed: 05/24/2020 Elsevier Patient Education ? 2022 [employer] [facility] Evaluation note No assessment inform ation available [facility] Work Phone: Evaluation note Diagnosis Preop examination- Primary Unspecified pre-operative examination Paroxysmal atrial fibrillation (CMS-HCC) Atrial fibrillation Near syncope Atrial flutter, unspecified type (CMS-HCC) [facility] Left lower quadrant pain Abdominal pain, left lower quadrant Follow-up exam Unspecified follow-up examination History of ovarian cyst Personal history of other genital system and obstetric disorders documented [facility] this encounter [facility]* Diagnosis Atrial flutter, unspecified type (CMS-HCC)- Primary [facility] Diagnosis Atrial flutter, unspecified type (CMS-HCC) [facility] filedocumented in this encounter [facility] on filedocumented in this encounter [facility]ructions[facility] on filedocumented in this encounter [facility] on filedocumented in this encounter [facility] on filedocumented in this encounter [facility] on filedocumented in this encounter [facility] Summary Purpose Family History No Family History Records FoundNo Family History Records FoundNo Family History Records FoundNo Family History Records FoundNo Family History Records FoundNo Family History Records FoundNo Family History Records FoundNo Family History Records Found Advance Directives Latest Code Status on File Code Status Date Activated Date Inactivated Comments Full Code 04/02/2020 4:24 PM 04/05/2020 6:23 PM Date Activated Date Inactivated Comments 04/02/2020 4:24 PM 04/05/2020 6:23 PM Chief Complaint and Reason for Visit Chief Complaint N63.25 Chief Complaint Unknown Unknown Additional Source Comments INFORMATION SOURCE (unrecogn ized section and content) DATE CREATED AUTHOR 08/09/2018 [facility] DATE CREATED AUTHOR AUTHOR'S ORGANIZ ATION 01/13/[address] [facility] DATE CREATED AUTHOR AUTHOR'S ORGANIZ ATION 03/27/2020 [facility] DATE CREATED AUTHOR AUTHOR'S ORGANIZ ATION 04/16/2023 [facility] DATE CREATED AUTHOR AUTHOR'S ORGANIZ ATION 05/06/2023 [facility] DATE CREATED AUTHOR AUTHOR'S ORGANIZ ATION 12/10/2023 [facility] DATE CREATED AUTHOR AUTHOR'S ORGANIZ ATION 01/23/2024 [facility] DATE CREATED AUTHOR AUTHOR'S ORGANIZ ATION 02/04/[address] 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 Relationship Specialty Start Date End Date Lashell Moeller APRN-CNP [address] [place] [id number] PCP - General Family Medicine 01/22/21 Team Status: Inactive Member Role Status Dates Juan Slade Attending Provider Active Start: Viridiana mar 2023 End: April 07, 2023 Team Status: Inactive Member Role Status Dates Juan Slade Attending Provider Active Start: [facility] 2023 End: April 30, 2023 Photographic Equipment Technician Relationship Specialty Start Date End Date Lashell Moeller MD [address] [place] [phone] PCP - General Family Medicine 03/03/23 Photographic Equipment Technician Relationship Specialty Start Date End Date Lashell Moeller MD [address] [place] [phone] PCP - General Family Medicine 03/03/23 Photographic Equipment Technician Relationship Specialty Start Date End Date Lashell Moeller APRNKylieAGRICULTURAL SCIENCE PROFESSOR [address] [place] [phone] PCP - General Family Medicine 01/22/21 Photographic Equipment Technician Relationship Specialty Start Date End Date SajanLashell APRNKylieAGRICULTURAL SCIENCE PROFESSOR [address] [place] [phone] PCP - General Family Medicine 01/22/21 Photographic Equipment Technician Relationship Specialty Start Date End Date SajanLashell APRNKylieAGRICULTURAL SCIENCE PROFESSOR [address] [place] [id number] PCP - General Family Medicine 01/22/21 Photographic Equipment Technician Relationship Specialty Start Date End Date SajanLashell APRNKylieAGRICULTURAL SCIENCE PROFESSOR [address] [place] [address] PCP - General Family Medicine 01/22/21 Photographic Equipment Technician Relationship Specialty Start Date End Date SajnaLashell APRNKylieAGRICULTURAL SCIENCE PROFESSOR [address] [place] [phone] PCP - General Family Medicine 01/22/21 Photographic Equipment Technician Relationship Specialty Start Date End Date SajanLashell APRNKylieAGRICULTURAL SCIENCE PROFESSOR PCP - General Family Medicine 01/22/21 Goals (unrecognized section and content) Goals may be documented in a n alternate sectionNot on filedocumented as of this encounterNot on filedocumented as of this encounterGoals may be documented in an alternate sectionNot on filedocumented as of this encounterNot on filedocumented as of this encounterNot on filedocumented as of this encounterNot on filedocumented as of this encounterNot on filedocumented as of this encounterNot on filedocumented as of this encounterNot on filedocumented as of this encounterNot on filedocumented as of this encounter Reason for Visit (unrecogniz ed section and content) Reason Comments Pre-op Exam ov-pre op-clearance- ablation-dr slade [id number] Reason Onset Date Comments Surgical Or Dental Clearance 04/15/2023 Reason Comments ER Follow-up Reason Comments Follow-up OV per MARCOS Shortness of Breath Syncope Reason Onset Date Comments Loop 06/11/2023 Loop at [facility] Reason Onset Date Comments s/p ILR removal 09/03/2023 Reason Onset Date Comments EP Surgery (ILR replacement) 08/18/2023 Reason Comments Med Refill Reason Onset Date Comments EP Surgery ( PT Education) 08/18/2023 Reason Onset Date Comments Tachy events on loop recorder 03/06/2024 FOR RECORDS PERTAINING TO PATIENTS WHO ARE [...] BE BASED ON THE PRIMARY CLINICAL RECORDS. [employer] provides no warranty or guarantee of the accuracy or completeness of information in this document.
[2024-03-23 17:09] LABS: Basophils Absolute Auto 0.1 10^3/uL (0.0-0.1); Basophils Percent Auto 0.5 % (0.2-2.0); Eosinophils Absolute Auto 0.2 10^3/uL (0.0-0.7); Eosinophils Percent Auto 1.6 % (0.9-7.0); Hematocrit 40.9 % (36.0-48.0); Immature Granulocytes Abs Auto 0.04 10^3/uL (0.00-0.03); Immature Granulocytes Pct Auto 0.4 % (0.0-0.5); Lymphocytes Absolute Auto 3.6 10^3/uL (1.2-3.8); Lymphocytes Percent Auto 34.6 % (20.5-60.0); Mean Corpuscular HGB Conc 34.2 g/dL (29.9-35.2); Mean Corpuscular Hemoglobin 30.6 pg (26.7-34.0); Mean Corpuscular Volume 89.5 fL (81.0-99.0); Mean Platelet Volume 8.7 fL (9.5-13.5); Monocytes Absolute Auto 0.6 10^3/uL (0.3-0.8); Monocytes Percent Auto 5.9 % (1.7-12.0); Neutrophils Absolute Auto 5.9 10^3/uL (1.4-6.5); Platelet Count 351 10^3/uL (150-450); Red Blood Count 4.57 10^6/uL (4.20-5.40); Red Cell Distribution Width 12.1 % (11.0-15.0); White Blood Count 10.3 10^3/uL (4.0-11.0)
== END 2024-03-23 16:27 | disposition home or self-care (01) ==
LOC: LAB 16:27
PROVIDERS: Visit Provider Physician Assistant
DX: R10.2 Pelvic and perineal pain (principal)
CPT/HCPCS: 36415; 85025

== ENCOUNTER 2024-04-30 16:59 | Emergency (ER) | payer OTHER, SELFPAY ==
--- OUTSIDE RECORDS SUMMARY | 2024-04-30 17:04 | XMS_ITS | CCD ---
Author Organization [facility] Care Team Providers Care Wrap Turner Name Role Phone DELON DE LA CRUZ Attending Unavailable DELON DE LA CRUZ Consulting Unavailable DELON DE LA CRUZ Admitting Unavailable DEGROOT, CHERYL Consulting Unavailable ADILIA PEREZ Attending Unavailable ADILIA PEREZ Consulting Unavailable ADILIA PEREZ Admitting Unavailable OSMAR FLORES Primary Care Unavailable Suzi Gunn Consulting Unavailable MD Trevon Pruitt Attending Provider [phone] RHEA MORENO Attending Unavailable SAJAN, LASHELL Referring Unavailable SAJAN, LASHELL Primary Care Unavailable Juan Lazo Attending Provider Juan Lazo Admitting Unavailable Jose Manuel Lazoy Attending Unavailable Jose Manuel Lazoy Attending Unavailable Jose Manuel Lazoy Admitting Unavailable Trevon Pruitt Attending Unavailable Trevon Pruitt Admitting Unavailable Sajan Lashell WOMACK Primary Care Provider [phone] Sajan PVC LOADER-INNOVATIONS PARAPROFESSIONAL, Lashell Primary Care Provider [phone] Sajan PVC LOADER-INNOVATIONS PARAPROFESSIONAL, Lashell Primary Care Provider [phone] Sajan PVC LOADER-INNOVATIONS PARAPROFESSIONAL, Lashell Primary Care Provider [phone] DELON PEDERSEN Attending Unavailable SAJAN, LASHELL Referring Unavailable SAJAN, LASHELL Primary Care Unavailable SAJAN, LASHELL Primary Care Unavailable ISELA NOLASCO Attending Unavailable HARESH HUIZAR Attending Unavailable SAJAN, LASHELL Referring Unavailable SAJAN, LASHELL Primary Care Unavailable Sajan LINE CONSTRUCTION ENGINEER-C, Lashell Gifford Attending Unavailable Sajan LINE CONSTRUCTION ENGINEER-C, Lashell A Primary Care Unavailable ROXY JUNIOR Attending Unavailable VERNONROXY BUTLER Attending Unavailable VERNON, ROXY Attending Unavailable VIOLETJOSE MANUELY Attending Unavailable VIOLETJOSE MANUEL MCFARLANDY Attending Unavailable VERNON ROXY Attending Unavailable Allergies Allergy Classification Reported Allergen(s) Allergy Type Date of Onset Reaction(s) Facility (12 sources) Sulfamethoxazole Allergy to substance 03-03-19 Rash [facility] (12 sources) Trimethoprim Drug Allergy 03-03-19 [facility] (1 source) No Known Medication Allergies; Translations: [No Known Medication Allergies] Propensity to adverse reactions to drug (disorder) [facility] Repository Medications Current Medications Medication Drug Class(es) Dates Sig (Normalized) Sig (Original) acetaminophen 32 mg/ml oral solution (20 sources) Start: 02-17-2023 acetaminophen (Tylenol) 160 MG/5ML liquid 02/17/2023 Active Start: 07-27-2018 acetaminophen (TYLENOL) tablet 650 mg apixaban 5 mg oral tablet (20 sources) Factor Xa Inhibitor Start: 03-29-2024 take 1 tablet by mouth twice daily at bedtime apixaban (ELIQUIS) 5 mg tablet Indications: Atrial flutter, unspecified type (CMS-HCC) TAKE 1 TABLET BY MOUTH TWICE A DAY (MORNING AND BEFORE BEDTIME) 90 tablet 3 03/29/2024 Active Start: 06-01-2023 End: 03-29-2024 take 1 tablet by mouth twice daily at bedtime apixaban (ELIQUIS) 5 mg tablet Indications: Atrial flutter, unspecified type (CMS-HCC) TAKE 1 TABLET BY MOUTH TWICE A DAY (MORNING AND BEFORE BEDTIME) 180 tablet 1 06/01/2023 03/29/2024 Discontinued (Reorder) Start: 11-30-2022 End: 06-01-2023 take 1 tablet by mouth once daily at bedtime apixaban (Eliquis) 5 MG tablet TAKE ONE TABLET BY MOUTH EVERY MORNING AND BEFORE BEDTIME 11/30/2022 Active cetirizine hydrochloride 10 mg oral tablet (12 sources) Histamine-1 Receptor Antagonist Start: 02-15-2023 cetirizine (ZyrTEC) 10 MG tablet 02/15/2023 Active ciprofloxacin 500 mg oral tablet (8 sources) Quinolone Antimicrobial Start: 03-23-2024 End: 04-02-2024 take 1 tablet by mouth in the morning ciprofloxacin (Cipro) 500 MG tablet Indications: Urinary Tract Infection Take 1 tablet (500 mg) by mouth in the morning and 1 tablet (500 mg) before bedtime. Do all this for 10 days. 20 tablet 03/23/2024 04/02/2024 Active levonorgestrel 0.139185 mg/hr intrauterine system (17 sources) Progestin, Progestin-containin g Intrauterine Device Start: 02-17-2023 End: 03-30-2024 Levonorgestrel (Mirena, 52 MG,) 20 MCG/DAY intrauterine device 52 mg 02/17/2023 03/30/2024 Discontinued Start: 02-17-2023 End: 08-18-2023 levonorgestreL (MIRENA) 21 m cg/24 hours (8 yrs) 52 mg IUD 1 each. 02/17/2023 08/18/2023 Discontinued (Therapy completed) 24 hr metoprolol succinate 25 mg extended release oral tablet (20 sources) beta-Adrenergic Yung Start: 03-29-2024 take 1 tablet by mouth every twenty-four hours in the morning metoprolol succinate XL (TOPROL XL) 25 mg 24 hr tablet Take 1 tablet (25 mg total) by mouth in the morning. 90 tablet 3 03/29/2024 Active Start: 08-10-2022 End: 03-29-2024 take 1 tablet by mouth every twenty-four hours in the morning metoprolol succinate XL (Toprol-XL) 25 MG 24 hr tablet Take 25 mg by mouth in the morning. 08/10/2022 Active traMADol hydrochloride 50 mg oral tablet (4 sources) Opioid Agonist take 1 tablet by mouth every six hours as needed traMADol (Ultram) 50 MG tablet Take 50 mg by mouth every 6 (six) hours if needed Active Problems Active Problems Problem Classification Problem Date Documented Date Episodic/Chronic Abdominal pain (11 sources) Left lower quadrant pain; Translations: [Left lower quadrant pain] Onset: 11-29-2023 01-20-2024 Episodic Cardiac dysrhythmias (20 sources) Paroxysmal atrial fibrillation; Translations: [Unspecified atrial flutter] Onset: 04-17-2020 08-18-2023 Chronic Other aftercare (2 sources) Patient encounter status; Translations: [Encounter for follow-up examination after completed treatment for conditions other than malignant neoplasm] 01-20-2024 Episodic Other circulatory disease (12 sources) History of cardiovascular surgery; Translations: [Presence of other cardiac implants and grafts] Onset: 07-10-2020 07-10-2020 Chronic Other female genital disorders (1 source) Abnormal uterine bleeding; Translations: [Abnormal uterine and vaginal bleeding, unspecified] 04-26-2024 Chronic Other female genital disorders (3 sources) History of gynecological disorder; Translations: [Personal [...] 05-15-2019 Episodic Other and unspecified benign neoplasm (12 sources) Lipoma of back; Translations: [Benign lipomatous neoplasm of skin and subcutaneous tissue of trunk] Onset: 08-08-2018 08-08-2018 Episodic Other lower respiratory disease (4 sources) Shortness of breath; Translations: [SHORTNESS OF BREATH] Onset: 05-11-2019 Episodic Other lower respiratory disease (12 sources) Dyspnea; Translations: [Shortness of breath] Onset: 06-24-2017 06-24-2017 Episodic Other lower respiratory disease (1 source) Shortness of breath Onset: 08-18-2023 Episodic Other skin disorders (12 sources) Mass of subcutaneous tissue of back; Translations: [Localized swelling, mass and lump, trunk] Onset: 06-21-2018 06-21-2018 Episodic Syncope (15 sources) Syncope and collapse; Translations: [Near syncope] Onset: 06-22-2017 06-22-2017 Episodic Urinary tract infections (12 sources) Pyelonephritis; Translations: [Tubulo-interstitia l nephritis, not specified as acute or chronic] Onset: 04-02-2020 04-02-2020 Episodic Results Test Name Value Interpretation Reference Range Facility US PELVIC COMPLETE W/ TVon 0 04-19-2024 US PELVIC COMPLETE W/ TV EXAM: Pelvic Ultrasound, Transvaginal. REASON FOR EXAM: History of ovarian cyst. COMPARISON: None TECHNIQUE: Grayscale and color Doppler ultrasound of the pelvis performed. FINDINGS: Uterus/Endometrium: The uterus is heterogeneous. There is a hypoechoic avascular mass in the posterior uterus measuring 1.5 x 1.3 x 2.9 cm. The endometrium is not well depicted. Cervix: Not well seen. Ovaries: Normal in size with normal vascularity by Doppler US. Peritoneum: No free fluid visualized. Measurements: Uterus: 8.9 x 4.5 x 6.3 cm Volume: 131.2 cc EM: Not well visualized Right Ovary: 2.3 x 1.1 x 1.7 cm Volume: 2.1 cc Left Ovary: 2.6 x 2.7 x 1.7 cm Volume: 5.3 cc IMPRESSION: Ill-defined heterogeneous endometrium with a hypoechoic subendometrial mass. This is possibly a fibroid. *This report is generated using voice recognition reporting ([employer]). On occasion [employer] erroneously drops words from the report or replaces the spoken word with similar sounding words. Please call with any questions/concerns regarding this report.* Dictated and transcribed 04/19/24/dpobey This report has been electronically signed and approved by the interpreting radiologist. Normal Not Available Comment on above: Order Comment: US PE LVIS-TRANSVAG IF INDICATED No LMP recorded. Patient has had an ablation. Outside Recordson 03-30-2024 Outside Records [id number]#1[facility]24 [facility] Outside Recordson 03-28-2024 Outside Records [id number]#1.00[facility] RECURRENT VAGINITIS (HTRX)on 03-24-2024 ATOPOBIUM VAGINAE 0 [facility] ATOPOBIUM VAGINAE Not detected [facility] BVAB 2,3 (BACTERIAL VAGINOSIS ASSOCIATED BACTERIA 2, 3); MOBILUNCUS SPP 0 [facility] BVAB 2,3 (BACTERIAL VAGINOSIS ASSOCIATED BACTERIA 2, 3); MOBILUNCUS SPP Not detected [facility] MAMI ALBICANS, PARAPSILOSIS, TROPICALIS 0 [facility] MAMI ALBICANS, PARAPSILOSIS, TROPICALIS Not detected [facility] MAMI GLABRATA 0 [facility] MAMI GLABRATA Not detected [facility] MAMI KRUSEI 0 [facility] MAMI KRUSEI Not detected [facility] CHLAMYDIA TRACHOMATIS 0 [facility] CHLAMYDIA TRACHOMATIS Not detected [facility] GARDNERELLA VAGINALIS 0 [facility] GARDNERELLA VAGINALIS Not detected [facility] MEGASPHAERA (TYPES 1, 2) 0 [facility] MEGASPHAERA (TYPES 1, 2) Not detected [facility] MYCOPLASMA GENITALIUM 0 [facility] MYCOPLASMA GENITALIUM Not detected [facility] NEISSERIA GONORRHOEAE 0 [facility] NEISSERIA GONORRHOEAE Not detected [facility] TRICHOMONAS VAGINALIS 0 [facility] TRICHOMONAS VAGINALIS Not detected [facility] ALL CBC WITH AUTO DIFFon BASOPHILS ABSOLUTE AUTO 0.1 [facility] Basophils/100 WBC (Bld) 0.5 % 0.2 - 2.0 % [facility] Eosinophils/100 WBC (Bld) 1.6 % 0.9 - 7.0 % [facility] Erythrocyte distribution width (RBC) [Ratio] 12.1 % 11.0 - 15.0 % [facility] Hematocrit (Bld) [Volume fraction] 40.9 % 36.0 - 48.0 % [facility] Hemoglobin (Bld) [Mass/Vol] 14 g/dL 12.0 - 16.0 g/dL [facility] IMMATURE GRANULOCYTES ABS AUTO 0.04 High [facility] Immature granulocytes/100 WBC (Bld) 0.4 % 0.0 - 0.5 % [facility] Interpretation and review of laboratory results Abnormal [facility] LYMPHOCYTES ABSOLUTE AUTO 3.6 [facility] Lymphocytes/100 WBC (Bld) 34.6 % 20.5 - 60.0 % [facility] MCH (RBC) [Entitic mass] 30.6 pg 26.7 - 34.0 pg [facility] MCHC (RBC) [Mass/Vol] 34.2 g/dL 29.9 - 35.2 g/dL [facility] MCV (RBC) [Entitic vol] 89.5 fL 81.0 - 99.0 fL [facility] MONOCYTES ABSOLUTE AUTO 0.6 [facility] Monocytes/100 WBC (Bld) 5.9 % 1.7 - 12.0 % [facility] NEUTROPHILS ABSOLUTE AUTO 5.9 [facility] Neutrophils/100 WBC (Bld) 57 % 43.0 - 75.0 % [facility] Platelet mean volume (Bld) [Entitic vol] 8.7 fL Low 9.5 - 13.5 fL [facility] TBH EO # 0.2 [facility] PLT 351 [facility] RBC 4.57 [facility] WBC 10.3 [facility] Outside Recordson 02-03-2024 Outside Records [id number]#[id number] OTGTIFF [facility] CBC AND AUTO DIFFon 11-29-19 ABSOLUTE BASOPHIL 0.1 X10E9/L Normal 0.0-0.2 [facility] Comment on above: Performed By: #### C HINA, CMP #### [facility] ([id number]) [address] [place] [address] 22217 ABSOLUTE NEUTROPHIL 4.6 X10E9/L Normal 1.5-6.6 [facility] Comment on above: Performed By: #### C HINA, CMP #### [facility] ([id number]) [address] [place] [address] 69337 Basophils/100 WBC (Bld) 1.5 % Normal [facility] Comment on above: Performed By: #### C HINA, CMP #### [facility] ([id number]) [address] [place] [address] 68131 Eosinophils (Bld) [#/Vol] 0.2 10*3/uL Normal 0.0-0.4 [facility] Comment on above: Performed By: #### C BCA, CMP #### [facility] ([id number]) [address] [place] [address] 84264 Eosinophils/100 WBC (Bld) 2.1 % Normal [facility] Comment on above: Performed By: #### C BCA, CMP #### [facility] ([id number]) [address] [place] [address] 23921 Erythrocyte distribution width (RBC) [Ratio] 13.1 % Normal 11.5-15.0 [facility] Comment on above: Performed By: #### C BCA, CMP #### [facility] ([id number]) [address] [place] [address] 04837 Hematocrit (Bld) [Volume fraction] 41.7 % Normal 35-47 [facility] Comment on above: Performed By: #### C HINA, CMP #### [facility] ([id number]) [address] [place] [address] 72621 Hemoglobin (Bld) [Mass/Vol] 14.2 g/dL Normal 11.7-15.5 [facility] Comment on above: Performed By: #### C HINA, CMP #### [facility] ([id number]) [address] [place] [address] 72966 Lymphocytes (Bld) [#/Vol] 4.1 10*3/uL High 1.0-3.5 [facility] Comment on above: Performed By: #### C BCA, CMP #### [facility] ([id number]) [address] [place] [address] 71258 Lymphocytes/100 WBC (Bld) 42.0 % Normal [facility] Comment on above: Performed By: #### C BCA, CMP #### [facility] ([id number]) [address] [place] [address] 20361 MCH (RBC) [Entitic mass] 30.2 pg Normal 27-34 [facility] Comment on above: Performed By: #### C BCA, CMP #### [facility] ([id number]) [address] [place] [address] 14236 MCHC (RBC) [Mass/Vol] 34.1 g/dL Normal 32-36 [facility] Comment on above: Performed By: #### C BCA, CMP #### [facility] ([id number]) [address] [place] [address] 66148 MCV (RBC) [Entitic vol] 89 fL Normal 80-100 [facility] Comment on above: Performed By: #### C BCA, CMP #### [facility] ([id number]) [address] [place] [address] 15983 Monocytes (Bld) [#/Vol] 0.7 10*3/uL Normal 0-0.9 [facility] Comment on above: Performed By: #### C HINA, CMP #### [facility] ([id number]) [address] [place] [address] 65107 Monocytes/100 WBC (Bld) 7.3 % Normal [facility] Comment on above: Performed By: #### C BCA, CMP #### [facility] ([id number]) [address] [place] [address] 48182 Neutrophils/100 WBC (Bld) 47.1 % Normal [facility] Comment on above: Performed By: #### C BCA, CMP #### [facility] ([id number]) [address] [place] [address] 73489 Platelet mean volume (Bld) [Entitic vol] 6.5 fL Low 7-12 [facility] Comment on above: Performed By: #### C BCA, CMP #### [facility] ([id number]) [address] [place] [address] 15447 Platelets (Bld) [#/Vol] 367 10*3/uL Normal 150-450 [facility] Comment on above: Performed By: #### C BCA, CMP #### [facility] ([id number]) [address] [place] [address] 15193 RBC COUNT 4.71 X10E12/L Normal 3.80-5.20 [facility] Comment on above: Performed By: #### C BCA, CMP #### [facility] ([id number]) [address] [place] [address] 80107 WBC (Bld) [#/Vol] 9.8 10*3/uL Normal 4.0-11.0 [facility] Comment on above: Performed By: #### C BCA, CMP #### [facility] ([id number]) [address] [place] [address] 05159 COMPREHENSIVE METABOLIC PANE Abner 11-29-2023 Albumin [Mass/Vol] 4.0 g/dL Normal 3.2-5.3 [facility] Comment on above: Performed By: #### C BCA, CMP #### [facility] ([id number]) [address] [place] [address] 93835 ALP [Catalytic activity/Vol] 66 U/L Normal 39-130 [facility] Comment on above: Performed By: #### C BCA, CMP #### [facility] ([id number]) [address] [place] [address] 74749 ALT [Catalytic activity/Vol] 19 U/L Normal 0-31 [facility] Comment on above: Performed By: #### C BCA, CMP #### [facility] ([id number]) [address] [place] [address] 76463 Anion gap [Moles/Vol] 10 mmol/L Normal 5-15 [facility] Comment on above: Performed By: #### C BCA, CMP #### [facility] ([id number]) [address] [place] [address] 91090 AST [Catalytic activity/Vol] 19 U/L Normal 0-41 [facility] Comment on above: Performed By: #### C BCA, CMP #### [facility] ([id number]) [address] [place] [address] 37996 Bilirubin [Mass/Vol] 0.4 mg/dL Normal 0.3-1.2 [facility] Comment on above: Performed By: #### C BCA, CMP #### [facility] ([id number]) [address] [place] [address] 17558 Calcium [Mass/Vol] 9.3 mg/dL Normal 8.5-10.5 [facility] Comment on above: Performed By: #### C BCA, CMP #### [facility] ([id number]) [address] [place] [address] 51425 Chloride [Moles/Vol] 101 mmol/L Normal 98-109 [facility] Comment on above: Performed By: #### C BCA, CMP #### [facility] ([id number]) [address] [place] [address] 65469 CO2 [Moles/Vol] 27 mmol/L Normal 22-32 [facility] Comment on above: Performed By: #### C BCA, CMP #### [facility] ([id number]) [address] [place] [address] 31589 Creatinine [Mass/Vol] 0.80 mg/dL Normal 0.40-1.00 [facility] Comment on above: Result Comment: METH OD TRACEABLE TO IDMS STANDARD Performed By: #### C BCA, CMP #### [facility] ([id number]) [address] [place] [address] [place] [address] eGFR (CKD-EPI) NON-RACE DEPENDENT >90 Normal >59 [facility] Comment on above: Result Comment: Reported eGFR is based on the CKD-EPI 2020 equation that does not use a race coefficient. Performed By: #### C BCA, CMP #### [facility] ([id number]) [address] [place] [address] 55474 Glucose [Mass/Vol] 96 mg/dL Normal 65-99 [facility] Comment on above: Performed By: #### C BCA, CMP #### [facility] ([id number]) [address] [place] [address] 80225 Potassium [Moles/Vol] 3.5 mmol/L Normal 3.5-5.0 [facility] Comment on above: Performed By: #### C BCA, CMP #### [facility] ([id number]) [address] [place] [address] 54529 Protein [Mass/Vol] 7.3 g/dL Normal 6.0-8.0 [facility] Comment on above: Performed By: #### C BCA, CMP #### [facility] ([id number]) [address] [place] [address] 73084 Sodium [Moles/Vol] 138 mmol/L Normal 134-146 [facility] Comment on above: Performed By: #### C BCA, CMP #### [facility] ([id number]) [address] [place] [address] 58636 Urea nitrogen [Mass/Vol] 16 mg/dL Normal 5-23 [facility] Comment on above: Performed By: #### C BCA, CMP #### [facility] ([id number]) [address] [place] [address] ABDOMEN AND PELVIS W CONT on [...] Hwang MD on 11/29/2023 8:52 PM Normal [facility] HCG ( test) Ql (U)o n 11-29-2023 Beta HCG ( test) Ql (U) Negative Normal NEG [facility] Comment on above: Performed By: #### 2 106-3 #### [facility] ([id number]) [address] [place] [address] 11819 URN MACROSCOPIC NURon 2023 BILIRUBIN TARIK Negative Normal [facility] Comment on above: Performed By: #### N UM #### [facility] ([id number]) [address] [place] [address] 34736 BLOOD/HGB TARIK Trace Abnormal [facility] Comment on above: Performed By: #### N UM #### [facility] ([id number]) [address] [place] [address] 66558 GLUCOSE TARIK Negative Normal [facility] Comment on above: Performed By: #### N UM #### [facility] ([id number]) [address] [place] [address] 79623 KETONES TARIK Negative Normal [facility] Comment on above: Performed By: #### N UM #### [facility] ([id number]) [address] [place] [address] 47354 LEUKOCYTE ESTERASE TARIK Negative Normal [facility] Comment on above: Performed By: #### N UM #### [facility] ([id number]) [address] [place] [address] 27387 NITRITE TARIK Negative Normal NEG [facility] Comment on above: Performed By: #### N UM #### [facility] ([id number]) [address] [place] [address] 44507 PH TARIK 7.0 Normal 5.0-8.5 [facility] Comment on above: Performed By: #### N UM #### [facility] ([id number]) [address] [place] [address] 66627 PROTEIN TARIK Negative Normal NEG [facility] Comment on above: Performed By: #### N UM #### [facility] ([id number]) [address] [place] [address] 40005 SPECIFIC GRAVITY TARIK 1.025 Normal 1.003-1.035 [facility] Comment on above: Performed By: #### N UM #### [facility] ([id number]) [address] [place] [address] 53102 UROBILINOGEN TARIK 0.2 eu/dL Normal <1.1 [facility] Comment on above: Performed By: #### N UM #### [facility] ([id number]) [address] [place] [address] 38059 Outside Recordson 09-01-2023 Outside Records [id number]#[id number] [facility] 05-03-2023 Outside Records [id number]#[id number] Abner 04-30-2023 L Specimen: [id number] Received: 05/03/23 Status: SALIMA Pineda Num: [id number] Spec Type: Surgical Subm Dr: Juan Lazo Tissues: A Fallopian Tube - Sterilization (BILATERAL FT) Procedures: HE/2, Gross/Micro L2 Age/ Patient Sex Location Account Attending Physician Scott Hooker 38/F LABELL [id number] Juan Lazo SPEC NUM: [id number] RECD: 05/03/23 STATUS: SALIMA AUSTINJoseph NUM: [id number] CRISTINA: 04/30/[address]: Juan Lazo ENTERED: 05/03/23 [facility] DR: Ajit,Lab SPEC TYPE: Surgical [...] an unremarkable, pinpoint lumen on cut section. Security Systems Technician sections are submitted in two cassettes labeled A1-A2. CPT Codes 91649 Specimen: [id number] Received: 05/03/23 Status: SALIMA Shonna Num: [id number] Spec Type: Surgical Subm Dr: Juan Lazo Tissues: A Fallopian Tube - Sterilization (BILATERAL FT) Procedures: HE/2, Gross/Micro L2 Patient: Feliciano Hookerdylon Espinosa [id number] (Continued) Signed (signature on file) Micheal Napier MD 05/04/23 1431 [facility] POCT EKGOrdered By: Keily Herrera on 04-15-2023 [facility] Abner 04-07-2023 L Specimen: [id number] Received: 04/08/23 Status: SALIMA Pineda Num: [id number] Spec Type: Surgical Subm Dr: Juan Lazo Tissues: A Endometrium - Biopsy (EMBX) Procedures: HE/2, Gross/Micro L4 Age/ Patient Sex Location Account Attending Physician Scott Hooker 38/F LABELL [id number] Juan Lazo SPEC NUM: [id number] RECD: 04/08/23 STATUS: COURTNEYElo PINEDA NUM: [id number] CRISTINA: 04/07/23- SUBM DR: Juan Lazo ENTERED: 04/08/23-[address]: Ajit,Lab SPEC TYPE: [...] in one cassette labeled A1. CPT Codes 09223 Specimen: [id number] Received: 04/08/23 Status: SALIMA Pineda Num: [id number] Spec Type: Surgical Subm Dr: Juan Lazo Tissues: A Endometrium - Biopsy (EMBX) Procedures: SERINA/Briseida, Shaina/James L4 Patient: Scott Hooker [id number] (Continued) Signed (signature on file) Micheal Napier MD 04/10/23 1211 [facility] Abner 07-15-2022 L --- Specimen: [id number] Received: 07/15/22 Status: SALIMA Pineda Num: [id number] Spec Type: Surgical Subm Dr: Trevon Pruitt MD Tissues: A BREAST CORE NO CALCS (LT BREAST BX) Procedures: HE/3, Gross/Micro L4, CK5 6, ER, p63 Age/ Patient Sex Location Account Attending Physician Scott Hooker 37/F KELVIN [id number] Trevon Pruitt MD SPEC NUM: [id number] RECD: 07/15/22 STATUS: SALIMA PINEDA NUM: [id number] CRISTINA: 07/15/[address] [facility] [address]: Trevon Pruitt MD ENTERED: 07/15/22 [facility] DR: Vitaly,Lab SPEC TYPE: Surgical [...] Time: 0 Formalin Fixation Time: 9.42 Specimen: [id number] Received: 07/15/22 Status: SALIMA Pineda Num: [id number] Spec Type: Surgical Subm Dr: Trevon Pruitt MD Tissues: A BREAST CORE NO CALCS (LT BREAST BX) Procedures: HE/3, Gross/Micro L4, CK5 6, ER, p63 Patient: Scott Hooker [id number] (Continued) Specimen: [id number] Received: 07/15/22 (Continued) Signed (signature on file) Mary Jeffers MD 07/17/22 1057 Specimen: [id number] Received: 07/15/22 Status: SALIMA Pineda Num: [id number] Spec Type: Surgical Subm Dr: Trevon Pruitt MD Tissues: A BREAST CORE NO CALCS (LT BREAST BX) Procedures: HE/3, Gross/Micro L4, CK5 6, ER, p63 Patient: Scott Hooker [id number] (Continued) Specimen: [id number] Received: 07/15/22 (Continued) Microscopic Description Two H E slides reviewed. The microscopic examination confirms the diagnosis. Immunostains for ER p53 and cytokeratin 5/6 are performed with adequate controls immunohistochemical and microscopic patents confirms the above diagnosis. Intradepartmental consultation with a second pathologist (JERRI) who agrees with the diagnosis. CPT Codes 99354, 42501, 26897t8 Specimen: [id number] Received: 07/15/22 Status: SALIMA Pineda Num: [id number] Spec Type: Surgical Subm Dr: Trevon Pruitt MD Tissues: A BREAST CORE NO CALCS (LT BREAST BX) Procedures: HE/3, Gross/Micro L4, CK5 6, ER, p63 Patient: Scott Hooker [id number] (Continued) Signed (signature on file) Mary Jeffers MD 07/17/22 1057 Normal [facility] CBC AUTO DIFFon 03-23-2020 Basophils (Bld) [#/Vol] 0.1 103/ul Normal 0.0-0.1 [facility] Comment on above: Performed By: #### C BC #### [facility] [address] [place] [address] Akin Aysha Basophils/100 WBC (Bld) 0.6 % Normal 0.2-2.0 [facility] Comment on above: Performed By: #### C BC #### [facility] [address] [place] [address] Akin Aysha Eosinophils (Bld) [#/Vol] 0.2 103/ul Normal 0.0-0.7 [facility] Comment on above: Performed By: #### C BC #### [facility] [address] [place], [place] [address] Akin Aysha Eosinophils/100 WBC (Bld) 2.3 % Normal 0.9-7.0 [facility] Comment on above: Performed By: #### C BC #### [facility] [address] [place] [address] Akin Aysha Erythrocyte distribution width (RBC) [Ratio] 12.2 % Normal 11.0-15.0 [facility] Comment on above: Performed By: #### C BC #### [facility] [address] [place] [id number] Akin Aysha Hematocrit (Bld) [Volume fraction] 43.4 % Normal 36.0-48.0 [facility] Comment on above: Performed By: #### C BC #### [facility] [address] [id number] A[place] Aysha Hemoglobin (Bld) [Mass/Vol] 14.4 g/dL Normal 12.0-16.0 [facility] Comment on above: Performed By: #### C BC #### [facility] [address] [id number] Akin Aysha IG # 0.03 10e3/ul Normal 0.00-0.03 [facility] Comment on above: Performed By: #### C BC #### [facility] [address] [place] [address] Akin Aysha IG % 0.3 % Normal 0.0-0.5 [facility] Comment on above: Performed By: #### C BC #### [facility] [address] [place], [place] [phone] Akin Aysha Lymphocytes (Bld) [#/Vol] 3.8 103/ul Normal 1.2-3.8 [facility] Comment on above: Performed By: #### C BC #### [facility] [address] [place], [place] [address] Akin Aysha Lymphocytes/100 WBC (Bld) 37.3 % Normal 20.5-60.0 [facility] Comment on above: Performed By: #### C BC #### [facility] [address] [place], [place] [phone] Akin Aysha MANUAL DIFF REQ NO Normal [facility] Comment on above: Performed By: #### C BC #### [facility] [address] [place], [place] [phone] Akin Aysha MCH (RBC) [Entitic mass] 30.9 pg Normal 26.7-34.0 [facility] Comment on above: Performed By: #### C BC #### [facility] [address] [place], [place] [address] Akin Aysha MCHC (RBC) [Mass/Vol] 33.2 g/dL Normal 29.9-35.2 [facility] Comment on above: Performed By: #### C BC #### [facility] [address] [place], [place] [address] Akin Aysha MCV (RBC) [Entitic vol] 93.1 fL Normal 81.0-99.0 [facility] Comment on above: Performed By: #### C BC #### [facility] [address] [place] [address] Akin Aysha Monocytes (Bld) [#/Vol] 0.9 103/ul Critically high 0.3-0.8 [facility] Comment on above: Performed By: #### C BC #### [facility] [address] [place] [address] Akin Aysha Monocytes/100 WBC (Bld) 8.7 % Normal 1.7-12.0 [facility] Comment on above: Performed By: #### C BC #### [facility] [address] [place] [address] Akin Aysha Neutrophils (Bld) [#/Vol] 5.2 103/ul Normal 1.4-6.5 [facility] Comment on above: Performed By: #### C BC #### [facility] [address] [place] [address] Akin Aysha Neutrophils/100 WBC (Bld) 50.8 % Normal 43.0-75.0 [facility] Comment on above: Performed By: #### C BC #### [facility] [address] [place] [address] Akin Aysha Platelet mean volume (Bld) [Entitic vol] 8.6 fL Critically low 9.5-13.5 [facility] Comment on above: Performed By: #### C BC #### [facility] [address] [place] [address] Akin Aysha Platelets (Bld) [#/Vol] 347 103/ul Normal 150-450 [facility] Comment on above: Performed By: #### C BC #### [facility] [address] [place], [place] [address] [place] RBC (Bld) [#/Vol] 4.66 106/ul Normal 4.20-5.40 [facility] Comment on above: Performed By: #### C BC #### [facility] [address] [place], [place] [address] A[place] WBC (Bld) [#/Vol] 10.2 103/ul Normal 4.0-11.0 [facility] Comment on above: Performed By: #### C BC #### [facility] [address] [place], [place] [address] STROKE HEAD WOon 03-23-19 [...] time of dictation. Electronically authenticated by: SUZI GUNN Date: 2020-03-22 23:46 Normal [facility] CTA HEAD WO W CONon 03-23-19 21 CTA HEAD WO W CON EXAM: CTA HEAD WO W CON 03/22/2020 11:04 PM EST OH001 CLINICAL STATEMENT: Dysarthria COMPARISON: No prior studies are available at the time of dictation. TECHNIQUE: Routine [place]/brain CT angiogram protocol was performed following 75 cc Omnipaque 350 of intravenous contrast. AEC is utilized. 2-D and 3D reconstructions were reviewed. FINDINGS: There is no evidence for intracranial aneurysm and/or high-grade stenosis of the [place]. The vertebrobasilar artery is patent [...] SUZI SAID Date: 2020-03-23 00:52 Normal [facility] CTA NECK WO W CONon 03-23-19 [...] SUZI SAID Date: 2020-03-23 00:54 Normal [facility] CULTURE URINEon 03-23-2020 CULTURE URINE Culture Observations : NO GROWTH Normal [facility] Comment on above: Performed By: #### I NFLUAB #### [facility] [address] [address] [place] DRUG SCREEN RAPID (URINE)on 03-23-2020 AMP Negative Normal NEGATIVE [facility] Comment on above: Performed By: #### U MICRO, DRUGRPD, ERUR #### [facility] [address] [place] [address] Akin Aysha BAR Negative Normal NEGATIVE [facility] Comment on above: Performed By: #### U MICRO, DRUGRPD, ERUR #### [facility] [address] [place] [address] A[place] A[place]ha BUP Negative Normal NEGATIVE [facility] Comment on above: Performed By: #### U MICRO, DRUGRPD, ERUR #### [facility] [address] [place] [address] Akin [place]ha BZO Negative Normal NEGATIVE [facility] Comment on above: Performed By: #### U MICRO, DRUGRPD, ERUR #### [facility] [address] [place] [address] A[place] JESUS Negative Normal NEGATIVE [facility] Comment on above: Performed By: #### U MICRO, DRUGRPD, ERUR #### [facility] [address] [place] [address] [facility] SEE BELOW Normal [facility] Comment on above: Result Comment: AMP [...] By: #### U MICRO, DRUGRPD, ERUR #### [facility] [address] [place] [address] Akin Aysha DRUG CUT HEADER DRUG CLASS TEST SYST EM CUT-OFF CONCENTRATIONS ARE FOLLOWS: Normal [facility] Comment on above: Performed By: #### U MICRO, DRUGRPD, ERUR #### [facility] [address] [place] [address] A[place]ha mAMP Negative Normal NEGATIVE [facility] Comment on above: Performed By: #### U MICRO, DRUGRPD, ERUR #### [facility] [address] [place] [address] Akin [place] MTD Negative Normal NEGATIVE [facility] Comment on above: Performed By: #### U MICRO, DRUGRPD, ERUR #### [facility] [address] [place] [address] Akin Aysha OPI Negative Normal NEGATIVE [facility] Comment on above: Performed By: #### U MICRO, DRUGRPD, ERUR #### [facility] [address] [place] [address] A[place] OXY Negative Normal NEGATIVE [facility] Comment on above: Performed By: #### U MICRO, DRUGRPD, ERUR #### [facility] [address] [place] [address] Akin A[place]ha PCP Negative Normal NEGATIVE [facility] Comment on above: Performed By: #### U MICRO, DRUGRPD, ERUR #### [facility] [address] [place] [address] Akin Aysha PPX Negative Normal NEGATIVE [facility] Comment on above: Performed By: #### U MICRO, DRUGRPD, ERUR #### [facility] [address] [place] [address] Akin Aysha TCA Negative Normal NEGATIVE [facility] Comment on above: Performed By: #### U MICRO, DRUGRPD, ERUR #### [facility] [address] [place] [address] Akin Aysha THC Positive Abnormal NEGATIVE [facility] Comment on above: Performed By: #### U MICRO, DRUGRPD, ERUR #### [facility] [address] [place] [address] Akin Aysha ER URINE PROFILEon 1 Bilirubin [Mass/Vol] Negative Normal NEGATIVE [facility] Comment on above: Performed By: #### U MICRO, DRUGRPD, ERUR #### [facility] [address] [place] [address] Akin A[place] BLOOD TRACE-INTACT Abnormal NEGATIVE [facility] Comment on above: Performed By: #### U MICRO, DRUGRPD, ERUR #### [facility] [address] [place] [address] Akin [place] Clarity (U) CLEAR Normal CLEAR [facility] Comment on above: Performed By: #### U MICRO, DRUGRPD, ERUR #### [facility] [address] [place] [address] A[place] Color (U) YELLOW Normal YELLOW [facility] Comment on above: Performed By: #### U MICRO, DRUGRPD, ERUR #### [facility] [address] [place] [address] A[place] A[place] ERUAHD A micrscopic examination will be performed if indicated. Normal [facility] Comment on above: Performed By: #### U MICRO, DRUGRPD, ERUR #### [facility] [address] [place] [address] Akin A[place]ha Glucose [Mass/Vol] Negative Normal NEGATIVE [facility] Comment on above: Performed By: #### U MICRO, DRUGRPD, ERUR #### [facility] [address] [place] [address] A[place] A[place]ha Ketones Ql (U) Negative Normal NEGATIVE [facility] Comment on above: Performed By: #### U MICRO, DRUGRPD, ERUR #### [facility] [address] [place] [address] Akin Aysha Nitrite Ql (U) Negative Normal NEGATIVE [facility] [place] [facility] Comment on above: Performed By: #### U MICRO, DRUGRPD, ERUR #### [facility] [address] [place] [address] Akin Aysha pH (Bld) 5.5 Normal 5-9 [facility] Comment on above: Performed By: #### U MICRO, DRUGRPD, ERUR #### [facility] [address] [place] [address] A[place] Protein (U) [Mass/Vol] Negative Normal NEGATIVE/ TRACE [facility] Comment on above: Performed By: #### U MICRO, DRUGRPD, ERUR #### [facility] [address] [place] [address] [place] SPEC GRAVITY 1.025 Normal 1.005-<=1.025 [facility] Comment on above: Performed By: #### U MICRO, DRUGRPD, ERUR #### [facility] [address] [place] [address] [place] UR MICRO IND INDICATED Normal [facility] Comment on above: Performed By: #### U MICRO, DRUGRPD, ERUR #### [facility] [address] [place] [address] [place] Urobilinogen Qn (U) 0.2 EU/dl Normal 0.2 - 1.0 [facility] Comment on above: Performed By: #### U MICRO, DRUGRPD, ERUR #### [facility] [address] [place] [address] [place] WBC (Bld) [#/Vol] Negative Normal NEGATIVE [facility] Comment on above: Performed By: #### U MICRO, DRUGRPD, ERUR #### [facility] [address] [place] [address] [place] POINT OF CARE GLUCOSEon 03-11 Glucose [Mass/Vol] 111 mg/dL Critically high 74-106 [facility] Comment on above: Performed By: #### P OCGLUC #### [facility] [address] [place] [address] [place] URon 03-23-2020 , QUAL Negative Normal NEGATIVE [facility] Comment on above: Performed By: #### P REGU #### [facility] [address] [place] [address] [place] PROF 14(COMP METB)on 021 Albumin [Mass/Vol] 3.9 g/dL Normal 3.5-5.0 [facility] Comment on above: Performed By: #### C MP, HSTROPN #### [facility] [address] [place], [place] [address] A[place] Albumin/Globulin [Mass ratio] 1.0 {ratio} Normal [facility] Comment on above: Performed By: #### C CHRISTIAN, HSTROPN #### [facility] [address] [address] Akin Aysha ALP [Catalytic activity/Vol] 43 U/L Normal 38-126 [facility] Comment on above: Performed By: #### C CHRISTIAN, HSTROPN #### [facility] [address] [address] Akin [place]ha ALT [Catalytic activity/Vol] 29 U/L Normal 9-52 [facility] Comment on above: Performed By: #### C CHRISTIAN, HSTROPN #### [facility] [address] [place] [address] A[place] Anion gap [Moles/Vol] 13.1 mmol/L Normal [facility] Comment on above: Performed By: #### C CHRISTIAN, HSTROPN #### [facility] [address] [place] [address] A[place] AST [Catalytic activity/Vol] 20 U/L Normal 14-36 [facility] Comment on above: Performed By: #### C CHRISTIAN HSTROPN #### [facility] [address] [place] [address] A[place] A[place] Bilirubin Ql (U) 0.2 mg/dL Normal 0.2-1.3 [facility] [place] [facility] Comment on above: Performed By: #### C CHRISTIAN, HSTROPN #### [facility] [address] [place] [address] A[place] Calcium [Mass/Vol] 9.3 mg/dL Normal 8.4-10.2 [facility] Comment on above: Performed By: #### C CHRISTIAN, HSTROPN #### [facility] [address] [place] [address] A[place] Chloride [Moles/Vol] 105 mmol/L Normal 98-107 [facility] Comment on above: Performed By: #### C CHRISTIAN HSTROPN #### [facility] [address] [address] Akin A[place]ha CO2 [Moles/Vol] 24.4 mmol/L Normal 22.0-30.0 [facility] [place] [facility] Comment on above: Performed By: #### C CHRISTIAN, HSTROPN #### [facility] [address] [id number] Akin [place] Creatinine [Mass/Vol] 0.72 mg/dL Normal 0.52-1.04 [facility] Comment on above: Performed By: #### C CHRISTIAN, HSTROPN #### [facility] [address] [address] A[place] EGFR-AF MACANESE >60 Normal >=60 [facility] [place] [facility] Comment on above: Performed By: #### C CHRISTIAN, HSTROPN #### [facility] [address] [address] [place] EGFR-NON AF MACANESE >60 Normal >=60 [facility] Comment on above: Performed By: #### C CHRISTIAN, HSTROPN #### [facility] [address] [address] A[place] Globulin (S) [Mass/Vol] 3.8 g/dL Normal [facility] Comment on above: Performed By: #### C CHRISTIAN, HSTROPN #### [facility] [address] [address] Akin [place]ha Glucose [Mass/Vol] 91 mg/dL Normal 74-106 [facility] Comment on above: Performed By: #### C CHRISTIAN, HSTROPN #### [facility] [address] [address] Akin [place] Potassium [Moles/Vol] 3.5 mmol/L Normal 3.4-5.0 [facility] Comment on above: Performed By: #### C CHRISTIAN, HSTROPN #### [facility] [address] [address] A[place] Protein [Mass/Vol] 7.7 g/dL Normal 6.1-8.2 [facility] Comment on above: Performed By: #### C CHRISTIAN, HSTROPN #### [facility] [address] [id number] A[place] Sodium [Moles/Vol] 139 mmol/L Normal 137-145 [facility] Comment on above: Performed By: #### C CHRISTIAN, HSTROPN #### [facility] [address] [place] [address] Akin [place] Urea nitrogen [Mass/Vol] 15.0 mg/dL Normal 7.0-17.0 [facility] Comment on above: Performed By: #### C CHRISTIAN, HSTROPN #### [facility] [address] [place] [address] A[place] Urea nitrogen/Creatinine [Mass ratio] 20.8 mg/mg Normal [facility] Comment on above: Performed By: #### C CHRISTIAN, HSTROPN #### [facility] [address] [place] [address] A[place] TROPONIN, HIGH SENSITIVITYon 03-23-2020 HSTROP 4.0 pg/mL Normal 4.0-35.5 [facility] Comment on above: Result Comment: CUT- OFF POINTS HAVE BEEN ESTABLISHED BASED ON THE FOURTH UNIVERSAL DEFINITIONS OF MYOCARDIAL INFARCTION. THE UPPER REFERENCE LIMIT (URL) OF TROPONIN, DEFINED THE 99TH PERCENTILE OF cTnI DISTRIBUTION IN A REFERENCE POPULATION, HAS BEEN CONFIRMED THE DECISION THRESHOLD FOR NM DIAGNOSIS. Performed By: #### C CHRISTIAN, HSTROPN #### [facility] [address] [place] [address] Akin A[place]ha URINE MICROSCOPIC ONLYon Bacteria LM.HPF (Urine sed) [#/Area] MODERATE Abnormal NONE SEEN [facility] Comment on above: Performed By: #### I NFLUAB #### [facility] [address] [place], [place] [id number] A[place] CAST NONE SEEN Normal NONE SEEN [facility] Comment on above: Performed By: #### I NFLUAB #### [facility] [address] [place], [place] [address] A[place] Crystals LM Nom (Urine sed) NONE SEEN Normal NONE SEEN [facility] Comment on above: Performed By: #### I NFLUAB #### [facility] [address] [place], [place] [address] A[place] CULTURE INDICATED Normal [facility] Comment on above: Performed By: #### I NFLUAB #### [facility] [address] [place], [place] [address] A[place] Epithelial cells LM.HPF (Urine sed) [#/Area] FEW Abnormal NONE SEEN /RARE [facility] Comment on above: Performed By: #### I NFLUAB #### [facility] [address] [place], [place] [address] [place] MUCOUS NONE SEEN Normal NONE SEEN [facility] Comment on above: Performed By: #### I NFLUAB #### [facility] [address] [place] [address] A[place] RBC (U) [#/Vol] 0-2 Normal 0-2 [facility] Comment on above: Performed By: #### I NFLUAB #### [facility] [address] [place] [address] Akin [place] WBC (Bld) [#/Vol] 2-5 Abnormal NONE SEEN [facility] [place] Comment on above: Performed By: #### I NFLUAB #### [facility] [address] [place], [place] [address] A[place] CBC AUTO DIFFon 05-12-2019 Basophils (Bld) [#/Vol] 0.1 103/ul Normal 0.0-0.1 [facility] Comment on above: Performed By: #### C BC #### [facility] [address] [place] [address] A[place] Basophils/100 WBC (Bld) 0.7 % Normal 0.2-2.0 [facility] Comment on above: Performed By: #### C BC #### [facility] [address] [place], [place] [address] A[place] Eosinophils (Bld) [#/Vol] 0.2 103/ul Normal 0.0-0.7 [facility] Comment on above: Performed By: #### C BC #### [facility] [address] [place] [address] Akin Aysha Eosinophils/100 WBC (Bld) 1.6 % Normal 0.9-7.0 [facility] Comment on above: Performed By: #### C BC #### [facility] [address] [place], [place] [address] Akin Ays[place] Erythrocyte distribution width (RBC) [Ratio] 12.1 % Normal 11.0-15.0 [facility] Comment on above: Performed By: #### C BC #### [facility] [address] [place] [address] Akin Ays[place] Hematocrit (Bld) [Volume fraction] 42.5 % Normal 36.0-48.0 [facility] Comment on above: Performed By: #### C BC #### [facility] [address] [place] [address] A[place] Hemoglobin (Bld) [Mass/Vol] 14.5 g/dL Normal 12.0-16.0 [facility] [facility] Comment on above: Performed By: #### C BC #### [facility] [address] [place] [address] Akin Aysha IG # 0.03 10e3/ul Normal 0.00-0.03 [facility] Comment on above: Performed By: #### C BC #### [facility] [address] [place] [address] Akin Aysha IG % 0.3 % Normal 0.0-0.5 [facility] Comment on above: Performed By: #### C BC #### [facility] [address] [place], [place] [id number] Akin Aysha Lymphocytes (Bld) [#/Vol] 4.2 103/ul Critically high 1.2-3.8 [facility] Comment on above: Performed By: #### C BC #### [facility] [address] [place], [place] [id number] Akin Aysha Lymphocytes/100 WBC (Bld) 36.2 % Normal 20.5-60.0 [facility] Comment on above: Performed By: #### C BC #### [facility] [address] [place] [address] Akin [place] MANUAL DIFF REQ NO Normal [facility] Comment on above: Performed By: #### C BC #### [facility] [address] [place], [place] [id number] Akin Ol[place]stead MCH (RBC) [Entitic mass] 31.3 pg Normal 26.7-34.0 [facility] Comment on above: Performed By: #### C BC #### [facility] [address] [place], [place] [id number] Akin [place] MCHC (RBC) [Mass/Vol] 34.1 g/dL Normal 29.9-35.2 [facility] Comment on above: Performed By: #### C BC #### [facility] [address] [place] [address] Akin [place] MCV (RBC) [Entitic vol] 91.6 fL Normal 81.0-99.0 [facility] Comment on above: Performed By: #### C BC #### [facility] [address] [place] [address] Akin Aysha Monocytes (Bld) [#/Vol] 0.8 103/ul Normal 0.3-0.8 [facility] Comment on above: Performed By: #### C BC #### [facility] [address] [place] [address] Akin Ol[place] Monocytes/100 WBC (Bld) 7.2 % Normal 1.7-12.0 [facility] Comment on above: Performed By: #### C BC #### [facility] [address] [place] [address] Akin Aysha Neutrophils (Bld) [#/Vol] 6.2 103/ul Normal 1.4-6.5 [facility] Comment on above: Performed By: #### C BC #### [facility] [address] [place] [address] Akin Aysha Neutrophils/100 WBC (Bld) 54.0 % Normal 43.0-75.0 [facility] Comment on above: Performed By: #### C BC #### [facility] [address] [place] [address] Akinenio [place] Platelet mean volume (Bld) [Entitic vol] 8.7 fL Critically low 9.5-13.5 [facility] Comment on above: Performed By: #### C BC #### [facility] [address] [place] [address] Akinenio Olm[place] Platelets (Bld) [#/Vol] 333 103/ul Normal 150-450 [facility] Comment on above: Performed By: #### C BC #### [facility] [address] [place] [address] Akinenio Segundoen RBC (Bld) [#/Vol] 4.64 106/ul Normal 4.20-5.40 [facility] Comment on above: Performed By: #### C BC #### [facility] [address] [place] [address] Akinenio Olmstead WBC (Bld) [#/Vol] 11.5 103/ul Critically high 4.0-11.0 [facility] Comment on above: Performed By: #### C BC #### [facility] [address] [place] [address] Akin Aysha ER URINE PROFILEon 0 Bilirubin [Mass/Vol] Negative Normal NEGATIVE [facility] Comment on above: Performed By: #### I NFLUAB #### [facility] [address] [place] [address] Akin Aysha BLOOD Negative Normal NEGATIVE [facility] Comment on above: Performed By: #### I NFLUAB #### [facility] [address] [place] [address] Akin Aysha Clarity (U) CLOUDY Normal [facility] Comment on above: Performed By: #### I NFLUAB #### [facility] [address] [place] [address] Akin Aysha Color (U) LT. YELLOW Normal YELLOW [facility] Comment on above: Performed By: #### I NFLUAB #### [facility] [address] [place] [address] Akin Aysha ERUAHD A micrscopic examination will be performed if indicated. Normal [facility] Comment on above: Performed By: #### I NFLUAB #### [facility] [address] [id number] Akin Aysha Glucose [Mass/Vol] Negative Normal NEGATIVE [facility] Comment on above: Performed By: #### I NFLUAB #### [facility] [address] [place] [address] Akin Aysha Ketones Ql (U) Negative Normal NEGATIVE [facility] [place] [facility] Comment on above: Performed By: #### I NFLUAB #### [facility] [address] [address] Akin Aysha Nitrite Ql (U) Negative Normal NEGATIVE [facility] Comment on above: Performed By: #### I NFLUAB #### [facility] [address] [place] [address] Akin Aysha pH (Bld) 8.5 Normal 5-9 [facility] Comment on above: Performed By: #### I NFLUAB #### [facility] [address] [place] [address] Akin Aysha Protein (U) [Mass/Vol] Negative Normal [facility] Comment on above: Performed By: #### I NFLUAB #### [facility] [address] [place] [address] Akin Aysha SPEC GRAVITY 1.015 Normal 1.005-<=1.025 [facility] Comment on above: Performed By: #### I NFLUAB #### [facility] [address] [place] [address] Akin Aysha UR MICRO IND NOT INDICATED Normal [facility] Comment on above: Performed By: #### I NFLUAB #### [facility] [address] [place], [place] [id number] Akin Aysha Urobilinogen Qn (U) 0.2 EU/dl Normal [facility] Comment on above: Performed By: #### I NFLUAB #### [facility] [address] [place], [place] [address] Akin Aysha WBC (Bld) [#/Vol] Negative Normal NEGATIVE [facility] [place] Comment on above: Performed By: #### I NFLUAB #### [facility] [address] [place] [address] Akin Olmstead INFLUENZA A AND B AGon 05-11 INFLUANEGH SEE BELOW Normal [facility] Comment on above: Result Comment: Nega tive for Flu A protein angiten. Infection due to Flu A cannot be ruled out. Flu A angiten in the sample may be below the detection limit of the test. Performed By: #### I NFLUAB #### [facility] [address] [place] [address] Akin Olmstead INFLUBNEGH SEE BELOW Normal [facility] Comment on above: Result Comment: Nega tive for Flu B protein antigen. Infection due to Flu B cannot be ruled out. Flu B antigen in the sample may be below the detection limit of the test. Performed By: #### I NFLUAB #### [facility] [address] [place] [address] Akin Olmstead INFLUENZA A AG Negative Normal NEGATIVE SEE COMMENT [facility] Comment on above: Performed By: #### I NFLUAB #### [facility] [address] [place] [address] Akin [place] INFLUENZA B AG Negative Normal NEGATIVE SEE COMMENT [facility] Comment on above: Performed By: #### I NFLUAB #### [facility] [address] [place] [address] Akin Olmstead INTERNAL CONTROLS Within Normal Limits Normal Wi thin Normal Limits [facility] Comment on above: Performed By: #### I NFLUAB #### [facility] [address] [place] [address] Akin Olmstead LACTATE/LACTIC ACIDon 2019 Lactate [Moles/Vol] 0.8 mmol/L Normal 0.7-2.0 [facility] Comment on above: Performed By: #### I NFLUAB #### [facility] [address] [place] [address] Akin Olmstead PROF CHEM 8 (BAS METB)on Anion gap [Moles/Vol] 9.3 mmol/L Normal [facility] Comment on above: Performed By: #### B MP #### [facility] [address] [id number] Akin Aysha Calcium [Mass/Vol] 9.4 mg/dL Normal 8.4-10.2 [facility] Comment on above: Performed By: #### B MP #### [facility] [address] [id number] Akin Aysha Chloride [Moles/Vol] 105 mmol/L Normal 98-107 [facility] Comment on above: Performed By: #### B MP #### [facility] [address] [address] Akin Aysha CO2 [Moles/Vol] 28.3 mmol/L Normal 22.0-30.0 [facility] Comment on above: Performed By: #### B MP #### [facility] [address] [address] Akin Aysha Creatinine [Mass/Vol] 0.81 mg/dL Normal 0.52-1.04 [facility] Comment on above: Performed By: #### B MP #### [facility] [address] [id number] Akin Aysha EGFR-AF MACANESE >60 Normal >=60 [facility] [place] [facility] Comment on above: Performed By: #### B MP #### [facility] [address] [address] Akin Aysha EGFR-NON AF MACANESE >60 Normal >=60 [facility] Comment on above: Performed By: #### B MP #### [facility] [address] [address] Akin Aysha Glucose [Mass/Vol] 111 mg/dL Critically high 74-106 [facility] Comment on above: Performed By: #### B MP #### [facility] [address] [id number] Akin Aysha Potassium [Moles/Vol] 3.6 mmol/L Normal 3.4-5.0 [facility] Comment on above: Performed By: #### B MP #### [facility] [address] [place], [place] [address] Akin Olmstead Sodium [Moles/Vol] 139 mmol/L Normal 137-145 [facility] Comment on above: Performed By: #### B MP #### [facility] [address] [place], [place] [address] Akin Olmstead Urea nitrogen [Mass/Vol] 13.0 mg/dL Normal 7.0-17.0 [facility] Comment on above: Performed By: #### B MP #### [facility] [address] [place], [place] [address] Akin Olmstead Urea nitrogen/Creatinine [Mass ratio] 16.0 mg/mg Normal [facility] Comment on above: Performed By: #### B MP #### [facility] [address] [place], [place] [address] Akin Olmstead XR CHEST 2 Von 05-12-2019 [...] by: Mayra DEGROOT Date: 2019-05-11 23:24 Normal [facility] DNA Extraction and holdon DNA Extraction and hold SEE BELOW Normal [facility] Comment on above: Result Comment: SPEC IMEN: BLOOD DNA EXTRACTION AND HOLD SPECIMEN TYPE: EDTA Blood Date Received: 12/28/18 EXTRACTION: DNA extracted from 3.0ml EDTA blood Method: Gentra Puregene Reagents from [employer] ANALYSIS: DNA concentration: 571.4ng/ul Total volume DNA: 225ul (in TE buffer) DNA Purity 260/280 Ratio: 1.9 Total DNA yield: 128.6ug STORAGE AND SPECIAL INSTRUCTIONS: The extracted DNA is stored in the [facility] at -700C in the DS & EX 2019 box. Holding for future testing. Any questions regarding this sample, please contact [facility] at [phone]. VANESSA CUNHA 01/11/2019 Performed By: #### D ELIZABETH #### [facility]'[address] [address] SURGICAL PATHOLOGYon 019 SURGICAL PATHOLOGY Specimen #: [id number] Submitting Physician: ASHWINI SIMONS M.D. FINAL DIAGNOSIS Soft tissue, left posterior shoulder, excision - Lipoma with fat necrosis, see comment. HELENB/RS/rw 08/08/2018 COMMENT Many thanks for sending in consultation this case of a [id number] with a lesion on the left posterior [...] Please call the Dermatopathology Consultation Service at [phone] with questions or if additional follow-up information becomes available regarding this patient. This case was reviewed in conjunction with the Dermatopathology Fellow, Dr. Clements. Fam Wong M.D. (Electronic Signature) SPECIMEN SUBMITTED A: 12 SLIDES ([id number]: A-J) CLINICAL DATA None provided. Date of Report: 08/08/2018 Date of Procedure: 08/04/2018 Date of Receipt: 08/04/2018 Submitted by: ASHWINI SIMONS M.D. Location: Diagnostic interpretation performed at [facility] [place], [address] [place] [address] [place] [address]. CLIA Number: [id number] Normal [facility] [place] [facility] Comment on above: Performed By: #### S #### See report for performing lab information. Vital Signs Date Time Vital Sign Value Performing Clinician Maurice villegas 04-26-2024 13:07-0400 Body mass index (BMI) [Ratio] 29.17 kg/m2 Juan Violet DO Work Phone: [facility] 04-26-2024 13:07-0400 Body weight 70.03 kg Juan Violet DO Work Phone: [facility] 04-26-2024 13:07-0400 Diastolic blood pressure 74 mm[Hg] Juan Violet DO Work Phone: [facility] 04-26-2024 13:07-0400 Systolic blood pressure 112 mm[Hg] Juan Violet DO Work Phone: [facility] 03-30-2024 10:52-0500 Body mass index (BMI) [Ratio] 29.06 kg/m2 Roxy Vernon PA Work Phone: [facility] 03-30-2024 10:52-0500 Body weight 69.76 kg Roxy Vernon PA Work Phone: [facility] 03-30-2024 10:52-0500 Diastolic blood pressure 70 mm[Hg] Roxy Vernon PA Work Phone: [facility] 03-30-2024 10:52-0500 Systolic blood pressure 100 mm[Hg] Roxy Odessa PA Work Phone: [facility] 03-29-2024 10:29-0500 Body height 154.9 cm Haresh Huizar P[employer] [facility] 03-29-2024 10:29-0500 Body mass index (BMI) [Ratio] 28.72 kg/m2 Haresh Huizar P[employer] Work Phone: [facility] 03-29-2024 10:29-0500 Body weight 68.95 kg Haresh Huizar PVC LO[employer] Work Phone: [facility] 03-29-2024 10:29-0500 Diastolic blood pressure 74 mm[Hg] Haresh Huizar P[employer] Work Phone: [facility] 03-29-2024 10:29-0500 Heart rate 91 /min Haresh Huizar P[employer] Work Phone: [facility] 03-29-2024 10:29-0500 SaO2% (BldA) [Mass fraction] 98 % Haresh Huizar [employer] Work Phone: [facility] 03-29-2024 10:29-0500 Systolic blood pressure 110 mm[Hg] Haresh Perezhart P[employer] Work Phone: [facility] 08-18-2023 08:48-0400 Body height 152.4 cm Delon Pedersen MD Work Phone: [facility] 08-18-2023 08:48-0400 Body mass index (BMI) [Ratio] 29.29 kg/m2 Delon Pedersen MD Work Phone: [facility] 08-18-2023 08:48-0400 Body weight 68.04 kg Delon Pedersen MD Work Phone: [facility] 08-18-2023 08:48-0400 Diastolic blood pressure 80 mm[Hg] Delon Pedersen MD Work Phone: [facility] 08-18-2023 08:48-0400 Heart rate 78 /min Delon Pedersen MD Work Phone: [facility] 08-18-2023 08:48-0400 SaO2% (BldA) [Mass fraction] 97 % Delon Pedersen MD Work Phone: [facility] 08-18-2023 08:48-0400 Systolic blood pressure 112 mm[Hg] Delon Pedersen MD Work Phone: [facility] 04-15-2023 12:35-0500 Body height 152.4 cm Rhea Moreno [employer] Work Phone: [employer] 04-15-2023 12:35-0500 Body mass index (BMI) [Ratio] 29.02 kg/m2 Rhea Moreno APRN[employer] PAR[employer]ESSIONAL [facility] 04-15-2023 12:35-0500 Body weight 67.41 kg Rhea Moreno APRN[employer] Work Phone: [employer] 04-15-2023 12:35-0500 Diastolic blood pressure 70 mm[Hg] Rhea Moreno APRN[employer]ESSIONAL Work Phone: [employer] 04-15-2023 12:35-0500 Heart rate 80 /min Rhea Moreno APRN[employer]ESSIONAL Work Phone: [employer] 04-15-2023 12:35-0500 SaO2% (BldA) [Mass fraction] 97 % Rhea Moreno APRNNIKHIL Work Phone: [employer] 04-15-2023 12:35-0500 Systolic blood pressure 116 mm[Hg] Rhea Cuevas PVC LOADERNIKHIL Work Phone: [employer] Encounters Encounter Date Encounter Type Care Provider Facility Start: 04-26-2024 End: 04-26-2024 Office outpatient visit 15 minutes Juan Violet DO Work Phone: [facility] Comment on above: Pre-op evaluation; Pelvic pain in female; History of ovarian cyst; Left lower quadrant pain; Abnormal uterine bleeding (AUB) Start: 04-26-2024 End: 04-26-2024 Preprocedural examination done Juan Violet DO Work Phone: [facility] Start: 04-26-2024 End: 04-26-2024 ambulatory JUAN VIOLET Not Available Start: 04-19-2024 End: 04-19-2024 ambulatory ROXY JUNIOR Not Available Start: 03-30-2024 End: 03-30-2024 Bamboo flowsheet Roxy Junior PA Work Phone: [facility] Start: 03-30-2024 End: 03-30-2024 Bamboo flowsheet Roxy RUIZ Work Phone: [facility] Start: 03-30-2024 End: 03-30-2024 ambulatory ROXY JUNIOR Not Available Start: 03-30-2024 End: 03-30-2024 Office outpatient visit 15 minutes Roxy RUIZ Work Phone: [facility] Comment on above: Pelvic pain in femal e Start: 03-29-2024 End: 03-29-2024 Office outpatient visit 15 minutes [facility] PVC LO[employer]ER[employer]ESSIONAL Work Phone: [facility] Comment on above: Paroxysmal atrial fi brillation (CMS-HCC) (Primary Dx); Atrial flutter, unspecified type (CMS-HCC) Start: 03-29-2024 End: 03-29-2024 ambulatory [facility] Start: 03-28-2024 End: 03-28-2024 Telephone encounter Keily Wu [facility] Start: 03-27-2024 ambulatory Lashell HUGHES Facil ity:[facility] Start: 03-23-2024 End: 03-23-2024 Office outpatient visit 15 minutes Roxy RUIZ Work Phone: [facility] Comment on above: Pelvic pain in femal e Start: 03-23-2024 End: 03-23-2024 ambulatory ROXY JUNIOR Not Available Start: 03-23-2024 End: 03-23-2024 Bamboo flowsheet Roxy RUIZ Work Phone: [facility] Start: 03-23-2024 End: 03-24-2024 Bamboo flowsheet Roxy RUIZ Work Phone: [facility] Start: 03-23-2024 End: 03-23-2024 Clinisync Result Encounter Roxy RUIZ Work Phone: [facility] External Department Unsolicited Start: 03-23-2024 End: 03-24-2024 External Result Encounter Roxy Odessa PA Work Phone: [facility] External Department Unsolicited Start: 03-06-2024 End: 03-07-2024 Telephone encounter Shelli Mccann [facility] Comment on above: Tachy events on loop recorder Start: 01-20-2024 End: 01-20-2024 Bamboo flowsheet Roxy Junior PA Work Phone: [facility] Start: 01-20-2024 End: 01-20-2024 Bamboo flowsheet Roxy Junior PA Work Phone: [facility] Start: 01-20-2024 End: 01-20-2024 Office outpatient visit 15 minutes Roxy Junior PA Work Phone: [facility] Comment on above: Left lower quadrant pain; Follow-up exam; History of ovarian cyst Start: 01-20-2024 End: 01-20-2024 ambulatory ROXY JUNIOR Not Available Start: 11-29-2023 End: 11-29-2023 Emergency department patient visit [facility] Start: 09-03-2023 End: 09-03-2023 Telephone encounter Nallely Serrano RN [facility] Comment on above: s/p ILR removal Start: 08-18-2023 End: 08-18-2023 Telephone encounter Ally Anne LPN [facility] Comment on above: EP Surgery ( PT Educ ation) EP Surgery (ILR repl acement) Start: 08-18-2023 End: 08-18-2023 Office outpatient visit 15 minutes Delon Pedersen MD Work Phone: [facility] Comment on above: Atrial flutter, unsp ecified type (CMS-HCC) (Primary Dx) Start: 08-18-2023 End: 08-18-2023 ambulatory DELON PEDERSEN [facility] Start: 08-17-2023 Telephone encounter Keily Wu CMA [facility] Start: 06-16-2023 End: 06-16-2023 ambulatory JUAN LAZO Not Available Start: 06-11-2023 End: 07-02-2023 Telephone encounter José Miguel Clemons RN [facility] Comment on above: Loop (Loop at EOS) Start: 05-31-2023 End: 06-01-2023 Refill Mi Mayra [employer] Work Phone: [facility] Comment on above: Med Refill Start: 05-12-2023 End: 05-12-2023 ambulatory ROXY JUNIOR Not Available Start: 04-30-2023 End: 04-30-2023 ambulatory Juan Violet Facility:[facility] Start: 04-30-2023 End: 04-30-2023 ambulatory Juan Violet Work Phone: [facility] Work Phone: Start: 04-30-2023 End: 04-30-2023 Departed Referred Juan Violet Work Phone: [facility] Start: 04-15-2023 End: 04-15-2023 ambulatory [facility] Start: 04-15-2023 Encounter for other preprocedural examination [facility] Start: 04-15-2023 Telephone encounter Rhea Perez RN [facility] Comment on above: Surgical Or Dental C learance Start: 04-15-2023 End: 04-15-2023 Office outpatient visit 15 minutes Rhea [facility] PVC LO[employer]ER[employer] PAR[employer]ESSIONAL Work Phone: [facility] Comment on above: Preop examination (P rimary Dx); Paroxysmal atrial fibrillation (CMS-HCC); Near syncope; Atrial flutter, unspecified type (CMS-HCC) Start: 04-15-2023 End: 04-15-2023 Preprocedural examination done [facility] PVC LOADER[employer] PAR[employer]ESSIONAL Work Phone: [facility] Start: 04-07-2023 End: 04-07-2023 ambulatory Juan Violet Facility:[facility] Start: 04-07-2023 End: 04-07-2023 Departed Referred Juan Violet Work Phone: [facility] Start: 07-15-2022 End: 07-15-2022 ambulatory Trevon Pruitt Facility:[facility] Start: 07-15-2022 End: 07-15-2022 ambulatory MD Trevon Pruitt Work Phone: [facility] Work Phone: Start: 07-15-2022 End: 07-15-2022 Departed Referred MD Trevon Pruitt Work Phone: [facility] Start: 07-09-2022 Patient encounter status Rhea Acostakimberly P[employer] Work Phone: [employer] Work Phone: Start: 03-23-2020 End: 03-23-2020 Patient encounter procedure ADILIA PEREZ Facility:[facility] Start: 05-11-2019 End: 05-12-2019 Patient encounter procedure DELON DE LA CRUZ Facility: Procedures Date Procedure Procedure Detail Performing Clinician Start: 03-29-2024 Ecg routine ecg w/le ast 12 lds w/i&r Haresh Huizar [employer] Work Phone: Start: 03-23-2024 RECURRENT VAGINITIS (HTRX) Roxy RUIZ Work Phone: Start: 03-23-2024 ALL CBC WITH AUTO DIFF Roxy RUIZ Work Phone: Start: 08-18-2023 Follow-up visit Follow-up DELON PEDERSEN Start: 06-16-2023 Microscopic observat ion [Identifier] in Cervix by Cyto stain Delon Pedersen MD Work Phone: Start: 04-15-2023 Ecg routine ecg w/le ast 12 lds w/i&r Rhea Moreno [employer] Work Phone: Start: 05-12-2019 End: 05-12-2019 Microscopic examination of blood, culture DELON DE LA CRUZ Comment on above: Performed By: #### I NFLUAB #### [facility] [address] [place] [address] Akin Olmstead Plan of Treatment Date Care Activity Detail Author Start: 06-15-2026 Screening for malign ant neoplasm of cervix Pap Smear [facility] Start: 09-26-2025 Tobacco Counseling Tobacco Counselin g [facility] Start: 03-29-2025 Adult BMI Screening Adult BMI Screen ing [facility] Start: 03-29-2025 Tobacco Screening Tobacco Screening [facility] Start: 11-28-2024 Tobacco Screening Tobacco Screening [facility] Start: 10-04-2024 End: 10-04-2024 Patient encounter procedure 10/04/2024 8:00 AM EDT Office Visit [facility] [address] [place] [address] Delon Pedersen MD [address] [place] [address] [facility] Start: 09-01-2024 Adult BMI Screening Adult BMI Screen ing [facility] Start: 09-01-2024 Tobacco Screening Tobacco Screening [facility] Start: 07-05-2024 End: 07-05-2024 Patient encounter procedure 07/05/2024 11:00 AM EDT Office Visit [facility] [address] [place] [address] Juan Lazo, DO [address], [facility] Start: 06-21-2024 End: 06-21-2024 Patient encounter procedure 06/21/2024 11:00 AM EDT Office Visit [facility] [address] [place] [address] Juan Lazo, DO [address], [place] [id number] [facility] Start: 04-19-2024 End: 04-19-2024 Professional / ancillary services management 04/19/2024 9:30 AM EDT Ancillary Procedure [facility] [address] [place] [address] [facility] Start: 04-14-2024 Adult BMI Screening Adult BMI Screen ing [facility] Start: 04-14-2024 Tobacco Screening Tobacco Screening [facility] Start: 03-30-2024 End: 03-30-2024 Patient encounter procedure 03/30/2024 10:20 AM EST Office Visit [facility] [address] [place] [id number] Roxy Junior PA [address] [facility] [place] [address] [facility] Start: 03-29-2024 End: 03-29-2024 Patient encounter procedure 03/29/2024 10:30 AM EST Office Visit [facility] [address] [address] Haresh Huizar, PVC LOADER-[employer]ATIONS PARAPROFESSIONAL [address] [place] [address] [facility] Start: 01-20-2024 End: 01-19-2025 US for US PELVIS-TRANSVAG IF INDICATED Imaging Routine History of ovarian cyst Expected: 01/20/2024 (Approximate), Expires: 01/19/2025 [facility] Work Phone: Comment on above: Expected: 01/20/2024 (Approximate), Expires: 01/19/2025 Start: 01-20-2024 End: 01-20-2024 Patient encounter procedure 01/20/2024 9:10 AM EST Office Visit [facility] [address] [place] [phone] Roxy Junior PA [address] [facility] [address] [place], [place] [id number] Arrived [facility] Comment on above: Arrived Start: 10-10-2023 Influenza vaccination Influenza Vacc ine [facility] Start: 08-18-2023 End: 08-18-2023 Patient encounter procedure 08/18/2023 8:45 AM EDT Office Visit [facility] [address] [place] [address] Delon Pedersen MD [address] [place] [address] [facility] Start: 10-09-2022 Influenza vaccination Influenza Vacc ine [facility] Start: 10-05-2022 DTaP,Tdap and Td Vaccines (7 - Td or Tdap) DTaP,Tdap and Td Vaccines (7 - Td or Tdap) [facility] Start: 2008 Screening for malign ant neoplasm of cervix Pap Smear [facility] Start: 2005 Adult BMI Follow Up Plan Adult BMI Follow Up Plan [facility] Start: 1999 Depression Screening Depression Scre ening [facility] Start: 1987 Tobacco Counseling Tobacco Counselin g [facility] Bacteria identified in Urine by Culture Urine culture Microbiology Routine Pelvic pain in female Ordered: 03/23/2024 [facility] Comment on above: Ordered: 03/23/2024 CBC W Auto Different ial panel - Blood CBC and differential Lab Routine Pelvic pain in female Ordered: 03/23/2024 [facility] Work Phone: Comment on above: Ordered: 03/23/2024 CHLAMYDIA TRACHOMATI S (GENITO/STI) CHLAMYDIA TRACHOMATIS (GENITO/STI) Lab Routine Pelvic pain in female Ordered: 03/23/2024 [facility] Comment on above: Ordered: 03/23/2024 Neisseria gonorrhoea e DNA [Presence] in Unspecified specimen by IAM with probe detection Neisseria gonorrhea DNA probe, direct Lab Routine Pelvic pain in female Ordered: 03/23/2024 [facility] Comment on above: Ordered: 03/23/2024 SURESWAB(R) ADVANCED VAGINITIS PLUS, TMA SURESWAB(R) ADVANCED VAGINITIS PLUS, TMA Pathology and Cytology Routine Pelvic pain in female Ordered: 03/23/2024 [facility] Comment on above: Ordered: 03/23/2024 Payers Date Payer Category Payer Self-pay 2021 Worker's Compensation WORKER'S C OMPENSATION WORKER'S [id number] 2021-Present [address] [id number] [id number] 2017 Medicaid (Managed Care) [employer] [id number] 2002 Medicaid [employer] [employer] [id number] 2002-Present [phone] [place] [phone] [id number] 2002 Medicaid [place] [employer] [employer] [id number] 1987 Unknown [id number] [id number] .593 1987 Unknown [id number] 2.16.840.1.643022.3.579.2 .593 1987 Unknown [id number] 2.16.840.1.582990.3.579.2 .1286 1987 Unknown [id number] 2.16.840.1.892743.3.579.2 .1286 1987 Unknown [id number] 2.16.840.1.656583.3.579.2 .1286 1987 Unknown [id number] 2.16.840.1.043773.3.579.2 .1286 1987 Unknown [id number] 2.16.840.1.035279.3.579.2 .718 1987 Unknown [id number] 2.16.840.1.083340.3.579.2 .1259 1987 Unknown [id number] 2.16.840.1.371381.3.579.2 .9 1987 Unknown [id number] 2.16.840.1.360609.3.579.2 .1259 1987 Unknown [id number] 2.16.840.1.883388.3.579.2 .9 1987 Unknown [id number] 2.16.840.1.527202.3.579.2 .1259 1987 Unknown [id number] 2.16.840.1.052439.3.579.2 .9 1987 Unknown [id number] [id number] .1259 1959 Unknown [id number] Social History Date Type Detail Facility Tobacco smoking stat [facility] Unknown if ever smoked [facility] Work Phone: Start: 1985 Sex Assigned At Female F [facility] Start: 04-03-2010 End: 08-18-2023 Tobacco smoking status PAIS Smokes tobacco daily [facility] Start: 04-03-2010 End: 04-03-2020 History of tobacco use Cigarette Smoker [facility] Start: 01-20-2024 End: 04-26-2024 Alcoholic beverage intake Lifetime non-drinker (finding) [facility] Start: 02-10-2023 End: 05-12-2023 History of Social function [facility] Start: 02-10-2023 End: 05-12-2023 Tobacco use panel [facility] Start: 02-10-2023 Alcohol Comment caffeine: 1-2 cups per day [facility] Start: 1985 Sex assigned at Not on file P [facility] Start: 10-29-2022 End: 08-18-2023 Tobacco use and exposure Smokeless tobacco non-user [facility] Start: 11-29-2023 End: 03-29-2024 Alcoholic beverage intake Current non-drinker of alcohol (finding) [facility] Childcare Unknown [facility] Start: 09-13-2014 Sex Female (finding) [facility] Medical Equipment Procedure Code Equipment Code Equipment Origin al Text Equipment Identifier Dates Lux -Dx Ii + Icm - [id number] Start: 09-02-2023 Lux-Dx-06/05/2020 [id number] Start: 06-05-2020 Clinical Notes 04-15-2023 to 04-26-2024 Aysha Aguilar, ASSOCIATE TEACHER - 04/26/2024 1:00 PM JOSEPH Mancini - 03/30/2024 10:20 AM ESTSalejandra Huizar, ANETTE[employer]ATIONS PARAPROFESSIONAL - 03/29/2024 10:30 AM ESTTelephone Encounter - Keily Wu CMA - 03/28/2024 1:56 PM EST Note Date & Type Note Facility 04-26-2024 History of Presen t illness Narrative Reason for Appointment: Patient ID: Scott Hooker is a 39 y.o. female who presents for No chief complaint on file. Patient presents today for Pre Op appointment. Patient is scheduled to undergo Diagnostic Laparoscopy, possible ANGEL, possible FOE, possible BSO on 05/12/[address] Lazo at [facility]. MEDICATIONS Current Outpatient Medications Medication Instructions acetaminophen (Tylenol) 160 MG/5ML liquid apixaban (Eliquis) 5 MG tablet TAKE ONE TABLET BY MOUTH EVERY MORNING AND BEFORE BEDTIME cetirizine (ZyrTEC) 10 MG tablet metoprolol succinate XL (TOPROL-XL) 25 mg, Daily RT traMADol (ULTRAM) 50 mg, Every 6 hours PRN ALLERGIES Allergies Allergen Reactions Sulfamethoxazole Rash Trimethoprim Rash PROBLEMS Active Ambulatory Problems Diagnosis Date Noted No Active Ambulatory Problems Resolved Ambulatory Problems Diagnosis Date Noted No Resolved Ambulatory Problems Past Medical History: Diagnosis Date Anxiety with depression Left serous otitis media, unspecified chronicity Stroke [facility] 2020 HISTORY PAST MEDICAL HISTORY SOCIAL HISTORY Past Medical History: Diagnosis Date Anxiety with depression anxiety/depression Left serous otitis media, unspecified chronicity Stroke ([facility]) 2020 Social History Tobacco Use Smoking status: [...] Eyes: Negative. Respiratory: Negative. Cardiovascular: Negative. Gastrointestinal: Negative. Genitourinary: Positive for pelvic pain. Musculoskeletal: Negative. Skin: Negative. Neurological: Negative. All other systems reviewed and are negative. Hematological: Negative. Endocrine: Negative. Allergic/Immunologic: Negative. OBJECTIVE Objective: Physical Exam Constitutional: Appearance: Normal appearance. She is well-developed. Cardiovascular: Rate and Rhythm: Normal rate and regular rhythm. Pulmonary: Effort: Pulmonary effort is normal. Breath sounds: Normal breath sounds. Abdominal: General: Bowel sounds are normal. There is no distension. Palpations: Abdomen is soft. Tenderness: There is no abdominal tenderness. There is no guarding or rebound. Musculoskeletal: General: No swelling. Normal range of motion. Right lower leg: No edema. Left lower leg: No edema. Neurological: Mental Status: She is alert and oriented to person, place, and time. Skin: General: Skin is warm and dry. Psychiatric: Mood and Affect: Mood normal. Behavior: Behavior normal. Vitals and nursing note reviewed. Exam conducted with a bin cleaner present. Vitals: Estimated body mass index is 29.17 kg/m as calculated from the following: Height as of 12/25/19: 5' 1 . Weight as of this encounter: 154 lb 6.4 oz. BP: 112/74 No LMP recorded. Patient has had an ablation. ASSESSMENT & PLAN ICD-10-CM 1. Pre-op evaluation Z01.818 2. Pelvic pain in female R10.2 3. History of ovarian cyst Z87.42 4. Left lower quadrant pain R10.32 5. Abnormal uterine bleeding (AUB) N93.9 Pre Op: Patient is doing well but has complaints of pelvic pain. I have discussed conservative management vs. surgical management with the patient in detail and patient desires surgical management at this time. Patient will undergo Diagnostic Laparoscopy, possible ANGEL, possible FOE, possible BSO on 05/12/2024. Surgical consents were signed, mmc was reviewed, and patient is to proceed to [facility] OR. Follow Up: Patient is to follow up between 1-2 weeks post operative to assess proper healing and recovery from procedure. Documented by Aysha Aguilar LPN on behalf of: Juan Lazo DO documented in this encounter [facility] 03-30-2024 History of Presen t illness Narrative Reason for Appointment: Patient ID: Scott Hooker is a 39 y.o. female who presents for Pelvic Pain Patient presents today for Medication Follow Up appointment. MEDICATIONS Current Outpatient Medications Medication Instructions acetaminophen (Tylenol) 160 MG/5ML liquid apixaban (Eliquis) 5 MG tablet TAKE ONE TABLET BY MOUTH EVERY MORNING AND BEFORE BEDTIME cetirizine (ZyrTEC) 10 MG tablet ciprofloxacin (CIPRO) 500 mg, Oral, 2 times daily metoprolol succinate XL (TOPROL-XL) 25 mg, Daily RT traMADol (ULTRAM) 50 mg, Every 6 hours PRN ALLERGIES Allergies Allergen Reactions Sulfamethoxazole Rash Trimethoprim Rash PROBLEMS Active Ambulatory Problems Diagnosis Date Noted No Active Ambulatory Problems Resolved Ambulatory Problems Diagnosis Date Noted No Resolved Ambulatory Problems Past Medical History: Diagnosis Date Anxiety with depression Left serous otitis media, unspecified chronicity Stroke ([facility]) 2020 HISTORY PAST MEDICAL HISTORY SOCIAL HISTORY Past Medical History: Diagnosis Date Anxiety with depression anxiety/depression Left serous otitis media, unspecified chronicity Stroke ([facility]) 2020 Social History Tobacco Use Smoking status: [...] Eyes: Negative. Respiratory: Negative. Cardiovascular: Negative. Gastrointestinal: Negative. Genitourinary: Negative. Musculoskeletal: Negative. Skin: Negative. Neurological: Negative. All other systems reviewed and are negative. Hematological: Negative. Endocrine: Negative. Allergic/Immunologic: Negative. OBJECTIVE Objective: Physical Exam Constitutional: Appearance: Normal appearance. She is normal weight. HENT: Head: Normocephalic. Cardiovascular: Rate and Rhythm: Normal rate. Pulses: Normal pulses. Pulmonary: Effort: Pulmonary effort is normal. Breath sounds: Normal breath sounds. Abdominal: Palpations: Abdomen is soft. Musculoskeletal: General: Normal range of motion. Neurological: General: No focal deficit present. Mental Status: She is alert and oriented to person, place, and time. Psychiatric: Mood and Affect: Mood normal. Behavior: Behavior normal. Thought Content: Thought content normal. Judgment: Judgment normal. Vitals and nursing note reviewed. Vitals: Estimated body mass index is 29.06 kg/m as calculated from the following: Height as of 12/25/19: 5' 1 . Weight as of this encounter: 153 lb 12.8 oz. BP: 100/70 No LMP recorded. Patient has had an ablation. ASSESSMENT & PLAN ICD-10-CM 1. Pelvic pain in female R10.2 Patient presents today for left lower pelvic pain. Patient was seen last week and placed on tramadol for her pain post er visit. CT scan and results were reviewed at that time. Patient presents today for follow up and doing much better. 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 Patient has a follow up US in april to evaluate ovarian cysts. Patient like to have diagnostic lap to evaulate endometriosis or possible scarring. Patient be put on schedule and come in for pre op appointment Previous surgeries include D&C and bilateral saplpingectomy with endomertrial gale ablation of uterus in 04/2023 Documented by JOSEPH Welsh on behalf of: JOSEPH Welsh documented in this encounter [facility] 03-29-2024 History of Presen t illness Narrative Scott Hooker Date of visit: 03/29/2024 Date of : 1985 Age: 39 y.o. Patient Active Problem List Diagnosis Near syncope SOB (shortness of breath) Mass of subcutaneous tissue of back Lipoma of back Pyelonephritis Atrial flutter (CMS-HCC) Paroxysmal atrial fibrillation (CMS-HCC) Status post placement of implantable loop recorder - [place] Preop cardiovascular exam No Known Allergies Current Outpatient Medications Medication Sig Dispense Refill ciprofloxacin HCl (CIPRO) 500 mg tablet Take 1 tablet (500 mg total) by mouth in the morning and 1 tablet (500 mg total) before bedtime. traMADoL (ULTRAM) 50 mg tablet Take 1 tablet (50 mg total) by mouth every 6 (six) hours as needed for pain. apixaban (ELIQUIS) 5 mg tablet TAKE 1 TABLET BY MOUTH TWICE A DAY (MORNING AND BEFORE BEDTIME) 90 tablet 3 metoprolol succinate XL (TOPROL XL) 25 mg 24 hr tablet Take 1 tablet (25 mg total) by mouth in the morning. 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 Works - [employer]. Baseline functional capacity - very active at work, able to take stairs in home without chest discomfort or dyspnea. Currently being worked up for abdominal cramps that started last week, concern for infection vs. endometriosis. Denies any chest discomfort, dyspnea, pre-syncope, syncope. Does endorse palpitations and heart racing when out of rhythm. Patient endorses she is usually not doing anything active when AF/AFL occurs. Patient drinks 1 starbucks coffee per day. Denies ETOH use. + snores when sleeps but denies apnea. Family history of both grandmothers, paternal grandfather, and dad all with AF. Smokes < 1ppd currently, smoking for 15-20 years. Past Medical History: Diagnosis Date Anxiety Atrial fibrillation ([facility]) Dental disease lower dentures Depression Endometriosis Leaky heart valve Low blood pressure Near syncope Seasonal allergies Stroke ([facility]) 03/27/2020 TIA TIA (transient ischemic attack) Visual impairment glasses No data recorded No data recorded No data recorded Past Surgical History: Procedure Laterality Date DILATION AND CURETTAGE OF UTERUS 05/2017 EXCISION LIPOMA Left 07/27/2018 Performed by Stan Dee MD at [facility] ILR Removal with Fluoro and Replacement-BSI N/A 09/02/2023 Performed by Delon Pedersen MD at [facility] () OVARIAN CYST REMOVAL 04/2018 Family History Problem [...] Last attempt to quit: 04/03/2020 Years since quittin.9 Smokeless tobacco: Never Vaping Use Vaping status: Never Used Substance and Sexual Activity Alcohol use: No Drug use: Not Currently Sexual activity: Yes Partners: Male control/protection: Inserts Other Topics Concern Caffeine Use Yes Social History Narrative Not on file Social Drivers of Health Financial Resource Strain: Not on file Food Insecurity: No Food Insecurity (11/29/2023) Hunger Screening Food Insecurity - Worry: Never True Food Insecurity - Inability: Never True Transportation Needs: Not on file Physical Activity: Not on file Stress: Not on file Social Connections: Not on file Interpersonal Safety: Not on file Housing Instability: Not on file Review of Systems Review of Systems Constitutional: Positive for malaise/fatigue. Negative for decreased appetite. HENT: Negative for nosebleeds. Respiratory: Negative for cough, shortness of breath and wheezing. Hematologic/Lymphatic: Does not bruise/bleed easily. Musculoskeletal: Negative for joint pain, joint swelling, muscle cramps and muscle weakness. Gastrointestinal: Positive for bloating, abdominal pain and nausea. Negative for heartburn and vomiting. Neurological: Negative for dizziness, headaches, light-headedness and loss of balance. Psychiatric/Behavioral: Negative for depression. The patient is not nervous/anxious. CARDIOVASCULAR: Please review HPI. Physical Examination General appearance: Alert, oriented and cooperative. In no acute distress. Respiratory: Clear to auscultation bilaterally, no use of accessory muscles. Cardiovascular: RRR with normal S1 and S2 with no murmurs. Gastrointestinal: Soft, non-tender. Bowel sounds normal. Extremities: warm and dry, no BLE edema VITAL SIGNS: BP 110/74 Pulse 91 Ht 154.9 cm (5' 1 ) Wt 68.9 kg (152 lb) SpO2 98% BMI 28.72 kg/m Orders Placed or Reconciled This Encounter Medications ciprofloxacin HCl (CIPRO) 500 mg tablet Sig: Take 1 tablet (500 mg total) by mouth in the morning and 1 tablet (500 mg total) before bedtime. traMADoL (ULTRAM) 50 mg tablet Sig: Take 1 tablet (50 mg total) by mouth every 6 (six) hours as needed for pain. metoprolol succinate XL (TOPROL XL) 25 mg 24 hr tablet Sig: Take 1 tablet (25 mg total) by mouth in the morning. Dispense: 90 tablet Refill: 3 apixaban (ELIQUIS) 5 mg tablet Sig: TAKE 1 TABLET BY MOUTH TWICE A DAY (MORNING AND BEFORE BEDTIME) Dispense: 90 tablet Refill: 3 Medications Discontinued During This Encounter Medication Reason apixaban (ELIQUIS) 5 mg tablet Reorder metoprolol succinate XL (TOPROL XL) 25 mg 24 hr tablet Reorder [id number] Score: 3 3.2% Stroke risk per year, 4.6% risk of stroke/TIA/systemic embolism IMPRESSIONS/PLAN 1. Paroxysmal atrial fibrillation (CMS-HCC) - POCT EKG 2. Atrial flutter, unspecified type (CMS-HCC) - apixaban (ELIQUIS) 5 mg tablet; TAKE 1 TABLET BY MOUTH TWICE A DAY (MORNING AND BEFORE BEDTIME) Dispense: 90 tablet; Refill: 3 Paroxysmal atrial fibrillation /flutter CHADS2 Vasc 3 S/p BSI ILR 05/28/2020, ILR extraction with BSI ILR reimplantation 09/02/2023 PACs Renal infarct 04/02/2020 thought to be 2/2 cardioembolic Preserved LV TTE 03/2020 showed LVEF 55-60%, trace MR, trace TR Tobacco use Abdominal discomfort x1 week - actively being worked up Overall, patient is doing well. EKG in office shows sinus rhythm at 91 beats per minute ILR shows episodes of AF 01/28/2025 for 25 seconds in 01/19/2025 for 28 minutes She does endorse concern for increasing frequency of PAF/AFL with reported increased symptoms of heart racing, palpitations. Additionally, patient does not want to remain on medications for her lifetime as she is young. Discussed ILR continues to show minimal AF burden and having an ablation does not guarantee she will be able to come off of medications; however, will arrange for six-month follow up with Dr. Pedersen to discuss. Patient is agreeable to plan of care. For now, continue current rate/ rhythm management with Toprol 25 mg daily, systemic anticoagulation with Eliquis 5 mg twice daily. Patient was seen by Danyell Keita CNP. Agree with her assessment and plan. Patient was seen when Dr. Delvalle was present and immediately available in office suite. TODAYS ORDERS Orders Placed This Encounter Procedures POCT EKG FOLLOW UP Return in about 6 months (around 09/26/2024). PCP: OLMAN DURAN Referring Physician: OLMAN Duran [address] [place] [address] OLMAN Darby 03/29/24 1151 documented in this encounter [facility] 03-28-2024 Miscellaneous Notes ATTEMPTED TO CALL PT TO REMIND OF APPT SCHEDUELD FOR 03/29/2024, NO VOICE MAIL SET UP OR VOICE MAIL FULL. documented in this encounter [facility] 03-28-2024 Telephone encounter Note ATTEMPTED TO CALL PT TO REMIND OF APPT SCHEDUELD FOR 03/29/2024, NO VOICE MAIL SET UP OR VOICE MAIL FULL. [facility] 03-23-2024 History of Presen t illness Narrative Reason for Appointment: Patient ID: Scott Hooker is a 39 y.o. female who presents for Pelvic Pain Patient presents today for Consult appointment. MEDICATIONS Current Outpatient Medications Medication Instructions acetaminophen (Tylenol) 160 MG/5ML liquid apixaban (Eliquis) 5 MG tablet TAKE ONE TABLET BY MOUTH EVERY MORNING AND BEFORE BEDTIME cetirizine (ZyrTEC) 10 MG tablet ciprofloxacin (CIPRO) 500 mg, Oral, 2 times daily metoprolol succinate XL (TOPROL-XL) 25 mg, Oral, Daily RT Mirena (52 MG) 52 mg ALLERGIES Allergies Allergen Reactions Sulfamethoxazole Rash Trimethoprim Rash PROBLEMS Active Ambulatory Problems Diagnosis Date Noted No Active Ambulatory Problems Resolved Ambulatory Problems Diagnosis Date Noted No Resolved Ambulatory Problems Past Medical History: Diagnosis Date Anxiety with depression Left serous otitis media, unspecified chronicity Stroke ([facility]) 2020 HISTORY PAST MEDICAL HISTORY SOCIAL HISTORY Past Medical History: Diagnosis Date Anxiety with depression anxiety/depression Left serous otitis media, unspecified chronicity Stroke ([facility]) 2020 Social History Tobacco Use Smoking status: [...] Cardiovascular: Negative. Gastrointestinal: Positive for abdominal pain. Genitourinary: Negative. Musculoskeletal: Negative. Skin: Negative. Neurological: [...] is soft. Tenderness: There is abdominal tenderness. Comments: Right lower quadrant abdominal pain with rebound and minimal guarding Musculoskeletal: General: Normal range of motion. Neurological: [...] No Periods). ASSESSMENT & PLAN ICD-10-CM 1. Pelvic pain in female R10.2 ciprofloxacin (Cipro) 500 MG tablet CBC and differential SURESWAB(R) ADVANCED VAGINITIS PLUS, TMA CHLAMYDIA TRACHOMATIS (GENITO/STI) Neisseria gonorrhea DNA probe, direct Urine culture Patient presents to office today for abdominal/pelvic pain. Patient voiced that she had gone to the ER the 03/21/[address] and US performed in er were negative for acute appendicitis or acute pelvic inflammation. Chronic cystic structure along the endometrial canal with bladder wall thickening seen with US. Patient has repeat US ordered and will start pt on Cipro due to bladder wall thickening. Partner states he has had dysuria over past several months post intercourse. Vaginal cultures obtained today. . Ua in er negative. Repeated in office today and will send for culture. Patient continues to exhibit pain today with guarding but states pain has improved over past 48 hours. Patient remains afebrile. We discussed concerns of appendix and reasons to return to er . We are going to repeat cbc to assess if it continues to be elevated. Patient instructed to return to er if symptoms worsen, we will follow up with her next week or sooner if necessary. Pt given scripts for tramadol today and will send in cipro. Urine test for negative test, urine culture sent out for culture. Patient given prescription for tramadol to help with pain/discomfort. Patient aware that Cipro sent to pharmacy to help if possible infection due to increased WBC. Patient advised as to when to be assessed at ER. Documented by Aruna Doty LPN on behalf of: JOSEPH Welsh documented in this encounter [facility] 03-06-2024 Miscellaneous Notes AMML for patient to call office to review tachy events from a [facility] loop recorder. Tachy events from 03/05/24 show probable AF/Aflutter with RVR, rates 169-180 bpm x 11-56 seconds @ [id number]. Per [facility], patient is on Eliquis. EGMs scanned into [...] with JESSI, patient was connected with a marble machine tender. EGM scanned into chart for your review. Please advise if you would like any changes. Thank you No changes, f/u as scheduled, thx! Patient called with JSHIRIN's recommendation. Patient verbalized understanding. Appointment confirmed for 03/29/24. Will continue to monitor. [facility] Telephone encounter Note AMML for patient to call office to review tachy events from a [facility] loop recorder. Tachy events from 03/05/24 show probable AF/Aflutter with RVR, rates 169-180 bpm x 11-56 seconds @ [id number]. Per [facility], patient is on Eliquis. EGMs scanned into [...] with JESSI, patient was connected with a marble machine tender. EGM scanned into chart for your review. Please advise if you would like any changes. Thank you [facility]24 Telephone encounter Note No changes, f/u as scheduled, thx! [facility] 03-06-2024 Telephone encounter Note Patient called with JSHIRIN's recommendation. Patient verbalized understanding. Appointment confirmed for 03/29/24. Will continue to monitor. [employer] 01-20-2024 History of Presen t illness Narrative Reason for Appointment: Patient ID: Scott Hooker is a 38 y.o. female who presents [...] Left serous otitis media, unspecified chronicity Stroke ([facility]) 2020 HISTORY PAST MEDICAL HISTORY SOCIAL HISTORY Past Medical History: Diagnosis Date Anxiety with depression anxiety/depression Left serous otitis media, unspecified chronicity Stroke ([facility]) 2020 Social History Tobacco Use Smoking status: [...] of: JOSEPH Welsh documented in this encounter [facility] 09-03-2023 Miscellaneous Notes Pt calls office stating after her ILR removal yesterday she had some continued bleeding at the surgical site. In the recovery area she states the nurse changed the physicians bandage and watched it for a while before pt was discharged. Pt had noticed some more bleeding on the bandage when she got home to [place] from [facility] and called back to the [...] bleeding. Told pt would msg JESSI at [facility] to advise care for the wkend. She should resume her apixaban. From wound care perspective, light dressing/bandaid over the area with continued pressure if actively oozing. Monitor throughout the weekend and if still oozing, please call back. Per JESSI response, phoned pt back. She confirms no active bleeding. Will change dressing and monitor and try to avoid area irritated by previous bandage. She will resume Eliquis. Will call after hours or office if any further concerns over the wkend documented in this encounter [facility] 09-03-2023 Telephone encounter Note Pt calls office stating after her ILR removal yesterday she had some continued bleeding at the surgical site. In the recovery area she states the nurse changed the physicians bandage and watched it for a while before pt was discharged. Pt had noticed some more bleeding on the bandage when she got home to [place] from [facility] and called back to the [...] bleeding. Told pt would msg BOWEN at [facility] to advise care for the wkend. [facility] 09-03-2023 Telephone encounter Note She should resume her apixaban. From wound care perspective, light dressing/bandaid over the area with continued pressure if actively oozing. Monitor throughout the weekend and if still oozing, please call back. [facility] 09-03-2023 Telephone encounter Note Per JESSI response, phoned pt back. She confirms no active bleeding. Will change dressing and monitor and try to avoid area irritated by previous bandage. She will resume Eliquis. Will call after hours or office if any further concerns over the wkend [facility] 08-18-2023 Miscellaneous Notes Pt scheduled and educated while in office, copy of education in separate labeled encounter. Pt vu and all questions answered. documented in this encounter [facility] 08-18-2023 Telephone encounter Note Pt scheduled and educated while in office, copy of education in separate labeled encounter. Pt vu and all questions answered. [facility] 08-18-2023 Miscellaneous Notes Images from the original note were not included. [facility]: Loop recorder implant/removal procedures YOUR PROCEDURE: Loop recorder replacement YOUR DOCTOR: Dr. Delon Pedersen DATE/TIME OF YOUR PROCEDURE: 09/01 @ 3:30 pm - ARRIVE AT 2:30 pm LOCATION OF YOUR PROCEDURE: [address] [address] Arrive to Entrance C, check in at [...] the nurse at the office The automated [employer] messages about your procedure can be incorrect. Please do NOT follow any automated MyChart messages as these can provide incorrect information about your procedure time, arrival time or pre op instructions. Please follow the instructions provided by the nurse in the office at the time of your visit, in the mail or through a separate Solds[employer] message labeled pre-op instructions . If you are unsure, please call the Surgery office [phone] WHAT TO BRING WITH YOU TO THE HOSPITAL: Bring your photo ID, insurance card and a current list of all your medications (including over the counter medications, vitamins and supplements) You do not need a bus driver/monitor for your procedure You may have up to TWO visitors for your procedure CALL THE SURGERY OFFICE AT [phone] IMMEDIATELY IF: You have any illness, infection [...] instructions, if you are unsure call the surgery office and spoke with the nurse [...] staff at the hospital or call the [facility] office at [phone] Inspect your incisions every day. Call immediately if you have any swelling, redness, bumps, drainage, your skin around your incision feels warm/hot or if you have a fever. Call your doctor if you have any signs of illness (fever 100 degrees or higher, chills, shivering, nausea, vomiting, discharge from your incision. documented in this encounter [facility] 08-18-2023 Telephone encounter Note Images from the original note were not included. [facility]: Loop recorder implant/removal procedures YOUR PROCEDURE: Loop recorder replacement YOUR DOCTOR: Dr. Delon Pedersen DATE/TIME OF YOUR PROCEDURE: 09/01 @ 3:30 pm - ARRIVE AT 2:30 pm LOCATION OF YOUR PROCEDURE: [address] [place] [address] Arrive to Entrance C, check in at [...] the nurse at the office The automated S[employer]hart messages about your procedure can be incorrect. Please do NOT follow any automated S[employer]iehart messages as these can provide incorrect information about your procedure time, arrival time or pre op instructions. Please follow the instructions provided by the nurse in the office at the time of your visit, in the mail or through a separate S[employer]iehart message labeled pre-op instructions . If you are unsure, please call the Surgery office [phone] WHAT TO BRING WITH YOU TO THE HOSPITAL: Bring your photo ID, insurance card and a current list of all your medications (including over the counter medications, vitamins and supplements) You do not need a bus driver/monitor for your procedure You may have up to TWO visitors for your procedure CALL THE EP SURGERY OFFICE AT [phone] IMMEDIATELY IF: You have any illness, infection [...] staff at the hospital or call the [facility] office at [phone] Inspect your incisions every day. Call immediately if you have any swelling, redness, bumps, drainage, your skin around your incision feels warm/hot or if you have a fever. Call your doctor if you have any signs of illness (fever 100 degrees or higher, chills, shivering, nausea, vomiting, discharge from your incision. [facility] 08-18-2023 History of Presen t illness Narrative Scott Hooker Date of visit: 08/18/2023 Date of : 1985 Age: 38 y.o. Patient Active Problem List Diagnosis Near syncope SOB (shortness of breath) Mass of subcutaneous tissue of back Lipoma of back Pyelonephritis Atrial flutter (CMS-HCC) Paroxysmal atrial fibrillation (CMS-HCC) Status post placement of implantable loop recorder - [employer] Preop cardiovascular exam No Known Allergies Current [...] Breath Syncope History of Present Illness Ms. Hooker is a 38F w/ PMH vasovagal syncope, eating disorder, hx TIA, renal infarct 04/02/20 thought 2/2 cardioembolic source, atrial flutter w/ [id number] 3 on apixaban 5 mg BID, s/p BSC ILR 05/2020 who presents to EP clinic at [place] for follow-up. She was last seen by [...] Medical History: Diagnosis Date Anxiety Atrial fibrillation [place] Dental disease lower dentures Depression Endometriosis Leaky heart valve Low blood pressure Near syncope Seasonal allergies Stroke ([facility]) 03/27/2020 TIA TIA (transient ischemic attack) Visual impairment glasses No data recorded No data recorded No data recorded Past Surgical History: Procedure Laterality Date DILATION AND CURETTAGE OF UTERUS 05/2017 EXCISION LIPOMA Left 07/27/2018 Performed by Stan Dee MD at [facility] OVARIAN CYST REMOVAL 04/2018 Family History [...] Reorder IMPRESSIONS/PLAN 1. Atrial flutter, unspecified type (CMS-HCC) Paroxysmal atrial fibrillation/flutter: CHADS2 Vasc 3 on apixaban 5 mg b.i.d.. Minimal burden on loop interrogation, [employer] loop recorder from May 28, 2020 has [...] PCP: OLMAN DURAN Referring Physician: OLMAN Duran [address] [place] [address] documented in this encounter [employer] 08-18-2023 Instructions Keily Wu CMA - 08/18/2023 8:45 AM EDT Are You Ready To Kick The Habit? Free Tobacco Cessation Resources [facility] Services [facility] provide all employees with free tobacco cessation services that include: Counseling to understand nicotine addiction Education about medications that can help you successfully quit Assistance with developing a plan to quit Call to set up an individual appointment or find out when group classes will be held: [facility]: [phone] [facility]: [phone] [facility]: [phone] [facility]: [phone] Quit Smoking Action Plan and Resources [facility] offers an eight-week, online smoking cessation plan to all [facility] employees, regardless of whether [facility] is your medical insurance provider. Go to www.Write.my.org/employeewel lness and click the Health Risk Assessment and Resources link to get started. In the [employer] menu, click Action Plans instead of Health Risk Assessment to access the Quit Smoking Action Plan. Additional smoking cessation resources are also available to all [facility] employees on the [employer] web page at [email or web address]/[email or web address] waters. [facility] Tobacco Cessation Program If [facility] is your medical insurance provider, there are more free resources available to you, including: No copays or deductibles on local tobacco cessation counseling services to help you quit Prescription assistance for tobacco cessation medications to help you quit For details about the tobacco cessation program available to [facility] members, go to www.G[employer]Win (Search: Tobacco Cessation Program). [place] Tobacco Quit Line 8-572-RMVX-NOW ( ) is a toll-free, telephonic service that helps [place] residents quit smoking and using tobacco. It is staffed by experts who tailor a quit plan for you and provide you with advice. [place] Tobacco Quit Line 7-886-TGVC-NOW ( ) is a toll-free, telephonic service that helps [place] residents quit smoking and using tobacco. It is staffed by experts who tailor a quit plan for you and provide you with advice. Two weeks of nicotine replacement therapy may be provided at no charge, if needed. Additional Resources These national organizations also offer free information and resources to help you quit tobacco: [place] Cancer [employer]--www.cancer.org/healthy /stayawayfromtobacco [place] Heart Association--www.heart.org (Search: Quit Smoking) Centers for Disease Control and Prevention--www.cdc.gov/tobacco [place] Lung Association--www.lungusa.org documented in this encounter [employer] 06-11-2023 Miscellaneous Notes Pt calls in to discuss letter she received regarding her Loop being at [facility] ( 05/28/2023). She does have her annual EP appt with [facility] on 08/18/2023. She is worried that her Loop will not work until then. She requested that [facility] be notified as she thinks he will want to replace it before her appointment. Additionally she is having wrist surgery sometime in next month or so and wants her Loop to monitor her during surgery. Her [facility] appointment with [facility]23 with [facility]. Loop shows rare Aflutter and occasional AT events.Attempted to reassure her that it would be OK to wait until appointment without success Will forward to [facility] for review/mrm Very reasonable to replace her loop recorder. EP surgery schedulers: Please schedule loop extraction/reimplantation with me, next available, service week okay. No need for NPO, no meds held, no labs needed, local sedation. [employer] vendor. Message left for pt with update from JZL/mrm LM for pt to call back and discuss dates for Loop explant/reimplant. Case prepped and paper work in call back folder. tkm 2 nd message left to return call to schedule ILR reimplant documented in this [facility] 06-11-2023 Telephone encounter Note Pt calls in to discuss letter she received regarding her Loop being at [facility] ( 05/28/2023). She does have her annual EP appt with [facility] on 08/18/2023. She is worried that her Loop will not work until then. She requested that [facility] be notified as she thinks he will [...] until appointment without success Will forward to [facility] for review/mrm [facility] 06-11-2023 Telephone encounter Note Very reasonable to replace her loop recorder. EP surgery schedulers: Please schedule loop extraction/reimplantation with me, next available, service week okay. No need for NPO, no meds held, no labs needed, local sedation. [employer] vendor. [facility] 06-11-2023 Telephone encounter Note Message left for pt with update from JZL/mrm [facility] 06-11-2023 Telephone encounter Note LM for pt to call back and discuss dates for Loop explant/reimplant. Case prepped and paper work in call back folder. tkm [facility] 06-11-2023 Telephone encounter Note 2 nd message left to return call to schedule ILR reimplant [facility] 05-31-2023 Miscellaneous Notes Please sign and route. Thank you ANNETTE 04/15/23 CBC & CMP 12/09/22 documented in this encounter [facility] 05-31-2023 Telephone encounter Note Please sign and route. Thank you ANNET[employer] 04/15/23 CBC & CMP 12/09/22 [facility] 04-15-2023 Miscellaneous Notes Patient saw MARCOS in office today for pre-op clearance. MARCOS had wanted to know if eliquis needed held for procedure and, if so, how long. Another nurse had left a VM. Staff from dr. Lazo's office returned call. She is going to check with dr. Lazo and call us back. Looks like MARCOS sent clearance letter today saying okay to hold for 48 hours. documented in this encounter [facility] 04-15-2023 Telephone encounter Note Patient saw MARCOS in office today for pre-op clearance. MARCOS had wanted to know if eliquis needed held for procedure and, if so, how long. Another nurse had left a VM. Staff from dr. Lazo's office returned call. She is going to check with dr. Lazo and call us back. Looks like MARCOS sent clearance letter today saying okay to hold for 48 hours. [facility] 04-15-2023 History of Presen t illness Narrative Scott Hooker Date of visit: 04/15/2023 Date of : 1985 Age: 38 y.o. Patient Active Problem List Diagnosis Near syncope SOB (shortness of breath) Mass of subcutaneous tissue of back Lipoma of back Pyelonephritis Atrial flutter (CMS-HCC) Paroxysmal atrial fibrillation (CMS-HCC) Status post placement of implantable loop recorder - [facility] Preop cardiovascular exam No Known Allergies Current [...] Complaint Patient presents with Pre-op Exam ov-pre [id number]-dr lazo [id number]-[facility] History of Present Illness Scott Hooker is a 38-year-old female past medical history of vasovagal syncope, prior TIA with renal infarct in 2020, paroxysmal atrial flutter with CHADS2 Vasc score of 3 on apixaban, [employer] implanted loop recorder Patient presents today for routine follow-up and preoperative risk stratification She will be having a uterine ablation at [facility] later this month She does notice [...] Medical History: Diagnosis Date Anxiety Atrial fibrillation ([facility] Dental disease lower dentures Depression Endometriosis Leaky heart valve Low blood pressure Near syncope Seasonal allergies Stroke ([facility] 03/27/2020 TIA TIA (transient ischemic attack) Visual impairment glasses No data recorded No data recorded No data recorded Past Surgical History: Procedure Laterality Date DILATION AND CURETTAGE OF UTERUS 05/2017 EXCISION LIPOMA Left 07/27/2018 Performed by Stan Dee MD at [facility] OVARIAN CYST REMOVAL 04/2018 Family History Problem [...] of TIA / renal infarct in 2020 [employer] implanted loop recorder Patient is low risk for upcoming surgery, okay to hold apixaban 48 hours prior to procedure and resume as soon as possible once deemed safe postprocedure. Continue remote monitoring Of her loop recorder, she has had brief runs of atrial flutter. Six-month follow-up in [place] with OLMAN Newell 04/15/23 2:44 PM Patient was seen when Dr Paz was present and immediately available in office suite. TODAYS ORDERS Orders Placed This Encounter Procedures POCT EKG FOLLOW UP Return in about 5 months (around 09/15/2023). PCP: OLMAN DURAN Referring Physician: OLMAN Duran [address] [place] [address] OLMAN Damon 04/15/23 1444 documented in this encounter [employer] [facility] Evaluation note No assessment inform ation available [facility] Work Phone: Evaluation note Diagnosis Left lower quadrant pain Abdominal pain, left lower quadrant Follow-up exam Unspecified follow-up examination History of ovarian cyst Personal history of other genital system and obstetric disorders documented in this encounter [facility]* Diagnosis Pelvic pain in female Unspecified symptom associated with female genital organs documented in this encounter [facility]* Diagnosis Preop examination- Primary Unspecified pre-operative examination Paroxysmal atrial fibrillation (CMS-HCC) Atrial fibrillation Near syncope Atrial flutter, unspecified type (CMS-HCC) documented in this encounter [facility]* Diagnosis Atrial flutter, unspecified type (CMS-HCC) [facility] Diagnosis Atrial flutter, unspecified type (CMS-HCC)- Primary documented in this encounter [facility]* Diagnosis Paroxysmal atrial fibrillation (CMS-HCC)- Primary Atrial fibrillation Atrial flutter, unspecified type (CMS-HCC) documented in this encounter [facility]* Diagnosis Pelvic pain in female Unspecified symptom associated with female genital organs documented in this encounter [facility]* Diagnosis Pre-op evaluation Pelvic pain in female Unspecified symptom associated with female genital organs History of ovarian cyst Personal history of other genital system and obstetric disorders Left lower quadrant pain Abdominal pain, left lower quadrant Abnormal uterine bleeding (AUB) documented in this encounter [facility]InstructionsNot on filedocumented in this encounterProFirelands Regional Medical [facility] SystemInstructionsNot on filedocumented in this encounterJ.W. [facility] SystemInstructionsNot on filedocumented in this encounterJ.W. [facility] SystemInstructionsNot on filedocumented in this encounterJ.W. [facility] System InstructionsNot on filedocumented in this encounterJ.W. [facility] System InstructionsNot on filedocumented in this encounterJ.W. [facility] System InstructionsNot on filedocumented in this encounterJ.W. [facility] System Summary Purpose Family History No Family History Records FoundNo Family History Records FoundNo Family History Records FoundNo Family History Records FoundNo Family History Records FoundNo Family History Records FoundNo Family History Records FoundNo Family History Records Found Advance Directives No Advanced Directives Records Found Date Activated Date Inactivated Comments 04/02/2020 4:24 PM 04/05/2020 6:23 PM Latest Code Status on File Code Status Date Activated Date Inactivated Comments Full Code 04/02/2020 4:24 PM 04/05/2020 6:23 PM Chief Complaint and Reason for Visit Chief Complaint N63.25 Chief Complaint Unknown Unknown Additional Source Comments INFORMATION SOURCE (unrecogn ized section and content) DATE CREATED AUTHOR 08/09/2018 [facility] DATE CREATED AUTHOR AUTHOR'S ORGANIZ ATION 01/13/2019 [facility] DATE CREATED AUTHOR AUTHOR'S ORGANIZ ATION 03/27/2020 [facility] DATE CREATED AUTHOR AUTHOR'S ORGANIZ ATION 04/16/2023 [facility] DATE CREATED AUTHOR AUTHOR'S ORGANIZ ATION 05/06/2023 [facility] DATE CREATED AUTHOR AUTHOR'S ORGANIZ ATION 03/31/2024 [facility] DATE CREATED AUTHOR AUTHOR'S ORGANIZ ATION 04/01/2024 [facility] DATE CREATED AUTHOR AUTHOR'S ORGANIZ ATION 04/28/2024 [facility] Care Teams (unrecognized sec tion and content) Team Status: Inactive Member Role Status Dates Trevon Pruitt MD Attending Provider Active Team Status: Inactive Member Role Status Dates Juan Lazo Attending Provider Active Start: Viridiana banner 2023 End: April 07, 2023 Team Status: Inactive Member Role Status Dates Juan Lazo Attending Provider Active Start: [facility] 2023 End: April 30, 2023 Wrap Turner Relationship Specialty Start Date End Date Lashell Moeller MD [address] [place], [place] [phone] PCP - General Family Medicine 03/03/23 Wrap Turner Relationship Specialty Start Date End Date Lashell Moeller MD [address] [place], [place] [phone] PCP - General Family Medicine 03/03/23 Wrap Turner Relationship Specialty Start Date End Date Lashell Moeller APRN-[employer] PAR[employer]ESSIONAL PCP - General Family Medicine 01/22/21 Wrap Turner Relationship Specialty Start Date End Date Lashell Moeller MD [address] [place] [phone] PCP - General Family Medicine 03/03/23 Wrap Turner Relationship Specialty Start Date End Date Lashell Moeller MD [address] [place], [place] [phone] PCP - General Family Medicine 03/03/23 Wrap Turner Relationship Specialty Start Date End Date SajanLashell OLMAN [address] [place] [phone] PCP - General Family Medicine 01/22/21 Wrap Turner Relationship Specialty Start Date End Date SajanLashell OLMAN [address] [place] [phone] PCP - General Family Medicine 01/22/21 Wrap Turner Relationship Specialty Start Date End Date Sajan Lashell, OLMAN [address] [place] [phone] PCP - General Family Medicine 01/22/21 Wrap Turner Relationship Specialty Start Date End Date Sajan LashellOLMAN [address] [place] [phone] PCP - General Family Medicine 01/22/21 Wrap Turner Relationship Specialty Start Date End Date SajanLashell OLMAN [address] [place] [phone] PCP - General Family Medicine 01/22/21 Wrap Turner Relationship Specialty Start Date End Date SajanLashellOLMAN [address] [place] [phone] PCP - General Family Medicine 01/22/21 Wrap Turner Relationship Specialty Start Date End Date Sajan OLMAN Lobo [address] [place] [phone] PCP - General Family Medicine 01/22/21 Wrap Turner Relationship Specialty Start Date End Date Lashell Moeller APRN-[employer]ESSIONAL PCP - General Family Medicine 01/22/21 Wrap Turner Relationship Specialty Start Date End Date Lashell Moeller APRN[employer]ESSIONAL PCP - General Family Medicine 01/22/21 Wrap Turner Relationship Specialty Start Date End Date Lashell Moeller MD [address] [place] [phone] PCP - [facility] Medicine 03/03/23 Wrap Turner Relationship Specialty Start Date End Date Lashell Moeller MD [address] [place] [phone] PCP - General Family Medicine 03/03/23 Wrap Turner Relationship Specialty Start Date End Date Lashell Moeller MD [address] [place] [phone] PCP - General [facility] Medicine 03/03/23 Goals (unrecognized section and content) Goals may be documented in a n alternate sectionGoals may be documented in an alternate sectionNot [...] (unrecogniz ed section and content) Reason Comments ER Follow-up Reason Onset Date Comments Tachy events on loop recorder 03/06/2024 Reason Comments Pelvic Pain Reason Comments Pre-op Exam ov-pre op-clearance- ablation-[id number] Reason Onset Date Comments Surgical Or Dental Clearance 04/15/2023 Reason Comments Med Refill Reason Onset Date Comments Loop 06/11/2023 Loop at EOS Reason Onset Date Comments EP Surgery ( PT Education) 08/18/2023 Reason Onset Date Comments EP Surgery (ILR replacement) 08/18/2023 Reason Comments Follow-up OV per MARCOS Shortness of Breath Syncope Reason Onset Date Comments s/p ILR removal 09/03/2023 Reason Comments Follow-up ov afib w rvr polly w pt FOR RECORDS PERTAINING TO PATIENTS WHO ARE [...] BE BASED ON THE PRIMARY CLINICAL RECORDS. [employer] provides no warranty or guarantee of the accuracy or completeness of information in this document.
[2024-04-30 17:21] VITALS: BP 98/64; PULSE 79; TEMP 37.2; O2SAT 98; BMI 29.9
--- NOTE | 2024-04-30 17:42 | ED.GENADUL1 ---
HPI HPI - General Adult General Chief complaint: Abdominal Pain Stated complaint: right side pain Time Seen by Provider: 04/30/24 17:36 Source: patient Mode of arrival: walk-in History of Present Illness HPI narrative: 39-year-old female presents for abdominal pain. She is complaining pain in the right lower abdomen. She has had this this time for 2 days but she has had it on and off since last year. She states that she was diagnosed with a fibroid 2 days ago and in 12 days she is going to have it removed. She is not sure if she is going to have a hysterectomy or not. No trauma or fever. She does not complain of dysuria or back pain to me. Related Data Home Medications ?Medication ?Instructions ?Recorded ?Confirmed apixaban 5 mg tablet (Eliquis) 5 mg PO BID 04/21/23 04/30/23 metoprolol succinate 25 mg 25 mg PO DAILY 04/21/23 04/30/23 tablet,extended release 24 hr Previous Rx's ?Medication ?Instructions ?Recorded hydrocodone 5 mg-acetaminophen 325 1 tab PO Q8H PRN pain 3 days #8 03/21/24 mg tablet tabs ibuprofen 600 mg tablet 600 mg PO Q8H PRN pain #20 tabs 03/21/24 ondansetron 4 mg disintegrating 4 mg PO Q8H PRN nausea and 03/21/24 tablet vomiting #10 tabs Allergies Allergy/AdvReac Type Severity Reaction Status Date / Time Sulfa (Sulfonamide Allergy Severe Rash Verified 03/21/24 13:18 Antibiotics) trimethoprim Allergy Severe Rash Verified 03/21/24 13:18 Opioid HPI Opioid Management Most Recent Opioid Data: Last Pain Scale 10 03/21/24 16:04 03/21/24 Review of Systems ROS Narrative A ten point review of systems is negative except as noted above. [facility] Medical History Fracture of right wrist ?S62.101A - Fracture of unspecified carpal bone, right wrist, initial encounter for closed fracture (ICD-10) Delayed recovery from anesthesia Abnormal uterine bleeding ?N93.9 - Abnormal uterine and vaginal bleeding, unspecified (ICD-10) Menorrhagia ?N92.0 - Excessive and frequent menstruation with regular cycle (ICD-10) Pelvic pain ?R10.2 - Pelvic and perineal pain (ICD-10) Visual impairment ?H54.7 - Unspecified visual loss (ICD-10) TIA (transient ischemic attack) ?G45.9 - Transient cerebral ischemic attack, unspecified (ICD-10) Seasonal allergies ?J30.2 - Other seasonal allergic rhinitis (ICD-10) Low blood pressure ?I95.9 - Hypotension, unspecified (ICD-10) Leaky heart valve ?I38 - Endocarditis, valve unspecified (ICD-10) Endometriosis ?N80.9 - Endometriosis, unspecified (ICD-10) Depression ?F32.A - Depression, unspecified (ICD-10) Anxiety ?F41.9 - Anxiety disorder, unspecified (ICD-10) Near syncope ?R55 - Syncope and collapse (ICD-10) Lipoma of back ?D17.1 - Benign lipomatous neoplasm of skin and subcutaneous tissue of trunk (ICD-10) Pyelonephritis ?N12 - Tubulo-interstitial nephritis, not specified as acute or chronic (ICD-10) Atrial fibrillation ?I48.91 - Unspecified atrial fibrillation (ICD-10) Atrial flutter ?I48.92 - Unspecified atrial flutter (ICD-10) Surgical History H/O ovarian cystectomy ?Z98.890 - Other specified postprocedural states (ICD-10) ?Z87.42 - Personal history of other diseases of the female genital tract (ICD-10) S/P excision of lipoma ?Z98.890 - Other specified postprocedural states (ICD-10) ?Z86.018 - Personal history of other benign neoplasm (ICD-10) H/O dilation and curettage ?Z98.890 - Other specified postprocedural states (ICD-10) Family History Other Arthritis Asthma Autism Depression Family history of cancer Family history of diabetes mellitus Family history of hypertension Heart disease Social History Within the past year, how often did you have a drink containing alcohol: never Score interpretation: A score less than 3 is consistent with normal alcohol consumption. Smoking status: Current every day smoker Non-prescribed substance use: denies use Previous occupational history: [employer] Highest level of school completed/degree received: high school graduate Little interest or pleasure in doing things: not at all Feeling down, depressed, or hopeless: not at all Exam Narrative Exam Narrative: Nurses note and vital signs reviewed and patient is not hypoxic. General: The patient appears in no apparent distress. Skin: Warm, dry, no pallor noted. There is no rash noted. Head: Normocephalic, atraumatic Eye: Normal conjunctiva, no drainage Ears, Nose, Mouth, and Throat: oral mucosa is moist. Nares patent. Cardiovascular: Regular Rate and Rhythm Respiratory: Patient is in no distress, no accessory muscle use, lungs are clear to auscultation, no wheezing, rales or rhonchi Back: non-tender GI: Soft and nondistended. No masses. Tenderness present in the right lower abdomen Musculoskeletal: The patient has no evidence of calf tenderness, no pitting edema, symmetrical pulses noted bilaterally Neurological: A&O, normal speech Psychiatric: Cooperative Constitutional Vital Signs, click to edit/add: Last Vital Signs Temp 99.0 F 04/30/24 17:21 Pulse 79 04/30/24 17:21 Resp 16 04/30/24 17:21 BP 98/64 04/30/24 17:21 Pulse Ox 98 04/30/24 17:21 O2 Del Method Room Air 04/30/24 17:21 Course Vital Signs Vital signs: Vital Signs Temperature 99.0 F 04/30/24 17:21 Pulse Rate 79 04/30/24 17:21 Respiratory Rate 16 04/30/24 17:21 Blood Pressure 98/64 04/30/24 17:21 Pulse Oximetry 98 04/30/24 17:21 Oxygen Delivery Method Room Air 04/30/24 17:21 Temperature 99.0 F 04/30/24 17:21 Pulse Rate 79 04/30/24 17:21 Respiratory Rate 16 04/30/24 17:21 Blood Pressure 98/64 04/30/24 17:21 Pulse Oximetry 98 04/30/24 17:21 Oxygen Delivery Method Room Air 04/30/24 17:21 Medical Decision Making MDM Narrative Medical decision making narrative: WBC is mildly elevated at 12,000. CT scan is ordered. Other blood test are pending as well and the patient is signed out to Dr. Mcnair at change of shift. Differential Diagnosis Differential Diagnosis: Endometriosis, uterine fibroid, appendicitis, UTI Lab Data Lab results reviewed: Yes I reviewed the patient's lab results Labs: Lab Results 04/30/24 Range/Units 17:57 WBC 12.6 H (4.0-11.0) 10^3/uL RBC 4.54 (4.20-5.40) 10^6/uL Hgb 13.8 (12.0-16.0) g/dL Hct 40.2 (36.0-48.0) % MCV 88.5 (81.0-99.0) fL MCH 30.4 (26.7-34.0) pg MCHC 34.3 (29.9-35.2) g/dL RDW 12.2 (11.0-15.0) % Plt Count 335 (150-450) 10^3/uL MPV 8.9 L (9.5-13.5) fL Neut % (Auto) 65.2 (43.0-75.0) % Lymph % (Auto) 26.2 (20.5-60.0) % [place] % (Auto) 6.5 (1.7-12.0) % Eos % (Auto) 0.9 (0.9-7.0) % Baso % (Auto) 0.7 (0.2-2.0) % Neut # (Auto) 8.2 H (1.4-6.5) 10^3/uL Lymph # (Auto) 3.3 (1.2-3.8) 10^3/uL [place] # (Auto) 0.8 (0.3-0.8) 10^3/uL Eos # (Auto) 0.1 (0.0-0.7) 10^3/uL Baso # (Auto) 0.1 (0.0-0.1) 10^3/uL Abs Immat Gran (auto) 0.06 H (0.00-0.03) 10^3/uL Imm/Tot Granulo (auto) 0.5 (0.0-0.5) % Discharge Plan Discharge Chief Complaint: Abdominal Pain Clinical Impression: Abdominal pain Qualifiers: Abdominal location: right lower quadrant Qualified Code(s): R10.31 - Right lower quadrant pain Patient Disposition: Still a Patient Prescriptions / Home Meds: No Action Eliquis 5 mg tablet 5 mg PO BID metoprolol succinate 25 mg tablet extended release 24 hr 25 mg PO DAILY hydrocodone-acetaminophen 5-325 mg tablet 1 tab PO Q8H PRN (Reason: pain) 3 Days Qty: 8 0RF ibuprofen 600 mg tablet 600 mg PO Q8H PRN (Reason: pain) Qty: 20 0RF ondansetron 4 mg tablet,disintegrating 4 mg PO Q8H PRN (Reason: nausea and vomiting) Qty: 10 0RF Print Language: Romanian Referrals: NILESH GALINDO [Primary Care Provider] - 1 week
[2024-04-30 18:05] LABS: Basophils Absolute Auto 0.1 10^3/uL (0.0-0.1); Basophils Percent Auto 0.7 % (0.2-2.0); Eosinophils Absolute Auto 0.1 10^3/uL (0.0-0.7); Eosinophils Percent Auto 0.9 % (0.9-7.0); Hematocrit 40.2 % (36.0-48.0); Hemoglobin 13.8 g/dL (12.0-16.0); Immature Granulocytes Abs Auto 0.06 10^3/uL (0.00-0.03); Immature Granulocytes Pct Auto 0.5 % (0.0-0.5); Lymphocytes Absolute Auto 3.3 10^3/uL (1.2-3.8); Lymphocytes Percent Auto 26.2 % (20.5-60.0); Mean Corpuscular HGB Conc 34.3 g/dL (29.9-35.2); Mean Corpuscular Hemoglobin 30.4 pg (26.7-34.0); Mean Corpuscular Volume 88.5 fL (81.0-99.0); Mean Platelet Volume 8.9 fL (9.5-13.5); Monocytes Absolute Auto 0.8 10^3/uL (0.3-0.8); Monocytes Percent Auto 6.5 % (1.7-12.0); Neutrophils Absolute Auto 8.2 10^3/uL (1.4-6.5); Neutrophils Percent Auto 65.2 % (43.0-75.0); Platelet Count 335 10^3/uL (150-450); Red Blood Count 4.54 10^6/uL (4.20-5.40); Red Cell Distribution Width 12.2 % (11.0-15.0); White Blood Count 12.6 10^3/uL (4.0-11.0)
[2024-04-30 18:48] LABS: Bilirubin Urine NEGATIVE (NEGATIVE); Blood Urine TRACE-I (NEGATIVE); Clarity Urine CLEAR (CLEAR); Color Urine LT. YELLOW (YELLOW); Glucose Urine UA NEGATIVE (NEGATIVE); Ketones Urine NEGATIVE (NEGATIVE); Leukocyte Esterase Urine NEGATIVE (NEGATIVE); Nitrite Urine NEGATIVE (NEGATIVE); Protein Urine NEGATIVE (NEG/TRACE); Urobilinogen Urine 0.2 EU/dL (0.2-1.0)
[2024-04-30 18:56] LABS: Anion Gap 14.6; BUN Creatinine Ratio 12.8; Calcium 9.1 mg/dL (8.5-10.1); Carbon Dioxide 24.7 mmol/L (21.0-32.0); Chloride 104 mmol/L (98-107); Estimated GFR (African America >60 (>=60 mL/min/1.73m^2); Estimated GFR (Non-African Ame >60 (>=60 mL/min/1.73m^2); Glucose 110 mg/dL (74-106); HCG Qualitative NEGATIVE (NEGATIVE); Internal Control Within Normal Limits; Potassium 4.3 mmol/L (3.5-5.1); Sodium 139 mmol/L (136-145)
[2024-04-30 19:00] LABS: Bacteria Urine SMALL #/HPF (NONE SEEN); Mucus Urine NONE SEEN (NONE SEEN); RBC Urine 0-2 #/HPF (0-2); WBC Urine 0-2 #/HPF (NONE SEEN)
[2024-04-30 19:01] LABS: Cast Seen? NONE SEEN #/LPF (NONE SEEN); Crystals Seen? None Seen #/HPF (None Seen); Squamous Epithelial Cell Urine MODERATE #/LPF (NONE/RARE); Urine Culture Indicated YES-FRMC
[2024-04-30] MEDS: DOXYCYCLINE MONOHYDRATE 100 MG CAPSULE PO (21:32)
[2024-04-30] MEDS: CEFTRIAXONE 500 MG VIAL IM (21:32)
[2024-04-30 21:39] VITALS: BP 128/62; PULSE 80; TEMP 36.3; O2SAT 98
== END 2024-04-30 21:42 | disposition home or self-care (01) ==
PROVIDERS: Emergency Provider Emergency Medicine
DX: R10.31 Right lower quadrant pain (principal); N71.9 Inflammatory disease of uterus, unspecified; D25.9 Leiomyoma of uterus, unspecified; F17.200 Nicotine dependence, unspecified, uncomplicated
CPT/HCPCS: 36415; 74177; 80048; 81001; 84703; 85025; 87086; 96372; 99285; J0696; Q9967

== ENCOUNTER 2024-05-02 14:32 | Outpatient (OUT) | payer OTHER, SELFPAY ==
[2024-05-02 15:47] LABS: INR 1.03; Partial Thromboplastin Time 31.6 sec (22.3-36.2); Prothrombin Time 10.9 sec (9.0-11.6)
== END 2024-05-02 14:33 | disposition home or self-care (01) ==
LOC: PST 14:33
PROVIDERS: Visit Provider Obstetrics & Gynecology
DX: Z01.812 Encounter for preprocedural laboratory examination (principal); R10.2 Pelvic and perineal pain; Z87.42 Personal history of other diseases of the female genital tract; R10.32 Left lower quadrant pain; N93.9 Abnormal uterine and vaginal bleeding, unspecified
CPT/HCPCS: 85610; 85730

== ENCOUNTER 2024-05-12 10:17 | Day surgery (SDC) | payer OTHER, SELFPAY ==
[2024-05-02 15:02] VITALS: BP 98/65; PULSE 77; TEMP 36.4; O2SAT 99; BMI 29.1
[2024-05-12] VITALS (13 sets, daily range): BP systolic 98–121; BP diastolic 65–78; PULSE 65–90; TEMP 36–36.2; O2SAT 96–99; BMI 29.1
[2024-05-12 10:29] LABS: Basophils Absolute Auto 0.1 10^3/uL (0.0-0.1); Basophils Percent Auto 0.6 % (0.2-2.0); Eosinophils Absolute Auto 0.2 10^3/uL (0.0-0.7); Hematocrit 42.4 % (36.0-48.0); Hemoglobin 14.5 g/dL (12.0-16.0); Immature Granulocytes Abs Auto 0.03 10^3/uL (0.00-0.03); Immature Granulocytes Pct Auto 0.3 % (0.0-0.5); Lymphocytes Absolute Auto 3.1 10^3/uL (1.2-3.8); Lymphocytes Percent Auto 30.2 % (20.5-60.0); Mean Corpuscular HGB Conc 34.2 g/dL (29.9-35.2); Mean Corpuscular Volume 87.6 fL (81.0-99.0); Mean Platelet Volume 8.5 fL (9.5-13.5); Monocytes Absolute Auto 0.6 10^3/uL (0.3-0.8); Monocytes Percent Auto 6.3 % (1.7-12.0); Neutrophils Absolute Auto 6.2 10^3/uL (1.4-6.5); Neutrophils Percent Auto 60.6 % (43.0-75.0); Platelet Count 312 10^3/uL (150-450); Red Blood Count 4.84 10^6/uL (4.20-5.40); Red Cell Distribution Width 12.2 % (11.0-15.0); White Blood Count 10.2 10^3/uL (4.0-11.0)
[2024-05-12 10:59] LABS: HCG Quantitative <1 mIU/mL
[2024-05-12] MEDS: LACTATED RINGER'S SOLUTION 1,000 ML 50 ML IV ×2 (11:21→15:09)
--- NOTE | 2024-05-12 14:27 | PM.ONB ---
Brief Operative Note Date of procedure: 05/12/24 Pre-op diagnosis general: pelvic pain, dysmenorrhea Post-op diagnosis: other (hematometrium) Procedure: NAME OF PROCEDURE: [ D&c hysteroscopy, diagnostic laparoscopy ] finding endometrial implants PROCEDURE: The patient was taken back to the Operating Room where she was prepped and draped in normal sterile fashion after being placed under general anesthesia without difficulty. She was also placed in the dorsal lithotomy position. A weighted speculum was placed in the patient?s vagina. The anterior lip of the cervix was identified and grasped with a single tooth tenaculum. The patient?s uterus was then sounded roughly to [? 8] cm. The patient was then gently dilated using Hegar dilators. The hysteroscope was passed through the patient?s cervix into the uterus. there was stenosis dt prior ablation, could not identify cavity, please note hematometrium was noted prior to passing scope with dilation, endometrial pipette used to obtain endometrial sampling. The hysteroscope was then removed from the uterus. The endometrial curettings were sent out to pathology. The single tooth tenaculum was then removed from the patient's anterior lip of the cervix where excellent hemostasis was noted. . A sponge stick was placed into the patient's vagina. Attention was turned to the patient's abdomen, where a small umbilical incision was made. The fascia was tented using Dorcas clamps and the fascia was entered sharply. Confirmation of intraabdominal placement of the 10 mm port was confirmed under direct visualization using a laparoscope. The patient's abdomen was then insufflated using CO2 gas with approximately 4 liters. A second port was placed left laterally, this was done under direct visualization with a 5 mm port. Survey of the patient's abdomen demonstrated normal liver and gallbladder. Survey of the patient's pelvic anatomy demonstrated normal appearing rt and lt ovary and tubes as well as normal appearing uterus. endometrial implants could be noted on pelvic side wall and uterine serosa, no evidence of any pelvic disease was seen, normal appearing pelvic cavity. All instruments were removed from the patient's abdomen. The patient's abdomen was deinsufflated of CO2 gas. The patient tolerated the procedure well. Sponge stick was removed from the patient's vagina. The patient's infraumbilical fascia was closed using #0 Vicryl on a GI needle. The patient's skin was closed laterally and infraumbilically using 4-0 Vicryl. The patient tolerated the procedure well. Sponge, lap and needle counts were correct x 2. The patient was taken to Recovery Room in stable condition. Anesthesia: DEMIAN Surgeon: Juan Lazo Computer Field Technician: Toshia Singh Estimated blood loss (mL): 5 Pathology: other (endometrial currettings) Condition: stable Disposition: PACU Urinary Catheter Management Urinary Catheter Management Urethral: Cath placed during this visit: no
[2024-05-12] MEDS: HYDROCODONE/ACET 5-325 MG TABLET 1 TAB PO (16:08)
== END 2024-05-12 16:30 | disposition home or self-care (01) ==
PROVIDERS: Visit Provider Obstetrics & Gynecology
PROC: (CPT 840; principal; 2024-05-12 11:35)
DX: R10.2 Pelvic and perineal pain (principal); R10.32 Left lower quadrant pain; N93.9 Abnormal uterine and vaginal bleeding, unspecified; Z87.42 Personal history of other diseases of the female genital tract; N85.7 Hematometra; F17.210 Nicotine dependence, cigarettes, uncomplicated; Z79.01 Long term (current) use of anticoagulants; I48.91 Unspecified atrial fibrillation; Z86.73 Personal history of transient ischemic attack (TIA), and cerebral infarction without residual deficits; K21.9 Gastro-esophageal reflux disease without esophagitis
CPT/HCPCS: 49320; 58558; 36415; 84702; 85025; 88305; J1100; J1885; J2250; J2405; J2704; J3010

== ENCOUNTER 2024-07-05 19:58 | Outpatient (REF) | payer OTHER, SELFPAY ==
--- OUTSIDE RECORDS SUMMARY | 2024-07-05 11:00 | XMS_ITS | Encounter Summary ---
Author Organization [facility] Address [address] [place] [address] Care Team Providers Care Tractor Trailer Mechanic Name Role Phone Lashell Moeller MD Primary Care Provider [phone] Reason for Visit * Reason Comments Well Women Visit Encounter Details Date Type Department Care Team (Late st Contact Info) Description 07/05/2024 11:00 AM EDT Office Visit [facility] [address] [place] [phone] Juan Lazo, DO [address] [place], [place] [id number] Well woman exam with routine gynecological exam Social History Tobacco Use Types Packs/Day Years Used Date Smoking Tobacco: Every Day Cigarettes Alcohol Use Standard Drinks/Week Comments Never 0 (1 standard drink = 0.6 oz pur e alcohol) caffeine: 1-2 cups per day Comments No Sex and Gender Information Value Date Recorded Sex Assigned at Not on file Legal Sex Female 6:46 PM EDT Gender Identity Not on file Sexual Orientation Not on file documented as of this encounter Last Filed Vital Signs Vital Sign Reading Time Taken Comments Blood Pressure 112/68 07/05/2024 11:27 AM EDT Pulse - - Temperature - - Respiratory Rate - - Oxygen Saturation - - Inhaled Oxygen Concentration - - Weight 68.9 kg (152 lb) 07/05/2024 11:27 AM EDT Height - - Body Mass Index 28.72 12/25/2019 12:00 PM EST documented in this encounter Progress Notes * Aysha Aguilar LPN - 07/05/2024 11:00 AM EDT Reason for Appointment: Patient ID: Scott Hooker is a 39 y.o. female who presents for Well Women Visit Patient presents today for Annual Exam. MEDICATIONS Current Outpatient Medications Medication Instructions acetaminophen [...] Left serous otitis media, unspecified chronicity Stroke ([facility] 2020 HISTORY PAST MEDICAL HISTORY SOCIAL HISTORY Past Medical History: Diagnosis Date Anxiety with depression anxiety/depression Left serous otitis media, unspecified chronicity Stroke ([facility]) 2020 Social History Tobacco Use Smoking status: [...] Date DILATION AND CURETTAGE OF UTERUS 2018 DILATION AND CURETTAGE OF UTERUS 05/12/2024 D&C hysteroscopy, diagnostic laparoscopy OTHER SURGICAL HISTORY uterine ablation 04/2023 REVIEW OF SYSTEMS Review of Systems: Review of Systems Constitutional: Negative. HENT: Negative. Eyes: Negative. Respiratory: Negative. Cardiovascular: Negative. Gastrointestinal: Negative. Genitourinary: Negative. Musculoskeletal: Negative. Skin: Negative. Neurological: Negative. All other systems reviewed and are negative. Hematological: Negative. Endocrine: Negative. Allergic/Immunologic: Negative. OBJECTIVE Objective: Physical Exam Constitutional: Appearance: Normal appearance. She is well-developed. Genitourinary: Vulva normal. Breasts: Breasts are soft. Right: Normal. Left: Normal. Cardiovascular: Rate and Rhythm: Normal rate and [...] nursing note reviewed. Exam conducted with a shoemaker custom present. Vitals: Estimated body mass index is 28.72 kg/m?? as calculated from the following: Height as of 12/25/19: 5' 1 . Weight as of this encounter: 152 lb. BP: 112/68 No LMP recorded. Patient has had an ablation. ASSESSMENT & PLAN ICD-10-CM 1. Well woman exam with routine gynecological exam Z01.419 Pap Smear HPV DNA probe, amplified Annual Exam: Patient presents today for an annual exam. Patient states she is doing well and has no complaints. Pap was obtained without difficulty. Orders Placed This Encounter Procedures HPV DNA probe, amplified Follow Up: Patient is to return in one year for annual unless needed otherwise. Documented by Aysha Aguilar LPN on behalf of: Juan Lazo DO documented in this encounter Plan of Treatment Scheduled Orders Name Type Priority Associated Diagnoses Orde r Schedule Pap Smear Pathology and Cytology Routine Well woman exam with routine gynecological exam Ordered: 07/05/2024 HPV DNA probe, amplified Microbiology Routine Well woman exam with routine gynecological exam Ordered: 07/05/2024 documented as of this encounter Visit Diagnoses Diagnosis Well woman exam with routine gynecological exam Routine gynecological examination documented in this encounter Care Teams Tractor Trailer Mechanic Relationship Specialty Start Date End Date Lashell Moeller MD [address] [place] [phone] PCP - General Family Medicine 03/03/23 documented as of this encounter
--- OUTSIDE RECORDS SUMMARY | 2024-07-05 20:02 | XMS_ITS | Encounter Summary ---
Author Organization [facility] Address [address] [place] [address] Care Team Providers Care Lobbyist Name Role Phone Lashell Moeller MD Primary Care Provider [phone] Encounter Details Date Type Department Care Team (Late st Contact Info) Description 03/24/2024 Abstract [facility] [address] [facility] [address] [place] [address] Juan Lazo, DO [address] [facility] [place] [address] Social History Tobacco Use Types Packs/Day Years [...] on file documented as of this encounter Plan of Treatment Not on file documented as of this encounter Visit Diagnoses Not on filedocumented in this encounter Care Teams Lobbyist Relationship Specialty Start Date End Date Lashell Moeller MD [address] [place] [address] PCP - General Family Medicine 03/03/23 documented as of this encounter
--- OUTSIDE RECORDS SUMMARY | 2024-07-05 20:02 | XMS_ITS | Encounter Summary ---
Author Organization [facility] Address [address] [place] [address] Care Team Providers Care Red Leader Name Role Phone Lashell Moeller MD Primary Care Provider [phone] Encounter Details Date Type Department Care Team (Late st Contact Info) Description 01/19/2024 Abstract [facility] [address] [facility] [place] [address] Juan Lazo, DO [address] [place] [address] Social History Tobacco Use Types Packs/Day Years [...] on filedocumented in this encounter Care Teams Red Leader Relationship Specialty Start Date End Date Lashell Moeller MD [address] [place] [address] PCP - General Family Medicine 03/03/23 documented as of this encounter
--- OUTSIDE RECORDS SUMMARY | 2024-07-05 20:02 | XMS_ITS | Encounter Summary ---
Author Organization [facility] Address [address] [place] [address] Care Team Providers Care Forming Machine Adjuster Name Role Phone Lashell Moeller MD Primary Care Provider [phone] Encounter Details Date Type Department Care Team (Late st Contact Info) Description 03/10/2023 Clinisync Result Encounter [facility] External Department Unsolicited Abi Lazo, DO [address] [facility] [address] [place], [place] [id number] Social History Tobacco Use Types Packs/Day Years Used Date Smoking Tobacco: Every Day Cigarettes Alcohol Use Standard Drinks/Week Comments Never 0 (1 standard drink = 0.6 oz pur e alcohol) caffeine: 1-2 cups per day Comments Unknown Sex and Gender Information Value Date Recorded Sex Assigned at Not on file Legal Sex Female 6:46 PM EDT Gender Identity Not on file Sexual Orientation Not on file documented as of this encounter Plan of Treatment Not on file documented as of this encounter Procedures Procedure Name Priority Date/Time Associated Diagnosis Comments US PELVIS W/ TRANSVAGINAL 03/10/2023 3:18 PM EST [facility] PREG QUANT HCG Routine 03/10/2023 1: 41 PM EST ALL THYROXINE (T4) FREE Routine 03/10/2023 1:41 PM EST ALL THYROID STIM HORMONE Routine 03/10/2023 1:41 PM EST documented in this encounter Results * US PELVIS W/ TRANSVAGINAL (03/10/2023 3:18 PM EST) Anatomical Region Laterality Modality Other 03/10/2023 3:18 PM EST Narrative 03/10/2023 3:21 PM EST [address] [address] Ultrasound Report Signed Patient: ARIEL SALAS MR#: [id number] : 1985 Acct:[id number] Age/Sex: 37 / F ADM Date: 03/10/23 Loc: US Attending Dr: Abi Lazo D.O. Ordering Physician: Abi Lazo D.O. Date of Service: 03/10/23 Procedure(s): US pelvis w/ transvaginal Accession Number(s): [id number] cc: Abi Lazo D.O.; OSMAR FLORES The [place] [id number] Patient Name: ARIEL SALAS MRN: [id number] date: 1985 Sex: F Assigned Patient Location: US Current Patient Location: US Accession/Order Number: [id number] Exam Date: 03/10/2023 13:45 Report Date: 03/10/2023 15:18 At the request of: ABI LAZO Procedure: US pelvis w/ transvaginal EXAMINATION: US pelvis w/ transvaginal HISTORY: Pelvic Pain COMPARISON: No relevant comparison available. FINDINGS: The uterus is retroflexed. The uterus is normal in size, contour and echotexture measuring 8.5 x 4.8 x 5.8 cm. The endometrium measures 3 mm. Acoustic shadowing in the endometrial cavity consistent with an IUD poorly visualized on these images The right ovary is 1.9 x 1.4 x 1.3 cm. Normal color and Doppler flow. Area of anechoic echogenicity measuring 1.2 cm, cyst versus follicle The left ovary measures 3.3 x 2.5 x 2.5 cm. Normal color and Doppler flow. Area of anechoic echogenicity measuring 2.5 cm, simple cyst No free fluid US/US pelvis w/ transvaginal IMPRESSION: Bilateral ovarian cysts Electronically authenticated by: JOYCE POWELL Date: 03/10/2023 15:18 Dictated By: Joyce Powell M.D. Signed By: 03/10/23 1521 DD/ 1518 TD/TT: Dental Hygiene Teacher: Procedure Note Radiology, Radiologist, - 03/10/2023 [place] [address] Ultrasound Report Signed Patient: ARIEL SALAS EMR#: [id number] : 1985Acct:[id number] Age/Sex: 37 / FADM Date: 03/10/23 Loc: US Attending Dr: Abi Lazo D.O. Ordering Physician: Abi Lazo D.O. Date of Service: 03/10/23 Procedure(s): US pelvis w/ transvaginal Accession Number(s): [id number] cc: Abi Lazo D.O.; OSMAR FLORES The [address] [address] Patient Name: ARIEL SALAS MRN: [facility]:[id number] date: 1985 Sex: F Assigned Patient Location: US Current Patient Location: US Accession/Order Number: [id number] Exam Date: 03/10/2023 13:45 Report Date: 03/10/2023 15:18 At the request of: ABI LAZO Procedure: US pelvis w/ transvaginal EXAMINATION: US pelvis w/ transvaginal HISTORY: Pelvic Pain COMPARISON: No relevant comparison available. FINDINGS: The uterus is retroflexed. The uterus is normal in size, contour and echotexture measuring 8.5 x 4.8 x 5.8 cm. The endometrium measures 3 mm. Acoustic shadowing in the endometrialcavity consistent with an IUD poorly visualized on these images The right ovary is 1.9 x 1.4 x 1.3 cm. Normal color and Doppler flow. Areaof anechoic echogenicity measuring 1.2 cm, cyst versus follicle The left ovary measures 3.3 x 2.5 x 2.5 cm. Normal color and Doppler flow. Area of anechoic echogenicity measuring 2.5 cm, simple cyst No free fluid US/US pelvis w/ transvaginal IMPRESSION: Bilateral ovarian cysts Electronically authenticated by: JOYCE POWELL Date: 03/10/2023 15:18 Dictated By: Joyce Powell M.D. Signed By:03/10/23 1521 DD/ 1518 TD/TT: Dental Hygiene Teacher: Abi Violet DO [facility] Final Result * ALL THYROXINE (T4) FREE (03/10/2023 1:41 PM EST) FREE T4 0.84 0.76 - 1.46 ng/dL TB 03/10/2023 1:41 PM EST 03/10/2023 2:00 PM EST Narrative [facility] - 03/10/2023 3:42 PM EST Abi Violet DO [facility] Final Result Performing Organization Address City/[facility]/ZIP Co de Phone Number [facility] * [facility] PREG QUANT HCG (03/10/2023 1:41 PM EST) HCG QUANTITATIVE <1 mIU/mL TB[facility] Comment: 5-50 0.2-1 WEEK 50-500 1-2 WEEKS 100-5,000 2-3 WEEKS 500-10,000 3-4 WEEKS 1,000-50,000 4-5 WEEKS 10,000-100,000 5-6 WEEKS 15,000-200,000 6-8 WEEKS 10,000-100,000 2-3 MONTHS 03/10/2023 1:41 PM EST 03/10/2023 2:00 PM EST Narrative [facility] - 03/10/2023 3:24 PM EST Abi Violet DO [facility] Final Result [facility] * ALL THYROID STIM HORMONE (03/10/2023 1:41 PM EST) THYROID STIMULATING HORMONE 1.774 0.358 - 3.740 uIU/mL [facility] 03/10/2023 1:41 PM EST 03/10/2023 2:00 PM EST Narrative [facility] - 03/10/2023 3:24 PM EST us Abi Lazo DO [facility] Final Result [facility] documented in this encounter Visit Diagnoses Not on filedocumented in this encounter Care Teams Forming Machine Adjuster Relationship Specialty Start Date End Date Lashell Moeller MD [address] [place] [address] PCP - General Family Medicine 03/03/23 documented as of this encounter
--- OUTSIDE RECORDS SUMMARY | 2024-07-05 20:02 | XMS_ITS | Encounter Summary ---
Author Organization [employer] Address [facility] [place]-[id number] [address] [place] [address] Care Team Providers Care Senior Systems Developer Name Role Phone Lashell Moeller APRN-TWILL CUTTER Primary Care Provider Reason for Visit * Reason Comments Med Refill Encounter Details Date Type Department Care Team ([facility] Contact Info) Description 04/15/2021 Refill [facility] Ob[facility]ne[facility] [address] [facility] [phone] Diana Storey DO [address] [place] [place], [place] [phone] Social History Tobacco Use Types Packs/Day Years Used Date Smoking Tobacco: Every Day Cigarettes 0.3 10 Started: 04/03/2010; Last attempted to quit: 04/03/2020 Smokeless Tobacco: Never Alcohol Use Standard Drinks/Week Comments No 0 (1 standard drink = 0.6 oz pur e alcohol) Childcare Answer Date Recorded Childcare Unknown 07/08/2018 Employment Answer Date Recorded Employment Unknown 07/08/2018 Purpose - Life Answer Date Recorded Purpose and direction in life Unknown Comments No Sex and Gender Information Value Date Recorded Sex Assigned at Not on file Legal Sex Female 11:36 AM EDT Gender Identity Not on file Sexual Orientation Not on file documented as of this encounter Plan of Treatment Upcoming Encounters Date Type Department Care Team (Late Contact Info) Description 10/04/2024 8:00 AM EDT Office Visit [facility] Cardiology [address] [place] [phone] Delon Pedersen MD [address] [place] [phone] documented as of this encounter Visit Diagnoses Not on filedocumented in this encounter Care Teams Senior Systems Developer Relationship Specialty Start Date End Date Lashell Moeller APRN-TWILL CUTTER PCP - General Family Medicine 01/22/21 documented as of this encounter
--- OUTSIDE RECORDS SUMMARY | 2024-07-05 20:02 | XMS_ITS | Encounter Summary ---
Author Organization [facility] Address [address] [place] [address] Care Team Providers Care Telephone Technician Name Role Phone Lashell Moeller MD Primary Care Provider [phone] Encounter Details Date Type Department Care Team (Late st Contact Info) Description 11/29/2023 Abstract [facility] [address] [facility] [place] [address] Juan Lazo, DO [address] [facility] [place] [address] Social History Tobacco Use Types Packs/Day Years [...] on filedocumented in this encounter Care Teams Telephone Technician Relationship Specialty Start Date End Date Lashell Moeller MD [address] [place] [address] PCP - General Family Medicine 03/03/23 documented as of this encounter
--- OUTSIDE RECORDS SUMMARY | 2024-07-05 20:02 | XMS_ITS | Encounter Summary ---
Author Organization [employer] Address [facility] [id number] [address] [place] [address] Care Team Providers Care Natural Resources Specialist Name Role Phone Lashell Moeller ANETTE-DIALYSIS EQUIPMENT TECHNICIAN Primary Care Provider Encounter Details Date Type Department Care Team (Late st Contact Info) Description 07/09/2020 [facility]phone [facility] [address] [place] [phone] Vanessa Silveira MA Social History Tobacco Use Types Packs/Day Years Used Date Smoking Tobacco: Former Cigarettes 0.5 10 0 04/03/2010 - 04/03/2020 Smokeless Tobacco: Never Alcohol Use Standard [...] on file Sexual Orientation Not on file COVID-19 Exposure Response Date Recorded In the last month, have you been in contact with someone who was confirmed or suspected to have Coronavirus / COVID-19? Unable to assess 07/10/2020 6:29 AM EDT documented as of this encounter Miscellaneous Notes * Telephone Encounter - Vanessa Silveira MA - 07/09/2020 11:40 AM EDT Called patient to remind them to bring their most current copy of medication list with them to their appt. Patient verbalizes understanding. documented in this encounter Plan of Treatment Upcoming Encounters Date Type Department Care Team (Late st Contact Info) Description 10/04/2024 8:00 AM EDT Office Visit [facility] Cardiology [address] [place] [address] Delon Pedersen MD [address] [place] [address] documented as of this encounter Visit Diagnoses Not on filedocumented in this encounter Care Teams Natural Resources Specialist Relationship Specialty Start Date End Date Lashell Moeller APRN-MEAGAN PCP - General Family Medicine 01/22/21 documented as of this encounter
--- OUTSIDE RECORDS SUMMARY | 2024-07-05 20:02 | XMS_ITS | Clinical Summary ---
Author Organization [employer] Address [id number] [address] [place] [address] Care Team Providers Care Digital Content Marketing Manager Name Role Phone Sajan Lashell CHEEMA-DIGITAL ASSET MANAGER Primary Care Provider Allergies No known active allergies Medications traMADoL (ULTRAM) 50 mg tablet Take 1 tablet (50 mg total) by mouth every 6 (six) hours as needed for pain. Active metoprolol succinate XL (TOPROL XL) 25 mg 24 hr tablet Take 1 tablet (25 mg total) by mouth in the morning. 90 tablet 3 03/29/2024 Active apixaban (ELIQUIS) 5 mg tabletIndication s:Atrial flutter, unspecified type ([facility]) TAKE 1 TABLET BY MOUTH TWICE A DAY (MORNING AND BEFORE BEDTIME) 90 tablet 3 03/29/2024 Active Hospital, Clinic, or Other Facility Administered Medication Ordered Dose Route Frequency Start Date End Date Status acetaminophen (TYLENOL) tablet 650 mgIndications:Mass of subcutaneous tissue of back 650 mg oral Every 6 hours 07/27/2018 Active Active Problems Problem Noted Date Diagnosed Date Preop cardiovascular exam 07/09/2022 Status post placement of implantable loop record er - [employer] 07/10/2020 Atrial flutter 04/17/2020 Paroxysmal atrial fibrillation 04/17/2020 Pyelonephritis 04/02/2020 Lipoma of back 08/08/2018 Mass of subcutaneous tissue of back 06/21/2018 SOB (shortness of breath) 06/24/2017 Near syncope Encounters Date Type Department Care Team Description 04/28/2024 Telephone [facility] [address] [place] [address] Patsy Gonzalez, banquet coordinator Or Dental Clearance 04/20/2024 Telephone [facility] Card[facility] [address] [place] [address] Usman Espinoza RN from Last 3 Months Family History Medical History Relation Name Comments Asthma Daughter 1 Autism Daughter 2 Depression Father Breast cancer Maternal Aunt Arthritis Maternal Grandmother Diabetes Maternal Grandmother Heart disease Maternal Grandmother No Known Problems Mother Depression Paternal Grandfather Heart disease Paternal Grandmother No Known Problems Son Relation Name Status Comments Daughter 1 Alive Daughter 2 Alive Father Alive Maternal Aunt Maternal Grandfather Maternal Grandmother Mother Alive Paternal Grandfather Paternal Grandmother Son Alive Social History Tobacco Use Types Packs/Day Years Used Date Smoking Tobacco: Every Day Cigarettes 0.5 10 Started: 04/03/2010; Last attempted to quit: 04/03/2020 Smokeless Tobacco: Never Tobacco Cessation:Ready to Q uit: Yes; Counseling Given: Yes Alcohol Use Standard Drinks/Week Comments No 0 (1 standard drink = 0.6 oz pur e alcohol) Childcare Answer Date Recorded Childcare Unknown 07/08/2018 Employment Answer Date Recorded Employment Unknown 07/08/2018 Hunger Screening Answer Date Recorded Within the past 12 months we worried whether our food would run out before we got money to buy more. Never True 11/29/2023 Within the past 12 months th e food we bought just didn't last and we didn't have money to get more. Never True 11/29/2023 Purpose - Life Answer Date Recorded Purpose and direction in life Unknown Comments No Sex and Gender Information Value Date Recorded Sex Assigned at Not on file Legal Sex Female 11:36 AM EDT Gender Identity Not on file Sexual Orientation Not on file Last Filed Vital Signs Vital Sign Reading Time Taken Comments Blood Pressure 110/74 03/29/2024 10:29 AM EST Pulse 91 03/29/2024 10:29 AM EST Temperature 36.6 C (97.8 F) 11/29/2023 7:31 PM EDT Respiratory Rate 18 11/29/2023 7:31 PM EDT Oxygen Saturation 98% 03/29/2024 10:29 AM EST Inhaled Oxygen Concentration - - Weight 68.9 kg (152 lb) 03/29/2024 10:29 AM EST Height 154.9 cm (5' 1 ) 03/29/2024 10:29 AM EST Body Mass Index 28.72 03/29/2024 10:29 AM EST Plan of Treatment Upcoming Encounters Date Type Department Care Team (Late st Contact Info) Description 10/04/2024 8:00 AM EDT Office Visit [facility] [address] [place] [address] Delon Pedersen MD [address] [place] [address] Health Maintenance Due Date Last Done Comments Depression Screening 1999 Adult BMI Follow Up Plan 2005 DTaP,Tdap and Td Vaccines (7 - Td or Tdap) 10/05/2022 10/05/2012, 05/19/1999, 06/23/1988, Additional history exists Influenza Vaccine 10/09/2024 Adult BMI Screening 03/29/2025 03/29/2024 Tobacco Screening 03/29/2025 03/29/2024 Tobacco Counseling 09/26/2025 03/29/2024 Pap Smear 06/15/2026 06/16/2023 Medical Devices Implanted Type Area Olive Packer Device Identifier Shelf Expiration Date Model / Serial / Lot Lux -Dx Ii + Icm - [id number] Implanted:Qty: 1 on 09/02/2023 by Delon Pedersen MD at [facility] Other Implant [employer]M [id number] / / Lux-Dx-06/06/19 Implanted:Qty: 1 on 06/05/2020 by Tomasz Paz MD [employer]/RONNIE 06/30/2021 [id number] / [id number] / Procedures Procedure Name Priority Date/Time Associated Diagnosis Comments PA REM INTERROG SCRMS <30 D PHYS/QHP Routine 06/12/2024 9:46 PM EDT PA REM INTERROG SCRMS <30 D PHYS/QHP Routine 05/07/2024 8:47 AM EDT from Last 3 Months Results * Remote Device Check (06/12/2024 9:46 PM EDT) Anatomical Region Laterality Modality Other 06/12/2024 9:46 PM EDT us Tomasz Paz MD HEALTH MAINTENANCE Final Result * Remote Device Check (05/07/2024 8:47 AM EDT) Anatomical Region Laterality Modality Other 05/07/2024 8:47 AM EDT us Tomasz Paz MD HEALTH MAINTENANCE Final Result from Last 3 Months Insurance [place] [employer]'S [employer]ENSATION [employer] [employer] Advance Directives * Full Code (Latest Code Status on File) Date Activated Date Inactivated Comments 04/02/2020 4:24 PM 04/05/2020 6:23 PM Care Teams Digital Content Marketing Manager Relationship Specialty Start Date End Date Lashell Moeller APRN-DIGITAL ASSET MANAGER PCP - General Family Medicine 01/22/21
--- OUTSIDE RECORDS SUMMARY | 2024-07-05 20:02 | XMS_ITS | Encounter Summary ---
Author Organization [employer] Address [id number] [address] [place] [address] Care Team Providers Care Desktop Manager Name Role Phone Lashell Moeller APRN-ADMINISTRATIVE SERVICES COORDINATOR Primary Care Provider Reason for Visit * Reason Onset Date Comments Med Refill 11/30/2022 Encounter Details Date Type Department Care Team (Late Contact Info) Description 11/30/2022 Refill [facility] Cardiology [address] [place] [address] Fredi Henson, SHAHANA Med Refill Social History Tobacco Use Types Packs/Day Years [...] Upcoming Encounters Date Type Department Care Team ([facility] Contact Info) Description 10/04/2024 8:00 AM EDT Office Visit [facility] [address] [place] [phone] Delon Pedersen MD [address] [place] [address] documented as of this encounter Results * (ABNORMAL) Comprehensive metabolic panel (12/09/2022 9:51 AM EDT) Sodium 137 134 - 146 mmol/L 12/09/2022 2:15 PM EDT [facility] Potassium, Bld 4.5 3.5 - 5.0 mmol/L 12/09/2022 2:15 PM EDT [facility] Chloride 104 98 - 109 mmol/L 12/09/2022 2:15 PM EDT [facility] CO2 26 22 - 32 mmol/L 12/09/2022 2:15 PM EDT [facility] Anion gap 7 5 - 15 mmol/L 12/09/2022 2:15 PM EDT [facility] BUN 14 5 - 23 mg/dL 12/09/2022 2:15 PM EDT [facility] Creatinine 0.83 0.40 - 1.00 mg/dL 12/09/2022 2:15 PM EDT [facility] Comment:METHOD TRACEABLE TO IDMS STANDARD Glucose 99 65 - 99 mg/dL 12/09/2022 2:15 PM EDT [facility] Calcium 9.5 8.5 - 10.5 mg/dL 12/09/2022 2:15 PM EDT [facility] Total Protein 7.2 6.0 - 8.0 g/dL 12/09/2022 2:15 PM EDT [facility] Albumin 4.2 3.2 - 5.3 g/dL 12/09/2022 2:15 PM EDT [facility] Alkaline Phosphatase 38(L) 39 - 130 U/L 12/09/2022 2:15 PM EDT [facility] AST 21 0 - 41 U/L 12/09/2022 2:15 PM EDT [facility] ALT 24 0 - 31 U/L 12/09/2022 2:15 PM EDT [facility] Total bilirubin 0.4 0.3 - 1.2 mg/dL 12/09/2022 2:15 PM EDT [facility] eGFR (CKD-EPI)non-rac e dependent >90 >59 ml/min/1.7 3sq.m 12/09/2022 2:15 PM EDT [facility] Comment: Reported eGFR is based on the CKD-EPI 2020 equation that does not use a race coefficient. PLASMA 12/09/2022 9:51 AM EDT 12/09/2022 9:56 AM EDT us Mi Blake RULING TECHNICIAN-ADMINISTRATIVE SERVICES COORDINATOR LAB BLOOD ORDERABLES Final Result SANDI [facility] [address] [place] [address] * CBC without diff (12/09/2022 9:51 AM EDT) White Blood Cells 8.2 4.0 - 11.0 X10E9/L 12/09/2022 2:08 PM EDT [facility] RBC count 4.47 3.80 - 5.20 X10E12/L 12/09/2022 2:08 PM EDT [facility] Hemoglobin 13.8 11.7 - 15.5 g/dL 12/09/2022 2:08 PM EDT [facility] Hematocrit 40.6 35 - 47 % 12/09/2022 2:08 PM EDT [facility] MCV 91 80 - 100 fL 12/09/2022 2:08 PM EDT [facility] MCH 31.0 27 - 34 pg 12/09/2022 2:08 PM EDT [facility] MCHC 34.1 32 - 36 g/dL 12/09/2022 2:08 PM EDT [facility] RDW 12.6 11.5 - 15.0 % 12/09/2022 2:08 PM EDT [facility] Platelets 390 150 - 450 X10E9/L 12/09/2022 2:08 PM EDT [facility] MPV 7.3 7 - 12 fL 12/09/2022 2:08 PM EDT [facility] Blood / Unknown 12/09/2022 9 :51 AM EDT 12/09/2022 9:56 AM EDT us Mi Mayra Blake RULING TECHNICIAN-ADMINISTRATIVE SERVICES COORDINATOR LAB BLOOD ORDERABLES Final Result [facility] [address] [place] [address] documented in this encounter Visit Diagnoses Diagnosis Atrial flutter, unspecified type (CMS-HCC) documented in this encounter Care Teams Desktop Manager Relationship Specialty Start Date End Date Lashell Moeller APRN-CNP PCP - General Family Medicine 01/22/21 documented as of this encounter
--- OUTSIDE RECORDS SUMMARY | 2024-07-05 20:02 | XMS_ITS | Encounter Summary ---
Author Organization [facility] Address [address] [place] [address] Care Team Providers Care Advertising Agency Manager Name Role Phone Lashell Moeller MD Primary Care Provider [phone] Encounter Details Date Type Department Care Team (Late st Contact Info) Description 2024 Abstract [facility] [address] [facility] [place] [address] Juan Lazo, DO [address] [facility] [place] [address] [address] Social History Tobacco Use Types Packs/Day Years [...] on filedocumented in this encounter Care Teams Advertising Agency Manager Relationship Specialty Start Date End Date Lashell Moeller MD [address] [place] [address] PCP - General Family Medicine 03/03/23 documented as of this encounter
--- OUTSIDE RECORDS SUMMARY | 2024-07-05 20:02 | XMS_ITS | Encounter Summary ---
Author Organization [facility] Address [address] [place] [address] Care Team Providers Care Thermostat Machine Tender Name Role Phone Lashell Moeller MD Primary Care Provider [phone] Encounter Details Date Type Department Care Team (Late st Contact Info) Description 05/12/2024 Abstract [facility] [address] [facility] [place] [address] Juan Lazo, DO [address] [facility] [place] [address] Social History Tobacco Use Types Packs/Day Years [...] on filedocumented in this encounter Care Teams Thermostat Machine Tender Relationship Specialty Start Date End Date Lashell Moeller MD [address] [place] [address] PCP - General Family Medicine 03/03/23 documented as of this encounter
--- OUTSIDE RECORDS SUMMARY | 2024-07-05 20:02 | XMS_ITS | Clinical Summary ---
Author Organization [facility] Address [address] [place] [address] Care Team Providers Care Consulting Solution Manager Name Role Phone Lashell Moeller MD Primary Care Provider [phone] Allergies Active Allergy Reactions Criticality Noted Date Comments Sulfamethoxazole Rash Low 03/03/2023 Trimethoprim Rash Low 03/03/2023 Medications apixaban (Eliquis) 5 MG tablet TAKE ONE TABLET BY MOUTH EVERY MORNING AND BEFORE BEDTIME 11/30/2022 Active metoprolol succinate XL (Toprol-XL) 25 MG 24 hr tablet Take 25 mg by mouth in the morning. 08/10/2022 Active acetaminophen (Tylenol) 160 MG/5ML liquid 02/17/2023 Activ e cetirizine (ZyrTEC) 10 MG tablet 02/15/2023 Active traMADol (Ultram) 50 MG tablet Take 50 mg by mouth every 6 (six) hours if needed Active Encounters Date Type Department Care Team Description 07/05/2024 11:00 AM EDT Office Visit [facility] [address] [place], [place] [address] [address] Juan Lazo DO Well woman exam with routine gynecological exam 07/05/2024 Bamboo flowsheet [facility] [place] [address] Juan Lazo DO 05/31/2024 10:40 AM EDT Office Visit [facility] [place] [address] [place] [address] Jena Boggs NP Postoperative follow-up 05/31/2024 Bamboo flowsheet [facility] [place] [address] Jena Boggs, MARYLOU 05/23/2024 Tele[address] [facility] [address] [place] [address] Juan Lazo, DO 05/12/2024 Abstract [facility] [address] [place] [address] Juan Lazo, DO 05/12/2024 Clinisync Result Encounter [facility] External Department Unsolicited Juan Lazo, DO 05/02/2024 Clinisync Result Encounter [facility]OM[facility] External Department Unsolicited Juan Lazo, DO 05/01/2024 Tele[address] [facility] [address] [place] [address] Juan Lazo, 04/26/2024 1:00 PM EDT Consult [facility] [address] [place] [address] Juan Lazo, Pre-op evaluation; Pelvic pain in female; History of ovarian cyst; Left lower quadrant pain; Abnormal uterine bleeding (AUB) 04/26/2024 Bamboo flowsheet [facility] [address] [place] [address] Juan Lazo, 04/19/2024 9:30 AM EDT Ancillary Procedure [facility] [address] [place] [address] Pelvic pain in female; History of ovarian cyst 04/19/2024 Tele[address] [facility] [address] [place] [address] Kami Polanco LPN from Last 3 Months Family History Medical History Relation Name Comments Colon cancer Maternal Grandfather Diabetes Maternal Grandmother Heart disease Maternal Grandmother Hypertension Maternal Grandmother Diabetes Paternal Grandmother Hypertension Paternal Grandmother Relation Name Status Comments Daughter 1 Alive Daughter 2 Alive Father Alive Maternal Grandfather Maternal Grandmother Mother Alive Paternal Grandmother Son Alive Social History Tobacco Use Types Packs/Day Years Used Date Smoking Tobacco: Every Day Cigarettes Tobacco Cessation:Ready to Q uit: Not Asked; Counseling Given: Not Answered Alcohol Use Standard Drinks/Week Comments Never 0 [...] (152 lb) 07/05/2024 11:27 AM EDT Height 154.9 cm (5' 1 ) 12/25/2019 12:00 PM EST Body Mass Index 28.72 12/25/2019 12:00 PM EST Plan of Treatment Not on file Procedures Procedure Name Priority Date/Time Associated Diagnosis Comments [facility] PREG QUANT HCG Routine 05/12/2024 10 :25 AM EDT ALL CBC WITH AUTO DIFF Routine 05/12/2024 10:25 AM EDT [facility] APTT Routine 05/02/2024 3:10 PM EDT [facility] PROTHROMBIN TIME INR W/O COUM Routine 05/02/2024 3:10 PM EDT US PELVIC COMPLETE W/ TV Routine 04/19/2024 9:41 AM EDT Pelvic pain in female History of ovarian cyst from Last 3 Months Results * [facility] PREG QUANT HCG (05/12/2024 10:25 AM EDT) HCG QUANTITATIVE <1 mIU/mL [facility] Comment: 5-50 0.2-1 WEEK 50-500 1-2 WEEKS 100-5,000 2-3 WEEKS 500-10,000 3-4 WEEKS 1,000-50,000 4-5 WEEKS 10,000-100,000 5-6 WEEKS 15,000-200,000 6-8 WEEKS 10,000-100,000 2-3 MONTHS 05/12/2024 10:2 5 AM EDT 05/12/2024 10:25 AM EDT Narrative CLINISYNC - 05/12/2024 10:59 AM EDT Juan Lazo DO CLINISYNC Final Result [facility] TB * (ABNORMAL) ALL CBC WITH AUTO DIFF (05/12/2024 10:25 AM EDT) Pathologist [facility] TB WBC 10.2 4.0 - 11.0 10 3/uL [facility] TBH RBC 4.84 4.20 - 5.40 10 6/uL [facility] TBH HGB 14.5 12.0 - 16.0 g/dL [facility] TBH HCT 42.4 36.0 - 48.0 % [facility] MCV 87.6 81.0 - 99.0 fL TBH TBH MCH 30.0 26.7 - 34.0 pg TBH TBH MCHC 34.2 29.9 - 35.2 g/dL [facility] TBH RDW 12.2 11.0 - 15.0 % [facility] TBH PLT 312 150 - 450 10 3/uL TBH TBH MPV 8.5(L) 9.5 - 13.5 fL [facility] NEUTROPHILS PERCENT AUTO 60.6 43.0 - 75.0 % [facility] LYMPHOCYTES PERCENT AUTO 30.2 20.5 - 60.0 % [facility] MONOCYTES PERCENT AUTO 6.3 1.7 - 12.0 % [facility] TBH EO % 2.0 0.9 - 7.0 % [facility] BASOPHILS PERCENT AUTO 0.6 0.2 - 2.0 % [facility] IMMATURE GRANULOCYTES PCT AUTO 0.3 0.0 - 0.5 % [facility] NEUTROPHILS ABSOLUTE AUTO 6.2 1.4 - 6.5 10 3/uL [facility] LYMPHOCYTES ABSOLUTE AUTO 3.1 1.2 - 3.8 10 3/uL [facility] MONOCYTES ABSOLUTE AUTO 0.6 0.3 - 0.8 10 3/uL TBH TBH EO # 0.2 0.0 - 0.7 10 3/uL [facility] BASOPHILS ABSOLUTE AUTO 0.1 0.0 - 0.1 10 3/uL [facility] IMMATURE GRANULOCYTES ABS AUTO 0.03 0.00 - 0.03 10 3/uL [facility] 05/12/2024 10:2 5 AM EDT 05/12/2024 10:25 AM EDT Narrative CLINISYNC - 05/12/2024 10:53 AM EDT us Juan Violet DO CLINISYNC Final Result [facility] * [facility] PROTHROMBIN TIME INR W/O COUM (05/02/2024 3:10 PM EDT) PROTHROMBIN TIME 10.9 9.0 - 11.6 sec TB TB INR 1.03 [facility] Comment: DESIRED INR: 2.0-3.0 CONDITIONS NOT LISTED BELOW 2.5-3.5 FOR PROSTHETIC HEART VALVE REPLACEMENT 2.5-3.5 RECURRENT THROMBOSIS 05/02/2024 3:10 PM EDT 05/02/2024 3:12 PM EDT Narrative CLINISYNC - 05/02/2024 3:47 PM EDT us Juan Violet DO CLINISYNC Final Result Performing Organization Address City/[facility]/ZIP Co de Phone Number [facility] * [facility] APTT (05/02/2024 3:10 PM EDT) PARTIAL THROMBOPLASTIN TIME 31.6 22.3 - 36.2 sec [facility] 05/02/2024 3:10 PM EDT 05/02/2024 3:12 PM EDT Narrative CLINISYNC - 05/02/2024 3:47 PM EDT us Juan Violet DO CLINISYNC Final Result Performing Organization Address City/State/[facility] Co de Phone Number [facility] * US Pelvis w/ TV (04/19/2024 9:41 AM EDT) Anatomical Region Laterality Modality Pelvis Ultrasound 04/20/2024 11:5 9 AM EDT Narrative 04/20/2024 11:59 AM EDT EXAM: Pelvic Ultrasound, Transvaginal. REASON FOR EXAM: [...] report is generated using voice recognition reporting (DAQRI). On occasion DAQRI erroneously drops words from the report or replaces the spoken word with similar sounding words. Please call with any questions/concerns regarding this report.* Dictated and transcribed 04/19/24/dpd This report has been electronically signed and approved by the interpreting radiologist. Procedure Note Arnie Nunez MD - 04/20/2024 EXAM: Pelvic Ultrasound, Transvaginal. REASON FOR EXAM: History of ovarian cyst. COMPARISON: None TECHNIQUE: Grayscale and color Doppler ultrasound of the pelvisperformed. FINDINGS: Uterus/Endometrium: The uterus is heterogeneous. There is a hypoechoicavascular mass in the posterior uterus measuring 1.5 x 1.3 x 2.9 cm. Theendometrium is not well depicted. Cervix: Not well [...] cc IMPRESSION: Ill-defined heterogeneous endometrium with a hypoechoicsubendometrial mass. This is possibly a fibroid. *This report is generated using voice recognition reporting (DAQRI).On occasion [employer] erroneously drops words from the report orreplaces the spoken word with similar sounding words. Please call with anyquestions/concerns regarding this report.* Dictated and transcribed 04/19/24/dpd This report has been electronically signed and approved by theinterpreting radiologist. us Juan Lazo DO IMG US PROCEDURES Final Result from Last 3 Months Insurance [employer] Care Teams Consulting Solution Manager Relationship Specialty Start Date End Date Lashell Moeller MD [address] [place] [address] PCP - General Family Medicine 03/03/23
--- OUTSIDE RECORDS SUMMARY | 2024-07-05 20:02 | XMS_ITS | Encounter Summary ---
Author Organization [facility] Address [address] [place] [address] Care Team Providers Care Wire Spooler Name Role Phone Lashell Moeller MD Primary Care Provider [phone] Encounter Details Date Type Department Care Team (Late st Contact Info) Description 03/23/2024 Abstract [facility] [address] [place] [address] Juan Lazo, DO [address] [facility] [place] [address] Social History Tobacco Use Types Packs/Day Years [...] on filedocumented in this encounter Care Teams Wire Spooler Relationship Specialty Start Date End Date Lashell Moeller MD [address] [place] [address] PCP - General Family Medicine 03/03/23 documented as of this encounter
--- OUTSIDE RECORDS SUMMARY | 2024-07-05 20:02 | XMS_ITS | Encounter Summary ---
Author Organization [facility] Address [address] [place] [address] Care Team Providers Care Missile Pad Mechanic Name Role Phone Lashell Moeller MD Primary Care Provider [phone] Encounter Details Date Type Department Care Team (Late st Contact Info) Description 03/23/2024 Abstract [facility] [address] [facility] [place] [address] Juan Lazo, DO [address] [facility] [place] [address] Social History Tobacco Use Types Packs/Day Years [...] on filedocumented in this encounter Care Teams Missile Pad Mechanic Relationship Specialty Start Date End Date Lashell Moeller MD [address] [place] [address] PCP - General Family Medicine 03/03/23 documented as of this encounter
--- OUTSIDE RECORDS SUMMARY | 2024-07-05 20:02 | XMS_ITS | Encounter Summary ---
Author Organization [facility] Address [address] [place] [address] Care Team Providers Care Diagnostics Sales Developer Name Role Phone Lashell Moeller MD Primary Care Provider [phone] Encounter Details Date Type Department Care Team (Late st Contact Info) Description 06/25/2023 Orders Only [facility] [address] [place] [address] Patricia Taylor LPN [address] [employer] [address] [place], [place] [id number] Social History Tobacco Use Types Packs/Day Years [...] Procedure Name Priority Date/Time Associated Diagnosis Comments PAP SMEAR Routine 06/16/2023 12:00 AM EDT documented in this encounter Results * Pap Smear (06/16/2023 12:00 AM EDT) Swab Cervical swab / Unknown us [facility] Violet Nurse LAB CYTOLOGY ORDERABLES Final Result EXTERNAL LAB documented in this encounter Visit Diagnoses Not on filedocumented in this encounter Care Teams Diagnostics Sales Developer Relationship Specialty Start Date End Date Lashell Moeller MD [address] [place] [address] (work) PCP - General Family Medicine 03/03/23 documented as of this encounter
--- OUTSIDE RECORDS SUMMARY | 2024-07-05 20:02 | XMS_ITS | Encounter Summary ---
Author Organization [facility] Address [address] [place] [address] Care Team Providers Care Registered Representative Name Role Phone Lashell Moeller MD Primary Care Provider [phone] Encounter Details Date Type Department Care Team (Late st Contact Info) Description 03/10/2024 Abstract [facility] [address] [facility] [place] [place] [address] Juan Lazo, DO [address] [facility] [place] [address] Social History Tobacco Use Types Packs/Day Years [...] on filedocumented in this encounter Care Teams Registered Representative Relationship Specialty Start Date End Date Lashell Moeller MD [address] [place] [address] PCP - General Family Medicine 03/03/23 documented as of this encounter
--- OUTSIDE RECORDS SUMMARY | 2024-07-05 20:02 | XMS_ITS | Encounter Summary ---
Author Organization [facility] Address [address] [place] [address] Care Team Providers Care Naumkeag Operator Name Role Phone Lashell Moeller MD Primary Care Provider [phone] Encounter Details Date Type Department Care Team (Late st Contact Info) Description 01/19/2024 Abstract [facility] [address] [facility] [place] [address] Juan Lazo, DO [address] [facility] [place] [address] Social History Tobacco Use Types Packs/Day Years [...] on filedocumented in this encounter Care Teams Naumkeag Operator Relationship Specialty Start Date End Date Lashell Moeller MD [address] [place] [address] PCP - General Family Medicine 03/03/23 documented as of this encounter
--- OUTSIDE RECORDS SUMMARY | 2024-07-05 20:02 | XMS_ITS | Encounter Summary ---
Author Organization [facility] Address [address] [place] [address] Care Team Providers Care Classified Advertising Clerk Name Role Phone Lashell Moeller MD Primary Care Provider [phone] Encounter Details Date Type Department Care Team (Late st Contact Info) Description 2024 Abstract [facility] [address] [facility] [place] [address] Juan Lazo, DO [address] [facility] [place] [address] Social History Tobacco Use Types Packs/Day Years [...] on filedocumented in this encounter Care Teams Classified Advertising Clerk Relationship Specialty Start Date End Date Lashell Moeller MD [address] [place] [address] PCP - General Family Medicine 03/03/23 documented as of this encounter
--- OUTSIDE RECORDS SUMMARY | 2024-07-05 20:02 | XMS_ITS | Encounter Summary ---
[facility] Address [id number] [address] [place] [address] Care Team Providers Care Formwork Carpenter Name Role Phone Lashell Moeller ANETTE-MEDICAL RESEARCH ASSISTANT Primary Care Provider [phone] Reason for Visit * Reason Onset Date Comments S/P LOOP IMPLANT 06/06/2020 Encounter Details Date Type Department Care Team (Late st Contact Info) Description 06/06/2020 [facility]phone [facility] [address] [place] [address] Tomasz Paz MD [address] [place] [address] S/P LOOP IMPLANT Social History Tobacco Use Types Packs/Day Years [...] or suspected to have Coronavirus / COVID-19? No / Unsure 06/05/2020 7:18 AM EDT documented as of this encounter Miscellaneous Notes * Telephone Encounter - Suni Amezquita - 06/06/2020 10:32 AM EDT Per message from 06/05/2020 procedure list: Pt had loop recorder implanted w/ [facility]K @ [facility] where pt hasbeen dcd. Will need ov w/ EP MADDIE 1-2mos after d/c //keb * Telephone Encounter - Alex Griggs - 06/06/2020 10:32 AM EDT Bad phone connection pt hung up - second call vm full not able to leave msg to [facility] documented in this encounter Plan of Treatment Upcoming Encounters Date Type Department Care Team (Late st Contact Info) Description 10/04/2024 8:00 AM EDT Office Visit [facility] [address] [place] [address] Delon Pedersen MD [address] [place] [address] documented as of this encounter Visit Diagnoses Not on filedocumented in this encounter Care Teams Formwork Carpenter Relationship Specialty Start Date End Date Lashell Moeller APRN-MEAGAN PCP - General Family Medicine 01/22/21 documented as of this encounter
--- OUTSIDE RECORDS SUMMARY | 2024-07-05 20:02 | XMS_ITS | Encounter Summary ---
Author Organization [facility] Address [address] [place] [address] Care Team Providers Care Chip Mucker Name Role Phone Lashell Moeller MD Primary Care Provider [phone] Encounter Details Date Type Department Care Team (Late st Contact Info) Description 03/23/2024 Abstract [facility] [address] [facility] [place] [address] Juan Lazo, DO [address] [facility] [place] [address] Social History Tobacco Use Types Packs/Day Years [...] on filedocumented in this encounter Care Teams Chip Mucker Relationship Specialty Start Date End Date Lashell Moeller MD [address] [place] [address] PCP - General Family Medicine 03/03/23 documented as of this encounter
--- OUTSIDE RECORDS SUMMARY | 2024-07-05 20:02 | XMS_ITS | Encounter Summary ---
Author Organization [employer] Address [id number] [address] [place] [address] Care Team Providers Care Md Senior Research Scientist Name Role Phone Lashell Moeller ANETTE-CHAMBER WALKER Primary Care Provider [phone] Encounter Details Date Type Department Care Team (Late st Contact Info) Description 04/20/2024 [facility]phone [facility] [address] [place] [address] Usman Espinoza, RN Social History Tobacco Use Types Packs/Day Years [...] on file documented as of this encounter Miscellaneous Notes * Telephone Encounter - Usman Espinoza RN - 04/20/2024 8:35 AM EDT Patient calls today to request a preop clearance for an upcoming procedure with her OB-NCR OPERATOR Dr. Lazo. I do not see a clearance request form. Advised patient to have their office fax us a clearance form. Patient V/U. * Telephone Encounter - Usman Espinoza RN - 04/20/2024 8:35 AM EDT Surgeon: Dr. Juan Lazo Type of surgery: Diagnostic Laparoscopy Date of surgery: 05/12/2024 Surgery location: [facility] GRAIN MERCHANDISING MANAGER Type of anesthesia: General On a blood thinner?: Eliquis Indication? Atrial Flutter On an antiplatelet?: Not indicated in chart. Stent: Not indicated in chart. Date of last EK03/29/2024 Last office visit date and who they saw: 03/29/2024; SER Their preference of how long to hold blood thinners/antiplatelet: You recommendations. History of CVA/TIA, DVT/PE? TIA 2020 * Telephone Encounter - Delon Pedersen MD - 04/20/2024 8:35 AM EDT Low cardiac risk for low risk procedure, no additional cardiac testing needed. Ok to hold apixaban 2 days prior to procedure, resume as soon as deemed safe by proceduralist. * Telephone Encounter - Usman Espinoza RN - 04/20/2024 8:35 AM EDT Letter generated and faxed per JZL recommendations. Patient notified. documented in this encounter Plan of Treatment Upcoming Encounters Date Type Department Care Team (Late st Contact Info) Description 10/04/2024 8:00 AM EDT Office Visit [facility] [address] [place] [address] Delon Pedersen MD [address] [place] [address] documented as of this encounter Visit Diagnoses Not on filedocumented in this encounter Care Teams Md Senior Research Scientist Relationship Specialty Start Date End Date Lashell Moeller APRN-MEAGAN PCP - General Family Medicine 01/22/21 documented as of this encounter
--- OUTSIDE RECORDS SUMMARY | 2024-07-05 20:02 | XMS_ITS | Encounter Summary ---
Author Organization [facility] Address [address] [place] [address] Care Team Providers Care Storage Garage Attendant Name Role Phone Lashell Moeller MD Primary Care Provider [phone] Encounter Details Date Type Department Care Team (Late st Contact Info) Description 03/23/2024 Abstract [facility] [address] [facility] [place] [address] Juan Lazo, DO [address] [facility] [place] [address] Social History Tobacco Use Types Packs/Day Years [...] on filedocumented in this encounter Care Teams Storage Garage Attendant Relationship Specialty Start Date End Date Lashell Moeller MD [address] [place] [address] PCP - General Family Medicine 03/03/23 documented as of this encounter
--- OUTSIDE RECORDS SUMMARY | 2024-07-05 20:02 | XMS_ITS | Encounter Summary ---
Author Organization [employer] Address [id number] [address] [place] [address] Care Team Providers Care Superior Court Judge Name Role Phone Lashell Moeller ANETTE-HOT WOUND SPRING PRODUCTION SUPERVISOR Primary Care Provider [phone] Reason for Visit * Reason Onset Date Comments Med Refill 05/16/2021 Encounter Details Date Type Department Care Team (Late st Contact Info) Description 05/16/2021 Refill [facility] [address] [place] [id number] Tamiko Beauchamp RN Med Refill Social History Tobacco Use Types [...] Exposure Response Date Recorded In the last 10 days, have yo u been in contact with someone who was confirmed or suspected to have Coronavirus/COVID-19? No / Unsure 05/19/2021 1:58 PM EDT documented as of this encounter Plan of Treatment Upcoming Encounters Date Type Department Care Team (Late Contact Info) Description 10/04/2024 8:00 AM EDT Office Visit [facility] [address] [place] [address] Delon Pedersen MD [address] [place] [address] documented as of this encounter Results * Liver panel (05/19/2021 2:04 PM EDT) Alkaline phosphatase 41 39 - 130 U/L 05/19/2021 6:29 PM EDT [facility] AST 17 0 - 41 U/L 05/19/2021 6:29 PM EDT [facility] ALT 20 0 - 31 U/L 05/19/2021 6:29 PM EDT [facility] Total Bilirubin 0.3 0.3 - 1.2 mg/dL 05/19/2021 6:29 PM EDT [facility] Bilirubin, direct 0.0 0.0 - 0.4 mg/dL 05/19/2021 6:29 PM EDT [facility] Albumin 4.2 3.2 - 5.3 g/dL 05/19/2021 6:29 PM EDT [facility] Total Protein 7.1 6.0 - 8.0 g/dL 05/19/2021 6:29 PM EDT [facility] PLASMA 05/19/2021 2:04 PM EDT 05/19/2021 2:05 PM EDT us Krystyna Hatch APRN-HOT WOUND SPRING PRODUCTION SUPERVISOR LAB BLOOD ORDERABLES Final Result [facility] [address] [facility] [place] [address] documented in this encounter Visit Diagnoses Diagnosis Medication management- Primary documented in this encounter Care Teams Superior Court Judge Relationship Specialty Start Date End Date Lashell Moeller APRN-CNP PCP - General Family Medicine 01/22/21 documented as of this encounter
--- OUTSIDE RECORDS SUMMARY | 2024-07-05 20:02 | XMS_ITS | Encounter Summary ---
Author Organization [facility] Address [address] [place] [address] Care Team Providers Care Artificial Limb Maker Name Role Phone Lashell Moeller MD Primary Care Provider [phone] Encounter Details Date Type Department Care Team (Late st Contact Info) Description 07/05/2024 Bamboo flowsheet [facility] OB [address] [place] [address] Juan Lazo, DO [address] [place], [place] [address] Social History Tobacco Use Types Packs/Day Years [...] on filedocumented in this encounter Care Teams Artificial Limb Maker Relationship Specialty Start Date End Date Lashell Moeller MD [address] [place] [address] PCP - General Family Medicine 03/03/23 documented as of this encounter
--- OUTSIDE RECORDS SUMMARY | 2024-07-05 20:02 | XMS_ITS | Encounter Summary ---
Author Organization [facility] Address [address] [place] [address] Care Team Providers Care Filenet Developer Name Role Phone Lashell Moeller MD Primary Care Provider [phone] Encounter Details Date Type Department Care Team (Late st Contact Info) Description 2024 Abstract [facility] [address] [facility] [place] [address] Juan Lazo, DO [address] [facility] [place] [address] Social History Tobacco Use Types Packs/Day Years [...] on filedocumented in this encounter Care Teams Filenet Developer Relationship Specialty Start Date End Date Lashell Moeller MD [address] [place] [address] PCP - General Family Medicine 03/03/23 documented as of this encounter
--- OUTSIDE RECORDS SUMMARY | 2024-07-05 20:02 | XMS_ITS | Encounter Summary ---
Author Organization [facility] Address [id number] [address] [place] [address] Care Team Providers Care Veterans Employment Representative Name Role Phone Lashell Riddle Primary Care Provider Encounter Details Date Type Department Care Team (Late st Contact Info) Description 12/02/2020 Telephone [facility] Ob[facility]ne[facility] [address] [place] [address] Sahra Evangelista MA Social History Tobacco Use Types Packs/Day [...] encounter Miscellaneous Notes * Telephone Encounter - Sahra Evangelista MA - 12/02/2020 3:44 PM EDT Called patient regarding previous record sent from lashell riddle's office regarding her TIA . Our provider would like to see her in office to go over . Patient stated she transferred offices due to Dr. Beverly retidanae. I advised I would update chart that she transferred. documented in this encounter Plan of Treatment Upcoming Encounters Date Type Department Care Team (Late st Contact Info) Description 10/04/2024 8:00 AM EDT Office Visit [facility] Cardiology [address] [place] [address] Delon Pedersen MD [address] [place] [address] documented as of this encounter Visit Diagnoses Not on filedocumented in this encounter Care Teams Veterans Employment Representative Relationship Specialty Start Date End Date Lashell Riddle APRN-MEAGAN PCP - General Family Medicine 01/22/21 documented as of this encounter
--- OUTSIDE RECORDS SUMMARY | 2024-07-05 20:02 | XMS_ITS | Encounter Summary ---
Author [id number] [address] [place] [address] Care Team Providers Care Medicine Teacher Name Role Phone Lashell Moeller LINTER DRIER OPERATOR-[facility] Primary Care Provider [phone] Reason for Visit * Reason Onset Date Comments PT Discharge 04/05/2020 Encounter Details Date Type Department Care Team (Late st Contact Info) Description 04/05/2020 Telephone [facility] Cardiology [address] [place] [address] [facility] [address] [place] [address] PT Discharge Social History Tobacco Use Types Packs/Day Years Used Date Smoking Tobacco: Every Day Cigarettes 0.5 10 Smokeless Tobacco: Never Alcohol Use Standard Drinks/Week [...] have Coronavirus / COVID-19? 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 Maintained on Eliquis. Patient needs follow- up with electrophysiology as an outpatient. Ideally see Dr. Johnson in [place]. However, if she can be seen sooner by Dr. Johnson at [place], patient would be okay with this. Thank you * Telephone Encounter - Alex Griggs - 04/05/2020 12:51 PM EST mb full unable to lv msg to [facility] documented in this encounter Plan of Treatment Upcoming Encounters Date Type Department Care Team (Late st Contact Info) Description 10/04/2024 8:00 AM EDT Office Visit [facility] [address] [place] [address] Delon Pedersen MD [address] [place] [address] documented as of this encounter Visit Diagnoses Not on filedocumented in this encounter Care Teams Medicine Teacher Relationship Specialty Start Date End Date Lashell Moeller APRN-CNP PCP - General Family Medicine 01/22/21 documented as of this encounter
--- OUTSIDE RECORDS SUMMARY | 2024-07-05 20:02 | XMS_ITS | Encounter Summary ---
Author Organization [facility] Address [address] [place] [address] Care Team Providers Care Regulatory Affairs Director Name Role Phone Lashell Moeller MD Primary Care Provider [phone] Encounter Details Date Type Department Care Team (Late st Contact Info) Description 04/30/2023 Abstract [facility] [address] [place] [address] Juan Lazo, DO [address] [place] [address] Social History Tobacco Use Types Packs/Day Years [...] on filedocumented in this encounter Care Teams Regulatory Affairs Director Relationship Specialty Start Date End Date Lashell Moeller MD [address] [place] [address] PCP - General Family Medicine 03/03/23 documented as of this encounter
--- OUTSIDE RECORDS SUMMARY | 2024-07-05 20:06 | XMS_ITS | CCD ---
Author Organization [facility] Care Team Providers Care Applications Coordinator Name Role Phone DELON DE LA CRUZ Attending Unavailable DELON DE LA RCUZ Consulting Unavailable DELON DE LA CRUZ Admitting Unavailable ZANE CHERYL Consulting Unavailable ADILIA PEREZ Attending Unavailable ADILIA PEREZ Consulting Unavailable ADILIA PEREZ Admitting Unavailable OSMAR FLORES Primary Care Unavailable Suzi Gunn Consulting Unavailable MD Trevno Pruitt Attending Provider RHEA MORENO Attending Unavailable SAJAN, LASHELL Referring Unavailable SAJAN, LASHELL Primary Care Unavailable Juan Lazo Attending Provider Sajan Lashell WOMACK Primary Care Provider Sajan PAPER REWINDER-MANAGER OF TRANSPORTATION, Lashell Primary Care Provider [phone] Sajan PAPER REWINDER-MANAGER OF TRANSPORTATION, Lashell Primary Care Provider Sajan PAPER REWINDER-MANAGER OF TRANSPORTATION, Lashell Primary Care Provider DELON PEDERSEN Attending Unavailable SAJAN, LASHELL Referring Unavailable SAJAN, LASHELL Primary Care Unavailable SAJAN, LASHELL Primary Care Unavailable ISELA NOLASCO Attending Unavailable HARESH HUIZAR Attending Unavailable SAJAN, LASHELL Referring Unavailable SAJAN, LASHELL Primary Care Unavailable Brody Walton DO Attending Provider Unavailab uJan Meadows DO Attending Provider Sajan CASTING CLEANER-C, Lashell A Attending Unavailable Sajan CASTING CLEANER-C, Lashell A Primary Care Unavailable Juan Lazo Attending Unavailable Juan Lazo Admitting Unavailable Brody Walton Attending Unavailable Brody Walton Admitting Unavailable ROXY JUNIOR Attending Unavailable ROXY JUNIOR Attending Unavailable JUAN LAZO Attending Unavailable JUAN LAZO Attending Unavailable DUC BOGGS Attending Unavailable ROXY JUNIOR Attending Unavailable Allergies Allergy Classification Reported Allergen(s) Allergy Type Date of Onset Reaction(s) Facility (19 sources) Sulfamethoxazole Allergy to substance 03-03-19 [facility] (19 sources) Trimethoprim Drug Allergy 03-03-19 [facility] (1 source) No Known Medication Allergies; Translations: [No Known Medication Allergies] Propensity to adverse reactions to drug (disorder) [facility] Repository Medications Current Medications Medication Drug Class(es) Dates Sig (Normalized) Sig (Original) acetaminophen 32 mg/ml oral solution (20 sources) Start: 02-17-2023 acetaminophen (Tylenol) 160 MG/5ML liquid 02/17/2023 Active Start: 07-27-2018 acetaminophen (TYLENOL) tablet 650 mg apixaban 5 mg oral tablet (20 sources) Factor Xa Inhibitor Start: 06-01-2023 End: 03-29-2024 take 1 tablet by mouth twice daily at bedtime apixaban (ELIQUIS) 5 mg tablet Indications: Atrial flutter, unspecified type ([facility]) TAKE 1 TABLET BY MOUTH TWICE A DAY (MORNING AND BEFORE BEDTIME) 90 tablet 3 03/29/2024 Active Start: 11-30-2022 End: 06-01-2023 take 1 tablet by mouth once daily at bedtime apixaban (Eliquis) 5 MG tablet TAKE ONE TABLET BY MOUTH EVERY MORNING AND BEFORE BEDTIME 11/30/2022 Active cetirizine hydrochloride 10 mg oral tablet (19 sources) Histamine-1 Receptor Antagonist Start: 02-15-2023 cetirizine [...] days. 20 tablet 03/23/2024 04/02/2024 Active levonorgestrel 0.717959 mg/hr intrauterine system (17 sources) Progestin, Progestin-containin [...] oral tablet (20 sources) beta-Adrenergic Yung Start: 08-10-2022 End: 03-29-2024 take 1 tablet by mouth every twenty-four hours in the morning metoprolol succinate XL (Toprol-XL) 25 MG 24 hr tablet Take 25 mg by mouth in the morning. 08/10/2022 Active traMADol hydrochloride 50 mg oral tablet (12 sources) Opioid Agonist take 1 tablet by [...] other than malignant neoplasm] 01-20-2024 Episodic Other aftercare (2 sources) Surgical follow-up; Translations: [Encounter for follow-up examination after completed treatment for conditions other than malignant neoplasm] 05-31-2024 Episodic Other circulatory disease (13 sources) History of cardiovascular surgery; Translations: [Presence [...] dependence, cigarettes, uncomplicated] Onset: 03-26-2020 Chronic Syncope (16 sources) Syncope and collapse; Translations: [Near syncope] Onset: 06-22-2017 06-22-2017 Episodic Transient cerebral ischemia (1 source) Transient [...] 05-15-2019 Episodic Other and unspecified benign neoplasm (13 sources) Lipoma of back; Translations: [Benign lipomatous neoplasm of skin and subcutaneous tissue of trunk] Onset: 08-08-2018 08-08-2018 Episodic Other lower respiratory disease (4 sources) Shortness of breath; Translations: [SHORTNESS OF BREATH] Onset: 05-11-2019 Episodic Other lower respiratory disease (13 sources) Dyspnea; Translations: [Shortness of breath] Onset: 06-24-2017 06-24-2017 Episodic Other lower respiratory disease (1 source) Shortness of breath Onset: 08-18-2023 Episodic Other skin disorders (13 sources) Mass of subcutaneous tissue of back; Translations: [Localized swelling, mass and lump, trunk] Onset: 06-21-2018 06-21-2018 Episodic Urinary tract infections (13 sources) Pyelonephritis; Translations: [Tubulo-interstitia l nephritis, not specified as acute or chronic] Onset: 04-02-2020 04-02-2020 Episodic Results Test Name Value Interpretation Reference Range Facility Outside Recordson 05-15-2024 Outside Records [id number]# [facility] CBC WITH AUTO DIFFon BASOPHILS ABSOLUTE AUTO 0.1 [facility] Basophils/100 WBC (Bld) 0.6 % 0.2 - 2.0 % [facility] Eosinophils/100 WBC (Bld) 2 % 0.9 - 7.0 % [facility] Erythrocyte distribution width (RBC) [Ratio] 12.2 % 11.0 - 15.0 % [facility] Hematocrit (Bld) [Volume fraction] 42.4 % 36.0 - 48.0 % [facility] Hemoglobin (Bld) [Mass/Vol] 14.5 g/dL 12.0 - 16.0 g/dL [facility] IMMATURE GRANULOCYTES ABS AUTO 0.03 [facility] Immature granulocytes/100 WBC (Bld) 0.3 % 0.0 - 0.5 % [facility] Interpretation and review of laboratory results Abnormal Located within [facility] re LYMPHOCYTES ABSOLUTE AUTO 3.1 [facility] Lymphocytes/100 WBC (Bld) 30.2 % 20.5 - 60.0 % [facility] MCH (RBC) [Entitic mass] 30 pg 26.7 - 34.0 pg [facility] MCHC (RBC) [Mass/Vol] 34.2 g/dL 29.9 - 35.2 g/dL [facility] MCV (RBC) [Entitic vol] 87.6 fL 81.0 - 99.0 fL [facility] MONOCYTES ABSOLUTE AUTO 0.6 [facility] Monocytes/100 WBC (Bld) 6.3 % 1.7 - 12.0 % [facility] NEUTROPHILS ABSOLUTE AUTO 6.2 [facility] Neutrophils/100 WBC (Bld) 60.6 % 43.0 - 75.0 % [facility] Platelet mean volume (Bld) [Entitic vol] 8.5 fL Low 9.5 - 13.5 fL [facility] TBH EO # 0.2 [facility] PLT 312 [facility] TB RBC 4.84 [facility] WBC 10.2 [facility] Abner 05-12-2024 L - -------- Specimen: [id number] Received: 05/15/24 Status: SALIMA Pineda Num: [id number] Spec Type: Surgical Subm Dr: Juan Lazo Tissues: A Endometrium - Curettings (ENDOMETRIAL CURRETTINGS) Procedures: HE/2, Gross/Micro L4 -------- Age/ Patient Sex Location Account Attending Physician -------- Scott Hooker 39/F LABELL [id number] Juan Lazo -------- SPEC NUM: [id number] RECD: 05/15/24 STATUS: SALIMA PINEDA NUM: [id number] CRISTINA: 05/12/[address] [facility] [address]: Juan Lazo ENTERED: 05/15/[address]: Bradley Fong SPEC TYPE: Surgical DEPT: JEFF GIRON ENTERED BY: [id number] RECV BY: [id number] ORDERED: HE/2, Gross/Micro L4 ORDERED: HE/2, Gross/Micro L4 Pathological Diagnosis Endometrium, curettage: Features suggestive of endometrial polyp. Clinical Information Endometriosis, endometrial implants Gross Description Part A is received in formalin labeled with the patients name, date of , and endometrial curettings are adams-pink to red-brown, delicate tissue fragments, 1 x 0.8 x 0.2 cm in aggregate. The specimen is filtered and entirely submitted in a single cassette. (1, ns, [id number]) CPT Codes 35776 -------- -------- Specimen: [id number] Received: 05/15/24 Status: SALIMA Pineda Num: [id number] Spec Type: Surgical Subm Dr: Juan Lazo Tissues: A Endometrium - Curettings (ENDOMETRIAL CURRETTINGS) Procedures: Shaina OCAMPO/James L4 -------- Patient: Scott Hooker [id number] (Continued) -------- Signed (signature on file) Micheal Napier MD 05/16/24 1547 Normal [facility] Urine Cultureon 04-30-2024 Bacteria identified Cx Nom (U) <9,000 colonies/ml mixed bacterial skin contaminants 2 Days PERFORMED BY: [place] [address] PATHOLOGIST DIRECTOR TRADING MICHEAL NAPIER M.D. Normal [facility] Comment on above: Performed By: #### C UU #### [address] Urine cultureOrdered By: Juan Walton on 04-30-2024 Bacteria identified Cx Nom (U) Urine culture [facility] US PELVIC COMPLETE W/ TVon 0 04-19-2024 [...] report is generated using voice recognition reporting (HipLink). On occasion EarDishe erroneously drops words from the report or replaces the spoken word with similar sounding words. Please call with any questions/concerns regarding this report.* Dictated and transcribed 04/19/24/herbie This report has been electronically signed and approved by the interpreting radiologist. Normal Not Available Comment on above: Order Comment: US PE LVIS-TRANSVAG IF INDICATED No LMP recorded. Patient has had an ablation. Outside Recordson 03-30-2024 Outside Records [id number]#1 .00OTGTIFF [facility] POCT EKGon 03-29-2024 [facility] Outside Recordson 03-28-2024 Outside Records [id number]#1 .[facility] RECURRENT VAGINITIS (HTRX)on 03-24-2024 ATOPOBIUM VAGINAE 0 [facility] ATOPOBIUM VAGINAE Not detected [facility] BVAB 2,3 (BACTERIAL VAGINOSIS ASSOCIATED BACTERIA 2, 3); MOBILUNCUS SPP 0 [facility] BVAB 2,3 (BACTERIAL VAGINOSIS ASSOCIATED BACTERIA 2, 3); MOBILUNCUS SPP Not detected [facility] MAMI ALBICANS, PARAPSILOSIS, TROPICALIS 0 [facility] MAMI ALBICANS, PARAPSILOSIS, TROPICALIS Not detected [facility] GLAB[facility]ATA Not detected [facility] MAMI KRUSEI 0 [facility] MAMI KRUSEI Not detected [facility]care CHLAMYDIA TRACHOMATIS 0 [facility] CHLAMYDIA TRACHOMATIS Not detected [facility] GARDNERELLA VAGINALIS 0 [facility] GARDNERELLA VAGINALIS Not detected [facility] MEGASPHAERA (TYPES 1, 2) 0 [facility] MEGASPHAERA (TYPES 1, 2) Not detected [facility] MYCOPLASMA GENITALIUM 0 [facility] MYCOPLASMA GENITALIUM Not detected [facility] NEISSERIA GONORRHOEAE 0 [facility] NEISSERIA GONORRHOEAE Not detected [facility] TRICHOMONAS VAGINALIS 0 [facility] TRICHOMONAS VAGINALIS Not detected [facility] ALL CBC WITH AUTO DIFFon BASOPHILS ABSOLUTE AUTO 0.1 [facility] Basophils/100 WBC (Bld) 0.5 % 0.2 - 2.0 % [facility] Eosinophils/100 WBC (Bld) 1.6 % 0.9 - 7.0 % [facility] Erythrocyte distribution width (RBC) [Ratio] 12.1 % 11.0 - 15.0 % [facility] Hematocrit (Bld) [Volume fraction] 40.9 % 36.0 - 48.0 % [facility] Hemoglobin (Bld) [Mass/Vol] 14 g/dL 12.0 - 16.0 g/dL [facility] IMMATURE GRANULOCYTES ABS AUTO 0.04 [facility] Immature granulocytes/100 WBC (Bld) 0.4 % 0.0 - 0.5 % [facility] Interpretation and review of laboratory results Abnormal [facility] LYMPHOCYTES ABSOLUTE AUTO 3.6 [facility] Lymphocytes/100 WBC (Bld) 34.6 % 20.5 - 60.0 % [facility] MCH (RBC) [Entitic mass] 30.6 pg 26.7 - 34.0 pg [facility] MCHC (RBC) [Mass/Vol] 34.2 g/dL 29.9 - 35.2 g/dL [facility] MCV (RBC) [Entitic vol] 89.5 fL 81.0 - 99.0 fL [facility] MONOCYTES ABSOLUTE AUTO 0.6 [facility] Monocytes/100 WBC (Bld) 5.9 % 1.7 - 12.0 % [facility] NEUTROPHILS ABSOLUTE AUTO 5.9 [facility] Neutrophils/100 WBC (Bld) 57 % 43.0 - 75.0 % [facility] Platelet mean volume (Bld) [Entitic vol] 8.7 fL Low 9.5 - 13.5 fL [facility] TBH EO # 0.2 [facility] TB PLT 351 [facility] TB RBC 4.57 [facility] TBH WBC 10.3 [facility] Outside Recordson 02-03-2024 Outside Records [id number]# 1.00OTGTIFF [facility] CBC AND AUTO DIFFon 11-29-19 ABSOLUTE BASOPHIL 0.1 X10E9/L Normal 0.0-0.2 [facility] Comment on above: Performed By: #### C BCA, CMP #### [facility] ([id number]) [address] [place] [address]257 ABSOLUTE NEUTROPHIL 4.6 X10E9/L Normal 1.5-6.6 [facility] Comment on above: Performed By: #### C HINA, CMP #### [facility] ([id number]) [address] [place] [address] 90426 Basophils/100 WBC (Bld) 1.5 % Normal [facility] Comment on above: Performed By: #### C HINA, CMP #### [facility] ([id number]) [address] [place] [address] 27128 Eosinophils (Bld) [#/Vol] 0.2 10*3/uL Normal 0.0-0.4 [facility] Comment on above: Performed By: #### C HINA, CMP #### [facility] ([id number]) [address] [place] [address] 05117 Eosinophils/100 WBC (Bld) 2.1 % Normal [facility] Comment on above: Performed By: #### C HINA, CMP #### [facility] ([id number]) [address] [place] [address] 11598 Erythrocyte distribution width (RBC) [Ratio] 13.1 % Normal 11.5-15.0 [facility] Comment on above: Performed By: #### C HINA, CMP #### [facility] ([id number]) [address] [place] [address] 08248 Hematocrit (Bld) [Volume fraction] 41.7 % Normal 35-47 [facility] Comment on above: Performed By: #### C HINA, CMP #### [facility] ([id number]) [address] [place] [address] 11180 Hemoglobin (Bld) [Mass/Vol] 14.2 g/dL Normal 11.7-15.5 [facility] Comment on above: Performed By: #### C HINA, CMP #### [facility] ([id number]) [address] [place] [address] 84121 Lymphocytes (Bld) [#/Vol] 4.1 10*3/uL High 1.0-3.5 [facility] Comment on above: Performed By: #### C BCA, CMP #### [facility] ([id number]) [address] [place] [address] 09029 Lymphocytes/100 WBC (Bld) 42.0 % Normal [facility] Comment on above: Performed By: #### C BCA, CMP #### [facility] ([id number]) [address] [place] [address] 00110 MCH (RBC) [Entitic mass] 30.2 pg Normal 27-34 [facility] Comment on above: Performed By: #### C HINA, CMP #### [facility] ([id number]) [address] [place] [address] 46767 MCHC (RBC) [Mass/Vol] 34.1 g/dL Normal 32-36 [facility] Comment on above: Performed By: #### C BCA, CMP #### [facility] ([id number]) [address] [place] [address] 24119 MCV (RBC) [Entitic vol] 89 fL Normal 80-100 [facility] Comment on above: Performed By: #### C BCA, CMP #### [facility] ([id number]) [address] [place] [address] 99778 Monocytes (Bld) [#/Vol] 0.7 10*3/uL Normal 0-0.9 [facility] Comment on above: Performed By: #### C BCA, CMP #### [facility] ([id number]) [address] [place] [address] 03635 Monocytes/100 WBC (Bld) 7.3 % Normal [facility] Comment on above: Performed By: #### C BCA, CMP #### [facility] ([id number]) [address] [place] [address] 37385 Neutrophils/100 WBC (Bld) 47.1 % Normal [facility] Comment on above: Performed By: #### C BCA, CMP #### [facility] ([id number]) [address] [place] [address] 44673 Platelet mean volume (Bld) [Entitic vol] 6.5 fL Low 7-12 [facility] Comment on above: Performed By: #### C HINA, CMP #### [facility] ([id number]) [address] [place] [address] 03547 Platelets (Bld) [#/Vol] 367 10*3/uL Normal 150-450 [facility] Comment on above: Performed By: #### C HINA, CMP #### [facility] ([id number]) [address] [place] [address] 03144 RBC COUNT 4.71 X10E12/L Normal 3.80-5.20 [facility] Comment on above: Performed By: #### C BCA, CMP #### [facility] ([id number]) [address] [place] [address] 36513 WBC (Bld) [#/Vol] 9.8 10*3/uL Normal 4.0-11.0 [facility] Comment on above: Performed By: #### C BCA, CMP #### [facility] ([id number]) [address] [place] [address] 93048 COMPREHENSIVE METABOLIC PANE Abner 11-29-2023 Albumin [Mass/Vol] 4.0 g/dL Normal 3.2-5.3 [facility] Comment on above: Performed By: #### C BCA, CMP #### [facility] ([id number]) [address] [place] [address] ALP [Catalytic activity/Vol] 66 U/L Normal 39-130 [facility] Comment on above: Performed By: #### C BCA, CMP #### [facility] ([id number]) [address] [place] [address] 27264 ALT [Catalytic activity/Vol] 19 U/L Normal 0-31 [facility] Comment on above: Performed By: #### C BCA, CMP #### [facility] ([id number]) [address] [place] [address] 60803 Anion gap [Moles/Vol] 10 mmol/L Normal 5-15 [facility] Comment on above: Performed By: #### C BCA, CMP #### [facility] ([id number]) [address] [place] [address] 80368 AST [Catalytic activity/Vol] 19 U/L Normal 0-41 [facility] Comment on above: Performed By: #### C BCA, CMP #### [facility] ([id number]) [address] [place] [address] 88902 Bilirubin [Mass/Vol] 0.4 mg/dL Normal 0.3-1.2 [facility] Comment on above: Performed By: #### C BCA, CMP #### [facility] ([id number]) [address] [place] [address] 97747 Calcium [Mass/Vol] 9.3 mg/dL Normal 8.5-10.5 [facility] Comment on above: Performed By: #### C BCA, CMP #### [facility] ([id number]) [address] [place] [address] 97646 Chloride [Moles/Vol] 101 mmol/L Normal 98-109 [facility] Comment on above: Performed By: #### C BCA, CMP #### [facility] ([id number]) [address] [place] [address] 02739 CO2 [Moles/Vol] 27 mmol/L Normal 22-32 [facility] Comment on above: Performed By: #### C HINA, CMP #### [facility] ([id number]) [address] [place] [address] 49268 Creatinine [Mass/Vol] 0.80 mg/dL Normal 0.40-1.00 [facility] Comment on above: Result Comment: METH OD TRACEABLE TO IDMS STANDARD Performed By: #### C HINA, CMP #### [facility] ([id number]) [address] [place] [address] 05003 eGFR (CKD-EPI) NON-RACE DEPENDENT >90 Normal >59 [facility] Comment on above: Result Comment: Reported eGFR is based on the CKD-EPI 2020 equation that does not use a race coefficient. Performed By: #### C HINA, CMP #### [facility] ([id number]) [address] [place] [address] 90763 Glucose [Mass/Vol] 96 mg/dL Normal 65-99 [facility] Comment on above: Performed By: #### C HINA, CMP #### [facility] ([id number]) [address] [place] [address] 63747 Potassium [Moles/Vol] 3.5 mmol/L Normal 3.5-5.0 [facility] Comment on above: Performed By: #### C BCA, CMP #### [facility] ([id number]) [address] [place] [address] 91437 Protein [Mass/Vol] 7.3 g/dL Normal 6.0-8.0 [facility] Comment on above: Performed By: #### C BCA, CMP #### [facility] ([id number]) [address] [place] [address] 77135 Sodium [Moles/Vol] 138 mmol/L Normal 134-146 [facility] Comment on above: Performed By: #### C BCA, CMP #### [facility] ([id number]) [address] [place] [address] 39187 Urea nitrogen [Mass/Vol] 16 mg/dL Normal 06-30 [facility] Comment on above: Performed By: #### C BCA, CMP #### [facility] ([id number]) [address] [place] [address] ABDOMEN AND PELVIS W CONT on [...] Hwang MD on 11/29/2023 8:52 PM Normal [facility] HCG ( test) Ql (U)o n 11-29-2023 Beta HCG ( test) Ql (U) Negative Normal NEG [facility] Comment on above: Performed By: #### 2 106-3 #### [facility] ([id number]) [address] [place] [address] 36143 URN MACROSCOPIC NURon 2023 BILIRUBIN TARIK Negative Normal NEG [facility] Comment on above: Performed By: #### N UM #### [facility] ([id number]) [address] [place] [address], [place] [address] BLOOD/HGB TARIK Trace Abnormal NEG [facility] Comment on above: Performed By: #### N UM #### [facility] ([id number]) [address] [place] [address], [place] [address] GLUCOSE TARIK Negative Normal NEG [facility] Comment on above: Performed By: #### N UM #### [facility] ([id number]) [address] [place] [address], [place] [address] KETONES TARIK Negative Normal NEG [facility] Comment on above: Performed By: #### N UM #### [facility] ([id number]) [address] [place] [address] [place] [address] LEUKOCYTE ESTERASE TARIK Negative Normal NEG [facility] Comment on above: Performed By: #### N UM #### [facility] ([id number]) [address] [place] [address] [place] [address] NITRITE TARIK Negative Normal NEG [facility] Comment on above: Performed By: #### N UM #### [facility] ([id number]) [address] [place] [address], [place] [address] PH TARIK 7.0 Normal 5.0-8.5 [facility] Comment on above: Performed By: #### N UM #### [facility] ([id number]) [address] [place] [address], [place] [address] PROTEIN TARIK Negative Normal NEG [facility] Comment on above: Performed By: #### N UM #### [facility] ([id number]) [address] [place] [address] [place] [address] SPECIFIC GRAVITY TARIK 1.025 Normal 1.003-1.035 [facility] Comment on above: Performed By: #### N UM #### [facility] ([id number]) [address] [facility] [place] [address] UROBILINOGEN TARIK 0.2 eu/dL Normal <1.1 [facility] Comment on above: Performed By: #### N UM #### [facility] ([id number]) [address] [facility], [place] [address] Outside Recordson 09-01-2023 Outside Records [id number]# 1.00OTGTIFF Normal [facility] POCT EKGOrdered By: Keily Herrera on 04-15-2023 [facility] CBC AUTO DIFFon 03-23-2020 Basophils (Bld) [#/Vol] 0.1 103/ul Normal 0.0-0.1 [facility] Comment on above: Performed By: #### C BC #### [facility] [address] [place], [place] [id number] Akin Aysha Basophils/100 WBC (Bld) 0.6 % Normal 0.2-2.0 [facility] Comment on above: Performed By: #### C BC #### [facility] [address] [place], [place] [id number] Akin Aysha Eosinophils (Bld) [#/Vol] 0.2 103/ul Normal 0.0-0.7 [facility] Comment on above: Performed By: #### C BC #### [facility] [address] [place], [place] [id number] Akin Aysha Eosinophils/100 WBC (Bld) 2.3 % Normal 0.9-7.0 [facility] Comment on above: Performed By: #### C BC #### [facility] [facility] [address] [id number] Akin Aysha Erythrocyte distribution width (RBC) [Ratio] 12.2 % Normal 11.0-15.0 [facility] Comment on above: Performed By: #### C BC #### [facility] [address] [id number] Akin Aysha Hematocrit (Bld) [Volume fraction] 43.4 % Normal 36.0-48.0 [facility] Comment on above: Performed By: #### C BC #### [facility] [address] [place], [place] [id number] Akin Aysha Hemoglobin (Bld) [Mass/Vol] 14.4 g/dL Normal 12.0-16.0 [facility] Comment on above: Performed By: #### C BC #### [facility] [address] [place], [place] [id number] Akin Aysha IG # 0.03 10e3/ul Normal 0.00-0.03 [facility] Comment on above: Performed By: #### C BC #### [facility] [address] [place] [address] Akin Aysha IG % 0.3 % Normal 0.0-0.5 [facility] Comment on above: Performed By: #### C BC #### [facility] [address] [place] [address] Akin Aysha Lymphocytes (Bld) [#/Vol] 3.8 103/ul Normal 1.2-3.8 [facility] Comment on above: Performed By: #### C BC #### [facility] [address] [place], [place] [id number] Akin Aysha Lymphocytes/100 WBC (Bld) 37.3 % Normal 20.5-60.0 [facility] Comment on above: Performed By: #### C BC #### [facility] [address] [place], [place] [id number] Akinenio Olmstead MANUAL DIFF REQ NO Normal [facility] Comment on above: Performed By: #### C BC #### [facility] [address] [place], [place] [id number] Akin Aysha MCH (RBC) [Entitic mass] 30.9 pg Normal 26.7-34.0 [facility] Comment on above: Performed By: #### C BC #### [facility] [address] [place] [address] Akin Aysha MCHC (RBC) [Mass/Vol] 33.2 g/dL Normal 29.9-35.2 [facility] Comment on above: Performed By: #### C BC #### [facility] [address] [place], [place] [address] Akin Aysha MCV (RBC) [Entitic vol] 93.1 fL Normal 81.0-99.0 [facility] Comment on above: Performed By: #### C BC #### [facility] [address] [place], [place] [address] Akin Aysha Monocytes (Bld) [#/Vol] 0.9 103/ul Critically high 0.3-0.8 [facility] Comment on above: Performed By: #### C BC #### [facility] [address] [place], [place] [address] Akin Aysha Monocytes/100 WBC (Bld) 8.7 % Normal 1.7-12.0 [facility] Comment on above: Performed By: #### C BC #### [facility] [address] [place], [place] [address] Akin Aysha Neutrophils (Bld) [#/Vol] 5.2 103/ul Normal 1.4-6.5 [facility] Comment on above: Performed By: #### C BC #### [facility] [address] [place] [address] Akin Aysha Neutrophils/100 WBC (Bld) 50.8 % Normal 43.0-75.0 [facility] Comment on above: Performed By: #### C BC #### [facility] [address] [place] [address] Akin Aysha Platelet mean volume (Bld) [Entitic vol] 8.6 fL Critically low 9.5-13.5 [facility] Comment on above: Performed By: #### C BC #### [facility] [address] [place], [place] [address] Akin Aysha Platelets (Bld) [#/Vol] 347 103/ul Normal 150-450 [facility] Comment on above: Performed By: #### C BC #### [facility] [address] [place], [place] [address] Akin Aysha RBC (Bld) [#/Vol] 4.66 106/ul Normal 4.20-5.40 [facility] Comment on above: Performed By: #### C BC #### [facility] [address] [place], [place] [address] Akin Olmstead WBC (Bld) [#/Vol] 10.2 103/ul Normal 4.0-11.0 [facility] Comment on above: Performed By: #### C BC #### [facility] [address] [place], [place] [address] STROKE HEAD WOon 03-23-19 [...] by: SUZI GUNN Date: 2020-03-22 23:46 Normal [facility] CTA HEAD WO W CONon 03-23-19 21 CTA HEAD WO W CON EXAM: CTA HEAD WO W CON 03/22/2020 11:04 PM EST [id number] CLINICAL STATEMENT: Dysarthria COMPARISON: No prior studies are available at the time of dictation. TECHNIQUE: Routine [place]/brain CT angiogram protocol was performed following 75 cc Omnipaque 350 of intravenous contrast. AEC is utilized. 2-D and 3D reconstructions were reviewed. FINDINGS: There is no evidence for intracranial aneurysm and/or high-grade stenosis of the [place]. The vertebrobasilar artery is patent [...] Date: 2020-03-23 00:52 Normal [facility] CTA NECK WO W CONon 03-23-19 [...] SUZI SAID Date: 2020-03-23 00:54 Normal [facility] CULTURE URINEon 03-23-2020 CULTURE URINE Culture Observations : NO GROWTH Normal [facility] Comment on above: Performed By: #### I NFLUAB #### [facility] [address] [address] Akin Olmstead DRUG SCREEN RAPID (URINE)on 03-23-2020 AMP Negative Normal NEGATIVE [facility] Comment on above: Performed By: #### U MICRO, DRUGRPD, ERUR #### [facility] [address] [id number] Akin Olmstead BAR Negative Normal NEGATIVE [facility] Comment on above: Performed By: #### U MICRO, DRUGRPD, ERUR #### [facility] [address] [place] [address] Akin Aysha BUP Negative Normal NEGATIVE [facility] Comment on above: Performed By: #### U MICRO, DRUGRPD, ERUR #### [facility] [address] [place] [address] Akin Aysha BZO Negative Normal NEGATIVE [facility] Comment on above: Performed By: #### U MICRO, DRUGRPD, ERUR #### [facility] [address] [place] [address] Akin Aysha JESUS Negative Normal NEGATIVE [facility] Comment on above: Performed By: #### U MICRO, DRUGRPD, ERUR #### [facility] [address] [place] [address] Akin Aysha CUT-OFFS SEE BELOW Normal [facility] Comment on above: Result Comment: AMP (Amphetamine): [...] U MICRO, DRUGRPD, ERUR #### [facility] [address] [place] [address] Akin Aysha DRUG CUT HEADER DRUG CLASS TEST SYSTEM CUT-OFF CONCENTRATIONS ARE FOLLOWS: Normal [facility] Comment on above: Performed By: #### U MICRO, DRUGRPD, ERUR #### [facility] [address] [place] [address] Akin Aysha mAMP Negative Normal NEGATIVE [facility] Comment on above: Performed By: #### U MICRO, DRUGRPD, ERUR #### [facility] [address] [address] Akin Aysha MTD Negative Normal NEGATIVE [facility] Comment on above: Performed By: #### U MICRO, DRUGRPD, ERUR #### [facility] [address] [place] [address] Akin Aysha OPI Negative Normal NEGATIVE [facility] Comment on above: Performed By: #### U MICRO, DRUGRPD, ERUR #### [facility] [address] [place] [address] Akin Aysha OXY Negative Normal NEGATIVE [facility] Comment on above: Performed By: #### U MICRO, DRUGRPD, ERUR #### [facility] [address] [place] [address] Akin Aysha PCP Negative Normal NEGATIVE [facility] Comment on above: Performed By: #### U MICRO, DRUGRPD, ERUR #### [facility] [address] [place] [address] Akin Aysha PPX Negative Normal NEGATIVE [facility] Comment on above: Performed By: #### U MICRO, DRUGRPD, ERUR #### [facility] [address] [place] [address] Akin Aysha TCA Negative Normal NEGATIVE [facility] Comment on above: Performed By: #### U MICRO, DRUGRPD, ERUR #### [facility] [address] [place] [address] Akin Aysha THC Positive Abnormal NEGATIVE [facility] Comment on above: Performed By: #### U MICRO, DRUGRPD, ERUR #### [facility] [address] [place] [address] Akin Aysha ER URINE PROFILEon 1 Bilirubin [Mass/Vol] Negative Normal NEGATIVE [facility] Comment on above: Performed By: #### U MICRO, DRUGRPD, ERUR #### [facility] [address] [place] [address] Akin Aysha BLOOD TRACE-INTACT Abnormal NEGATIVE [facility] Comment on above: Performed By: #### U MICRO, DRUGRPD, ERUR #### [facility] [address] [place] [address] Akin Aysha Clarity (U) CLEAR Normal CLEAR [facility] Comment on above: Performed By: #### U MICRO, DRUGRPD, ERUR #### [facility] [address] [place] [address] Akin Aysha Color (U) YELLOW Normal YELLOW [facility] Comment on above: Performed By: #### U MICRO, DRUGRPD, ERUR #### [facility] [address] [place] [address] Akin Aysha ERUAHD A micrscopic examination will be performed if indicated. Normal [facility] Comment on above: Performed By: #### U MICRO, DRUGRPD, ERUR #### [facility] [address] [place] [address] Akin Aysha Glucose [Mass/Vol] Negative Normal NEGATIVE [facility] Comment on above: Performed By: #### U MICRO, DRUGRPD, ERUR #### [facility] [address] [place] [address] Akin Aysha Ketones Ql (U) Negative Normal NEGATIVE [facility] Comment on above: Performed By: #### U MICRO, DRUGRPD, ERUR #### [facility] [address] [place] [address] Akin Aysha Nitrite Ql (U) Negative Normal NEGATIVE [facility] Comment on above: Performed By: #### U MICRO, DRUGRPD, ERUR #### [facility] [address] [place] [address] Akin Aysha pH (Bld) 5.5 Normal 5-9 [facility] Comment on above: Performed By: #### U MICRO, DRUGRPD, ERUR #### [facility] [address] [place] [address] Akin Aysha Protein (U) [Mass/Vol] Negative Normal NEGATIVE/ TRACE [facility] Comment on above: Performed By: #### U MICRO, DRUGRPD, ERUR #### [facility] [address] [place] [address] Akin Aysha SPEC GRAVITY 1.025 Normal 1.005-<=1.025 [facility] Comment on above: Performed By: #### U MICRO, DRUGRPD, ERUR #### [facility] [address] [place] [address] Akin Olmstead UR MICRO IND INDICATED Normal [facility] Comment on above: Performed By: #### U MICRO, DRUGRPD, ERUR #### [facility] [address] [place] [address] Akin Olmstead Urobilinogen Qn (U) 0.2 EU/dl Normal 0.2 - 1.0 [facility] Comment on above: Performed By: #### U MICRO, DRUGRPD, ERUR #### [facility] [address] [place] [address] Akin Olmstead WBC (Bld) [#/Vol] Negative Normal NEGATIVE [facility] Comment on above: Performed By: #### U MICRO, DRUGRPD, ERUR #### [facility] [address] [place] [address] Akin Olmstead POINT OF CARE GLUCOSEon 03-11 Glucose [Mass/Vol] 111 mg/dL Critically high 74-106 [facility] Comment on above: Performed By: #### P OCGLUC #### [facility] [address] [place] [address] Akin Olmstaed URon 03-23-2020 , QUAL Negative Normal NEGATIVE [facility] Comment on above: Performed By: #### P REGU #### [facility] [address] [place] [address] Akin Olmstead PROF 14(COMP METB)on 021 Albumin [Mass/Vol] 3.9 g/dL Normal 3.5-5.0 [facility] Comment on above: Performed By: #### C MOMO GONZALESTRCATAN #### [facility] [address] [place] [address] Akinenio Olmstead Albumin/Globulin [Mass ratio] 1.0 {ratio} Normal [facility] Comment on above: Performed By: #### C MP, HSTROPN #### [facility] [address] [place], [place] [address] Akin Aysha ALP [Catalytic activity/Vol] 43 U/L Normal 38-126 [facility] Comment on above: Performed By: #### C CHRISTIAN, HSTROPN #### [facility] [address] [place], [place] [address] Akin Aysha ALT [Catalytic activity/Vol] 29 U/L Normal 9-52 [facility] Comment on above: Performed By: #### C CHRISTIAN, HSTROPN #### [facility] [address] [place], [place] [address] Akin Aysha Anion gap [Moles/Vol] 13.1 mmol/L Normal [facility] Comment on above: Performed By: #### C CHRISTIAN, HSTROPN #### [facility] [address] [id number] Akin Aysha AST [Catalytic activity/Vol] 20 U/L Normal 14-36 [facility] Comment on above: Performed By: #### C CHRISTIAN, HSTROPN #### [facility] [address] [address] Akin Aysha Bilirubin Ql (U) 0.2 mg/dL Normal 0.2-1.3 [facility] Comment on above: Performed By: #### C CHRISTIAN, HSTROPN #### [facility] [address] [id number] Akin Aysha Calcium [Mass/Vol] 9.3 mg/dL Normal 8.4-10.2 [facility] Comment on above: Performed By: #### C CHRISTIAN, HSTROPN #### [facility] [address] [id number] Akin Aysha Chloride [Moles/Vol] 105 mmol/L Normal 98-107 [facility] Comment on above: Performed By: #### C CHRISTIAN, HSTROPN #### [facility] [address] [id number] Akin Aysha CO2 [Moles/Vol] 24.4 mmol/L Normal 22.0-30.0 [facility] Comment on above: Performed By: #### C MP, HSTROPN #### [facility] [address] [place], [place] [address] Akin Aysha Creatinine [Mass/Vol] 0.72 mg/dL Normal 0.52-1.04 [facility] Comment on above: Performed By: #### C MP, HSTROPN #### [facility] [address] [place], [place] [address] Akin Aysha EGFR-AF KUWAITI >60 Normal >=60 [facility] Comment on above: Performed By: #### C MP, HSTROPN #### [facility] [address] [place], [place] [address] Akin Aysha EGFR-NON AF [place]I >60 Normal >=60 [facility] Comment on above: Performed By: #### C MP, HSTROPN #### [facility] [address] [id number] Akin Aysha Globulin (S) [Mass/Vol] 3.8 g/dL Normal [facility] Comment on above: Performed By: #### C MP, HSTROPN #### [facility] [address] [place], [place] [address] Akin Aysha Glucose [Mass/Vol] 91 mg/dL Normal 74-106 [facility] Comment on above: Performed By: #### C MP, HSTROPN #### [facility] [address] [id number] Akin Aysha Potassium [Moles/Vol] 3.5 mmol/L Normal 3.4-5.0 [facility] Comment on above: Performed By: #### C MP, HSTROPN #### [facility] [address] [id number] Akin Aysha Protein [Mass/Vol] 7.7 g/dL Normal 6.1-8.2 [facility] Comment on above: Performed By: #### C MP, HSTROPN #### [facility] [address] [id number] Akin Aysha Sodium [Moles/Vol] 139 mmol/L Normal 137-145 [facility] Comment on above: Performed By: #### C CHRISTIAN, HSTROPN #### [facility] [address] [place] [address] Akin Aysha Urea nitrogen [Mass/Vol] 15.0 mg/dL Normal 7.0-17.0 [facility] Comment on above: Performed By: #### C CHRISTIAN, HSTROPN #### [facility] [address] [place] [address] Akin Aysha Urea nitrogen/Creatinine [Mass ratio] 20.8 mg/mg Normal [facility] Comment on above: Performed By: #### C CHRISTIAN, HSTROPN #### [facility] [address] [place] [address] Akin Aysha TROPONIN, HIGH SENSITIVITYon 03-23-2020 HSTROP 4.0 pg/mL Normal 4.0-35.5 [facility] Comment on above: Result Comment: CUT- OFF POINTS HAVE BEEN ESTABLISHED BASED ON THE FOURTH UNIVERSAL DEFINITIONS OF MYOCARDIAL INFARCTION. THE UPPER REFERENCE LIMIT (URL) OF TROPONIN, DEFINED THE 99TH PERCENTILE OF cTnI DISTRIBUTION IN A REFERENCE POPULATION, HAS BEEN CONFIRMED THE DECISION THRESHOLD FOR [place] DIAGNOSIS. Performed By: #### C CHRISTIAN, HSTROPN #### [facility] [address] [place] [address] Akin Aysha URINE MICROSCOPIC ONLYon Bacteria LM.HPF (Urine sed) [#/Area] MODERATE Abnormal NONE SEEN [facility] Comment on above: Performed By: #### I NFLUAB #### [facility] [address] [place] [address] Akin Aysha CAST NONE SEEN Normal NONE SEEN [facility] Comment on above: Performed By: #### I NFLUAB #### [facility] [address] [place] [address] Akin Aysha Crystals LM Nom (Urine sed) NONE SEEN Normal NONE SEEN [facility] Comment on above: Performed By: #### I NFLUAB #### [facility] [address] [place] [address] Akin Aysha CULTURE INDICATED Normal [facility] Comment on above: Performed By: #### I NFLUAB #### [facility] [address] [place] [id number] Akin Aysha Epithelial cells LM.HPF (Urine sed) [#/Area] FEW Abnormal NONE SEEN /RARE [facility] Comment on above: Performed By: #### I NFLUAB #### [facility] [address] [place] [address] Akin Aysha MUCOUS NONE SEEN Normal NONE SEEN [facility] Comment on above: Performed By: #### I NFLUAB #### [facility] [address] [place] [address] Akin Aysha RBC (U) [#/Vol] 0-2 Normal 0-2 [facility] Comment on above: Performed By: #### I NFLUAB #### [facility] [address] [place] [address] Akin Aysha WBC (Bld) [#/Vol] 2-5 Abnormal NONE SEEN [facility] Comment on above: Performed By: #### I NFLUAB #### [facility] [address] [place] [address] Akin Aysha CBC AUTO DIFFon 05-12-2019 Basophils (Bld) [#/Vol] 0.1 103/ul Normal 0.0-0.1 [facility] Comment on above: Performed By: #### C BC #### [facility] [address] [place] [address] Akin Aysha Basophils/100 WBC (Bld) 0.7 % Normal 0.2-2.0 [facility] Comment on above: Performed By: #### C BC #### [facility] [address] [place] [address] Akin Aysha Eosinophils (Bld) [#/Vol] 0.2 103/ul Normal 0.0-0.7 [facility] Comment on above: Performed By: #### C BC #### [facility] [address] [place], [place] [id number] Akin Aysha Eosinophils/100 WBC (Bld) 1.6 % Normal 0.9-7.0 [facility] Comment on above: Performed By: #### C BC #### [facility] [address] [place] [address] Akin Aysha Erythrocyte distribution width (RBC) [Ratio] 12.1 % Normal 11.0-15.0 [facility] Comment on above: Performed By: #### C BC #### [facility] [address] [place] [address] Akin Aysha Hematocrit (Bld) [Volume fraction] 42.5 % Normal 36.0-48.0 [facility] Comment on above: Performed By: #### C BC #### [facility] [address] [place] [address] Akin Aysha Hemoglobin (Bld) [Mass/Vol] 14.5 g/dL Normal 12.0-16.0 [facility] Comment on above: Performed By: #### C BC #### [facility] [address] [place] [address] Akin Aysha IG # 0.03 10e3/ul Normal 0.00-0.03 [facility] Comment on above: Performed By: #### C BC #### [facility] [address] [place] [address] Akin Aysha IG % 0.3 % Normal 0.0-0.5 [facility] Comment on above: Performed By: #### C BC #### [facility] [address] [place], [place] [id number] Akin Aysha Lymphocytes (Bld) [#/Vol] 4.2 103/ul Critically high 1.2-3.8 [facility] Comment on above: Performed By: #### C BC #### [facility] [address] [place], [place] [id number] Akin Aysha Lymphocytes/100 WBC (Bld) 36.2 % Normal 20.5-60.0 [facility] Comment on above: Performed By: #### C BC #### [facility] [address] [place], [place] [id number] Akin Aysha MANUAL DIFF REQ NO Normal [facility] Comment on above: Performed By: #### C BC #### [facility] [address], [place] [address] Akin Aysha MCH (RBC) [Entitic mass] 31.3 pg Normal 26.7-34.0 [facility] Comment on above: Performed By: #### C BC #### [facility] [address] [place] [address] Akinenio Olmstead MCHC (RBC) [Mass/Vol] 34.1 g/dL Normal 29.9-35.2 [facility] Comment on above: Performed By: #### C BC #### [facility] [address] [place] [address] Akin Aysha MCV (RBC) [Entitic vol] 91.6 fL Normal 81.0-99.0 [facility] Comment on above: Performed By: #### C BC #### [facility] [address] [place] [address] Akin Aysha Monocytes (Bld) [#/Vol] 0.8 103/ul Normal 0.3-0.8 [facility] Comment on above: Performed By: #### C BC #### [facility] [address] [place] [address] Akin Aysha Monocytes/100 WBC (Bld) 7.2 % Normal 1.7-12.0 [facility] Comment on above: Performed By: #### C BC #### [facility] [address] [place] [address] Akin Aysha Neutrophils (Bld) [#/Vol] 6.2 103/ul Normal 1.4-6.5 [facility] Comment on above: Performed By: #### C BC #### [facility] [address] [place] [address] Akin Aysha Neutrophils/100 WBC (Bld) 54.0 % Normal 43.0-75.0 [facility] Comment on above: Performed By: #### C BC #### [facility] [address] [place] [address] Akin Aysha Platelet mean volume (Bld) [Entitic vol] 8.7 fL Critically low 9.5-13.5 [facility] Comment on above: Performed By: #### C BC #### [facility] [address] [place] [address] Akinenio Olmstead Platelets (Bld) [#/Vol] 333 103/ul Normal 150-450 [facility] Comment on above: Performed By: #### C BC #### [facility] [address] [place] [address] Akinenio Olmstead RBC (Bld) [#/Vol] 4.64 106/ul Normal 4.20-5.40 [facility] Comment on above: Performed By: #### C BC #### [facility] [address] [place] [address] Akinenio Segundoen WBC (Bld) [#/Vol] 11.5 103/ul Critically high 4.0-11.0 [facility] Comment on above: Performed By: #### C BC #### [facility] [address] [place] [address] Akin Aysha ER URINE PROFILEon 0 Bilirubin [Mass/Vol] Negative Normal NEGATIVE [facility] Comment on above: Performed By: #### I NFLUAB #### [facility] [address] [place] [address] Akin Aysha BLOOD Negative Normal NEGATIVE [facility] Comment on above: Performed By: #### I NFLUAB #### [facility] [address] [place] [address] Akin Aysha Clarity (U) CLOUDY Normal [facility] Comment on above: Performed By: #### I NFLUAB #### [facility] [address] [place] [address] Akin Aysha Color (U) LT. YELLOW Normal YELLOW [facility] Comment on above: Performed By: #### I NFLUAB #### [facility] [address] [place] [address] Akin Aysha ERUAHD A micrscopic examination will be performed if indicated. Normal [facility] Comment on above: Performed By: #### I NFLUAB #### [facility] [address] [place] [address] Akin Aysha Glucose [Mass/Vol] Negative Normal NEGATIVE [facility] Comment on above: Performed By: #### I NFLUAB #### [facility] [address] [place] [address] Akin Aysha Ketones Ql (U) Negative Normal NEGATIVE [facility] Comment on above: Performed By: #### I NFLUAB #### [facility] [address] [place] [address] Akin Aysha Nitrite Ql (U) Negative Normal NEGATIVE [facility] Comment on above: Performed By: #### I NFLUAB #### [facility] [address] [place] [address] Akin Aysha pH (Bld) 8.5 Normal 5-9 [facility] Comment on above: Performed By: #### I NFLUAB #### [facility] [address] [place] [address] Akin Aysha Protein (U) [Mass/Vol] Negative Normal [facility] Comment on above: Performed By: #### I NFLUAB #### [facility] [address] [place] [address] Akin Aysha SPEC GRAVITY 1.015 Normal 1.005-<=1.025 [facility] Comment on above: Performed By: #### I NFLUAB #### [facility] [address] [place] [address] Akni Aysha UR MICRO IND NOT INDICATED Normal The [facility] Comment on above: Performed By: #### I NFLUAB #### [facility] [address] [place] [address] Akin Aysha Urobilinogen Qn (U) 0.2 EU/dl Normal [facility] Comment on above: Performed By: #### I NFLUAB #### [facility] [address] [place] [address] Akin Aysha WBC (Bld) [#/Vol] Negative Normal NEGATIVE [facility] Comment on above: Performed By: #### I NFLUAB #### [facility] [address] [place] [address] Akin Aysha INFLUENZA A AND B AGon 04-03 -2020 INFLUANEGH SEE BELOW Normal [facility] Comment on above: Result Comment: Nega tive for Flu A protein angiten. Infection due to Flu A cannot be ruled out. Flu A angiten in the sample may be below the detection limit of the test. Performed By: #### I NFLUAB #### [facility] [address] [place] [address] Akin Olmstaed INFLUBNEGH SEE BELOW Normal [facility] Comment on above: Result Comment: Nega tive for Flu B protein antigen. Infection due to Flu B cannot be ruled out. Flu B antigen in the sample may be below the detection limit of the test. Performed By: #### I NFLUAB #### [facility] [address] [place] [address] Akin Olmstead INFLUENZA A AG Negative Normal NEGATIVE SEE COMMENT [facility] Comment on above: Performed By: #### I NFLUAB #### [facility] [address] [place] [address] Akin Olmstead INFLUENZA B AG Negative Normal NEGATIVE SEE COMMENT [facility] Comment on above: Performed By: #### I NFLUAB #### [facility] [address] [place] [address] Akin Olmstead INTERNAL CONTROLS Within Normal Limits Normal Wi thin Normal Limits [facility] Comment on above: Performed By: #### I NFLUAB #### [facility] [address] [place] [address] Akin Aysha LACTATE/LACTIC ACIDon 2019 Lactate [Moles/Vol] 0.8 mmol/L Normal 0.7-2.0 [facility] Comment on above: Performed By: #### I NFLUAB #### [facility] [address] [place] [address] Akin Olmstead PROF CHEM 8 (BAS METB)on Anion gap [Moles/Vol] 9.3 mmol/L Normal [facility] Comment on above: Performed By: #### B MP #### [facility] [address] [place] [address] Akinenio Olmstead Calcium [Mass/Vol] 9.4 mg/dL Normal 8.4-10.2 [facility] Comment on above: Performed By: #### B MP #### [facility] [address] [place] [address] Akin Aysha Chloride [Moles/Vol] 105 mmol/L Normal 98-107 [facility] Comment on above: Performed By: #### B MP #### [facility] [address] [place] [address] Akin Aysha CO2 [Moles/Vol] 28.3 mmol/L Normal 22.0-30.0 The [facility] Comment on above: Performed By: #### B MP #### [facility] [address] [place] [address] Akin Aysha Creatinine [Mass/Vol] 0.81 mg/dL Normal 0.52-1.04 [facility] Comment on above: Performed By: #### B MP #### [facility] [address] [place] [address] Akin Aysha EGFR-AF KUWAITI >60 Normal >=60 [facility] Comment on above: Performed By: #### B MP #### [facility] [address] [place] [address] Akin Aysha EGFR-NON AF KUWAITI >60 Normal >=60 [facility] Comment on above: Performed By: #### B MP #### [facility] [address] [place] [address] Akin Aysha Glucose [Mass/Vol] 111 mg/dL Critically high 74-106 [facility] Comment on above: Performed By: #### B MP #### [facility] [address] [place] [address] Akin Aysha Potassium [Moles/Vol] 3.6 mmol/L Normal 3.4-5.0 [facility] Comment on above: Performed By: #### B MP #### [facility] [address] [place] [address] Akin Aysha Sodium [Moles/Vol] 139 mmol/L Normal 137-145 [facility] Comment on above: Performed By: #### B MP #### [facility] [address] [place], [place] [address] Akin Olmstead Urea nitrogen [Mass/Vol] 13.0 mg/dL Normal 7.0-17.0 [facility] Comment on above: Performed By: #### B MP #### [facility] [address] [place], [place] [address] Akin Olmstead Urea nitrogen/Creatinine [Mass ratio] 16.0 mg/mg Normal [facility] Comment on above: Performed By: #### B MP #### [facility] [address] [place], [place] [address] Akin Olmstead XR CHEST 2 Von 05-12-2019 [...] DEGROOT Date: 2019-05-11 23:24 Normal [facility] DNA Extraction and holdon DNA Extraction and hold SEE BELOW Normal [facility] Comment on above: Result Comment: SPEC IMEN: BLOOD DNA EXTRACTION AND HOLD SPECIMEN TYPE: EDTA Blood Date Received: 12/28/18 EXTRACTION: DNA extracted from 3.0ml EDTA blood Method: GentBrazzlebox Puregene Reagents from [employer] ANALYSIS: DNA concentration: 571.4ng/ul Total volume DNA: 225ul (in TE buffer) DNA Purity 260/280 Ratio: 1.9 Total DNA yield: 128.6ug STORAGE AND SPECIAL INSTRUCTIONS: The extracted DNA is stored in the [facility] at -700C in the DS & EX 2019 box. Holding for future testing. Any questions regarding this sample, please contact [facility] at [phone]. VANESSA CUNHA 01/11/2019 Performed By: #### D YAAZ #### [address] [address] SURGICAL PATHOLOGYon 019 SURGICAL PATHOLOGY Specimen #: [id number] Submitting Physician: ASHWINI CELEBREZZE, M.D. FINAL DIAGNOSIS Soft tissue, left posterior shoulder, excision - Lipoma with fat necrosis, see comment. SAMRA/NACHO/rw 08/08/2018 COMMENT Many thanks for sending in consultation this case of a [id number] with a lesion on the left posterior [...] Please call the Dermatopathology Consultation Service at [phone] with questions or if additional follow-up information becomes available regarding this patient. This case was reviewed in conjunction with the Dermatopathology Fellow, Dr. Clements. Fam Wong M.D. (Electronic Signature) ____ SPECIMEN SUBMITTED A: 12 SLIDES ([id number]: A-J) CLINICAL DATA None provided. Date of Report: 08/08/2018 Date of Procedure: 08/04/2018 Date of Receipt: 08/04/2018 Submitted by: ASHWINI SIMONS M.D. Location: Diagnostic interpretation performed at [facility], [address] [place] [address]. CLIA Number: [id number] Normal [facility] Comment on above: Performed By: #### S #### See report for performing lab information. Vital Signs Date Time Vital Sign Value Performing Clinician Maurice villegas 07-05-2024 11:27-0400 Body mass index (BMI) [Ratio] 28.72 kg/m2 Juan Violet DO Work Phone: [facility] 07-05-2024 11:27-0400 Body weight 68.95 kg Juan Violet DO Work Phone: [facility] 07-05-2024 11:27-0400 Diastolic blood pressure 68 mm[Hg] Juan Violet DO Work Phone: [facility] 07-05-2024 11:27-0400 Systolic blood pressure 112 mm[Hg] Juan Violet DO Work Phone: [facility] 05-31-2024 10:28-0400 Body mass index (BMI) [Ratio] 29.15 kg/m2 Duc Boggs CASTING CLEANER Work Phone: [facility] 05-31-2024 10:28-0400 Body weight 69.97 kg Duc Boggs CASTING CLEANER Work Phone: [facility] 05-31-2024 10:28-0400 Diastolic blood pressure 80 mm[Hg] Duc Ambrose CASTING CLEANER Work Phone: [facility] 05-31-2024 10:28-0400 Systolic blood pressure 122 mm[Hg] Duc Ambrose CASTING CLEANER Work Phone: [facility] 04-26-2024 13:07-0400 Body mass index (BMI) [Ratio] 29.17 kg/m2 Juan Violet DO Work Phone: [facility] 04-26-2024 13:07-0400 Body weight 70.03 kg Juan Violet DO Work Phone: [facility] 04-26-2024 13:07-0400 Diastolic blood pressure 74 mm[Hg] Juan Violet DO Work Phone: [facility] 04-26-2024 13:07-0400 Systolic blood pressure 112 mm[Hg] Juan Violet DO Work Phone: [facility] 03-30-2024 10:52-0500 Body mass index (BMI) [Ratio] 29.06 kg/m2 Roxy Junior PA Work Phone: [facility] 03-30-2024 10:52-0500 Body weight 69.76 kg Roxy Junior PA Work Phone: [facility] 03-30-2024 10:52-0500 Diastolic blood pressure 70 mm[Hg] Roxy Junior PA Work Phone: [facility] 03-30-2024 10:52-0500 Systolic blood pressure 100 mm[Hg] Roxy Junior PA Work Phone: [facility] 03-29-2024 10:29-0500 Body height 154.9 cm Haresh Huizra PAPER REWINDER-MANAGER OF TRANSPORTATION Work Phone: [facility] 03-29-2024 10:29-0500 Body mass index (BMI) [Ratio] 28.72 kg/m2 Haresh Huizar PAPER REWINDER-MANAGER OF TRANSPORTATION [facility] 03-29-2024 10:29-0500 Body weight 68.95 kg Haresh Huizar PAPER REWINDER-MANAGER OF TRANSPORTATION [facility] 03-29-2024 10:29-0500 Diastolic blood pressure 74 mm[Hg] Haresh Huizar PAPER REWINDER-MANAGER OF TRANSPORTATION Work Phone: [facility] 03-29-2024 10:29-0500 Heart rate 91 /min Haresh Huizar PAPER REWINDER-MANAGER OF TRANSPORTATION [facility] Phone[facility] 03-29-2024 10:29-0500 SaO2% (BldA) [Mass fraction] 98 % Haresh Huizar PAPER REWINDER-MANAGER OF TRANSPORTATION [facility] 03-29-2024 10:29-0500 Systolic blood pressure 110 mm[Hg] Haresh Huizar PAPER REWINDER-MANAGER OF TRANSPORTATION Work Phone: [facility] 08-18-2023 08:48-0400 Body height 152.4 cm Delon Pedersen MD Work Phone: [facility] 08-18-2023 08:48-0400 Body mass index (BMI) [Ratio] 29.29 kg/m2 Delon Pedersen MD Work Phone: [facility] 08-18-2023 08:48-0400 Body weight 68.04 kg Delon Pedersen MD Work Phone: [facility] 08-18-2023 08:48-0400 Diastolic blood pressure 80 mm[Hg] Delon Pedersen MD Work Phone: [facility] 08-18-2023 08:48-0400 Heart rate 78 /min Delon Pedersen MD Work Phone: [facility] 08-18-2023 08:48-0400 SaO2% (BldA) [Mass fraction] 97 % Delon Pedersen MD Work Phone: [facility] 08-18-2023 08:48-0400 Systolic blood pressure 112 mm[Hg] Delon Pedersen MD Work Phone: [facility] 04-15-2023 12:35-0500 Body height 152.4 cm Rhea Cuevaser PAPER REWINDER-MANAGER OF TRANSPORTATION Work Phone: [facility] 04-15-2023 12:35-0500 Body mass index (BMI) [Ratio] 29.02 kg/m2 Rhea Cuevaser PAPER REWINDER-MANAGER OF TRANSPORTATION Work Phone: [facility] 04-15-2023 12:35-0500 Body weight 67.41 kg Rhea Cuevaser PAPER REWINDER-MANAGER OF TRANSPORTATION Work Phone: [facility] 04-15-2023 12:35-0500 Diastolic blood pressure 70 mm[Hg] Rhea Cuevaser PAPER REWINDER-MANAGER OF TRANSPORTATION Work Phone: [facility] 04-15-2023 12:35-0500 Heart rate 80 /min Rhea Cuevaser PAPER REWINDER-MANAGER OF TRANSPORTATION Work Phone: [facility] 04-15-2023 12:35-0500 SaO2% (BldA) [Mass fraction] 97 % Rhea Moreno PAPER REWINDER-MANAGER OF TRANSPORTATION Work Phone: [employer] 04-15-2023 12:35-0500 Systolic blood pressure 116 mm[Hg] Rhea Moreno PAPER REWINDER-MANAGER OF TRANSPORTATION Work Phone: [employer] Encounters Encounter Date Encounter Type Care Provider Facility Start: 07-05-2024 End: 07-05-2024 Bamboo flowsheet Juan Violet DO Work Phone: [facility] Start: 07-05-2024 End: 07-05-2024 Bamboo flowsheet Juan Violet DO Work Phone: [facility] Start: 07-05-2024 End: 07-05-2024 Patient encounter procedure Juan Violet DO Work Phone: [facility] Work Phone: Start: 07-05-2024 End: 07-05-2024 Periodic preventive med est patient 18-39 yrs Juan Violet DO Work Phone: [facility] Comment on above: Well woman exam with routine gynecological exam Start: 05-31-2024 End: 05-31-2024 Bamboo flowsheet Duc Boggs CASTING CLEANER Work Phone: [facility] Start: 05-31-2024 End: 05-31-2024 Bamboo flowsheet Duc Boggs CASTING CLEANER Work Phone: [facility] Start: 05-31-2024 End: 05-31-2024 Postop follow up visit related to original px Duc Boggs CASTING CLEANER Work Phone: [facility] Comment on above: Postoperative follow -up Start: 05-31-2024 End: 05-31-2024 ambulatory DUC BOGGS Not Available Start: 05-12-2024 End: 05-12-2024 ambulatory [facility] Work Phone: Start: 05-12-2024 End: 05-12-2024 Departed Referred Brody [facility] Start: 05-12-2024 End: 05-12-2024 Clinisync Result Encounter Juan Violet DO Work Phone: [facility] Unsolicited Start: 05-12-2024 End: 05-12-2024 Clinisync Result Encounter Juan Violet DO Work Phone: [facility] Unsolicited Start: 04-30-2024 End: 04-30-2024 [facility] Start: 04-30-2024 End: 04-30-2024 Departed Referred Bro[facility] Start: 04-28-2024 End: 05-01-2024 Telephone encounter Patsy Gonzalez RN [facility] Comment on above: Surgical Or Dental C learance Start: 04-26-2024 End: 04-26-2024 Office outpatient visit 15 minutes Juan Violet DO Work Phone: [facility] Comment on above: Pre-op evaluation; Pelvic pain in female; History of ovarian cyst; Left lower quadrant pain; Abnormal uterine bleeding (AUB) Start: 04-26-2024 End: 04-26-2024 Preprocedural examination done Juan Violet DO Work Phone: [facility] Start: 04-26-2024 End: 04-26-2024 ambulatory JUAN VIOLET Not Available Start: 04-19-2024 End: 04-19-2024 ambulatory ROXY RENUKA Not Available Start: 03-30-2024 End: 03-30-2024 Bamboo flowsheet Roxy RUIZ Work Phone: [facility] Start: 03-30-2024 End: 03-30-2024 Bamboo flowsheet Roxy RUZI Work Phone: [facility] Start: 03-30-2024 End: 03-30-2024 ambulatory ROXY JUNIOR Not Available Start: 03-30-2024 End: 03-30-2024 Office outpatient visit 15 minutes Roxy RUIZ Work Phone: [facility] Comment on above: Pelvic pain in femal e Start: 03-29-2024 End: 03-29-2024 Office outpatient visit 15 minutes Haresh Huizar PAPER REWINDER-MANAGER OF TRANSPORTATION Work Phone: [facility] Comment on above: Paroxysmal atrial fi brillation ([facility]-HCC) (Primary Dx); Atrial flutter, unspecified type (CMS-HCC) Start: 03-29-2024 End: 03-29-2024 ambulatory HARESH Espinosa YEN [facility] Start: 03-28-2024 End: 03-28-2024 Telephone [facility] Start: 03-27-2024 ambulatory Lashell Trevino ity:[facility] Start: 03-23-2024 End: 03-23-2024 Office outpatient visit 15 minutes Roxy RUIZ Work Phone: [facility] Comment on above: Pelvic pain in femal e Start: 03-23-2024 End: 03-23-2024 ambulatory ROXY JUNIOR Not Available Start: 03-23-2024 End: 03-23-2024 Bamboo flowsheet Roxy RUIZ Work Phone: [facility] Start: 03-23-2024 End: 03-24-2024 Bamboo flowsheet Roxy RUIZ Work Phone: [facility] Start: 03-23-2024 End: 03-23-2024 Clinisync Result Encounter Roxy RUIZ Work Phone: [facility] Unsolicited Start: 03-23-2024 End: 03-24-2024 External Result Encounter Roxy RUIZ Work Phone: [facility] Unsolicited Start: 03-06-2024 End: 03-07-2024 Telephone encounter Shelli Mccann [facility] Comment on above: Tachy events on loop recorder Start: 01-20-2024 End: 01-20-2024 Bamboo flowsheet Roxy RUIZ Work Phone: [facility] Start: 01-20-2024 End: 01-20-2024 Bamboo flowsheet Roxy Junior PA Work Phone: [facility] Start: 01-20-2024 End: 01-20-2024 Office outpatient visit 15 minutes Roxy Junior JOSEPH Work Phone: [facility] Comment on above: Left lower quadrant pain; Follow-up exam; History of ovarian cyst Start: 01-20-2024 End: 01-20-2024 ambulatory ROXY JUNIOR Not Available Start: 11-29-2023 End: 11-29-2023 Emergency department patient visit [facility] Start: 09-03-2023 End: 09-03-2023 Telephone encounter Nallely [...] Start: 08-18-2023 End: 08-18-2023 ambulatory DELON PEDERSEN [facility] Start: 08-17-2023 Telephone encounter Keily Wu CMA [facility] Start: 06-16-2023 End: 06-16-2023 ambulatory JUAN VIOLET Not Available Start: 06-11-2023 End: 07-02-2023 Telephone encounter José Miguel Clemons RN [facility] Comment on above: Loop (Loop at EOS) Start: 05-31-2023 End: 06-01-2023 Refill Mi Blake PAPER REWINDER-MANAGER OF TRANSPORTATION Work Phone: [facility] Comment on above: Med Refill Start: 04-30-2023 End: 04-30-2023 ambulatory Juan Violet Work Phone: [facility] Work Phone: Start: 04-30-2023 End: 04-30-2023 Departed Referred Juan Lazo Work Phone: [facility] Start: 04-15-2023 End: 04-15-2023 ambulatory [facility] Start: 04-15-2023 Encounter for other preprocedural examination [facility] Start: 04-15-2023 Telephone encounter [facility] Comment on above: Surgical Or Dental C learance Start: 04-15-2023 End: 04-15-2023 Office outpatient visit 15 minutes Rhea Moreno PAPER REWINDER-MANAGER OF TRANSPORTATION Work Phone: [facility] Comment on above: Preop examination (P rimary Dx); Paroxysmal atrial fibrillation (CMS-HCC); Near syncope; Atrial flutter, unspecified type (CMS-HCC) Start: 04-15-2023 End: 04-15-2023 Preprocedural examination done Rhea Moreno PAPER REWINDER-MANAGER OF TRANSPORTATION Work Phone: [employer] Start: 04-07-2023 End: 04-07-2023 Departed Referred Juan Lazo Work Phone: [facility] Start: 07-15-2022 End: 07-15-2022 ambulatory MD Trevon Pruitt Work Phone: [facility] Work Phone: Start: 07-15-2022 End: 07-15-2022 Departed Referred MD Trevon Pruitt Work Phone: [facility] Start: 07-09-2022 Patient encounter status Rhea Moreno PAPER REWINDER-MANAGER OF TRANSPORTATION Work Phone: [employer] Work Phone: Start: 03-23-2020 End: 03-23-2020 Patient encounter procedure ADILIA PEREZ Facility:[facility] Start: 05-11-2019 End: 05-12-2019 Patient encounter procedure DELON DE LA CRUZ Facility:[facility] Procedures Date Procedure Procedure Detail Performing Clinician Start: 05-12-2024 ALL CBC WITH AUTO DIFF Juan Lazo DO Work Phone: Start: 04-30-2024 Urine culture Brody soares DO Start: 03-29-2024 Ecg routine ecg w/le ast 12 lds w/i&r Haresh Huizar PAPER REWINDER-MANAGER OF TRANSPORTATION Work Phone: Start: 03-23-2024 RECURRENT VAGINITIS (HTRX) Roxy RUIZ Work Phone: Start: 03-23-2024 ALL CBC WITH AUTO DIFF Roxy RUIZ Work Phone: Start: 08-18-2023 Follow-up visit Follow-up DELON PEDERSEN Start: 06-16-2023 Microscopic observat ion [Identifier] in Cervix by Cyto stain Delon Pedersen MD Work Phone: Start: 04-15-2023 Ecg routine ecg w/le ast 12 lds w/i&r Rhea Moreno PAPER REWINDER-MANAGER OF TRANSPORTATION Work Phone: Start: 05-12-2019 End: 05-12-2019 Microscopic examination of blood, culture DELON DE LA CRUZ Comment on above: Performed By: #### I NFLUAB #### [facility] [address] [place] [address] Akin Segundoen Plan of Treatment Date Care Activity Detail Author Start: 06-15-2026 Screening for malign ant neoplasm of cervix Pap Smear [facility] Start: 09-26-2025 Tobacco Counseling Tobacco Counselin g [facility] Start: 03-29-2025 Adult BMI Screening Adult BMI Screen ing [facility] Start: 03-29-2025 Tobacco Screening Tobacco Screening [facility] Start: 11-28-2024 Tobacco Screening Tobacco Screening [facility] Start: 10-04-2024 End: 10-04-2024 Patient encounter procedure 10/04/2024 8:00 AM EDT Office Visit [facility] [address] [place] [address] Delon Pedersen MD [address] [place] [address] [facility] Start: 09-01-2024 Adult BMI Screening Adult BMI Screen ing [facility] Start: 09-01-2024 Tobacco Screening Tobacco Screening [facility] Start: 07-05-2024 End: 07-05-2024 Patient encounter procedure [facility] Comment on above: Arrived Start: 06-21-2024 End: 06-21-2024 Patient encounter procedure 06/21/2024 11:00 AM EDT Office Visit [facility] [address] [place] [address] Juan Lazo DO [address], [place] [address] [facility] Start: 05-31-2024 End: 05-31-2024 Patient encounter procedure 05/31/2024 10:40 AM EDT Office Visit [facility] [address] [place] [address] Duc Boggs, CASTING CLEANER [address] [address] Arrived [facility] Comment on above: Arrived Start: 04-30-2024 Urine culture [facility] Start: 04-30-2024 Bacteria identified in Urine by Culture Urine Culture [facility] Start: 04-19-2024 End: 04-19-2024 Professional / ancillary services management 04/19/2024 9:30 AM EDT Ancillary Procedure [facility] [address] [place] [address] [facility] Start: 04-14-2024 Adult BMI Screening Adult BMI Screen ing [facility] Start: 04-14-2024 Tobacco Screening Tobacco Screening [facility] Start: 03-30-2024 End: 03-30-2024 Patient encounter procedure 03/30/2024 10:20 AM EST Office Visit [facility] [address] [facility] [place] [place] [id number] Roxy Junior PA [address] [place] [address] [place] [address] [facility] Start: 03-29-2024 End: 03-29-2024 Patient encounter procedure 03/29/2024 10:30 AM EST Office Visit [facility] [address] [place] [phone] Haresh Huizar, PAPER REWINDER-MANAGER OF TRANSPORTATION [address] [place] [address] [facility] Start: 01-20-2024 End: 01-19-2025 US for US PELVIS-TRANSVAG IF INDICATED Imaging Routine History of ovarian cyst Expected: 01/20/2024 (Approximate), Expires: 01/19/2025 [facility] Work Phone: Comment on above: Expected: 01/20/2024 (Approximate), Expires: 01/19/2025 Start: 01-20-2024 End: 01-20-2024 Patient encounter procedure 01/20/2024 9:10 AM EST Office Visit [facility] [address] [facility] [place] [place] [address] Roxy Junior PA [address] [place] [address] Dr [place], [facility] Arrived [facility] Comment on above: Arrived Start: 10-10-2023 Influenza vaccination Influenza Vacc ine [facility] Start: 08-18-2023 End: 08-18-2023 Patient encounter procedure 08/18/2023 8:45 AM EDT Office Visit [facility] [address] [place] [id number] Delon Pedersen MD [address] [place] [address] [facility] Start: 10-09-2022 Influenza vaccination Influenza Vacc ine [facility] Start: 10-05-2022 DTaP,Tdap and Td Vaccines (7 - Td or Tdap) DTaP,Tdap and Td Vaccines (7 - Td or Tdap) [facility] Start: 2008 Screening for malign ant neoplasm of cervix Pap Smear [facility] Start: 2005 Adult BMI Follow Up Plan Adult BMI Follow Up Plan [facility] Start: 1999 Depression Screening Depression Scre ening [facility] Start: 1987 Tobacco Counseling Tobacco Counselin g [facility] Bacteria identified in Urine by Culture Urine culture Microbiology Routine Pelvic pain in female Ordered: 03/23/2024 [facility] Comment on above: Ordered: 03/23/2024 CBC W Auto Different ial panel - Blood CBC and differential Lab Routine Pelvic pain in female Ordered: 03/23/2024 [facility] Work Phone: Comment on above: Ordered: 03/23/2024 CHLAMYDIA TRACHOMATI S (GENITO/STI) CHLAMYDIA TRACHOMATIS (GENITO/STI) Lab Routine Pelvic pain in female Ordered: 03/23/2024 [facility] Comment on above: Ordered: 03/23/2024 Cytology Cervical or vaginal smear or scraping study Pap Smear Pathology and Cytology Routine Well woman exam with routine gynecological exam Ordered: 07/05/2024 [facility] Work Phone: Comment on above: Ordered: 07/05/2024 Human papilloma viru s DNA [Presence] in Unspecified specimen by Probe with amplification HPV DNA probe, amplified Microbiology Routine Well woman exam with routine gynecological exam Ordered: 07/05/2024 [facility] Comment on above: Ordered: 07/05/2024 Neisseria gonorrhoea e DNA [Presence] in Unspecified specimen by IAM with probe detection Neisseria gonorrhea DNA probe, direct Lab Routine Pelvic pain in female Ordered: 03/23/2024 [facility] Comment on above: Ordered: 03/23/2024 SURESWAB(R) ADVANCED VAGINITIS PLUS, TMA SURESWAB(R) ADVANCED VAGINITIS PLUS, TMA Pathology and Cytology Routine Pelvic pain in female Ordered: 03/23/2024 [facility] Comment on above: Ordered: 03/23/2024 Payers Date Payer Category Payer Self-pay 2021 Worker's Compensation WORKER'S C 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 WORKER'S [id number] ONLY [id number] 2021-Present [id number] [id number] [id number] 2017 Medicaid (Managed Care) [employer] [id number] 2002 Medicaid [employer] [id number] 2002-Present [phone] [place] [address] [id number] 2002 Medicaid HMO [employer] [id number] 1987 Unknown [id number] [id number] .593 1987 Unknown [id number] 2.16.840.1.466303.3.579.2 .593 1987 Unknown [id number] 2.16.840.1.187450.3.579.2 .1286 1987 Unknown [id number] 2.16.840.1.923112.3.579.2 .1286 1987 Unknown [id number] 2.16.840.1.245549.3.579.2 .1286 1987 Unknown [id number] 2.16.840.1.732563.3.579.2 .1286 1987 Unknown [id number] 2.16.840.1.840590.3.579.2 .718 1987 Unknown [id number] 2.16.840.1.511691.3.579.2 .1259 1987 Unknown [id number] 2.16.840.1.025884.3.579.2 .1259 1987 Unknown [id number] 2.16.840.1.665655.3.579.2 .1259 1987 Unknown [id number] 2.16.840.1.094324.3.579.2 .1259 1987 Unknown [id number] 2.16.840.1.321620.3.579.2 .1259 1987 Unknown [id number] 2.16.840.1.036554.3.579.2 .1259 1987 Unknown [id number] [id number] .1259 1959 Unknown [id number] Social History Date Type Detail Facility Tobacco smoking stat [facility] Unknown if ever smoked [facility] Work Phone: Start: 1985 Sex Assigned At Female F [facility] Start: 04-03-2010 End: 08-18-2023 Tobacco smoking status NHIS Smokes tobacco daily [facility] Start: 04-03-2010 End: 04-03-2020 History of tobacco use Cigarette Smoker [facility] Start: 01-20-2024 End: 07-05-2024 Alcoholic beverage intake Lifetime non-drinker (finding) [facility] Start: 02-10-2023 End: 01-20-2024 History of Social function [facility] Start: 02-10-2023 End: 01-20-2024 Tobacco use panel [facility] Start: 02-10-2023 Alcohol Comment caffeine: 1-2 cups per day [facility] Start: 1985 Sex assigned at Not on file P [facility] Start: 10-29-2022 End: 08-18-2023 Tobacco use and exposure Smokeless tobacco non-user [facility] Start: 11-29-2023 End: 03-29-2024 Alcoholic beverage intake Current non-drinker of alcohol (finding) [facility] Childcare Unknown [facility] Start: 09-13-2014 End: 05-14-2024 Sex Female (finding) [facility] Tobacco smoking stat us [facility] Unknown if ever smoked [facility] Work Phone: Medical Equipment Procedure Code Equipment Code Equipment Origin al Text Equipment Identifier Dates Lux -Dx Ii + [facility] - [id number] Start: 09-02-2023 Lux-Dx-06/05/2020 [id number] Start: 06-05-2020 Clinical Notes 04-15-2023 to 07-05-2024 Aysha Aguilar LPN - 07/05/2024 11:00 AM Angelo Boggs NP - 05/31/2024 10:40 AM EDTTelephone Encounter - Patys Gonzalez RN - 04/28/2024 3:20 PM Alexis Aguilar LPN - 04/26/2024 1:00 PM EDT Note Date & Type Note Facility 07-05-2024 History of Presen t illness Narrative Reason [...] Left serous otitis media, unspecified chronicity Stroke ([facility]) 2020 HISTORY PAST MEDICAL HISTORY SOCIAL HISTORY Past Medical History: Diagnosis Date Anxiety with depression anxiety/depression Left serous otitis media, unspecified chronicity Stroke ([facility]) 2020 Social History Tobacco Use Smoking status: [...] nursing note reviewed. Exam conducted with a survey cad technician present. Vitals: Estimated body mass index is 28.72 kg/m as calculated from the following: Height as of 12/24/20: 5' 1 . Weight as of this [...] Juan Lazo DO documented in this encounter [facility] 05-31-2024 History of Presen t illness Narrative Reason for Appointment: Patient ID: Scott Hooker is a 39 y.o. female who presents for Post-op Visit Patient presents today for 2 Week Post Op Follow Up appointment. MEDICATIONS Current Outpatient Medications [...] Left serous otitis media, unspecified chronicity Stroke ([facility]) 2020 HISTORY PAST MEDICAL HISTORY SOCIAL HISTORY Past Medical History: Diagnosis Date Anxiety with depression anxiety/depression Left serous otitis media, unspecified chronicity Stroke ([facility]) 2020 Social History Tobacco Use Smoking status: [...] Gastrointestinal: Negative. Genitourinary: Negative. Musculoskeletal: Negative. Skin: Incisional site healed. No complaints. Neurological: Negative. All other systems reviewed and [...] Skin: General: Skin is warm and dry. Comments: Incisional site to umbilicus healed completely and wound edges well approximated. Small incision to left abdomen healed completely. Psychiatric: Mood and Affect: Mood normal. Behavior: Behavior normal. Vitals and nursing note reviewed. Exam conducted with a survey cad technician present. Vitals: Estimated body mass index is 29.15 kg/m as calculated from the following: Height as of 12/25/19: 5' 1 . Weight as of this encounter: 154 lb 4 oz. BP: 122/80 No LMP recorded. Patient has had an ablation. ASSESSMENT & PLAN ICD-10-CM 1. Postoperative follow-up Z09 Post Op Follow Up: Patient presents today for a postop follow up after having a D&C Hysteroscopy performed at [facility] with Dr. Lazo. Pathology results was reviewed with the patient in great detail and all restrictions have been lifted. Follow Up: Patient is to return to the office for annual exam unless needed otherwise. Documented by Duc Boggs NP on behalf of: Duc Boggs NP documented in this encounter [facility] 04-28-2024 Miscellaneous Notes Surgeon: DR. Juan Lazo Type of surgery: Diagnostic Laparoscopy Date of surgery: 05/12/24 Surgery location: [facility] Type of anesthesia: General On a blood thinner?: Eliquis- Asking how long can hold for surgery. Indication? Afib On an antiplatelet?: N/A Date of last EK03/29/24 Last office visit date and who they saw: 03/29/24-Danyell Knutson CNP. W/ Haresh Huizar History of CVA/TIA, DVT/PE? TIA 04/02/20 Will message ANM since SER is on vacation Can hold Eliquis for 48 hours pre-op. Recommend resumption as soon as possible once cleared by surgeon. Thanks Preop clearance letter per ANM faxed via [employer]ipp[employer] to Dr. Lazo's office. Fax confirmed sent via [employer]. documented in this encounter [facility] 04-28-2024 Telephone encounter Note Surgeon: DR. Juan Lazo Type of surgery: Diagnostic Laparoscopy Date of surgery: 05/12/24 Surgery location: [facility] Type of anesthesia: General On a blood thinner?: Eliquis- Asking how long can hold for surgery. Indication? Afib On an antiplatelet?: N/A Date of last EK03/29/24 Last office visit date and who they saw: 03/29/24-Danyell Knutson CNP. W/ Haresh Huizar History of CVA/TIA, DVT/PE? TIA 04/02/20 Will message ANM since SER is on vacation [facility] 04-28-2024 Telephone encounter Note Can hold Eliquis for 48 hours pre-op. Recommend resumption as soon as possible once cleared by surgeon. Thanks [facility] 04-28-2024 Telephone encounter Note Preop clearance letter per ANM faxed via [employer]ipp[employer] to Dr. Lazo's office. Fax confirmed sent via [employer]. [facility] 04-26-2024 History of Presen t illness Narrative Reason for Appointment: Patient ID: Scott Hooker is a 39 y.o. female who presents for No chief complaint on file. Patient presents today for Pre Op appointment. Patient is scheduled to undergo Diagnostic Laparoscopy, possible ANGEL, possible FOE, possible BSO on 05/12/[address] Lazo at [facility]. MEDICATIONS Current Outpatient Medications Medication Instructions [...] Left serous otitis media, unspecified chronicity Stroke ([facility]) 2020 HISTORY PAST MEDICAL HISTORY SOCIAL HISTORY Past Medical History: Diagnosis Date Anxiety with depression anxiety/depression Left serous otitis media, unspecified chronicity Stroke ([facility]) 2020 Social History Tobacco Use Smoking status: [...] nursing note reviewed. Exam conducted with a survey cad technician present. Vitals: Estimated body mass index is [...] reviewed, and patient is to proceed to [facility] OR. Follow Up: Patient is to follow up between 1-2 weeks post operative to assess proper healing and recovery from procedure. Documented by Aysha Aguilar LPN on behalf of: Juan Lazo DO documented in this encounter [facility] 03-30-2024 History of Presen t illness Narrative [...] Left serous otitis media, unspecified chronicity Stroke ([facility]) 2020 HISTORY PAST MEDICAL HISTORY SOCIAL HISTORY Past Medical History: Diagnosis Date Anxiety with depression anxiety/depression Left serous otitis media, unspecified chronicity Stroke ([facility]) 2020 Social History Tobacco Use Smoking status: [...] calculated from the following: Height as of 20: 5' 1 . Weight as of this [...] of: JOSEPH Welsh documented in this encounter [facility] 03-29-2024 History of Presen t illness Narrative Scott Hooker Date of visit: 03/29/2024 Date of : 1985 Age: 39 y.o. Patient Active Problem List Diagnosis Near syncope SOB (shortness of breath) Mass of subcutaneous tissue of back Lipoma of back Pyelonephritis Atrial flutter (CMS-HCC) Paroxysmal atrial fibrillation (CMS-HCC) Status post placement of implantable loop recorder - [place] Preop cardiovascular exam No Known Allergies Current [...] daily, Toprol 25 mg daily Lives in [place] with kids. Works - [employer]. Baseline functional [...] Medical History: Diagnosis Date Anxiety Atrial fibrillation ([facility]) Dental disease lower dentures Depression Endometriosis Leaky heart valve Low blood pressure Near syncope Seasonal allergies Stroke ([facility]) 03/27/2020 TIA TIA (transient ischemic attack) Visual impairment glasses No data recorded No data recorded No data recorded Past Surgical History: Procedure Laterality Date DILATION AND CURETTAGE OF UTERUS 05/2017 EXCISION LIPOMA Left 07/27/2018 Performed by Stan Dee MD at [facility] ILR Removal with Fluoro and Replacement-BSI N/A 09/02/2023 Performed by Delon Pedersen MD at [facility] () OVARIAN CYST REMOVAL 04/2018 Family History [...] XL) 25 mg 24 hr tablet Reorder [id number] Score: 3 3.2% Stroke risk per year, [...] PCP: OLMAN DURAN Referring Physician: OLMAN Duran [address] [place] [address] OLMAN Darby 03/29/24 1158 documented in this encounter [facility] 03-28-2024 Miscellaneous Notes ATTEMPTED TO CALL PT TO REMIND OF APPT SCHEDUELD FOR 03/29/2024, NO VOICE MAIL SET UP OR VOICE MAIL FULL. documented in this encounter [facility] 03-28-2024 Telephone encounter Note ATTEMPTED TO CALL PT TO REMIND OF APPT SCHEDUELD FOR 03/29/2024, NO VOICE MAIL SET UP OR VOICE MAIL FULL. [facility] 03-23-2024 History of Presen t illness [...] Left serous otitis media, unspecified chronicity Stroke ([facility]) 2020 HISTORY PAST MEDICAL HISTORY SOCIAL HISTORY Past Medical History: Diagnosis Date Anxiety with depression anxiety/depression Left serous otitis media, unspecified chronicity Stroke ([facility]) 2020 Social History Tobacco Use Smoking status: [...] of: JOSEPH Welsh documented in this encounter [facility] 03-06-2024 Miscellaneous Notes AMML for patient to call office to review tachy events from a [facility] loop recorder. Tachy events from 03/05/24 show probable AF/Aflutter with RVR, rates 169-180 bpm x 11-56 seconds @ 4146-0070. Per [facility], patient is on Eliquis. EGMs scanned [...] on Eliquis. Patient requested an appointment with JSHIRIN, patient was connected with a gallery host. EGM scanned into chart for your review. Please advise if you would like any changes. Thank you No changes, f/u as scheduled, thx! Patient called with JZL's recommendation. Patient verbalized understanding. Appointment confirmed for 03/29/24. Will continue to monitor. [facility] Telephone encounter Note AMML for patient to call office to review tachy events from a [facility] loop recorder. Tachy events from 03/05/24 show probable AF/Aflutter with RVR, rates 169-180 bpm x 11-56 seconds @ [id number]. Per [facility], patient is on Eliquis. EGMs scanned [...] with JESSI, patient was connected with a gallery host. EGM scanned into chart for your review. Please advise if you would like any changes. Thank you [facility] 03-06-2024 Telephone encounter Note No changes, f/u as scheduled, thx! [facility] 03-06-2024 Telephone encounter Note Patient called with JSHIRIN's recommendation. Patient verbalized understanding. Appointment confirmed for 03/29/24. Will continue to monitor. [facility] 01-20-2024 History of Presen t illness Narrative [...] Left serous otitis media, unspecified chronicity Stroke ([facility]) 2020 HISTORY PAST MEDICAL HISTORY SOCIAL HISTORY Past Medical History: Diagnosis Date Anxiety with depression anxiety/depression Left serous otitis media, unspecified chronicity Stroke ([facility]) 2020 Social History Tobacco Use Smoking status: [...] Laterality Date DILATION AND CURETTAGE OF UTERUS 2017 OTHER SURGICAL HISTORY uterine ablation 04/2023 REVIEW [...] of: JOSEPH Welsh documented in this encounter [facility] 09-03-2023 Miscellaneous Notes Pt calls office stating after her ILR removal yesterday she had some continued bleeding at the surgical site. In the recovery area she states the nurse changed the physicians bandage and watched it for a while before pt was discharged. Pt had noticed some more bleeding on the bandage when she got home to [place] from [facility] and called back to the [...] bleeding. Told pt would msg JESSI at [facility] to advise care for the wkend. [...] over the wkend documented in this encounter [facility] 09-03-2023 Telephone encounter Note Pt calls office stating after her ILR removal yesterday she had some continued bleeding at the surgical site. In the recovery area she states the nurse changed the physicians bandage and watched it for a while before pt was discharged. Pt had noticed some more bleeding on the bandage when she got home to [place] from [facility] and called back to the [...] not active heavy bleeding. Told pt would mspedro BOWEN at [facility] to advise care for the wkend. [facility] 09-03-2023 Telephone encounter Note She should resume her apixaban. From wound care perspective, light dressing/bandaid over the area with continued pressure if actively oozing. Monitor throughout the weekend and if still oozing, please call back. [facility] 09-03-2023 Telephone encounter Note Per JESSI response, phoned pt back. She confirms no active bleeding. Will change dressing and monitor and try to avoid area irritated by previous bandage. She will resume Eliquis. Will call after hours or office if any further concerns over the wkend [facility] 08-18-2023 Miscellaneous Notes Pt scheduled and educated while in office, copy of education in separate labeled encounter. Pt vu and all questions answered. documented in this encounter [facility] 08-18-2023 Telephone encounter Note Pt scheduled and educated while in office, copy of education in separate labeled encounter. Pt vu and all questions answered. [facility] 08-18-2023 Miscellaneous Notes Images from the original note were not included. [facility]: Loop recorder implant/removal procedures YOUR PROCEDURE: Loop recorder replacement YOUR DOCTOR: Dr. Delon Pedersen DATE/TIME OF YOUR PROCEDURE: 09/01 @ 3:30 pm - ARRIVE AT 2:30 pm LOCATION OF YOUR PROCEDURE: [address] [address] Arrive to Entrance C, check in at [...] the nurse at the office The automated Veniti messages about your procedure can be incorrect. Please do NOT follow any automated Veniti messages as these can provide incorrect information about your procedure time, arrival time or pre op instructions. Please follow the instructions provided by the nurse in the office at the time of your visit, in the mail or through a separate Aheadt message labeled pre-op instructions . If you are unsure, please call the Surgery office [phone] WHAT TO BRING WITH YOU TO THE HOSPITAL: Bring your photo ID, insurance card and a current list of all your medications (including over the counter medications, vitamins and supplements) You do not need a driver manager for your procedure You may have up to TWO visitors for your procedure CALL THE SURGERY OFFICE AT [phone] IMMEDIATELY IF: You have any illness, infection [...] staff at the hospital or call the [facility] office at [phone] Inspect your incisions every day. Call immediately if you have any swelling, redness, bumps, drainage, your skin around your incision feels warm/hot or if you have a fever. Call your doctor if you have any signs of illness (fever 100 degrees or higher, chills, shivering, nausea, vomiting, discharge from your incision. documented in this encounter [facility] 08-18-2023 Telephone encounter Note Images from the original note were not included. [facility]: Loop recorder implant/removal procedures YOUR PROCEDURE: Loop recorder replacement YOUR DOCTOR: Dr. Delon Pedersen DATE/TIME OF YOUR PROCEDURE: 09/01 @ 3:30 pm - ARRIVE AT 2:30 pm LOCATION OF YOUR PROCEDURE: [address] [address] Arrive to Entrance C, check in at [...] the nurse at the office The automated TipTaphart messages about your procedure can be incorrect. Please do NOT follow any automated MyChart messages as these can provide incorrect information about your procedure time, arrival time or pre op instructions. Please follow the instructions provided by the nurse in the office at the time of your visit, in the mail or through a separate MyChart message labeled pre-op instructions . If you are unsure, please call the Surgery office [phone] WHAT TO BRING WITH YOU TO THE HOSPITAL: Bring your photo ID, insurance card and a current list of all your medications (including over the counter medications, vitamins and supplements) You do not need a driver manager for your procedure You may have up to TWO visitors for your procedure CALL THE SURGERY OFFICE AT [phone] IMMEDIATELY IF: You have any illness, infection [...] staff at the hospital or call the [facility] office at [phone] Inspect your incisions every day. Call immediately if you have any swelling, redness, bumps, drainage, your skin around your incision feels warm/hot or if you have a fever. Call your doctor if you have any signs of illness (fever 100 degrees or higher, chills, shivering, nausea, vomiting, discharge from your incision. [facility] 08-18-2023 History of Presen t illness Narrative Scott Hooker Date of visit: 08/18/2023 Date of : 1985 Age: 38 y.o. Patient Active Problem List Diagnosis Near syncope SOB (shortness of breath) Mass of subcutaneous tissue of back Lipoma of back Pyelonephritis Atrial flutter (CMS-HCC) Paroxysmal atrial fibrillation (CMS-HCC) Status post placement of implantable loop recorder - [place] Preop cardiovascular exam No Known Allergies Current [...] thought 2/2 cardioembolic source, atrial flutter w/ [id number] 3 on apixaban 5 mg BID, s/p BSC ILR 05/2020 who presents to EP clinic at [place] for follow-up. She was last seen by [...] Medical History: Diagnosis Date Anxiety Atrial fibrillation ([facility] [place] [place]) Dental disease lower dentures Depression Endometriosis Leaky heart valve Low blood pressure Near syncope Seasonal allergies Stroke ([facility] [place] [place]) 03/27/2020 TIA TIA (transient ischemic attack) Visual impairment glasses No data recorded No data recorded No data recorded Past Surgical History: Procedure Laterality Date DILATION AND CURETTAGE OF UTERUS 05/2017 EXCISION LIPOMA Left 07/27/2018 Performed by Stan Dee MD at [facility] CYST REMOVAL 04/2018 Family History [...] mg b.i.d.. Minimal burden on loop interrogation, [employer] loop recorder from May 28, 2020 has [...] PCP: OLMAN DURAN Referring Physician: OLMAN Duran [address] [place] [address] documented in this encounter [facility] 08-18-2023 Instructions Keily Wu CMA - 08/18/2023 8:45 AM EDT Are You Ready To Kick The Habit? Free Tobacco Cessation Resources [facility] Services [facility] provide all employees with free tobacco cessation services that include: Counseling to understand nicotine addiction Education about medications that can help you successfully quit Assistance with developing a plan to quit Call to set up an individual appointment or find out when group classes will be held: Anibal [facility]: [phone] [facility]: [phone] [facility]: [phone] [facility]: [phone] Quit Smoking Action Plan and Resources [facility] offers an eight-week, online smoking cessation plan to all [facility] employees, regardless of whether [employer] is your medical insurance provider. Go to [email or web address] lness and click the Health Risk Assessment and Resources link to get started. In the D2S menu, click Action Plans instead of Health Risk Assessment to access the Quit Smoking Action Plan. Additional smoking cessation resources are also available to all [facility] employees on the Tqqpn6Rbivyi web page at www.[email or web address]/nayana waters. [employer] Tobacco Cessation Program If [employer] is your medical insurance provider, there are more free resources available to you, including: No copays or deductibles on local tobacco cessation counseling services to help you quit Prescription assistance for tobacco cessation medications to help you quit For details about the tobacco cessation program available to [employer] members, go to www.[employer] (Search: Tobacco Cessation Program). [place] Tobacco Quit Line 8-750-YWGX-NOW ( ) is a toll-free, telephonic service that helps [place] residents quit smoking and using tobacco. It is staffed by experts who tailor a quit plan for you and provide you with advice. [place] Tobacco Quit Line 8-442-ROJB-NOW ( ) is a toll-free, telephonic service that helps [place] residents quit smoking and using tobacco. It is staffed by experts who tailor a quit plan for you and provide you with advice. Two weeks of nicotine replacement therapy may be provided at no charge, if needed. Additional Resources These national organizations also offer free information and resources to help you quit tobacco: [place] [employer]--www.cancer.org/healthy /stayawayfromtobacco [place] [employer]--www.heart.org (Search: Quit Smoking) Centers for Disease Control and Prevention--www.cdc.gov/tobacco [place] Lung Association--www.lungusa.org documented in this encounter [facility] 06-11-2023 Miscellaneous Notes Pt calls in to discuss letter she received regarding her Loop being at [facility] ( 05/28/2023). She does have her annual EP appt with [facility] on 08/18/2023. She is worried that her Loop will not work until then. She requested that [facility] be notified as she thinks he [...] without success Will forward to [facility] for review/mrm Very reasonable to replace [...] schedule ILR reimplant documented in this encounter [facility] 06-11-2023 Telephone encounter Note Pt calls in to discuss letter she received regarding her Loop being at [facility] ( 05/28/2023). She does have her annual EP appt with [facility] on 08/18/2023. She is worried that her Loop will not work until then. She requested that [facility] be notified as she thinks he will want to replace it before her appointment. Additionally she is having wrist surgery sometime in next month or so and wants her Loop to monitor her during surgery. Her last appointment with [facility] was 04/17/23 with [facility]. Loop shows rare Aflutter and occasional AT events.Attempted to reassure her that it would be OK to wait until appointment without success Will forward to [facility] for review/mrm [facility] 06-11-2023 Telephone encounter Note Very reasonable to replace her loop recorder. EP surgery schedulers: Please schedule loop extraction/reimplantation with me, next available, service week okay. No need for NPO, no meds held, no labs needed, local sedation. [employer] vendor. [facility] 06-11-2023 Telephone encounter Note Message left for pt with update from JZL/mrm [facility] 06-11-2023 Telephone encounter Note LM for pt to call back and discuss dates for Loop explant/reimplant. Case prepped and paper work in call back folder. tkm [facility] 06-11-2023 Telephone encounter Note 2 nd message left to return call to schedule ILR reimplant [facility] 05-31-2023 Miscellaneous Notes Please sign and route. Thank you ANNETTE 04/15/23 CBC & CMP 12/09/22 documented in this encounter [facility] 05-31-2023 Telephone encounter Note Please sign and route. Thank you ANNETTE 04/15/23 CBC & CMP 12/09/22 [facility] 04-15-2023 Miscellaneous Notes Patient saw MARCOS [...] for 48 hours. documented in this encounter [facility] 04-15-2023 Telephone encounter Note Patient saw [...] saying okay to hold for 48 hours. [facility] 04-15-2023 History of Presen t illness Narrative Scott Hooker Date of visit: 04/15/2023 Date of : 1985 Age: 38 y.o. Patient Active Problem List Diagnosis Near syncope SOB (shortness of breath) Mass of subcutaneous tissue of back Lipoma of back Pyelonephritis Atrial flutter (CMS-HCC) Paroxysmal atrial fibrillation (CMS-HCC) Status post placement of implantable loop recorder - [facility] Preop cardiovascular exam No Known Allergies Current [...] Complaint Patient presents with Pre-op Exam ov-pre cx-zyatcqtvv-fysazssl-dr lazo [id number]-[facility] History of Present Illness Scott Hooker is a 38-year-old female past medical history of vasovagal syncope, prior TIA with renal infarct in 2020, paroxysmal atrial flutter with CHADS2 Vasc score of 3 on apixaban, [employer] implanted loop recorder Patient presents today for routine follow-up and preoperative risk stratification She will be having a uterine ablation at [facility] later this month She does notice [...] Medical History: Diagnosis Date Anxiety Atrial fibrillation ([facility] [place] [place]) Dental disease lower dentures Depression Endometriosis Leaky heart valve Low blood pressure Near syncope Seasonal allergies Stroke ([facility] [place] [place]) 03/27/2020 TIA TIA (transient ischemic attack) Visual impairment glasses No data recorded No data recorded No data recorded Past Surgical History: Procedure Laterality Date DILATION AND CURETTAGE OF UTERUS 05/2017 EXCISION LIPOMA Left 07/27/2018 Performed by Stan Dee MD at [facility] CYST REMOVAL 04/2018 Family History [...] of TIA / renal infarct in 2020 [employer] implanted loop recorder Patient is low risk for upcoming surgery, okay to hold apixaban 48 hours prior to procedure and resume as soon as possible once deemed safe postprocedure. Continue remote monitoring Of her loop recorder, she has had brief runs of atrial flutter. Six-month follow-up in [place] with OLMAN Newell 04/15/23 2:44 PM Patient was seen when Dr Paz was present and immediately available in office suite. TODAYS ORDERS Orders Placed This Encounter Procedures POCT EKG FOLLOW UP Return in about 5 months (around 09/15/2023). PCP: OLMAN DURAN Referring Physician: OLMAN Duran [address] [place] [address] OLMAN Damon 04/15/23 1442 documented in this encounter [facility] System Evaluation note No assessment inform ation available [facility] Work Phone: Evaluation note Diagnosis Left lower quadrant pain Abdominal pain, left lower quadrant Follow-up exam Unspecified follow-up examination History of ovarian cyst Personal history of other genital system and obstetric disorders documented in this encounter [facility] HealthcareEvaluation [facility]* Diagnosis Pelvic pain in female Unspecified symptom associated with female genital organs documented in this encounter [facility] HealthcareEvaluation note* Diagnosis Preop examination- Primary Unspecified pre-operative examination Paroxysmal atrial fibrillation (CMS-HCC) Atrial fibrillation Near syncope Atrial flutter, unspecified type (CMS-HCC) documented in this encounter [facility] SystemEvaluation note* Diagnosis Atrial flutter, unspecified type (CMS-HCC) documented in this encounter [facility] SystemEvaluation note* Diagnosis Atrial flutter, unspecified type (CMS-HCC)- Primary documented in this encounter [facility] SystemEvaluation note* Diagnosis Paroxysmal atrial fibrillation (CMS-HCC)- Primary Atrial fibrillation Atrial flutter, unspecified type (CMS-HCC) [facility] Diagnosis Pelvic pain in female Unspecified symptom associated with female genital organs documented in this encounter [facility] HealthcareEvaluation note* Diagnosis Pre-op evaluation Pelvic pain in female Unspecified symptom associated with female genital organs History of ovarian cyst Personal history of other genital system and obstetric disorders Left lower quadrant pain Abdominal pain, left lower quadrant Abnormal uterine bleeding (AUB) documented in this encounter [facility] HealthcareEvaluation note* Diagnosis Postoperative follow-up Follow-up examination, following unspecified surgery documented in this encounter [facility] HealthcareEvaluation note* Diagnosis Well woman exam with routine gynecological exam Routine gynecological examination [facility] filedocumented in [facility] SystemInstructionsNot on filedocumented in this encounterMer[facility] SystemInstructionsNot on filedocumented in this encounterMer[facility] SystemInstructionsNot on filedocumented in this encounterMer[facility] InstructionsNot on filedocumented in this encounterMer[facility] InstructionsNot on filedocumented in this encounterMer[facility] InstructionsNot on filedocumented in this encounterMer[facility] InstructionsNot on filedocumented in this [facility] Summary Purpose Family History No Family History Records FoundNo Family History Records FoundNo Family History Records FoundNo Family History Records FoundNo Family History Records FoundNo Family History Records FoundNo Family History Records FoundNo Family History Records Found Advance Directives Date Activated Date Inactivated Comments 04/02/2020 4:24 PM 04/05/2020 6:23 PM Latest Code Status on File Code Status Date Activated Date Inactivated Comments Full Code 04/02/2020 4:24 PM 04/05/2020 6:23 PM Chief Complaint and Reason for Visit Chief Complaint N63.25 Chief Complaint Unknown Unknown Chief Complaint Admit Date Unknown April 30, 2024 6:2 5pm Chief Complaint Admit Date Unknown March 23rd, 2025 6:2 5pm Unknown May 12, 2024 2:29 pm Additional Source Comments INFORMATION SOURCE (unrecogn ized section and content) DATE CREATED AUTHOR 08/09/[address] [facility] DATE CREATED AUTHOR AUTHOR'S ORGANIZ ATION 01/13/2019 [facility] DATE CREATED AUTHOR AUTHOR'S ORGANIZ ATION 03/27/2020 [facility] DATE CREATED AUTHOR AUTHOR'S ORGANIZ ATION 04/16/2023 [facility] DATE CREATED AUTHOR AUTHOR'S ORGANIZ ATION 03/31/2024 [facility] DATE CREATED AUTHOR AUTHOR'S ORGANIZ ATION 05/16/2024 [facility] DATE CREATED AUTHOR AUTHOR'S ORGANIZ ATION 05/18/2024 [facility] DATE CREATED AUTHOR AUTHOR'S ORGANIZ ATION 06/01/2024 [facility] EPIC Care Teams (unrecognized sec tion and content) Team Status: Inactive Member Role Status Dates Trevon Pruitt MD Attending Provider Active Team Status: Inactive Member Role Status Dates Juan Lazo Attending Provider Active Start: Viridiana mar 2023 End: April 07, 2023 Team Status: Inactive Member Role Status Dates Juan Lazo Attending Provider Active Start: [facility] 2023 End: April 30, 2023 Applications Coordinator Relationship Specialty Start Date End Date Lashell Moeller MD [address] [place] [phone] PCP - General Family Medicine 03/03/23 Applications Coordinator Relationship Specialty Start Date End Date Lashell Moeller MD [address] [place] [phone] PCP - General Family Medicine 03/03/23 Applications Coordinator Relationship Specialty Start Date End Date Lashell Moeller APRN-MANAGER OF TRANSPORTATION PCP - General Family Medicine 01/22/21 Applications Coordinator Relationship Specialty Start Date End Date Lashell Moeller MD [address] [place] [phone] PCP - General Family Medicine 03/03/23 Applications Coordinator Relationship Specialty Start Date End Date Lashell Moeller MD [address] [place] [phone] PCP - General Family Medicine 03/03/23 Applications Coordinator Relationship Specialty Start Date End Date Lashell Moeller APRN-MANAGER OF TRANSPORTATION [address] [place] [phone] PCP - General Family Medicine 01/22/21 Applications Coordinator Relationship Specialty Start Date End Date Lashell Moeller APRN-MANAGER OF TRANSPORTATION [address] [place] [address] PCP - General Family Medicine 01/22/21 Applications Coordinator Relationship Specialty Start Date End Date Lashell Moeller APRN-MANAGER OF TRANSPORTATION [address] [place] [address] PCP - General Family Medicine 01/22/21 Applications Coordinator Relationship Specialty Start Date End Date Lashell Moeller APRN-MANAGER OF TRANSPORTATION [address] [place] [address] PCP - General Family Medicine 01/22/21 Applications Coordinator Relationship Specialty Start Date End Date Lashell Moeller APRN-MANAGER OF TRANSPORTATION [address] [place] [address] PCP - General Family Medicine 01/22/21 Applications Coordinator Relationship Specialty Start Date End Date Lashell Moeller APRN-MANAGER OF TRANSPORTATION [address] [place] [address] PCP - General Family Medicine 01/22/21 Applications Coordinator Relationship Specialty Start Date End Date Lashell Moeller APRN-CNP [address] [place] [address] PCP - General Family Medicine 01/22/21 Applications Coordinator Relationship Specialty Start Date End Date Lashell Moeller APRN-MANAGER OF TRANSPORTATION PCP - General Family Medicine 01/22/21 Applications Coordinator Relationship Specialty Start Date End Date Lashell Moeller APRN-CNP PCP - General Family Medicine 01/22/21 Applications Coordinator Relationship Specialty Start Date End Date Lashell Moeller MD [address] [place] [phone] PCP - General Family Medicine 03/03/23 Applications Coordinator Relationship Specialty Start Date End Date Lashell Moeller MD [address] [place], [place] [phone] PCP - General Family Medicine 03/03/23 Applications Coordinator Relationship Specialty Start Date End Date Lashell Moeller MD [address] [place], [place] [phone] PCP - General Family Medicine 03/03/23 Applications Coordinator Relationship Specialty Start Date End Date Lashell Moeller APRN-CNP PCP - General Family Medicine 01/22/21 Team Status: Inactive Member Role Status Dates Brody Walton DO Attending Provider Active S tart: April 30, 2024 End: April 30, 2024 Applications Coordinator Relationship Specialty Start Date End Date Lashell Moeller MD [address] [place] [phone] PCP - General Family Medicine 03/03/23 Team Status: Inactive Member Role Status Dates Juan Lazo DO Attending Provider Active Start : May 12, 2024 End: May 12, 2024 Applications Coordinator Relationship Specialty Start Date End Date Lashell Moeller MD [address] [place] [phone] PCP - General Family Medicine 03/03/23 Goals (unrecognized section and content) [...] encounterGoals may be documented in an alternate sectionGoals may be documented in an alternate section Reason for Visit (unrecogniz ed section and content) Reason Comments ER Follow-up Reason Onset Date Comments Tachy events on loop recorder 03/06/2024 Reason Comments Pelvic Pain Reason Comments Pre-op Exam ov-pre op-clearance- ablation-dr lazo [id number] [place] [address] Reason Onset Date Comments Surgical Or Dental [...] ov afib w rvr polly w pt Reason Onset Date Comments Surgical Or Dental Clearance 04/28/2024 Reason Comments Post-op Visit Reason Comments Well Women Visit FOR RECORDS PERTAINING TO PATIENTS WHO ARE [...] BE BASED ON THE PRIMARY CLINICAL RECORDS. [facility]. provides no warranty or guarantee of the accuracy or completeness of information in this document.
== END 2024-07-05 19:59 | disposition home or self-care (01) ==
LOC: LAB 19:58
PROVIDERS: Visit Provider Obstetrics & Gynecology
DX: Z01.419 Encounter for gynecological examination (general) (routine) without abnormal findings (principal)
CPT/HCPCS: 87624; 88175